=== PATIENT | female | born 1945 | race Caucasian/White ===

== ENCOUNTER → 2016-10-09 | Outpatient (CLI) | payer OTHER ==
[~2016-10-09] MED LIST: ALBU4TAB10 PO; ALBUAER INH; ALLO100T PO; ALPR-411 PO; ALPR1TAB3 PO; ARFO15NE INH; ATOR-24 PO; ATR25; BMX1 PO; BUME1TAB PO; CHOL20007 PO; CLIN300C2 PO; CPR500 PO; DILT240C75 PO; DOCU-94 PO; EFLO13.94 TOP; FLVHFA110 INH; FLVHFA44 INH; FURO-85 PO; FURO40TA3 PO; GFNSR600 PO; GLC/500 PO; HMLI7525 SC; HYDCR1CL TOP; HYDR-3124 PO; INSDGIPEN SC; INSU75IN2 SC; INSU75IN2 SQ; LEVO50TA6 PO; LISI-461 PO; LVQ750 PO; MAGN400T6 PO; MCRB100 PO; MCRK20 PO; MCTP EXT; METF-384 PO; METO1TAB69 PO; MULT-845 PO; MULTCHW; NVLGI/PEN SC; OXGN; QVRINH80 INH; RIVA1TAB4 PO; RRALBUT083 PO; SALI0.6510 NAE; TPRSR/100 PO; TPRSR50 PO; TRIA0.022 EXT; TRIA0.1C20 TOP; TRMCR515 TOP; VNTHFA/IN INH; XRL20 PO; ZLF/50 PO
[2016-10-09 17:39] LABS: BLOOD UREA NITROGEN 24 mg/dl (7-18); BUN/CREATININE RATIO 21.5 (10-20); CARBON DIOXIDE 33 mmol/L (21-32); CHLORIDE 94 mmol/L (98-107); GLUCOSE 150 mg/dl (70-99); POTASSIUM 4.5 mmol/L (3.5-5.1); SODIUM 135 mmol/L (136-145)
--- NOTE | 2016-10-15 12:17 | CODING QUERY MEDICAL NECESSITY ---
SUPPORTING DIAGNOSIS NEEDED A supporting diagnosis is required for the test/procedure performed on this patient in order for us to be reimbursed by the patient's insurance. Please provide a supporting diagnosis for the following test/procedure listed below next to the test name along with your signature. *If there is no additional diagnosis for this patient that would support the following test/procedure please document that below next to the test/procedure. Test(s)/Procedure(s) that require a supporting diagnosis: DOS 10/09 * Vitamin D DIAGNOSIS: Provider Signature: Date: Thank you Kaelyn Gaspar Health Information Management Once completed, please kindly fax back to [phone] For questions please call [phone]
== END | disposition home or self-care (01) ==
LOC: C.LABPVFM 07:30
PROVIDERS: ATTEND Family Medicine
DX: E11.9 Type 2 diabetes mellitus without complications (principal); M10.9 Gout, unspecified; M79.1 Myalgia

== ENCOUNTER 2016-10-18 21:05 | Emergency (ER) | payer OTHER ==
[~2016-10-18] VITALS: Ht 157.5 cm; Wt 156.0 kg
[~2016-10-18 21:05] MED LIST changes: -ALBU4TAB10 PO; -ALLO100T PO; -ALPR1TAB3 PO; -ARFO15NE INH; -ATOR-24 PO; -ATR25; -BMX1 PO; -BUME1TAB PO; -CHOL20007 PO; -CLIN300C2 PO; -CPR500 PO; -DOCU-94 PO; -FLVHFA44 INH; -FURO-85 PO; -FURO40TA3 PO; -GFNSR600 PO; -GLC/500 PO; -HMLI7525 SC; -HYDCR1CL TOP; -HYDR-3124 PO; -INSDGIPEN SC; -INSU75IN2 SC; -INSU75IN2 SQ; -LEVO50TA6 PO; -LISI-461 PO; -LVQ750 PO; -MCRB100 PO; -MCRK20 PO; -MCTP EXT; -METF-384 PO; -METO1TAB69 PO; -MULTCHW; -NVLGI/PEN SC; -QVRINH80 INH; -RIVA1TAB4 PO; -RRALBUT083 PO; -SALI0.6510 NAE; -TPRSR/100 PO; -TPRSR50 PO; -TRIA0.022 EXT; -TRMCR515 TOP; -VNTHFA/IN INH; -XRL20 PO; -ZLF/50 PO
[2016-10-18 21:11] VITALS: TEMP 36.6; Ht 157.5 cm; Wt 156.0 kg
[2016-10-18] MEDS ORDERED: RRALBUT083 PO (22:15)
[2016-10-18] MEDS ORDERED: CHOL20007 PO (22:15)
[2016-10-18 22:37] VITALS: BP 136/53; PULSE 72; O2SAT 94
--- NOTE | 2016-10-18 23:45 | EMERGENCY ROOM VISIT NOTE ---
History Report prepared by Jose: Becky Palma Under the Supervision of: Dr. Emerson Petit D.O. First contact with patient: 21:15 Chief Complaint: BLEEDING Stated Complaint: HEAD BLEED / BIOPSY EARLIER TODAY History of Present Illness The patient is a 71 year old female who presents to the Emergency Room with complaints of persistent bleeding from the left side of her forehead this evening. The patient states that she had [address] Harden earlier today around 3:30PM, including one on her forehead and one on her nose, for possible skin cancer. After her appointment, she started to have bleeding from her forehead which was controlled by the time she got home. She had 3 more episodes of bleeding this evening, most recently about an hour and a half ago, when the biopsy site on her forehead started to bleed profusely. She notes that she started feeling slightly weak and wobbly after some time. Currently, she is feeling better. She is on Xarelto for a-fib. Her most recent dose was last night. She is on 3L oxygen all the time. Pt denies headache, change in vision, fevers, chest pain, shortness of breath, nausea, vomiting, diarrhea, pain with urination, and melena. Source of History: patient Onset: this evening Position: head (forehead) Timing: other (persistent) Associated Symptoms: + weakness, No SOB, No chest pain, No diarrhea, No fevers, No headache, No melena, No nausea, No urinary symptoms, No vomiting Review of Systems See HPI for pertinent positives & negatives. A total of 10 systems reviewed and were otherwise negative. Past Medical & Surgical Medical Problems: (1) Acquired lymphedema (2) Atrial flutter (3) CHF exacerbation (4) Diab W Oth Coma, Type I [Juvenile Type], Uncontrolled (5) Diabetes mellitus type 2, uncontrolled (6) Endometrial cancer (7) Epistaxis (8) Hypertension Nos (9) Hypertension Nos (10) Hypothyroidism (11) Morbid obesity (12) Obesity (13) Sciatica Family History FH: Alzheimers disease Social History Smoking Status: Never Smoker Alcohol Use: none Drug Use: none Marital Status: Housing Status: lives with family Occupation Status: unemployed Current/Historical Medications Scheduled Allopurinol (Zyloprim), 100 MG PO DAILY AT 1200 Atorvastatin (Lipitor), 40 MG PO QAM Cholecalciferol (Vitamin D3), 2,000 INTER.UNIT PO DAILY Diltiazem Hcl Extended Release (Diltiazem Hcl), 240 MG PO QAM Fluticasone Propionate (Flovent Hfa), 2 PUFFS INH BID Furosemide (Lasix), 40 MG PO QAM Insulin Lispro Protamine & Lis (Humalog Mix 75/25 Kwikpen), 80 UNITS SC Q12 Levothyroxine Sodium (Levothyroxine Sodium), 50 MCG PO QAM Lisinopril (Zestril), 10 MG PO DAILY AT 1200 Magnesium Oxide (Mag-Ox), 400 MG PO DAILY AT NOON Metformin Hcl (Glucophage), 1,000 MG PO BID Metoprolol Succinate (Metoprolol Succinate ER), 100 MG PO QAM Multiple Vitamins W/ Minerals (Centrum Silver Adult 50+), 1 TAB PO QAM Oxygen (Oxygen), 3 LITERS NA CONTINOUS Rivaroxaban (Xarelto), 20 MG PO QPM Scheduled PRN Albuterol (Proventil Hfa), 2 PUFFS INH QID PRN for Shortness of Breath Albuterol Sulf (Albuterol Sulfate), 1 UNIT PO Q4 PRN for SOB/Wheezing Alprazolam (Xanax), 0.5 MG PO BID PRN for Anxiety Eflornithine Hcl (Vaniqa), 1 APPLN TOP BID PRN for Hirsutism Hydroxyzine Hcl (Atarax), 25 MG PO Q8 PRN for Itching Triamcinolone Acet 0.1% (Aristocort 0.1%), 1 APPLN TOP BID PRN for Dermatitis Allergies Coded Allergies: Mineral Oil (Verified Allergy, Intermediate, LEGS SWELL, 10/18/16) Penicillins (Verified Allergy, Intermediate, HIVES, 10/18/16) Petrolatum (Verified Allergy, Intermediate, LEGS SWELL, 10/18/16) Metronidazole (Unverified Allergy, Unknown, NAUSEA, 10/18/16) Uncoded Allergies: FLAVONOIDS (Allergy, Unknown, ., 05/17/16) Physical Exam Vital Signs Date Time Temp Pulse Resp B/P Pulse Ox O2 Delivery O2 Flow Rate FiO2 10/18/16 22:37 72 18 136/53 94 Room Air 10/18/16 21:20 75 10/18/16 21:11 36.6 75 26 148/55 95 Nasal Cannula 3.0 Physical Exam GENERAL: Morbidly obese, sitting up in bed, disheveled, on chronic 3 L nasal cannula FACE: Bleeding from biopsy site above left eyebrow, just smaller than a dime sized lesion. Biopsy site under left eye without bleeding. EYE EXAM: normal conjunctiva, PERRL and EOM's grossly intact OROPHARYNX: no exudate, no erythema, lips, buccal mucosa, and tongue normal and mucous membranes are moist NECK: supple, no nuchal rigidity, no adenopathy, non-tender LUNGS: Coarse bilaterally to auscultation. Normal chest wall mechanics HEART: no murmurs, S1 normal and S2 normal ABDOMEN: abdomen soft, non-tender, normo-active bowel sounds, no masses, no rebound or guarding. SKIN: no rashes and no bruising UPPER EXTREMITIES: upper extremities are grossly normal. LOWER EXTREMITIES: No pitting edema. NEURO EXAM: Normal sensorium Medical Decision & Procedures ED Course ED COURSE: Vital signs were reviewed and showed normal vitals. The patients medical record was reviewed The above diagnostic studies were performed and reviewed. ED treatments and interventions as stated above. 2115: The patient was evaluated in room C3. A complete history and physical examination was performed. 4: Upon reevaluation, the patient is resting comfortably. She did not bleed through the dressing.I discussed my findings with the patient and she understands and agrees with the treatment plan. Based on the patients age, coexisting illnesses, exam and lab findings the decision to treat as an outpatient was made. The patient remained stable while under my care. The patient appeared well at the time of discharge. Medical Decision Patient is a 71-year-old female who presents the ER for bleeding from biopsy site which was performed by dermatology. This started intermittently throughout the day following the biopsy around 3 PM. This started again just prior to arrival he cannot control the bleeding. She presented via ALS. She is no other complaints at this time. Pressure dressing was applied with Surgicel. Bleeding was contained. She is monitored for over an hour with no recurrence of the bleeding. Dressing was removed and there is no active bleeding. It was reapplied again and she was instructed to follow-up with her primary care doctor tomorrow. Patient was discharged at her baseline with no other complaint. She was instructed to take her Xa inhibitor tonight as she normally would. Discussed with Pt concerning signs and symptoms to watch out for. Pt was instructed to follow up with their PCP and discussed with the patient their option to return to the ED at anytime for persistent or worsening symptoms. The appropriate anticipatory guidance and out-patient management, including indications for return to the emergency department, were explained at length to the patient and understood. Impression Primary Impression: Post-op bleeding Scribe Attestation The scribe's documentation has been prepared under my direction and personally reviewed by me in its entirety. I confirm that the note above accurately reflects all work, treatment, procedures, and medical decision making performed by me. Departure Information Dispostion Home / Self-Care Referrals Raymond Fierro M.D. (PCP) Patient Instructions ED Wound Check Post Op Bleeding, My [facility] Additional Instructions Please follow up with your primary care doctor with in the next 24 hours. Any worsening of your symptoms, please return to the ED immediately. This includes recurrence of the bleeding, passing out, feeling lightheaded or dizzy, or any other concerning signs or symptoms from your standpoint. Please take your Xa inhibitor as previously prescribed. Please keep the bandage on tonight and follow up with your primary care doctor or surgeon to have it removed tomorrow. Please do not shower bathe Fulvicin place. Problem Qualifiers Primary Impression: Post-op bleeding Surgical complication system/body Area: skin Procedure type: dermatologic Qualified Codes: L76.21 - Postprocedural hemorrhage of skin and subcutaneous tissue following a dermatologic procedure
[2016-10-19] MEDS ORDERED: FURO40TA3 PO (11:23)
[2016-10-19] MEDS ORDERED: INSU75IN2 SC (13:12)
[2016-10-19] MEDS ORDERED: TPRSR/100 PO (18:31)
[2016-10-19] MEDS ORDERED: LEVO50TA6 PO (18:31)
[2016-10-19] MEDS ORDERED: ZLF/50 PO (19:44)
[2016-10-19] MEDS ORDERED: TRMCR515 TOP (19:44)
[2016-10-19] MEDS ORDERED: VNTHFA/IN INH (19:44)
[2016-10-19] MEDS ORDERED: METF-384 PO (21:09)
[2016-10-19] MEDS ORDERED: LISI-461 PO (21:09)
[2016-10-19] MEDS ORDERED: RIVA1TAB4 PO (21:09)
[2016-10-19] MEDS ORDERED: ATOR-24 PO (21:09)
[2016-10-19] MEDS ORDERED: ALLO100T PO (21:32)
[2016-10-19] MEDS ORDERED: HYDR-3124 PO (21:32)
[2016-11-20] MEDS ORDERED: INSDGIPEN SC (13:32)
[2016-11-20] MEDS ORDERED: MCRK20 PO (13:32)
[2016-11-20] MEDS ORDERED: BMX1 PO (13:32)
[2016-11-20] MEDS ORDERED: TPRSR50 PO (13:32)
[2017-02-09] MEDS ORDERED: METO1TAB69 PO (23:41)
[2017-02-16] MEDS ORDERED: CPR500 PO (08:08)
[2017-02-16] MEDS ORDERED: ALPR1TAB3 PO (08:08)
[2017-02-16] MEDS ORDERED: BMX1 PO ×2 (08:08→15:01)
[2017-02-16] MEDS ORDERED: MCRK20 PO (08:08)
[2017-02-16] MEDS ORDERED: MCRB100 PO (08:08)
[2017-02-16] MEDS ORDERED: XRL20 PO (08:10)
[2017-03-13] MEDS ORDERED: CLIN300C2 PO (12:33)
== END 2016-10-18 23:04 | disposition home or self-care (01) ==
LOC: EDBD 21:05 → C.EDC 21:08
DX: L76.21 Postprocedural hemorrhage of skin and subcutaneous tissue following a dermatologic procedure (principal); I10 Essential (primary) hypertension; E11.9 Type 2 diabetes mellitus without complications; E03.9 Hypothyroidism, unspecified; I48.92 Unspecified atrial flutter; I50.9 Heart failure, unspecified; Z79.4 Long term (current) use of insulin; Z79.84 Long term (current) use of oral hypoglycemic drugs; Z79.899 Other long term (current) drug therapy; Z88.0 Allergy status to penicillin; Z88.8 Allergy status to other drugs, medicaments and biological substances

== ENCOUNTER → 2016-10-18 | Outpatient (CLI) | payer OTHER | END | disposition home or self-care (01) | LOC: C.PATHSPEC 12:16 | PROVIDERS: ATTEND Plastic Surgery | DX: L98.9 Disorder of the skin and subcutaneous tissue, unspecified (principal); L57.0 Actinic keratosis ==

== ENCOUNTER 2016-10-19 19:28 | Inpatient (IN) | payer OTHER ==
[2016-10-18 23:18] VITALS: BP 134/61; PULSE 89; TEMP 36.9; O2SAT 94; BMI 63.5
[~2016-10-19] VITALS: Ht 157.5 cm; Wt 154.5 kg
[~2016-10-19 19:28] MED LIST changes: +CHOL20007 PO; +FURO40TA3 PO; +INSU75IN2 SC; +LEVO50TA6 PO; +RRALBUT083 PO; +TPRSR/100 PO
[2016-10-19 19:36] VITALS: Ht 157.5 cm; Wt 154.5 kg
[2016-10-19] MEDS ORDERED: SODIUM CHLORIDE 0.9% 1000ML 1,000 ML IV STA (19:41)
[2016-10-19] MEDS ORDERED: TRMCR515 TOP (19:44)
[2016-10-19] MEDS ORDERED: ZLF/50 PO (19:44)
[2016-10-19] MEDS ORDERED: VNTHFA/IN INH (19:44)
--- NOTE | 2016-10-19 19:47 | EMERGENCY ROOM VISIT NOTE ---
History Report prepared by Jose: Shirley Gtz Under the Supervision of: Dr. Lina Alexander M.D. First contact with patient: 19:34 Chief Complaint: WEAKNESS Stated Complaint: WEAKNESS, LOW SPO2 STAT History of Present Illness The patient is a 71 year old female who presents to the Emergency Room with complaints of persistent weakness for the past day. She is accompanied by her . She reports yesterday she had a skin biopsy done on her face by Dr. Harden, [facility] [place] [facility], to check for skin cancer. Afterwards, the site started bleeding and didn't stop until she came here to the ED last night. She is currently on blood thinners. She reports she was released home last night, and this morning when she woke up, she felt extremely weak. The patient states she had been ambulating OK before this, but today had to use her walker to get around, which is unusual for her. She denies any recent fevers. 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 A total of 10 systems reviewed and were otherwise negative. Past Medical & Surgical Medical Problems: (1) Acquired lymphedema (2) Atrial flutter (3) CHF exacerbation (4) Diab W Oth Coma, Type I [Juvenile Type], Uncontrolled (5) Diabetes mellitus type 2, uncontrolled (6) Endometrial cancer (7) Epistaxis (8) Hypertension Nos (9) Hypertension Nos (10) Hypothyroidism (11) Morbid obesity (12) Obesity (13) Sciatica Family History FH: Alzheimers disease Social History Smoking Status: Never Smoker Alcohol Use: none Drug Use: none Marital Status: Housing Status: lives with family Occupation Status: unemployed Current/Historical Medications Scheduled Allopurinol (Zyloprim), 100 MG PO DAILY AT 1200 Atorvastatin (Lipitor), 40 MG PO QAM Cholecalciferol (Vitamin D3), 2,000 INTER.UNIT PO DAILY Diltiazem Hcl Extended Release (Diltiazem Hcl), 240 MG PO QAM Fluticasone Propionate (Flovent Hfa), 2 PUFFS INH BID Furosemide (Lasix), 40 MG PO QAM Insulin Lispro Protamine & Lis (Humalog Mix 75/25 Kwikpen), 80 UNITS SC Q12 Levothyroxine Sodium (Levothyroxine Sodium), 50 MCG PO QAM Lisinopril (Zestril), 10 MG PO DAILY AT 1200 Magnesium Oxide (Mag-Ox), 400 MG PO DAILY AT NOON Metformin Hcl (Glucophage), 1,000 MG PO BID Metoprolol Succinate (Metoprolol Succinate ER), 100 MG PO QAM Multiple Vitamins W/ Minerals (Centrum Silver Adult 50+), 1 TAB PO QAM Oxygen (Oxygen), 3 LITERS NA CONTINOUS Rivaroxaban (Xarelto), 20 MG PO QPM Sertraline HCl (Sertraline HCl), 50 MG PO DAILY Triamcinolone Acet (Triamcinolone Acetonide), 1 APPLN TOP PRN UD Scheduled PRN Albuterol Hfa (Ventolin Hfa), 2 PUFFS INH Q4 PRN for SOB/Wheezing Albuterol Sulf (Albuterol Sulfate), 1 UNIT PO Q4 PRN for SOB/Wheezing Alprazolam (Xanax), 0.5 MG PO BID PRN for Anxiety Eflornithine Hcl (Vaniqa), 1 APPLN TOP BID PRN for Hirsutism Hydroxyzine Hcl (Atarax), 25 MG PO Q8 PRN for Itching Allergies Coded Allergies: Mineral Oil (Verified Allergy, Intermediate, LEGS SWELL, 10/18/16) Penicillins (Verified Allergy, Intermediate, HIVES, 10/18/16) Petrolatum (Verified Allergy, Intermediate, LEGS SWELL, 10/18/16) Metronidazole (Unverified Allergy, Unknown, NAUSEA, 10/18/16) Uncoded Allergies: FLAVONOIDS (Allergy, Unknown, ., 05/17/16) Physical Exam Vital Signs Date Time Temp Pulse Resp B/P Pulse Ox O2 Delivery O2 Flow Rate FiO2 10/19/16 22:00 72 30 93 Nasal Cannula 3.0 10/19/16 21:30 72 32 115/67 97 Nasal Cannula 3.0 10/19/16 21:00 72 31 126/91 96 Nasal Cannula 3.0 10/19/16 20:34 94/49 10/19/16 20:30 71 19 98 Nasal Cannula 3.0 10/19/16 20:00 72 31 98 Nasal Cannula 3.0 10/19/16 19:41 72 10/19/16 19:36 36.7 75 22 98/46 96 Nasal Cannula 3.0 10/19/16 19:36 80 Room Air 10/18/16 23:18 36.9 89 20 134/61 94 Nasal Cannula 3.0 Physical Exam Vital signs reviewed. General: Elderly, obese 71 year old female, on nasal canula Oxygen, in no significant distress. HEENT: No scleral icterus, PERRLA, neck supple. Healing wound to the left infraorbital region, healing wound to the left supraorbital region, no active bleeding, no surrounding erythema, no drainage. Cardiovascular: Regular rate and rhythm, no extra sounds. Pulmonary: Clear to auscultation bilaterally, normal work of breathing. On nasal cannula oxygen. Abdomen: Soft, morbidly obese, nontender, nondistended, positive bowel sounds. Musculoskeletal: Atraumatic, lower extremities with dependent peripheral edema, non-pitting edema. Neurologic: Patient awake alert and oriented x 3, equal strength in all 4 extremities. Cranial nerves 2 through 12 grossly intact. Skin: Warm, dry, no rash Medical Decision & Procedures ER Provider Diagnostic Interpretation: This X-Ray was reviewed and interpreted by myself and the radiologist. CHEST ONE VIEW PORTABLE IMPRESSION: Mild congestive failure with superimposed right basilar infiltrate/effusion. Electronically signed by: Richie Bowen M.D. 10/19/2016 8:[address] scan was reviewed and interpreted by the radiologist and reviewed by myself. HEAD CT NONCONTRAST Impression: No acute intracranial abnormality. Electronically signed by: Richie Bowen M.D. 10/19/2016 9:27 PM Laboratory Results Test 10/19/16 00:00 10/19/16 20:10 10/19/16 20:19 Urine Color DK YELLOW Urine Appearance CLOUDY (CLEAR) Urine pH 5.0 (4.5-7.5) Urine Specific [place] 1.020 (1.000-1.030) Urine Protein TRACE (NEG) Urine Glucose (UA) NEG (NEG) Urine Ketones TRACE (NEG) Urine Occult Blood NEG (NEG) Urine Nitrite NEG (NEG) Urine Bilirubin NEG (NEG) Urine Urobilinogen NEG (NEG) Urine Leukocyte Esterase TRACE (NEG) Urine WBC (Auto) 5-10 /hpf (0-5) Urine RBC (Auto) 0-4 /hpf (0-4) Urine Hyaline Casts (Auto) 10-30 /lpf (0-5) Urine Epithelial Cells (Auto) >30 /lpf (0-5) Urine Bacteria (Auto) 2+ (NEG) Urine Renal Epithelial Cells 5-10 /lpf (0-5) Immature Granulocyte % (Auto) 0.4 % White Blood Count 7.44 K/uL (4.8-10.8) Red Blood Count 4.56 M/uL (4.2-5.4) Hemoglobin 13.2 g/dL (12.0-16.0) Hematocrit 42.9 % (37-47) Mean Corpuscular Volume 94.1 fL (80-100) Mean Corpuscular Hemoglobin 28.9 pg (25-34) Mean Corpuscular Hemoglobin Concent 30.8 g/dl (32-36) Platelet Count 174 K/uL (130-400) Mean Platelet Volume 9.6 fL (7.4-10.4) Neutrophils (%) (Auto) 76.3 % Lymphocytes (%) (Auto) 15.1 % Monocytes (%) (Auto) 6.3 % Eosinophils (%) (Auto) 1.2 % Basophils (%) (Auto) 0.7 % Neutrophils # (Auto) 5.68 K/uL (1.4-6.5) Lymphocytes # (Auto) 1.12 K/uL (1.2-3.4) Monocytes # (Auto) 0.47 K/uL (0.11-0.59) Eosinophils # (Auto) 0.09 K/uL (0-0.5) Basophils # (Auto) 0.05 K/uL (0-0.2) Immature Granulocyte # (Auto) 0.03 K/uL (0.00-0.02) Prothrombin Time 11.6 SECONDS (9.0-12.0) Prothromb Time International Ratio 1.1 (0.9-1.1) Activated Partial Thromboplast Time 27.3 SECONDS (21.0-31.0) Partial Thromboplastin Ratio 1.1 Total Bilirubin 0.6 mg/dl (0.2-1) Direct Bilirubin 0.2 mg/dl (0-0.2) Aspartate Amino Transf (AST/SGOT) 46 U/L (15-37) Alanine Aminotransferase (ALT/SGPT) 61 U/L (12-78) Alkaline Phosphatase 152 U/L (45-117) Total Protein 7.3 gm/dl (6.4-8.2) Albumin 3.3 gm/dl (3.4-5.0) Bedside Troponin I 0.010 ng/ml (0-0.045) Laboratory results per my review. Medications Administered Medications (Trade) Dose Ordered Sig/Johnnie Route Start Time Stop Time Status Last Admin Dose Admin Sodium Chloride (Nss 1000ml) 1,000 ml @ 125 mls/hr Q8H STAT IV 10/19/16 19:41 10/19/16 23:26 DC 10/19/16 21:05 125 MLS/HR Levofloxacin 750 mg 750 mg NOW STAT IV 10/19/16 21:22 10/19/16 21:24 DC 10/19/16 22:45 750 MG Sodium Chloride (Nss 1000ml) 1,000 ml @ 80 mls/hr [id number] ONCE IV 10/19/16 22:15 10/20/16 10:44 DC 10/19/16 23:41 80 MLS/HR Ondansetron HCl (Zofran Inj) 4 mg Q6H PRN IV 10/19/16 22:15 11/18/16 22:14 10/20/16 16:09 4 MG ECG Indication: weakness Rate (beats per minute): 72 Rhythm: sinus rhythm Findings: nonspecific-ST abn, no ectopy, other (low voltage QRS, short NC, QTC is 424) ED Course 1937: Past medical records reviewed. The patient was evaluated in room B6. A complete history and physical examination was performed. 1940: NSS 1000 ml @ 125 mls/hr IV. 2121: Levaquin 750 mg IV. 2134: I reevaluated the patient. She is resting comfortably. I offered her the chance to remain in the hospital for further evaluation and management and she agreed, as she does not feel like she can go home tonight. 2204: I discussed the patients case with Dr. Park, [facility] Hospitalist. The patient will be further evaluated. Medical Decision Differential diagnosis: Etiologies such as metabolic, infection, hypo/hyperglycemia, electrolyte abnormalities, cardiac sources, intracerebral event, toxicologic, neurologic, as well as others were entertained. This patient was evaluated and appeared to be in no significant distress. The patient is on nasal cannula oxygen, resting in the bed. IV access was obtained and laboratory work was drawn. The patient was hydrated with normal saline solution. Chest x-ray was performed and reveals a right basilar infiltrate with effusion. This is new from previous x-ray. White blood cell count is normal, influenza swab is negative. Urinalysis is Equivocal for infection, cultures pending. Blood cultures are pending and the patient was medicated with IV Levaquin. She will be evaluated by the hospitalist for further management. Patient and are aware of the plan and agree. Consults Time Called: 2143 Consulting Physician: Dr. Park, [facility] Hospitalist Returned Call: 2204 I discussed the patients case with Dr. Park [facility] Hospitalist. The patient will be further evaluated. Impression Primary Impression: Pneumonia Additional Impression: Generalized weakness Scribe Attestation The scribe's documentation has been prepared under my direction and personally reviewed by me in its entirety. I confirm that the note above accurately reflects all work, treatment, procedures, and medical decision making performed by me. Departure Information Dispostion Being Evaluated By Hospitalist Referrals Raymond Fierro M.D. (PCP) Patient Instructions My [facility] Problem Qualifiers Primary Impression: Pneumonia Pneumonia type: due to unspecified organism Laterality: right Lung location : lower lobe of lung Qualified Codes: J18.1 - Lobar pneumonia, unspecified organism
[2016-10-19 20:23] LABS: BASO % 0.7 %; BASO ABS # 0.05 K/uL (0-0.2); COMPLETE YES; EOS % 1.2 %; HEMATOCRIT 42.9 % (37-47); IG% 0.4 %; LYMPH % 15.1 %; LYMPH ABS # 1.12 K/uL (1.2-3.4); MEAN CELL VOLUME 94.1 fL (80-100); MEAN CORPUSCULAR HEMOGLOBIN 28.9 pg (25-34); MEAN CORPUSCULAR HGB CONC 30.8 g/dl (32-36); MEAN PLATELET VOLUME 9.6 fL (7.4-10.4); MONO % 6.3 %; NEUT % 76.3 %; PLATELET COUNT 174 K/uL (130-400); RED BLOOD COUNT 4.56 M/uL (4.2-5.4); WHITE BLOOD COUNT 7.44 K/uL (4.8-10.8)
--- NOTE | 2016-10-19 20:26 | DIAGNOSTIC IMAGING REPORT ---
CHEST ONE VIEW PORTABLE CLINICAL HISTORY: weakness dyspnea COMPARISON STUDY: 12/04/2015 FINDINGS: Interval development of a right basilar parenchymal infiltrate. Superimposed component of mild congestive failure. Probable small right pleural effusion. IMPRESSION: Mild congestive failure with superimposed right basilar infiltrate/effusion. Electronically signed by: Richie Bowen M.D. 10/19/2016 8:24 PM Dictated Date/Time: 10/19/2016 8:24 PM
[2016-10-19 20:36] LABS: INR 1.1 (0.9-1.1); PARTIAL THROMBOPLASTIN RATIO 1.1; PROTHROMBIN TIME (PATIENT) 11.6 SECONDS (9.0-12.0)
[2016-10-19 20:43] LABS: BUN/CREATININE RATIO 26.9 (10-20); CALCIUM 8.7 mg/dl (8.5-10.1); CREATININE 1.4 mg/dl (0.60-1.20); MAGNESIUM 2.4 mg/dl (1.8-2.4); POTASSIUM 5.9 mmol/L (3.5-5.1)
[2016-10-19] MEDS ORDERED: RIVA1TAB4 PO (21:09)
[2016-10-19] MEDS ORDERED: METF-384 PO (21:09)
[2016-10-19] MEDS ORDERED: ATOR-24 PO (21:09)
[2016-10-19] MEDS ORDERED: LISI-461 PO (21:09)
[2016-10-19 21:13] LABS: REVIEW REQ? YES; URINE APPEARANCE CLOUDY (CLEAR); URINE BILIRUBIN NEG (NEG); URINE COLOR DK YELLOW; URINE EPITHELIAL CELL AUTO >30 /lpf (0-5); URINE NITRITE NEG (NEG); UROBILINOGEN NEG (NEG); ZZURINE CULT IF INDIC CATH YES
[2016-10-19 21:14] LABS: MANUAL MICROSCOPIC REQUIRED? NO
[2016-10-19] MEDS ORDERED: LEVAQUIN 750MG / 150ML D5W IV STA (21:22)
--- NOTE | 2016-10-19 21:28 | DIAGNOSTIC IMAGING REPORT ---
HEAD CT NONCONTRAST CT DOSE: 691.05 mGy.cm HISTORY: Mental status change weakness, falls TECHNIQUE: Multiaxial CT images of the head were performed without the use of intravenous contrast. Comparison: 11/12/2013 Findings: The paranasal sinuses and mastoid air cells are clear. The calvarium and skull base are intact. The ventricles and sulci are within normal limits. There is no mass, hematoma, midline shift, or acute infarct. Impression: No acute intracranial abnormality. Electronically signed by: Richie Bowen M.D. 10/19/2016 9:27 PM Dictated Date/Time: 10/19/2016 9:26 PM
[2016-10-19] MEDS ORDERED: HYDR-3124 PO (21:32)
[2016-10-19] MEDS ORDERED: ALLO100T PO (21:32)
[2016-10-19] MEDS ORDERED: SODIUM CHLORIDE 0.9% 1000ML 1,000 ML IV ONE (22:15)
[2016-10-19] MEDS ORDERED: hydrOXYzine HCL 25 MG TAB PO PRN (22:15)
[2016-10-19] MEDS ORDERED: ALUMINUM/MAGNESIUM/SIMETH (MAALOX MAX) 30 ML UDC PO PRN (22:15)
[2016-10-19] MEDS ORDERED: POLYETHYLENE (MIRALAX) 17 GM PACK PO PRN (22:15)
[2016-10-19] MEDS ORDERED: ACETAMINOPHEN 325 MG TAB PO PRN (22:15)
[2016-10-19] MEDS ORDERED: ONDANSETRON INJ 2 MG/ML 2 ML VIAL IV PRN (22:15)
[2016-10-19] MEDS ORDERED: MAGNESIUM HYDROXIDE SUSP 30 ML UDC PO PRN (22:15)
[2016-10-19] MEDS ORDERED: MoRPHine SULFATE 2 MG/ML CARP IV PRN (22:15)
[2016-10-19] MEDS ORDERED: ALPRAZOLAM 0.5 MG TAB PO PRN (22:15)
[2016-10-19] MEDS ORDERED: SODIUM POLYST. SULF SUSP 15G/60ML PO STA (22:21)
--- NOTE | 2016-10-19 22:55 | History and Physical ---
History & Physical Date & Time of Service: Oct 19, 2016 at 22:23 Chief Complaint: Weakness, Low Spo2 Stat Primary Care Physician: Raymond Fierro M.D. History of Present Illness Source: patient 71 y/o F Hx diastolic CHF, morbid obesity, DM, PAF presenting with significant weakness which has persisted since waking up this AM. She denies excessive SOB , denies fevers, dysuria, N/V/D. She denies CP or diaphoresis. The pt underwent a facial skin biopsy one day prior which is not currently bleeding but may have bled excessively as she is on Xarelto regularly. Initial labs reveal acute renal impairment and hyperkalemia. CXR is consistent with acute RLL PNM. She uses 3l 02 continuously stating that this is due to her atrial flutter rather than any lung disease. Past Medical/Surgical History Medical Problems: (1) Acquired lymphedema Status: Chronic (2) Atrial flutter Status: Chronic (3) CHF exacerbation Status: Resolved (4) Diab W Oth Coma, Type I [Juvenile Type], Uncontrolled Status: Chronic (5) Diabetes mellitus type 2, uncontrolled Status: Chronic (6) Endometrial cancer Status: Resolved (7) Epistaxis Status: Resolved (8) Hypertension Nos Status: Chronic (9) Hypothyroidism Status: Chronic (10) Morbid obesity Status: Chronic (11) Obesity Status: Chronic (12) Sciatica Status: Chronic Family History FH: Alzheimers disease Social History Smoking Status: Never Smoker Drug Use: none Marital Status: Housing status: lives with family Occupational Status: unemployed Immunizations History of Influenza Vaccine: Unknown Influenza Vaccine Date: Jul 25, 2012 History of Tetanus Vaccine?: Unknown History of Pneumococcal: Unknown History of Hepatitis B Vaccine: Unknown Multi-Drug Resistant Organisms History of MDRO: No Allergies Coded Allergies: Mineral Oil (Verified Allergy, Intermediate, LEGS SWELL, 10/18/16) Penicillins (Verified Allergy, Intermediate, HIVES, 10/18/16) Petrolatum (Verified Allergy, Intermediate, LEGS SWELL, 10/18/16) Metronidazole (Unverified Allergy, Unknown, NAUSEA, 10/18/16) Uncoded Allergies: FLAVONOIDS (Allergy, Unknown, ., 05/17/16) Home Medications Scheduled Allopurinol (Zyloprim), 100 MG PO DAILY AT 1200 Atorvastatin (Lipitor), 40 MG PO QAM Cholecalciferol (Vitamin D3), 2,000 INTER.UNIT PO DAILY Diltiazem Hcl Extended Release (Diltiazem Hcl), 240 MG PO QAM Fluticasone Propionate (Flovent Hfa), 2 PUFFS INH BID Furosemide (Lasix), 40 MG PO QAM Insulin Lispro Protamine & Lis (Humalog Mix 75/25 Kwikpen), 80 UNITS SC Q12 Levothyroxine Sodium (Levothyroxine Sodium), 50 MCG PO QAM Lisinopril (Zestril), 10 MG PO DAILY AT 1200 Magnesium Oxide (Mag-Ox), 400 MG PO DAILY AT NOON Metformin Hcl (Glucophage), 1,000 MG PO BID Metoprolol Succinate (Metoprolol Succinate ER), 100 MG PO QAM Multiple Vitamins W/ Minerals (Centrum Silver Adult 50+), 1 TAB PO QAM Oxygen (Oxygen), 3 LITERS NA CONTINOUS Rivaroxaban (Xarelto), 20 MG PO QPM Sertraline HCl (Sertraline HCl), 50 MG PO DAILY Triamcinolone Acet (Triamcinolone Acetonide), 1 APPLN TOP PRN UD Scheduled PRN Albuterol Hfa (Ventolin Hfa), 2 PUFFS INH Q4 PRN for SOB/Wheezing Albuterol Sulf (Albuterol Sulfate), 1 UNIT PO Q4 PRN for SOB/Wheezing Alprazolam (Xanax), 0.5 MG PO BID PRN for Anxiety Eflornithine Hcl (Vaniqa), 1 APPLN TOP BID PRN for Hirsutism Hydroxyzine Hcl (Atarax), 25 MG PO Q8 PRN for Itching Review of Systems Constitutional: + fatigue, + weakness, No chills, No fever, No sweats Eyes: No eye pain, No worsening of vision ENT: No hearing loss, No unusual epistaxis Respiratory: No cough, No sputum, No wheezing Cardiovascular: No PND, No chest pain, No orthopnea Abdomen: No nausea, No pain, No vomiting Musculoskeletal: No joint pain Genitourinary - Female: No dysuria, No urinary frequency, No urinary urgency Neurologic: No memory loss, No paralysis, No weakness Psychiatric: No depression symptoms Endocrine: No fatigue Hematologic / Lymphatic: No abnormal bleeding/bruising Integumentary: No rash Allergic / Immunologic: No environmental allergies Physical Exam Vital Signs Date Time Temp Pulse Resp B/P Pulse Ox O2 Delivery O2 Flow Rate FiO2 10/19/16 19:41 72 10/19/16 19:36 36.7 75 22 98/46 96 Nasal Cannula 3.0 10/19/16 19:36 80 Room Air General Appearance: no apparent distress Head: normocephalic, atraumatic Eyes: normal inspection, PERRL, EOMI ENT: normal ENT inspection, pharynx normal Neck: supple, no JVD Respiratory/Chest: chest non-tender, no respiratory distress, + pertinent finding (Exam is very limited due to pt habitus) Cardiovascular: + irregularly irregular, + pertinent finding (Exam is very limited due to pt habitus) Abdomen/GI: normal bowel sounds, non tender, soft Back: normal inspection Extremities/Musculoskelatal: normal inspection, + pedal edema Neurologic/Psych: cashier gambling II-XII nml as tested, no motor/sensory deficits, alert, normal mood/affect, normal reflexes, oriented x 3 Skin: normal color, warm/dry, no rash (Healing area under L eye due to biopsy) Diagnostics Laboratory Results Results Past 24 Hours Test 10/19/16 00:00 10/19/16 20:10 10/19/16 20:19 Range/Units Urine Color DK YELLOW Urine Appearance CLOUDY CLEAR Urine pH 5.0 4.5-7.5 Urine Specific Ismay 1.020 1.000-1.030 Urine Protein TRACE NEG Urine Glucose (UA) NEG NEG Urine Ketones TRACE NEG Urine Occult Blood NEG NEG Urine Nitrite NEG NEG Urine Bilirubin NEG NEG Urine Urobilinogen NEG NEG Urine Leukocyte Esterase TRACE NEG Urine WBC (Auto) 5-10 0-5 /hpf Urine RBC (Auto) 0-4 0-4 /hpf Urine Hyaline Casts (Auto) 10-30 0-5 /lpf Urine Epithelial Cells (Auto) >30 0-5 /lpf Urine Bacteria (Auto) 2+ NEG Urine Renal Epithelial Cells 5-10 0-5 /lpf White Blood Count 7.44 4.8-10.8 K/uL Red Blood Count 4.56 4.2-5.4 M/uL Hemoglobin 13.2 12.0-16.0 g/dL Hematocrit 42.9 37-47 % Mean Corpuscular Volume 94.1 80-100 fL Mean Corpuscular Hemoglobin 28.9 25-34 pg Mean Corpuscular Hemoglobin Concent 30.8 32-36 g/dl Platelet Count 174 130-400 K/uL Mean Platelet Volume 9.6 7.4-10.4 fL Neutrophils (%) (Auto) 76.3 % Lymphocytes (%) (Auto) 15.1 % Monocytes (%) (Auto) 6.3 % Eosinophils (%) (Auto) 1.2 % Basophils (%) (Auto) 0.7 % Neutrophils # (Auto) 5.68 1.4-6.5 K/uL Lymphocytes # (Auto) 1.12 1.2-3.4 K/uL Monocytes # (Auto) 0.47 0.11-0.59 K/uL Eosinophils # (Auto) 0.09 0-0.5 K/uL Basophils # (Auto) 0.05 0-0.2 K/uL RDW Standard Deviation 61.9 36.4-46.3 fL RDW Coefficient of Variation 18.1 11.5-14.5 % Immature Granulocyte % (Auto) 0.4 % Immature Granulocyte # (Auto) 0.03 0.00-0.02 K/uL Prothrombin Time 11.6 9.0-12.0 SECONDS Prothromb Time International Ratio 1.1 0.9-1.1 Activated Partial Thromboplast Time 27.3 21.0-31.0 SECONDS Partial Thromboplastin Ratio 1.1 Sodium Level 140 136-145 mmol/L Potassium Level 5.9 3.5-5.1 mmol/L Chloride Level 100 98-107 mmol/L Carbon Dioxide Level 34 21-32 mmol/L Anion Gap 6.0 3-11 mmol/L Blood Urea Nitrogen 38 7-18 mg/dl Creatinine 1.40 0.60-1.20 mg/dl Est Creatinine Clear Calc Drug Dose 53.4 ml/min Estimated GFR () 43.4 Estimated GFR (Non- 37.4 BUN/Creatinine Ratio 26.9 10-20 Random Glucose 159 70-99 mg/dl Calcium Level 8.7 8.5-10.1 mg/dl Magnesium Level 2.4 1.8-2.4 mg/dl Total Bilirubin 0.6 0.2-1 mg/dl Direct Bilirubin 0.2 0-0.2 mg/dl Aspartate Amino Transf (AST/SGOT) 46 15-37 U/L Alanine Aminotransferase (ALT/SGPT) 61 12-78 U/L Alkaline Phosphatase 152 45-117 U/L Total Protein 7.3 6.4-8.2 gm/dl Albumin 3.3 3.4-5.0 gm/dl Bedside Troponin I 0.010 0-0.045 ng/ml Microbiology Results 10/19/16 Blood Culture, Received Pending 10/19/16 Blood Culture, Received Pending 10/19/16 Urine Culture, Received Pending Diagnostic Radiology CXR: Mild congestive failure with superimposed right basilar infiltrate/effusion. EKG EKG may be flutter with 10/17 Impression Assessment and Plan 71 y/o F Hx diastolic CHF, morbid obesity, DM, PAF presenting with significant weakness which has persisted since waking up this AM. She denies excessive SOB , denies fevers, dysuria, N/V/D. She denies CP or diaphoresis. The pt underwent a facial skin biopsy one day prior which is not currently bleeding but may have bled excessively as she is on Xarelto regularly. Initial labs reveal acute renal impairment and hyperkalemia. CXR is consistent with acute RLL PNM. 1) Weakness - possibly due to PNM, dehydration - the pts primary complaint is persistent weakness - per labs she may be dehydrated although it is not possible to assess her volume status clinically due to her habitus. We will treat for PNM and provide gentle IVF while monitoring on telemetry. Due to her cardiovascular risk factor we will also trend troponins to r/o an acute event as the cause of her fatigue. 2) Renal impairment and hyperkalemia - the pt states she had a high K recently on outpt labs - it is not clear how this was addressed. Her creatinine is approximately 30% above baseline. We have provided IVF and a single dose of Kayexalate. BMP will be trended and she will be monitored on telemetry. If she exhibits worsening SOB we may consult cardiology as again we cannot accurately yogesh her volume status. Her AM dose of Lasix has been held pending reassessment. 3) Aflutter - rate is currently controlled with Diltiazem - pt is anticoagulated with Pradaxa 4) DM - placed on SS in hospital 5) Diastolic CHF - There is mention of vascular congestion on the CXR although her lung exam is largely clear - we cannot again gauge her volume status and have held her Lasix due to renal impairment - we will consult cardiology as she may require med adjustment prior to D/C and they may have a more recent echo on record. Full code - anticoagulated with Pradaxa Total time for this admit including chart review - review of labs, EKG, imaging - discussion with ER MD and pt - 41 min Level of Care Telemetry Resuscitation Status FULL RESUSCITATION VTE Prophylaxis VTE Risk Assessment Done? Y/N: Yes Risk Level: Moderate Given or contraindicated: Other Anticoagulation
[2016-10-20] VITALS (11 sets, daily range): BP systolic 115–155; BP diastolic 65–81; PULSE 63–118; TEMP 36.4–37.3; O2SAT 92–97
[2016-10-20] MEDS ORDERED: GLUCOSE 40% GEL 15 GM TUBE PO PRN (00:30)
[2016-10-20] MEDS ORDERED: GLUCOSE 10 TABS/TUBE PO PRN (00:30)
[2016-10-20] MEDS ORDERED: DEXTROSE 50% 50 ML SYR IV PRN (00:30)
[2016-10-20] MEDS ORDERED: GLUCAGON FOR INJ 1 MG VIAL SQ PRN (00:30)
[2016-10-20] MEDS ORDERED: COUGH DROP (SUGAR FREE) LOZ 24 LOZ/1 BOX ONE (01:23)
[2016-10-20] MEDS ORDERED: ALBUTEROL 0.083% NEBU SOLN 3 ML VIAL INH PRN (01:45)
[2016-10-20 02:40] LABS: BUN/CREATININE RATIO 28.2 (10-20); CALCIUM 8.6 mg/dl (8.5-10.1); CREATININE 1.4 mg/dl (0.60-1.20); POTASSIUM 5.4 mmol/L (3.5-5.1)
[2016-10-20] MEDS: LEVOTHYROXINE 50 MCG TAB PO SCH (05:50)
[2016-10-20] MEDS: INSULIN ASPART 100 UNITS/ML 3 ML PEN SC SCH ×4 (06:45→21:26)
[2016-10-20] MEDS ORDERED: LEVOFLOXACIN CONSULT ACTIVE PRN (07:00)
[2016-10-20] MEDS: ALBUT/IPRATROP 3MG/0.5MG NEB 3 ML VIAL INH SCH ×3 (07:05→18:43)
[2016-10-20] MEDS: FLUTICASONE HFA 110MCG INHALER INH SCH ×2 (07:55→21:23)
[2016-10-20] MEDS: CHOLECALCIFEROL 1000 INTER.UNIT TAB PO SCH (07:57)
[2016-10-20] MEDS: LISINOPRIL 10 MG TAB PO SCH (07:57)
[2016-10-20] MEDS: ALLOPURINOL 100 MG TAB PO SCH (07:58)
[2016-10-20] MEDS: MAGNESIUM OXIDE 400 MG TAB PO SCH (07:59)
[2016-10-20] MEDS: DILTIAZEM HCL 240 MG CAPCR PO SCH (08:00)
[2016-10-20] MEDS: SERTRALINE HCL 50 MG TAB PO SCH (08:01)
[2016-10-20] MEDS: ATORVASTATIN 40 MG TAB PO SCH (08:01)
[2016-10-20] MEDS: METOPROLOL SUCC 50MG EXT REL TAB PO SCH (08:01)
[2016-10-20 08:45] LABS: HEMATOCRIT 41.2 % (37-47); MEAN CELL VOLUME 93.8 fL (80-100); MEAN CORPUSCULAR HEMOGLOBIN 28.2 pg (25-34); MEAN CORPUSCULAR HGB CONC 30.1 g/dl (32-36); MEAN PLATELET VOLUME 9.8 fL (7.4-10.4); PLATELET COUNT 165 K/uL (130-400); RED BLOOD COUNT 4.39 M/uL (4.2-5.4); WHITE BLOOD COUNT 6.58 K/uL (4.8-10.8)
[2016-10-20] MEDS ORDERED: FUROSEMIDE 40 MG TAB PO SCH (09:00)
[2016-10-20 09:08] LABS: BUN/CREATININE RATIO 28.9 (10-20); CALCIUM 8.4 mg/dl (8.5-10.1); CREATININE 1.3 mg/dl (0.60-1.20); MAGNESIUM 2.4 mg/dl (1.8-2.4); PHOSPHORUS 3.6 mg/dl (2.5-4.9); POTASSIUM 5.2 mmol/L (3.5-5.1)
--- NOTE | 2016-10-20 10:24 | Cardiology Consultation ---
Cardiology Consultation Date of Consultation: Oct 20, 2016. Requesting Physician: Dr. Park Reason for Consultation: Atrial flutter, diastolic dysfunction Pt evaluation today including: conversation w/ patient, conversation w/ family , physical exam, lab review, review of studies, review of inpatient medication list, conversation w/ attending History of Present Illness This is a 71-year-old woman who has a history of diabetes mellitus, diastolic congestive heart failure, morbid obesity and atrial flutter. She presented on following a fall and was found to be in atrial flutter with a rapid heart rate. She was started on intravenous diltiazem, started on Xarelto and remains on oral diltiazem and Xarelto. It seems that she is not generally very aware of her rhythm, she did not have palpitations but presented with weakness to the emergency room on 10/19/2016 and was observed to be in atrial flutter with a controlled heart rate as well as having pneumonia. She also had hyperkalemia and renal insufficiency. I can't tell by symptoms have much time she spends in atrial fibrillation/flutter, all the electrocardiograms that I reviewed here look like atrial flutter with irregular heart rate which is generally interpreted as sinus rhythm but on review I believe represents atrial flutter. It is possible that she is always in atrial flutter and just has some differences in heart rate. On exam her rhythm is regular which may be confusing as well (since her flutter is generally well-controlled and the ventricular response is regular). At the time of my evaluation she is feeling relatively well. Her main complaint is that no one is telling her anything. Past Medical/Surgical History Medical Problems: (1) Acquired lymphedema Status: Chronic (2) Atrial flutter Status: Chronic (3) CHF exacerbation Status: Resolved (4) Diab W Oth Coma, Type I [Juvenile Type], Uncontrolled Status: Chronic (5) Diabetes mellitus type 2, uncontrolled Status: Chronic (6) Endometrial cancer Status: Resolved (7) Epistaxis Status: Resolved (8) Hypertension Nos Status: Chronic (9) Hypothyroidism Status: Chronic (10) Morbid obesity Status: Chronic (11) Obesity Status: Chronic (12) Sciatica Status: Chronic Family History FH: Alzheimers disease Social History Smoking Status: Never Smoker History of Alcohol Use: No Review of Systems Constitutional: + problem reported (weakness), No fever, No weakness, No weight loss Respiratory: No cough, No dyspnea on exertion, No shortness of breath, No wheezing Cardiac: No PND, No chest pain, No edema, No orthopnea, No palpitations Abdomen: No GI bleeding, No diarrhea, No nausea, No pain, No vomiting Female : No problem reported Neurologic: No balance problems, No numbness/tingling, No paralysis, No weakness Heme: No abnormal bleeding/bruising, No clotting problems Endo: No fatigue Skin: No problem reported All Other Systems: Reviewed and Negative Allergies Coded Allergies: Mineral Oil (Verified Allergy, Intermediate, LEGS SWELL, 10/18/16) Penicillins (Verified Allergy, Intermediate, HIVES, 10/18/16) Petrolatum (Verified Allergy, Intermediate, LEGS SWELL, 10/18/16) Metronidazole (Unverified Allergy, Unknown, NAUSEA, 10/18/16) Uncoded Allergies: FLAVONOIDS (Allergy, Unknown, ., 05/17/16) Medications Current Inpatient Medications Medications (Trade) Dose Ordered Sig/Johnnie Route Start Time Stop Time Status Last Admin Dose Admin Allopurinol (Zyloprim Tab) 100 mg DAILY PO 10/20/16 09:00 11/19/16 08:59 10/20/16 07:58 100 MG Alprazolam (Xanax Tab) 0.5 mg BID PRN PO 10/19/16 22:15 11/18/16 22:14 Atorvastatin Calcium (Lipitor Tab) 40 mg QAM PO 10/20/16 09:00 11/19/16 08:59 10/20/16 08:01 40 MG Fluticasone Propionate (Flovent Hfa 110MCG Inhaler) 2 puffs BID INH 10/20/16 09:00 11/19/16 08:59 10/20/16 07:55 2 PUFFS Hydroxyzine HCl (Vistaril Tab) 25 mg Q8 PRN PO 10/19/16 22:15 11/18/16 22:14 Levothyroxine Sodium (Synthroid Tab) 50 mcg DAILYBB PO 10/20/16 06:00 11/19/16 05:59 10/20/16 05:50 50 MCG Lisinopril (Zestril Tab) 10 mg DAILY PO 10/20/16 09:00 11/19/16 08:59 10/20/16 07:57 10 MG Magnesium Oxide (Mag-Ox Tab) 400 mg DAILY PO 10/20/16 09:00 11/19/16 08:59 10/20/16 07:59 400 MG Rivaroxaban (Xarelto Tab) 20 mg DAILY@1700 PO 10/20/16 17:00 11/19/16 16:59 Sertraline HCl (Zoloft Tab) 50 mg DAILY PO 10/20/16 09:00 11/19/16 08:59 10/20/16 08:01 50 MG Cholecalciferol (Vitamin D Tab) 2,000 inter.unit DAILY PO 10/20/16 09:00 11/19/16 08:59 10/20/16 07:57 2,000 INTER.UNIT Diltiazem HCl (Cardizem Cd Cap) 240 mg QAM PO 10/20/16 09:00 11/19/16 08:59 10/20/16 08:00 240 MG Metoprolol Succinate 100 mg 100 mg QAM PO 10/20/16 09:00 11/19/16 08:59 10/20/16 08:01 100 MG Sodium Chloride (Nss 1000ml) 1,000 ml @ 80 mls/hr [id number] ONCE IV 10/19/16 22:15 10/20/16 10:44 10/19/16 23:41 80 MLS/HR Acetaminophen (Tylenol Tab) 650 mg Q4H PRN PO 10/19/16 22:15 11/18/16 22:14 Al Hydrox/Mg Hydrox/Simethicone (Maalox Max Susp) 15 ml Q4H PRN PO 10/19/16 22:15 11/18/16 22:14 Magnesium Hydroxide (Milk Of Magnesia Susp) 30 ml Q12H PRN PO 10/19/16 22:15 11/18/16 22:14 Ondansetron HCl (Zofran Inj) 4 mg Q6H PRN IV 10/19/16 22:15 11/18/16 22:14 Morphine Sulfate (MoRPHine SULFATE INJ) 2 mg Q30M PRN IV 10/19/16 22:15 11/02/16 22:14 Polyethylene (Miralax Powder Packet) 17 gm DAILY PRN PO 10/19/16 22:15 11/18/16 22:14 Insulin Aspart (novoLOG ASPART) SLIDING SCALE G... ACHS SC 10/20/16 07:00 11/19/16 06:59 Glucose (Glucose 40% Gel) 15-30 GRAMS 15 GRAMS... UD PRN PO 10/20/16 00:30 11/19/16 00:29 Glucose (Glucose Chew Tab) 4-8 Tablets 4 Tabl... UD PRN PO 10/20/16 00:30 11/19/16 00:29 Dextrose (Dextrose 50% 50ML Syringe) 25-50ML OF 50% DW IV FOR... UD PRN IV 10/20/16 00:30 11/19/16 00:29 Glucagon 1 mg 1 mg UD PRN SQ 10/20/16 00:30 11/19/16 00:29 Levofloxacin/Prmx (Levaquin / D5W/ Premixed D5W) 150 ml @ 100 mls/hr Q24H IV 10/20/16 22:00 10/26/16 21:59 Albuterol Sulfate (Ventolin 0.083% 2.5MG/3ML Neb) 2.5 mg Q4H PRN INH 10/20/16 01:45 11/19/16 01:44 Albuterol/ Ipratropium (Duoneb) 3 ml Q6R INH 10/20/16 09:00 11/19/16 08:59 10/20/16 07:05 3 ML Levofloxacin (Consult) 1 ea UD PRN N/A 10/20/16 07:00 11/19/16 06:59 Physical Exam Vital Signs Past 12 Hours Date Time Temp Pulse Resp B/P Pulse Ox O2 Delivery O2 Flow Rate FiO2 10/20/16 08:00 Nasal Cannula 3.0 10/20/16 07:41 36.4 95 20 136/81 94 4.0 10/20/16 07:05 94 16 96 Nasal Cannula 3.0 10/20/16 04:00 36.4 81 20 155/75 97 Nasal Cannula 3.0 10/20/16 04:00 Nasal Cannula 3.0 10/20/16 00:02 Nasal Cannula 3.0 10/20/16 00:00 74 10/19/16 22:00 72 30 93 Nasal Cannula 3.0 Constitutional: General Apperance: obese Level of Distress: NAD Psychiatric: Mental Status: active & alert Head: normocephalic Eyes: EOM: EOMI ENMT: normal ENT inspection, hearing grossly normal Neck: supple, no masses Lungs: Respiratory effort: no dyspnea, good air movement Auscultation: breath sounds normal, no wheezing Cardiovascular: Heart Auscultation: RRR, no murmurs, no rubs, no gallops Peripheral Pulses: Bruits: none appreciated Abdomen: Bowel Sounds: normal Inspection & Palpation: soft, no tenderness, guarding & rebound, no masses Musculoskeletal: normal strength (5/5 throughout) Extremities: no edema Neurologic: Cranial Nerves: grossly intact Sensation: grossly intact Data Laboratory Results: Last 24 Hours Test 10/19/16 20:10 10/19/16 20:19 10/19/16 23:36 10/20/16 01:55 White Blood Count 7.44 K/uL Red Blood Count 4.56 M/uL Hemoglobin 13.2 g/dL Hematocrit 42.9 % Mean Corpuscular Volume 94.1 fL Mean Corpuscular Hemoglobin 28.9 pg Mean Corpuscular Hemoglobin Concent 30.8 g/dl Platelet Count 174 K/uL Mean Platelet Volume 9.6 fL Neutrophils (%) (Auto) 76.3 % Lymphocytes (%) (Auto) 15.1 % Monocytes (%) (Auto) 6.3 % Eosinophils (%) (Auto) 1.2 % Basophils (%) (Auto) 0.7 % Neutrophils # (Auto) 5.68 K/uL Lymphocytes # (Auto) 1.12 K/uL Monocytes # (Auto) 0.47 K/uL Eosinophils # (Auto) 0.09 K/uL Basophils # (Auto) 0.05 K/uL RDW Standard Deviation 61.9 fL RDW Coefficient of Variation 18.1 % Immature Granulocyte % (Auto) 0.4 % Immature Granulocyte # (Auto) 0.03 K/uL Prothrombin Time 11.6 SECONDS Prothromb Time International Ratio 1.1 Activated Partial Thromboplast Time 27.3 SECONDS Partial Thromboplastin Ratio 1.1 Sodium Level 140 mmol/L 139 mmol/L Potassium Level 5.9 mmol/L 5.4 mmol/L Chloride Level 100 mmol/L 100 mmol/L Carbon Dioxide Level 34 mmol/L 35 mmol/L Anion Gap 6.0 mmol/L 4.0 mmol/L Blood Urea Nitrogen 38 mg/dl 39 mg/dl Creatinine 1.40 mg/dl 1.40 mg/dl Est Creatinine Clear Calc Drug Dose 53.4 ml/min 53.4 ml/min Estimated GFR () 43.4 43.4 Estimated GFR (Non- 37.4 37.4 BUN/Creatinine Ratio 26.9 28.2 Random Glucose 159 mg/dl 208 mg/dl Calcium Level 8.7 mg/dl 8.6 mg/dl Magnesium Level 2.4 mg/dl Total Bilirubin 0.6 mg/dl Direct Bilirubin 0.2 mg/dl Aspartate Amino Transf (AST/SGOT) 46 U/L Alanine Aminotransferase (ALT/SGPT) 61 U/L Alkaline Phosphatase 152 U/L Total Protein 7.3 gm/dl Albumin 3.3 gm/dl Bedside Troponin I 0.010 ng/ml Bedside Glucose 145 mg/dl Troponin I 0.027 ng/ml Test 10/20/16 06:32 10/20/16 08:19 Bedside Glucose 151 mg/dl White Blood Count 6.58 K/uL Red Blood Count 4.39 M/uL Hemoglobin 12.4 g/dL Hematocrit 41.2 % Mean Corpuscular Volume 93.8 fL Mean Corpuscular Hemoglobin 28.2 pg Mean Corpuscular Hemoglobin Concent 30.1 g/dl RDW Standard Deviation 62.2 fL RDW Coefficient of Variation 18.2 % Platelet Count 165 K/uL Mean Platelet Volume 9.8 fL Sodium Level 139 mmol/L Potassium Level 5.2 mmol/L Chloride Level 100 mmol/L Carbon Dioxide Level 33 mmol/L Anion Gap 6.0 mmol/L Blood Urea Nitrogen 38 mg/dl Creatinine 1.30 mg/dl Est Creatinine Clear Calc Drug Dose 56.7 ml/min Estimated GFR () 47.5 Estimated GFR (Non- 41.0 BUN/Creatinine Ratio 28.9 Random Glucose 191 mg/dl Calcium Level 8.4 mg/dl Phosphorus Level 3.6 mg/dl Magnesium Level 2.4 mg/dl Troponin I < 0.015 ng/ml Imaging: Chest x-ray shows a right basilar infiltrate. Due to her size is difficult to assess heart failure. EKG: Atrial flutter with a controlled ventricular rate Telemetry reviewed: Although not always interpreted that way I believe her rhythm is atrial flutter throughout with a regular ventricular response often. Assessment & Plan #1. Atrial flutter: I believe she is likely in this rhythm all of the time but I can't be sure of that, physical exam would be misleading and even her electrocardiograms are often read as sinus rhythm. In any case the rate has been well controlled here and I would continue her current rate controlling strategy. She should remain on Xarelto for stroke prevention. As an outpatient senior living monitoring could be considered to assess frequency and duration of her atrial arrhythmia but it may be difficult to interpret and it would not change therapy and therefore may not be necessary. #2. Diastolic dysfunction: She probably has diastolic dysfunction, it is very difficult to assess her fluid status due to her size. Based on her numbers I believe she probably is volume depleted and agree with gentle hydration. Thank you for allowing me to participate in her care.
--- NOTE | 2016-10-20 11:42 | Hospitalist Progress Note ---
Hospitalist Progress Note Date of Service Oct 20, 2016. Subjective Pt evaluation today including: conversation w/ patient, conversation w/ family , physical exam, chart review, lab review, review of studies, conversation w/ consultant rn, review of inpatient medication list Patient state she feels much better than on admission States weakness is improved Denies any chest pain, admits to mild SOB Constitutional: + fatigue, + weakness, No fever Eyes: No worsening of vision ENT: No hearing loss Respiratory: + shortness of breath, No cough Cardiovascular: No chest pain, No edema Abdomen: No constipation, No pain, No vomiting Musculoskeletal: No joint pain Female : No dysuria, No hematuria Neurologic: No memory loss Psychiatric: No depression symptoms Heme: No abnormal bleeding/bruising Endo: + fatigue Skin: No rash Medications Current Inpatient Medications Medications (Trade) Dose Ordered Sig/Johnnie Route Start Time Stop Time Status Last Admin Dose Admin Allopurinol (Zyloprim Tab) 100 mg DAILY PO 10/20/16 09:00 11/19/16 08:59 10/20/16 07:58 100 MG Alprazolam (Xanax Tab) 0.5 mg BID PRN PO 10/19/16 22:15 11/18/16 22:14 Atorvastatin Calcium (Lipitor Tab) 40 mg QAM PO 10/20/16 09:00 11/19/16 08:59 10/20/16 08:01 40 MG Fluticasone Propionate (Flovent Hfa 110MCG Inhaler) 2 puffs BID INH 10/20/16 09:00 11/19/16 08:59 10/20/16 07:55 2 PUFFS Hydroxyzine HCl (Vistaril Tab) 25 mg Q8 PRN PO 10/19/16 22:15 11/18/16 22:14 Levothyroxine Sodium (Synthroid Tab) 50 mcg DAILYBB PO 10/20/16 06:00 11/19/16 05:59 10/20/16 05:50 50 MCG Lisinopril (Zestril Tab) 10 mg DAILY PO 10/20/16 09:00 11/19/16 08:59 10/20/16 07:57 10 MG Magnesium Oxide (Mag-Ox Tab) 400 mg DAILY PO 10/20/16 09:00 11/19/16 08:59 10/20/16 07:59 400 MG Rivaroxaban (Xarelto Tab) 20 mg DAILY@1700 PO 10/20/16 17:00 11/19/16 16:59 Sertraline HCl (Zoloft Tab) 50 mg DAILY PO 10/20/16 09:00 11/19/16 08:59 10/20/16 08:01 50 MG Cholecalciferol (Vitamin D Tab) 2,000 inter.unit DAILY PO 10/20/16 09:00 11/19/16 08:59 10/20/16 07:57 2,000 INTER.UNIT Diltiazem HCl (Cardizem Cd Cap) 240 mg QAM PO 10/20/16 09:00 11/19/16 08:59 10/20/16 08:00 240 MG Metoprolol Succinate (Toprol Xl Tab) 100 mg QAM PO 10/20/16 09:00 11/19/16 08:59 10/20/16 08:01 100 MG Acetaminophen (Tylenol Tab) 650 mg Q4H PRN PO 10/19/16 22:15 11/18/16 22:14 Al Hydrox/Mg Hydrox/Simethicone (Maalox Max Susp) 15 ml Q4H PRN PO 10/19/16 22:15 11/18/16 22:14 Magnesium Hydroxide (Milk Of Magnesia Susp) 30 ml Q12H PRN PO 10/19/16 22:15 11/18/16 22:14 Ondansetron HCl (Zofran Inj) 4 mg Q6H PRN IV 10/19/16 22:15 11/18/16 22:14 Morphine Sulfate (MoRPHine SULFATE INJ) 2 mg Q30M PRN IV 10/19/16 22:15 11/02/16 22:14 Polyethylene (Miralax Powder Packet) 17 gm DAILY PRN PO 10/19/16 22:15 11/18/16 22:14 Insulin Aspart (novoLOG ASPART) SLIDING SCALE G... ACHS SC 10/20/16 07:00 11/19/16 06:59 10/20/16 11:25 2 UNITS Glucose (Glucose 40% Gel) 15-30 GRAMS 15 GRAMS... UD PRN PO 10/20/16 00:30 11/19/16 00:29 Glucose (Glucose Chew Tab) 4-8 Tablets 4 Tabl... UD PRN PO 10/20/16 00:30 11/19/16 00:29 Dextrose (Dextrose 50% 50ML Syringe) 25-50ML OF 50% DW IV FOR... UD PRN IV 10/20/16 00:30 11/19/16 00:29 Glucagon 1 mg 1 mg UD PRN SQ 10/20/16 00:30 11/19/16 00:29 Levofloxacin/Prmx (Levaquin / D5W/ Premixed D5W) 150 ml @ 100 mls/hr Q24H IV 10/20/16 22:00 10/26/16 21:59 Albuterol Sulfate (Ventolin 0.083% 2.5MG/3ML Neb) 2.5 mg Q4H PRN INH 10/20/16 01:45 11/19/16 01:44 Albuterol/ Ipratropium (Duoneb) 3 ml Q6R INH 10/20/16 09:00 11/19/16 08:59 10/20/16 07:05 3 ML Levofloxacin (Consult) 1 ea UD PRN N/A 10/20/16 07:00 11/19/16 06:59 Objective Vital Signs Date Time Temp Pulse Resp B/P Pulse Ox O2 Delivery O2 Flow Rate FiO2 10/20/16 08:00 Nasal Cannula 3.0 10/20/16 07:41 36.4 95 20 136/81 94 4.0 10/20/16 07:05 94 16 96 Nasal Cannula 3.0 10/20/16 04:00 36.4 81 20 155/75 97 Nasal Cannula 3.0 10/20/16 04:00 Nasal Cannula 3.0 10/20/16 00:02 Nasal Cannula 3.0 10/20/16 00:00 74 10/19/16 22:00 72 30 93 Nasal Cannula 3.0 10/19/16 21:30 72 32 115/67 97 Nasal Cannula 3.0 10/19/16 21:00 72 31 126/91 96 Nasal Cannula 3.0 10/19/16 20:34 94/49 10/19/16 20:30 71 19 98 Nasal Cannula 3.0 10/19/16 20:00 72 31 98 Nasal Cannula 3.0 10/19/16 19:41 72 10/19/16 19:36 36.7 75 22 98/46 96 Nasal Cannula 3.0 10/19/16 19:36 80 Room Air Physical Exam General Appearance: WD/WN, no apparent distress Eyes: normal inspection ENT: normal ENT inspection Neck: supple Respiratory/Chest: chest non-tender, + crackles, + rales Cardiovascular: regular rate, rhythm Abdomen: normal bowel sounds, non tender, soft Extremities: normal range of motion, non-tender 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, alert, oriented x 3 Skin: normal color, warm/dry, no rash Lymphatic: no adenopathy Laboratory Results Last 24 Hours Test 10/19/16 20:10 10/19/16 20:19 10/19/16 23:36 10/20/16 01:55 White Blood Count 7.44 K/uL Red Blood Count 4.56 M/uL Hemoglobin 13.2 g/dL Hematocrit 42.9 % Mean Corpuscular Volume 94.1 fL Mean Corpuscular Hemoglobin 28.9 pg Mean Corpuscular Hemoglobin Concent 30.8 g/dl Platelet Count 174 K/uL Mean Platelet Volume 9.6 fL Neutrophils (%) (Auto) 76.3 % Lymphocytes (%) (Auto) 15.1 % Monocytes (%) (Auto) 6.3 % Eosinophils (%) (Auto) 1.2 % Basophils (%) (Auto) 0.7 % Neutrophils # (Auto) 5.68 K/uL Lymphocytes # (Auto) 1.12 K/uL Monocytes # (Auto) 0.47 K/uL Eosinophils # (Auto) 0.09 K/uL Basophils # (Auto) 0.05 K/uL RDW Standard Deviation 61.9 fL RDW Coefficient of Variation 18.1 % Immature Granulocyte % (Auto) 0.4 % Immature Granulocyte # (Auto) 0.03 K/uL Prothrombin Time 11.6 SECONDS Prothromb Time International Ratio 1.1 Activated Partial Thromboplast Time 27.3 SECONDS Partial Thromboplastin Ratio 1.1 Sodium Level 140 mmol/L 139 mmol/L Potassium Level 5.9 mmol/L 5.4 mmol/L Chloride Level 100 mmol/L 100 mmol/L Carbon Dioxide Level 34 mmol/L 35 mmol/L Anion Gap 6.0 mmol/L 4.0 mmol/L Blood Urea Nitrogen 38 mg/dl 39 mg/dl Creatinine 1.40 mg/dl 1.40 mg/dl Est Creatinine Clear Calc Drug Dose 53.4 ml/min 53.4 ml/min Estimated GFR () 43.4 43.4 Estimated GFR (Non- 37.4 37.4 BUN/Creatinine Ratio 26.9 28.2 Random Glucose 159 mg/dl 208 mg/dl Calcium Level 8.7 mg/dl 8.6 mg/dl Magnesium Level 2.4 mg/dl Total Bilirubin 0.6 mg/dl Direct Bilirubin 0.2 mg/dl Aspartate Amino Transf (AST/SGOT) 46 U/L Alanine Aminotransferase (ALT/SGPT) 61 U/L Alkaline Phosphatase 152 U/L Total Protein 7.3 gm/dl Albumin 3.3 gm/dl Bedside Troponin I 0.010 ng/ml Bedside Glucose 145 mg/dl Troponin I 0.027 ng/ml Test 10/20/16 06:32 10/20/16 08:19 Bedside Glucose 151 mg/dl White Blood Count 6.58 K/uL Red Blood Count 4.39 M/uL Hemoglobin 12.4 g/dL Hematocrit 41.2 % Mean Corpuscular Volume 93.8 fL Mean Corpuscular Hemoglobin 28.2 pg Mean Corpuscular Hemoglobin Concent 30.1 g/dl RDW Standard Deviation 62.2 fL RDW Coefficient of Variation 18.2 % Platelet Count 165 K/uL Mean Platelet Volume 9.8 fL Sodium Level 139 mmol/L Potassium Level 5.2 mmol/L Chloride Level 100 mmol/L Carbon Dioxide Level 33 mmol/L Anion Gap 6.0 mmol/L Blood Urea Nitrogen 38 mg/dl Creatinine 1.30 mg/dl Est Creatinine Clear Calc Drug Dose 56.7 ml/min Estimated GFR () 47.5 Estimated GFR (Non- 41.0 BUN/Creatinine Ratio 28.9 Random Glucose 191 mg/dl Calcium Level 8.4 mg/dl Phosphorus Level 3.6 mg/dl Magnesium Level 2.4 mg/dl Troponin I < 0.015 ng/ml Hepatitis C Antibody Screen NEG Assessment and Plan 71 y/o F Hx diastolic CHF, morbid obesity, DM, PAF presenting with significant weakness which has persisted since waking up this AM. She denies excessive SOB , denies fevers, dysuria, N/V/D. She denies CP or diaphoresis. The pt underwent a facial skin biopsy one day prior which is not currently bleeding but may have bled excessively as she is on Xarelto regularly. Initial labs revealed acute renal impairment and hyperkalemia. CXR is consistent with acute RLL PNM. RLL PNA - continue Levaquin - check CBC in am - incentive spirometry ERVIN - continue IVF - check BMP Hyperkalemia - K+ 5.2/monitor - check BMP in am Aflutter - continue diltiazem - continue anticoagulation - appreciate Cariodlogy input DMII - SSI Diastolic CHF - compensated - hold IVF lasix as I suspect patient is Weakness -mostly likely multi factorial due to PNM, dehydration - PT/OT consult PPx - xarelto Full Code
[2016-10-20] MEDS ORDERED: NURSING VERBAL MED ORDER ONE (12:00)
[2016-10-20] MEDS: RIVAROXABAN 10 MG TAB PO SCH (16:10)
[2016-10-20] MEDS: LEVOFLOXACIN / D5W 750 MG in PREMIXED IN D5W 150 ML IV SCH (21:22)
[2016-10-21] VITALS (11 sets, daily range): BP systolic 95–132; BP diastolic 62–80; PULSE 69–89; TEMP 36.6–37; O2SAT 92–99
[2016-10-21] MEDS: ALBUT/IPRATROP 3MG/0.5MG NEB 3 ML VIAL INH SCH ×4 (02:02→18:45)
[2016-10-21] MEDS: LEVOTHYROXINE 50 MCG TAB PO SCH (05:28)
[2016-10-21] MEDS: INSULIN ASPART 100 UNITS/ML 3 ML PEN SC SCH ×4 (07:05→20:36)
[2016-10-21 07:26] LABS: BUN/CREATININE RATIO 30.6 (10-20); CALCIUM 8.1 mg/dl (8.5-10.1); CREATININE 1.4 mg/dl (0.60-1.20); POTASSIUM 5.6 mmol/L (3.5-5.1)
[2016-10-21] MEDS ORDERED: SODIUM POLYST. SULF SUSP 15G/60ML PO STA (08:03)
[2016-10-21] MEDS: SERTRALINE HCL 50 MG TAB PO SCH (08:10)
[2016-10-21] MEDS: METOPROLOL SUCC 50MG EXT REL TAB PO SCH (08:10)
[2016-10-21] MEDS: ATORVASTATIN 40 MG TAB PO SCH (08:11)
[2016-10-21] MEDS: MAGNESIUM OXIDE 400 MG TAB PO SCH (08:11)
[2016-10-21] MEDS: ALLOPURINOL 100 MG TAB PO SCH (08:11)
[2016-10-21] MEDS: LISINOPRIL 10 MG TAB PO SCH (08:12)
[2016-10-21] MEDS: CHOLECALCIFEROL 1000 INTER.UNIT TAB PO SCH (08:12)
[2016-10-21] MEDS: DILTIAZEM HCL 240 MG CAPCR PO SCH (08:12)
[2016-10-21] MEDS: FLUTICASONE HFA 110MCG INHALER INH SCH ×2 (08:13→20:35)
--- NOTE | 2016-10-21 08:37 | Cardiology Follow-Up ---
Subjective Date of Service: Oct 21, 2016. Pt evaluation today including: conversation w/ patient, conversation w/ family , physical exam, lab review, review of studies, review of inpatient medication list History of Present Illness This is a 71-year-old woman who has a history of diabetes mellitus, diastolic congestive heart failure, morbid obesity and atrial flutter. She presented on following a fall and was found to be in atrial flutter with a rapid heart rate. She was started on intravenous diltiazem, started on Xarelto and remains on oral diltiazem and Xarelto. It seems that she is not generally very aware of her rhythm, she did not have palpitations but presented with weakness to the emergency room on 10/19/2016 and was observed to be in atrial flutter with a controlled heart rate as well as having pneumonia. She also had hyperkalemia and renal insufficiency. I can't tell by symptoms have much time she spends in atrial fibrillation/flutter, all the electrocardiograms that I reviewed here look like atrial flutter with irregular heart rate which is generally interpreted as sinus rhythm but on review I believe represents atrial flutter. It is possible that she is always in atrial flutter and just has some differences in heart rate. On exam her rhythm is regular which may be confusing as well (since her flutter is generally well-controlled and the ventricular response is regular). Today she has no specific complaints. She is not very communicative. She does not of palpitations or chest discomfort. She is out of bed and chair today. Social History Smoking Status: Never Smoker History of Alcohol Use: No Review of Systems Respiratory: No cough, No shortness of breath Cardiac: No chest pain, No edema Medications Cardiovascular; Item Value Date Time Rivaroxaban 20 mg 10/20/16 1700 (Xarelto Tab) DAILY@1700/PO 10/20/16 1610 Atorvastatin 40 mg 10/20/16 0900 Calcium QAM/PO 10/21/16 0811 (Lipitor Tab) Lisinopril 10 mg 10/20/16 0900 (Zestril Tab) DAILY/PO 10/21/16 0812 Diltiazem HCl 240 mg 10/20/16 0900 (Cardizem Cd Cap) QAM/PO 10/21/16 0812 Objective Vital Signs Past 12 Hours Date Time Temp Pulse Resp B/P Pulse Ox O2 Delivery O2 Flow Rate FiO2 10/21/16 07:14 37.0 78 20 101/65 93 Nasal Cannula 3.0 10/21/16 06:58 85 16 93 Nasal Cannula 2.0 10/21/16 04:38 36.7 89 22 132/75 95 2.0 10/21/16 04:00 96 Nasal Cannula 3.0 10/21/16 02:02 80 16 96 Nasal Cannula 4.0 10/20/16 23:59 Nasal Cannula 4.0 10/20/16 23:24 37.3 90 20 139/80 93 Nasal Cannula 4.0 Last Recorded Weight-Kilograms: 154.500 Intake & Output 8-Hour Column 10/20/16 10/21/16 10/21/16 16:00 00:00 08:00 Intake Total 938 ml 938 ml 600 ml Output Total 400 ml 300 ml Balance 538 ml 638 ml 600 ml 24-Hour Column 10/21/16 08:00 Intake Total 2476 ml Output Total 700 ml Balance 1776 ml Physical Exam Constitutional: General Apperance: obese Level of Distress: NAD Lungs: Respiratory effort: no dyspnea, good air movement Auscultation: breath sounds normal, no wheezing Cardiovascular: Heart Auscultation: RRR, no murmurs, no rubs, no gallops Peripheral Pulses: Bruits: none appreciated Extremities: no edema Data Laboratory Results: Last 24 Hours Test 10/20/16 08:19 10/20/16 10:33 10/20/16 16:24 10/20/16 21:15 White Blood Count 6.58 K/uL Red Blood Count 4.39 M/uL Hemoglobin 12.4 g/dL Hematocrit 41.2 % Mean Corpuscular Volume 93.8 fL Mean Corpuscular Hemoglobin 28.2 pg Mean Corpuscular Hemoglobin Concent 30.1 g/dl RDW Standard Deviation 62.2 fL RDW Coefficient of Variation 18.2 % Platelet Count 165 K/uL Mean Platelet Volume 9.8 fL Sodium Level 139 mmol/L Potassium Level 5.2 mmol/L Chloride Level 100 mmol/L Carbon Dioxide Level 33 mmol/L Anion Gap 6.0 mmol/L Blood Urea Nitrogen 38 mg/dl Creatinine 1.30 mg/dl Est Creatinine Clear Calc Drug Dose 56.7 ml/min Estimated GFR () 47.5 Estimated GFR (Non- 41.0 BUN/Creatinine Ratio 28.9 Random Glucose 191 mg/dl Calcium Level 8.4 mg/dl Phosphorus Level 3.6 mg/dl Magnesium Level 2.4 mg/dl Troponin I < 0.015 ng/ml Hepatitis C Antibody Screen NEG Bedside Glucose 204 mg/dl 199 mg/dl 291 mg/dl Test 10/21/16 06:13 10/21/16 06:30 Sodium Level 137 mmol/L Potassium Level 5.6 mmol/L Chloride Level 99 mmol/L Carbon Dioxide Level 31 mmol/L Anion Gap 7.0 mmol/L Blood Urea Nitrogen 43 mg/dl Creatinine 1.40 mg/dl Est Creatinine Clear Calc Drug Dose 52.7 ml/min Estimated GFR () 43.4 Estimated GFR (Non- 37.4 BUN/Creatinine Ratio 30.6 Random Glucose 166 mg/dl Calcium Level 8.1 mg/dl Bedside Glucose 175 mg/dl Telemetry reviewed: I believe she remains in atrial flutter, sometimes with a regular rate, well-controlled heart rate. Assessment and Plan #1. Atrial flutter: I believe she is likely in this rhythm all of the time but I can't be sure of that, physical exam would be misleading and even her electrocardiograms are often read as sinus rhythm. In any case the rate has been well controlled here and I would continue her current rate controlling strategy. She should remain on Xarelto for stroke prevention. 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 #2. Diastolic dysfunction: She probably has diastolic dysfunction, it is very difficult to assess her fluid status due to her size. Based on her numbers I believe she probably is volume depleted and agree with gentle hydration. I believe her rhythm is stable here and has been as an outpatient, she probably does not need to remain on telemetry during her stay. Thank you for allowing me to participate in her care.
[2016-10-21] MEDS ORDERED: NURSING VERBAL MED ORDER ONE (08:45)
[2016-10-21] MEDS: SODIUM CHLORIDE 0.9% 1000ML 1,000 ML IV SCH ×2 (09:10→20:36)
[2016-10-21 13:18] LABS: BUN/CREATININE RATIO 27.3 (10-20); CALCIUM 7.7 mg/dl (8.5-10.1); CREATININE 1.6 mg/dl (0.60-1.20); POTASSIUM 5.7 mmol/L (3.5-5.1)
--- NOTE | 2016-10-21 14:34 | Hospitalist Progress Note ---
Hospitalist Progress Note Date of Service Oct 21, 2016. Subjective Pt evaluation today including: conversation w/ patient, physical exam, chart review, lab review, review of studies, review of inpatient medication list Patient had no acute issues overnight Denies any SOB, chest pain, fever Constitutional: No fever Eyes: No worsening of vision ENT: No hearing loss Respiratory: No cough Cardiovascular: No chest pain, No edema Abdomen: No pain, No vomiting Musculoskeletal: No joint pain Female : No dysuria Neurologic: No memory loss Medications Current Inpatient Medications Medications (Trade) Dose Ordered Sig/Johnnie Route Start Time Stop Time Status Last Admin Dose Admin Allopurinol (Zyloprim Tab) 100 mg DAILY PO 10/20/16 09:00 11/19/16 08:59 10/21/16 08:11 100 MG Alprazolam (Xanax Tab) 0.5 mg BID PRN PO 10/19/16 22:15 11/18/16 22:14 Atorvastatin Calcium (Lipitor Tab) 40 mg QAM PO 10/20/16 09:00 11/19/16 08:59 10/21/16 08:11 40 MG Fluticasone Propionate (Flovent Hfa 110MCG Inhaler) 2 puffs BID INH 10/20/16 09:00 11/19/16 08:59 10/21/16 08:13 2 PUFFS Hydroxyzine HCl (Vistaril Tab) 25 mg Q8 PRN PO 10/19/16 22:15 11/18/16 22:14 Levothyroxine Sodium (Synthroid Tab) 50 mcg DAILYBB PO 10/20/16 06:00 11/19/16 05:59 10/21/16 05:28 50 MCG Lisinopril (Zestril Tab) 10 mg DAILY PO 10/20/16 09:00 11/19/16 08:59 10/21/16 08:12 10 MG Magnesium Oxide (Mag-Ox Tab) 400 mg DAILY PO 10/20/16 09:00 11/19/16 08:59 10/21/16 08:11 400 MG Rivaroxaban (Xarelto Tab) 20 mg DAILY@1700 PO 10/20/16 17:00 11/19/16 16:59 10/20/16 16:10 20 MG Sertraline HCl (Zoloft Tab) 50 mg DAILY PO 10/20/16 09:00 11/19/16 08:59 10/21/16 08:10 50 MG Cholecalciferol (Vitamin D Tab) 2,000 inter.unit DAILY PO 10/20/16 09:00 11/19/16 08:59 10/21/16 08:12 2,000 INTER.UNIT Diltiazem HCl (Cardizem Cd Cap) 240 mg QAM PO 10/20/16 09:00 11/19/16 08:59 10/21/16 08:12 240 MG Metoprolol Succinate (Toprol Xl Tab) 100 mg QAM PO 10/20/16 09:00 11/19/16 08:59 10/21/16 08:10 100 MG Acetaminophen (Tylenol Tab) 650 mg Q4H PRN PO 10/19/16 22:15 11/18/16 22:14 Al Hydrox/Mg Hydrox/Simethicone (Maalox Max Susp) 15 ml Q4H PRN PO 10/19/16 22:15 11/18/16 22:14 Magnesium Hydroxide (Milk Of Magnesia Susp) 30 ml Q12H PRN PO 10/19/16 22:15 11/18/16 22:14 Ondansetron HCl (Zofran Inj) 4 mg Q6H PRN IV 10/19/16 22:15 11/18/16 22:14 10/20/16 16:09 4 MG Morphine Sulfate (MoRPHine SULFATE INJ) 2 mg Q30M PRN IV 10/19/16 22:15 11/02/16 22:14 Polyethylene (Miralax Powder Packet) 17 gm DAILY PRN PO 10/19/16 22:15 11/18/16 22:14 Insulin Aspart (novoLOG ASPART) SLIDING SCALE G... ACHS SC 10/20/16 07:00 11/19/16 06:59 10/21/16 11:55 2 UNITS Glucose (Glucose 40% Gel) 15-30 GRAMS 15 GRAMS... UD PRN PO 10/20/16 00:30 11/19/16 00:29 Glucose (Glucose Chew Tab) 4-8 Tablets 4 Tabl... UD PRN PO 10/20/16 00:30 11/19/16 00:29 Dextrose (Dextrose 50% 50ML Syringe) 25-50ML OF 50% DW IV FOR... UD PRN IV 10/20/16 00:30 11/19/16 00:29 Glucagon 1 mg 1 mg UD PRN SQ 10/20/16 00:30 11/19/16 00:29 Levofloxacin/Prmx (Levaquin / D5W/ Premixed D5W) 150 ml @ 100 mls/hr Q24H IV 10/20/16 22:00 10/26/16 21:59 10/20/16 21:22 100 MLS/HR Albuterol Sulfate (Ventolin 0.083% 2.5MG/3ML Neb) 2.5 mg Q4H PRN INH 10/20/16 01:45 11/19/16 01:44 Albuterol/ Ipratropium (Duoneb) 3 ml Q6R INH 10/20/16 09:00 11/19/16 08:59 10/21/16 14:00 3 ML Levofloxacin 1 ea 1 ea UD PRN N/A 10/20/16 07:00 11/19/16 06:59 Sodium Chloride (Nss 1000ml) 1,000 ml @ 80 mls/hr [id number] IV 10/21/16 09:00 11/20/16 08:59 10/21/16 09:10 80 MLS/HR Objective Vital Signs Date Time Temp Pulse Resp B/P Pulse Ox O2 Delivery O2 Flow Rate FiO2 10/21/16 12:00 Nasal Cannula 3.0 Humidified Oxygen 10/21/16 11:30 36.6 75 20 130/71 92 Nasal Cannula 3.0 10/21/16 08:00 Nasal Cannula 3.0 10/21/16 07:14 37.0 78 20 101/65 93 Nasal Cannula 3.0 10/21/16 06:58 85 16 93 Nasal Cannula 2.0 10/21/16 04:38 36.7 89 22 132/75 95 2.0 10/21/16 04:00 96 Nasal Cannula 3.0 10/21/16 02:02 80 16 96 Nasal Cannula 4.0 10/20/16 23:59 Nasal Cannula 4.0 10/20/16 23:24 37.3 90 20 139/80 93 Nasal Cannula 4.0 10/20/16 20:00 96 Nasal Cannula 3.0 10/20/16 19:02 36.5 71 22 139/81 96 Nasal Cannula 3.0 10/20/16 18:43 63 16 92 Nasal Cannula 3.0 10/20/16 16:00 Nasal Cannula 3.0 10/20/16 15:02 36.6 70 22 130/75 94 Nasal Cannula 3.0 Physical Exam General Appearance: WD/WN, no apparent distress, + obese Eyes: normal inspection ENT: normal ENT inspection Neck: supple Respiratory/Chest: chest non-tender, + pertinent finding (diminished breath sounds) Cardiovascular: regular rate, rhythm, no edema Abdomen: normal bowel sounds, non tender, soft Extremities: normal range of motion, non-tender 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, no motor/sensory deficits, alert Laboratory Results Last 24 Hours Test 10/20/16 16:24 10/20/16 21:15 10/21/16 06:13 10/21/16 06:30 Bedside Glucose 199 mg/dl 291 mg/dl 175 mg/dl Sodium Level 137 mmol/L Potassium Level 5.6 mmol/L Chloride Level 99 mmol/L Carbon Dioxide Level 31 mmol/L Anion Gap 7.0 mmol/L Blood Urea Nitrogen 43 mg/dl Creatinine 1.40 mg/dl Est Creatinine Clear Calc Drug Dose 52.7 ml/min Estimated GFR () 43.4 Estimated GFR (Non- 37.4 BUN/Creatinine Ratio 30.6 Random Glucose 166 mg/dl Calcium Level 8.1 mg/dl Test 10/21/16 11:29 10/21/16 12:40 Bedside Glucose 217 mg/dl Sodium Level 135 mmol/L Potassium Level 5.7 mmol/L Chloride Level 99 mmol/L Carbon Dioxide Level 33 mmol/L Anion Gap 3.0 mmol/L Blood Urea Nitrogen 44 mg/dl Creatinine 1.60 mg/dl Est Creatinine Clear Calc Drug Dose 46.1 ml/min Estimated GFR () 36.9 Estimated GFR (Non- 31.9 BUN/Creatinine Ratio 27.3 Random Glucose 220 mg/dl Calcium Level 7.7 mg/dl Assessment and Plan 71 y/o F Hx diastolic CHF, morbid obesity, DM, PAF presenting with significant weakness which has persisted since waking up this AM. She denies excessive SOB , denies fevers, dysuria, N/V/D. She denies CP or diaphoresis. The pt underwent a facial skin biopsy one day prior which is not currently bleeding but may have bled excessively as she is on Xarelto regularly. Initial labs revealed acute renal impairment and hyperkalemia. CXR is consistent with acute RLL PNM. RLL PNA - continue Levaquin - check CBC in am - incentive spirometry ERVIN -suspect 2/2 to CHF - d/c IVF - give IVF lasic - check BMP ECOLI UTI - cont levaquin Hyperkalemia - K+ 5.7/monitor -give insulin and and amp of D50 Aflutter - continue diltiazem - continue anticoagulation - appreciate Cardiology input DMII - SSI Diastolic CHF - hypervolemic - give IV lasix - b/p control/strict I/O's Weakness -mostly likely multi factorial due to PNA, dehydration - PT/OT consult PPx - xarelto Full Code
[2016-10-21] MEDS ORDERED: FUROSEMIDE 40 MG/4 ML VIAL IV STA (14:36)
[2016-10-21] MEDS ORDERED: DEXTROSE 50% 50 ML SYR IV ONE (14:45)
[2016-10-21] MEDS ORDERED: FUROSEMIDE INJ 40 MG in SYRINGE 0 ML IV ONE (15:00)
[2016-10-21] MEDS ORDERED: INSULIN HUMAN REGULAR PER UNIT 10 UNITS in SYRINGE 9.9 ML IV ONE (15:00)
[2016-10-21] MEDS: RIVAROXABAN 10 MG TAB PO SCH (16:34)
[2016-10-21] MEDS: LEVOFLOXACIN / D5W 750 MG in PREMIXED IN D5W 150 ML IV SCH (21:42)
[2016-10-22] VITALS (9 sets, daily range): BP systolic 104–120; BP diastolic 59–70; PULSE 70–91; TEMP 36.5–37.1; O2SAT 93–97
[2016-10-22] MEDS: ALBUT/IPRATROP 3MG/0.5MG NEB 3 ML VIAL INH SCH ×4 (02:27→19:14)
[2016-10-22] MEDS: LEVOTHYROXINE 50 MCG TAB PO SCH (06:03)
[2016-10-22 07:33] LABS: BASO % 0.4 %; BASO ABS # 0.03 K/uL (0-0.2); COMPLETE YES; EOS % 1.8 %; HEMATOCRIT 38.9 % (37-47); IG% 0.3 %; LYMPH % 14.2 %; LYMPH ABS # 0.96 K/uL (1.2-3.4); MEAN CELL VOLUME 92.8 fL (80-100); MEAN CORPUSCULAR HEMOGLOBIN 28.4 pg (25-34); MEAN CORPUSCULAR HGB CONC 30.6 g/dl (32-36); NEUT % 76.3 %; PLATELET COUNT 144 K/uL (130-400); RED BLOOD COUNT 4.19 M/uL (4.2-5.4); WHITE BLOOD COUNT 6.76 K/uL (4.8-10.8)
[2016-10-22 08:01] LABS: BUN/CREATININE RATIO 33.2 (10-20); CALCIUM 8.1 mg/dl (8.5-10.1); CREATININE 1.3 mg/dl (0.60-1.20)
--- NOTE | 2016-10-22 08:24 | Clinical Documentation Query ---
AUREA Qiu : CLINICAL DOCUMENTATION QUERIES QUERY 1 OF 2 Patient is a 71 year old female admitted with RLL pneumonia, ERVIN, and UTI. Documentation 10/21 notes "Diastolic CHF - hypervolemic - give IV lasix - b/p control/strict I/O's" IVF were discontinued at this time. Patient was treated with IV Lasix. Please clarify as clinically appropriate. Thank you. In your clinical opinion is this patient being managed for: ( x ) Acute on chronic diastolic congestive heart failure ( ) Other explanation of clinical findings (Please Explain) ( ) Unable to determine (Please Define) ( ) Need to Discuss ( ) Not Agree The medical record reflects the following clinical findings, treatment, and risk factors. Clinical Indicators: As above Treatment: IV Lasix, I/O, discontinuation of IVF Risk Factors: history of diastolic CHF, IVF administration QUERY 2 OF 2 Documentation includes the use of 3L/min of continuous supplemental oxygen therapy in the absence of primary lung disease. As able, please clarify the suspected etiology of supplemental oxygen necessity in your patient. Thank you. In your clinical opinion is this patient being managed for: ( x ) Chronic hypoxic respiratory failure secondary to Pickwickian syndrome ( ) Other explanation of clinical findings (Please Explain) ( ) Unable to determine (Please Define) ( ) Need to Discuss ( ) Not Agree The medical record reflects the following clinical findings, treatment, and risk factors. Clinical Indicators: As above Treatment: Supplemental oxygen Risk Factors: Obesity, possible obesity hypoventilation syndrome Please clarify and document your clinical opinion in the progress notes and discharge summary. Terms such as "probable", "suspected", "likely", "questionable", "possible", or "still to be ruled out" are acceptable. IF IN AGREEMENT, YOU MUST DOCUMENT ABOVE DIAGNOSTIC STATEMENT IN DAILY PROGRESS NOTES AND DISCHARGE SUMMARY. This document is not part of the patient's record. Thank You, Gregory Villalobos, RN [phone]
[2016-10-22] MEDS: INSULIN ASPART 100 UNITS/ML 3 ML PEN SC SCH ×4 (08:49→21:16)
[2016-10-22] MEDS: FLUTICASONE HFA 110MCG INHALER INH SCH ×2 (08:59→21:12)
[2016-10-22] MEDS: ALLOPURINOL 100 MG TAB PO SCH (08:59)
[2016-10-22] MEDS: ATORVASTATIN 40 MG TAB PO SCH (08:59)
[2016-10-22] MEDS: METOPROLOL SUCC 50MG EXT REL TAB PO SCH (09:00)
[2016-10-22] MEDS: SERTRALINE HCL 50 MG TAB PO SCH (09:00)
[2016-10-22] MEDS: DILTIAZEM HCL 240 MG CAPCR PO SCH (09:02)
[2016-10-22] MEDS: MAGNESIUM OXIDE 400 MG TAB PO SCH (09:02)
[2016-10-22] MEDS: LISINOPRIL 10 MG TAB PO SCH (09:02)
[2016-10-22] MEDS: CHOLECALCIFEROL 1000 INTER.UNIT TAB PO SCH (09:02)
[2016-10-22] MEDS: SODIUM CHLORIDE 0.9% 1000ML 1,000 ML IV SCH ×2 (09:13→22:15)
[2016-10-22] MEDS ORDERED: LEVOFLOXACIN 750 MG TAB PO ONE (11:33)
--- NOTE | 2016-10-22 11:53 | Progress Note ---
Subjective Date of Service: Oct 22, 2016. Subjective Pt evaluation today including: conversation w/ patient, conversation w/ family , physical exam, chart review, lab review, review of studies, review of inpatient medication list Patient seen and evaluated. No acute events overnight. Reports marked improvement in generalized weakness. at bedside states she is her normal self and complete difference from last night. He reports that she was more confused prior to admission. Utilizes mostly a cane at home but needed to use a walker prior to admission but was very unsteady on her feet. Continues to have a nonproductive cough. Potassium has been high a couple weeks ago but with repeat was normal. Today is the first lab that was WNL. -- Discussed Lisinopril and she states she has been on this for approx. 3 years - questionable contributor Problem List Medical Problems: (1) Abdominal pain, epigastric Status: Acute (2) Acute bronchitis Status: Acute (3) Bleeding Status: Acute (4) Generalized weakness Status: Acute (5) Pneumonia Status: Acute (6) Sinusitis Status: Acute Review of Systems Constitutional: No chills, No fever Respiratory: + cough, No shortness of breath, No sputum Cardiac: No chest pain, No palpitations Abdomen: No constipation, No diarrhea, No nausea, No pain, No vomiting Musculoskeletal: + swelling Female : No dysuria Skin: No rash Medications Current Inpatient Medications Medications (Trade) Dose Ordered Sig/Johnnie Route Start Time Stop Time Status Last Admin Dose Admin Allopurinol (Zyloprim Tab) 100 mg DAILY PO 10/20/16 09:00 11/19/16 08:59 10/22/16 08:59 100 MG Alprazolam (Xanax Tab) 0.5 mg BID PRN PO 10/19/16 22:15 11/18/16 22:14 Atorvastatin Calcium (Lipitor Tab) 40 mg QAM PO 10/20/16 09:00 11/19/16 08:59 10/22/16 08:59 40 MG Fluticasone Propionate (Flovent Hfa 110MCG Inhaler) 2 puffs BID INH 10/20/16 09:00 11/19/16 08:59 10/22/16 08:59 2 PUFFS Hydroxyzine HCl (Vistaril Tab) 25 mg Q8 PRN PO 10/19/16 22:15 11/18/16 22:14 Levothyroxine Sodium (Synthroid Tab) 50 mcg DAILYBB PO 10/20/16 06:00 11/19/16 05:59 10/22/16 06:03 50 MCG Lisinopril (Zestril Tab) 10 mg DAILY PO 10/20/16 09:00 11/19/16 08:59 Future Hold 10/21/16 08:12 10 MG Magnesium Oxide (Mag-Ox Tab) 400 mg DAILY PO 10/20/16 09:00 11/19/16 08:59 10/22/16 09:02 400 MG Rivaroxaban (Xarelto Tab) 20 mg DAILY@1700 PO 10/20/16 17:00 11/19/16 16:59 10/21/16 16:34 20 MG Sertraline HCl (Zoloft Tab) 50 mg DAILY PO 10/20/16 09:00 11/19/16 08:59 10/22/16 09:00 50 MG Cholecalciferol (Vitamin D Tab) 2,000 inter.unit DAILY PO 10/20/16 09:00 11/19/16 08:59 10/22/16 09:02 2,000 INTER.UNIT Diltiazem HCl (Cardizem Cd Cap) 240 mg QAM PO 10/20/16 09:00 11/19/16 08:59 10/22/16 09:02 240 MG Metoprolol Succinate (Toprol Xl Tab) 100 mg QAM PO 10/20/16 09:00 11/19/16 08:59 10/22/16 09:00 100 MG Acetaminophen (Tylenol Tab) 650 mg Q4H PRN PO 10/19/16 22:15 11/18/16 22:14 Al Hydrox/Mg Hydrox/Simethicone (Maalox Max Susp) 15 ml Q4H PRN PO 10/19/16 22:15 11/18/16 22:14 Magnesium Hydroxide (Milk Of Magnesia Susp) 30 ml Q12H PRN PO 10/19/16 22:15 11/18/16 22:14 Ondansetron HCl (Zofran Inj) 4 mg Q6H PRN IV 10/19/16 22:15 11/18/16 22:14 10/20/16 16:09 4 MG Morphine Sulfate (MoRPHine SULFATE INJ) 2 mg Q30M PRN IV 10/19/16 22:15 11/02/16 22:14 Polyethylene (Miralax Powder Packet) 17 gm DAILY PRN PO 10/19/16 22:15 11/18/16 22:14 Insulin Aspart (novoLOG ASPART) SLIDING SCALE G... ACHS SC 10/20/16 07:00 11/19/16 06:59 10/21/16 16:34 2 UNITS Glucose (Glucose 40% Gel) 15-30 GRAMS 15 GRAMS... UD PRN PO 10/20/16 00:30 11/19/16 00:29 Glucose (Glucose Chew Tab) 4-8 Tablets 4 Tabl... UD PRN PO 10/20/16 00:30 11/19/16 00:29 Dextrose (Dextrose 50% 50ML Syringe) 25-50ML OF 50% DW IV FOR... UD PRN IV 10/20/16 00:30 11/19/16 00:29 Glucagon 1 mg 1 mg UD PRN SQ 10/20/16 00:30 11/19/16 00:29 Levofloxacin/Prmx (Levaquin / D5W/ Premixed D5W) 150 ml @ 100 mls/hr Q24H IV 10/20/16 22:00 10/26/16 21:59 10/21/16 21:42 100 MLS/HR Albuterol Sulfate (Ventolin 0.083% 2.5MG/3ML Neb) 2.5 mg Q4H PRN INH 10/20/16 01:45 11/19/16 01:44 Albuterol/ Ipratropium (Duoneb) 3 ml Q6R INH 10/20/16 09:00 11/19/16 08:59 10/22/16 02:27 3 ML Levofloxacin 1 ea 1 ea UD PRN N/A 10/20/16 07:00 11/19/16 06:59 Sodium Chloride (Nss 1000ml) 1,000 ml @ 80 mls/hr [id number] IV 10/21/16 09:00 11/20/16 08:59 10/22/16 09:13 80 MLS/HR Objective Vital Signs Date Time Temp Pulse Resp B/P Pulse Ox O2 Delivery O2 Flow Rate FiO2 10/22/16 08:03 Room Air 10/22/16 07:35 36.7 86 20 117/68 97 Nasal Cannula 2.0 10/22/16 07:06 86 20 96 Nasal Cannula 3.0 10/22/16 02:27 82 20 95 Nasal Cannula 3.0 10/22/16 00:01 Nasal Cannula 3.0 10/22/16 00:00 37.1 91 18 104/59 95 3.0 10/21/16 19:04 36.9 73 22 95/62 99 Nasal Cannula 3.0 10/21/16 18:48 82 20 94 Nasal Cannula 3.0 10/21/16 16:53 36.8 69 20 94 4.0 10/21/16 16:13 36.8 69 20 109/65 94 Nasal Cannula 4.0 10/21/16 16:00 Nasal Cannula 3.0 10/21/16 14:00 69 20 93 Nasal Cannula 3.0 10/21/16 12:00 Nasal Cannula 3.0 Humidified Oxygen 10/21/16 11:30 36.6 75 20 130/71 92 Nasal Cannula 3.0 Physical Exam General Appearance: WD/WN, no apparent distress, + obese Eyes: sclerae normal ENT: hearing grossly normal Neck: supple, no JVD, trachea midline Respiratory/Chest: lungs clear, no respiratory distress, no accessory muscle use, + decreased breath sounds Cardiovascular: regular rate, rhythm, no gallop, no murmur Abdomen: normal bowel sounds, non tender, soft Extremities: + pertinent finding (chronic stasis dermatitis b/l) Neurologic/Psychiatric: alert, oriented x 3 Skin: normal color, warm/dry Laboratory Results Last 24 Hours Test 10/21/16 11:29 10/21/16 12:40 10/21/16 16:21 10/21/16 20:18 Bedside Glucose 217 mg/dl 198 mg/dl 146 mg/dl Sodium Level 135 mmol/L Potassium Level 5.7 mmol/L Chloride Level 99 mmol/L Carbon Dioxide Level 33 mmol/L Anion Gap 3.0 mmol/L Blood Urea Nitrogen 44 mg/dl Creatinine 1.60 mg/dl Est Creatinine Clear Calc Drug Dose 46.1 ml/min Estimated GFR () 36.9 Estimated GFR (Non- 31.9 BUN/Creatinine Ratio 27.3 Random Glucose 220 mg/dl Calcium Level 7.7 mg/dl Test 10/22/16 02:12 10/22/16 07:15 10/22/16 07:49 Bedside Glucose 144 mg/dl 140 mg/dl White Blood Count 6.76 K/uL Red Blood Count 4.19 M/uL Hemoglobin 11.9 g/dL Hematocrit 38.9 % Mean Corpuscular Volume 92.8 fL Mean Corpuscular Hemoglobin 28.4 pg Mean Corpuscular Hemoglobin Concent 30.6 g/dl Platelet Count 144 K/uL Mean Platelet Volume 9.0 fL Neutrophils (%) (Auto) 76.3 % Lymphocytes (%) (Auto) 14.2 % Monocytes (%) (Auto) 7.0 % Eosinophils (%) (Auto) 1.8 % Basophils (%) (Auto) 0.4 % Neutrophils # (Auto) 5.16 K/uL Lymphocytes # (Auto) 0.96 K/uL Monocytes # (Auto) 0.47 K/uL Eosinophils # (Auto) 0.12 K/uL Basophils # (Auto) 0.03 K/uL RDW Standard Deviation 59.3 fL RDW Coefficient of Variation 17.4 % Immature Granulocyte % (Auto) 0.3 % Immature Granulocyte # (Auto) 0.02 K/uL Sodium Level 137 mmol/L Potassium Level 5.0 mmol/L Chloride Level 100 mmol/L Carbon Dioxide Level 30 mmol/L Anion Gap 7.0 mmol/L Blood Urea Nitrogen 43 mg/dl Creatinine 1.30 mg/dl Est Creatinine Clear Calc Drug Dose 56.7 ml/min Estimated GFR () 47.5 Estimated GFR (Non- 41.0 BUN/Creatinine Ratio 33.2 Random Glucose 144 mg/dl Calcium Level 8.1 mg/dl Assessment and Plan 71 y/o F Hx diastolic CHF, morbid obesity, DM, PAF presenting with significant weakness which has persisted since waking up this AM. She denies excessive SOB , denies fevers, dysuria, N/V/D. She denies CP or diaphoresis. The pt underwent a facial skin biopsy one day prior which is not currently bleeding but may have bled excessively as she is on Xarelto regularly. Initial labs revealed acute renal impairment and hyperkalemia. CXR is consistent with acute RLL PNA. RLL Community Acquired PNA: - Levaquin 750 mg IV x 3 days will convert to Levaquin 750 mg po daily - DAY # 4 TOTAL ABX THERAPY - Duonebs QID and Ventolin PRN - Incentive Spirometry ERVIN 2/2 Diastolic CHF vs Dehydration: Cr Baseline 1.1 - Cr at 1.3 - Gentle hydration with NSS at 80 mL/hr - Trend BMP Pansensitive E. COLI UTI: - Levaquin 750 mg po daily Hyperkalemia: RESOLVED - Insulin with D50 amp (10/21) - Will hold Lisinopril at this time - Monitor with BMP A Flutter: Rate Controlled - Diltiazem 240 mg daily - Xarelto 20 mg daily - Cardiology following T2DM: - SSI - goal 120-160; correction factor 40 Chronic Diastolic CHF: - Continue to hold home Lasix - will continue gentle hydration today and evaluate in AM - Daily weights and I&Os Weakness: Multifactorial 2/2 PNA and Dehydration: IMPROVED - PT/OT consult - will get recommendations as patient reports marked improvement since last night DVT Prophylaxis: - Xarelto Code Status: - FULL RESUSCITATION Disposition: - PT/OT recommendations - pending recommendations - will convert to po Abx and possible D/C tomorrow
[2016-10-22] MEDS: RIVAROXABAN 10 MG TAB PO SCH (18:29)
[2016-10-22] MEDS ORDERED: LEVOFLOXACIN 750 MG TAB PO SCH (20:00)
[2016-10-23 02:30] VITALS: PULSE 86; O2SAT 95
[2016-10-23] MEDS: ALBUT/IPRATROP 3MG/0.5MG NEB 3 ML VIAL INH SCH ×2 (02:56→07:40)
[2016-10-23] MEDS: LEVOTHYROXINE 50 MCG TAB PO SCH (06:13)
[2016-10-23] MEDS: INSULIN ASPART 100 UNITS/ML 3 ML PEN SC SCH ×2 (06:30→11:40)
[2016-10-23 07:24] LABS: BASO % 0.5 %; BASO ABS # 0.03 K/uL (0-0.2); COMPLETE YES; HEMATOCRIT 40.1 % (37-47); IG% 0.3 %; LYMPH ABS # 0.82 K/uL (1.2-3.4); MEAN CELL VOLUME 91.8 fL (80-100); MEAN CORPUSCULAR HEMOGLOBIN 28.8 pg (25-34); MEAN CORPUSCULAR HGB CONC 31.4 g/dl (32-36); MEAN PLATELET VOLUME 9.6 fL (7.4-10.4); MONO % 9.9 %; NEUT % 73.3 %; PLATELET COUNT 148 K/uL (130-400); RED BLOOD COUNT 4.37 M/uL (4.2-5.4); WHITE BLOOD COUNT 5.87 K/uL (4.8-10.8)
[2016-10-23 07:40] VITALS: PULSE 84; O2SAT 94
[2016-10-23 07:44] LABS: BUN/CREATININE RATIO 31.8 (10-20); CALCIUM 8.1 mg/dl (8.5-10.1); CREATININE 1.1 mg/dl (0.60-1.20); MAGNESIUM 2.4 mg/dl (1.8-2.4); POTASSIUM 4.9 mmol/L (3.5-5.1)
[2016-10-23 07:49] VITALS: BP 119/72; PULSE 85; TEMP 36.4; O2SAT 96
--- NOTE | 2016-10-23 07:54 | Discharge Instructions ---
Discharge Instructions Admission Reason for Admission: Generalized Weakness, Pneumonia Discharge Discharge Diagnosis / Problem: Community Acquired Pneumonia and Urinary Tract Infection Discharge Goals Goal(s): Decrease discomfort, Improve function, Increase independence Activity Recommendations Activity Limitations: resume your previous activity . Instructions / Follow-Up Instructions / Follow-Up Weakness from Community Acquired Pneumonia and Urinary Tract Infection: - Continue Levaquin 750 mg daily for six more days with starting this medication today (10/23/16) - a prescription will be provided - This antibiotic is a good coverage for the bacteria that is growing in your urine - Please use your walking devices at home while recovering from this illness as you may still feel some weakness. Hyperkalemia - High Potassium - Your potassium in your blood has been high during admission. At this time it is normal. - You were on a medication called Lisinopril which can cause a person to have high levels of potassium in the blood. -- STOP TAKING THIS MEDICATION - We recommend that you follow up with your family doctor to have your potassium level check. -- They may want to restart this medication in the future - As well, you take a water pill called Lasix which can lower your potassium and therefore having your potassium checked in the next couple days would be beneficial -- A prescription for blood work will be given and the results given to your family doctor Follow-Up: - Please follow-up with your family doctor in 1 week and please get blood work completed in the next couple of days Current Hospital Diet Patient's current hospital diet: AHA Diet (Heart Healthy), Diabetes Type 2 Diet Discharge Diet Recommended Diet: AHA Diet (Heart Healthy), Diabetes Type 2 Diet Pending Studies Studies pending at discharge: no Laboratory Results Hemoglobin A1c Test 09/29/16 10:15 Range/Units Estimated Average Glucose 148 mg/dl Hemoglobin A1c 6.8 H 4.5-5.6 % Medical Emergencies . Who to Call and When: Medical Emergencies: If at any time you feel your situation is an emergency, please call 911 immediately. . Non-Emergent Contact Non-Emergency issues call your: Primary Care Provider Call Non-Emergent contact if: you have a fever, you have any medication questions . . "Provider Documentation" section prepared by Nevaeh Garcia. VTE Core Measure Inpt VTE Proph given/why not?: Other Anticoagulation
[2016-10-23 07:55] LABS: THYROID STIMULATING HORMONE 3.13 uIu/ml (0.300-4.500)
[2016-10-23] MEDS ORDERED: LVQ750 PO (08:13)
[2016-10-23] MEDS: ATORVASTATIN 40 MG TAB PO SCH (08:30)
[2016-10-23] MEDS: DILTIAZEM HCL 240 MG CAPCR PO SCH (08:30)
[2016-10-23] MEDS: METOPROLOL SUCC 50MG EXT REL TAB PO SCH (08:30)
[2016-10-23] MEDS: CHOLECALCIFEROL 1000 INTER.UNIT TAB PO SCH (08:30)
[2016-10-23] MEDS: MAGNESIUM OXIDE 400 MG TAB PO SCH (08:30)
[2016-10-23] MEDS: SERTRALINE HCL 50 MG TAB PO SCH (08:30)
[2016-10-23] MEDS: ALLOPURINOL 100 MG TAB PO SCH (08:30)
[2016-10-23] MEDS: FLUTICASONE HFA 110MCG INHALER INH SCH (08:31)
[2016-10-23 11:31] VITALS: BP 119/72; PULSE 85; TEMP 36.4; O2SAT 96
--- NOTE | 2016-10-23 13:36 | Discharge Summary ---
Discharge Summary Admission Date: Oct 19, 2016 at 22:18 Discharge Date: Oct 23, 2016 Discharge Disposition: Home Principal Diagnosis: Community Acquired Pneumonia and Pansensitive E. Coli Urinary Tract Infecti Problems/Secondary Diagnoses: 1. Chronic Diastolic CHF 2. Morbid Obesity 3. T2DM 4. Paroxysmal Atrial Flutter Immunizations: Have You Had Influenza Vaccine: Unknown Influenza Vaccine Date: Jul 25, 2012 History of Tetanus Vaccine?: Unknown History of Pneumococcal: Unknown History of Hepatitis B Vaccine: Unknown Procedures: 1. CHEST ONE VIEW PORTABLE CLINICAL HISTORY: weakness dyspnea COMPARISON STUDY: 12/04/2015 FINDINGS: Interval development of a right basilar parenchymal infiltrate. Superimposed component of mild congestive failure. Probable small right pleural effusion. IMPRESSION: Mild congestive failure with superimposed right basilar infiltrate/effusion. 2. HEAD CT NONCONTRAST CT DOSE: 691.05 mGy.cm HISTORY: Mental status change weakness, falls TECHNIQUE: Multiaxial CT images of the head were performed without the use of intravenous contrast. Comparison: 11/12/2013 Findings: The paranasal sinuses and mastoid air cells are clear. The calvarium and skull base are intact. The ventricles and sulci are within normal limits. There is no mass, hematoma, midline shift, or acute infarct. Impression: No acute intracranial abnormality. Consultations: 1. Cardiology 2. PT/OT Medication Reconciliation New Medications: Levofloxacin (Levofloxacin) 750 Mg Tab 750 MG PO DAILY for 6 Days, TAB Continued Medications: Albuterol Hfa (Ventolin Hfa) 200 Puffs/83170 Mcg Aers 2 PUFFS INH Q4 PRN for SOB/Wheezing, #1 INHALER Albuterol Sulf (Albuterol Sulfate) 2.5 Mg/3 Ml Nebu 1 UNIT PO Q4 PRN for SOB/Wheezing Allopurinol (Zyloprim) 100 Mg Tab 100 MG PO DAILY AT 1200, TAB Alprazolam (Xanax) 0.5 Mg Tab 0.5 MG PO BID PRN for Anxiety, TAB Atorvastatin (Lipitor) 40 Mg Tab 40 MG PO QAM, TAB Cholecalciferol (Vitamin D3) 2,000 Unit Tab 2000 INTER.UNIT PO DAILY, TAB 3 Refills Diltiazem Hcl Extended Release (Diltiazem Hcl) 240 Mg Cap 240 MG PO QAM Eflornithine Hcl (Vaniqa) 13.9 % Cre 1 APPLN TOP BID PRN for Hirsutism, GM APPLY AND GENTLY MASSAGE INTO AFFECTED AREA. Fluticasone Propionate (Flovent Hfa) 120 Puffs/40766 Mcg Aero 2 PUFFS INH BID for 7 Days, #1 INHALER 0 Refills Furosemide (Lasix) 40 Mg Tab 40 MG PO QAM, TAB TAKES 20MG IN ADDITION PRN Hydroxyzine Hcl (Atarax) 25 Mg Tab 25 MG PO Q8 PRN for Itching, TAB Insulin Lispro Protamine & Lis (Humalog Mix 75/25 Kwikpen) 1 Inj Inj 80 UNITS SC Q12 Levothyroxine Sodium (Levothyroxine Sodium) 50 Mcg Tab 50 MCG PO QAM Magnesium Oxide (Mag-Ox) 400 Mg Tab 400 MG PO DAILY AT NOON, TAB Metformin Hcl (Glucophage) 1,000 Mg Tab 1000 MG PO BID, TAB Metoprolol Succinate (Metoprolol Succinate ER) 100 Mg Tabcr 100 MG PO QAM Multiple Vitamins W/ Minerals (Centrum Silver Adult 50+) 1 Tab Tab 1 TAB PO QAM Oxygen (Oxygen) Gas 3 LITERS NA CONTINOUS USES NEEDED Rivaroxaban (Xarelto) 20 Mg Tab 20 MG PO QPM, TAB Sertraline HCl (Sertraline HCl) 50 Mg Tab 50 MG PO DAILY, #30 Triamcinolone Acet (Triamcinolone Acetonide) 45 Appln/15 Gm Cr 1 APPLN TOP PRN UD, #30 Discontinued Medications: Lisinopril (Zestril) 10 Mg Tab 10 MG PO DAILY AT 1200, TAB Discharge Exam Review of Systems: Constitutional: No chills, No fever, No weakness Eyes: No worsening of vision ENT: No nasal symptoms, No sore throat, No trouble swallowing Respiratory: + cough, + dyspnea on exertion, No dyspnea at rest, No shortness of breath, No sputum, No wheezing Cardiovascular: No chest pain, No palpitations Abdomen: No constipation, No diarrhea, No nausea, No pain, No vomiting Musculoskeletal: No calf pain Genitourinary - Female: No dysuria Endocrine: No fatigue Integumentary: No rash Physical Exam: General Appearance: WD/WN, no apparent distress, + obese Eyes: sclerae normal ENT: hearing grossly normal Neck: supple, no JVD, trachea midline Respiratory/Chest: lungs clear, no respiratory distress, no accessory muscle use, + decreased breath sounds (bases bilat) Cardiovascular: regular rate, rhythm, no gallop, no murmur Abdomen / GI: normal bowel sounds, non tender, soft Extremities: + pertinent finding (Chronic stasis dermatitis; large edematous lower extremities bilat) Neurologic/Psychiatric: alert, oriented x 3 Skin: normal color, warm/dry Hospital Course ADMISSION: 71 y/o F Hx diastolic CHF, morbid obesity, DM, PAF presenting with significant weakness which has persisted since waking up this AM. She denies excessive SOB, denies fevers, dysuria, N/V/D. She denies CP or diaphoresis. The pt underwent a facial skin biopsy one day prior which is not currently bleeding but may have bled excessively as she is on Xarelto regularly. Initial labs reveal acute renal impairment and hyperkalemia. CXR is consistent with acute RLL PNM. She uses 3L 02 continuously stating that this is due to her atrial flutter rather than any lung disease. HOSPITAL COURSE: Ms. Arellano presented to the hospital with complaints of generalized weakness that started acutely. It does not appear that patient is largely ambulatory at home and is relatively reliant on her for assistance with ADLs. He does report that prior to admission she needed to utilize her walker instead of her cane due to weakness and instability. He also noticed some acute changes of confusion and memory dysfunction. CXR suggested a RLL PNA and a pansensitive E. Coli urinary tract infection. She was started on Levaquin 750 mg IV x 3 days and was converted to Levaquin 750 mg daily with plans to continue to complete a 10 day antibiotic course. Upon admission she was noted to have ERVIN with presenting Cr of 1.4 that has resolved to what appears baseline of 1.1. Labs were also significant for hyperkalemia of 5.9 and was treated with insulin and an amp of D50. Currently potassium is at 4.9. Her Lisinopril was discontinued as this may have been contributing to the hyperkalemia and will defer reinstitution to her PCP. PT/OT evaluations were completed that initially recommended home services vs rehab however as weakness improved she does appear what is most likely her baseline. Patient is refusing further home services at this time. She does report feeling at her baseline in regards to generalized weakness. A non-productive cough remains and she does not have any urinary symptoms. She is alert and oriented and reports she is at her baseline mentation. All home medications, excluding Lisinopril, were continued without dosage adjustments or additions. She is afebrile, without leukocytosis, and without acute complaints. She is optimal for discharge home with Levaquin 750 mg po x 6 more days to finish 10 day course and instructions to have a BMP drawn in the next few days to be evaluated by her PCP. Total Time Spent: Greater than 30 minutes This includes examination of the patient, discharge planning, medication reconciliation, and communication with other providers. Discharge Instructions Please refer to the electronic Patient Visit Report (Discharge Instructions) for additional information. Additional Copies To Raymond Fierro M.D.
--- NOTE | 2016-10-25 17:56 | EDITING REQUIRED CODING QUERY ---
CODING QUERY Dear Dr. Yanez, To promote full compliance with coding requirements relating to patient care, provider participation is requested in all cases of manager of case uncertainty. Please assist us with the question(s) below: In responding to this query, please exercise your independent professional judgement. The fact that a question is asked does not imply that any particular answer is desired or expected. We appreciate your clarification on this issue. Coding Question(s): Please clarify: ERVIN ( x ) Acute Kidney Injury ( ) Acute Renal Insufficiency ( ) Acute Renal Failure ( ) Other: Please explain Medical Documentation: - Community acquired pneumonia: afebrile, less cough, breathing well, continue Levaquin for 6 more days - E. coli UTI: continue Levaquin, culture shows it is sensitive - Chronic diastolic HF: no acute component today, continue home dose of Lasix - Lymphadenopathy: resume compression stockings and follow up with lymphedema clinic - Mild ERVIN: due to dehydration, resolved, adequate UO - Hyperkalemia: likely combination of mild ERVIN and Lisinopril use, would Physician's Response(s): Thank you for your time. Lori Patten [facility] Principal Diagnosis: "_that condition established after study, to be chiefly responsible for occasioning the admission of the patient to the hospital for care." Co-Existing Principal Diagnosis: "_when two or more diagnoses equally meet the criteria for principal diagnosis as determined by the circumstances of admission, diagnostic work up, and/or therapy provided, and the Alphabetic Index, Tabular List, or another coding guideline does not provide sequencing direction, any one of the diagnoses may be sequenced first." "When the physician has documented what appears to be a current diagnosis in the body of the record, but has not included the diagnosis in the final diagnostic statement, the physician should be asked whether the diagnosis should be added." (Source Coding [facility] 2 QTR90. p3-4)
[2016-11-20] MEDS ORDERED: TPRSR50 PO (13:32)
[2016-11-20] MEDS ORDERED: BMX1 PO (13:32)
[2016-11-20] MEDS ORDERED: INSDGIPEN SC (13:32)
[2016-11-20] MEDS ORDERED: MCRK20 PO (13:32)
[2017-02-09] MEDS ORDERED: METO1TAB69 PO (23:41)
[2017-02-16] MEDS ORDERED: MCRB100 PO (08:08)
[2017-02-16] MEDS ORDERED: ALPR1TAB3 PO (08:08)
[2017-02-16] MEDS ORDERED: MCRK20 PO (08:08)
[2017-02-16] MEDS ORDERED: CPR500 PO (08:08)
[2017-02-16] MEDS ORDERED: BMX1 PO ×2 (08:08→15:01)
[2017-02-16] MEDS ORDERED: XRL20 PO (08:10)
[2017-03-13] MEDS ORDERED: CLIN300C2 PO (12:33)
== END 2016-10-23 14:00 | disposition home or self-care (01) | DRG 194 ==
LOC: ENRESERVTM → ENRESERVDT → EDBD 19:28 → C.EDB 19:30 → C.2T 22:18 → C.MS4W 10-21 16:52
PROVIDERS: ADMIT Internal Medicine; ATTEND Internal Medicine
DX: J18.9 Pneumonia, unspecified organism (principal); N17.9 Acute kidney failure, unspecified; N39.0 Urinary tract infection, site not specified; I50.32 Chronic diastolic (congestive) heart failure; Z68.44 Body mass index [BMI] 60.0-69.9, adult; I48.92 Unspecified atrial flutter; B96.20 Unspecified Escherichia coli [E. coli] as the cause of diseases classified elsewhere; I89.0 Lymphedema, not elsewhere classified; R53.1 Weakness; E11.65 Type 2 diabetes mellitus with hyperglycemia; E66.01 Morbid (severe) obesity due to excess calories; E03.9 Hypothyroidism, unspecified; E87.5 Hyperkalemia; E86.0 Dehydration; I48.0 Paroxysmal atrial fibrillation; I11.0 Hypertensive heart disease with heart failure; Z87.39 Personal history of other diseases of the musculoskeletal system and connective tissue; Z79.899 Other long term (current) drug therapy; Z79.4 Long term (current) use of insulin; Z99.89 Dependence on other enabling machines and devices; Z85.42 Personal history of malignant neoplasm of other parts of uterus; L98.9 Disorder of the skin and subcutaneous tissue, unspecified; L57.0 Actinic keratosis; I48.91 Unspecified atrial fibrillation; F32.9 Major depressive disorder, single episode, unspecified; F41.9 Anxiety disorder, unspecified; R59.1 Generalized enlarged lymph nodes; R26.9 Unspecified abnormalities of gait and mobility; E11.9 Type 2 diabetes mellitus without complications; Z91.128 Patient's intentional underdosing of medication regimen for other reason; Z99.81 Dependence on supplemental oxygen; Z79.01 Long term (current) use of anticoagulants

== ENCOUNTER 2016-10-23 17:09 | Inpatient (IN) | payer OTHER ==
[~2016-10-23] VITALS: Ht 157.5 cm; Wt 157.6 kg
[~2016-10-23 17:09] MED LIST changes: -ALBUAER INH; +ALLO100T PO; +ATOR-24 PO; +HYDR-3124 PO; +LISI-461 PO; +LVQ750 PO; +METF-384 PO; +RIVA1TAB4 PO; -TRIA0.1C20 TOP; +TRMCR515 TOP; +VNTHFA/IN INH; +ZLF/50 PO
--- NOTE | 2016-10-23 18:22 | DIAGNOSTIC IMAGING REPORT ---
CHEST ONE VIEW PORTABLE CLINICAL HISTORY: short of breath COMPARISON STUDY: 10/19/2016 FINDINGS: Developing increase in density right base. Underlying components of congestive failure similar to 2 slightly progressive from the prior exam. IMPRESSION: Congestive failure with superimposed right effusion/right basilar infiltrate. Findings are mildly progressive from the prior study. Electronically signed by: Richie Bowen M.D. 10/23/2016 6:21 PM Dictated Date/Time: 10/23/2016 6:18 PM
[2016-10-23 18:31] LABS: INR 1.2 (0.9-1.1); PARTIAL THROMBOPLASTIN RATIO 1.1; PROTHROMBIN TIME (PATIENT) 12.6 SECONDS (9.0-12.0)
[2016-10-23 18:35] LABS: BASO % 0.3 %; BASO ABS # 0.02 K/uL (0-0.2); COMPLETE YES; EOS % 0.9 %; IG% 0.5 %; LYMPH % 6.4 %; LYMPH ABS # 0.49 K/uL (1.2-3.4); MEAN CELL VOLUME 90.7 fL (80-100); MEAN CORPUSCULAR HEMOGLOBIN 28.8 pg (25-34); MEAN CORPUSCULAR HGB CONC 31.7 g/dl (32-36); MEAN PLATELET VOLUME 9.5 fL (7.4-10.4); MONO % 5.5 %; NEUT % 86.4 %; PLATELET COUNT 168 K/uL (130-400); RED BLOOD COUNT 4.52 M/uL (4.2-5.4); WHITE BLOOD COUNT 7.61 K/uL (4.8-10.8)
[2016-10-23 19:39] LABS: ALB/GLOB RATIO 0.9 (0.9-2); BUN/CREATININE RATIO 32.5 (10-20); CALCIUM 8.4 mg/dl (8.5-10.1); CREATININE 1.1 mg/dl (0.60-1.20)
[2016-10-23] MEDS ORDERED: ONDANSETRON INJ 2 MG/ML 2 ML VIAL IV PRN (20:30)
[2016-10-23] MEDS ORDERED: ALBUTEROL HFA 8 GM INHALER INH PRN (20:30)
[2016-10-23] MEDS ORDERED: GLUCOSE 40% GEL 15 GM TUBE PO PRN (20:30)
[2016-10-23] MEDS ORDERED: TRIAMCINOLONE ACET 0.5% CR 15 GM TUBE EXT PRN (20:30)
[2016-10-23] MEDS ORDERED: GLUCOSE 10 TABS/TUBE PO PRN (20:30)
[2016-10-23] MEDS ORDERED: ALUMINUM/MAGNESIUM/SIMETH (MAALOX MAX) 30 ML UDC PO PRN (20:30)
[2016-10-23] MEDS ORDERED: GLUCAGON FOR INJ 1 MG VIAL SQ PRN (20:30)
[2016-10-23] MEDS ORDERED: MAGNESIUM HYDROXIDE SUSP 30 ML UDC PO PRN (20:30)
[2016-10-23] MEDS ORDERED: ACETAMINOPHEN 325 MG TAB PO PRN (20:30)
[2016-10-23] MEDS ORDERED: hydrOXYzine HCL 25 MG TAB PO PRN (20:30)
[2016-10-23] MEDS ORDERED: DC ALL PREVIOUSLY ORDERED DIABETES MEDS ONE (20:30)
[2016-10-23] MEDS ORDERED: DEXTROSE 50% 50 ML SYR IV PRN (20:30)
[2016-10-23] MEDS ORDERED: ENOXAPARIN 40 MG/0.4 ML SYR SQ SCH (20:30)
[2016-10-23 20:35] LABS: POTASSIUM 5.8 mmol/L (3.5-5.1)
[2016-10-23] MEDS ORDERED: FUROSEMIDE 40 MG/4 ML VIAL IV STA (20:40)
[2016-10-23] MEDS ORDERED: FUROSEMIDE INJ 40 MG in SYRINGE 0 ML IV SCH (20:40)
[2016-10-23] MEDS ORDERED: INSULIN LISPRO PROTAMINE SC SCH (21:00)
[2016-10-23] MEDS ORDERED: METFORMIN HCL 500 MG TAB PO SCH (21:00)
[2016-10-23] MEDS ORDERED: INSULIN LISPRO SC SCH (21:00)
[2016-10-23] MEDS ORDERED: [UNRECOGNIZED DRUG - OTHER] SC SCH (21:00)
[2016-10-23] MEDS ORDERED: PHARMACY GLYCEMIC MGMT CONSULT PRN (21:10)
[2016-10-23] MEDS ORDERED: POLYETHYLENE (MIRALAX) 17 GM PACK PO PRN (21:15)
[2016-10-23 22:03] VITALS: BP 145/89; PULSE 77; TEMP 36.7; Ht 157.5 cm; Wt 157.6 kg
[2016-10-23] MEDS: INSULIN ASPART 100 UNITS/ML 3 ML PEN SC SCH (23:33)
[2016-10-23] MEDS: INSULIN GLARGINE SOLOSTAR 100 UNITS/ML 3 ML PEN SC SCH (23:34)
--- NOTE | 2016-10-23 23:34 | HISTORY & PHYSICAL EXAMINATION ---
DATE OF ADMISSION: 10/23/2016 CHIEF COMPLAINT: "I cannot walk, shortness of breath." HISTORY OF PRESENT ILLNESS: This is a 71-year-old female who presents to Emergency Room complaining of worsening shortness of breath that started 4 hours before she came to Emergency Room. As per patient and her , she was discharged today from [facility]. Their main complaint actually the fact that when she came home, she could not walk. She was hospitalized for 5 days and she feels weak and tired. During her hospitalization, she was diagnosed with pneumonia and UTI and she is currently finishing Levaquin. The patient states that she felt good with physical therapies and was comfortable with going home. Today, her helped her out of the car and she was really weak and she had trouble getting into the house and she was scared that she would fall and she felt palpitations while she was walking. The patient used 3 liters of oxygen all the time, but she did not wear it while she was moving from the car into the house. She denies fever, diarrhea, change of mental status, swelling. REVIEW OF SYSTEMS: Negative except as above, 06/29 systems were reviewed. PAST MEDICAL HISTORY: Acquired lymphedema, atrial flutter, CHF exacerbation, diabetes type 2, endometrial cancer, epistaxis, hypertension, hypothyroidism, morbid obesity, sciatica, UTI, pneumonia. FAMILY HISTORY: Alzheimer disease. SOCIAL HISTORY: Does not smoke, does not drink, . CURRENT MEDICATIONS: Allopurinol 100 mg p.o. daily, atorvastatin 40 mg p.o. daily, cholecalciferol 2000 international units p.o. daily, diltiazem 240 mg p.o. daily, fluticasone 2 puffs inhaled b.i.d., furosemide 40 mg p.o. daily, insulin lispro, Humalog Mix 75/25 80 units subcutaneous q. 12, levofloxacin 750 mg p.o. daily, levothyroxine 50 mcg p.o. daily, magnesium 400 mg p.o. daily, metformin 1000 mg p.o. b.i.d., metoprolol 100 mg p.o. daily, multivitamin 1 tablet p.o. daily, oxygen 3 liters continuously, Xarelto 20 mg p.o. daily, sertraline 50 mg p.o. daily, triamcinolone 1 application topically p.r.n., albuterol HFA 2 puffs inhaled q. 4 hours p.r.n. shortness of breath, albuterol 1 unit p.o. q. 4 hours p.r.n. shortness of breath, Xanax 0.5 mg p.o. b.i.d. p.r.n. anxiety, Vaniqa 1 application topical b.i.d. p.r.n. hirsutism, hydroxyzine 25 mg p.o. q. 8 hours p.r.n. itching. ALLERGIES: SHE IS ALLERGIC TO MINERAL OIL, PENICILLINS, PETROLATUM, METRONIDAZOLe PHYSICAL EXAMINATION: VITAL SIGNS: Temperature is 36.3, pulse 71, respirations 18, blood pressure 142/53, 98% on 4 liters nasal cannula. GENERAL: Not in acute distress, looks weak. HEENT: Normocephalic, atraumatic. PERRLA, EOMI. Mouth moist, no lesions. NECK: No JVD. Trachea midline. Thyroid is not enlarged. LUNGS: Clear to auscultation bilateral. No wheezes, no rhonchi. HEART: Irregularly irregular. ABDOMEN: Soft, nontender, obese. Bowel sounds present bilateral. EXTREMITIES: Bilateral pitting edema 1+. No cellulitis. NEUROLOGICAL: Alert, oriented x3. Motor sensory normal. SKIN: No rash. No jaundice. DIAGNOSTIC INTERPRETATION: Chest x-ray: Congestive failure with superimposed right effusion, right basilar infiltrate, mildly progressive from prior study. LABS: CBC normal. CMP is pending from today. EK beats per minute, possible atrial fibrillation but there is a lot of artifact, no ST-T wave changes. No significant change compared to 10/19/2016. ASSESSMENT AND PLAN: This is a 71-year-old female who comes to the hospital with weakness and shortness of breath. 1. Shortness of breath with a recent admission for pneumonia in the setting of chronic diastolic congestive heart failure as worsening, chest x-ray is suggesting progressive congestion. Give IV Lasix now and monitor response. Continue oxygen 3 liters nasal cannula. 2. Difficulty ambulation. We will consult physical therapy, occupational therapy. The patient is agreeable to be discharged to group home home or rehab. 3. Recent community acquired pneumonia, Escherichia coli urinary tract infection. Continue oral Levaquin. 4. History of chronic diastolic congestive heart failure as above. Continue Lasix. 5. Lymphadenopathy. Resume compression stockings and follow up with lymphedema clinic. 6. Diabetes type 2. Restart outpatient regimen in the form of Humalog Mix 75/25 80 units subQ q. 12. Hold metformin and utilize insulin sliding scale. 7. History of atrial fibrillation, currently rate controlled with metoprolol. Continue Xarelto. 8. Deep venous thrombosis prophylaxis. The patient is on Xarelto. The patient is a full code. TIME SPENT ON DOING THIS ADMISSION: 40 minutes. MTDD
[2016-10-23] MEDS: FLUTICASONE HFA 110MCG INHALER INH SCH (23:35)
[2016-10-23] MEDS: LEVOFLOXACIN 750 MG TAB PO SCH (23:35)
[2016-10-24] VITALS (8 sets, daily range): BP systolic 134–158; BP diastolic 74–78; PULSE 72–92; TEMP 36.4–36.7; O2SAT 93–98
--- NOTE | 2016-10-24 00:22 | EMERGENCY ROOM VISIT NOTE ---
History Report prepared by Jose: Rocio Lerma Under the Supervision of: Dr. Ryan Toth M.D. First contact with patient: 18:12 Chief Complaint: SHORTNESS OF BREATH Stated Complaint: SOB Nursing Triage Summary: Pt presents to ER via ALS with reports of shortness of breath. Pt just discharged from [facility] earlier today with PNA and UTI. EMS reports at home RA sat was 76%, pt reports she wears 3L at home all the time. Pt lethargic, but oriented and answers questions appropriately. Pt reports she was wearing her O2 at home when episode occurred. History of Present Illness The patient is a 71 year old female who presents to the Emergency Room with complaints of worsening shortness of breath beginning 4 hours prior to arrival. Per the patient and her , she was discharged today from [facility]. The patient was hospitalized for 5 days for weakness and fatigue. During her hospitalization she was diagnosed with pneumonia and a UTI, she is currently on Levaquin. The patient states that yesterday when working with the therapist she felt good and comfortable with going home. Today her helped her out of the car and she was very weak. The patient had trouble getting into the house and it took her a very long time. She notes she felt her heart flutter very noticeably when walking. She was short of breath. Patient does wear 3L oxygen daily however was not wearing it while she moved from the car into the house. She denies fever, one sided weakness, or diarrhea. 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 A total of 10 systems reviewed and were otherwise negative. Past Medical & Surgical Medical Problems: (1) Acquired lymphedema (2) Atrial flutter (3) CHF exacerbation (4) Diab W Oth Coma, Type I [Juvenile Type], Uncontrolled (5) Diabetes mellitus type 2, uncontrolled (6) Endometrial cancer (7) Epistaxis (8) Hypertension Nos (9) Hypertension Nos (10) Hypothyroidism (11) Morbid obesity (12) Obesity (13) Sciatica (14) Weakness Family History FH: Alzheimers disease Social History Smoking Status: Never Smoker Alcohol Use: none Drug Use: none Marital Status: Housing Status: lives with family Occupation Status: unemployed Current/Historical Medications Scheduled Allopurinol (Zyloprim), 100 MG PO DAILY AT 1200 Atorvastatin (Lipitor), 40 MG PO QAM Cholecalciferol (Vitamin D3), 2,000 INTER.UNIT PO DAILY Diltiazem Hcl Extended Release (Diltiazem Hcl), 240 MG PO QAM Fluticasone Propionate (Flovent Hfa), 2 PUFFS INH BID Furosemide (Lasix), 40 MG PO QAM Insulin Lispro Protamine & Lis (Humalog Mix 75/25 Kwikpen), 80 UNITS SC Q12 Levofloxacin (Levofloxacin), 750 MG PO DAILY Levothyroxine Sodium (Levothyroxine Sodium), 50 MCG PO QAM Magnesium Oxide (Mag-Ox), 400 MG PO DAILY AT NOON Metformin Hcl (Glucophage), 1,000 MG PO BID Metoprolol Succinate (Metoprolol Succinate ER), 100 MG PO QAM Multiple Vitamins W/ Minerals (Centrum Silver Adult 50+), 1 TAB PO QAM Oxygen (Oxygen), 3 LITERS NA CONTINOUS Rivaroxaban (Xarelto), 20 MG PO QPM Sertraline HCl (Sertraline HCl), 50 MG PO DAILY Triamcinolone Acet (Triamcinolone Acetonide), 1 APPLN TOP PRN UD Scheduled PRN Albuterol Hfa (Ventolin Hfa), 2 PUFFS INH Q4 PRN for SOB/Wheezing Albuterol Sulf (Albuterol Sulfate), 1 UNIT PO Q4 PRN for SOB/Wheezing Alprazolam (Xanax), 0.5 MG PO BID PRN for Anxiety Eflornithine Hcl (Vaniqa), 1 APPLN TOP BID PRN for Hirsutism Hydroxyzine Hcl (Atarax), 25 MG PO Q8 PRN for Itching Allergies Coded Allergies: Mineral Oil (Verified Allergy, Intermediate, LEGS SWELL, 10/18/16) Penicillins (Verified Allergy, Intermediate, HIVES, 10/18/16) Petrolatum (Verified Allergy, Intermediate, LEGS SWELL, 10/18/16) Metronidazole (Unverified Allergy, Unknown, NAUSEA, 10/18/16) Uncoded Allergies: FLAVONOIDS (Allergy, Unknown, ., 05/17/16) Physical Exam Vital Signs Date Time Temp Pulse Resp B/P Pulse Ox O2 Delivery O2 Flow Rate FiO2 10/23/16 22:03 36.7 77 24 145/89 Nasal Cannula 4.0 10/23/16 21:15 73 18 141/61 97 Nasal Cannula 4.0 10/23/16 19:39 76 21 136/60 95 10/23/16 19:09 74 24 96 10/23/16 18:39 76 25 97 10/23/16 18:09 75 21 99 10/23/16 18:08 98 Nasal Cannula 4.0 10/23/16 17:56 71 18 142/53 98 4.0 10/23/16 17:54 142/53 10/23/16 17:50 70 10/23/16 17:22 95 Nasal Cannula 4.0 10/23/16 17:22 36.3 81 20 136/91 83 Room Air 10/23/16 17:22 83 Room Air 10/23/16 17:20 136/91 Physical Exam GENERAL: Patient is in no acute distress. HEENT: No acute trauma, normocephalic atraumatic, mucous membranes moist, no nasal congestion, no scleral icterus. NECK: No stridor, no adenopathy, no meningismus, trachea is midline. LUNGS: Clear to auscultation bilaterally, no wheeze, no rhonchi, breath sounds equal. HEART: Irregular with normal rate and no murmurs. ABDOMEN: Soft, nontender, bowel sounds positive, no hernias, no peritonitis. EXTREMITIES: No cyanosis, moderate bilateral pitting edema, no cellulitis, full range of motion of all the joints without pain or difficulty, no signs for acute trauma. NEUROLOGIC: Oriented x 3, no acute motor or sensory deficits, no focal weakness. SKIN: No rash, no jaundice, no diaphoresis. Medical Decision & Procedures ER Provider Diagnostic Interpretation: X-ray results as stated below per interpretation by me and the radiologist: CHEST ONE VIEW PORTABLE CLINICAL HISTORY: short of breath COMPARISON STUDY: 10/19/2016 FINDINGS: Developing increase in density right base. Underlying components of congestive failure similar to 2 slightly progressive from the prior exam. IMPRESSION: Congestive failure with superimposed right effusion/right basilar infiltrate. Findings are mildly progressive from the prior study. Electronically signed by: Richie Bowen M.D. 10/23/2016 6:21 PM Dictated Date/Time: 10/23/2016 6:18 PM Laboratory Results 10/23/16 17:31 Red Blood Count 4.52, Mean Corpuscular Volume 90.7, Mean Corpuscular Hemoglobin 28.8, Mean Corpuscular Hemoglobin Concent 31.7, Mean Platelet Volume 9.5, Neutrophils (%) (Auto) 86.4, Lymphocytes (%) (Auto) 6.4, Monocytes (%) (Auto) 5.5, Eosinophils (%) (Auto) 0.9, Basophils (%) (Auto) 0.3, Neutrophils # (Auto) 6.57, Lymphocytes # (Auto) 0.49, Monocytes # (Auto) 0.42, Eosinophils # (Auto) 0.07, Basophils # (Auto) 0.02 10/23/16 17:31 Test 10/23/16 17:31 10/23/16 18:24 White Blood Count 7.61 K/uL (4.8-10.8) Red Blood Count 4.52 M/uL (4.2-5.4) Hemoglobin 13.0 g/dL (12.0-16.0) Hematocrit 41.0 % (37-47) Mean Corpuscular Volume 90.7 fL (80-100) Mean Corpuscular Hemoglobin 28.8 pg (25-34) Mean Corpuscular Hemoglobin Concent 31.7 g/dl (32-36) Platelet Count 168 K/uL (130-400) Mean Platelet Volume 9.5 fL (7.4-10.4) Neutrophils (%) (Auto) 86.4 % Lymphocytes (%) (Auto) 6.4 % Monocytes (%) (Auto) 5.5 % Eosinophils (%) (Auto) 0.9 % Basophils (%) (Auto) 0.3 % Neutrophils # (Auto) 6.57 K/uL (1.4-6.5) Lymphocytes # (Auto) 0.49 K/uL (1.2-3.4) Monocytes # (Auto) 0.42 K/uL (0.11-0.59) Eosinophils # (Auto) 0.07 K/uL (0-0.5) Basophils # (Auto) 0.02 K/uL (0-0.2) RDW Standard Deviation 57.3 fL (36.4-46.3) RDW Coefficient of Variation 17.3 % (11.5-14.5) Immature Granulocyte % (Auto) 0.5 % Immature Granulocyte # (Auto) 0.04 K/uL (0.00-0.02) Prothrombin Time 12.6 SECONDS (9.0-12.0) Prothromb Time International Ratio 1.2 (0.9-1.1) Activated Partial Thromboplast Time 29.4 SECONDS (21.0-31.0) Partial Thromboplastin Ratio 1.1 Anion Gap 7.0 mmol/L (3-11) Est Creatinine Clear Calc Drug Dose 68.6 ml/min Estimated GFR () 58.1 Estimated GFR (Non- 50.1 BUN/Creatinine Ratio 32.5 (10-20) Calcium Level 8.4 mg/dl (8.5-10.1) Total Bilirubin 0.7 mg/dl (0.2-1) Aspartate Amino Transf (AST/SGOT) 34 U/L (15-37) Alanine Aminotransferase (ALT/SGPT) 44 U/L (12-78) Alkaline Phosphatase 121 U/L (45-117) Troponin I < 0.015 ng/ml (0-0.045) Pro-B-Type Natriuretic Peptide 914 pg/ml (0-900) Total Protein 6.7 gm/dl (6.4-8.2) Albumin 3.2 gm/dl (3.4-5.0) Globulin 3.5 gm/dl (2.5-4.0) Albumin/Globulin Ratio 0.9 (0.9-2) Bedside Troponin I 0.010 ng/ml (0-0.045) Laboratory results reviewed by me. Medications Administered Medications (Trade) Dose Ordered Sig/Johnnie Route Start Time Stop Time Status Last Admin Dose Admin Fluticasone Propionate (Flovent Hfa 110MCG Inhaler) 2 puffs BID INH 10/23/16 21:00 11/22/16 20:59 10/23/16 23:35 2 PUFFS Levofloxacin (Levaquin Tab) 750 mg DAILY@2200 PO 10/23/16 22:00 11/02/16 21:59 10/23/16 23:35 750 MG Insulin Aspart (novoLOG ASPART) SLIDING SCALE If C... ACHS SC 10/23/16 21:00 11/22/16 20:59 10/23/16 23:33 2 UNITS Miscellaneous Information (Dc All Previously Ordered Diabetes Meds) 1 ea ONE ONCE N/A 10/23/16 20:30 10/23/16 20:59 DC 10/23/16 20:30 1 EA Insulin Glargine SEE PROTOCOL TEXT BID SC 10/23/16 22:00 11/22/16 21:59 10/23/16 23:34 20 UNIT Furosemide/Syringe (Lasix Inj/ Syringe) 4 ml @ 4 mls/min TODAY@2039 IV 10/23/16 20:40 10/23/16 23:59 DC 10/23/16 23:59 4 MLS/MIN ECG Indication: SOB/dyspnea Rate (beats per minute): 83 Rhythm: other (rhythm maybe atrial fibrilation, difficult to interprate as there is significant baseline artifact) Findings: no acute ischemic change Change: no significant change (from 10/19/16) ED Course 1816: The patient was evaluated in room B3. A complete history and physical exam was performed. 183: Discussed the patient's case with Dr. Mary HERNANDEZ. The patient will be evaluated for further management. 1836: Upon reexamination the patient is hemodynamically stable. I discussed results and treatment plan with the patient. She verbalizes agreement and understanding. The patient will be evaluated for further management. Medical Decision The patient is a 71 year old female who presents to the ED with complaints of shortness of breath. Differential diagnoses considered include debilitation, hypoxia, UTI, anemia, electrolyte imbalance, CHF, MN, failed outpatient treatment. There is no leukocytosis or worrisome anemia. Renal panel testing shows a mildly elevated potassium, no kidney failure. There is no hepatitis or concerning coagulopathy. Chest film shows possible CHF versus changes secondary to the patient's size. A right lower lobe infiltrate was noted. EKG shows atrial fibrillation/atrial flutter. There was no acute ischemia. Cardiac enzyme testing 1 is not consistent with acute cardiac injury. BNP is slightly elevated consistent with fluid overload. The patient had been home for just a few hours and returns by ambulance feeling short of breath, she had palpitations. She is not stable for outpatient management. She likely will require rehabilitation before going home. I do think a repeat hospital stay is required. I did speak with the patient and case management. The on-call hospitalist was consulted. In short, the patient still has the pneumonia may also have some fluid overload. Further care in the hospital is required. Consults Time Called: 1828 Consulting Physician: Dr. Mary CRUMP Returned Call: 1830 Discussed the patient's case. The patient will be evaluated for further management. Impression Primary Impression: SOB (shortness of breath) Additional Impressions: Weakness Failure of outpatient treatment Scribe Attestation The scribe's documentation has been prepared under my direction and personally reviewed by me in its entirety. I confirm that the note above accurately reflects all work, treatment, procedures, and medical decision making performed by me. Departure Information Dispostion Being Evaluated By Hospitalist Raymond Snow M.D. (PCP) Problem Qualifiers
[2016-10-24] MEDS: LEVOTHYROXINE 50 MCG TAB PO SCH (06:38)
[2016-10-24] MEDS: ALBUT/IPRATROP 3MG/0.5MG NEB 3 ML VIAL INH SCH ×4 (07:46→19:26)
[2016-10-24 07:54] LABS: BUN/CREATININE RATIO 33.7 (10-20); CALCIUM 8.3 mg/dl (8.5-10.1); CREATININE 0.86 mg/dl (0.60-1.20); POTASSIUM 4.5 mmol/L (3.5-5.1)
[2016-10-24] MEDS: FUROSEMIDE 40 MG TAB PO SCH ×2 (08:00→09:36)
[2016-10-24 08:36] LABS: BASO % 0.5 %; BASO ABS # 0.03 K/uL (0-0.2); COMPLETE YES; EOS % 1.7 %; HEMATOCRIT 38.4 % (37-47); IG% 0.2 %; LYMPH % 11.6 %; LYMPH ABS # 0.74 K/uL (1.2-3.4); MEAN CORPUSCULAR HEMOGLOBIN 29.4 pg (25-34); MEAN CORPUSCULAR HGB CONC 32.3 g/dl (32-36); MEAN PLATELET VOLUME 9.5 fL (7.4-10.4); MONO % 9.5 %; NEUT % 76.5 %; PLATELET COUNT 154 K/uL (130-400); RED BLOOD COUNT 4.22 M/uL (4.2-5.4)
--- NOTE | 2016-10-24 09:14 | Clinical Documentation Query ---
AUREA Qiu : CLINICAL DOCUMENTATION QUERY QUERY 1 OF 2 Patient is a 71 year old female admitted for "Shortness of breath with a recent admission for pneumonia in the setting of chronic diastolic congestive heart failure as worsening, chest x-ray is suggesting progressive congestion." Although implicit, the auditing coder cannot assume the above to equate with acute on chronic diastolic CHF. If this was the intent of this statement, please clarify as suggested below. In your clinical opinion is this patient being managed for: ( x ) Acute on chronic diastolic CHF ( ) Other explanation of clinical findings (Please Explain) ( ) Unable to determine (Please Define) ( ) Need to Discuss ( ) Not Agree The medical record reflects the following clinical findings, treatment, and risk factors. Clinical Indicators: As above Treatment: Telemetry, IV Lasix, supplemental O2 Risk Factors: Age, obesity, chronic diastolic CHF, pneumonia QUERY 2 OF 2 H&P notes patient utilization of 3 L/min of supplemental O2 via nasal cannula by this patient at all times. Please clarify as clinically appropriate. Thank you. In your clinical opinion is this patient being managed for: ( x ) Chronic hypoxic respiratory failure ( ) Other explanation of clinical findings (Please Explain) ( ) Unable to determine (Please Define) ( ) Need to Discuss ( ) Not Agree The medical record reflects the following clinical findings, treatment, and risk factors. Clinical Indicators: As above Treatment: Ongoing supplementation of oxygen via nasal cannula Risk Factors: Age, morbid obesity Please clarify and document your clinical opinion in the progress notes and discharge summary. Terms such as "probable", "suspected", "likely", "questionable", "possible", or "still to be ruled out" are acceptable. IF IN AGREEMENT, YOU MUST DOCUMENT ABOVE DIAGNOSTIC STATEMENT IN DAILY PROGRESS NOTES AND DISCHARGE SUMMARY. This document is not part of the patient's record. Thank You, Gregory Villalobos, RN [phone]
[2016-10-24] MEDS: SERTRALINE HCL 50 MG TAB PO SCH (09:20)
[2016-10-24] MEDS: INSULIN ASPART 100 UNITS/ML 3 ML PEN SC SCH ×4 (09:24→21:45)
[2016-10-24] MEDS: INSULIN GLARGINE SOLOSTAR 100 UNITS/ML 3 ML PEN SC SCH ×2 (09:26→21:46)
[2016-10-24] MEDS: ALLOPURINOL 100 MG TAB PO SCH (09:26)
[2016-10-24] MEDS: METOPROLOL SUCC 50MG EXT REL TAB PO SCH (09:27)
[2016-10-24] MEDS: MAGNESIUM OXIDE 400 MG TAB PO SCH (09:28)
[2016-10-24] MEDS: CHOLECALCIFEROL 1000 INTER.UNIT TAB PO SCH (09:28)
[2016-10-24] MEDS: CEROVITE ADV FORMULA TAB PO SCH (09:28)
[2016-10-24] MEDS: ATORVASTATIN 40 MG TAB PO SCH (09:29)
[2016-10-24] MEDS: DILTIAZEM HCL 240 MG CAPCR PO SCH (09:29)
[2016-10-24] MEDS ORDERED: GUAIFENESIN 600 MG TABCR PO ONE (09:40)
[2016-10-24] MEDS ORDERED: SODIUM CHLORIDE 0.65% NA SOLN 45 ML (OCEAN) ONE (10:21)
[2016-10-24] MEDS: FLUTICASONE HFA 110MCG INHALER INH SCH ×2 (10:26→20:05)
[2016-10-24] MEDS ORDERED: SODIUM CHLORIDE 0.65% NA SOLN 45 ML (OCEAN) NAE PRN (10:30)
--- NOTE | 2016-10-24 14:00 | Pharmacy Progress Note ---
Glycemic Control Intl Consult Date of Service Oct 24, 2016. Scope Glycemic Pharmacist consulted by Dr Hernandez on 10/23/16 for glycemic control and to write orders per [facility] inpatient glycemic control protocol Objective Weight (Kilograms): 157.600 Accuchecks BSG (last 24hrs): Test 10/23/16 17:31 10/24/16 07:00 10/24/16 11:40 Random Glucose 217 mg/dl (70-99) 170 mg/dl (70-99) Bedside Glucose 155 mg/dl (70-90) Laboratory Data (last 24hrs) Test 10/23/16 17:31 10/24/16 07:00 Anion Gap 7.0 mmol/L 7.0 mmol/L BUN/Creatinine Ratio 32.5 33.7 Blood Urea Nitrogen 36 mg/dl 29 mg/dl Creatinine 1.10 mg/dl 0.86 mg/dl Potassium Level 5.8 mmol/L 4.5 mmol/L Sodium Level 135 mmol/L 137 mmol/L White Blood Count 7.61 K/uL 6.40 K/uL Red Blood Count 4.52 M/uL 4.22 M/uL Hemoglobin 13.0 g/dL 12.4 g/dL Hematocrit 41.0 % 38.4 % Mean Corpuscular Volume 90.7 fL 91.0 fL Mean Corpuscular Hemoglobin 28.8 pg 29.4 pg Mean Corpuscular Hemoglobin Concent 31.7 g/dl 32.3 g/dl Platelet Count 168 K/uL 154 K/uL Mean Platelet Volume 9.5 fL 9.5 fL Neutrophils (%) (Auto) 86.4 % 76.5 % Lymphocytes (%) (Auto) 6.4 % 11.6 % Monocytes (%) (Auto) 5.5 % 9.5 % Eosinophils (%) (Auto) 0.9 % 1.7 % Basophils (%) (Auto) 0.3 % 0.5 % Neutrophils # (Auto) 6.57 K/uL 4.90 K/uL Lymphocytes # (Auto) 0.49 K/uL 0.74 K/uL Monocytes # (Auto) 0.42 K/uL 0.61 K/uL Eosinophils # (Auto) 0.07 K/uL 0.11 K/uL Basophils # (Auto) 0.02 K/uL 0.03 K/uL Recent Pertinent Medications Outpatient Anti-diabetic Regimen: * Humalog Mix 75/25 * 80 units SQ BID * Metformin 1000mg PO BID * A1c = 6.8% 09/29/16 The patient is currently receiving: * Basal insulin: Lantus 0-20 units every 12 hours based on BSG Received 20 units SQ x1 on 2/7 PM Received 15 units SQ x1 on 2/8 AM * Correctional Insulin: NovoLog Correction per scale AC/HS Goal Range: Low 120 mg/dL - High 160 mg/dL Correction Factor: 20 mg/dL/unit * Prandial insulin: Per carb ratio of 1 unit per 7 grams CHO consumed * Oral Agents: held on admission Risk Factors for Insulin Resistance: * Infection: Levofloxacin PO (from outpatient Rx) * Diet: T2DM Assessment & Plan ASSESSMENT: * ADA & AACE recommend a goal blood sugar range 140-180 mg/dl for the majority of critically ill & non-critically ill patients. However, more stringent targets may be selected in individual cases. 10/24/16 * 71 y/o type 2 diabetic with recent admission for UTI/Pnx * Home diabetes regimen includes mixed insulin and metformin * change to Lantus/NovoLog while admitted for ease of titration * hold metformin on admission * Derive Lantus/NovoLog doses from weight based insulin calculator as Ms. Arellano' s regimen is quite aggressive and during her last stay, she did not require as much insulin as compare to an outpatient * A1c is current * 6.8% may either indicate great control or the possible presence of hypoglycemia PLAN FOR INPATIENT GLYCEMIC CONTROL: * Lantus SQ q 12 hours * 0 units if </= 120mg/dL * 15 units if 121-179mg/dL * 20 units if >/=180mg/dL * NovoLog AC and HS * Correction factor: 20mg/dL/unit * Carb ratio: 1 unit per 7g of CHO consumed * Goal range: 120-160mg/dL * A1c - current * added to discharge instructions * Please note that the plan above was derived based on current level of insulin resistance and hospital stress. These recommendations are appropriate for inpatient admission only. Plan of care upon discharge will need to be reassessed to avoid potential outpatient hypo/hyperglycemia. Thank you.
--- NOTE | 2016-10-24 14:50 | Progress Note ---
Subjective Date of Service: Oct 24, 2016. Subjective Pt evaluation today including: conversation w/ patient, conversation w/ family , physical exam, chart review, lab review, review of studies, review of inpatient medication list Patient seen and evaluated. Patient reports that she feels a lot worse compared to yesterday. She states her biggest complaint is she feels congested reports nasal congestion , facial pressure, and post-nasal drip. She reports more noticeable palpitations and feelings on jitteriness that creates SOB. Tried to pinpoint the chronology of the symptoms which seems that a possible element of anxiety is contributing to her symptoms. She does not believe these symptoms exacerbate after nebulizer treatments She complains of generalized weakness and noticed this when trying to get out of the car and into her house and expressed fear of falling. She received IV Lasix upon admission and was upset that she had difficulty getting to the bedside commode and urinated on the floor. Problem List Medical Problems: (1) Abdominal pain, epigastric Status: Acute (2) Acute bronchitis Status: Acute (3) Bleeding Status: Acute (4) Failure of outpatient treatment Status: Acute (5) Generalized weakness Status: Acute (6) Pneumonia Status: Acute (7) Sinusitis Status: Acute (8) SOB (shortness of breath) Status: Acute Review of Systems Constitutional: + fatigue, + weakness (generalized), No chills, No fever Eyes: No worsening of vision ENT: + nasal symptoms, + sore throat, No trouble swallowing Respiratory: + cough, + shortness of breath Cardiac: + palpitations, No chest pain Abdomen: No constipation, No diarrhea, No nausea, No pain, No vomiting Musculoskeletal: No calf pain Female : No dysuria Psychiatric: + anxiety Endo: + fatigue Skin: No rash Medications Current Inpatient Medications Medications (Trade) Dose Ordered Sig/Johnnie Route Start Time Stop Time Status Last Admin Dose Admin Albuterol (Ventolin Hfa Inhaler) 2 puffs Q4 PRN INH 10/23/16 20:30 11/22/16 20:29 Allopurinol (Zyloprim Tab) 100 mg DAILY PO 10/24/16 08:00 11/23/16 08:59 10/24/16 09:26 100 MG Alprazolam (Xanax Tab) 0.5 mg BID PRN PO 10/23/16 20:30 11/22/16 20:29 Atorvastatin Calcium (Lipitor Tab) 40 mg QAM PO 10/24/16 08:00 11/23/16 08:59 10/24/16 09:29 40 MG Fluticasone Propionate (Flovent Hfa 110MCG Inhaler) 2 puffs BID INH 10/23/16 21:00 11/22/16 20:59 10/24/16 10:26 2 PUFFS Furosemide (Lasix Tab) 40 mg QAM PO 10/24/16 08:00 11/23/16 08:59 10/24/16 09:36 40 MG Hydroxyzine HCl (Vistaril Tab) 25 mg Q8 PRN PO 10/23/16 20:30 11/22/16 20:29 Levofloxacin (Levaquin Tab) 750 mg DAILY@2200 PO 10/23/16 22:00 10/28/16 22:01 10/23/16 23:35 750 MG Levothyroxine Sodium (Synthroid Tab) 50 mcg DAILYBB PO 10/24/16 06:30 11/23/16 06:59 10/24/16 06:38 50 MCG Magnesium Oxide (Mag-Ox Tab) 400 mg DAILY PO 10/24/16 08:00 11/23/16 08:59 10/24/16 09:28 400 MG Multivitamins/ Minerals (Multivitamin W/ Minerals Tab) 1 tab QAM PO 10/24/16 08:00 11/23/16 08:59 10/24/16 09:28 1 TAB Rivaroxaban (Xarelto Tab) 20 mg QDD PO 10/24/16 17:00 11/23/16 17:59 Sertraline HCl (Zoloft Tab) 50 mg DAILY PO 10/24/16 08:00 11/23/16 08:59 10/24/16 09:20 50 MG Triamcinolone Acetonide (Kenalog 0.5% Crm) 1 appln DAILY PRN EXT 10/23/16 20:30 11/22/16 20:29 Cholecalciferol (Vitamin D Tab) 2,000 inter.unit DAILY PO 10/24/16 08:00 11/23/16 08:59 10/24/16 09:28 2,000 INTER.UNIT Diltiazem HCl (Cardizem Cd Cap) 240 mg DAILY PO 10/24/16 08:00 11/23/16 08:59 10/24/16 09:29 240 MG Miscellaneous Information (Order Awaiting Action) 1 ea QS N/A 10/24/16 00:00 11/23/16 00:00 Metoprolol Succinate (Toprol Xl Tab) 100 mg DAILY PO 10/24/16 08:00 11/23/16 08:59 10/24/16 09:27 100 MG Albuterol/ Ipratropium (Duoneb) 3 ml QIDR INH 10/24/16 08:00 11/23/16 07:59 10/24/16 11:54 3 ML Acetaminophen (Tylenol Tab) 650 mg Q4H PRN PO 10/23/16 20:30 11/22/16 20:29 Al Hydrox/Mg Hydrox/Simethicone (Maalox Max Susp) 15 ml Q4H PRN PO 10/23/16 20:30 11/22/16 20:29 Magnesium Hydroxide (Milk Of Magnesia Susp) 30 ml Q6H PRN PO 10/23/16 20:30 11/22/16 20:29 Polyethylene (Miralax Powder Packet) 17 gm DAILY PRN PO 10/23/16 21:15 11/22/16 21:14 Ondansetron HCl (Zofran Inj) 4 mg Q6H PRN IV 10/23/16 20:30 11/22/16 20:29 Insulin Aspart (novoLOG ASPART) SLIDING SCALE If C... ACHS SC 10/23/16 21:00 11/22/16 20:59 10/24/16 13:01 8 UNITS Glucose (Glucose 40% Gel) 15-30 GRAMS 15 GRAMS... UD PRN PO 10/23/16 20:30 11/22/16 20:29 Glucose (Glucose Chew Tab) 4-8 Tablets 4 Tabl... UD PRN PO 10/23/16 20:30 11/22/16 20:29 Dextrose (Dextrose 50% 50ML Syringe) 25-50ML OF 50% DW IV FOR... UD PRN IV 10/23/16 20:30 11/22/16 20:29 Glucagon (Glucagon Inj) 1 mg UD PRN SQ 10/23/16 20:30 11/22/16 20:29 Miscellaneous Information (Consult Glycemic Management Pharmacy) 1 ea UD PRN N/A 10/23/16 21:10 11/22/16 21:09 Insulin Glargine (Lantus Solostar Pen) SEE PROTOCOL TEXT BID SC 10/23/16 22:00 11/22/16 21:59 10/24/16 09:26 15 UNIT Guaifenesin (Mucinex Contr Rel Tab) 1,200 mg Q12 PO 10/24/16 21:00 11/23/16 20:59 Sodium Chloride ([place] Nasal [place]) 2 sprays Q6H PRN CHRISTINA 10/24/16 10:30 11/23/16 10:29 Objective Vital Signs Date Time Temp Pulse Resp B/P Pulse Ox O2 Delivery O2 Flow Rate FiO2 10/24/16 11:55 72 20 98 Nasal Cannula 3.0 10/24/16 11:17 Room Air 10/24/16 07:58 36.4 91 20 147/77 93 Room Air 10/24/16 07:46 92 20 93 Room Air 10/23/16 22:03 36.7 77 24 145/89 Nasal Cannula 4.0 10/23/16 21:15 73 18 141/61 97 Nasal Cannula 4.0 10/23/16 19:39 76 21 136/60 95 10/23/16 19:09 74 24 96 10/23/16 18:39 76 25 97 10/23/16 18:09 75 21 99 10/23/16 18:08 98 Nasal Cannula 4.0 10/23/16 17:56 71 18 142/53 98 4.0 10/23/16 17:54 142/53 10/23/16 17:50 70 10/23/16 17:22 95 Nasal Cannula 4.0 10/23/16 17:22 36.3 81 20 136/91 83 Room Air 10/23/16 17:22 83 Room Air 10/23/16 17:20 136/91 Physical Exam General Appearance: WD/WN, + mild distress (mildly labored breathing without accessory muscle use), + obese Eyes: sclerae normal ENT: hearing grossly normal Neck: supple, no JVD, trachea midline Respiratory/Chest: lungs clear, no respiratory distress, no accessory muscle use, + decreased breath sounds Cardiovascular: regular rate, rhythm, no gallop, no murmur Abdomen: normal bowel sounds, non tender, soft Extremities: + swelling (chronic stasis findings) Neurologic/Psychiatric: alert, oriented x 3 Skin: normal color, warm/dry Laboratory Results Last 24 Hours Test 10/23/16 17:31 10/23/16 18:24 10/24/16 07:00 10/24/16 11:40 White Blood Count 7.61 K/uL 6.40 K/uL Red Blood Count 4.52 M/uL 4.22 M/uL Hemoglobin 13.0 g/dL 12.4 g/dL Hematocrit 41.0 % 38.4 % Mean Corpuscular Volume 90.7 fL 91.0 fL Mean Corpuscular Hemoglobin 28.8 pg 29.4 pg Mean Corpuscular Hemoglobin Concent 31.7 g/dl 32.3 g/dl Platelet Count 168 K/uL 154 K/uL Mean Platelet Volume 9.5 fL 9.5 fL Neutrophils (%) (Auto) 86.4 % 76.5 % Lymphocytes (%) (Auto) 6.4 % 11.6 % Monocytes (%) (Auto) 5.5 % 9.5 % Eosinophils (%) (Auto) 0.9 % 1.7 % Basophils (%) (Auto) 0.3 % 0.5 % Neutrophils # (Auto) 6.57 K/uL 4.90 K/uL Lymphocytes # (Auto) 0.49 K/uL 0.74 K/uL Monocytes # (Auto) 0.42 K/uL 0.61 K/uL Eosinophils # (Auto) 0.07 K/uL 0.11 K/uL Basophils # (Auto) 0.02 K/uL 0.03 K/uL RDW Standard Deviation 57.3 fL 57.5 fL RDW Coefficient of Variation 17.3 % 17.2 % Immature Granulocyte % (Auto) 0.5 % 0.2 % Immature Granulocyte # (Auto) 0.04 K/uL 0.01 K/uL Prothrombin Time 12.6 SECONDS Prothromb Time International Ratio 1.2 Activated Partial Thromboplast Time 29.4 SECONDS Partial Thromboplastin Ratio 1.1 Sodium Level 135 mmol/L 137 mmol/L Potassium Level 5.8 mmol/L 4.5 mmol/L Chloride Level 98 mmol/L 100 mmol/L Carbon Dioxide Level 30 mmol/L 30 mmol/L Anion Gap 7.0 mmol/L 7.0 mmol/L Blood Urea Nitrogen 36 mg/dl 29 mg/dl Creatinine 1.10 mg/dl 0.86 mg/dl Est Creatinine Clear Calc Drug Dose 68.6 ml/min 86.9 ml/min Estimated GFR () 58.1 78.2 Estimated GFR (Non- 50.1 67.5 BUN/Creatinine Ratio 32.5 33.7 Random Glucose 217 mg/dl 170 mg/dl Calcium Level 8.4 mg/dl 8.3 mg/dl Total Bilirubin 0.7 mg/dl Aspartate Amino Transf (AST/SGOT) 34 U/L Alanine Aminotransferase (ALT/SGPT) 44 U/L Alkaline Phosphatase 121 U/L Troponin I < 0.015 ng/ml Pro-B-Type Natriuretic Peptide 914 pg/ml Total Protein 6.7 gm/dl Albumin 3.2 gm/dl Globulin 3.5 gm/dl Albumin/Globulin Ratio 0.9 Bedside Troponin I 0.010 ng/ml Bedside Glucose 155 mg/dl Assessment and Plan SOB: Community Acquired Pneumonia with Chronic Diastolic CHF: - CXR on admission with evidence of worsening congestion and has received Lasix 40 mg IV x 1 dose - Daily weights and I & O - Lasix 40 mg po daily - Levaquin 750 mg po daily - Flovent, Ventolin, and Duoneb treatments - Mucinex BID and Nasal Saline as signs of sinusitis with post-nasal drip may be contributing Generalized Weakness and Ambulatory Dysfunction: - General deconditioning related to recent pneumonia - PT/OT - recommending acute rehab -- Patient is in agreement for rehab at this time Atrial Flutter: Rate Controlled - Diltiazem 240 mg daily and Metoprolol 50 mg daily - Xarelto 20 mg daily T2DM: - Hold Metformin - Insulin administration per pharmacy recommendations with adjustments as indicated Chronic Lower Extremity Lymphadenopathy: - Patient may utilize fitted compression stockings DVT Prophylaxis: - Xarelto Code Status: - FULL RESUSCITATION Disposition: - Acute rehab placement Continued [facility] stay due to: ambulation difficulties Discharge planning: rehab hospital
[2016-10-24] MEDS: RIVAROXABAN 10 MG TAB PO SCH (17:18)
[2016-10-24] MEDS: GUAIFENESIN 600 MG TABCR PO SCH (21:42)
[2016-10-24] MEDS: LEVOFLOXACIN 750 MG TAB PO SCH (21:42)
[2016-10-25] MEDS: LEVOTHYROXINE 50 MCG TAB PO SCH (06:10)
[2016-10-25 07:23] VITALS: BP 160/78; PULSE 81; TEMP 36.6; O2SAT 98
[2016-10-25] MEDS: ALBUT/IPRATROP 3MG/0.5MG NEB 3 ML VIAL INH SCH ×4 (07:45→19:25)
[2016-10-25] MEDS: INSULIN GLARGINE SOLOSTAR 100 UNITS/ML 3 ML PEN SC SCH ×2 (08:00→21:06)
[2016-10-25 08:04] VITALS: PULSE 74; O2SAT 95
[2016-10-25 08:42] LABS: HEMATOCRIT 40.1 % (37-47); MEAN CELL VOLUME 90.7 fL (80-100); MEAN CORPUSCULAR HEMOGLOBIN 28.7 pg (25-34); MEAN CORPUSCULAR HGB CONC 31.7 g/dl (32-36); MEAN PLATELET VOLUME 9.6 fL (7.4-10.4); PLATELET COUNT 138 K/uL (130-400); RED BLOOD COUNT 4.42 M/uL (4.2-5.4); WHITE BLOOD COUNT 5.89 K/uL (4.8-10.8)
[2016-10-25 09:09] LABS: BUN/CREATININE RATIO 24.7 (10-20); CALCIUM 8.5 mg/dl (8.5-10.1); CREATININE 0.88 mg/dl (0.60-1.20); POTASSIUM 4.8 mmol/L (3.5-5.1)
[2016-10-25] MEDS: CEROVITE ADV FORMULA TAB PO SCH (09:30)
[2016-10-25] MEDS: GUAIFENESIN 600 MG TABCR PO SCH ×2 (09:30→21:03)
[2016-10-25] MEDS: SERTRALINE HCL 50 MG TAB PO SCH (09:30)
[2016-10-25] MEDS: METOPROLOL SUCC 50MG EXT REL TAB PO SCH (09:30)
[2016-10-25] MEDS: DILTIAZEM HCL 240 MG CAPCR PO SCH (09:31)
[2016-10-25] MEDS: ALLOPURINOL 100 MG TAB PO SCH (09:31)
[2016-10-25] MEDS: ATORVASTATIN 40 MG TAB PO SCH (09:31)
[2016-10-25] MEDS: MAGNESIUM OXIDE 400 MG TAB PO SCH (09:31)
[2016-10-25] MEDS: CHOLECALCIFEROL 1000 INTER.UNIT TAB PO SCH (09:31)
[2016-10-25] MEDS: FLUTICASONE HFA 110MCG INHALER INH SCH ×2 (09:32→21:02)
[2016-10-25] MEDS: FUROSEMIDE 40 MG TAB PO SCH (09:36)
[2016-10-25] MEDS: INSULIN ASPART 100 UNITS/ML 3 ML PEN SC SCH ×4 (09:44→21:06)
[2016-10-25] MEDS: ALPRAZOLAM 0.5 MG TAB PO PRN (10:16)
[2016-10-25 11:50] VITALS: PULSE 78; O2SAT 97
--- NOTE | 2016-10-25 14:46 | Pharmacy Progress Note ---
Glycemic Control: Progress Nt Date of Service Oct 25, 2016. Scope Glycemic Pharmacist consulted by Dr Hernandez on 10/23/16 for glycemic control and to write orders per [facility] inpatient glycemic control protocol. Objective Accuchecks BSG (last 24hrs): Test 10/24/16 16:34 10/24/16 20:25 10/25/16 08:30 Bedside Glucose 145 mg/dl (70-90) 149 mg/dl (70-90) Random Glucose 140 mg/dl (70-99) Laboratory Data (last 24hrs) Test 10/25/16 08:30 Anion Gap 6.0 mmol/L BUN/Creatinine Ratio 24.7 Blood Urea Nitrogen 22 mg/dl Creatinine 0.88 mg/dl Potassium Level 4.8 mmol/L Sodium Level 137 mmol/L White Blood Count 5.89 K/uL Recent Pertinent Medications Outpatient Anti-diabetic Regimen: * Humalog Mix 75/25 * 80 units SQ BID * Metformin 1000mg PO BID * A1c = 6.8% 09/29/16 The patient is currently receiving: * Basal insulin: Lantus 0-20 units every 12 hours based on BSG * 0 units if </= 120mg/dL * 15 units if 121-179mg/dL * 20 units if >/=180mg/dL * Correctional Insulin: NovoLog Correction per scale AC/HS Goal Range: Low 120 mg/dL - High 160 mg/dL Correction Factor: 20 mg/dL/unit * Prandial insulin: Per carb ratio of 1 unit per 7 grams CHO consumed * Oral Agents: held on admission Risk Factors for Insulin Resistance: * Infection: Levofloxacin PO (from outpatient Rx) * Diet: T2DM Assessment & Plan ASSESSMENT: * ADA & AACE recommend a goal blood sugar range 140-180 mg/dl for the majority of critically ill & non-critically ill patients. However, more stringent targets may be selected in individual cases. 10/24/16 * 71 y/o type 2 diabetic with recent admission for UTI/Pnx * Home diabetes regimen includes mixed insulin and metformin * change to Lantus/NovoLog while admitted for ease of titration * hold metformin on admission * Derive Lantus/NovoLog doses from weight based insulin calculator as Ms. Arellano' s regimen is quite aggressive and during her last stay, she did not require as much insulin as compare to an outpatient * A1c is current * 6.8% may either indicate great control or the possible presence of hypoglycemia 10/25/16 * BSGs pretty well controlled, although Lantus was held this AM for parameters. I will loosen these parameters so that patient will continue to get Lantus for BSG 100-119mg/dL PLAN FOR INPATIENT GLYCEMIC CONTROL: * Lantus SQ q 12 hours * 0 units if < 100mg/dL * 15 units if 121-179mg/dL * 20 units if >/=180mg/dL * NovoLog AC and HS * Correction factor: 20mg/dL/unit * Carb ratio: 1 unit per 7g of CHO consumed * Goal range: 120-160mg/dL * A1c - current * added to discharge instructions * Please note that the plan above was derived based on current level of insulin resistance and hospital stress. These recommendations are appropriate for inpatient admission only. Plan of care upon discharge will need to be reassessed to avoid potential outpatient hypo/hyperglycemia. Thank you.
[2016-10-25 15:53] VITALS: PULSE 75; O2SAT 96
--- NOTE | 2016-10-25 16:24 | Progress Note ---
Subjective Date of Service: Oct 25, 2016. Subjective Pt evaluation today including: conversation w/ patient, conversation w/ family ( at bedside), physical exam, chart review, lab review, review of inpatient medication list Patient seen and evaluated. No acute events overnight. Extensive discussion at bedside of approx. 45-60 minutes. Discussion with nursing staff about moving patient as patient tenses and holds her breath. She continues to report feelings of anxiousness. Discussed these feelings with her which reveals fear of falling as she did have a fall in the past resulting in a concussion. As she is fearful since she is on Xarelto. Further discussion significant for feelings of depression however patient initially denied depression. She expresses sadness due to of close friends , family members with Alzheimers, and limited mobility. These feels have been recently exacerbated due to the fatigue and weakness brought on by recent PNA and UTI. She says she hasn't discussed these feeling with her as she doesn't want to burden him with it. And she feels that she has been more anxious and that it is contributing to her SOB. She kept reiterating that she thought she had a handle on everything but feels that she does not. Was upset upon admission due to incontinence and embarrassment. Offered continued reassurance as to not be embarrassed by that event. Continued to enforce that pneumonia requires a long recovery. She expresses that several years back when she had surgery she didn't feel her normal self for 3 months and explained that it could take that long or longer. She has been more physically active here in the hospital then she has been at home. She reports that she sleeps in a lift chair and has less than 10 feet to walk to go to the bathroom and ambulation is largely limited as was suspected. After this discussion she does feel that when she was initially discharged she did get anxious. She says she was excited to go home and felt ready but when it was time to leave the multiple fears got the best of here. She is in agreement that she needs rehab and agrees to pursue this option. Problem List Medical Problems: (1) Abdominal pain, epigastric Status: Acute (2) Acute bronchitis Status: Acute (3) Bleeding Status: Acute (4) Failure of outpatient treatment Status: Acute (5) Generalized weakness Status: Acute (6) Pneumonia Status: Acute (7) Sinusitis Status: Acute (8) SOB (shortness of breath) Status: Acute Review of Systems Constitutional: No chills, No fever ENT: + nasal symptoms (improving), No sore throat Respiratory: + cough, + dyspnea on exertion, No shortness of breath Cardiac: No chest pain Abdomen: No constipation, No diarrhea, No nausea, No pain, No vomiting Musculoskeletal: + swelling (chronic - denies that legs have worsened ) Female : No dysuria Psychiatric: + anxiety, + depression symptoms Heme: No abnormal bleeding/bruising Endo: No fatigue Skin: No rash Medications Current Inpatient Medications Medications (Trade) Dose Ordered Sig/Johnnie Route Start Time Stop Time Status Last Admin Dose Admin Albuterol (Ventolin Hfa Inhaler) 2 puffs Q4 PRN INH 10/23/16 20:30 11/22/16 20:29 Allopurinol (Zyloprim Tab) 100 mg DAILY PO 10/24/16 08:00 11/23/16 08:59 10/25/16 09:31 100 MG Alprazolam (Xanax Tab) 0.5 mg BID PRN PO 10/23/16 20:30 11/22/16 20:29 10/25/16 10:16 0.5 MG Atorvastatin Calcium (Lipitor Tab) 40 mg QAM PO 10/24/16 08:00 11/23/16 08:59 10/25/16 09:31 40 MG Fluticasone Propionate (Flovent Hfa 110MCG Inhaler) 2 puffs BID INH 10/23/16 21:00 11/22/16 20:59 10/25/16 09:32 2 PUFFS Furosemide (Lasix Tab) 40 mg QAM PO 10/24/16 08:00 11/23/16 08:59 10/25/16 09:36 40 MG Hydroxyzine HCl (Vistaril Tab) 25 mg Q8 PRN PO 10/23/16 20:30 11/22/16 20:29 Levofloxacin (Levaquin Tab) 750 mg DAILY@2200 PO 10/23/16 22:00 10/28/16 22:01 10/24/16 21:42 750 MG Levothyroxine Sodium (Synthroid Tab) 50 mcg DAILYBB PO 10/24/16 06:30 11/23/16 06:59 10/25/16 06:10 50 MCG Magnesium Oxide (Mag-Ox Tab) 400 mg DAILY PO 10/24/16 08:00 11/23/16 08:59 10/25/16 09:31 400 MG Multivitamins/ Minerals (Multivitamin W/ Minerals Tab) 1 tab QAM PO 10/24/16 08:00 11/23/16 08:59 10/25/16 09:30 1 TAB Rivaroxaban (Xarelto Tab) 20 mg QDD PO 10/24/16 17:00 11/23/16 17:59 10/24/16 17:18 20 MG Sertraline HCl (Zoloft Tab) 50 mg DAILY PO 10/24/16 08:00 11/23/16 08:59 10/25/16 09:30 50 MG Triamcinolone Acetonide (Kenalog 0.5% Crm) 1 appln DAILY PRN EXT 10/23/16 20:30 11/22/16 20:29 Cholecalciferol (Vitamin D Tab) 2,000 inter.unit DAILY PO 10/24/16 08:00 11/23/16 08:59 10/25/16 09:31 2,000 INTER.UNIT Diltiazem HCl (Cardizem Cd Cap) 240 mg DAILY PO 10/24/16 08:00 11/23/16 08:59 10/25/16 09:31 240 MG Miscellaneous Information (Order Awaiting Action) 1 ea QS N/A 10/24/16 00:00 11/23/16 00:00 Metoprolol Succinate (Toprol Xl Tab) 100 mg DAILY PO 10/24/16 08:00 11/23/16 08:59 10/25/16 09:30 100 MG Albuterol/ Ipratropium (Duoneb) 3 ml QIDR INH 10/24/16 08:00 11/23/16 07:59 10/25/16 15:53 3 ML Acetaminophen (Tylenol Tab) 650 mg Q4H PRN PO 10/23/16 20:30 11/22/16 20:29 Al Hydrox/Mg Hydrox/Simethicone (Maalox Max Susp) 15 ml Q4H PRN PO 10/23/16 20:30 11/22/16 20:29 Magnesium Hydroxide (Milk Of Magnesia Susp) 30 ml Q6H PRN PO 10/23/16 20:30 11/22/16 20:29 Polyethylene (Miralax Powder Packet) 17 gm DAILY PRN PO 10/23/16 21:15 11/22/16 21:14 10/24/16 20:05 17 GM Ondansetron HCl (Zofran Inj) 4 mg Q6H PRN IV 10/23/16 20:30 11/22/16 20:29 Insulin Aspart (novoLOG ASPART) SLIDING SCALE If C... ACHS SC 10/23/16 21:00 11/22/16 20:59 10/25/16 13:35 12 UNITS Glucose (Glucose 40% Gel) 15-30 GRAMS 15 GRAMS... UD PRN PO 10/23/16 20:30 11/22/16 20:29 Glucose (Glucose Chew Tab) 4-8 Tablets 4 Tabl... UD PRN PO 10/23/16 20:30 11/22/16 20:29 Dextrose (Dextrose 50% 50ML Syringe) 25-50ML OF 50% DW IV FOR... UD PRN IV 10/23/16 20:30 11/22/16 20:29 Glucagon (Glucagon Inj) 1 mg UD PRN SQ 10/23/16 20:30 11/22/16 20:29 Miscellaneous Information (Consult Glycemic Management Pharmacy) 1 ea UD PRN N/A 10/23/16 21:10 11/22/16 21:09 Insulin Glargine (Lantus Solostar Pen) SEE PROTOCOL TEXT BID SC 10/23/16 22:00 11/22/16 21:59 10/24/16 21:46 15 UNIT Guaifenesin (Mucinex Contr Rel Tab) 1,200 mg Q12 PO 10/24/16 21:00 11/23/16 20:59 10/25/16 09:30 1,200 MG Sodium Chloride ([place] Nasal [place]) 2 sprays Q6H PRN CHRISTINA 10/24/16 10:30 11/23/16 10:29 Objective Vital Signs Date Time Temp Pulse Resp B/P Pulse Ox O2 Delivery O2 Flow Rate FiO2 10/25/16 15:53 75 18 96 Nasal Cannula 3.0 10/25/16 12:43 Nasal Cannula 3.0 10/25/16 11:50 78 18 97 Nasal Cannula 3.0 10/25/16 08:04 74 18 95 Nasal Cannula 3.0 10/25/16 07:23 36.6 81 20 160/78 98 Nasal Cannula 3.0 10/25/16 00:00 Nasal Cannula 3.0 10/24/16 23:04 36.5 77 24 158/78 97 Nasal Cannula 3.0 10/24/16 19:26 73 20 97 Nasal Cannula 3.0 10/24/16 16:06 77 20 98 Nasal Cannula 3.0 Physical Exam General Appearance: WD/WN, + obese, + pertinent finding (affect flat; appears depressed with intermittent tearing) Eyes: sclerae normal ENT: hearing grossly normal Neck: supple, no JVD, trachea midline Respiratory/Chest: lungs clear, no respiratory distress, no accessory muscle use, + decreased breath sounds Cardiovascular: regular rate, rhythm, no gallop, no murmur Abdomen: normal bowel sounds, non tender, soft Extremities: no calf tenderness, + pertinent finding (large edematous legs with chronic stasis dermatitis ) Neurologic/Psychiatric: alert, oriented x 3 Skin: normal color, warm/dry Laboratory Results Last 24 Hours Test 10/24/16 16:34 10/24/16 20:25 10/25/16 08:30 Bedside Glucose 145 mg/dl 149 mg/dl White Blood Count 5.89 K/uL Red Blood Count 4.42 M/uL Hemoglobin 12.7 g/dL Hematocrit 40.1 % Mean Corpuscular Volume 90.7 fL Mean Corpuscular Hemoglobin 28.7 pg Mean Corpuscular Hemoglobin Concent 31.7 g/dl RDW Standard Deviation 57.1 fL RDW Coefficient of Variation 17.2 % Platelet Count 138 K/uL Mean Platelet Volume 9.6 fL Sodium Level 137 mmol/L Potassium Level 4.8 mmol/L Chloride Level 99 mmol/L Carbon Dioxide Level 32 mmol/L Anion Gap 6.0 mmol/L Blood Urea Nitrogen 22 mg/dl Creatinine 0.88 mg/dl Est Creatinine Clear Calc Drug Dose 84.9 ml/min Estimated GFR () 76.1 Estimated GFR (Non- 65.6 BUN/Creatinine Ratio 24.7 Random Glucose 140 mg/dl Calcium Level 8.5 mg/dl Magnesium Level 2.0 mg/dl Assessment and Plan SOB: Community Acquired Pneumonia with Chronic Diastolic CHF: - Daily weights and I & O - Lasix 40 mg po daily - Levaquin 750 mg po daily - Flovent, Ventolin, and Duoneb treatments - Mucinex BID and Nasal Saline Generalized Weakness and Ambulatory Dysfunction: Deconditioning - PT/OT - recommending acute rehab -- Patient is in agreement for rehab at this time Anxiety/Depression: - Patient expresses ongoing feelings of depression with increased anxiety - Xanax 0.5 mg PRN - May benefit from an SSRI - will defer to PCP to allow for proper institution and monitoring Atrial Flutter: Rate Controlled - Diltiazem 240 mg daily and Metoprolol 50 mg daily - Xarelto 20 mg daily T2DM: - Hold Metformin - Insulin administration per pharmacy recommendations with adjustments as indicated Chronic Lower Extremity Lymphadenopathy: - Patient may utilize fitted compression stockings DVT Prophylaxis: - Xarelto Code Status: - FULL RESUSCITATION Disposition: - Acute rehab placement - [facility] - Patient is medically suitable for discharge - psychologically is unsure of her ambulatory abilities -- Will discuss and reassure her that this is the necessary step and ultimately the sooner this can be implemented to more beneficial -- Patient is very minimally ambulatory at home Continued [facility] stay due to: ambulation difficulties Discharge planning: rehab hospital
[2016-10-25 16:43] VITALS: BP 157/73; PULSE 76; TEMP 36.6; O2SAT 90
[2016-10-25] MEDS ORDERED: NURSING DECISION MEDICATION ORDER SCH (17:45)
[2016-10-25] MEDS: RIVAROXABAN 10 MG TAB PO SCH (17:50)
[2016-10-25 19:25] VITALS: PULSE 77; O2SAT 96
[2016-10-25] MEDS: MICONAZOLE NITRATE POWDER 43 GM EXT SCH (21:03)
[2016-10-25] MEDS: LEVOFLOXACIN 750 MG TAB PO SCH (21:03)
[2016-10-26] VITALS (7 sets, daily range): BP systolic 142–147; BP diastolic 75–78; PULSE 73–96; TEMP 36.4–36.9; O2SAT 96–98
[2016-10-26] MEDS: LEVOTHYROXINE 50 MCG TAB PO SCH (06:31)
[2016-10-26] MEDS: ALBUT/IPRATROP 3MG/0.5MG NEB 3 ML VIAL INH SCH ×3 (07:15→15:15)
[2016-10-26] MEDS ORDERED: INSULIN GLARGINE SOLOSTAR 100 UNITS/ML 3 ML PEN SC SCH (08:00)
--- NOTE | 2016-10-26 08:23 | Pharmacy Progress Note ---
Glycemic Control: Progress Nt Date of Service Oct 26, 2016. Scope Glycemic Pharmacist consulted by Dr Hernandez on 10/23/16 for glycemic control and to write orders per [facility] inpatient glycemic control protocol. Objective Accuchecks BSG (last 24hrs): Test 10/25/16 08:30 10/25/16 16:50 10/25/16 20:14 10/26/16 07:31 Random Glucose 140 mg/dl (70-99) Bedside Glucose 134 mg/dl (70-90) 147 mg/dl (70-90) 116 mg/dl (70-90) Laboratory Data (last 24hrs) Test 10/25/16 08:30 Anion Gap 6.0 mmol/L BUN/Creatinine Ratio 24.7 Blood Urea Nitrogen 22 mg/dl Creatinine 0.88 mg/dl Potassium Level 4.8 mmol/L Sodium Level 137 mmol/L White Blood Count 5.89 K/uL HbA1c: 6.8% 09/29/16 Recent Pertinent Medications Outpatient Anti-diabetic Regimen: * Humalog 75/25 mix 80 units SQ BID * Metformin 1gm PO BID * A1c = 6.8 % 09/29/16 The patient is currently receiving: * Basal insulin: Lantus Q 12 hours * 0 units if < 100mg/dL * 15 units if 121-179mg/dL * 20 units if >/=180mg/dL * Correctional Insulin: Novolog Correction per scale ACHS Goal Range: Low 120 mg/dL - High 160 mg/dL Correction Factor: 20 mg/dL/unit * Prandial insulin: Per carb ratio of 1 unit per 7 grams CHO consumed * Oral Agents: None currently Risk Factors for Insulin Resistance: * Infection: on Levofloxacin for UTI * Pressors: n/a * Diet: ordered T2DM diet and tolerating well per carb counts Assessment & Plan ASSESSMENT: 10/26/16 * Glycemic control acceptable at this time * Patient is tolerating the ordered diet, consuming 3 meals per day * She appears to require 40-50 units per day with current diet and stressors. Much less than out-pt regimen. Question compliance with insulin regimen? Compliance with diet? * Will convert the Lantus dose to a stable regimen rather than relying on a sliding scale. * Novolog CF and CR performed well thus far, will continue the same PLAN FOR INPATIENT GLYCEMIC CONTROL: * Changing Lantus to 12 units SQ BID - hold if BSG less than 100 * Continuing correction factor of 20 mg/dl/unit * Continuing carb ratio of 1 unit per 7 grams CHO consumed * Continuing goal range of Low 120 mg/dL - High 160 mg/dL RECOMMENDATIONS FOR DISCHARGE: * If discharged to halfway facility would continue the above inpatient regimen for Lantus and Novolog * If discharged to home and patient is to resume Humalog 75/25, I would be hesitant to restart her home regimen despite the apparent good control based on A1c results. Would instead recommend giving 75/25 34 units w/ breakfast + 17 units with dinner. * Please note that the plan above was derived based on current level of insulin resistance and hospital stress. These recommendations are appropriate for inpatient admission only. Plan of care upon discharge will need to be reassessed to avoid potential outpatient hypo/hyperglycemia. Thank you.
[2016-10-26] MEDS: MICONAZOLE NITRATE POWDER 43 GM EXT SCH (08:50)
[2016-10-26] MEDS: ATORVASTATIN 40 MG TAB PO SCH (08:51)
[2016-10-26] MEDS: ALLOPURINOL 100 MG TAB PO SCH (08:51)
[2016-10-26] MEDS: METOPROLOL SUCC 50MG EXT REL TAB PO SCH (08:51)
[2016-10-26] MEDS: CEROVITE ADV FORMULA TAB PO SCH (08:51)
[2016-10-26] MEDS: CHOLECALCIFEROL 1000 INTER.UNIT TAB PO SCH (08:51)
[2016-10-26] MEDS: FUROSEMIDE 40 MG TAB PO SCH (08:51)
[2016-10-26] MEDS: GUAIFENESIN 600 MG TABCR PO SCH (08:51)
[2016-10-26] MEDS: FLUTICASONE HFA 110MCG INHALER INH SCH (08:52)
[2016-10-26] MEDS: DILTIAZEM HCL 240 MG CAPCR PO SCH (08:52)
[2016-10-26] MEDS: MAGNESIUM OXIDE 400 MG TAB PO SCH (08:52)
[2016-10-26] MEDS: SERTRALINE HCL 50 MG TAB PO SCH (08:52)
[2016-10-26] MEDS: INSULIN ASPART 100 UNITS/ML 3 ML PEN SC SCH ×2 (08:58→12:59)
[2016-10-26] MEDS ORDERED: MCTP EXT (09:16)
[2016-10-26] MEDS ORDERED: LVQ750 PO (09:16)
[2016-10-26] MEDS ORDERED: GFNSR600 PO (09:16)
[2016-10-26] MEDS ORDERED: INSU75IN2 SC ×2 (09:16)
[2016-10-26] MEDS ORDERED: SALI0.6510 NAE (09:16)
--- NOTE | 2016-10-26 09:33 | Discharge Instructions ---
Discharge Instructions Admission Reason for Admission: Weakness Discharge Discharge Diagnosis / Problem: Weakness due to Community Acquired Pneumonia Discharge Goals Goal(s): Decrease discomfort, Improve function, Increase independence Activity Recommendations Activity Level: Assistance Required Therapies: Physical Therapy, Occupational Therapy Lifting Limitations: none Exercise/Sports Limitations: gradually increase as tolerated Shower/Bathe: no limitations . Additional Information Patient informed of condition: Yes Advance Directives: Yes DNR: No Level of Care: Acute Rehab Communicable Disease: No Prognosis: Improving Oxygen at (LPM): 3 L Continuous Marino Catheter: No Instructions / Follow-Up Instructions / Follow-Up SOB: Community Acquired Pneumonia with Chronic Diastolic CHF: - Initial CXR upon admission significant for congestion -- Repeat CXR on discharge with evidence of R pleural effusion with some improvement - Continue Lasix 40 mg po daily and follow a low-sodium diet -- Patient does have does take Lasix 20 mg PRN in addition to the daily 40 mg which may be beneficial to utilize -- Patient does have edematous lower extremities that are baseline and due to lymphedema and utilizes compression stockings - Continue Levaquin 750 mg po daily x 3 more days as this will finish a 10 day course - Continue home inhalers as prescribed - Mucinex 1200 mg BID x 3 more days and Nasal Saline as needed for nasal congestion - Continue incentive spirometry Generalized Weakness and Ambulatory Dysfunction: Deconditioning from Illness and Anxiety - Continue Zoloft 50 mg daily Xanax 0.5 mg PRN as she is more anxious due to fear of falling and rapid decrease in health - May benefit from and increase in Zoloft but would defer to PCP as patient has stopped taking this before and would not recommend dose increase at this time Atrial Flutter: Rate Controlled - Continue Diltiazem 240 mg daily and Metoprolol 50 mg daily - Continue Xarelto 20 mg daily T2DM: A1C 6.8 - Per recommendations of pharmacy - patient has utilized less insulin while admitted then prescribed for home use - Continue Metformin 1000 mg BID - Change Humalog 75/25 to 34 units SC with breakfast and 17 units SC with dinner Chronic Lower Extremity Lymphadenopathy: - Patient may utilize fitted compression stockings - would encourage more frequent utilization Code Status: - FULL RESUSCITATION Disposition: - Patient utilizes lift chair at home and sleeps in lift chair. Baseline is ambulatory normally with a cane but with limited distance needed to ambulate to bathroom. - Lives with who assists with needs. - Utilizes continuous O2 at 3 L - Patient was admitted initially with CXR consistent with pneumonia and a pansensitive E. coli UTI and has been treated with Levaquin and needs 3 more days to complete a 10 day course. She is afebrile without leukocytosis and hemodynamically stable. She was discharged home as she did not want home services at that time. Unfortunately presented to the ED that same night due to SOB and weakness which may have an element of deconditioning and anxiety as she did get did develop increased palpitations and reports feelings of anxiousness. Has a tendency to hold her breath when doing movements. Encouraged to take slow controlled breaths. Reassurance given as patient may take some time to recover from the pneumonia. Recommend further encouragement and positive thinking. Current Hospital Diet Patient's current hospital diet: Diabetes Type 2 Diet Discharge Diet Recommended Diet: Low Sodium Diet (2gm Na), Diabetes Type 2 Diet Pending Studies Studies pending at discharge: no Laboratory Results Hemoglobin A1c Test 09/29/16 10:15 Range/Units Estimated Average Glucose 148 mg/dl Hemoglobin A1c 6.8 H 4.5-5.6 % Medical Emergencies . Who to Call and When: Medical Emergencies: If at any time you feel your situation is an emergency, please call 911 immediately. . Non-Emergent Contact Non-Emergency issues call your: Primary Care Provider Call Non-Emergent contact if: you have a fever, your pain is concerning you, you have any medication questions . . "Provider Documentation" section prepared by Nevaeh Garcia. Core Measure Problem Core Measures: None
--- NOTE | 2016-10-26 09:55 | DIAGNOSTIC IMAGING REPORT ---
CHEST 2 VIEWS ROUTINE CLINICAL HISTORY: CHF dyspnea COMPARISON STUDY: No previous studies for comparison. FINDINGS: Right pleural effusion. Moderate cardiac megaly. Mild congestive failure. Slight radiographic improvement from the prior study. IMPRESSION: Congestive failure. Right pleural effusion. Minimal improvement radiographically from the prior study. Electronically signed by: Richie Bowen M.D. 10/26/2016 9:53 AM Dictated Date/Time: 10/26/2016 9:44 AM
[2016-10-26] MEDS ORDERED: FURO-85 PO (10:11)
[2016-10-26] MEDS: ALPRAZOLAM 0.5 MG TAB PO PRN (13:01)
--- NOTE | 2016-10-26 15:49 | Discharge Summary ---
Discharge Summary Admission Date: Oct 23, 2016 at 20:34 Discharge Date: Oct 26, 2016 Discharge Disposition: Rehab Principal Diagnosis: Community Acquired Pneumonia and Generalized Weakness Immunizations: Have You Had Influenza Vaccine: Unknown Influenza Vaccine Date: Jul 25, 2012 History of Tetanus Vaccine?: Unknown History of Pneumococcal: Unknown History of Hepatitis B Vaccine: Unknown Procedures: CHEST 2 VIEWS ROUTINE CLINICAL HISTORY: CHF dyspnea COMPARISON STUDY: No previous studies for comparison. FINDINGS: Right pleural effusion. Moderate cardiac megaly. Mild congestive failure. Slight radiographic improvement from the prior study. IMPRESSION: Congestive failure. Right pleural effusion. Minimal improvement radiographically from the prior study. Consultations: 1. PT/OT Medication Reconciliation New Medications: Furosemide (Lasix) 20 Mg Tab 20 MG PO DAILY PRN for Shortness of Breath, #10 TAB May take as needed in addition to daily Furosemide at least 6 hours after that dose Insulin Lispro Protamine & Lis (Humalog Mix 75/25 Kwikpen) 1 Inj Inj 17 UNITS SC DAILYBD for 15 Days Guaifenesin Ext Rel (Mucinex Ext Rel) 600 Mg Tabcr 1200 MG PO Q12 for 3 Days Miconazole Nitrate (Desenex Shake Powder) 43 Appln/43 Gm Powd 1 APPLN EXT BID for 14 Days Saline ([place] Walk Nasal Jeannette) 0.65 % Spr 2 SPRAYS CHRISTINA Q6H PRN for Nasal Congestion for 7 Days Changed Medications: Insulin Lispro Protamine & Lis (Humalog Mix 75/25 Kwikpen) 1 Inj Inj 34 UNITS SC DAILYBB, #15 (Changed from: 80 UNITS; Q12) Levofloxacin (Levofloxacin) 750 Mg Tab 750 MG PO DAILY for 3 Days, TAB (Changed from: 6) Start today (10/26/16). Continued Medications: Albuterol Hfa (Ventolin Hfa) 200 Puffs/50739 Mcg Aers 2 PUFFS INH Q4 PRN for SOB/Wheezing, #1 INHALER Albuterol Sulf (Albuterol Sulfate) 2.5 Mg/3 Ml Nebu 1 UNIT PO Q4 PRN for SOB/Wheezing Allopurinol (Zyloprim) 100 Mg Tab 100 MG PO DAILY AT 1200, TAB Alprazolam (Xanax) 0.5 Mg Tab 0.5 MG PO BID PRN for Anxiety, TAB Atorvastatin (Lipitor) 40 Mg Tab 40 MG PO QAM, TAB Cholecalciferol (Vitamin D3) 2,000 Unit Tab 2000 INTER.UNIT PO DAILY, TAB 3 Refills Diltiazem Hcl Extended Release (Diltiazem Hcl) 240 Mg Cap 240 MG PO QAM Eflornithine Hcl (Vaniqa) 13.9 % Cre 1 APPLN TOP BID PRN for Hirsutism, GM APPLY AND GENTLY MASSAGE INTO AFFECTED AREA. Fluticasone Propionate (Flovent Hfa) 120 Puffs/94946 Mcg Aero 2 PUFFS INH BID for 7 Days, #1 INHALER 0 Refills Furosemide (Lasix) 40 Mg Tab 40 MG PO QAM, TAB TAKES 20MG IN ADDITION PRN Hydroxyzine Hcl (Atarax) 25 Mg Tab 25 MG PO Q8 PRN for Itching, TAB Levothyroxine Sodium (Levothyroxine Sodium) 50 Mcg Tab 50 MCG PO QAM Magnesium Oxide (Mag-Ox) 400 Mg Tab 400 MG PO DAILY AT NOON, TAB Metformin Hcl (Glucophage) 1,000 Mg Tab 1000 MG PO BID, TAB Metoprolol Succinate (Metoprolol Succinate ER) 100 Mg Tabcr 100 MG PO QAM Multiple Vitamins W/ Minerals (Centrum Silver Adult 50+) 1 Tab Tab 1 TAB PO QAM Oxygen (Oxygen) Gas 3 LITERS NA CONTINOUS USES NEEDED Rivaroxaban (Xarelto) 20 Mg Tab 20 MG PO QPM, TAB Sertraline HCl (Sertraline HCl) 50 Mg Tab 50 MG PO DAILY, #30 Triamcinolone Acet (Triamcinolone Acetonide) 45 Appln/15 Gm Cr 1 APPLN TOP PRN UD, #30 Discharge Exam Review of Systems: Constitutional: No chills, No fever Eyes: No worsening of vision ENT: + nasal symptoms, No sore throat, No trouble swallowing Respiratory: + cough, + dyspnea on exertion, No shortness of breath Cardiovascular: No chest pain Abdomen: No constipation, No diarrhea, No nausea, No pain, No vomiting Musculoskeletal: + swelling (bilat LE edema chronic), No calf pain Genitourinary - Female: No dysuria Endocrine: No fatigue Hematologic / Lymphatic: No abnormal bleeding/bruising, No clotting problems Integumentary: + problem reported (scattered ecchymosis), + rash (abdominal folds) Hospital Course ADMISSION: This is a 71-year-old female who presents to Emergency Room complaining of worsening shortness of breath that started 4 hours before she came to Emergency Room. As per patient and her , she was discharged today from [facility]. Their main complaint actually the fact that when she came home, she could not walk. She was hospitalized for 5 days and she feels weak and tired. During her hospitalization, she was diagnosed with pneumonia and UTI and she is currently finishing Levaquin. The patient states that she felt good with physical therapies and was comfortable with going home. Today, her helped her out of the car and she was really weak and she had trouble getting into the house and she was scared that she would fall and she felt palpitations while she was walking. The patient used 3 liters of oxygen all the time, but she did not wear it while she was moving from the car into the house. She denies fever, diarrhea, change of mental status, swelling. HOSPITAL COURSE: Ms. Arellano was initially admitted on 10/19/16 and discharged on 10/23/16 for community acquired pneumonia and pansensitive E. coli UTI. She was evaluated by PT/OT which recommended acute rehab however patient denied rehab and home services. She returned home, unfortunately she was readmitted later that evening. Per patient she reports she felt ready to return home but when she was trying to leave she had difficulty getting into the car and reports high anxiety and required a lot of assistance. When she arrived at home she had a lot of SOB and anxiety which resulted in feelings of palpitations. She was not wearing her oxygen at the time and an ambulance was called. She was noted to be hypoxic and was readmitted. Initial CXR revealed congestion and was given Lasix 40 mg IV x 1 dose and diuresed. She was then resumed on her home dose of Lasix 40 mg po daily. Antibiotics were continued as prescribed on previous admission. PT evaluations were initiated and patient was in agreement that an acute rehab was necessary. After a long discussion patient expressed feelings of depression and recent anxiety. She states that she has been depressed for a while now and not as active as she used to be. She reports multiple social stressors due to family/friend deaths and limited mobility. These feelings have been exacerbated since a previous fall and now this pneumonia. As objectively patient shows anxiety with even simple tasks in regards to moving and ambulating as she will hold her breath. She does fear falling due to Xarelto use. She may benefit from an increased dose of her Zoloft however patient reports poor compliance with this medication. She does not discuss these feelings with her as she does not want to burden him. She reports that she sleeps in a lift chair and reports minimal need to ambulate as bathroom is about 10 feet away. She reports she doesn't frequently leave the house. It appears that she has been slowly deconditioning over time due to possible depression and with this recent PNA and UTI. She was discharged to [facility] for acute rehab. Recommendations given to increase to Lasix 60 mg daily initially to help with further diuresis and then normal dosing continued. Again on previous admission she was experiencing hyperkalemia and Lisinopril was discontinued. This may need to be reinstituted pending further evaluation. Insulin regimen was also adjusted as patient's needs were less then home dosing. However I am sure home diet is largely different then here we did adjust medications at this time. As well, A1C was 6.8 suggesting good control or frequent hypoglycemic episodes. She was continued on Metformin BID but Novolog 75/25 adjusted to 34 units at breakfast and 17 units with dinner. She is afebrile, without leukocytosis, and hemodynamically stable. She is adequate for discharge to [facility]. Total Time Spent: Greater than 30 minutes This includes examination of the patient, discharge planning, medication reconciliation, and communication with other providers. Discharge Instructions Please refer to the electronic Patient Visit Report (Discharge Instructions) for additional information. [facility]; Raymond Fierro M.D.
[2016-11-20] MEDS ORDERED: MCRK20 PO (13:32)
[2016-11-20] MEDS ORDERED: TPRSR50 PO (13:32)
[2016-11-20] MEDS ORDERED: INSDGIPEN SC (13:32)
[2016-11-20] MEDS ORDERED: BMX1 PO (13:32)
[2017-02-09] MEDS ORDERED: METO1TAB69 PO (23:41)
[2017-02-16] MEDS ORDERED: ALPR1TAB3 PO (08:08)
[2017-02-16] MEDS ORDERED: CPR500 PO (08:08)
[2017-02-16] MEDS ORDERED: MCRK20 PO (08:08)
[2017-02-16] MEDS ORDERED: MCRB100 PO (08:08)
[2017-02-16] MEDS ORDERED: BMX1 PO ×2 (08:08→15:01)
[2017-02-16] MEDS ORDERED: XRL20 PO (08:10)
[2017-03-13] MEDS ORDERED: CLIN300C2 PO (12:33)
== END 2016-10-26 16:00 | DRG 291 ==
LOC: ENRESERVDT → ENRESERVTM → C.EDB 17:09 → EDBD 17:09 → C.MS4W 20:34 → UNDOADMIN 22:03
PROVIDERS: ADMIT Hospitalist; ATTEND Hospitalist
DX: I50.33 Acute on chronic diastolic (congestive) heart failure (principal); J18.9 Pneumonia, unspecified organism; N39.0 Urinary tract infection, site not specified; I48.92 Unspecified atrial flutter; Z68.44 Body mass index [BMI] 60.0-69.9, adult; I48.91 Unspecified atrial fibrillation; B96.20 Unspecified Escherichia coli [E. coli] as the cause of diseases classified elsewhere; E03.9 Hypothyroidism, unspecified; F32.9 Major depressive disorder, single episode, unspecified; E66.01 Morbid (severe) obesity due to excess calories; F41.9 Anxiety disorder, unspecified; R59.1 Generalized enlarged lymph nodes; R26.9 Unspecified abnormalities of gait and mobility; R53.1 Weakness; E11.9 Type 2 diabetes mellitus without complications; I11.0 Hypertensive heart disease with heart failure; Z91.128 Patient's intentional underdosing of medication regimen for other reason; Z79.4 Long term (current) use of insulin; Z99.81 Dependence on supplemental oxygen; Z79.01 Long term (current) use of anticoagulants; Z79.899 Other long term (current) drug therapy

== ENCOUNTER 2016-11-08 09:11 | Inpatient (IN) | payer OTHER ==
[2016-11-08] VITALS (7 sets, daily range): BP systolic 117–150; BP diastolic 65–79; PULSE 84–110; TEMP 36.4–36.6; O2SAT 89–95; BMI 63.6
[~2016-11-08] VITALS: Ht 157.5 cm; Wt 161.0 kg
[~2016-11-08 09:11] MED LIST changes: +FURO-85 PO; +GFNSR600 PO; -LISI-461 PO; +MCTP EXT; +SALI0.6510 NAE
[2016-11-08] MEDS ORDERED: LEVAQUIN 750MG / 150ML D5W IV STA (09:48)
[2016-11-08] MEDS ORDERED: ALBUT/IPRATROP 3MG/0.5MG NEB 3 ML VIAL INH STA (09:48)
[2016-11-08 10:42] LABS: BASO % 0.4 %; BASO ABS # 0.03 K/uL (0-0.2); COMPLETE YES; EOS % 1.3 %; IG% 0.6 %; LYMPH % 10.7 %; LYMPH ABS # 0.77 K/uL (1.2-3.4); MEAN CELL VOLUME 92.8 fL (80-100); MEAN CORPUSCULAR HGB CONC 31.2 g/dl (32-36); MEAN PLATELET VOLUME 9.8 fL (7.4-10.4); MONO % 8.2 %; NEUT % 78.8 %; PLATELET COUNT 179 K/uL (130-400); RED BLOOD COUNT 4.42 M/uL (4.2-5.4); WHITE BLOOD COUNT 7.18 K/uL (4.8-10.8)
[2016-11-08 10:54] LABS: INR 1.2 (0.9-1.1); PARTIAL THROMBOPLASTIN RATIO 1.2; PROTHROMBIN TIME (PATIENT) 13.1 SECONDS (9.0-12.0)
--- NOTE | 2016-11-08 11:00 | DIAGNOSTIC IMAGING REPORT ---
CHEST ONE VIEW PORTABLE HISTORY: Short of breath. COMPARISON: Chest 10/26/2016. FINDINGS: Mild to moderate pulmonary edema has progressed. The heart remains enlarged. Moderate right and small left pleural effusions persist. No acute rib fractures. IMPRESSION: Progressive mild to moderate pulmonary edema. Bilateral pleural effusions persist. Electronically signed by: Raz Hayden M.D. 11/08/2016 10:58 AM Dictated Date/Time: 11/08/2016 10:57 AM
[2016-11-08 11:16] LABS: ALB/GLOB RATIO 0.9 (0.9-2); ALKALINE PHOSPHATASE 150 U/L (45-117); ALT/SGPT 31 U/L (12-78); AST/SGOT 32 U/L (15-37); BLOOD UREA NITROGEN 27 mg/dl (7-18); BUN/CREATININE RATIO 26.9 (10-20); CALCIUM 8.9 mg/dl (8.5-10.1); CARBON DIOXIDE 39 mmol/L (21-32); CHLORIDE 89 mmol/L (98-107); CKMB/CK RATIO 3.4 (0-3.0); CREATININE 0.99 mg/dl (0.60-1.20); GLUCOSE 164 mg/dl (70-99); POTASSIUM 4.5 mmol/L (3.5-5.1); SODIUM 136 mmol/L (136-145)
[2016-11-08] MEDS ORDERED: ALPR1TAB3 PO (11:19)
[2016-11-08] MEDS ORDERED: QVRINH80 INH (11:24)
[2016-11-08] MEDS ORDERED: DOCU-94 PO (11:26)
[2016-11-08] MEDS ORDERED: HYDCR1CL TOP (11:28)
[2016-11-08] MEDS ORDERED: NVLGI/PEN SC (11:31)
[2016-11-08] MEDS ORDERED: HMLI7525 SC ×2 (11:38)
[2016-11-08] MEDS ORDERED: GLC/500 PO (11:40)
[2016-11-08] MEDS ORDERED: FUROSEMIDE 40 MG/4 ML VIAL IV STA (12:05)
--- NOTE | 2016-11-08 13:02 | EMERGENCY ROOM VISIT NOTE ---
History Report prepared by Jose: Matilda Oliveros Under the Supervision of: Dr. Moiz Rao D.O. First contact with patient: 09:43 Chief Complaint: RESPIRATORY DISTRESS Stated Complaint: SOB Nursing Triage Summary: Pt arrives ALS from [facility] Resp distress since yesterday recurring pnx Pt 77% on RA, wears 3L all the time C02 was 90 for EMS BLE cellulitis which is chronic History of Present Illness The patient is a 71 year old female who presents to the Emergency Room with complaints of persistent respiratory distress that began yesterday. Per records , the patient was recently evaluated in the hospital from October 23- for generalized weakness. She was diagnosed with pneumonia and placed on Levaquin and discharged to [facility]. Today, the patient again notes generalized weakness in her bilateral arms and legs that began yesterday. She states that she started becoming short of breath yesterday. The patient's notes that the patient's symptoms appear similar to when she was previously evaluated in the hospital. Source of History: patient, spouse/significant other () Onset: yesterday Position: other (global) Quality: other (respiratory distress) Timing: other (persistent) Associated Symptoms: + weakness Review of Systems See HPI for pertinent positives & negatives. A total of 10 systems reviewed and were otherwise negative. Past Medical & Surgical Medical Problems: (1) Acquired lymphedema (2) Atrial flutter (3) CHF exacerbation (4) Diab W Oth Coma, Type I [Juvenile Type], Uncontrolled (5) Diabetes mellitus type 2, uncontrolled (6) Endometrial cancer (7) Epistaxis (8) Hypertension Nos (9) Hypertension Nos (10) Hypothyroidism (11) Morbid obesity (12) Obesity (13) Sciatica (14) Weakness Family History FH: Alzheimers disease Social History Smoking Status: Unknown if Ever Smoked Alcohol Use: none Drug Use: none Marital Status: Housing Status: lives with family Occupation Status: unemployed Current/Historical Medications Scheduled Allopurinol (Zyloprim), 100 MG PO DAILY AT 1200 Atorvastatin (Lipitor), 40 MG PO QPM Beclomethasone Dip (Qvar), 2 PUFFS INH BID Cholecalciferol (Vitamin D3), 2,000 INTER.UNIT PO DAILY Diltiazem Hcl Extended Release (Diltiazem Hcl), 240 MG PO QAM Docusate Sodium (Colace), 100 MG PO BID Furosemide (Lasix), 40 MG PO QAM Hydrocortisone 1% (Hydrocortisone 1%), 1 APPL TOP BID Insulin Aspart (Novolog Flexpen), 1 DOSE SC ACHS Insulin Lispro 75/25 (Humalog Mix 75/25), 28 UNITS SC DAILY Insulin Lispro 75/25 (Humalog Mix 75/25), 38 UNITS SC DAILY Levothyroxine Sodium (Levothyroxine Sodium), 50 MCG PO QAM Magnesium Oxide (Mag-Ox), 400 MG PO DAILY AT NOON Metformin Hcl (Glucophage), 500 MG PO BIDM Metoprolol Succinate (Metoprolol Succinate ER), 100 MG PO QAM Miconazole Nitrate (Desenex Shake Powder), 1 APPLN EXT BID Multiple Vitamins W/ Minerals (Centrum Silver Adult 50+), 1 TAB PO QAM Oxygen (Oxygen), 3 LITERS NA CONTINOUS Rivaroxaban (Xarelto), 20 MG PO QPM Sertraline HCl (Sertraline HCl), 50 MG PO DAILY Scheduled PRN Alprazolam (Xanax), 1 MG PO BID PRN for Anxiety Eflornithine Hcl (Vaniqa), 1 APPLN TOP BID PRN for Hirsutism Allergies Coded Allergies: Mineral Oil (Verified Allergy, Intermediate, LEGS SWELL, 11/08/16) Penicillins (Verified Allergy, Intermediate, HIVES, 11/08/16) Petrolatum (Verified Allergy, Intermediate, LEGS SWELL, 11/08/16) Metronidazole (Unverified Allergy, Unknown, NAUSEA, 11/08/16) Uncoded Nonscreenable Allergen (Unverified Allergy, Unknown, FLAVONOIDS, ) Physical Exam Vital Signs Date Time Temp Pulse Resp B/P Pulse Ox O2 Delivery O2 Flow Rate FiO2 11/08/16 11:14 102 25 170/80 94 Nasal Cannula 4.0 11/08/16 10:44 107 30 93 Nasal Cannula 4.0 11/08/16 10:44 91 Nasal Cannula 3.0 11/08/16 09:52 91 11/08/16 09:17 36.7 95 30 177/81 88 Nasal Cannula 3.0 Physical Exam CONSTITUTIONAL/VITAL SIGNS: Reviewed / noted above. GENERAL: Significant generalized weakness. INTEGUMENTARY: Warm, dry, and [place]. HEAD: Normocephalic. EYES: without scleral icterus or trauma. ENT/OROPHARYNX: clear and moist. LYMPHADENOPATHY/NECK: Is supple without lymphadenopathy or meningismus. RESPIRATORY: Mild respiratory distress with increased work of breathing. CARDIOVASCULAR: Regular rate and rhythm. GI/ABDOMEN: Soft and nontender. No organomegaly or pulsatile mass. No rebound or guarding. Normal bowel sounds. EXTREMITIES: Bilateral lower extremity erythema and edema, likely chronic. BACK: No CVA tenderness. NEUROLOGICAL: Intact without focal deficits. PSYCHIATRIC: normal affect. MUSCULOSKELETAL: Normally developed with good muscle tone. Medical Decision & Procedures ER Provider Diagnostic Interpretation: X ray results and stated below per my interpretation and radiology interpretation. Laboratory Results 11/08/16 10:23 Red Blood Count 4.42, Mean Corpuscular Volume 92.8, Mean Corpuscular Hemoglobin 29.0, Mean Corpuscular Hemoglobin Concent 31.2, Mean Platelet Volume 9.8, Neutrophils (%) (Auto) 78.8, Lymphocytes (%) (Auto) 10.7, Monocytes (%) (Auto) 8.2, Eosinophils (%) (Auto) 1.3, Basophils (%) (Auto) 0.4, Neutrophils # (Auto) 5.66, Lymphocytes # (Auto) 0.77, Monocytes # (Auto) 0.59, Eosinophils # (Auto) 0.09, Basophils # (Auto) 0.03 11/08/16 10:23 Test 11/08/16 10:15 11/08/16 10:23 11/08/16 10:46 Influenza Type A Antigen Neg for Influ A (NEG) Influenza Type B Antigen Neg for Influ B (NEG) White Blood Count 7.18 K/uL (4.8-10.8) Red Blood Count 4.42 M/uL (4.2-5.4) Hemoglobin 12.8 g/dL (12.0-16.0) Hematocrit 41.0 % (37-47) Mean Corpuscular Volume 92.8 fL (80-100) Mean Corpuscular Hemoglobin 29.0 pg (25-34) Mean Corpuscular Hemoglobin Concent 31.2 g/dl (32-36) Platelet Count 179 K/uL (130-400) Mean Platelet Volume 9.8 fL (7.4-10.4) Neutrophils (%) (Auto) 78.8 % Lymphocytes (%) (Auto) 10.7 % Monocytes (%) (Auto) 8.2 % Eosinophils (%) (Auto) 1.3 % Basophils (%) (Auto) 0.4 % Neutrophils # (Auto) 5.66 K/uL (1.4-6.5) Lymphocytes # (Auto) 0.77 K/uL (1.2-3.4) Monocytes # (Auto) 0.59 K/uL (0.11-0.59) Eosinophils # (Auto) 0.09 K/uL (0-0.5) Basophils # (Auto) 0.03 K/uL (0-0.2) RDW Standard Deviation 58.2 fL (36.4-46.3) RDW Coefficient of Variation 17.2 % (11.5-14.5) Immature Granulocyte % (Auto) 0.6 % Immature Granulocyte # (Auto) 0.04 K/uL (0.00-0.02) Prothrombin Time 13.1 SECONDS (9.0-12.0) Prothromb Time International Ratio 1.2 (0.9-1.1) Activated Partial Thromboplast Time 32.1 SECONDS (21.0-31.0) Partial Thromboplastin Ratio 1.2 Anion Gap 6.0 mmol/L (3-11) Estimated GFR () 66.0 Estimated GFR (Non- 56.9 BUN/Creatinine Ratio 26.9 (10-20) Calcium Level 8.9 mg/dl (8.5-10.1) Total Bilirubin 0.9 mg/dl (0.2-1) Aspartate Amino Transf (AST/SGOT) 32 U/L (15-37) Alanine Aminotransferase (ALT/SGPT) 31 U/L (12-78) Alkaline Phosphatase 150 U/L (45-117) Total Creatine Kinase 44 U/L (26-192) Creatine Kinase MB 1.5 ng/ml (0.5-3.6) Creatine Kinase MB Ratio 3.4 (0-3.0) Troponin I < 0.015 ng/ml (0-0.045) Total Protein 7.5 gm/dl (6.4-8.2) Albumin 3.5 gm/dl (3.4-5.0) Globulin 4.0 gm/dl (2.5-4.0) Albumin/Globulin Ratio 0.9 (0.9-2) Lactic Acid Level 0.8 mmol/L (0.4-2.0) Laboratory results as stated above per my review. Medications Administered Medications (Trade) Dose Ordered Sig/Johnnie Route Start Time Stop Time Status Last Admin Dose Admin Albuterol/ Ipratropium (Duoneb) 3 ml NOW STAT INH 11/08/16 09:48 11/08/16 09:50 DC 11/08/16 09:48 3 ML Levofloxacin (Levaquin / D5W) 750 mg NOW STAT IV 11/08/16 09:48 11/08/16 09:50 DC 11/08/16 10:27 750 MG ECG Indication: SOB/dyspnea, weakness Rate (beats per minute): 91 Rhythm: atrial fibrillation Findings: no acute ischemic change, no ectopy ED Course 0947: Previous medical records were reviewed. The patient was evaluated in room B11B. A complete history and physical examination was performed. 0948: Ordered Levofloxacin 750 mg IV, DuoNeb 3 ml INH. 1203: I discussed the patients case with Dr. Campbell [facility]. He is going to evaluate the patient for further treatment. 1205: Ordered Lasix Inj 40 mg IV. 1208: I reevaluated the patient and she is resting. I discussed the exam findings with her and I discussed the treatment plan. She verbalized complete understanding and agreement. She will be evaluated for further treatment. Medical Decision Differential includes acute coronary syndrome, myocardial infarction, CVA, TIA, anemia, infection, pneumonia, UTI, pyelonephritis, poor nutrition, dehydration, electrolyte disturbance,hypoglycemia. This is a 71-year-old female who presents to the ED with a chief complaint of shortness of breath. The patient also reports weakness. She is weak all over. Her symptoms started yesterday. She was sent from [facility]. Saturations were 88% on 3 L of oxygen. This is what she is using. Respiratory rate was 30. She appears generally weak and has diminished breath sounds bilaterally with some crackles. Chest x-ray reveals some findings suggesting worsening mild to moderate pulmonary edema. BUN is 27. Troponin is negative. The patient was treated with IV Levaquin and DuoNeb treatment. She was given IV Lasix. The patient was told results. She is felt to be stable for Adel. I spoke with the hospitalist about the patient. Consults Time Called: 1159 Consulting Physician: MARY Chicas Returned Call: 1203 I discussed the patients case with MARY Chicas. He is going to evaluate the patient for further treatment. Impression Primary Impression: Congestive heart failure (CHF) Additional Impressions: Pneumonia Hypoxia Scribe Attestation The scribe's documentation has been prepared under my direction and personally reviewed by me in its entirety. I confirm that the note above accurately reflects all work, treatment, procedures, and medical decision making performed by me. Departure Information Dispostion Being Evaluated By Hospitalist Referrals Raymond Fierro M.D. (PCP) Problem Qualifiers
[2016-11-08] MEDS ORDERED: FLVHFA44 INH (13:29)
[2016-11-08] MEDS ORDERED: ACETAMINOPHEN 325 MG TAB PO PRN (13:30)
[2016-11-08] MEDS ORDERED: GLUCAGON FOR INJ 1 MG VIAL SQ PRN (13:30)
[2016-11-08] MEDS ORDERED: MAGNESIUM HYDROXIDE SUSP 30 ML UDC PO PRN (13:30)
[2016-11-08] MEDS ORDERED: POLYETHYLENE (MIRALAX) 17 GM PACK PO PRN (13:30)
[2016-11-08] MEDS ORDERED: GLUCOSE 40% GEL 15 GM TUBE PO PRN (13:30)
[2016-11-08] MEDS ORDERED: DEXTROSE 50% 50 ML SYR IV PRN (13:30)
[2016-11-08] MEDS ORDERED: GLUCOSE 10 TABS/TUBE PO PRN (13:30)
[2016-11-08] MEDS ORDERED: ALUMINUM/MAGNESIUM/SIMETH (MAALOX MAX) 30 ML UDC PO PRN (13:30)
--- NOTE | 2016-11-08 14:22 | History and Physical ---
History & Physical Date & Time of Service: Nov 08, 2016 at 13:42 Chief Complaint: SOB Primary Care Physician: Raymond Fierro M.D. History of Present Illness Source: patient, spouse ( at bedside) This is a 71 y/o female with a history of chronic diastolic CHF, a-flutter, HTN , HLD, DM II, lymphedema, hypothyroidism, depression and anxiety who presented to the ED on 11/08 with generalized weakness and shortness of breath. The patient was recently admitted to [facility] from October 23- with weakness and was found to have pneumonia. She was discharged to [facility]. The patient reports that yesterday when she arrived to physical therapy, she was not able to get herself out of the wheelchair, which she is usually able to do. She also noticed shortness of breath, dyspnea on exertion, and wheezing that started one day prior to arrival. She states that she feels palpitations when she is exerting herself. She also complains of orthopnea. The patient has chronic lymphedema in her lower extremities with chronic erythema and edema. She states that her legs appear to be at her baseline. She denies any recent weight gain, increase in sodium intake, or increased swelling in her legs. The patient denies fevers, chills, sweats, chest pain, claudication, cough, wheezing , shortness of breath, nausea, vomiting, abdominal pain, dysuria, hematuria, urinary retention, paralysis, weakness, numbness and tingling. Past Medical/Surgical History Medical Problems: (1) Acquired lymphedema Status: Chronic (2) Atrial flutter Status: Chronic (3) CHF exacerbation Status: Resolved (4) Diab W Oth Coma, Type I [Juvenile Type], Uncontrolled Status: Chronic (5) Diabetes mellitus type 2, uncontrolled Status: Chronic (6) Endometrial cancer Status: Resolved (7) Epistaxis Status: Resolved (8) Hypertension Nos Status: Chronic (9) Hypothyroidism Status: Chronic (10) Morbid obesity Status: Chronic (11) Obesity Status: Chronic (12) Sciatica Status: Chronic Family History FH: Alzheimers disease Hypertension Stroke Social History Smoking Status: Never Smoker Smokeless Tobacco Use: No Alcohol Use: none Drug Use: none Marital Status: Housing status: detention ([place]) Occupational Status: retired Immunizations History of Influenza Vaccine: Unknown Influenza Vaccine Date: Jul 25, 2012 History of Tetanus Vaccine?: Unknown History of Pneumococcal: Unknown History of Hepatitis B Vaccine: Unknown Multi-Drug Resistant Organisms History of MDRO: No Allergies Coded Allergies: Mineral Oil (Verified Allergy, Intermediate, LEGS SWELL, 11/08/16) Penicillins (Verified Allergy, Intermediate, HIVES, 11/08/16) Petrolatum (Verified Allergy, Intermediate, LEGS SWELL, 11/08/16) Metronidazole (Unverified Allergy, Unknown, NAUSEA, 11/08/16) Uncoded Nonscreenable Allergen (Unverified Allergy, Unknown, FLAVONOIDS, ) Home Medications Scheduled Allopurinol (Zyloprim), 100 MG PO DAILY AT 1200 Atorvastatin (Lipitor), 40 MG PO QPM Cholecalciferol (Vitamin D3), 2,000 INTER.UNIT PO DAILY Diltiazem Hcl Extended Release (Diltiazem Hcl), 240 MG PO QAM Docusate Sodium (Colace), 100 MG PO BID Fluticasone Propionate (Flovent Hfa), 1 PUFFS INH BID Furosemide (Lasix), 40 MG PO QAM Hydrocortisone 1% (Hydrocortisone 1%), 1 APPL TOP BID Insulin Aspart (Novolog Flexpen), 1 DOSE SC ACHS Insulin Lispro 75/25 (Humalog Mix 75/25), 80 UNITS SC BID Levothyroxine Sodium (Levothyroxine Sodium), 50 MCG PO QAM Magnesium Oxide (Mag-Ox), 400 MG PO DAILY AT NOON Metformin Hcl (Glucophage), 500 MG PO BIDM Metoprolol Succinate (Metoprolol Succinate ER), 100 MG PO QAM Miconazole Nitrate (Desenex Shake Powder), 1 APPLN EXT BID Multiple Vitamins W/ Minerals (Centrum Silver Adult 50+), 1 TAB PO QAM Oxygen (Oxygen), 3 LITERS NA CONTINOUS Rivaroxaban (Xarelto), 20 MG PO QPM Sertraline HCl (Sertraline HCl), 50 MG PO DAILY Scheduled PRN Alprazolam (Xanax), 1 MG PO BID PRN for Anxiety Eflornithine Hcl (Vaniqa), 1 APPLN TOP BID PRN for Hirsutism Review of Systems Constitutional: + fatigue, + weakness, No chills, No fever, No sweats Eyes: + problem reported (poor vision, chronic), No discharge, No eye pain, No redness ENT: + problem reported (reports copious post nasal drip), No hearing loss, No sore throat, No trouble swallowing Respiratory: + dyspnea on exertion, + shortness of breath, + wheezing, No cough , No sputum Cardiovascular: + orthopnea, + palpitations (with exertion), No PND, No chest pain, No claudication Abdomen: No nausea, No pain, No vomiting Musculoskeletal: No calf pain, No joint pain, No muscle pain Genitourinary - Female: No dysuria, No hematuria, No urinary retention Neurologic: No numbness/tingling, No paralysis, No weakness Integumentary: + problem reported (chronic bilateral lower extremity lymphedema ), No color change, No itch, No rash Physical Exam Vital Signs Date Time Temp Pulse Resp B/P Pulse Ox O2 Delivery O2 Flow Rate FiO2 11/08/16 13:31 92 28 134/42 95 Nasal Cannula 4.0 11/08/16 11:14 102 25 170/80 94 Nasal Cannula 4.0 11/08/16 10:44 107 30 93 Nasal Cannula 4.0 11/08/16 10:44 91 Nasal Cannula 3.0 11/08/16 09:52 91 11/08/16 09:17 36.7 95 30 177/81 88 Nasal Cannula 3.0 General Appearance: WD/WN, + mild distress, + obese (morbidly obese) Head: normocephalic, atraumatic Eyes: normal inspection, PERRL, EOMI ENT: normal ENT inspection, hearing grossly normal, pharynx normal Neck: supple, no JVD, trachea midline Respiratory/Chest: normal breath sounds, + respiratory distress (mild), + decreased breath sounds, + accessory muscle use Cardiovascular: regular rate, rhythm, no gallop, no murmur Abdomen/GI: normal bowel sounds, non tender, soft Extremities/Musculoskelatal: no calf tenderness, + swelling (non pitting edema , chronic), + pertinent finding (erythema lower extremities bilaterally, chronic ) Neurologic/Psych: alert, normal mood/affect, oriented x 3, + pertinent finding (periods of confusion, pt does not remember coming to hospital) Skin: normal color, warm/dry, no rash Diagnostics Laboratory Results Results Past 24 Hours Test 11/08/16 09:48 2/23/17 10:15 11/08/16 10:23 11/08/16 10:46 Range/Units Creatine Kinase MB Ratio 3.4 0-3.0 Influenza Type A Antigen Neg for Influ A NEG Influenza Type B Antigen Neg for Influ B NEG White Blood Count 7.18 4.8-10.8 K/uL Red Blood Count 4.42 4.2-5.4 M/uL Hemoglobin 12.8 12.0-16.0 g/dL Hematocrit 41.0 37-47 % Mean Corpuscular Volume 92.8 80-100 fL Mean Corpuscular Hemoglobin 29.0 25-34 pg Mean Corpuscular Hemoglobin Concent 31.2 32-36 g/dl Platelet Count 179 130-400 K/uL Mean Platelet Volume 9.8 7.4-10.4 fL Neutrophils (%) (Auto) 78.8 % Lymphocytes (%) (Auto) 10.7 % Monocytes (%) (Auto) 8.2 % Eosinophils (%) (Auto) 1.3 % Basophils (%) (Auto) 0.4 % Neutrophils # (Auto) 5.66 1.4-6.5 K/uL Lymphocytes # (Auto) 0.77 1.2-3.4 K/uL Monocytes # (Auto) 0.59 0.11-0.59 K/uL Eosinophils # (Auto) 0.09 0-0.5 K/uL Basophils # (Auto) 0.03 0-0.2 K/uL RDW Standard Deviation 58.2 36.4-46.3 fL RDW Coefficient of Variation 17.2 11.5-14.5 % Immature Granulocyte % (Auto) 0.6 % Immature Granulocyte # (Auto) 0.04 0.00-0.02 K/uL Prothrombin Time 13.1 9.0-12.0 SECONDS Prothromb Time International Ratio 1.2 0.9-1.1 Activated Partial Thromboplast Time 32.1 21.0-31.0 SECONDS Partial Thromboplastin Ratio 1.2 Sodium Level 136 136-145 mmol/L Potassium Level 4.5 3.5-5.1 mmol/L Chloride Level 89 98-107 mmol/L Carbon Dioxide Level 39 21-32 mmol/L Anion Gap 6.0 3-11 mmol/L Blood Urea Nitrogen 27 7-18 mg/dl Creatinine 0.99 0.60-1.20 mg/dl Estimated GFR () 66.0 Estimated GFR (Non- 56.9 BUN/Creatinine Ratio 26.9 10-20 Random Glucose 164 70-99 mg/dl Calcium Level 8.9 8.5-10.1 mg/dl Total Bilirubin 0.9 0.2-1 mg/dl Aspartate Amino Transf (AST/SGOT) 32 15-37 U/L Alanine Aminotransferase (ALT/SGPT) 31 12-78 U/L Alkaline Phosphatase 150 45-117 U/L Total Creatine Kinase 44 26-192 U/L Creatine Kinase MB 1.5 0.5-3.6 ng/ml Troponin I < 0.015 0-0.045 ng/ml Total Protein 7.5 6.4-8.2 gm/dl Albumin 3.5 3.4-5.0 gm/dl Globulin 4.0 2.5-4.0 gm/dl Albumin/Globulin Ratio 0.9 0.9-2 Lactic Acid Level 0.8 0.4-2.0 mmol/L Microbiology Results 11/08/16 Blood Culture, Received Pending 11/08/16 Blood Culture, Received Pending Diagnostic Radiology Reviewed the following studies and agree with interpretation as follows: Patient Name: MIKEL PIMENTEL Unit Number: [id number] Dictated: 11/08/[id number] Transcribed: 11/08/161056 [facility] Printed Date/Time: [~ rep prt dt]/[~ rep prt tm] [~ rep ct labl] - [~ rep ct ivnm] [facility] [place] [address] Dictated: 11/08/[id number] Transcribed: 11/08/161056 [facility] Printed Date/Time: [~ rep prt dt]/[~ rep prt tm] [~ rep ct labl] - [~ rep ct ivnm] Patient: MIKEL PIMENTEL Address1: [address] [facility] Rec: [id number] Address2: Acct ID: [id number] [facility] Zip: [place] [id number] Date: 1945 Sex: F Room/Bed: Ref Phy: Raymond Fierro M.D. SC: TYRON Att Phy: Report #: [id number] Tiny Phy: Raymond Fierro M.D. Test: CXR1P Admit Phy: Welder Experimental: SHERRON Interpreting Phy: Raz Hayden MD Diagnosis: SOB Ordering Phy: No Doctor, Assigned Service Date: 11/08/16 Admit Date: 11/08/16 MNE: [id number] CONF: DICTATED BY: Raz Hayden M.D.]] CC: Moiz Rao D.O. No Doctor, Assigned Raymond Fierro M.D. Endcc: [~ rep ct add3]] CHEST ONE VIEW PORTABLE HISTORY: Short of breath. COMPARISON: Chest 10/26/2016. FINDINGS: Mild to moderate pulmonary edema has progressed. The heart remains enlarged. Moderate right and small left pleural effusions persist. No acute rib fractures. IMPRESSION: Progressive mild to moderate pulmonary edema. Bilateral pleural effusions persist. Electronically signed by: Raz Hayden M.D. 11/08/2016 10:58 AM Dictated Date/Time: 11/08/2016 10:57 AM The status of this report is Signed. Draft = Not yet reviewed or approved by Radiologist. Signed = Reviewed and approved by Radiologist. <AttendingPhy></AttendingPhy> <FamilyPhy>Raymond Fierro M.D.</FamilyPhy> < PrimaryPhy>Raymond Fierro M.D.</PrimaryPhy> <UnitNumber>[id number]</UnitNumber > <VisitNumber>[id number]</VisitNumber> <PatientName>PIMENTELMIKEL</ PatientName> <DateOfBirth>1945</DateOfBirth> <Location>C.EDB</Location> < ServiceDate>11/08/16</ServiceDate> <MNE>ESINDI</MNE> <OrderingPhy>No Doctor, Assigned</OrderingPhy> <OrderingPhyMNE>f rep ord dr perez</OrderingPhyMNE> < DictatingPhyMNE>f rep dict mndanelle</DictatingPhyMNE> <CCListMNE>f rep ct mne</ CCListMNE> <AdmittingPhyMNE>f pt admit dr perez</AdmittingPhyMNE> <AttendingPhyMNE >f pt attend dr perez</AttendingPhyMNE> <ConsultingPhyMNE>f pt consult dr perez</ConsultingPhyMNE> <FamilyPhyMNE>f pt fam dr perez</FamilyPhyMNE> <OtherPhyMNE>f pt other dr perez</OtherPhyMNE> < PrimaryPhyMNE>f pt prim care dr perez</PrimaryPhyMNE> <ReferringPhyMNE>f pt referring dr perez</ReferringPhyMNE> EKG Reviewed EKG and agree with interpretation as follows: 91 bpm, AV dissociation and accelerated junctional rhythm w/frequent PVCs vs atrial fibrillation. Poor quality Impression Assessment and Plan 71 y/o female with a history of chronic diastolic CHF, a-flutter, HTN, HLD, DM II, lymphedema, hypothyroidism, depression and anxiety who presented to the ED on 11/08 with generalized weakness and shortness of breath. Pt on 3L continuous oxygen typically but was oxygenating at only 88%, so she was placed on 4L in the ED. CXR shows progressive moderate pulmonary edema. Flu negative. Cardiac enzymes negative x 1. Acute on chronic diastolic CHF, generalized weakness, SOB -Echocardiogram. Last study on record in 2013 -Lasix 40 mg IV BID -Marino catheter inserted. Pt refusing bed gauthier, cannot get up out of bed -Duonebs QIDR and q2h prn SOB/wheezing -Continue Flovent 1 puff inh BID -PT/OT evaluate and treat -Daily weights -Strict I/Os ?Atrial fibrillation, prolonged QT (666 ms). h/o a-flutter, on anticoagulation. +palpitations, no chest pain -Admit to telemetry for cardiac monitoring -Consult cardiology, appreciate recs -Repeat EKG now. Previous EKG poor quality. EKG q am and prn with chest pain -Trend cardiac enzymes q8h x 2 more sets -Continue diltiazem 240 mg PO qd -Continue Xarelto 20 mg PO qd HTN--stable -Continue metoprolol succinate 100 mg PO qd HLD -Continue atorvastatin 40 mg PO qd Diabetes mellitus type 2--Last HgbA1c checked 09/29/16 was 6.8 -Hold metformin and Humalog -Insulin sliding scale -Check BSGs q ac and qhs Hypothyroidism -Continue Synthroid 50 mcg PO qd Depression and anxiety -Continue sertraline 50 mg PO qd, alprazolam 1 mg PO BID prn anxiety DVT prophylaxis -Xarelto -SCDs Code Status -Level V, DO NOT RESUSCITATE I agree with PA assessment and plan and have seen and examined pt myself VSS Labs reviewed CXR reviewed Agree with ROS and PE findings Pt presents with likely CHF exacerbation Cont IV lasix at this time Level of Care Telemetry Resuscitation Status DO NOT RESUSCITATE VTE Prophylaxis VTE Risk Assessment Done? Y/N: Yes Risk Level: Moderate Given or contraindicated: Other Anticoagulation (Xarelto), SCD's
[2016-11-08] MEDS: ALBUT/IPRATROP 3MG/0.5MG NEB 3 ML VIAL INH SCH ×2 (16:28→19:00)
[2016-11-08] MEDS: INSULIN ASPART 100 UNITS/ML 3 ML PEN SC SCH ×2 (17:07→21:00)
[2016-11-08 19:08] LABS: CKMB/CK RATIO 3.6 (0-3.0)
[2016-11-08] MEDS: MICONAZOLE NITRATE POWDER 43 GM EXT SCH (21:24)
[2016-11-08] MEDS: FLUTICASONE PROP HFA INH 44 MCG INHALER INH SCH (21:24)
[2016-11-08] MEDS: ATORVASTATIN 40 MG TAB PO SCH (21:25)
[2016-11-08] MEDS: DOCUSATE SODIUM 100 MG CAP PO SCH (21:25)
[2016-11-08] MEDS: FUROSEMIDE INJ 40 MG in SYRINGE 0 ML IV SCH (21:25)
[2016-11-08] MEDS: RIVAROXABAN 20 MG TAB PO SCH (21:26)
[2016-11-09] VITALS (17 sets, daily range): BP systolic 106–158; BP diastolic 68–88; PULSE 86–110; TEMP 36.5–36.7; O2SAT 91–100
[2016-11-09] MEDS: ALBUT/IPRATROP 3MG/0.5MG NEB 3 ML VIAL INH SCH ×5 (00:34→19:00)
[2016-11-09 03:04] LABS: HEMATOCRIT 39.7 % (37-47); MEAN CELL VOLUME 94.5 fL (80-100); MEAN CORPUSCULAR HGB CONC 30.7 g/dl (32-36); PLATELET COUNT 165 K/uL (130-400); WHITE BLOOD COUNT 6.28 K/uL (4.8-10.8)
[2016-11-09 03:27] LABS: BLOOD UREA NITROGEN 24 mg/dl (7-18); CREATININE 0.86 mg/dl (0.60-1.20); GLUCOSE 188 mg/dl (70-99)
[2016-11-09 03:28] LABS: BUN/CREATININE RATIO 28.2 (10-20); CALCIUM 8.7 mg/dl (8.5-10.1); CARBON DIOXIDE 44 mmol/L (21-32); CHLORIDE 90 mmol/L (98-107); SODIUM 139 mmol/L (136-145)
[2016-11-09 03:29] LABS: CKMB/CK RATIO 3.4 (0-3.0)
[2016-11-09] MEDS ORDERED: NURSING VERBAL MED ORDER ONE (05:15)
--- NOTE | 2016-11-09 05:22 | Progress Note ---
Progress Note Date of Service Nov 09, 2016. Progress Note I was paged at approximately 03:48. Patient was noted to be complaining of shortness of breath. Nursing had auscultated lungs and did not hear any changes in lung findings. She did not appear to have more labored breathing compared to when she was first admitted to the floor. Vital signs are stable at this time. I gave the following instructions prior to my arrival: Obtain vital signs, I arrived at the bedside to assess shortly I arrived at the to the bedside to assess the patient: SUBJECTIVE: Patient notes being short of breath, but shortness of breath is no different than when she first arrived. She denies chest pain, palpitations, coughing. OBJECTIVE: - Vital signs reviewed in the EMR. VSS within normal limits Noted progressive increase in oxygen overnight from 4 L to 6 L - Gen. inspection: Patient awake, complains of mild discomfort due to breathing , denies pain - Cardiorespiratory exam Auscultation extremely challenging given patient's large body habitus Unable to appreciate crackles or wheezing in the lung figueroa Lower extremity chronic venous stasis swelling ASSESSMENT/PLAN: 71-year-old female with acute CHF exacerbation. Patient did receive 1 dose of 40 mg IV Lasix last night. Given persistent shortness of breath and stable renal function, I feel she can tolerate an additional 40 mg IV of Lasix now. Nurse instructed to administer a.m. dose of IV Lasix now. I will defer to day team as to whether additional Lasix is to be given today
[2016-11-09] MEDS: FUROSEMIDE INJ 40 MG in SYRINGE 0 ML IV SCH (05:25)
[2016-11-09] MEDS: LEVOTHYROXINE 50 MCG TAB PO SCH (05:27)
[2016-11-09] MEDS: FLUTICASONE PROP HFA INH 44 MCG INHALER INH SCH ×2 (07:36→20:40)
[2016-11-09] MEDS: MICONAZOLE NITRATE POWDER 43 GM EXT SCH ×2 (07:36→20:40)
[2016-11-09] MEDS: SERTRALINE HCL 50 MG TAB PO SCH (07:38)
[2016-11-09] MEDS: ALLOPURINOL 100 MG TAB PO SCH (07:38)
[2016-11-09] MEDS: METOPROLOL SUCC 50MG EXT REL TAB PO SCH (07:38)
[2016-11-09] MEDS: DILTIAZEM HCL 240 MG CAPCR PO SCH (07:38)
[2016-11-09] MEDS: DOCUSATE SODIUM 100 MG CAP PO SCH ×2 (07:38→20:39)
[2016-11-09] MEDS: MAGNESIUM OXIDE 400 MG TAB PO SCH (07:39)
[2016-11-09] MEDS: ALPRAZOLAM 0.5 MG TAB PO PRN (07:42)
[2016-11-09 08:25] LABS: ARTERIAL BLD GAS O2 SATURATION 86.9 % (90-95); ARTERIAL BLOOD GAS HCO3 46 mmol/L (19-24); ARTERIAL BLOOD GAS PO2 58 mm/Hg (80-95); ARTERIAL BLOOD GAS pH 7.33 (7.35-7.45)
[2016-11-09 08:32] LABS: ALLEN TEST POS (POS); O2 ADMINISTRATION 6L
[2016-11-09] MEDS: INSULIN ASPART 100 UNITS/ML 3 ML PEN SC SCH ×4 (09:19→20:50)
--- NOTE | 2016-11-09 10:10 | Clinical Documentation Query ---
QUERY 1 ON [address] MATTSON, In your clinical opinion is this patient being managed for: ( X ) Acute and chronic respiratory failure ( ) Other explanation of clinical findings (Please Explain) ( ) Unable to determine (Please Define) ( ) Need to Discuss ( ) Not Agree The medical record reflects the following clinical findings, treatment, and risk factors. Clinical Indicators: 71 yo female presenting with acute on chronic diastolic CHF. Presented with respiratory rate of 30 and noted increased work of breathing, O2 sat 88% on 3L (pt's chronic home level). Treatment: tele, increased O2 support, IV levaquin, IV lasix, duonebs, Daily wts, I/O, Risk Factors: acute diastolic CHF, morbid obesity QUERY 2 OF 2 In your clinical opinion is this patient being managed for: (X ) Chronic kidney disease, stage 2-3 ( ) Other explanation of clinical findings (Please Explain) ( ) Unable to determine (Please Define) ( ) Need to Discuss ( ) Not Agree The medical record reflects the following clinical findings, treatment, and risk factors. Clinical Indicators: Review of historical baseline GFR reveals range of 50.1-67.6 Treatment: monitor PRP's Risk Factors: A flutter/A fib, HTN, DM, diastolic CHF Please clarify and document your clinical opinion in the progress notes and discharge summary. Terms such as "probable", "suspected", "likely", "questionable", "possible", or "still to be ruled out" are acceptable. IF IN AGREEMENT, YOU MUST DOCUMENT ABOVE DIAGNOSTIC STATEMENT IN DAILY PROGRESS NOTES AND DISCHARGE SUMMARY. This document is not part of the patient's record. Thank You, Aida Palmer, RN [phone]
--- NOTE | 2016-11-09 10:13 | Clinical Documentation Query ---
QUERY 1 OF 2 CLINICAL DOCUMENTATION QUERY Ms. QUINN, In your clinical opinion is this patient being managed for: ( x) Acute and chronic respiratory failure ( ) Other explanation of clinical findings (Please Explain) ( ) Unable to determine (Please Define) ( ) Need to Discuss ( ) Not Agree The medical record reflects the following clinical findings, treatment, and risk factors. Clinical Indicators: 71 yo female presenting with acute on chronic diastolic CHF. Presented with respiratory rate of 30 and noted increased work of breathing, O2 sat 88% on 3L (pt's chronic home level). Treatment: tele, increased O2 support, IV levaquin, IV lasix, duonebs, Daily wts, I/O, Risk Factors: acute diastolic CHF, morbid obesity QUERY 2 OF 2 In your clinical opinion is this patient being managed for: ( x) Chronic kidney disease, stage 2-3 ( ) Other explanation of clinical findings (Please Explain) ( ) Unable to determine (Please Define) ( ) Need to Discuss ( ) Not Agree The medical record reflects the following clinical findings, treatment, and risk factors. Clinical Indicators: Review of historical baseline GFR reveals range of 50.1-67.6 Treatment: monitor PRP's Risk Factors: A flutter/A fib, HTN, DM, diastolic CHF Please clarify and document your clinical opinion in the progress notes and discharge summary. Terms such as "probable", "suspected", "likely", "questionable", "possible", or "still to be ruled out" are acceptable. IF IN AGREEMENT, YOU MUST DOCUMENT ABOVE DIAGNOSTIC STATEMENT IN DAILY PROGRESS NOTES AND DISCHARGE SUMMARY. This document is not part of the patient's record. Thank You, Aida Palmer, RN [phone]
--- NOTE | 2016-11-09 13:30 | ECHOCARDIOGRAM REPORT ---
*NOTICE TO RECEIVING DEMOCRAT AGENCY This information is strictly Confidential and protected under [place] law. [place] law prohibits you from making any further disclosure of this information unless further disclosure is expressly permitted by the written consent of the person to whom it pertains or is authorized by law. A general authorization for the release of medical or other information is not sufficient for this purpose. Hospital accepts no responsibility if the information is made available to any other person, INCLUDING THE PATIENT. Interpretation Summary * Name: MIKEL PIMENTEL Study Date: 11/09/2016 11:10 AM BP: 106/88 mmHg * Patient Location: C.2E\S\E205\S\1 HR: 110 * : 1945 (M/d/yyyy) Gender: Female Height: 62 in * Age: 71 yrs Ethnicity: CA Weight: 347 lb * Ordering Physician: Ariana Vital * Referring Physician: Esther Farris * Performed By: Sally Abraham RCS * * Reason For Study: CHF, Hx of A-Flutter * BSA: 2.4 m2 * -- Conclusions -- * 1. Normal left ventricular size with grossly normal systolic function. Estimated EF 55-60%. Cannot exclude wall motion abnormalities given poor image quality. No definite regional wall motion abnormalities noted. Moderate concentric left ventricular hypertrophy. * 2. Right ventricle not well visualized however, right ventricular systolic function appears to be mildly reduced. * 3. Moderate to severe mitral annular calcification. * 4. Poor image quality. * 5. Technically difficult study, enhanced somewhat with IV Definity. * 6. Mildly elevated right ventricular systolic pressure; estimated RVSP 39 mmHg. * 7. No significant change from prior study on 11/17/2013. Procedure Details * A complete two-dimensional transthoracic echocardiogram was performed (2D, M-mode, Doppler and color flow Doppler). * The study was technically difficult. * The study was technically limited. * There were technical limitations due to patient's poor acoustic windows secondary to severe lung disease, Body Habitus and Supine Positioning for imagining * A contrast injection of Definity was performed to improve assessment of LV function. * Contrast was injected into an intravenous site in the right arm. * One vial of Definity ultrasound contrast was diluted in normal saline to a total volume of 10 ml. A total of '2' ml of solution was administered during imaging. * Lot # [id number] of Definity utilized for procedure. * Expiration date . * The attending nurse who injected the contrast agent was Marc Dias RN. Left Ventricle * Normal left ventricular size with grossly normal systolic function. Estimated EF 55-60%. Cannot exclude wall motion abnormalities given poor image quality. No definite regional wall motion abnormalities noted. Moderate concentric left ventricular hypertrophy. Right Ventricle * The right ventricle is not well visualized. * The right ventricle is grossly normal size. * Right ventricle not well visualized however, right ventricular systolic function appears to be mildly reduced. Atria * The left atrial size is normal. * Right atrium not well visualized. * Borderline right atrial enlargement. * Inter atrial septum not well visualized. Mitral Valve * There is moderate to severe mitral annular calcification. * The mitral valve is not well visualized. * There is no mitral valve stenosis. * Significant mitral regurgitation is absent. Tricuspid Valve * The tricuspid valve is not well visualized. * There is no tricuspid stenosis. * Significant tricuspid regurgitation is absent. Aortic Valve * The aortic valve is not well visualized. * No hemodynamically significant valvular aortic stenosis. * There is no significant aortic regurgitation. Pulmonic Valve * The pulmonary valve is inadequately visualized, but the Doppler data is adequate for interpretation. * There is no pulmonic valvular stenosis. * There is no significant pulmonary regurgitation. Great Vessels * The aortic root is normal size. Pericardium/Pleural * There is no pericardial effusion. Great Vessels * Dilated IVC with reduced inspiratory collapse. MMode 2D Measurements and Calculations IVSd 1.4 cm LVIDd 4.5 cm LVIDs 3.1 cm LVPWd 1.4 cm IVS/LVPW 1.0 FS 31.1 % EDV(Teich) 93.6 ml ESV(Teich) 38.5 ml EF(Teich) 58.9 % EDV(cubed) 92.5 ml ESV(cubed) 30.3 ml EF(cubed) 67.2 % LV mass(C)d 248.3 grams LV mass(C)dI 102.8 grams/m\S\2 SV(Teich) 55.1 ml SI(Teich) 22.8 ml/m\S\2 SV(cubed) 62.2 ml SI(cubed) 25.8 ml/m\S\2 Ao root diam 3.3 cm Ao root area 8.8 cm\S\2 ACS 1.9 cm LA dimension 3.5 cm LA/Ao 1.0 LVLd ap2 7.2 cm LVLs ap2 6.4 cm Doppler Measurements and Calculations MV E max taty 115.2 cm/sec MV A max taty 109.7 cm/sec MV E/A 1.1 MV P1/2t max taty 138.1 cm/sec MV P1/2t 49.4 msec MVA(P1/2t) 4.5 cm\S\2 MV dec slope 818.9 cm/sec\S\2 MV dec time 0.14 sec Ao V2 max 149.1 cm/sec Ao max PG 9.0 mmHg Ao max PG (full) 6.7 mmHg LV V1 max PG 2.2 mmHg LV V1 max 74.6 cm/sec TV E max taty 63.6 cm/sec PA V2 max 81.7 cm/sec PA max PG 2.7 mmHg TR max taty 247.0 cm/sec RVSP(TR) 39.4 mmHg RAP systole 15.0 mmHg
--- NOTE | 2016-11-09 14:58 | Hospitalist Progress Note ---
Hospitalist Progress Note Date of Service Nov 09, 2016. (Ariana Vital ., OSIEL-C) Subjective Pt evaluation today including: conversation w/ patient, conversation w/ family ( at bedside), physical exam, chart review, lab review, review of inpatient medication list Voiding: montesinos catheter in place Overnight patient complained of SOB, Dr. Serna gave 9 am dose of Lasix early around 5 am. Patient still with SOB/CELAYA this morning. ABG had revealed pH of 7.33 and pCO2 of 89. Patient very lethargic, disoriented. As per nursing, patient had been saturating adequately on non-rebreather, then dropped to 60s when she took mask off and was on room air. Per nursing, patient is also drinking tons of water and asking for garcia. She complains of SOB, a non-productive cough, weakness and fatigue. The patient denies fevers, chills, sweats, chest pain, palpitations, claudication, cough, wheezing, shortness of breath, nausea, vomiting, abdominal pain, dysuria, hematuria, urinary retention, paralysis, weakness, numbness and tingling. Additional Comments: See HPI for pertinent positives and negatives. All other systems reviewed and negative. (Ariana Vital ., PA-C) Objective Vital Signs Date Time Temp Pulse Resp B/P Pulse Ox O2 Delivery O2 Flow Rate FiO2 11/09/16 12:00 Non-Rebreather 11/09/16 11:11 101 24 95 BiPAP/CPAP 60 11/09/16 10:44 36.7 100 20 158/84 97 BiPAP 11/09/16 09:48 108 94 60 11/09/16 09:48 108 28 94 BiPAP 60 11/09/16 08:00 Non-Rebreather 11/09/16 07:38 36.6 110 24 106/88 97 Non-Rebreather 15.0 11/09/16 06:55 110 24 100 Non-Rebreather 15.0 11/09/16 04:00 91 Nasal Cannula 6.0 11/09/16 03:51 36.5 110 26 144/68 91 Nasal Cannula 6.0 11/09/16 00:35 105 22 95 Nasal Cannula 5.0 11/09/16 00:01 95 Nasal Cannula 6.0 11/08/16 23:17 36.5 110 27 150/73 95 Nasal Cannula 6.0 11/08/16 20:26 36.4 101 25 150/65 94 Nasal Cannula 6.0 11/08/16 20:00 94 Nasal Cannula 6.0 11/08/16 19:00 84 18 94 Nasal Cannula 5.0 11/08/16 16:29 92 14 89 Nasal Cannula 5.0 11/08/16 16:00 92 Nasal Cannula 4.0 11/08/16 15:49 36.6 92 28 117/79 92 Nasal Cannula 4.0 (Ariana Vital ., PA-C) Physical Exam General Appearance: WD/WN, + mild distress (respiratory distress), + obese ( morbidly obese) Eyes: normal inspection, PERRL, sclerae normal ENT: normal ENT inspection, hearing grossly normal, + pertinent finding (exam limited due to mask, pt immediately drops to 60% O2 sat when removed) Neck: supple, no JVD, trachea midline Respiratory/Chest: + respiratory distress, + decreased breath sounds, + accessory muscle use Cardiovascular: no gallop, no murmur, + irregularly irregular Abdomen: normal bowel sounds, non tender, soft Extremities: non-tender, + swelling (non-pitting edema bilaterally), + pertinent finding (erythema, chronic lymphedema) Neurologic/Psychiatric: normal mood/affect, + disoriented, + pertinent finding (lethargic, able to answer some questions) Skin: normal color, warm/dry, no rash (Ariana Vital ., PA-C) Laboratory Results Last 24 Hours Test 11/08/16 15:57 11/08/16 18:25 11/08/16 20:29 11/09/16 02:34 Bedside Glucose 142 mg/dl 167 mg/dl Total Creatine Kinase 39 U/L 41 U/L Creatine Kinase MB 1.4 ng/ml 1.4 ng/ml Creatine Kinase MB Ratio 3.6 3.4 Troponin I < 0.015 ng/ml < 0.015 ng/ml White Blood Count 6.28 K/uL Red Blood Count 4.20 M/uL Hemoglobin 12.2 g/dL Hematocrit 39.7 % Mean Corpuscular Volume 94.5 fL Mean Corpuscular Hemoglobin 29.0 pg Mean Corpuscular Hemoglobin Concent 30.7 g/dl RDW Standard Deviation 59.5 fL RDW Coefficient of Variation 17.2 % Platelet Count 165 K/uL Mean Platelet Volume 10.0 fL Sodium Level 139 mmol/L Potassium Level 4.0 mmol/L Chloride Level 90 mmol/L Carbon Dioxide Level 44 mmol/L Anion Gap 4.0 mmol/L Blood Urea Nitrogen 24 mg/dl Creatinine 0.86 mg/dl Est Creatinine Clear Calc Drug Dose 87.0 ml/min Estimated GFR () 78.2 Estimated GFR (Non- 67.5 BUN/Creatinine Ratio 28.2 Random Glucose 188 mg/dl Calcium Level 8.7 mg/dl Test 11/09/16 06:49 11/09/16 08:07 11/09/16 11:24 11/09/16 14:42 Bedside Glucose 211 mg/dl 228 mg/dl Arterial Blood pH 7.33 Arterial Blood Partial Pressure CO2 89 mmHg Arterial Blood Partial Pressure O2 58 mm/Hg Arterial Blood HCO3 46 mmol/L Arterial Blood Oxygen Saturation 86.9 % Arterial Blood Base Excess 16.0 mEq/L Arterial Blood Gas Delivery 6L Shreyas Test POS (Ariana Vital ., OSIEL-C) Assessment and Plan 71 y/o female with a history of chronic diastolic CHF, a-flutter, HTN, HLD, DM II, lymphedema, hypothyroidism, depression and anxiety who presented to the ED on 11/08 with generalized weakness and shortness of breath. Pt on 3L continuous oxygen typically but was oxygenating at only 88%, so she was placed on 4L in the ED. CXR shows progressive moderate pulmonary edema. Flu negative. Cardiac enzymes negative x 1. Acute on chronic diastolic CHF, generalized weakness, SOB -Echocardiogram, results below: * 1. Normal left ventricular size with grossly normal systolic function. Estimated EF 55-60%. Cannot exclude wall motion abnormalities given poor image quality. No definite regional wall motion abnormalities noted. Moderate concentric left ventricular hypertrophy. * 2. Right ventricle not well visualized however, right ventricular systolic function appears to be mildly reduced. * 3. Moderate to severe mitral annular calcification. * 4. Poor image quality. * 5. Technically difficult study, enhanced somewhat with IV Definity. * 6. Mildly elevated right ventricular systolic pressure; estimated RVSP 39 mmHg. * 7. No significant change from prior study on 11/17/2013. -Lasix 40 mg IV BID. Hold any further Lasix today on 11/09 for now -Montesinos catheter inserted. Pt refusing bed gauthier, cannot get up out of bed -Duonebs QIDR and q2h prn SOB/wheezing -Continue Flovent 1 puff inh BID -PT/OT evaluate and treat -Daily weights -Strict I/Os -Place 2000 mL fluid restriction Acute on chronic respiratory failure -ABG: pH 7.33, pCO2 89, pO2 58, HCO3 46, O2 sat 86.9 -Placed on BIPAP -Repeat ABG 1500 ?Atrial fibrillation/a-flutter. h/o a-flutter, on anticoagulation -Admit to telemetry for cardiac monitoring -Pt had long QT on initial EKG, consulted cardiology. Corrected QT WNL, consult canceled. -EKG 11/09: 110 bpm, possible a-flutter vs SR with 1st degree AV block -Cardiac enzymes negative x 3 -Continue diltiazem 240 mg PO qd -Continue Xarelto 20 mg PO qd HTN--stable -Continue metoprolol succinate 100 mg PO qd HLD -Continue atorvastatin 40 mg PO qd Diabetes mellitus type 2--Last HgbA1c checked 09/29/16 was 6.8 -Hold metformin and Humalog -Insulin sliding scale -Check BSGs q ac and qhs CKD stage II--stable -Creatinine stable, at baseline -Continue to monitor Hypothyroidism -Continue Synthroid 50 mcg PO qd Depression and anxiety -Continue sertraline 50 mg PO qd, alprazolam 1 mg PO BID prn anxiety DVT prophylaxis -Xarelto -SCDs Code Status -Level V, DO NOT RESUSCITATE (Ariana Vital ., PA-C) I agree with PA assessment and plan Pt resting in bed, lethargic, somnolent Pt hypoxic on face mask Labs reviewed Cont with IV diuresis Pt noncompliant Will need trial of BiPAP (Gaetano Morgan D.OMohan)
[2016-11-09 15:28] LABS: ARTERIAL BLD GAS O2 SATURATION 92.8 % (90-95); ARTERIAL BLOOD GAS BASE EXCESS 17.7 mEq/L (-9-1.8); ARTERIAL BLOOD GAS HCO3 48 mmol/L (19-24); ARTERIAL BLOOD GAS PO2 71 mm/Hg (80-95); ARTERIAL BLOOD GAS pH 7.34 (7.35-7.45)
[2016-11-09 15:29] LABS: ALLEN TEST POS (POS); O2 ADMINISTRATION 60%
[2016-11-09] MEDS: RIVAROXABAN 20 MG TAB PO SCH (20:39)
[2016-11-09] MEDS: ATORVASTATIN 40 MG TAB PO SCH (20:39)
[2016-11-10] VITALS (19 sets, daily range): BP systolic 150–167; BP diastolic 71–84; PULSE 28–106; TEMP 36.5–36.6; O2SAT 40–96
[2016-11-10] MEDS: ALPRAZOLAM 0.5 MG TAB PO PRN ×2 (00:01→07:15)
[2016-11-10] MEDS: ALBUT/IPRATROP 3MG/0.5MG NEB 3 ML VIAL INH SCH ×5 (03:49→19:13)
[2016-11-10 06:16] LABS: HEMATOCRIT 42.4 % (37-47); MEAN CELL VOLUME 94.6 fL (80-100); MEAN CORPUSCULAR HEMOGLOBIN 28.6 pg (25-34); MEAN CORPUSCULAR HGB CONC 30.2 g/dl (32-36); MEAN PLATELET VOLUME 10.4 fL (7.4-10.4); PLATELET COUNT 186 K/uL (130-400); RED BLOOD COUNT 4.48 M/uL (4.2-5.4)
[2016-11-10] MEDS: LEVOTHYROXINE 50 MCG TAB PO SCH (06:28)
[2016-11-10 06:47] LABS: BUN/CREATININE RATIO 28.8 (10-20); CREATININE 0.91 mg/dl (0.60-1.20); POTASSIUM 4.6 mmol/L (3.5-5.1)
[2016-11-10] MEDS: INSULIN ASPART 100 UNITS/ML 3 ML PEN SC SCH ×4 (07:00→21:45)
[2016-11-10] MEDS: FLUTICASONE PROP HFA INH 44 MCG INHALER INH SCH ×2 (07:15→21:45)
[2016-11-10] MEDS: SERTRALINE HCL 50 MG TAB PO SCH (07:16)
[2016-11-10] MEDS: DOCUSATE SODIUM 100 MG CAP PO SCH ×2 (07:16→21:45)
[2016-11-10] MEDS: METOPROLOL SUCC 50MG EXT REL TAB PO SCH (07:16)
[2016-11-10] MEDS: DILTIAZEM HCL 240 MG CAPCR PO SCH (07:16)
[2016-11-10] MEDS: ALLOPURINOL 100 MG TAB PO SCH (07:16)
[2016-11-10] MEDS: MICONAZOLE NITRATE POWDER 43 GM EXT SCH ×2 (07:17→21:45)
[2016-11-10] MEDS: MAGNESIUM OXIDE 400 MG TAB PO SCH (07:17)
[2016-11-10] MEDS: FUROSEMIDE INJ 40 MG in SYRINGE 0 ML IV SCH ×2 (08:11→16:29)
[2016-11-10 09:36] LABS: ARTERIAL BLD GAS O2 SATURATION 93.1 % (90-95); ARTERIAL BLOOD GAS BASE EXCESS 15.6 mEq/L (-9-1.8); ARTERIAL BLOOD GAS HCO3 48 mmol/L (19-24); ARTERIAL BLOOD GAS PO2 76 mm/Hg (80-95); ARTERIAL BLOOD GAS pH 7.27 (7.35-7.45)
[2016-11-10 09:37] LABS: ALLEN TEST POS (POS); O2 ADMINISTRATION 60% BIPAP
--- NOTE | 2016-11-10 11:23 | Progress Note ---
Subjective Date of Service: Nov 10, 2016. Subjective Pt evaluation today including: conversation w/ patient, conversation w/ family , physical exam, chart review, lab review, review of studies, review of inpatient medication list Pt somnolent, lethargic and difficult to arouse Problem List Medical Problems: (1) Abdominal pain, epigastric Status: Acute (2) Acute bronchitis Status: Acute (3) Bleeding Status: Acute (4) Congestive heart failure (CHF) Status: Acute (5) Failure of outpatient treatment Status: Acute (6) Generalized weakness Status: Acute (7) Hypoxia Status: Acute (8) Pneumonia Status: Acute (9) Pneumonia Status: Acute (10) Sinusitis Status: Acute (11) SOB (shortness of breath) Status: Acute Review of Systems Unable to obtain due to somnolent state Objective Vital Signs Date Time Temp Pulse Resp B/P Pulse Ox O2 Delivery O2 Flow Rate FiO2 11/10/16 10:53 94 93 60 11/10/16 10:51 94 26 93 BiPAP/CPAP 60 11/10/16 08:16 36.6 106 24 153/83 94 Nasal Cannula 6.0 11/10/16 08:00 Nasal Cannula BiPAP 11/10/16 07:10 101 91 60 11/10/16 07:10 101 24 91 BiPAP/CPAP 60 11/10/16 04:00 BiPAP 60 11/10/16 04:00 36.6 96 28 160/75 93 BiPAP 40 11/10/16 03:50 86 96 60 11/10/16 03:49 90 22 96 BiPAP/CPAP 60 11/10/16 00:09 36.6 91 20 167/71 96 BiPAP 11/10/16 00:00 BiPAP 60 11/09/16 23:32 86 20 96 BiPAP/CPAP 60 11/09/16 22:41 88 96 60 11/09/16 20:00 36.6 89 24 137/75 97 BiPAP 11/09/16 20:00 BiPAP 60 11/09/16 19:18 89 20 96 BiPAP/CPAP 60 11/09/16 19:00 89 94 60 11/09/16 16:00 95 BiPAP 60 11/09/16 15:50 108 94 60 11/09/16 15:50 88 24 96 BiPAP/CPAP 60 11/09/16 15:24 36.7 94 20 140/80 94 BiPAP 11/09/16 12:00 Non-Rebreather Physical Exam General Appearance: WD/WN, + mild distress, + obese Neck: supple, no adenopathy Respiratory/Chest: + decreased breath sounds, + crackles, + wheezing Cardiovascular: no gallop, no JVD Abdomen: non tender, soft Laboratory Results Last 24 Hours Test 11/09/16 11:24 11/09/16 15:13 11/09/16 16:22 11/09/16 20:32 Bedside Glucose 228 mg/dl 290 mg/dl 195 mg/dl Arterial Blood pH 7.34 Arterial Blood Partial Pressure CO2 91 mmHg Arterial Blood Partial Pressure O2 71 mm/Hg Arterial Blood HCO3 48 mmol/L Arterial Blood Oxygen Saturation 92.8 % Arterial Blood Base Excess 17.7 mEq/L Arterial Blood Gas Delivery 60% Shreyas Test POS Test 11/10/16 05:47 11/10/16 05:52 11/10/16 06:42 11/10/16 09:15 Sodium Level 136 mmol/L Potassium Level 4.6 mmol/L Chloride Level 88 mmol/L Carbon Dioxide Level 42 mmol/L Anion Gap 7.0 mmol/L Blood Urea Nitrogen 26 mg/dl Creatinine 0.91 mg/dl Est Creatinine Clear Calc Drug Dose 86.9 ml/min Estimated GFR () 73.1 Estimated GFR (Non- 63.0 BUN/Creatinine Ratio 28.8 Random Glucose 216 mg/dl Calcium Level 9.0 mg/dl Chemistry Specimen Hemolysis White Blood Count 8.30 K/uL Red Blood Count 4.48 M/uL Hemoglobin 12.8 g/dL Hematocrit 42.4 % Mean Corpuscular Volume 94.6 fL Mean Corpuscular Hemoglobin 28.6 pg Mean Corpuscular Hemoglobin Concent 30.2 g/dl RDW Standard Deviation 59.2 fL RDW Coefficient of Variation 17.1 % Platelet Count 186 K/uL Mean Platelet Volume 10.4 fL Bedside Glucose 177 mg/dl Arterial Blood pH 7.27 Arterial Blood Partial Pressure CO2 107 mmHg Arterial Blood Partial Pressure O2 76 mm/Hg Arterial Blood HCO3 48 mmol/L Arterial Blood Oxygen Saturation 93.1 % Arterial Blood Base Excess 15.6 mEq/L Arterial Blood Gas Delivery 60% BIPAP Shreyas Test POS Test 11/10/16 10:57 Assessment and Plan 71 y/o female with a history of chronic diastolic CHF, a-flutter, HTN, HLD, DM II, lymphedema, hypothyroidism, depression and anxiety who presented to the ED on 11/08 with generalized weakness and shortness of breath. Pt on 3L continuous oxygen typically but was oxygenating at only 88%, so she was placed on 4L in the ED. CXR shows progressive moderate pulmonary edema. Flu negative. Cardiac enzymes negative x 1. Acute on chronic diastolic CHF, generalized weakness, SOB -Echocardiogram, results below: * 1. Normal left ventricular size with grossly normal systolic function. Estimated EF 55-60%. Cannot exclude wall motion abnormalities given poor image quality. No definite regional wall motion abnormalities noted. Moderate concentric left ventricular hypertrophy. * 2. Right ventricle not well visualized however, right ventricular systolic function appears to be mildly reduced. * 3. Moderate to severe mitral annular calcification. * 4. Poor image quality. * 5. Technically difficult study, enhanced somewhat with IV Definity. * 6. Mildly elevated right ventricular systolic pressure; estimated RVSP 39 mmHg. * 7. No significant change from prior study on 11/17/2013. -Lasix 40 mg IV BID. -Marino catheter inserted. Pt refusing bed gauthier, cannot get up out of bed -Duonebs QIDR and q2h prn SOB/wheezing -Continue Flovent 1 puff inh BID -PT/OT evaluate and treat -Daily weights -Strict I/Os -Place 2000 mL fluid restriction Acute on chronic respiratory failure -Initial ABG: pH 7.33, pCO2 89, pO2 58, HCO3 46, O2 sat 86.9 -Placed on BIPAP, elev Co2 on repeat ABG ?Atrial fibrillation/a-flutter. h/o a-flutter, on anticoagulation -Admit to telemetry for cardiac monitoring -Pt had long QT on initial EKG, consulted cardiology. Corrected QT WNL, consult canceled. -EKG 11/09: 110 bpm, possible a-flutter vs SR with 1st degree AV block -Cardiac enzymes negative x 3 -Continue diltiazem 240 mg PO qd -Continue Xarelto 20 mg PO qd HTN--stable -Continue metoprolol succinate 100 mg PO qd HLD -Continue atorvastatin 40 mg PO qd Diabetes mellitus type 2--Last HgbA1c checked 09/29/16 was 6.8 -Hold metformin and Humalog -Insulin sliding scale -Check BSGs q ac and qhs CKD stage II--stable -Creatinine stable, at baseline -Continue to monitor Hypothyroidism -Continue Synthroid 50 mcg PO qd Depression and anxiety -Continue sertraline 50 mg PO qd, alprazolam 1 mg PO BID prn anxiety DVT prophylaxis -Xarelto -SCDs Code Status -Level V, DO NOT RESUSCITATE
[2016-11-10 14:54] LABS: ARTERIAL BLOOD GAS BASE EXCESS 15.9 mEq/L (-9-1.8); ARTERIAL BLOOD GAS HCO3 49 mmol/L (19-24); ARTERIAL BLOOD GAS PO2 76 mm/Hg (80-95); ARTERIAL BLOOD GAS pH 7.25 (7.35-7.45)
[2016-11-10 15:02] LABS: ALLEN TEST POS (POS); O2 ADMINISTRATION 60
[2016-11-10] MEDS ORDERED: METHYLPREDNISOLONE IV 40 MG in SYRINGE 0 ML IV SCH (18:00)
--- NOTE | 2016-11-10 18:49 | PULMONARY CONSULTATION ---
DATE OF CONSULTATION: 11/10/2016 TIME: 5:35 p.m. HISTORY OF PRESENT ILLNESS: The patient was seen in room #205. She is a 71-year-old female who was brought to the Emergency Room on the with significant weakness and shortness of breath. The shortness of breath became more apparent on November 07. Preceding that, she had been admitted to the hospital from October 23 through October 27 with weakness. It was thought than that she might have pneumonia. She went to [facility] for a short time and then apparently went back home. The patient is obtunded and she is unable to give me any history. Her is not present at the time of this evaluation. She had been going to physical therapy outpatient. On the day before admission, she was not able to get herself off the wheelchair, which is an activity she is usually able to. She noticed increasing shortness of breath with exertion and wheezing. The patient reported having palpitations with exertion. She has a history of chronic lymphedema in the lower extremities as well as cellulitis. She also has marked obesity. Reportedly, she has been a nonsmoker. PAST SURGICAL HISTORY: The patient is noted to have a fairly large scar on her abdominal wall. I could not find a report of prior surgeries. PAST MEDICAL HISTORY: 1. Obesity. 2. Lymphedema. 3. Atrial flutter. 4. Congestive heart failure. 5. Hypertension. 6. Diabetes. 7. Endometrial CA, which may have been the source for the scar 8. Epistaxis. 9. Sciatica. 10. Anxiety. 11. Hirsutism. SOCIAL HISTORY: Reportedly, she did not smoke. I could not confirm this. Alcohol use is unknown. ALLERGIES: LISTED ALLERGIES TO MINERAL OIL, METRONIDAZOLE, AND PENICILLIN. FAMILY HISTORY: Positive for Alzheimer disease, hypertension, and CVA. It is not known, which family members have those disorders. MEDICATIONS AT HOME: 1. Allopurinol 100 mg daily. 2. Alprazolam 1 mg b.i.d. p.r.n. 3. Atorvastatin 40 mg daily. 4. Cholecalciferol 2000 units daily. 5. Diltiazem 240 mg daily. 6. Docusate 100 mg b.i.d. 7. Flovent HFA 1 puff b.i.d. 8. Furosemide 40 mg daily. 9. Hydrocortisone cream. 10. Insulin, both Humalog 75/25 and NovoLog. 11. Levothyroxine 50 mcg daily. 12. Magnesium oxide 400 mg daily. 13. Metformin 500 mg b.i.d. 14. Metoprolol 100 mg daily. 15. Multivitamins. 16. O2 3 liters continuous. 17. Rivaroxaban 20 mg daily. 18. Sertraline 50 mg daily. REVIEW OF SYSTEMS: Unobtainable as the patient is obtunded. PHYSICAL EXAMINATION: GENERAL: The patient is a 71-year-old female who is obtunded. She did not respond even to painful stimuli. She is obese. Weight is listed as 171 kilograms and a BMI is listed as 68.9. She has a BiPAP in place. The pressures currently are 20/7. VITAL SIGNS: Temperature is 36.6. She has not had any fevers during this hospital stay. Heart rate is 83 per minute. It is regular. Blood pressure 162/79. Oxygen saturation was 93%. HEENT: I could not examine the nasal passage or oropharynx due to the BiPAP mask. Her pupils did react. NECK: She has a huge neck. No lymph nodes or masses were palpable. CHEST: Shows diminished excursions. LUNGS: Wheezing is heard. The breath sounds were poor throughout. The patient could not be turned for me to examine posteriorly. ABDOMEN: Obese. Bowel sounds were diminished. She has a large scar from prior surgery. No definite mass was palpable. LOWER EXTREMITIES: Showed marked erythema and edema. Reportedly, this is chronic. It feels a bit warm to touch. LABORATORY AND IMAGING DATA: Chest x-ray done on admission showed what appeared to be bilateral effusions with possible pulmonary edema. However, the markings may look more prominent because she was supine and because she is obese. CBC today showed a white count of 8.3, hemoglobin 12.8, platelets 186,000. Coags on admission were normal. Blood gases have been done serially. The first blood gas done on the morning of November 09 showed a pH of 7.33 with a pCO2 of 89 and a pO2 of 58; this was done on 6 liters. This would reflect partially compensated respiratory acidosis. Follow up blood gas at 3:00 p.m. on the showed a pH of 7.34 with a pCO2 of 91 and a pO2 of 71; done on 60% oxygen. Blood gas this morning at 9:15 showed a pH of 7.27 with a pCO2 of 107, and a pO2 of 76 done on BiPAP. Blood gas this afternoon showed a pH of 7.25 with a pCO2 of 113 and a pO2 of 76; done on presumably BiPAP. Electrolytes show sodium 136, potassium 4.6, chloride 88, and bicarbonate 42. BUN was 26 with a creatinine of 0.91. Most recent blood sugar was 257. Calcium was 9 and magnesium was 2. Flu test was negative. EKG done on the suggested possible atrial flutter versus sinus rhythm with a first degree block. Nonspecific ST and T-wave changes were seen. IMPRESSIONS: 1. Respiratory failure with hypoxia and hypercarbia. 2. Obesity hypoventilation syndrome. 3. Probable obstructive sleep apnea. 4. Pleural effusions, right greater than left. RECOMMENDATIONS: The patient's status is very poor. We need to do what we can to decrease her pCO2. Her blood gases would suggest that her baseline pCO2 is probably in the 70s or low 80s. I am going to adjust the BiPAP pressures to 20/12. We also need to lower her oxygen to keep her saturations between 85% and 90%. Hopefully, this will stimulate her ventilatory drive somewhat. She is on furosemide twice a day as well as her other usual medicines. It does not appear that she is on any IV steroids. Because of her wheezing, I will put her on Solu-Medrol. The blood sugars will need to be watched carefully obviously. Prognosis seems to be poor. It is not clear what has resulted in this fairly acute deterioration. Will check a TSH level to make sure that she is not profoundly hypothyroid. Thank you very much for asking me to assist in her care. HEATH
[2016-11-10] MEDS: METHYLPREDNISOLONE IV 60 MG in SYRINGE 0 ML IV SCH (21:45)
[2016-11-10] MEDS: ATORVASTATIN 40 MG TAB PO SCH (21:46)
[2016-11-10] MEDS: RIVAROXABAN 20 MG TAB PO SCH (21:47)
[2016-11-11] VITALS (26 sets, daily range): BP systolic 125–156; BP diastolic 68–91; PULSE 74–108; TEMP 36.6–36.9; O2SAT 40–94
[2016-11-11] MEDS: LEVOTHYROXINE 50 MCG TAB PO SCH (06:29)
[2016-11-11] MEDS: ALBUT/IPRATROP 3MG/0.5MG NEB 3 ML VIAL INH SCH ×4 (07:20→20:09)
[2016-11-11 07:32] LABS: HEMATOCRIT 44.3 % (37-47); MEAN CELL VOLUME 93.5 fL (80-100); MEAN CORPUSCULAR HEMOGLOBIN 28.7 pg (25-34); MEAN CORPUSCULAR HGB CONC 30.7 g/dl (32-36); MEAN PLATELET VOLUME 9.7 fL (7.4-10.4); PLATELET COUNT 165 K/uL (130-400); RED BLOOD COUNT 4.74 M/uL (4.2-5.4)
[2016-11-11] MEDS: FLUTICASONE PROP HFA INH 44 MCG INHALER INH SCH ×2 (07:33→21:12)
[2016-11-11] MEDS: MICONAZOLE NITRATE POWDER 43 GM EXT SCH ×2 (07:33→21:12)
[2016-11-11 07:34] LABS: BUN/CREATININE RATIO 36.8 (10-20); CALCIUM 8.5 mg/dl (8.5-10.1); CREATININE 0.99 mg/dl (0.60-1.20); POTASSIUM 4.9 mmol/L (3.5-5.1)
[2016-11-11] MEDS: SERTRALINE HCL 50 MG TAB PO SCH (07:34)
[2016-11-11] MEDS: FUROSEMIDE INJ 40 MG in SYRINGE 0 ML IV SCH ×2 (07:34→17:43)
[2016-11-11] MEDS: ALLOPURINOL 100 MG TAB PO SCH (07:34)
[2016-11-11] MEDS: METHYLPREDNISOLONE IV 60 MG in SYRINGE 0 ML IV SCH ×2 (07:34→21:12)
[2016-11-11] MEDS: METOPROLOL SUCC 50MG EXT REL TAB PO SCH (07:34)
[2016-11-11] MEDS: MAGNESIUM OXIDE 400 MG TAB PO SCH (07:34)
[2016-11-11] MEDS: DILTIAZEM HCL 240 MG CAPCR PO SCH (07:34)
[2016-11-11] MEDS: DOCUSATE SODIUM 100 MG CAP PO SCH ×2 (07:34→21:12)
[2016-11-11 07:43] LABS: THYROID STIMULATING HORMONE 1.04 uIu/ml (0.300-4.500)
--- NOTE | 2016-11-11 08:23 | PULMONARY PROGRESS NOTE ---
DATE: 11/11/2016 TIME: 08:00 a.m. SUBJECTIVE: The patient today is awake. Yesterday, she was totally obtunded. She apparently has had BiPAP on almost continually since yesterday morning. She awakened last night. She wanted the nursing staff to call her about 10:00 p.m. She apparently tolerated BiPAP very well. She has a harsh cough. She is not expectorating any phlegm. Her was present at this time. I discussed the case with him in detail. Apparently, her health had not been too bed until the past month or two. She has been getting more and more somnolent. He does indicate that when she was at [facility], she was able to ambulate 200 feet with a walker. OBJECTIVE: GENERAL: The patient is awake. She was able to answer questions. She is afebrile at 36.6. She has a huge neck. Nursing staff is getting ready to let her try small amounts of food or liquids. HEART: Heart rate currently is 100 per minute. It is regular. It is difficult to tell if it is sinus or flutter. Blood pressure is 140/69. LUNGS: Respiratory rate 24 breaths per minute. The breath sounds are severely diminished and she does have wheezing. Most of the time, her saturations have been between 85 and 90, although currently she was 98% as they taken her off BiPAP and put her on a mask. I cautioned nursing staff about trying to keep the saturations on the low side. ABDOMEN: Obese. Bowel sounds were present. There was no tenderness to palpation. EXTREMITIES: Show what appears to be chronic edema of both lower extremities with mild erythema. The edema would be +1 to +2. LABORATORY DATA: White count today is 6.6. Hemoglobin 13.6. Platelets are 165,000. Blood gas from today is pending. Electrolytes show sodium 137, potassium 4.9, chloride 90, and bicarbonate 39. BUN is 36 with a creatinine of 0.99. Blood sugar this morning is 231. IMPRESSIONS: 1. Respiratory failure with hypoxia and hypercarbia. 2. Obesity hypoventilation syndrome. 3. Probable obstructive sleep apnea. 4. Pleural effusions, right greater than left. COMMENTS AND RECOMMENDATIONS: The patient's states that she has never had a sleep study. I explained to him that we would want to likely do this as an outpatient or at the very least, get her treated with BiPAP at home if she is able to get out of the hospital. For now, we will use the BiPAP off and on pending the results of blood gases. She will need the BiPAP every night. I would continue with the steroids as currently ordered as well as her other medications. Prognosis remains guarded at best.
[2016-11-11] MEDS: INSULIN ASPART 100 UNITS/ML 3 ML PEN SC SCH ×4 (08:46→21:37)
[2016-11-11 09:56] LABS: ALLEN TEST POS (POS); ARTERIAL BLD GAS O2 SATURATION 91.5 % (90-95); ARTERIAL BLOOD GAS BASE EXCESS 15.6 mEq/L (-9-1.8); ARTERIAL BLOOD GAS HCO3 47 mmol/L (19-24); ARTERIAL BLOOD GAS PO2 68 mm/Hg (80-95); ARTERIAL BLOOD GAS pH 7.29 (7.35-7.45); O2 ADMINISTRATION 5%
--- NOTE | 2016-11-11 10:24 | Progress Note ---
Subjective Date of Service: Nov 11, 2016. Subjective Pt evaluation today including: conversation w/ patient, physical exam, chart review, lab review, review of studies, conversation w/ farm consultant, review of inpatient medication list Pt more awake and alert On BiPAP and tolerating No complaints overnight at bedside, concerns addressed Problem List Medical Problems: (1) Abdominal pain, epigastric Status: Acute (2) Acute bronchitis Status: Acute (3) Bleeding Status: Acute (4) Congestive heart failure (CHF) Status: Acute (5) Failure of outpatient treatment Status: Acute (6) Generalized weakness Status: Acute (7) Hypoxia Status: Acute (8) Pneumonia Status: Acute (9) Pneumonia Status: Acute (10) Sinusitis Status: Acute (11) SOB (shortness of breath) Status: Acute Review of Systems Constitutional: No chills, No fever Respiratory: + dyspnea at rest, + shortness of breath, + wheezing, No cough, No sputum Cardiac: + edema, No chest pain, No orthopnea Abdomen: No constipation, No diarrhea, No nausea, No pain, No vomiting Musculoskeletal: No joint pain, No muscle pain Female : No dysuria, No urinary frequency Objective Vital Signs Date Time Temp Pulse Resp B/P Pulse Ox O2 Delivery O2 Flow Rate FiO2 11/11/16 08:01 92 BiPAP 12.0 40 11/11/16 07:40 36.7 93 16 125/91 92 Mask 10.0 11/11/16 07:18 108 19 91 BiPAP/CPAP 40 11/11/16 07:18 108 91 40 11/11/16 05:35 97 88 40 11/11/16 04:22 36.6 11/11/16 04:00 88 24 85 11/11/16 04:00 40 BiPAP 11/11/16 03:59 87 28 140/69 85 11/11/16 03:40 87 86 40 11/11/16 03:00 87 23 90 11/11/16 02:59 87 24 147/82 90 11/11/16 02:00 81 27 89 11/11/16 01:59 87 27 151/73 89 11/11/16 01:00 74 25 87 11/11/16 00:17 87 90 40 11/11/16 00:00 40 BiPAP 11/10/16 23:58 36.5 11/10/16 20:00 40 BiPAP 11/10/16 19:46 36.6 73 25 156/74 92 BiPAP 11/10/16 19:15 70 92 40 11/10/16 19:13 70 19 92 BiPAP/CPAP 40 11/10/16 17:58 40 11/10/16 17:52 78 95 50 11/10/16 16:00 92 BiPAP 60 11/10/16 15:24 84 93 60 11/10/16 15:16 84 22 93 BiPAP/CPAP 60 11/10/16 15:06 36.6 86 24 162/79 91 BiPAP 11/10/16 13:02 36.6 92 24 150/84 93 BiPAP 11/10/16 12:00 Nasal Cannula BiPAP 11/10/16 10:53 94 93 60 11/10/16 10:51 94 26 93 BiPAP/CPAP 60 Physical Exam General Appearance: WD/WN, + mild distress, + obese Neck: supple, no adenopathy Respiratory/Chest: + decreased breath sounds, + wheezing Cardiovascular: no gallop, no JVD Abdomen: non tender, soft Neurologic/Psychiatric: alert, normal mood/affect Laboratory Results Last 24 Hours Test 11/10/16 11:22 11/10/16 11:27 11/10/16 14:38 11/10/16 16:02 Bedside Glucose 247 mg/dl 257 mg/dl Magnesium Level 2.0 mg/dl Arterial Blood pH 7.25 Arterial Blood Partial Pressure CO2 113 mmHg Arterial Blood Partial Pressure O2 76 mm/Hg Arterial Blood HCO3 49 mmol/L Arterial Blood Oxygen Saturation 93.0 % Arterial Blood Base Excess 15.9 mEq/L Arterial Blood Gas Delivery 60 Shreyas Test POS Test 11/10/16 20:16 11/11/16 07:00 11/11/16 09:44 Bedside Glucose 200 mg/dl 231 mg/dl White Blood Count 6.60 K/uL Red Blood Count 4.74 M/uL Hemoglobin 13.6 g/dL Hematocrit 44.3 % Mean Corpuscular Volume 93.5 fL Mean Corpuscular Hemoglobin 28.7 pg Mean Corpuscular Hemoglobin Concent 30.7 g/dl RDW Standard Deviation 57.9 fL RDW Coefficient of Variation 16.9 % Platelet Count 165 K/uL Mean Platelet Volume 9.7 fL Sodium Level 137 mmol/L Potassium Level 4.9 mmol/L Chloride Level 90 mmol/L Carbon Dioxide Level 39 mmol/L Anion Gap 8.0 mmol/L Blood Urea Nitrogen 36 mg/dl Creatinine 0.99 mg/dl Est Creatinine Clear Calc Drug Dose 79.8 ml/min Estimated GFR () 66.0 Estimated GFR (Non- 56.9 BUN/Creatinine Ratio 36.8 Random Glucose 271 mg/dl Calcium Level 8.5 mg/dl Thyroid Stimulating Hormone (TSH) 1.040 uIu/ml Arterial Blood pH 7.29 Arterial Blood Partial Pressure CO2 99 mmHg Arterial Blood Partial Pressure O2 68 mm/Hg Arterial Blood HCO3 47 mmol/L Arterial Blood Oxygen Saturation 91.5 % Arterial Blood Base Excess 15.6 mEq/L Arterial Blood Gas Delivery 5% Shreyas Test POS Assessment and Plan 71 y/o female with a history of chronic diastolic CHF, a-flutter, HTN, HLD, DM II, lymphedema, hypothyroidism, depression and anxiety who presented to the ED on 11/08 with generalized weakness and shortness of breath. Pt on 3L continuous oxygen typically but was oxygenating at only 88%, so she was placed on 4L in the ED. CXR shows progressive moderate pulmonary edema. Flu negative. Acute on chronic diastolic CHF, generalized weakness, SOB -Echocardiogram, results below -Normal left ventricular size with grossly normal systolic function. Estimated EF 55-60%. Cannot exclude wall motion abnormalities given poor image quality. Moderate concentric left ventricular hypertrophy. -Cardiac enzymes neg x 3 sets. -Lasix 40 mg IV BID, cont I/Os -Marino catheter inserted. Pt refusing bed gauthier, cannot get up out of bed -PT/OT evaluate and treat -Placed on 2000 mL fluid restriction Acute on chronic respiratory failure -Initial ABG: pH 7.33, pCO2 89, pO2 58, HCO3 46, O2 sat 86.9 -Continue Flovent 1 puff inh BID -Continue Duonebs QIDR and q2h prn SOB/wheezing -Placed on BIPAP, elev Co2 on repeat ABGs to 97 --> 107 -->113 -Pt denies smoking hx, pulm consult as PCO2 continuing to climb, BiPAP settings changed and solumedrol added Repeat ABG pending, poor prognosis ?Atrial fibrillation/a-flutter. H/o a-flutter, on anticoagulation -Admit to telemetry for cardiac monitoring -Pt had long QT on initial EKG, consulted cardiology. Corrected QT WNL, consult canceled. -EKG 11/09: 110 bpm, possible a-flutter vs SR with 1st degree AV block -Cardiac enzymes negative x 3 -Continue diltiazem 240 mg PO qd -Continue Xarelto 20 mg PO qd HTN--stable -Continue metoprolol succinate 100 mg PO qd HLD -Continue atorvastatin 40 mg PO qd Diabetes mellitus type 2--Last HgbA1c checked 09/29/16 was 6.8 -Hold metformin and Humalog -Insulin sliding scale -Check BSGs q ac and qhs CKD stage II--stable -Creatinine stable, at baseline -Continue to monitor Hypothyroidism -Continue Synthroid 50 mcg PO qd Depression and anxiety -Continue sertraline 50 mg PO qd, alprazolam 1 mg PO BID prn anxiety DVT prophylaxis -Xarelto -SCDs Code Status -Level V, DO NOT RESUSCITATE Continued [facility] stay due to: abnormal vital signs, ambulation difficulties
[2016-11-11] MEDS: RIVAROXABAN 20 MG TAB PO SCH (21:12)
[2016-11-11] MEDS: ATORVASTATIN 40 MG TAB PO SCH (21:12)
[2016-11-12] VITALS (16 sets, daily range): BP systolic 151–169; BP diastolic 71–89; PULSE 78–111; TEMP 36.6–37; O2SAT 89–98
[2016-11-12] MEDS: LEVOTHYROXINE 50 MCG TAB PO SCH (05:32)
[2016-11-12] MEDS: ALBUT/IPRATROP 3MG/0.5MG NEB 3 ML VIAL INH SCH ×4 (07:11→19:05)
[2016-11-12] MEDS: MICONAZOLE NITRATE POWDER 43 GM EXT SCH ×2 (08:00→21:00)
[2016-11-12] MEDS: METOPROLOL SUCC 50MG EXT REL TAB PO SCH (08:01)
[2016-11-12] MEDS: DOCUSATE SODIUM 100 MG CAP PO SCH ×2 (08:01→20:46)
[2016-11-12] MEDS: METHYLPREDNISOLONE IV 60 MG in SYRINGE 0 ML IV SCH (08:01)
[2016-11-12] MEDS: FLUTICASONE PROP HFA INH 44 MCG INHALER INH SCH ×2 (08:01→20:36)
[2016-11-12] MEDS: MAGNESIUM OXIDE 400 MG TAB PO SCH (08:01)
[2016-11-12] MEDS: FUROSEMIDE INJ 40 MG in SYRINGE 0 ML IV SCH (08:01)
[2016-11-12] MEDS: DILTIAZEM HCL 240 MG CAPCR PO SCH (08:01)
[2016-11-12] MEDS: SERTRALINE HCL 50 MG TAB PO SCH (08:01)
[2016-11-12] MEDS: ALLOPURINOL 100 MG TAB PO SCH (08:02)
--- NOTE | 2016-11-12 08:06 | PULMONARY PROGRESS NOTE ---
DATE: 11/12/2016 The patient is awake, alert, oriented, comfortable. She states she used the BiPAP last night. She was wondering when she could be discharged. She wanted to see her today as well. According to nurses' note, she was resting well on BiPAP at 2018 last night and tolerated it fairly well. There was no evidence of any distress. At 1610, she was on BiPAP as well. BiPAP is off now. She is comfortable. She denies cough or headaches. She has not been out of bed, has not been active. MEDICATIONS: Reviewed. PHYSICAL EXAMINATION: VITAL SIGNS: Stable. Her blood pressure is 151/75, oxygen saturation 94% on 40% FiO2 with BiPAP, and she is afebrile. I\T\O, 745 in and 1 liter out. Weight 163 kilograms. The weights have been off by several kilograms. It does not appear she lost 8 kilograms over 24 hours at least by the I\T\O, so her weight is probably about 170 kilograms. HEENT: She has a very small posterior pharynx with no evidence of thrush. Tongue is huge. Trachea is midline. Mandibular exam normal. No adenopathy is noted. Thyroid nonpalpable. HEART: Regular rate and rhythm. Her second heart sound was normal. I do not detect any murmurs. LUNGS: Reveal decreased breath sounds bilaterally, otherwise were clear. ABDOMEN: Soft, massively obese, nontender. I could not palpate the liver or the spleen. There was no tenderness. EXTREMITIES: She has no cyanosis or clubbing. She does have significant edema of the legs. I reviewed Dr. Olivares's notes from her hospitalization here on 10/19/2016. She carries a history of atrial flutter, congestive heart failure which is diastolic heart failure, renal insufficiency, and hyperkalemia as well. LABORATORY WORK: Reveals a stable CBC with a hemoglobin of 13.6. Blood gas on 11/11/2016 revealed a pH of 7.29, pCO2 of 99, pO2 of 68. PRP is stable with a CO2 of 39, on the electrolytes it was 44 on 11/09/2016, so that shows improvement in her respiratory acidosis as well. Coagulation profile is unremarkable. Influenza A and B antigens are negative. Blood cultures are negative. Chest x-ray revealed changes consistent with pulmonary edema. Bilateral pleural effusions persist. IMPRESSION: 1. Respiratory failure secondary to hypoventilation syndrome. 2. Profound obesity-hypoventilation syndrome with respiratory acidosis with compensation, partial. 3. Massive obesity. 4. Diastolic heart failure with bilateral pleural effusions. RECOMMENDATIONS: 1. At this point, I think the methylprednisolone could be tapered down, perhaps she could be placed on prednisone 30 mg daily and taper that down over about 5-7 days. I do not think she has any respiratory disorder at this point that would require prednisone for now. 2. Continue on the Toprol and Cardizem. 3. Weight reduction, increase activity as tolerated. 4. Continue on the Xarelto with glucose control. 5. The main treatment for her, I believe, from a pulmonary standpoint will be continuing on her BiPAP. I would suggest adding a rate of 8 to her present settings of 20/12, that may help to further improve the respiratory acidosis. There is mild elevation of her right ventricular systolic pressure at 39, and with weight reduction, improvement in left ventricular dysfunction, diastolic heart failure, concentric left ventricular hypertrophy, that should improve. Overall, pulmonary joe she is stable today.
[2016-11-12] MEDS: INSULIN ASPART 100 UNITS/ML 3 ML PEN SC SCH ×4 (08:16→20:41)
[2016-11-12] MEDS ORDERED: INSULIN GLARGINE SOLOSTAR 100 UNITS/ML 3 ML PEN SC SCH (09:00)
[2016-11-12 09:50] LABS: HEMATOCRIT 42.2 % (37-47); MEAN CELL VOLUME 93.6 fL (80-100); MEAN CORPUSCULAR HEMOGLOBIN 29.3 pg (25-34); MEAN CORPUSCULAR HGB CONC 31.3 g/dl (32-36); PLATELET COUNT 197 K/uL (130-400); RED BLOOD COUNT 4.51 M/uL (4.2-5.4); WHITE BLOOD COUNT 10.63 K/uL (4.8-10.8)
[2016-11-12 09:56] LABS: VEN BLOOD GAS BASE EXCESS 19.8 mmol/L
[2016-11-12 10:49] LABS: BUN/CREATININE RATIO 42.9 (10-20); CALCIUM 8.9 mg/dl (8.5-10.1); CREATININE 1.1 mg/dl (0.60-1.20); MAGNESIUM 2.3 mg/dl (1.8-2.4); POTASSIUM 4.4 mmol/L (3.5-5.1)
[2016-11-12 11:03] LABS: BETA-HYDROXYBUTYRATE 3.2 mg/dL (0.2-2.81)
--- NOTE | 2016-11-12 12:36 | Pharmacy Progress Note ---
Glycemic Control: Initial Note Date of Service Nov 12, 2016. Scope Glycemic Pharmacist to provide recommendations to improve glycemic control (all ICU patients are screened for hyperglycemia and treatment recommendations are provided per protocol). Pt identified with hyperglycemia (BSG above 180) while admitted to [facility] [place]). Subjective The patient is a 71 year old female admitted on Nov 08, 2016 at 13:41 for respiratory failure secondary to obesity hypoventilation syndrome and heart failure. Patient's past medical history is significant for type 2 diabetes mellitus. Objective Height (Feet): 5 Height (Inches): 2.00 Weight (Kilograms): 163.000 Accuchecks BSG (last 24hrs): Test 11/11/16 16:22 11/11/16 20:09 11/12/16 06:36 11/12/16 09:40 Bedside Glucose 312 mg/dl (70-90) 321 mg/dl (70-90) 363 mg/dl (70-90) Random Glucose 410 mg/dl (70-99) Test 11/12/16 11:06 Bedside Glucose 382 mg/dl (70-90) Laboratory Data (last 24hrs) Test 11/12/16 09:40 Anion Gap 8.0 mmol/L BUN/Creatinine Ratio 42.9 Blood Urea Nitrogen 47 mg/dl Creatinine 1.10 mg/dl Potassium Level 4.4 mmol/L Sodium Level 136 mmol/L White Blood Count 10.63 K/uL Recent Pertinent Medications Outpatient Anti-diabetic Regimen: * Humalog mix 75/25 80 units SQ BID * Novolog per sliding scale, using a CF of ~25-30mg/dL/unit * Metformin 500mg PO BID * A1c = 6.8% 09/29/16 The patient is currently receiving: * Basal Insulin: Lantus 15 units every 24 hours - dosed in the AM; first dose given this AM * Correctional Insulin: Novolog Correction per scale ACHS Goal Range: Low 120 mg/dL - High 160 mg/dL Correction Factor: 35 mg/dL/unit * Prandial Insulin: Per carb ratio of 1 unit per 8 grams CHO consumed * Oral Agents: none currently Risk Factors for Insulin Resistance: * Steroids: Solu-Medrol 60mg IV Q 12 hours * Diet: ordered T2DM / AHA / fluid restricted diet. CHO intake has been erratic Assessment & Plan ASSESSMENT: 11/12/16 * Patient has had poor glycemic control over the last 24 hrs; BSGs have ranged 285-382 * Current BSG pattern suggests basal insulin deficit. Hospitalist has started Lantus insulin this AM. However, I feel she may require more with the current dose of IV Solu-Medrol. On a recent admission she required ~40-50 units of insulin per day while tolerating a diet and NO steroids. * The Novolog CF and CR may need adjusted to allow for larger doses as she required larger doses when not receiving steroids on prior admission RECOMMEND: * Increasing Lantus to 15 units SQ BID * Changing correction factor to 18 mg/dl/unit * Changing carb ratio 1 unit per 6 grams CHO consumed * Continuing goal range of Low 120 mg/dL - High 160 mg/dL * Change BSG frequency to Q 4 hrs to allow for 2 additional BSG checks and Novolog coverage over the next 24 hours given severe hyperglycemia. * Reassess insulin doses with each step down in steroid dose Pharmacy will continue to provide recommendations in EMR while patient admitted to 1E/2E. Physicians may request pharmacy to continue to follow patient when transferred out of the ICU and/or consult pharmacy to write glycemic control orders * Please note that the plan above was derived based on current level of insulin resistance and hospital stress. These recommendations are appropriate for inpatient admission only. Plan of care upon discharge will need to be reassessed to avoid potential outpatient hypo/hyperglycemia. Thank you.
--- NOTE | 2016-11-12 14:55 | DIAGNOSTIC IMAGING REPORT ---
CT SCAN OF THE CHEST WITHOUT IV CONTRAST CLINICAL HISTORY: Pneumonia. COMPARISON STUDY: Chest CT dated 11/18/2013. Chest x-ray dated 11/08/2016. TECHNIQUE: CT scan of the thorax was performed from the thoracic inlet to the upper abdomen. Images are reviewed in the axial, sagittal, and coronal planes. IV contrast was not administered for this examination as per the referring clinician. The examination is significantly degraded by large body habitus, and by streak artifact from the body wall abutting the CT gantry. CT DOSE: 1278.14 mGy.cm FINDINGS: Thyroid: Imaged portions of the thyroid gland are normal in size and attenuation. A 1.8 cm low-attenuation nodule is seen in the right lobe. Thoracic aorta: There is atherosclerotic calcification of the thoracic aorta, which is normal in caliber and demonstrates standard 3-vessel arch anatomy. Heart: The heart is enlarged and without pericardial effusion. The coronary arteries and mitral annulus are densely calcified. The pulmonary trunk is dilated measuring 3.7 cm in transverse diameter. This suggests pulmonary artery hypertension. Lungs and pleural spaces: There are moderate pleural effusions with dense bibasilar consolidation. Mild airspace opacities are seen within the upper lobes. The trachea and central airways appear clear. Mediastinum: There are scattered subcentimeter mediastinal lymph nodes. These are not pathologically enlarged by size criteria. Brittani: Not well assessed without IV contrast. Axillae: There is no axillary lymphadenopathy. Upper abdomen: There is a tiny hiatal hernia. The appearance of the liver suggests early changes of cirrhosis. There is a small volume of perihepatic ascites. Skeletal structures: The skeletal structures are osteopenic. Degenerative change is noted in the thoracic spine and shoulders. No lytic or blastic bony lesions are seen. IMPRESSION: 1. Cardiomegaly with evidence of pulmonary artery hypertension. 2. Moderate pleural effusions with dense bibasilar consolidation. This likely represents atelectasis. Correlate clinically for evidence of superimposed pneumonia. 3. Faint upper lobe airspace opacities may represent a component of interstitial edema versus an infectious/inflammatory pneumonitis. Again, clinical correlation will be required. 4. The appearance of the liver suggests changes of cirrhosis. There is trace perihepatic ascites. 5. There is a 1.8 cm low-attenuation nodule in the right lobe of the thyroid gland. Consider nonemergent thyroid ultrasound in follow-up. 6. Additional findings as above. Electronically signed by: Ryan Montero M.D. 11/12/2016 2:53 PM Dictated Date/Time: 11/12/2016 2:48 PM
--- NOTE | 2016-11-12 19:51 | Progress Note ---
Subjective Date of Service: Nov 12, 2016. Subjective Pt evaluation today including: conversation w/ patient, conversation w/ family ( at bedside), physical exam, chart review, lab review, review of studies (CT chest), review of inpatient medication list Pain: denies PO Intake: fair at best Voiding: montesinos catheter in place Pt and her both agree that she is "doing better" but not back to baseline. Appetite fair - ate 50% of breakfast today. Still with cough. Tele overnight with NSR. Has had minimal activity. Staff concerned about swallow function and coughing with drinking fluids. Problem List Medical Problems: (1) Abdominal pain, epigastric Status: Acute (2) Acute bronchitis Status: Acute (3) Bleeding Status: Acute (4) Congestive heart failure (CHF) Status: Acute (5) Failure of outpatient treatment Status: Acute (6) Generalized weakness Status: Acute (7) Hypoxia Status: Acute (8) Pneumonia Status: Acute (9) Pneumonia Status: Acute (10) Sinusitis Status: Acute (11) SOB (shortness of breath) Status: Acute Review of Systems Constitutional: No chills, No fever Respiratory: No sputum Cardiac: No chest pain, No orthopnea Abdomen: No pain Objective Vital Signs Date Time Temp Pulse Resp B/P Pulse Ox O2 Delivery O2 Flow Rate FiO2 11/12/16 19:34 36.7 82 21 169/82 94 Nasal Cannula 4.0 11/12/16 19:05 97 20 94 Nasal Cannula 4.0 11/12/16 16:44 92 BiPAP 12.0 40 11/12/16 16:17 78 94 40 11/12/16 15:22 36.6 78 20 161/78 93 Nasal Cannula 4.0 11/12/16 15:15 78 23 97 Nasal Cannula 4.0 40 11/12/16 13:00 37.0 84 24 155/71 89 Nasal Cannula 4.0 Humidified Oxygen 11/12/16 12:09 92 BiPAP 12.0 40 11/12/16 11:22 91 23 92 Nasal Cannula 5.0 40 11/12/16 08:01 92 BiPAP 12.0 40 11/12/16 07:56 36.7 111 22 152/89 90 Nasal Cannula 5.0 Humidified Oxygen 11/12/16 07:11 98 23 96 Nasal Cannula 6.0 40 11/12/16 04:00 BiPAP 40 11/12/16 03:49 36.8 92 22 151/75 94 BiPAP 11/12/16 03:36 79 94 40 11/12/16 00:00 BiPAP 40 11/11/16 23:47 36.8 93 20 152/74 93 BiPAP 11/11/16 23:32 93 93 40 11/11/16 20:18 90 BiPAP 12.0 40 11/11/16 20:10 92 94 40 11/11/16 20:10 92 23 94 BiPAP/CPAP 40 Physical Exam General Appearance: no apparent distress, + obese ENT: + pertinent finding (MM dry) Neck: no JVD Respiratory/Chest: no respiratory distress, no accessory muscle use, + decreased breath sounds (all segments) Cardiovascular: regular rate, rhythm, no gallop, no murmur Abdomen: normal bowel sounds, non tender, soft, no organomegaly Extremities: + pedal edema (lymphedema) Neurologic/Psychiatric: alert, oriented x 3 Skin: + pertinent finding (stasis changes b/l legs) Laboratory Results Last 24 Hours Test 11/11/16 20:09 11/12/16 06:36 11/12/16 09:40 11/12/16 11:06 Bedside Glucose 321 mg/dl 363 mg/dl 382 mg/dl White Blood Count 10.63 K/uL Red Blood Count 4.51 M/uL Hemoglobin 13.2 g/dL Hematocrit 42.2 % Mean Corpuscular Volume 93.6 fL Mean Corpuscular Hemoglobin 29.3 pg Mean Corpuscular Hemoglobin Concent 31.3 g/dl RDW Standard Deviation 59.2 fL RDW Coefficient of Variation 17.3 % Platelet Count 197 K/uL Mean Platelet Volume 10.0 fL Venous Blood pH 7.41 Venous Blood Partial Pressure CO2 80 mmHg Venous Blood Partial Pressure O2 55 mmHg Venous Blood HCO3 49 mmol/L Venous Blood Oxygen Saturation 86.0 % Venous Blood Base Excess 19.8 mmol/L Sodium Level 136 mmol/L Potassium Level 4.4 mmol/L Chloride Level 87 mmol/L Carbon Dioxide Level 41 mmol/L Anion Gap 8.0 mmol/L Blood Urea Nitrogen 47 mg/dl Creatinine 1.10 mg/dl Est Creatinine Clear Calc Drug Dose 69.5 ml/min Estimated GFR () 58.1 Estimated GFR (Non- 50.1 BUN/Creatinine Ratio 42.9 Random Glucose 410 mg/dl Calcium Level 8.9 mg/dl Magnesium Level 2.3 mg/dl Ammonia 23.0 umol/L Beta-Hydroxybutyric Acid 3.20 mg/dL Test 11/12/16 16:00 11/12/16 16:01 Bedside Glucose 414 mg/dl 423 mg/dl Assessment and Plan 71yo female: 1. acute on chronic cor pulmonale / diastolic CHF - improved. Stop lasix due to rising BUN/Cr and appears mildly dehydrated on exam today. Cont metoprolol xl. 2. acute on chronic hypoxic & hypercarbic respiratory failure - overall pulmonary status today stable. appreciate pulmonary consultation & recommendations. agree with adjustments in BIPAP settings as recommended by Dr. Gutierrez. CT chest obtained today to exclude infectious component to ongoing respiratory issues. Has bibasilar consolidation - this could be compressive atelectasis. Will check sed rate/crp in AM to help determine if this could be lingering pneumonia. Cont flovent, duonebs. I agree with Dr. Gutierrez that steroids are not indicated; will d/c them at this time. 3. a. fib - now in NSR. Cont xarelto. Continue diltiazem 240 mg PO qd 4. morbid obesity with BMI of 65 - PT, OT. 5. concern of dysphagia - speech evaluation. 6. uncontrolled T2DM - add lantus 15 units BID. Increase correction factor to 15 and carb ratio to 1:5. Adjust goal range. The glycemic control should improve w/ d/c of the steroids. 7. HTN - control acceptable. 8. hyperlipidemia - cont statin. 9. deconditioning - PT/OT evals 10. hypothyroidism - cont synthroid; TSH is compensated. 11. Depression and anxiety - continue sertraline 50 mg PO qd and alprazolam 1 mg PO BID prn. 12. DVT proph - xarelto. updated at bedside Continued [facility] stay due to: inadequate po fluid intake, voiding difficulties, ambulation difficulties, multiple IV medications needed Discharge planning: uncertain
[2016-11-12] MEDS: INSULIN GLARGINE SOLOSTAR 100 UNITS/ML 3 ML PEN SC SCH (20:42)
[2016-11-12] MEDS: ATORVASTATIN 40 MG TAB PO SCH (20:46)
[2016-11-12] MEDS: RIVAROXABAN 20 MG TAB PO SCH (20:46)
[2016-11-13] VITALS (19 sets, daily range): BP systolic 145–173; BP diastolic 58–91; PULSE 75–82; TEMP 35.7–37.1; O2SAT 91–99; Ht 157.5 cm; Wt 161.0 kg
[2016-11-13] MEDS: LEVOTHYROXINE 50 MCG TAB PO SCH (06:44)
[2016-11-13] MEDS: ALBUT/IPRATROP 3MG/0.5MG NEB 3 ML VIAL INH SCH ×4 (07:00→19:37)
[2016-11-13] MEDS: INSULIN GLARGINE SOLOSTAR 100 UNITS/ML 3 ML PEN SC SCH (07:37)
[2016-11-13] MEDS: INSULIN ASPART 100 UNITS/ML 3 ML PEN SC SCH ×4 (07:37→20:05)
--- NOTE | 2016-11-13 07:38 | PULMONARY PROGRESS NOTE ---
DATE: 11/13/2016 The patient is comfortable this morning. She states she feels considerably improved than she did at the time of admission. She wears BiPAP every night and feels good with the mask. According to nurses' note she slept very well, was easily arousable. She states she was out of bed in the chair yesterday with evidence of weakness when standing, she felt great. She is able to stand with a walker and take a few steps but was weak, especially in the legs. She is tolerating the BiPAP and certainly needs that for home and each time she sleeps even if she naps during the day. She will need BiPAP. She denies cough or chest pain. PHYSICAL EXAMINATION: VITAL SIGNS: Stable. Blood pressure 148/75, oxygen saturation 97% on 40% FIO2 with BiPAP and she is afebrile. I\T\O was 1 liter in and 1675 out. Weight 170 kilograms and is probably stable. She was 172 kilograms on the 24th. MEDICATIONS: Noted. HEENT: Nose exam looks good with a small excoriation underneath the left eye. Nose exam otherwise unremarkable. She has a very small posterior pharynx with a large tongue, small pendulous uvula, normal soft palate and mandibular exam is unremarkable. TMs normal. NECK: No neck vein distention or HJR. HEART: Regular rate and rhythm. No murmurs are heard. LUNGS: Reveal decreased breath sounds bilaterally, otherwise are clear. ABDOMEN: Soft, nontender. She is massively obese. EXTREMITIES: Reveal +2 edema of the pretibial area. The CT of the chest reveals cardiomegaly with an 18 mm nodule noted in the right thyroid lobe, evidence of probable pulmonary hypertension, pleural effusions with bibasilar consolidation. No significant adenopathy is noted. There is a small hiatal hernia, changes consistent with possible cirrhosis and a small amount of perihepatic ascites noted. IMPRESSION: 1. Respiratory failure with hypercapnia and hypoxemia secondary to hypoventilation syndrome, bibasilar atelectasis and pleural effusions. 2. Obesity hypoventilation syndrome, improved on BiPAP. 3. Pleural effusions bilaterally. 4. Diabetes mellitus with increase in glucose. RECOMMENDATIONS: 1. Continue with her present medications. 2. Start incentive spirometry. Continue on BiPAP each time she sleeps. 3. Increase activity. I encouraged her to take deep breathing and coughing and she agreed to do that today. Her venous blood gas shows improvement in her acid base status now with pH 7.41, pCO2 80, pO2 of 55. BiPAP working well for her. She will need that when she goes home. She should wear it every time she sleeps and certainly from 9 at night until about 7 in the morning during her sleep cycle.
[2016-11-13] MEDS: MAGNESIUM OXIDE 400 MG TAB PO SCH (07:39)
[2016-11-13] MEDS: SERTRALINE HCL 50 MG TAB PO SCH (07:39)
[2016-11-13] MEDS: DILTIAZEM HCL 240 MG CAPCR PO SCH (07:39)
[2016-11-13] MEDS: DOCUSATE SODIUM 100 MG CAP PO SCH ×2 (07:39→20:01)
[2016-11-13] MEDS: METOPROLOL SUCC 50MG EXT REL TAB PO SCH (07:39)
[2016-11-13] MEDS: ALLOPURINOL 100 MG TAB PO SCH (07:39)
[2016-11-13] MEDS: FLUTICASONE PROP HFA INH 44 MCG INHALER INH SCH ×2 (07:40→20:01)
[2016-11-13] MEDS: MICONAZOLE NITRATE POWDER 43 GM EXT SCH ×2 (08:02→20:01)
[2016-11-13 10:12] LABS: BUN/CREATININE RATIO 38.1 (10-20); CALCIUM 9.2 mg/dl (8.5-10.1); POTASSIUM 4.1 mmol/L (3.5-5.1)
[2016-11-13] MEDS: ATORVASTATIN 40 MG TAB PO SCH (20:01)
[2016-11-13] MEDS: RIVAROXABAN 20 MG TAB PO SCH (20:01)
--- NOTE | 2016-11-13 20:50 | Progress Note ---
Subjective Date of Service: Nov 13, 2016. Subjective Pt evaluation today including: conversation w/ patient, conversation w/ family ( at bedside), physical exam, chart review, lab review, review of studies (CT chest), review of inpatient medication list Pain: denies cp, abd pain PO Intake: improved/nearly normal Voiding: montesinos catheter in place No events overnight. Telemetry normal/stable. She has very mild, minimal cough but denies dyspnea at rest. Feels much better overall. agreeable to going back to rehab. Problem List Medical Problems: (1) Abdominal pain, epigastric Status: Acute (2) Acute bronchitis Status: Acute (3) Bleeding Status: Acute (4) Congestive heart failure (CHF) Status: Acute (5) Failure of outpatient treatment Status: Acute (6) Generalized weakness Status: Acute (7) Hypoxia Status: Acute (8) Pneumonia Status: Acute (9) Pneumonia Status: Acute (10) Sinusitis Status: Acute (11) SOB (shortness of breath) Status: Acute Review of Systems Constitutional: No fever Respiratory: No dyspnea at rest Cardiac: No chest pain Abdomen: No pain Objective Vital Signs Date Time Temp Pulse Resp B/P Pulse Ox O2 Delivery O2 Flow Rate FiO2 11/13/16 19:44 82 20 96 Nasal Cannula 5.0 11/13/16 16:03 92 BiPAP 12.0 40 11/13/16 16:00 76 22 91 Nasal Cannula 4.0 11/13/16 15:51 37.1 82 23 159/74 95 Nasal Cannula 4.0 11/13/16 12:14 36.8 80 20 160/80 91 Nasal Cannula 3.0 11/13/16 12:02 92 BiPAP 12.0 40 11/13/16 11:15 81 22 92 Nasal Cannula 4.0 11/13/16 08:01 92 BiPAP 12.0 40 11/13/16 07:58 35.7 79 23 161/79 98 BiPAP 40 11/13/16 07:00 79 99 40 11/13/16 07:00 79 20 99 BiPAP/CPAP 40 11/13/16 05:23 75 97 40 11/13/16 04:00 35.9 78 17 148/75 97 BiPAP 40 11/13/16 04:00 BiPAP 11/13/16 01:55 79 98 40 11/13/16 01:00 158/58 2/28/17 00:00 36.0 78 16 173/79 99 BiPAP 40 11/12/16 23:59 BiPAP 11/12/16 23:20 78 98 40 Physical Exam General Appearance: no apparent distress, + obese ENT: pharynx normal Neck: no JVD Respiratory/Chest: no respiratory distress, no accessory muscle use, + decreased breath sounds Cardiovascular: regular rate, rhythm, no gallop, no murmur Abdomen: normal bowel sounds, non tender, soft, no organomegaly Extremities: + pedal edema (1+ b/l ) Neurologic/Psychiatric: alert, oriented x 3 Skin: + pertinent finding (stasis changes b/l shins (distal legs)) Laboratory Results Last 24 Hours Test 11/13/16 06:57 11/13/16 09:20 11/13/16 11:20 11/13/16 16:16 Bedside Glucose 315 mg/dl 331 mg/dl 177 mg/dl Erythrocyte Sedimentation Rate 44 mm/hr Sodium Level 138 mmol/L Potassium Level 4.1 mmol/L Chloride Level 87 mmol/L Carbon Dioxide Level 47 mmol/L Anion Gap 4.0 mmol/L Blood Urea Nitrogen 38 mg/dl Creatinine 1.00 mg/dl Est Creatinine Clear Calc Drug Dose 78.7 ml/min Estimated GFR () 65.2 Estimated GFR (Non- 56.2 BUN/Creatinine Ratio 38.1 Random Glucose 300 mg/dl Calcium Level 9.2 mg/dl C-Reactive Protein 1.00 mg/dl Test 11/13/16 19:58 Bedside Glucose 186 mg/dl Assessment and Plan 71yo female: 1. acute on chronic cor pulmonale / diastolic CHF - acute component resolved. BUN/Cr still high; hold diuretics again today. Cont BB. 2. acute on chronic hypoxic & hypercarbic respiratory failure - stable/improved. appreciate pulmonary consultation & recommendations. continue BIPAP as recommended by Dr. Gutierrez. CT chest w/ bibasilar infiltrates - could be left over infiltrates from previous pneumonia and/or atelectasis. Sed rate/CRP minimally elevated. Defer on antibiotics for now. Steroids have been stopped. 3. a. fib - now in NSR. Cont xarelto. Continue diltiazem 240 mg PO qd 4. morbid obesity with BMI of 65 - PT, OT. 5. concern of dysphagia - speech evaluation appreciated; swallow eval normal. 6. uncontrolled T2DM - increase lantus to 20 units BID; drop correction factor to 12 and carb ratio to 1:4. 7. HTN - control acceptable. 8. hyperlipidemia - cont statin. 9. deconditioning - PT/OT evals 10. hypothyroidism - cont synthroid; TSH is compensated. 11. Depression and anxiety - continue sertraline 50 mg PO qd and alprazolam 1 mg PO BID prn. 12. DVT proph - xarelto. updated at bedside once gain dispo - [facility] ? leave on tele 1 more day and if stable transfer to med/surg in AM Continued [facility] stay due to: voiding difficulties, ambulation difficulties Discharge planning: rehab hospital
[2016-11-13] MEDS ORDERED: INSULIN GLARGINE SOLOSTAR 100 UNITS/ML 3 ML PEN SC SCH (21:00)
[2016-11-14] VITALS (15 sets, daily range): BP systolic 128–167; BP diastolic 64–96; PULSE 73–81; TEMP 36.5–36.7; O2SAT 94–98
[2016-11-14] MEDS: LEVOTHYROXINE 50 MCG TAB PO SCH (06:39)
[2016-11-14] MEDS: ALBUT/IPRATROP 3MG/0.5MG NEB 3 ML VIAL INH SCH ×4 (07:14→19:56)
[2016-11-14] MEDS: INSULIN ASPART 100 UNITS/ML 3 ML PEN SC SCH ×4 (08:29→21:21)
--- NOTE | 2016-11-14 08:44 | PULMONARY PROGRESS NOTE ---
DATE: 11/14/2016 DATE: 11/14/2016. SUBJECTIVE: The patient is very comfortable this morning. She was out of bed in the chair for breakfast until after supper last night and states she does feel better. She is able to tolerate the BIPAP at night without difficulty. She denies shortness of breath, is lying at about 15 degrees, had not had any cough or sputum production. Again, the echocardiogram was reviewed. She does have pulmonary hypertension related to obesity hypoventilation syndrome. She also has moderate concentric left ventricular hypertrophy with moderate to severe mitral annular calcifications. PHYSICAL EXAMINATION: VITAL SIGNS: Stable. She is afebrile. Blood pressure 143/79, oxygen saturation 95% on 4 liters. The I\T\Os 475 in, 1325 out. Weight 164 kilograms. That probably is error, she probably is more about 170 kilograms. According to nurses' note, she tolerated being out of bed and also tolerated the BiPAP without difficulty. The setting is 20/12. HEAD, EYES, EARS, NOSE, AND THROAT: Reveals no thrush. She has very small posterior pharynx, large tongue, small pendulous uvula. No adenopathy is noted. There is no neck vein distention or HJR. HEART: Regular rate and rhythm, second heart sound normal. I do not detect any murmurs. LUNGS: Reveal decreased breath sounds with a few bronchial breath sounds at the right base. ABDOMEN: Soft and massively obese, nontender. She has +1 edema of the pretibial area. LABORATORY DATA: Carbon dioxide on the CO2 is elevated at 47, it was 41 on the 27th. Sugars were in the 315 to 405 range. C. reactive protein was slightly elevated. Sed rate 44. Blood cultures on the are regular. IMPRESSION: 1. Respiratory failure with hypercapnia and hypoxemia related to hypoventilation syndrome. 2. Obesity hypoventilation syndrome, stable. 3. Bilateral pleural effusions. There is a history of heart failure but her echocardiogram actually looked fairly good. She does have some pulmonary hypertension related to left ventricular hypertrophy, probably secondary to hypertension. The pulmonary hypertension will be aggravated by the hypercapnia. 4. Massive obesity. RECOMMENDATIONS: 1. Continue on present BiPAP setting 20/[address] rate of 10. 2. Consider having Dr. Herman evaluate the patient for consideration for thoracentesis, although she may be too obese to have that done. However, she was able to sit out of bed in the chair for an extended period of time yesterday and is very cooperative and is not on any anticoagulants at this point. 3. Continue good DVT prophylaxis. 4. At this point, I would consider pushing the diuretics. Her BUN was 38 and watch her CO2 carefully on the electrolytes. I think adding the ST rate of 10 will help to improve her hypercapnia.
[2016-11-14 08:55] LABS: CREATININE 0.71 mg/dl (0.60-1.20)
[2016-11-14] MEDS: MAGNESIUM OXIDE 400 MG TAB PO SCH (08:58)
[2016-11-14] MEDS: FLUTICASONE PROP HFA INH 44 MCG INHALER INH SCH ×2 (08:58→21:13)
[2016-11-14] MEDS: DOCUSATE SODIUM 100 MG CAP PO SCH ×2 (08:58→21:12)
[2016-11-14] MEDS: DILTIAZEM HCL 240 MG CAPCR PO SCH (08:58)
[2016-11-14] MEDS: MICONAZOLE NITRATE POWDER 43 GM EXT SCH ×2 (08:58→21:12)
[2016-11-14] MEDS: ALLOPURINOL 100 MG TAB PO SCH (08:58)
[2016-11-14] MEDS: METOPROLOL SUCC 50MG EXT REL TAB PO SCH (08:58)
[2016-11-14] MEDS: SERTRALINE HCL 50 MG TAB PO SCH (08:58)
[2016-11-14] MEDS: INSULIN GLARGINE SOLOSTAR 100 UNITS/ML 3 ML PEN SC SCH ×2 (09:00→21:21)
[2016-11-14] MEDS: GUAIFENESIN 600 MG TABCR PO SCH ×2 (11:45→21:12)
--- NOTE | 2016-11-14 13:21 | DIAGNOSTIC IMAGING REPORT ---
CHEST 2 VIEWS ROUTINE CLINICAL HISTORY: Congestive failure COMPARISON STUDY: 11/08/2016, CT scan dated 11/12/2016 FINDINGS: The heart is enlarged. There is a persistent right pleural effusion. There is mild congestive failure/fluid overload. There are by basilar airspace opacities, similar to the CT scan dated 11/12/2016 IMPRESSION: 1. Cardiomegaly and radiographic evidence of congestive failure/fluid overload 2. Moderate right pleural effusion 3. Bibasal airspace opacities, possibly atelectatic. An inflammatory process could appear similar. Electronically signed by: Jacob Horan M.D. 11/14/2016 1:20 PM Dictated Date/Time: 11/14/2016 1:17 PM
[2016-11-14] MEDS: BUMETANIDE IV 1 MG in SYRINGE 0 ML IV ONE ×2 (15:48→17:13)
--- NOTE | 2016-11-14 18:05 | Progress Note ---
Subjective Date of Service: Nov 14, 2016. Subjective Pt evaluation today including: conversation w/ patient, conversation w/ family ( at bedside), physical exam, chart review, lab review, review of studies (cxr), review of inpatient medication list Pain: denies cp, abd pain PO Intake: normal Voiding: incontinence (occasional ) no events overnight telemetry normal she reports worsening cough this am, slightly productive denies any worsening shortness of breath Problem List Medical Problems: (1) Abdominal pain, epigastric Status: Acute (2) Acute bronchitis Status: Acute (3) Bleeding Status: Acute (4) Congestive heart failure (CHF) Status: Acute (5) Failure of outpatient treatment Status: Acute (6) Generalized weakness Status: Acute (7) Hypoxia Status: Acute (8) Pneumonia Status: Acute (9) Pneumonia Status: Acute (10) Sinusitis Status: Acute (11) SOB (shortness of breath) Status: Acute Review of Systems Constitutional: No fever Respiratory: + cough, + sputum, No wheezing Cardiac: No chest pain Abdomen: No pain Objective Vital Signs Date Time Temp Pulse Resp B/P Pulse Ox O2 Delivery O2 Flow Rate FiO2 11/14/16 15:54 36.5 80 25 163/64 95 Nasal Cannula 5.0 11/14/16 15:30 Nasal Cannula 4.0 11/14/16 14:31 80 20 96 Nasal Cannula 4.0 11/14/16 12:00 Nasal Cannula 4.0 11/14/16 11:26 36.5 73 21 128/65 96 Nasal Cannula 4.0 11/14/16 10:55 78 20 95 Nasal Cannula 4.0 11/14/16 08:03 36.6 80 23 143/79 95 Nasal Cannula 4.0 11/14/16 08:00 Nasal Cannula 4.0 11/14/16 08:00 95 Nasal Cannula 4.0 11/14/16 07:14 80 20 95 Nasal Cannula 4.0 11/14/16 04:00 97 BiPAP 35 11/14/16 04:00 36.6 81 19 145/74 97 BiPAP 35 11/14/16 00:05 98 BiPAP 35 11/14/16 00:00 36.5 80 20 167/85 98 BiPAP 35 11/13/16 21:10 81 98 40 11/13/16 20:00 93 Nasal Cannula 4.0 11/13/16 19:44 82 20 96 Nasal Cannula 5.0 11/13/16 19:15 36.6 82 24 146/77 95 Nasal Cannula 4.0 Physical Exam General Appearance: no apparent distress, + obese ENT: pharynx normal Neck: no JVD Respiratory/Chest: no respiratory distress, no accessory muscle use, + decreased breath sounds (bases), + wheezing (end-exp - slight ) Cardiovascular: no gallop, no murmur, + pertinent finding (irregular (ectopy)) Abdomen: normal bowel sounds, non tender, soft, no organomegaly Extremities: + pedal edema, + swelling (1+ b/l ) Neurologic/Psychiatric: alert, oriented x 3 Skin: + pertinent finding (stasis changes b/l shins) Laboratory Results Last 24 Hours Test 11/13/16 19:58 11/14/16 06:51 11/14/16 07:31 11/14/16 11:26 Bedside Glucose 186 mg/dl 206 mg/dl 210 mg/dl Creatinine 0.71 mg/dl Est Creatinine Clear Calc Drug Dose 108.2 ml/min Estimated GFR () 98.6 Estimated GFR (Non- 85.1 Test 11/14/16 16:32 Bedside Glucose 218 mg/dl Assessment and Plan 71yo female: 1. acute on chronic cor pulmonale / diastolic CHF - BUN & Cr had risen with diuresis earlier this week. Diuretics held, now creatinine is normal again. CXR today with ongoing pulm edema & effusions. Resume diuresis with bumex 1mg IV x 1 and follow clinically. 2. acute on chronic hypoxic & hypercarbic respiratory failure - stable, but pt reports worsening symptoms today. appreciate pulmonary consultation & recommendations. continue BIPAP as recommended by Dr. Gutierrez. CT chest w/ bibasilar infiltrates - could be left over infiltrates from previous pneumonia and/or atelectasis. Sed rate/CRP minimally elevated. Defer on antibiotics for now. Steroids have been stopped. Diurese as noted above. 3. a. fib - now in NSR. Cont xarelto. Continue diltiazem 240 mg PO qd. Is this contributing to fluid retention? 4. morbid obesity with BMI of 65 - PT, OT. 5. concern of dysphagia - speech evaluation appreciated; swallow eval normal. 6. uncontrolled T2DM - increase lantus to 25 units BID; cont correction factor of 12 and carb ratio of 1:4. 7. HTN - control acceptable. 8. hyperlipidemia - cont statin. 9. deconditioning - PT/OT evals appreciated 10. hypothyroidism - cont synthroid; TSH is compensated. 11. Depression and anxiety - continue sertraline 50 mg PO qd and alprazolam 1 mg PO BID prn. 12. DVT proph - xarelto. updated at bedside once gain dispo - [facility] Continued [facility] stay due to: ambulation difficulties, multiple IV medications needed Discharge planning: rehab hospital
[2016-11-14] MEDS: RIVAROXABAN 20 MG TAB PO SCH (21:12)
[2016-11-14] MEDS: ATORVASTATIN 40 MG TAB PO SCH (21:12)
[2016-11-15] VITALS (11 sets, daily range): BP systolic 127–150; BP diastolic 60–68; PULSE 59–88; TEMP 36.4–36.6; O2SAT 93–97
[2016-11-15] MEDS: LEVOTHYROXINE 50 MCG TAB PO SCH (05:20)
[2016-11-15 06:42] LABS: HEMATOCRIT 39.3 % (37-47); MEAN CORPUSCULAR HEMOGLOBIN 29.4 pg (25-34); MEAN CORPUSCULAR HGB CONC 32.3 g/dl (32-36); MEAN PLATELET VOLUME 9.9 fL (7.4-10.4); PLATELET COUNT 148 K/uL (130-400); RED BLOOD COUNT 4.32 M/uL (4.2-5.4); WHITE BLOOD COUNT 5.93 K/uL (4.8-10.8)
[2016-11-15 06:50] LABS: BUN/CREATININE RATIO 35.5 (10-20); CALCIUM 8.8 mg/dl (8.5-10.1); CREATININE 0.74 mg/dl (0.60-1.20); POTASSIUM 3.9 mmol/L (3.5-5.1)
[2016-11-15] MEDS: ALBUT/IPRATROP 3MG/0.5MG NEB 3 ML VIAL INH SCH ×4 (07:07→19:21)
--- NOTE | 2016-11-15 07:27 | PROGRESS NOTE ---
DATE: 11/15/2016 HISTORY OF PRESENT ILLNESS: The patient is comfortable this morning. She tolerated the BiPAP well last night. She has had some frequent urination. She has received some Bumex at 1445 yesterday intravenously, at least it was ordered at that time. She has a fairly good shoulder shrug and good inspiratory effort when asked to do so. She is not sure how well she is doing with the incentive spirometry. She is awake, alert and oriented. She states she does feel better. PHYSICAL EXAMINATION: VITAL SIGNS: Stable. Blood pressure 150/68, oxygen saturation 97% on 4 liters and she is afebrile. I\T\O is 475 in and 1325 out on the , unknown yesterday. Her weight on the standing scale is 147.6 kilograms but she was in the 170 range on the bed scale, so I am not sure exactly how accurate that is today. Her vital signs are stable, but she has had some atrial flutter. She states she was out of bed in the chair yesterday and had some mild dyspnea with exertion, was able to tolerate that well. Oxygen saturations in 90% range and the atrial flutter persists. She tolerated the BiPAP well. HEENT AND NECK: Reveals a very small posterior pharynx with no thrush is noted. No evidence of upper airway noted. I cannot see any neck vein distention or HJR, but she is massively obese. No nodes are noted. She has a good shoulder shrug, is able to lift her arms up off the bed. She has difficulty with sitting up. She is on an air bed. She is able to roll over with help. HEART: Regular rate and rhythm at about 80 beats per minute. No murmurs are heard. LUNGS: Reveal decreased breath sounds bilaterally. Few crackles at the left base posterior. ABDOMEN: Soft and massively obese, nontender. EXTREMITIES: She has no cyanosis, clubbing or edema. LABORATORY AND IMAGING DATA: Chest x-ray continues to show bibasilar atelectasis with moderate sized right pleural effusion and evidence of heart failure. PRP is pending for today as is the CBC. Sugars have been in the 174-210 range. IMPRESSION: 1. Bibasilar atelectasis. 2. Pleural effusion. 3. Heart failure. 4. Respiratory failure with hypoventilation. 5. Atrial flutter. RECOMMENDATIONS: 1. Continue on BiPAP. 2. Continue on diuresis. I am going to recheck the PRP today. If CO2 is rising, a blood gas perhaps should be done. Overall, she is stable.
[2016-11-15] MEDS: MICONAZOLE NITRATE POWDER 43 GM EXT SCH ×2 (07:43→20:57)
[2016-11-15] MEDS: FLUTICASONE PROP HFA INH 44 MCG INHALER INH SCH ×2 (07:44→20:57)
[2016-11-15] MEDS: METOPROLOL SUCC 50MG EXT REL TAB PO SCH (07:44)
[2016-11-15] MEDS: MAGNESIUM OXIDE 400 MG TAB PO SCH (07:44)
[2016-11-15] MEDS: SERTRALINE HCL 50 MG TAB PO SCH (07:44)
[2016-11-15] MEDS: DOCUSATE SODIUM 100 MG CAP PO SCH ×2 (07:44→20:57)
[2016-11-15] MEDS: GUAIFENESIN 600 MG TABCR PO SCH ×2 (07:45→20:56)
[2016-11-15] MEDS: ALLOPURINOL 100 MG TAB PO SCH (07:45)
[2016-11-15] MEDS: INSULIN GLARGINE SOLOSTAR 100 UNITS/ML 3 ML PEN SC SCH ×2 (07:52→20:59)
[2016-11-15] MEDS ORDERED: METOPROLOL SUCC 50MG EXT REL TAB PO ONE (08:00)
[2016-11-15] MEDS ORDERED: BUMETANIDE IV 1 MG in SYRINGE 0 ML IV ONE (08:00)
[2016-11-15] MEDS: DILTIAZEM HCL 240 MG CAPCR PO SCH (08:25)
--- NOTE | 2016-11-15 08:45 | Medical Consult ---
Consultation Note Date of Service Nov 15, 2016. Consultation Note Consult Dictated #[id number]
[2016-11-15] MEDS ORDERED: METOPROLOL SUCC 50MG EXT REL TAB PO SCH (09:00)
--- NOTE | 2016-11-15 09:07 | CONSULTATION REPORT ---
DATE OF CONSULTATION: 11/15/2016 REASON FOR CONSULTATION: Pleural effusion. HISTORY OF PRESENT ILLNESS: This is a morbidly obese 71-year-old female who is now on her third admission within the last month to [facility]. The patient was previously admitted from October 19 through to [facility] secondary to pneumonia as well as an Escherichia coli urinary tract infection. She was treated appropriately with Levaquin. The patient was discharged home and upon return home, the patient experienced some shortness of breath with exertion and returned to [facility] and was readmitted to the hospital from October 23 through . At that time, she was admitted with a diagnosis of congestive heart failure exacerbation. Following that admission, she was discharged to acute rehabilitation. The patient was most recently admitted to [facility] on November 09 secondary to an acute exacerbation of diastolic CHF, cor pulmonale and acute on chronic respiratory failure. The patient had imaging studies that revealed the patient did have bilateral pleural effusions and diuresis has implemented at the discretion of the medical service. Despite attempts at diuresis, the patient has had persistent pleural effusions and we are now asked to see her for consideration of thoracentesis. I did question the patient on numerous symptoms and that she says that her ambulation is limited even when she is feeling well; however, she denies any recent falls. She denies any head injuries, visual changes, tinnitus or sore throat. She denies any neck pain or chest pain. She says she does get short of breath with activity. She does admit to some orthopnea as well as occasional paroxysmal nocturnal dyspnea. She does report lower extremity edema. At the present time, she is resting comfortably in chair and is not short of breath at rest. She denies abdominal pain, nausea, vomiting or diarrhea. Currently, she denies any dysuria. She denies any history of seizure. She has no history of DVT or PE. A most recent laboratory work was done today, which showed a CBC with hemoglobin, hematocrit, platelet count and white blood cell count were all in normal range. Coagulation studies showed an INR of 1.2 and a PTT of 32.1. Chemistry profile today shows sodium, potassium and creatinine all within normal range with slightly elevated BUN at 26. Imaging studies this admission revealed a chest x-ray on November 08 that showed moderate pulmonary edema and bilateral pleural effusions. CT scan of the chest was performed on November 12 that did show, the patient had upper lobe airspace opacities that were felt to be consistent with an infectious or inflammatory pneumonitis. The patient was also noted to have pleural effusions on this study. Repeat chest x-ray was performed on November 14 that did show moderate right pleural effusion. PAST MEDICAL HISTORY: Includes the followin. Lymphedema. 2. History of diastolic CHF with most recent echocardiogram showing an ejection fraction of 60%. 3. Atrial flutter. 4. Diabetes. 5. Endometrial cancer. 6. Hypertension. 7. Obesity. 8. Hypothyroidism. 9. Hyperlipidemia. 10. Depression. 11. Anxiety. ALLERGIES: SHE IS ALLERGIC TO PENICILLIN, PETROLEUM MINERAL OIL AND METRONIDAZOLE. HOME MEDICATIONS: Include, 1. Toprol 150 mg daily. 2. Potassium chloride 20 mEq twice daily. 3. Mucinex 1200 mg every 12 hours. 4. Lantus insulin 25 units twice daily. 5. Allopurinol 100 mg daily. 6. Mag ox 400 mg daily. 7. Zoloft 50 mg daily. 8. Diltiazem 240 mg daily. 9. Synthroid 50 mcg daily. 10. Lipitor 40 mg daily. 11. Colace 100 mg twice daily. 12. Flovent twice daily. 13. Desenex twice daily. 14. Xarelto 20 mg daily. 15. Sliding scale insulin. 16. P.r.n. DuoNebs. 17. P.r.n. Tylenol. 18. P.r.n. Maalox. 19. P.r.n. milk of magnesia. 20. P.r.n. MiraLax. SOCIAL HISTORY: She is a lifetime nonsmoker. FAMILY HISTORY: Positive for hypertension. REVIEW OF SYSTEMS: See above. PHYSICAL EXAMINATION: VITAL SIGNS: The patient is afebrile with temperature 36.5, pulse 78 and regular, respirations are 20 and unlabored, blood pressure 150/68, and pulse ox 95% on 4 liters. SKIN: Warm with good turgor. GENERAL: She is alert. She is oriented x3. She is in no distress. She is morbidly obese. HEENT: Head is atraumatic and normocephalic. EYES: Pupils equal, round and reactive to light and accommodation. Extraocular motions are intact. EARS: Auditory acuity is grossly intact. NOSE: Nasal patency was intact. Sinuses are nontender. MOUTH: Moist without exudates. NECK: Supple. No JVD is noted. There is no tracheal shift or stridor. CARDIOVASCULAR: Regular rate and rhythm. LUNGS: The patient's lungs revealed decreased breath sounds at the bases, right greater than left. She was not using accessory muscles to aid in respiration. ABDOMEN: Rotund and soft and nontender. EXTREMITIES: Revealed no cyanosis or clubbing. She was noted to have peripheral lower extremity edema. NEUROLOGIC: Revealed cranial nerves II through XII are grossly intact. No focal deficits are noted. DIAGNOSTIC DATA: As noted above. IMPRESSION: A 71-year-old female with pleural effusions, right greater than left. PLAN: We will consider performing a thoracentesis on this patient. As the patient is on Xarelto, we will hold this medication today. She did receive her most recent dose yesterday evening. I have discussed with the primary service and they say it is acceptable we will hold this medication. Prior to performing a thoracentesis, we will perform a bedside ultrasound to see if there is an easily accessible fluid pocket and if so we will proceed with this procedure and send the fluid for a necessary studies. I have discussed at length with the patient and her at bedside, outlined the potential benefits versus risks of performing this procedure. Risks include, but are not limited to bleeding, infection and pneumothorax as well as fluid recurrence. Benefits would clearly be the patient may have improvement in her respiratory status. The patient did express her understanding and is agreeable to proceed as I have just outlined. HEATH
[2016-11-15] MEDS: POTASSIUM CHLORIDE 20 MEQ TABCR PO SCH ×2 (09:08→20:56)
[2016-11-15] MEDS: INSULIN ASPART 100 UNITS/ML 3 ML PEN SC SCH ×4 (09:12→20:58)
--- NOTE | 2016-11-15 14:34 | SURGICAL CONSULTATION ---
DATE OF CONSULTATION: 11/15/2016 DATE OF CONSULTATION: 11/15/2016. REASON FOR CONSULTATION: Pleural effusion. HISTORY OF PRESENT ILLNESS: This 71-year-old morbidly obese female who has been admitted at least 3 times to [facility] in the last month with pneumonia. She also had a urinary tract infection with E. coli and has marked shortness of breath and dyspnea and a pleural effusion may play a role in the symptoms. She underwent a CT scan which showed a significant right pleural effusion. The patient is morbidly obese and there is a question about an intervention for this fluid. The patient had a ejection fraction of 60% but apparently has a history of diastolic dysfunction with congestive heart failure. She has lymphedema. She also suffers from atrial flutter and has a history of endometrial carcinoma in the past. I was asked to see her for this effusion. For details of the full consultation please refer to Mr. Lawrence Alvarez PA-C's consultation from earlier Today. The patient is on Xarelto. That has been held today and tomorrow. I will perform a therapeutic and diagnostic right thoracentesis under ultrasound guidance. The patient and her both have agreed to this after we had a discussion about possible problems including bleeding and an iatrogenic pneumothorax. HEATH
--- NOTE | 2016-11-15 19:10 | Progress Note ---
Subjective Date of Service: Nov 15, 2016. Subjective Pt evaluation today including: conversation w/ patient, conversation w/ family ( at bedside), physical exam, chart review, lab review, conversation w/ foreign law consultant (CT surgery; pulmonary), review of inpatient medication list Pain: denies any painful location PO Intake: normal Voiding: no voiding problems (with some incontinence at times) tele overnight with rate-controlled a. fib she "feels better" - when asked what is better she reports her breathing less cough today less dyspnea no other new complaints Problem List Medical Problems: (1) Abdominal pain, epigastric Status: Acute (2) Acute bronchitis Status: Acute (3) Bleeding Status: Acute (4) Congestive heart failure (CHF) Status: Acute (5) Failure of outpatient treatment Status: Acute (6) Generalized weakness Status: Acute (7) Hypoxia Status: Acute (8) Pneumonia Status: Acute (9) Pneumonia Status: Acute (10) Sinusitis Status: Acute (11) SOB (shortness of breath) Status: Acute Review of Systems Respiratory: + cough Cardiac: No chest pain Abdomen: No pain Objective Vital Signs Date Time Temp Pulse Resp B/P Pulse Ox O2 Delivery O2 Flow Rate FiO2 11/15/16 16:00 Nasal Cannula 4.0 11/15/16 15:27 36.6 59 34 146/67 97 Nasal Cannula 4.0 11/15/16 15:10 79 20 97 Nasal Cannula 4.0 11/15/16 12:21 36.4 77 24 127/67 93 Nasal Cannula 4.0 11/15/16 12:00 Nasal Cannula 11/15/16 11:01 69 25 95 Nasal Cannula 4.0 11/15/16 08:38 36.6 78 20 133/60 97 Nasal Cannula 4.0 11/15/16 08:00 Nasal Cannula 11/15/16 07:07 78 20 95 Nasal Cannula 4.0 11/15/16 04:12 36.5 79 20 150/68 97 Nasal Cannula 4.0 11/15/16 04:00 96 Nasal Cannula 4.0 11/14/16 23:59 96 BiPAP 35 11/14/16 23:58 36.7 80 22 156/96 96 BiPAP 11/14/16 21:23 80 94 35 11/14/16 20:01 80 20 95 Nasal Cannula 4.0 11/14/16 19:21 Nasal Cannula 4.0 11/14/16 19:06 36.5 79 33 156/73 95 Nasal Cannula 5.0 Physical Exam General Appearance: no apparent distress, + obese ENT: pharynx normal Neck: no JVD (nothing apparent sitting upright in chair) Respiratory/Chest: no respiratory distress, no accessory muscle use, + decreased breath sounds (both bases, worse on right; no wheezes) Cardiovascular: no gallop, no murmur, + irregularly irregular Abdomen: normal bowel sounds, non tender, soft, no organomegaly Extremities: + pedal edema, + swelling (2+ b/l, some of which is lymphedema) Neurologic/Psychiatric: alert, oriented x 3 Skin: + pertinent finding (stasis changes b/l legs ) Laboratory Results Last 24 Hours Test 11/14/16 20:39 11/15/16 05:33 11/15/16 06:49 11/15/16 11:29 Bedside Glucose 174 mg/dl 128 mg/dl 192 mg/dl White Blood Count 5.93 K/uL Red Blood Count 4.32 M/uL Hemoglobin 12.7 g/dL Hematocrit 39.3 % Mean Corpuscular Volume 91.0 fL Mean Corpuscular Hemoglobin 29.4 pg Mean Corpuscular Hemoglobin Concent 32.3 g/dl RDW Standard Deviation 56.8 fL RDW Coefficient of Variation 16.9 % Platelet Count 148 K/uL Mean Platelet Volume 9.9 fL Sodium Level 139 mmol/L Potassium Level 3.9 mmol/L Chloride Level 91 mmol/L Carbon Dioxide Level 43 mmol/L Anion Gap 5.0 mmol/L Blood Urea Nitrogen 26 mg/dl Creatinine 0.74 mg/dl Est Creatinine Clear Calc Drug Dose 96.7 ml/min Estimated GFR () 93.8 Estimated GFR (Non- 80.9 BUN/Creatinine Ratio 35.5 Random Glucose 118 mg/dl Calcium Level 8.8 mg/dl Total Bilirubin 0.9 mg/dl Direct Bilirubin 0.3 mg/dl Aspartate Amino Transf (AST/SGOT) 38 U/L Alanine Aminotransferase (ALT/SGPT) 32 U/L Alkaline Phosphatase 111 U/L Total Protein 6.1 gm/dl Albumin 2.6 gm/dl Test 11/15/16 16:05 Bedside Glucose 124 mg/dl Assessment and Plan 71yo female: 1. acute on chronic cor pulmonale / diastolic CHF - BUN & Cr had risen with diuresis earlier this week. Diuretics held, creatinine normalized, diuresis resumed on 11/14/16. Bumex IV again today. Repeat labs in am. Increase BB due to uncontrolled BPs. 2. b/l pleural effusions, worse on right - thoracic surgery consult w/ Dr. Herman. hold xarelto plan for thoracentesis on right tomorrow under u/s guidance this should help dyspnea 3. acute on chronic hypoxic & hypercarbic respiratory failure - acute 2nd to CHF, effusions, etc no evidence of pneumonia appreciate pulmonary consultation & recommendations. continue BIPAP CT chest w/ bibasilar infiltrates - could be left over infiltrates from previous pneumonia and/or atelectasis. Sed rate/CRP minimally elevated. Defer on antibiotics for now. Steroids have been stopped. Diurese as noted above. 4. a. fib - cont diltiazem; cont BB hold xarelto 5. morbid obesity with BMI of 65 - PT, OT. 6. uncontrolled T2DM - improved; no changes in lantus or novolog today leave correction factor of 12 and carb ratio of 1:4. 7. HTN - uncontrolled; increase BB to 150mg daily. 8. hyperlipidemia - cont statin. 9. deconditioning - PT/OT evals appreciated; needs rehab 10. hypothyroidism - cont synthroid; TSH is compensated. 11. Depression and anxiety - continue sertraline 50 mg PO qd and alprazolam 1 mg PO BID prn. 12. DVT proph - xarelto. if held for long period add SCDs updated at bedside once again dispo - [facility] Continued [facility] stay due to: ambulation difficulties, multiple IV medications needed Discharge planning: rehab hospital
[2016-11-15] MEDS: ATORVASTATIN 40 MG TAB PO SCH (20:56)
[2016-11-16] VITALS (14 sets, daily range): BP systolic 126–149; BP diastolic 57–80; PULSE 71–78; TEMP 36.4–36.8; O2SAT 94–98
[2016-11-16] MEDS: LEVOTHYROXINE 50 MCG TAB PO SCH (05:40)
[2016-11-16 06:39] LABS: BUN/CREATININE RATIO 34.4 (10-20); CALCIUM 8.4 mg/dl (8.5-10.1); CREATININE 0.63 mg/dl (0.60-1.20); POTASSIUM 3.9 mmol/L (3.5-5.1)
[2016-11-16] MEDS: ALBUT/IPRATROP 3MG/0.5MG NEB 3 ML VIAL INH SCH ×4 (07:03→20:00)
[2016-11-16] MEDS: INSULIN GLARGINE SOLOSTAR 100 UNITS/ML 3 ML PEN SC SCH ×2 (07:40→21:34)
[2016-11-16] MEDS: DOCUSATE SODIUM 100 MG CAP PO SCH ×2 (07:41→21:00)
[2016-11-16] MEDS: METOPROLOL SUCC 50MG EXT REL TAB PO SCH (07:42)
[2016-11-16] MEDS: MAGNESIUM OXIDE 400 MG TAB PO SCH (07:42)
[2016-11-16] MEDS: SERTRALINE HCL 50 MG TAB PO SCH (07:42)
[2016-11-16] MEDS: ALLOPURINOL 100 MG TAB PO SCH (07:43)
[2016-11-16] MEDS: POTASSIUM CHLORIDE 20 MEQ TABCR PO SCH ×2 (07:43→21:27)
[2016-11-16] MEDS: DILTIAZEM HCL 240 MG CAPCR PO SCH (07:43)
[2016-11-16] MEDS: GUAIFENESIN 600 MG TABCR PO SCH ×2 (07:44→21:27)
[2016-11-16] MEDS: FLUTICASONE PROP HFA INH 44 MCG INHALER INH SCH ×2 (07:45→21:26)
[2016-11-16] MEDS: MICONAZOLE NITRATE POWDER 43 GM EXT SCH ×2 (07:46→21:26)
[2016-11-16] MEDS: INSULIN ASPART 100 UNITS/ML 3 ML PEN SC SCH ×4 (08:03→21:00)
[2016-11-16] MEDS: BUMETANIDE IV 1 MG in SYRINGE 0 ML IV SCH ×2 (12:08→16:53)
--- NOTE | 2016-11-16 15:26 | Progress Note ---
Subjective Date of Service: Nov 16, 2016. Subjective Pt evaluation today including: conversation w/ patient, conversation w/ family ( at bedside), physical exam, chart review, lab review, review of inpatient medication list Pain: denies PO Intake: normal Voiding: montesinos catheter in place (at pt's request montesinos placed back today) no issues overnight telemetry stable - a. fib/flutter with good rate control minimal cough still with CELAYA some diarrhea reported by staff Problem List Medical Problems: (1) Abdominal pain, epigastric Status: Acute (2) Acute bronchitis Status: Acute (3) Bleeding Status: Acute (4) Congestive heart failure (CHF) Status: Acute (5) Failure of outpatient treatment Status: Acute (6) Generalized weakness Status: Acute (7) Hypoxia Status: Acute (8) Pneumonia Status: Acute (9) Pneumonia Status: Acute (10) Sinusitis Status: Acute (11) SOB (shortness of breath) Status: Acute Review of Systems Constitutional: No fever Respiratory: + cough, + dyspnea on exertion, No sputum, No wheezing Cardiac: No chest pain Abdomen: No pain Objective Vital Signs Date Time Temp Pulse Resp B/P Pulse Ox O2 Delivery O2 Flow Rate FiO2 11/16/16 12:00 96 Nasal Cannula 4.0 11/16/16 11:25 36.4 77 25 130/67 96 Nasal Cannula 5.0 Humidified Oxygen 11/16/16 11:00 76 20 98 Nasal Cannula 4.0 11/16/16 08:00 96 Nasal Cannula 4.0 11/16/16 07:03 36.4 78 24 136/80 96 Nasal Cannula 5.0 Humidified Oxygen 11/16/16 07:03 78 20 98 Nasal Cannula 4.0 11/16/16 04:39 36.6 71 126/63 98 Nasal Cannula 4.0 11/16/16 04:00 96 Nasal Cannula 4.0 11/16/16 00:16 36.6 71 20 149/61 96 BiPAP 11/16/16 00:01 96 BiPAP 11/15/16 23:11 77 96 35 11/15/16 20:00 Nasal Cannula 4.0 11/15/16 19:33 36.4 88 16 130/63 96 Nasal Cannula 4.0 11/15/16 19:22 73 18 95 Nasal Cannula 4.0 11/15/16 16:00 Nasal Cannula 4.0 11/15/16 15:27 36.6 59 34 146/67 97 Nasal Cannula 4.0 Physical Exam General Appearance: no apparent distress, + obese ENT: pharynx normal Neck: no JVD (nothing obvious on exam) Respiratory/Chest: no respiratory distress, no accessory muscle use, + decreased breath sounds (right base worse than left base ), + rales (base, left) Cardiovascular: no gallop, no murmur, + irregularly irregular Abdomen: normal bowel sounds, non tender, soft, no organomegaly Extremities: + swelling (no change from previous exams) Neurologic/Psychiatric: alert, oriented x 3 Skin: + rash (stasis changes b/l shins with dry skin/scale and hyperpigmentation ) Laboratory Results Last 24 Hours Test 11/15/16 16:05 11/15/16 19:43 11/16/16 05:30 11/16/16 07:04 Bedside Glucose 124 mg/dl 186 mg/dl 107 mg/dl Sodium Level 139 mmol/L Potassium Level 3.9 mmol/L Chloride Level 95 mmol/L Carbon Dioxide Level 40 mmol/L Anion Gap 4.0 mmol/L Blood Urea Nitrogen 22 mg/dl Creatinine 0.63 mg/dl Est Creatinine Clear Calc Drug Dose 113.5 ml/min Estimated GFR () 103.9 Estimated GFR (Non- 89.6 BUN/Creatinine Ratio 34.4 Random Glucose 111 mg/dl Calcium Level 8.4 mg/dl Magnesium Level 2.0 mg/dl Test 11/16/16 11:22 Bedside Glucose 125 mg/dl Assessment and Plan 71yo female: 1. acute on chronic cor pulmonale / diastolic CHF - slow improvement. BUN and Cr stable. Cont bumex diuresis 1mg IV BID. Daily BMP and mag at least QOD. Cont BB. 2. b/l pleural effusions, worse on right - thoracic surgery consult w/ Dr. Herman appreciated. holding xarelto for likely thoracentesis on right today under u/s guidance 3. acute on chronic hypoxic & hypercarbic respiratory failure - acute 2nd to CHF, effusions, atelectasis, etc no evidence of pneumonia appreciate pulmonary consultation & recommendations. continue BIPAP CT chest w/ bibasilar infiltrates - could be left over infiltrates from previous pneumonia and/or atelectasis. Sed rate/CRP minimally elevated. continue diuresis 4. a. fib - cont diltiazem; cont BB; holding xarelto due to #2 5. morbid obesity with BMI of 59 - PT, OT. 6. uncontrolled T2DM - improved; again no changes in lantus or novolog today leave correction factor of 12 and carb ratio of 1:4. 7. HTN - improved control with increase in toprol xl to 150mg daily. 8. hyperlipidemia - cont statin. 9. deconditioning - PT/OT evals appreciated; needs rehab 10. hypothyroidism - cont synthroid; TSH is compensated. 11. Depression and anxiety - continue sertraline 50 mg PO qd and alprazolam 1 mg PO BID prn. 12. DVT proph - xarelto. added SCDs updated dispo - [facility] Continued [facility] stay due to: ambulation difficulties, multiple IV medications needed Discharge planning: rehab hospital
--- NOTE | 2016-11-16 15:54 | OPERATIVE REPORT ---
DATE OF OPERATION: 11/16/2016 PREOPERATIVE DIAGNOSIS: Respiratory insufficiency with large right pleural effusion. POSTOPERATIVE DIAGNOSIS: Same. PROCEDURE PERFORMED: Right thoracentesis under ultrasound guidance. SURGEON: Dr. Herman. SPECIFICS OF THE PROCEDURE: The patient is morbidly obese. Sitting upright I evaluated her chest and found a window for tapping her fluid. I marked this with indelible ink and then prepped and draped in the usual sterile fashion. A timeout was called. I than raised a skin wheal with a 25 gauge needle and 1% Xylocaine and then used a large bore needle to anesthetize the deeper tissues and went above a rib and got free flowing rust colored fluid. Guidewire was inserted and needle removed. Introducer sheath was slid over the guidewire and then removed. A triple lumen catheter was then slid in 17 cm. 850 mL of a rust colored fluid was drained. There was no blood noted. She tolerated it well after I removed the catheter and put an antimicrobial dressing on. A chest x-ray is pending. We drained about 850 mL and I think it was drained dry. She has reexpansion coughing but really no pain. I attest to the content of the Intraoperative Record and any orders documented therein. Any exceptions are noted below. MTDD
--- NOTE | 2016-11-16 16:00 | DIAGNOSTIC IMAGING REPORT ---
SINGLE VIEW CHEST CLINICAL HISTORY: Status post thoracentesis. Pleural effusions. CHF. FINDINGS: An AP, portable, upright chest radiograph is compared to study dated 11/14/2016 and correlated with chest CT dated 11/12/2016. The examination is degraded by portable technique, large body habitus, and patient rotation. The heart is enlarged and there is atherosclerotic calcification of the thoracic aorta. Pulmonary vascular congestion appears modestly improved from 11/14/2016. There are small pleural effusions with bibasilar atelectasis. The right pleural effusion has decreased in size from 11/14/2016. No pneumothorax is seen. The skeletal structures are osteopenic. The bony thorax is grossly intact. IMPRESSION: 1. Cardiomegaly with evidence of congestive failure. This has modestly improved from 11/14/2016. 2. No pneumothorax is identified post procedure. 3. Bilateral pleural effusions and atelectasis. The right pleural effusion appears decreased in size from 11/14/2016. Electronically signed by: Ryan Montero M.D. 11/16/2016 3:59 PM Dictated Date/Time: 11/16/2016 3:56 PM
[2016-11-16 16:31] LABS: PLEURAL FLUID TOTAL PROTEIN 2.9 g/dl
[2016-11-16 17:09] LABS: PLEURAL FLUID APPEARANCE BLOODY; PLEURAL FLUID COLOR RED; PLEURAL FLUID MONONUC RELAT 83.7 %; PLEURAL FLUID POLYNUC 16.3 %; PLEURAL FLUID SOURCE RIGHT LUNG; PLEURAL FLUID WBC (A) 1037 /uL
[2016-11-16] MEDS: ATORVASTATIN 40 MG TAB PO SCH (21:27)
[2016-11-16] MEDS: RIVAROXABAN 20 MG TAB PO SCH (22:15)
[2016-11-17] VITALS (16 sets, daily range): BP systolic 123–142; BP diastolic 52–75; PULSE 64–78; TEMP 36.4–37; O2SAT 94–98
[2016-11-17] MEDS: LEVOTHYROXINE 50 MCG TAB PO SCH (05:47)
[2016-11-17 06:23] LABS: CREATININE 0.78 mg/dl (0.60-1.20)
[2016-11-17] MEDS: ALBUT/IPRATROP 3MG/0.5MG NEB 3 ML VIAL INH SCH ×4 (06:57→18:56)
[2016-11-17] MEDS: FLUTICASONE PROP HFA INH 44 MCG INHALER INH SCH ×2 (07:37→20:13)
[2016-11-17] MEDS: METOPROLOL SUCC 50MG EXT REL TAB PO SCH (07:38)
[2016-11-17] MEDS: DOCUSATE SODIUM 100 MG CAP PO SCH ×2 (07:38→20:14)
[2016-11-17] MEDS: ALLOPURINOL 100 MG TAB PO SCH (07:38)
[2016-11-17] MEDS: SERTRALINE HCL 50 MG TAB PO SCH (07:38)
[2016-11-17] MEDS: MAGNESIUM OXIDE 400 MG TAB PO SCH (07:38)
[2016-11-17] MEDS: POTASSIUM CHLORIDE 20 MEQ TABCR PO SCH ×2 (07:39→20:15)
[2016-11-17] MEDS: GUAIFENESIN 600 MG TABCR PO SCH ×2 (07:39→20:14)
[2016-11-17] MEDS: DILTIAZEM HCL 240 MG CAPCR PO SCH (07:39)
[2016-11-17] MEDS: INSULIN ASPART 100 UNITS/ML 3 ML PEN SC SCH ×4 (07:43→20:20)
[2016-11-17] MEDS: INSULIN GLARGINE SOLOSTAR 100 UNITS/ML 3 ML PEN SC SCH ×2 (07:43→20:21)
--- NOTE | 2016-11-17 08:12 | PULMONARY PROGRESS NOTE ---
DATE: 11/17/2016 The patient is comfortable this morning. She tolerated the BiPAP well last night without difficulty. She had a thoracentesis with removal of 800 mL of rust-colored fluid. Evaluation is pending. Atrial flutter persists. She states she feels comfortable. She was up in therapy, was able to stand for 5 minutes, working her arms up over her head without holding onto the walker. She was out of bed most of the day yesterday. She states she is considerably improved now than she was at the time of admission. PHYSICAL EXAMINATION: VITAL SIGNS: Stable and she is afebrile, blood pressure 135/52, pulse 70 with atrial flutter, and the oxygen saturation 95% on BiPAP with 35% FiO2. IO, 1 liter in, 1750 out. No weight is done since 11/14/2016. Nurses' notes and medications reviewed. HEENT: Posterior pharynx looks good. Nose exam is unremarkable. No excoriations are noted over the face. NECK: There is no neck vein distention or HJR, but she is obese, it is difficult to see the neck veins. HEART: Regular rate and rhythm. LUNGS: Reveal decreased breath sounds bilaterally with poor excursions of the thorax. ABDOMEN: Soft, massively obese. EXTREMITIES: She continues to have edema of the lower extremities. The thoracentesis fluid showed a white count of 1037, red count 38,000, with predominant mononuclear cells with an LDH of 129, a protein of only 2.9. Cholesterol is pending. Glucose is only 135, suggests that this probably is a transudate. Gram stain revealed many mononuclear cells with a few inflammatory cells and no organisms are seen. AFB is pending. Blood cultures are negative. Post-procedure chest x-ray showed improvement in the right-sided pleural effusion, no pneumothorax is noted, changes consistent with cardiomegaly, pulmonary edema noted, although that is improved. IMPRESSION: 1. Respiratory failure related to hypoventilation syndrome. 2. Diastolic heart failure. 3. Right-sided pleural effusion. This probably is transudate. The cholesterol is pending. Cultures are pending, although it does not appear to be infected. I think this has helped her respiratory status. 4. Massive obesity. RECOMMENDATIONS: 1. Continue with good therapy. That will be the main treatment for her at this point. 2. Continue with good diuresis and follow the BUN and creatinine carefully. I would follow the CO2 as well. It was 40 yesterday on the electrolytes, showing that she is stable. 3. I will continue on DuoNeb and Flovent, avoid any steroids systemically or orally for right now. 4. Continue on BiPAP each time she sleeps. Overall, she is considerably improved. MTDD
--- NOTE | 2016-11-17 08:27 | DIAGNOSTIC IMAGING REPORT ---
SINGLE VIEW CHEST CLINICAL HISTORY: Pleural effusion. CHF. FINDINGS: An AP, portable, upright chest radiograph is compared to study dated 11/16/2016 and correlated with chest CT dated 11/12/2016. The examination is degraded by portable technique, large body habitus, apical lordotic positioning, and patient rotation. The heart is enlarged and there is atherosclerotic calcification of the thoracic aorta. Pulmonary vascular congestion is unchanged from yesterday. Small pleural effusions with bibasilar consolidation are also unchanged. No pneumothorax is seen. The skeletal structures are osteopenic. The bony thorax is grossly intact. IMPRESSION: 1. Cardiomegaly with evidence of congestive failure, not significant change from yesterday. 2. Bilateral pleural effusions with associated consolidation are also unchanged. Electronically signed by: Ryan Montero M.D. 11/17/2016 8:26 AM Dictated Date/Time: 11/17/2016 8:25 AM
--- NOTE | 2016-11-17 08:34 | SURGERY PROGRESS NOTE ---
DATE: 11/17/2016 Ms. Arellano is seen today on 11/17/2016. She looks better. She states that she feels better. She has been afebrile. On BiPAP, her oxygenation was in the mid 90s. She still has decreased breath sounds of course given her body habitus; however, she is subjectively better. The 850 mL of fluid we drained yesterday is a transudate with an LDH of 129. Glucose is 135. No organisms seen on her Gram stain. Her x-ray did show some clearing of the fluid on the right. ASSESSMENT AND PLAN: Benign right pleural effusion. Probably related to her congestive heart failure.
[2016-11-17 08:37] LABS: BUN/CREATININE RATIO 29.9 (10-20); CREATININE 0.82 mg/dl (0.60-1.20); POTASSIUM 3.9 mmol/L (3.5-5.1)
[2016-11-17] MEDS: BUMETANIDE IV 1 MG in SYRINGE 0 ML IV SCH (09:00)
[2016-11-17] MEDS: MICONAZOLE NITRATE POWDER 43 GM EXT SCH ×2 (09:00→20:13)
[2016-11-17] MEDS ORDERED: BUMETANIDE IV 2 MG in SYRINGE 0 ML IV ONE (09:45)
[2016-11-17] MEDS ORDERED: POTASSIUM CHLORIDE 10 MEQ TABCR PO STA (16:30)
[2016-11-17 17:45] LABS: BUN/CREATININE RATIO 26.5 (10-20); CALCIUM 8.7 mg/dl (8.5-10.1); MAGNESIUM 1.9 mg/dl (1.8-2.4); POTASSIUM 3.8 mmol/L (3.5-5.1)
[2016-11-17] MEDS ORDERED: BUMETANIDE IV 2 MG in SYRINGE 0 ML IV SCH (18:00)
--- NOTE | 2016-11-17 19:12 | Progress Note ---
Subjective Date of Service: Nov 17, 2016. Subjective Pt evaluation today including: conversation w/ patient, physical exam, chart review, lab review, review of studies (cxr), review of inpatient medication list Pain: denies any chest or back pain PO Intake: normal Voiding: montesinos catheter in place tele with rate-controlled a. flutter "I FEEL BETTER TODAY!" She can take bigger breaths and is not as short of breath as previous having normal bowel movements in better spirits today as well Problem List Medical Problems: (1) Abdominal pain, epigastric Status: Acute (2) Acute bronchitis Status: Acute (3) Bleeding Status: Acute (4) Congestive heart failure (CHF) Status: Acute (5) Failure of outpatient treatment Status: Acute (6) Generalized weakness Status: Acute (7) Hypoxia Status: Acute (8) Pneumonia Status: Acute (9) Pneumonia Status: Acute (10) Sinusitis Status: Acute (11) SOB (shortness of breath) Status: Acute Review of Systems Constitutional: No fever Respiratory: + dyspnea on exertion, No cough, No dyspnea at rest Cardiac: No chest pain Abdomen: No pain Objective Vital Signs Date Time Temp Pulse Resp B/P Pulse Ox O2 Delivery O2 Flow Rate FiO2 11/17/16 18:57 68 20 98 Nasal Cannula 3.0 11/17/16 16:00 Nasal Cannula 4.0 11/17/16 15:58 36.6 64 22 142/67 97 Nasal Cannula 3.0 Humidified Oxygen 11/17/16 15:51 76 20 97 Nasal Cannula 3.0 11/17/16 12:00 65 11/17/16 12:00 Nasal Cannula 4.0 11/17/16 11:02 78 20 98 Nasal Cannula 3.0 11/17/16 10:48 36.7 77 20 131/75 95 Nasal Cannula 3.0 11/17/16 08:00 Nasal Cannula 4.0 11/17/16 07:32 36.5 76 20 130/69 94 Nasal Cannula 3.0 11/17/16 06:57 76 20 97 Nasal Cannula 3.0 11/17/16 04:00 95 BiPAP 4.0 35 11/17/16 03:49 37.0 71 20 135/52 95 BiPAP 11/17/16 03:29 71 97 35 11/17/16 00:01 96 BiPAP 4.0 35 11/16/16 23:39 36.8 74 18 126/60 96 BiPAP 11/16/16 20:59 36.7 77 20 135/57 94 11/16/16 20:20 73 96 35 11/16/16 20:00 96 Nasal Cannula 4.0 Physical Exam General Appearance: no apparent distress, + obese ENT: pharynx normal Neck: no JVD Respiratory/Chest: no respiratory distress, no accessory muscle use, + pertinent finding (better airation right base; mild rales right base; minimal rales left base) Cardiovascular: no gallop, no murmur, + irregularly irregular Abdomen: normal bowel sounds, non tender, soft, no organomegaly Extremities: + swelling (no change in edema) Neurologic/Psychiatric: alert, oriented x 3 Skin: + pertinent finding (unchanged venous stasis changes on legs) Laboratory Results Last 24 Hours Test 11/16/16 20:49 11/17/16 05:34 11/17/16 07:10 11/17/16 11:41 Bedside Glucose 93 mg/dl 92 mg/dl 139 mg/dl Sodium Level 139 mmol/L Potassium Level 3.9 mmol/L Chloride Level 95 mmol/L Carbon Dioxide Level 39 mmol/L Anion Gap 5.0 mmol/L Blood Urea Nitrogen 25 mg/dl Creatinine 0.82 mg/dl Est Creatinine Clear Calc Drug Dose 87.2 ml/min Estimated GFR () 82.9 Estimated GFR (Non- 71.5 BUN/Creatinine Ratio 29.9 Random Glucose 99 mg/dl Calcium Level 8.0 mg/dl Test 11/17/16 16:08 11/17/16 16:58 Bedside Glucose 146 mg/dl Sodium Level 137 mmol/L Potassium Level 3.8 mmol/L Chloride Level 93 mmol/L Carbon Dioxide Level 36 mmol/L Anion Gap 8.0 mmol/L Blood Urea Nitrogen 27 mg/dl Creatinine 1.00 mg/dl Est Creatinine Clear Calc Drug Dose 71.5 ml/min Estimated GFR () 65.2 Estimated GFR (Non- 56.2 BUN/Creatinine Ratio 26.5 Random Glucose 165 mg/dl Calcium Level 8.7 mg/dl Magnesium Level 1.9 mg/dl Assessment and Plan 71yo female: 1. acute on chronic cor pulmonale / diastolic CHF - ongoing improvement. BUN and Cr stable. Cont bumex diuresis 1mg IV BID. Cont BB. BMP in am. 2. b/l pleural effusions, worse on right - s/p thoracentesis 11/16/16. Appreciate Dr. Herman's assistance. Fluid appears transudative, likely 2nd to CHF. No evidence of infection. Path is pending but suspect will be negative. She feels better today. Xarelto resumed. cxr w/o complicating pneumothorax. 3. acute on chronic hypoxic & hypercarbic respiratory failure - slowly improving. acute 2nd to CHF, effusions, atelectasis, etc chronic 2nd to restrictive lung disease from morbid obesity, OHS, JACKIE, etc. continue BIPAP continue diuresis 4. a. fib - cont diltiazem; cont BB; xarelto resumed. Controlled during her entire telemetry stay. 5. morbid obesity with BMI of 59 - PT, OT for severe deconditioning. 6. T2DM - now controlled with lantus/novolog. leave correction factor of 12 and carb ratio of 1:4. 7. HTN - controlled 8. hyperlipidemia - cont statin. 9. deconditioning - PT/OT evals appreciated; needs rehab 10. hypothyroidism - cont synthroid; TSH is compensated. 11. Depression and anxiety - continue sertraline 50 mg PO qd and alprazolam 1 mg PO BID prn. 12. DVT proph - xarelto. updated dispo - [facility] ok to tx to med/surg Continued [facility] stay due to: ambulation difficulties, multiple IV medications needed, other (CHF) Discharge planning: rehab hospital
[2016-11-17] MEDS: ATORVASTATIN 40 MG TAB PO SCH (20:15)
[2016-11-17] MEDS: RIVAROXABAN 20 MG TAB PO SCH (20:16)
[2016-11-17] MEDS ORDERED: MAGNESIUM OXIDE 400 MG TAB PO SCH (21:00)
[2016-11-18] VITALS (10 sets, daily range): BP systolic 106–126; BP diastolic 63–77; PULSE 51–78; TEMP 36.7; O2SAT 92–99
[2016-11-18 06:27] LABS: CALCIUM 8.1 mg/dl (8.5-10.1); CREATININE 0.82 mg/dl (0.60-1.20); POTASSIUM 3.6 mmol/L (3.5-5.1)
[2016-11-18] MEDS: LEVOTHYROXINE 50 MCG TAB PO SCH (07:36)
--- NOTE | 2016-11-18 07:36 | PROGRESS NOTE ---
DATE: 11/18/2016 SUBJECTIVE: The patient is comfortable this morning. She has been moved from downstairs up to room 423. She states she feels comfortable this morning. She was out of bed yesterday without difficulty. She does have some Tegaderm on her back. She denies pain. She has dyspnea with exertion, was able to stand now in therapy by herself for at least 5 minutes without difficulty. She sleeps with BIPAP at night. OBJECTIVE: VITAL SIGNS: Stable. Oxygen saturation is 99% on BiPAP of 35% FIO2 on 3 liters, her oxygen sats are 98%, blood pressure 123/67 yesterday. IO is 2315 in and 2050 out. No weight has been done; weight may not be accurate since she was weighed on different scales. She has appeared to have more of an output than input since 11/13/2016. Medications were reviewed. HEENT: Nose exam unremarkable. She has a very small posterior pharynx with no thrush noted. NECK: There is no neck vein distention or HJR, but she is so obese it will be difficult to see neck veins. HEART: Regular rate and rhythm. Heart sounds are distant. LUNGS: Reveal decreased breath sounds bilaterally. I do not detect any rales. ABDOMEN: Soft and massively obese. EXTREMITIES: She has less edema of the lower extremities. She is able to lift her legs off the bed. Shoulder shrug is good. She can lift her arms up over her head. LABORATORY WORKUP: Revealed a sed rate of 44 and 28. PRP yesterday shows a CO2 of 37 which is nicely improved with the addition of an ST rate to the BiPAP. Magnesium was 1.9. Thoracentesis result showed no significant growth on the pleural fluid for bacteria. Blood cultures are unremarkable. AFB smear was negative. Of course the cultures from that are pending. The pleural fluid pathology is pending as well. Cholesterol in the pleural fluid is pending, appears it is transudate with a protein of 2.9 and LDH of 129. IMPRESSION: 1. Respiratory failure with hypercapnia and hypoxemia secondary to hypoventilation syndrome, congestive heart failure. 2. Profound obesity, hypoventilation syndrome, improved. 3. Bilateral pleural effusion status post thoracentesis, right hemithorax. This appears to be transudative. 4. Atrial flutter, stable. 5. Diabetes mellitus. 6. History of endometrial carcinoma. RECOMMENDATIONS: 1. Continue on BiPAP each time the patient sleeps; Her settings should be the same with continued rate when she is sleeping. 2. A 1500 mg sodium diet. Follow PRP, carefully recheck hemoglobin and hematocrit. 3. Decrease the oxygen. She may be able to be maintained on 1 or 2 liters during the day or maybe no oxygen at all during the daytime. Mobilization, physical therapy, stretching and weight reduction are the valladares to her care at this point. Overall, she is stable. MTDD
[2016-11-18] MEDS: FLUTICASONE PROP HFA INH 44 MCG INHALER INH SCH ×2 (07:38→20:59)
[2016-11-18] MEDS: MICONAZOLE NITRATE POWDER 43 GM EXT SCH ×2 (07:38→20:58)
[2016-11-18] MEDS: DOCUSATE SODIUM 100 MG CAP PO SCH ×2 (07:41→20:59)
[2016-11-18] MEDS: DILTIAZEM HCL 240 MG CAPCR PO SCH (07:41)
[2016-11-18] MEDS: MAGNESIUM OXIDE 400 MG TAB PO SCH (07:42)
[2016-11-18] MEDS: POTASSIUM CHLORIDE 20 MEQ TABCR PO SCH ×3 (07:42→20:59)
[2016-11-18] MEDS: METOPROLOL SUCC 50MG EXT REL TAB PO SCH (07:44)
[2016-11-18] MEDS: ALLOPURINOL 100 MG TAB PO SCH (07:44)
[2016-11-18] MEDS: SERTRALINE HCL 50 MG TAB PO SCH (07:45)
[2016-11-18] MEDS: GUAIFENESIN 600 MG TABCR PO SCH ×2 (07:46→20:59)
[2016-11-18] MEDS: BUMETANIDE IV 1 MG in SYRINGE 0 ML IV SCH (07:47)
[2016-11-18] MEDS: ALBUT/IPRATROP 3MG/0.5MG NEB 3 ML VIAL INH SCH ×4 (07:54→20:08)
[2016-11-18] MEDS: INSULIN ASPART 100 UNITS/ML 3 ML PEN SC SCH ×4 (09:42→21:00)
[2016-11-18] MEDS: INSULIN GLARGINE SOLOSTAR 100 UNITS/ML 3 ML PEN SC SCH ×2 (09:49→21:05)
--- NOTE | 2016-11-18 10:10 | SURGERY PROGRESS NOTE ---
DATE: 11/18/2016 DATE: 11/18/2016. Ms. Arellano is seen today. She has now been moved up to the fourth floor. She is doing much better in therapy. Draining her fluid seems to have had an effect. The fact that she is up moving now is quite encouraging. Her pleural fluid is probably a transudate. However, we have not had an LDH and I will order a serum LDH today to make sure but I do not think this would require any more workup. We are awaiting for cytology. She is on 3 liters with 97% saturation today and I think looks better. She has had an LDH done but I am going to order one.
[2016-11-18] MEDS ORDERED: BUMETANIDE IV 1 MG in SYRINGE 0 ML IV ONE (10:30)
[2016-11-18] MEDS: BUMETANIDE IV 2 MG in SYRINGE 0 ML IV SCH (17:37)
[2016-11-18] MEDS: RIVAROXABAN 20 MG TAB PO SCH (20:59)
[2016-11-18] MEDS: ATORVASTATIN 40 MG TAB PO SCH (20:59)
[2016-11-19] VITALS (9 sets, daily range): BP systolic 91–140; BP diastolic 55–94; PULSE 70–83; TEMP 36.3–37; O2SAT 92–100
[2016-11-19] MEDS: LEVOTHYROXINE 50 MCG TAB PO SCH (04:44)
[2016-11-19] MEDS: ALBUT/IPRATROP 3MG/0.5MG NEB 3 ML VIAL INH SCH ×4 (07:50→19:41)
[2016-11-19] MEDS: MAGNESIUM OXIDE 400 MG TAB PO SCH (08:12)
[2016-11-19] MEDS: DOCUSATE SODIUM 100 MG CAP PO SCH ×2 (08:12→20:41)
[2016-11-19] MEDS: POTASSIUM CHLORIDE 20 MEQ TABCR PO SCH ×3 (08:12→20:42)
[2016-11-19] MEDS: FLUTICASONE PROP HFA INH 44 MCG INHALER INH SCH ×2 (08:12→20:00)
[2016-11-19] MEDS: DILTIAZEM HCL 240 MG CAPCR PO SCH (08:12)
[2016-11-19] MEDS: METOPROLOL SUCC 50MG EXT REL TAB PO SCH (08:13)
[2016-11-19] MEDS: ALLOPURINOL 100 MG TAB PO SCH (08:13)
[2016-11-19] MEDS: SERTRALINE HCL 50 MG TAB PO SCH (08:13)
[2016-11-19] MEDS: GUAIFENESIN 600 MG TABCR PO SCH ×2 (08:13→20:43)
[2016-11-19] MEDS: BUMETANIDE IV 2 MG in SYRINGE 0 ML IV SCH ×2 (08:14→17:05)
[2016-11-19] MEDS: INSULIN GLARGINE SOLOSTAR 100 UNITS/ML 3 ML PEN SC SCH ×2 (08:22→20:51)
[2016-11-19] MEDS: MICONAZOLE NITRATE POWDER 43 GM EXT SCH ×2 (09:21→20:00)
[2016-11-19 09:22] LABS: BUN/CREATININE RATIO 18.5 (10-20); CALCIUM 8.7 mg/dl (8.5-10.1); CREATININE 0.92 mg/dl (0.60-1.20); MAGNESIUM 1.9 mg/dl (1.8-2.4); POTASSIUM 3.7 mmol/L (3.5-5.1)
[2016-11-19] MEDS: INSULIN ASPART 100 UNITS/ML 3 ML PEN SC SCH ×4 (09:23→20:51)
--- NOTE | 2016-11-19 10:58 | PULMONARY PROGRESS NOTE ---
DATE: 11/19/2016 10:30 a.m. SUBJECTIVE: The patient is feeling overall much better. She has been here for an extensive stay. Her respiratory failure has overall much improved. The patient is awake and alert. She states that she has been able to walk to the bathroom with minimal assistance. She is not coughing much. She has very little recall of the early part of her hospital stay. She is having no chest pains. OBJECTIVE: GENERAL: The patient appeared comfortable at rest. VITAL SIGNS: Temperature is 36.5. Heart rate was 72 per minute. Blood pressure 126/67. HEENT: Eye exam suggested prior cataract surgeries. Nares were clear. Mouth exam showed a Mallampati grade 2 pharynx. NECK: Palpation of the neck reveals no lymph nodes. She does have a large neck. LUNGS: Lung figueroa were showing very diminished breath sounds bilaterally. She did relate that after the thoracentesis procedure, she felt she could breathe better. The dressing from that procedure is still in place. ABDOMEN: Very obese. Bowel sounds are present. There was no tenderness to palpation or definite mass. LOWER EXTREMITIES: Continue to show skin discoloration from chronic venous insufficiency. The legs are mildly edematous. There are still areas of erythema. LABORATORY DATA: Her Marino bag from today already has 1400 mL of urine. Yesterday, she did have a negative fluid balance of minus 2640. The patient last had an arterial blood gas back on November 11, at which time her pCO2 was still 99. Electrolytes today show a sodium of 139, potassium 3.7, chloride 97, and bicarbonate 32. Her bicarbonate has improved a lot. Back on November 13, the bicarbonate was 47. Review of the pleural fluid analysis shows there is lot of RBCs. Total protein was low at 2.9. Pleural fluid was 129. Serum LDH was checked on November 18 and was 273. This also would be compatible with a transudate. The cytology from pleural fluid is still pending. IMPRESSIONS: 1. Respiratory failure with hypoxia and hypercarbia - improved. 2. Obesity hypoventilation syndrome. 3. Probable obstructive sleep apnea. 4. Pleural effusion - transudate. COMMENTS AND RECOMMENDATIONS: The patient is clinically doing well. She is currently being maintained on bumetanide 2 mg b.i.d. She is getting potassium supplementation. She is on Flovent. She is on Xarelto. Most importantly, she is still wearing the BiPAP. The patient's oxygen levels are being maintained too high for what we ideally would like, taking into account her severe hypercarbia. Earlier in her hospital stay, we had asked to keep her saturations lower at between 88 and 92%, approximately. I believe that still should be the case. We will help stimulate her respirations as such. Overall, her progress has been very good.
--- NOTE | 2016-11-19 16:43 | SURGERY PROGRESS NOTE ---
DATE: 11/19/2016 Ms. Arellano was seen today. She is sitting up in a chair. She feels much better, states she participated in physical therapy today. I think her lungs sound a bit better. I think this probably has more to do with her activity and the fact that she is up than draining this fluid. Her pathology is not back on her pleural fluid. Her LDH was 273. Technically speaking, this is not an exudate.
--- NOTE | 2016-11-19 19:16 | Hospitalist Progress Note ---
Hospitalist Progress Note Date of Service Nov 19, 2016. Subjective Pt evaluation today including: conversation w/ patient, physical exam, chart review, lab review, review of studies, review of inpatient medication list The patient reports feeling much better. She has been able to ambulate in her room. She does normally live with her . She feels that she will require rehab at [facility] prior to going home. No chest pain. No SOB, No cough. Additional Comments: A 10 system review was performed and all were negative. Positives were placed in the subjective section. Objective Vital Signs Date Time Temp Pulse Resp B/P Pulse Ox O2 Delivery O2 Flow Rate FiO2 11/19/16 16:04 36.3 70 20 140/94 100 3.0 11/19/16 16:02 Nasal Cannula 3.0 11/19/16 15:27 71 16 93 Nasal Cannula 3.0 11/19/16 11:28 83 14 92 Nasal Cannula 3.0 11/19/16 11:10 Nasal Cannula 3.0 11/19/16 08:45 36.5 71 20 126/67 98 Nasal Cannula 3.0 11/19/16 07:50 73 14 96 Nasal Cannula 3.0 11/19/16 00:28 37.0 73 20 91/55 96 BiPAP 3.0 11/19/16 00:00 99 BiPAP 11/18/16 22:08 77 97 35 11/18/16 21:52 Nasal Cannula 3.0 11/18/16 20:08 73 14 98 Nasal Cannula 3.0 Physical Exam Notes: GEN: Awake, alert, and oriented x 3. Not in acute distress HEENT: Tm's intact, no inflammation, EOMI, PERRLA, MMM Neck: Soft, supple Lungs: CTA b/l, no r/r/w Heart: REG, nrl S1S2 without murmurs, rubs or gallops Abdomen: Soft, NT, ND, + BS EXT: No C/C/E NEURO: CN's II-XII grossly intact, non-focal Skin: warm, dry, no rashes PSYCH: pleasant, cooperative. Laboratory Results Last 24 Hours Test 11/18/16 20:31 11/19/16 08:04 11/19/16 08:20 11/19/16 11:25 Bedside Glucose 106 mg/dl 79 mg/dl 100 mg/dl Sodium Level 139 mmol/L Potassium Level 3.7 mmol/L Chloride Level 97 mmol/L Carbon Dioxide Level 32 mmol/L Anion Gap 10.0 mmol/L Blood Urea Nitrogen 17 mg/dl Creatinine 0.92 mg/dl Est Creatinine Clear Calc Drug Dose 77.7 ml/min Estimated GFR () 72.1 Estimated GFR (Non- 62.2 BUN/Creatinine Ratio 18.5 Random Glucose 78 mg/dl Calcium Level 8.7 mg/dl Magnesium Level 1.9 mg/dl Test 11/19/16 16:14 Bedside Glucose 114 mg/dl Assessment and Plan 1. Acute on chronic cor pulmonale / diastolic CHF - ongoing improvement. 2. B/L pleural effusions, worse on right - s/p thoracentesis 11/16/16. 3. acute on chronic hypoxic & hypercarbic respiratory failure - Patient has oxygen at home already. 4. A. fib - cont diltiazem; cont beta markos; xarelto for anticoagulation. 5. morbid obesity with BMI of 59 - PT, OT for severe deconditioning. Patient plans to go to [facility] upon discharge. 6. Type II DM - controlled with lantus/novolog. 7. HTN - controlled 8. hyperlipidemia - cont statin. 9. DVT prophylaxis is covered by Xarelto.
[2016-11-19] MEDS: RIVAROXABAN 20 MG TAB PO SCH (20:43)
[2016-11-19] MEDS: ATORVASTATIN 40 MG TAB PO SCH (20:43)
[2016-11-20] VITALS (7 sets, daily range): BP systolic 123–156; BP diastolic 69–73; PULSE 72–86; TEMP 36.2–36.8; O2SAT 93–99
[2016-11-20] MEDS: LEVOTHYROXINE 50 MCG TAB PO SCH (05:29)
[2016-11-20 06:58] LABS: CREATININE 0.92 mg/dl (0.60-1.20)
[2016-11-20] MEDS: ALBUT/IPRATROP 3MG/0.5MG NEB 3 ML VIAL INH SCH ×3 (07:14→15:21)
[2016-11-20] MEDS: GUAIFENESIN 600 MG TABCR PO SCH (07:55)
[2016-11-20] MEDS: ALLOPURINOL 100 MG TAB PO SCH (07:56)
[2016-11-20] MEDS: SERTRALINE HCL 50 MG TAB PO SCH (07:56)
[2016-11-20] MEDS: METOPROLOL SUCC 50MG EXT REL TAB PO SCH (07:56)
[2016-11-20] MEDS: DOCUSATE SODIUM 100 MG CAP PO SCH (07:57)
[2016-11-20] MEDS: POTASSIUM CHLORIDE 20 MEQ TABCR PO SCH ×2 (07:57→12:38)
[2016-11-20] MEDS: MAGNESIUM OXIDE 400 MG TAB PO SCH (07:58)
[2016-11-20] MEDS: BUMETANIDE IV 2 MG in SYRINGE 0 ML IV SCH (07:58)
[2016-11-20] MEDS: DILTIAZEM HCL 240 MG CAPCR PO SCH (07:59)
[2016-11-20] MEDS: FLUTICASONE PROP HFA INH 44 MCG INHALER INH SCH (08:00)
[2016-11-20] MEDS: MICONAZOLE NITRATE POWDER 43 GM EXT SCH (08:03)
--- NOTE | 2016-11-20 08:54 | SURGERY PROGRESS NOTE ---
DATE: 11/20/2016 DATE: 11/20/2016. Ms. Arellano is seen today. She states that she "had the best night I have had since all this started". She is eating breakfast. She walked 30 feet yesterday. She got up and got to the bathroom a couple of times. This is remarkable given the fact that this woman is 71 years old and is morbidly obese. Her lungs sound better to me. The final cytology on the pleural fluid is of benign etiology. At this point, I would not do another intervention but would manage her medically. Should this recur, we would be glad to put a PleurX in.
[2016-11-20] MEDS: INSULIN ASPART 100 UNITS/ML 3 ML PEN SC SCH ×3 (09:17→16:40)
[2016-11-20] MEDS: INSULIN GLARGINE SOLOSTAR 100 UNITS/ML 3 ML PEN SC SCH (09:18)
--- NOTE | 2016-11-20 11:18 | Pulmonology Progress Note ---
Pulmonary Progress Note Date of Service Nov 20, 2016. Attending Dr. Walters Subjective Feeling improved today. Reports some discomfort with the BiPAP but states she understands improtance and can tolerate wihtout difficulty. Went to therapy today ambulating > 200' - tolerated well. Denies pain, fevers, oral discomfort, or respiratory distress. Objective 71-yo female admitted to [facility] through the ER 11/08/16 from [facility] with AMS , generalized weakness and dyspnea. PMHx includes: In 2013 she had been admitted s/p fall with weakness and new dx of atrial flutter, diastolic HF and obesity hypoventilation syndrome- CO2 retention. She has followed with cardiology and on anticoagulation since that time. She initially was unable to tolerate BiPAP and therefore was prescribed O2 via NC. Other h/o includes: endometrial CA, chronic lymphedema, hirsutism, HTN, hypothyroid, morbid obesity, and DM II. She was recently admitted 10/20- with weakness and respiratory symptoms. W/U notable for imaging with CXR and CT chest consistent with bilateral pleural effusion Rt > Left with pulmonary edema and associated consolidative changes. Echocardiogram 11/08/16: limited study but EF 55-60%, moderate LVH, reduced RV function, elevated RVSP 39mmHg estimated. She was treated with BiPAP with widened ventilatory pressures: i20/e12, diuresis, bronchodilators, and tapered steroids with significant improvement. 11/16/16 thoracentesis notable for evacuation of 850mL kaitlyn colored fluid (WBC: 1037, RBC: 38K, Protein: pf2.9/ s6.1, LDH: pf129/s278, glucose: 135, amylase: 30, cholesterol: pending) with cultures rare MSSA and no malignant cells. CO2 retention improving. Today: - O2 95-100% between BiPAP - RA - No new labs - Weight: 161kg - Discharge planning in progress [facility] Physical Exam: Constitutional: Chronically ill appearing morbidly obese female sitting in wheelchair at bedside. No acute distress Head: + facial symmetry Eyes: EOMi, PERRLA, no injection Mouth: Moist mucous membranes. Dental work presents. NO lesions, erythema or exudate Neck: Widened circumference with posterior fat pad. No visible masses Respiratory: non-labored but shallow respirations. Fine crackles at bases bilaterally Left > right. No wheeze, rales or rhonchi. Bronchial breath sounds right anterior . CV: Regular rate. Unable to auscultate any murmur. : Marino catheter draining yellow non-purulent urine MSK/Extremities: Scattered areas of superficial ecchymosis on UEs. Bilateral LEs with edema and extensive venous stasis changes. No purulence Neurologic: A&O. Good data recall. Cooperative. Appropriate affect. Assessment & Plan 71-yo female presented with pulmonary edema/ pleural effusion and obesity hypoventilation syndrome: Clinically improving in current regimen - 1. Continue BiPAP QHS and with napping: i20/e12 2. Daily weights 3. Continue Flovent BID and duo-nebs Data Medications: Current Inpatient Medications Medications (Trade) Dose Ordered Sig/Johnnie Route Start Time Stop Time Status Last Admin Dose Admin Acetaminophen (Tylenol Tab) 650 mg Q4H PRN PO 11/08/16 13:30 12/08/16 13:29 Al Hydrox/Mg Hydrox/Simethicone (Maalox Max Susp) 15 ml Q4H PRN PO 11/08/16 13:30 12/08/16 13:29 Magnesium Hydroxide (Milk Of Magnesia Susp) 30 ml Q12H PRN PO 11/08/16 13:30 12/08/16 13:29 Polyethylene (Miralax Powder Packet) 17 gm DAILY PRN PO 11/08/16 13:30 12/08/16 13:29 Insulin Aspart (novoLOG ASPART) SLIDING SCALE If C... ACHS SC 11/08/16 16:00 12/08/16 15:59 11/20/16 09:17 17 UNITS Glucose (Glucose 40% Gel) 15-30 GRAMS 15 GRAMS... UD PRN PO 11/08/16 13:30 12/08/16 13:29 Glucose (Glucose Chew Tab) 4-8 Tablets 4 Tabl... UD PRN PO 11/08/16 13:30 12/08/16 13:29 Dextrose (Dextrose 50% 50ML Syringe) 25-50ML OF 50% DW IV FOR... UD PRN IV 11/08/16 13:30 12/08/16 13:29 Glucagon (Glucagon Inj) 1 mg UD PRN SQ 11/08/16 13:30 12/08/16 13:29 Albuterol/ Ipratropium (Duoneb) 3 ml QIDR INH 11/08/16 16:00 12/08/16 15:59 11/19/16 19:41 3 ML Allopurinol (Zyloprim Tab) 100 mg DAILY PO 11/09/16 09:00 12/09/16 08:59 11/20/16 07:56 100 MG Alprazolam (Xanax Tab) 1 mg BID PRN PO 11/08/16 13:30 12/08/16 13:29 11/10/16 07:15 1 MG Atorvastatin Calcium (Lipitor Tab) 40 mg QPM PO 11/08/16 21:00 12/08/16 20:59 11/19/16 20:43 40 MG Docusate Sodium (coLACE CAP) 100 mg BID PO 11/08/16 21:00 12/08/16 20:59 11/20/16 07:57 100 MG Fluticasone Propionate (Flovent Hfa 44MCG Inhaler) 1 puffs BID INH 11/08/16 21:00 12/08/16 20:59 11/20/16 08:00 1 PUFFS Levothyroxine Sodium (Synthroid Tab) 50 mcg DAILYBB PO 11/09/16 06:00 12/09/16 06:59 11/20/16 05:29 50 MCG Magnesium Oxide (Mag-Ox Tab) 400 mg DAILY PO 11/09/16 09:00 12/09/16 08:59 11/20/16 07:58 400 MG Miconazole Nitrate (Desenex Powder) 1 appln BID EXT 11/08/16 21:00 12/08/16 20:59 11/20/16 08:03 1 APPLN Rivaroxaban (Xarelto Tab) 20 mg QPM PO 11/08/16 21:00 12/08/16 20:59 Future hold 11/19/16 20:43 20 MG Sertraline HCl (Zoloft Tab) 50 mg DAILY PO 11/09/16 09:00 12/09/16 08:59 11/20/16 07:56 50 MG Diltiazem HCl (Cardizem Cd Cap) 240 mg QAM PO 11/09/16 09:00 12/09/16 08:59 11/20/16 07:59 240 MG Guaifenesin (Mucinex Contr Rel Tab) 1,200 mg Q12 PO 11/14/16 10:45 12/14/16 10:44 11/20/16 07:55 1,200 MG Metoprolol Succinate (Toprol Xl Tab) 150 mg QAM PO 11/16/16 09:00 12/16/16 08:59 11/20/16 07:56 150 MG Insulin Glargine 23 unit 23 unit BID SC 11/17/16 21:00 12/17/16 20:59 11/20/16 09:18 23 UNIT Bumetanide/Syringe (Bumex IV/ Syringe) 8 ml @ 4 mls/min DAILY@ IV 11/18/16 17:00 12/18/16 16:59 11/20/16 07:58 4 MLS/MIN Potassium Chloride (Klor-Con Tab) 20 meq TID PO 11/18/16 14:00 12/18/16 13:59 11/20/16 07:57 20 MEQ I & O: 24-Hour Column 11/20/16 08:00 Intake Total 460 ml Output Total 3350 ml Balance -2890 ml Vital Signs: Date Time Temp Pulse Resp B/P Pulse Ox O2 Delivery O2 Flow Rate FiO2 11/20/16 08:00 Nasal Cannula 3.0 11/20/16 07:01 36.6 72 19 123/73 96 Room Air 11/20/16 00:00 36.8 72 18 128/70 99 BiPAP 3.0 11/20/16 00:00 BiPAP 3.0 11/19/16 22:43 70 95 35 11/19/16 20:00 Nasal Cannula BiPAP 11/19/16 19:42 77 16 95 Nasal Cannula 3.0 11/19/16 16:04 36.3 70 20 140/94 100 3.0 11/19/16 16:02 Nasal Cannula 3.0 11/19/16 15:27 71 16 93 Nasal Cannula 3.0 11/19/16 11:28 83 14 92 Nasal Cannula 3.0 11/19/16 11:10 Nasal Cannula 3.0 Laboratory Results: Last 24 Hours Test 11/19/16 11:25 11/19/16 16:14 11/19/16 20:14 11/20/16 06:15 Bedside Glucose 100 mg/dl 114 mg/dl 181 mg/dl Creatinine 0.92 mg/dl Est Creatinine Clear Calc Drug Dose 82.4 ml/min Estimated GFR () 72.1 Estimated GFR (Non- 62.2 Test 11/20/16 07:31 Bedside Glucose 141 mg/dl
[2016-11-20] MEDS ORDERED: TPRSR50 PO (13:32)
[2016-11-20] MEDS ORDERED: MCRK20 PO (13:32)
[2016-11-20] MEDS ORDERED: BMX1 PO (13:32)
[2016-11-20] MEDS ORDERED: INSDGIPEN SC (13:32)
--- NOTE | 2016-11-20 13:45 | Discharge Instructions ---
Discharge Instructions Date of Service Nov 20, 2016. Admission Reason for Admission: Congestive Heart Failure, Hypoxia Discharge Discharge Diagnosis / Problem: Cor Pulmonale/ Atrial fibrillation/pleural effusion Right. Discharge Goals Goal(s): Decrease discomfort, Improve function Activity Recommendations Activity Limitations: resume your previous activity . Instructions / Follow-Up Instructions / Follow-Up Call your Primary Care doctor if any of the following symptoms or problems start or get worse: * Shortness of breath or difficulty breathing * Wake up at night short of breath * Chest pain * Cough * Swelling of your hands, feet, or legs * More fatigued or tired with your normal activity * Palpitations - sudden fast heart beats WEIGHT * Weigh yourself every morning after using the bathroom. * Use the same scale. * Wear the same amount of clothing. * Write your weight down on a chart. * Call your Primary Care doctor if you gain more than 2-3 pounds in 1-2 days. MEDICATIONS * Use this discharge instruction sheet for medication instructions. * Take your medications at the time your doctor ordered. * Do not skip a dose of your medicines. * If you miss a dose of medicine, take it as soon as possible, but DO NOT DOUBLE A DOSE. * Read your medicine information when you get home. * Know all of the side effects of your medicine. If in doubt, ask your pharmacist * Call your Primary Care doctor's office if you have any side effects. * Be sure all of your doctors know what medicine and herbs you take (including cold, flu, and herbal medicine). Take the following with you to your follow-up doctor appointments: * Weight Chart * Medication List * List of questions Do not drink excessive alcohol, beer or wine. Wear BiPap during hours of sleep. Current Hospital Diet Patient's current hospital diet: Low Sodium Diet (2gm Na), Diabetes Type 2 Diet Discharge Diet Recommended Diet: Low Sodium Diet (2gm Na), Diabetes Type 2 Diet Procedures Procedures Performed: Thoracentesis (Right). Pending Studies Studies pending at discharge: no Laboratory Results Last 24 Hours Test 11/19/16 16:14 11/19/16 20:14 11/20/16 06:15 11/20/16 07:31 Bedside Glucose 114 mg/dl 181 mg/dl 141 mg/dl Creatinine 0.92 mg/dl Est Creatinine Clear Calc Drug Dose 82.4 ml/min Estimated GFR () 72.1 Estimated GFR (Non- 62.2 Test 11/20/16 11:23 Bedside Glucose 112 mg/dl Hemoglobin A1c Test 09/29/16 10:15 Range/Units Estimated Average Glucose 148 mg/dl Hemoglobin A1c 6.8 H 4.5-5.6 % Medical Emergencies . Who to Call and When: Call 911 or go to the Emergency Room if: * If at any time you feel your situation is an emergency * You have tightness or pain in your chest that does not go away with rest or Nitroglycerin * You are very short of breath even with rest . Non-Emergent Contact Non-Emergency issues call your: Primary Care Provider . . "Provider Documentation" section prepared by Jack Booker. VTE Core Measure Inpt VTE Proph given/why not?: Other Anticoagulation (Xarelto), SCD's
[2016-11-20] MEDS ORDERED: BUMETANIDE 1 MG TAB PO SCH (17:00)
--- NOTE | 2016-11-20 19:50 | Discharge Summary ---
Discharge Summary Date of Service Nov 20, 2016. Discharge Summary Admission Date: Nov 08, 2016 at 13:41 Discharge Date: Nov 20, 2016 Discharge Disposition: Rehab Principal Diagnosis: Cor Pulmonale Problems/Secondary Diagnoses: Right pleural effusion/ A.fib/A.flutter/Type II DM Immunizations: Have You Had Influenza Vaccine: Unknown Influenza Vaccine Date: Jul 25, 2012 History of Tetanus Vaccine?: Unknown History of Pneumococcal: Unknown History of Hepatitis B Vaccine: Unknown Procedures: Thoracentesis 11/16/16 Consultations: CT surgery, Dr. Leonardo Herman Pulmonology, Dr. Gutierrez and Dr. Walters. Medication Reconciliation New Medications: Bumetanide (Bumetanide) 1 Mg Tab 2 MG PO BID17 for 15 Days, #60 TAB 0 Refills Insulin Glargine (Lantus Solostar) 100 Unit/Ml Inj 23 UNIT SC BID for 15 Days, #690 UNITS 0 Refills Metoprolol Succinate (Metoprolol Succinate ER) 50 Mg Tabcr 150 MG PO QAM for 15 Days, #45 0 Refills Potassium Chloride (Klor-Con M20) 20 Meq Tabcr 20 MEQ PO TID for 15 Days, #45 0 Refills Continued Medications: Allopurinol (Zyloprim) 100 Mg Tab 100 MG PO DAILY AT 1200, TAB Alprazolam (Xanax) 1 Mg Tab 1 MG PO BID PRN for Anxiety, TAB Atorvastatin (Lipitor) 40 Mg Tab 40 MG PO QPM, TAB Cholecalciferol (Vitamin D3) 2,000 Unit Tab 2000 INTER.UNIT PO DAILY, TAB 3 Refills Diltiazem Hcl Extended Release (Diltiazem Hcl) 240 Mg Cap 240 MG PO QAM Docusate Sodium (Colace) 100 Mg Cap 100 MG PO BID, CAP Eflornithine Hcl (Vaniqa) 13.9 % Cre 1 APPLN TOP BID PRN for Hirsutism, GM APPLY AND GENTLY MASSAGE INTO AFFECTED AREA. Fluticasone Propionate (Flovent Hfa) 120 Puffs/5280 Mcg Aero 1 PUFFS INH BID for 30 Days, #1 INHALER 2 Refills Hydrocortisone 1% (Hydrocortisone 1%) 90 Appln/30 Gm Cr 1 APPL TOP BID Insulin Aspart (Novolog Flexpen) 100 Units/Ml Inj 1 DOSE SC ACHS USE PER SLIDING SCALE PROTOCOL (FROM [facility]) 70-130: 0 UNITS 131-180: 2 UNITS 181-240: 4 UNITS 241-300: 6 UNITS 301-350: 8 UNITS 351-400: 10 UNITS >400: 12 UNITS & CALL Levothyroxine Sodium (Levothyroxine Sodium) 50 Mcg Tab 50 MCG PO QAM Magnesium Oxide (Mag-Ox) 400 Mg Tab 400 MG PO DAILY AT NOON, TAB Miconazole Nitrate (Desenex Shake Powder) 43 Appln/43 Gm Powd 1 APPLN EXT BID for 14 Days Multiple Vitamins W/ Minerals (Centrum Silver Adult 50+) 1 Tab Tab 1 TAB PO QAM Oxygen (Oxygen) Gas 3 LITERS NA CONTINOUS USES NEEDED Rivaroxaban (Xarelto) 20 Mg Tab 20 MG PO QPM, TAB Sertraline HCl (Sertraline HCl) 50 Mg Tab 50 MG PO DAILY, #30 Discontinued Medications: Furosemide (Lasix) 40 Mg Tab 40 MG PO QAM, TAB Insulin Lispro 75/25 (Humalog Mix 75/25) 100 Units/ Inj 80 UNITS SC BID, VIAL GIVE WITH SUPPER Metformin Hcl (Glucophage) 500 Mg Tab 500 MG PO BIDM, TAB Metoprolol Succinate (Metoprolol Succinate ER) 100 Mg Tabcr 100 MG PO QAM Discharge Exam A 10 system review was performed and all were negative. GEN: Awake, alert, and oriented x 3. Not in acute distress HEENT: Tm's intact, no inflammation, EOMI, PERRLA, MMM Neck: Soft, supple Lungs: Decreased breath sounds at the bases b/l. Otherwise CTA b/l. Heart: REG, nrl S1S2 without murmurs, rubs or gallops Abdomen: Soft, NT, ND, + BS EXT: No C/C +1 pitting edema which I suspect is a chronic finding. NEURO: CN's II-XII grossly intact, non-focal Skin: warm, dry, no rashes PSYCH: pleasant, cooperative. Hospital Course The patient was admitted with acute on chronic cor pulmonale and diastolic dysfunction. The patient was diuresed with good result. She underwent a thoracentesis on 11/16/16 and had prompt improvement in breathing and as she commented, "taking a deep breath". She was maintained on supplemental oxygen which was decreased to her baseline within days of her discharge. During time of sleep she benefitted from using BIPAP and will be discharged with such. Physical and occupational therpay worked with the patient and she was able to ambulate in the hallways at time of discharge. Her chronic atrial fib was managed with cardizem, betablocker, and for full anticoagulation, Xarelto. The patient made great improvements during her hospital stay but will require further physical rehabilitation before going home. She is being transitioned to [facility] for further rehab. Total Time Spent: Greater than 30 minutes This includes examination of the patient, discharge planning, medication reconciliation, and communication with other providers. Discharge Instructions Please refer to the electronic Patient Visit Report (Discharge Instructions) for additional information. Follow-Up See patient discharge instructions for details of follow up.
[2017-02-09] MEDS ORDERED: METO1TAB69 PO (23:41)
[2017-02-16] MEDS ORDERED: MCRK20 PO (08:08)
[2017-02-16] MEDS ORDERED: CPR500 PO (08:08)
[2017-02-16] MEDS ORDERED: ALPR1TAB3 PO (08:08)
[2017-02-16] MEDS ORDERED: MCRB100 PO (08:08)
[2017-02-16] MEDS ORDERED: BMX1 PO ×2 (08:08→15:01)
[2017-02-16] MEDS ORDERED: XRL20 PO (08:10)
== END 2016-11-20 17:26 | DRG 291 ==
LOC: ENRESERVTM → ENRESERVDT → EDBD 09:11 → C.EDB 09:12 → C.2E 13:41 → C.MED 11-17 20:36 → C.4E 11-17 20:36
PROVIDERS: ADMIT Hospitalist; ATTEND Hospitalist
PROC: 0W993ZZ Drainage of Right Pleural Cavity, Percutaneous Approach (ICD-10-PCS; principal; 2016-11-16)
DX: I13.0 Hypertensive heart and chronic kidney disease with heart failure and stage 1 through stage 4 chronic kidney disease, or unspecified chronic kidney disease (principal); I50.33 Acute on chronic diastolic (congestive) heart failure; J96.21 Acute and chronic respiratory failure with hypoxia; J96.22 Acute and chronic respiratory failure with hypercapnia; I48.92 Unspecified atrial flutter; E66.2 Morbid (severe) obesity with alveolar hypoventilation; Z68.44 Body mass index [BMI] 60.0-69.9, adult; E87.2 Acidosis; E03.9 Hypothyroidism, unspecified; F32.9 Major depressive disorder, single episode, unspecified; F41.9 Anxiety disorder, unspecified; M54.30 Sciatica, unspecified side; E78.5 Hyperlipidemia, unspecified; Z82.0 Family history of epilepsy and other diseases of the nervous system; Z82.49 Family history of ischemic heart disease and other diseases of the circulatory system; Z82.3 Family history of stroke; Z88.8 Allergy status to other drugs, medicaments and biological substances; Z91.048 Other nonmedicinal substance allergy status; Z88.0 Allergy status to penicillin; Z79.4 Long term (current) use of insulin; Z79.899 Other long term (current) drug therapy; Z99.81 Dependence on supplemental oxygen; Z79.01 Long term (current) use of anticoagulants; Z66 Do not resuscitate; N18.2 Chronic kidney disease, stage 2 (mild); I27.81 Cor pulmonale (chronic); I48.91 Unspecified atrial fibrillation; R19.7 Diarrhea, unspecified; J98.4 Other disorders of lung; E11.22 Type 2 diabetes mellitus with diabetic chronic kidney disease; Z87.01 Personal history of pneumonia (recurrent); Z87.440 Personal history of urinary (tract) infections; Z85.42 Personal history of malignant neoplasm of other parts of uterus

== ENCOUNTER → 2016-12-13 | Outpatient (CLI) | payer OTHER ==
[~2016-12-13] MED LIST changes: +ALBU4TAB10 PO; -ALPR-411 PO; +ALPR1TAB3 PO; +ARFO15NE INH; +ATR25; +BMX1 PO; +BUME1TAB PO; +CLIN300C2 PO; +CPR500 PO; +DOCU-94 PO; +EFLO13.925 TOP; -EFLO13.94 TOP; -FLVHFA110 INH; +FLVHFA44 INH; -FURO40TA3 PO; -GFNSR600 PO; +HYDCR1CL TOP; -HYDR-3124 PO; +INSDGIPEN SC; -INSU75IN2 SC; +INSU75IN2 SQ; +LISI-461 PO; -LVQ750 PO; +MCRB100 PO; +MCRK20 PO; -METF-384 PO; +METO100T44 PO; +MULTCHW; +NVLGI/PEN SC; -RRALBUT083 PO; -SALI0.6510 NAE; -TPRSR/100 PO; +TPRSR50 PO; +TRIA0.022 EXT; -TRMCR515 TOP; -VNTHFA/IN INH; +XRL20 PO
--- NOTE | 2016-12-13 11:30 | DIAGNOSTIC IMAGING REPORT ---
ULTRASOUND OF THE THYROID GLAND CLINICAL HISTORY: Thyroid nodule. COMPARISON STUDY: Chest CT dated 11/12/2016. TECHNIQUE: Real-time, grayscale, and color flow sonography of the thyroid gland is performed utilizing a high-frequency linear transducer. Images are reviewed in the transverse and longitudinal planes. FINDINGS: Right lobe: The right lobe of the thyroid gland is normal in size and heterogeneous in echotexture, measuring 4.9 x 1.9 x 2.5 cm. There are numerous small colloid cysts. A predominant cystic nodule in the mid to lower pole measures 2.4 x 1.7 x 1.9 cm. This appears to contain internal calcifications. Left lobe: The left lobe of the thyroid gland is normal in size and homogeneous in echotexture, measuring 4.6 x 2.0 x 2.2 cm. Subcentimeter colloid cysts are noted. Isthmus: The thyroid isthmus is thickened and heterogeneous, measuring 0.9 cm in AP diameter. IMPRESSION: 1. The thyroid gland is normal in size and heterogeneous in echotexture. 2. There is a 2.4 cm predominantly cystic complex nodule in the right mid to lower pole. Fine-needle aspiration is recommended based on size criteria. 3. Additional subcentimeter colloid cysts are seen bilaterally. Electronically signed by: Ryan Montero M.D. 12/13/2016 11:29 AM Dictated Date/Time: 12/13/2016 11:26 AM
== END | disposition home or self-care (01) ==
LOC: C.ULTR 10:58
PROVIDERS: ATTEND Family Medicine
DX: E04.2 Nontoxic multinodular goiter (principal)

== ENCOUNTER → 2016-12-21 | Outpatient (CLI) | payer OTHER ==
--- NOTE | 2016-12-21 13:08 | Discharge Instructions ---
Discharge Instructions Procedure Procedure Date: Dec 21, 2016. Reason for visit: Thyroid Nodule. Discharge Discharge Date: Dec 21, 2016. Discharge Diagnosis: s/p thyroid nodule FNA Instructions Activity Recommendations: No limitations Return to School/Work: no limitations Recommended Home Diet: No Limitations Provider Instructions: ACTIVITY RECOMMENDATIONS: * Rest today. * Resume regular activity in one day. MEDICATIONS: * May take Tylenol or Ibuprofen as needed for pain. DIET: * Resume previous diet. SPECIAL CARE INSTRUCTIONS: Call your doctor if: * Temperature above 101 degrees F. * Pain not relieved by pain medicine ordered. * Increased drainage or redness from incision. * Notify your doctor with any questions or concerns. Call your doctor or go to the nearest Emergency Department if you experience: * Increased chest pain or shortness of breath. FOLLOW UP VISIT: Follow-up with Referring Physician as scheduled. Allergies Coded Allergies: Mineral Oil (Verified Allergy, Intermediate, LEGS SWELL, 11/08/16) Penicillins (Verified Allergy, Intermediate, HIVES, 11/08/16) Petrolatum (Verified Allergy, Intermediate, LEGS SWELL, 11/08/16) Metronidazole (Unverified Allergy, Unknown, NAUSEA, 11/08/16) Uncoded Nonscreenable Allergen (Unverified Allergy, Unknown, FLAVONOIDS, ) [place] Recommendations: Call your doctor if: * Temperature above 101 degrees * Pain not relieved by pain medicine ordered * There is increased drainage or redness from any incision * You have any unanswered questions or concerns. Your Doctors Instructions noted above were prepared by provider Ashvin Gee. Patient Signature Section: Patient Instructions Signature Page Janelle Arellano Patient (or Guardian) Signature/Date: I have read and understand the instructions given to me by my caregivers. Caregiver/RN/Doctor Signature/Date: The above-named patient and/or guardian has received patient instructions on this date. + Original Patient Signature Page (only) stays with chart. Please make copy for patient.
--- NOTE | 2016-12-21 13:41 | DIAGNOSTIC IMAGING REPORT ---
ULTRASOUND GUIDED FINE NEEDLE ASPIRATION OF RIGHT LOBE THYROID NODULE CLINICAL HISTORY: THYROID NODULE COMPARISON STUDY: Thyroid ultrasound December 13, 2016. PROCEDURE: The procedure, risks and benefits were discussed with the patient. The patient agreed to the procedure and informed written consent was obtained. The procedure was performed by Dr. Gee following a timeout. Skin of the right neck was prepped and draped in sterile fashion and local anesthesia was achieved with 1% lidocaine. Under direct ultrasound guidance, 2 25-gauge fine needle aspirations were performed of the 2.4 cm predominantly cystic right lobe thyroid nodule. Samples were deemed preliminarily adequate by pathology. The patient tolerated the procedure well and no immediate complications were evident. IMPRESSION: Ultrasound-guided fine needle aspiration of 2.4 cm right lobe thyroid nodule. Electronically signed by: Ashvin Gee M.D. 12/21/2016 1:39 PM Dictated Date/Time: 12/21/2016 1:38 PM
== END | disposition home or self-care (01) ==
LOC: C.ULTR 12:01
PROVIDERS: ATTEND Family Medicine
DX: E04.1 Nontoxic single thyroid nodule (principal)

== ENCOUNTER → 2016-12-26 | Outpatient (CLI) | payer OTHER ==
[2016-12-26 12:58] LABS: CHOLESTEROL/HDL RATIO 2.7
[2016-12-26 13:49] LABS: CALCIUM 9.4 mg/dl (8.5-10.1)
[2016-12-26 14:46] LABS: BLOOD UREA NITROGEN 18 mg/dl (7-18); BUN/CREATININE RATIO 16.3 (10-20); CARBON DIOXIDE 38 mmol/L (21-32); CHLORIDE 96 mmol/L (98-107); GLUCOSE 132 mg/dl (70-99); POTASSIUM 3.7 mmol/L (3.5-5.1); SODIUM 139 mmol/L (136-145)
== END | disposition home or self-care (01) ==
LOC: C.LABPVFM 08:03
PROVIDERS: ATTEND Physician Assistant
DX: E78.5 Hyperlipidemia, unspecified (principal); I50.32 Chronic diastolic (congestive) heart failure

== ENCOUNTER 2017-01-03 08:57 | Inpatient (IN) | payer OTHER ==
[2017-01-03] VITALS (7 sets, daily range): BP systolic 120–166; BP diastolic 73–89; PULSE 93–115; TEMP 36.3–36.8; O2SAT 92–100; BMI 58.1
[~2017-01-03] VITALS: Ht 157.5 cm; Wt 140.7 kg
[~2017-01-03 08:57] MED LIST changes: -ALBU4TAB10 PO; -ARFO15NE INH; -ATR25; -BUME1TAB PO; -CLIN300C2 PO; -CPR500 PO; -FURO-85 PO; -INSU75IN2 SQ; -LISI-461 PO; -MCRB100 PO; -METO100T44 PO; -MULTCHW; -TRIA0.022 EXT; -XRL20 PO
--- NOTE | 2017-01-03 09:16 | EMERGENCY ROOM VISIT NOTE ---
History Report prepared by Inocencioibdanelle: Becky Palma Under the Supervision of: Dr. Moiz Dawson M.D. First contact with patient: 09:12 Chief Complaint: SHORTNESS OF BREATH Stated Complaint: SHORTNESS OF BREATH Nursing Triage Summary: pt here with increased sob today. pt has hx of copd and wears 3 liters at home at all times. ems states pt was in 60's on 3 liters upon arrival states pt was having some periods of confusion History of Present Illness The patient is a 71 year old female who presents to the Emergency Room with complaints of worsening shortness of breath that began this morning. Her shortness of breath is worse with exertion. The patient states that she was unable to get out of bed this morning or use her walker secondary to her symptoms. The patient has a history of COPD and wears 3L oxygen at home at all times. Per nursing notes, the patient's oxygen saturation was in the 60s on 3 liters of oxygen when EMS arrived to the patient's residence. The patient is on Xarelto. Past Medical history includes CHF. Source of History: patient Onset: this morning Position: other (global) Quality: other (shortness of breath) Timing: worsening Modifying Factors (Worsening): exertion Review of Systems See HPI for pertinent positives & negatives. A total of 10 systems reviewed and were otherwise negative. Past Medical & Surgical Medical Problems: (1) Acquired lymphedema (2) Acute on chronic CHF exacerbation, core pulmonale (3) Atrial flutter (4) CHF exacerbation (5) Diab W Oth Coma, Type I [Juvenile Type], Uncontrolled (6) Diabetes mellitus type 2, uncontrolled (7) Endometrial cancer (8) Epistaxis (9) Hypertension Nos (10) Hypertension Nos (11) Hypothyroidism (12) Morbid obesity (13) Obesity (14) Sciatica (15) Weakness Family History FH: Alzheimers disease Hypertension Stroke Social History Smoking Status: Never Smoker Alcohol Use: none Drug Use: none Marital Status: Housing Status: lives with family Occupation Status: retired Current/Historical Medications Scheduled Allopurinol (Zyloprim), 100 MG PO DAILY AT 1200 Atorvastatin (Lipitor), 40 MG PO QPM Bumetanide (Bumetanide), 2 MG PO BID17 Cholecalciferol (Vitamin D3), 2,000 INTER.UNIT PO DAILY Diltiazem Hcl Extended Release (Diltiazem Hcl), 240 MG PO QAM Docusate Sodium (Colace), 100 MG PO BID Fluticasone Propionate (Flovent Hfa), 1 PUFFS INH BID Furosemide (Lasix), 1 TAB PO DAILY Hydrocortisone 1% (Hydrocortisone 1%), 1 APPL TOP BID Insulin Aspart (Novolog Flexpen), 1 DOSE SC ACHS Insulin Glargine (Lantus Solostar), 23 UNIT SC BID Insulin Lispro Protamine & Lis (Humalog Mix 75/25 Kwikpen), 80 UNITS SQ Q12 Levothyroxine Sodium (Levothyroxine Sodium), 50 MCG PO QAM Magnesium Oxide (Mag-Ox), 400 MG PO DAILY AT NOON Metoprolol Succinate (Metoprolol Succinate ER), 150 MG PO QAM Miconazole Nitrate (Desenex Shake Powder), 1 APPLN EXT BID Multiple Vitamins W/ Minerals (Centrum Silver Adult 50+), 1 TAB PO QAM Oxygen (Oxygen), 3 LITERS NA CONTINOUS Potassium Chloride (Klor-Con M20), 20 MEQ PO TID Rivaroxaban (Xarelto), 20 MG PO QPM Sertraline HCl (Sertraline HCl), 50 MG PO DAILY Scheduled PRN Alprazolam (Xanax), 1 MG PO BID PRN for Anxiety Eflornithine Hcl (Vaniqa), 1 APPLN TOP BID PRN for Hirsutism Miscellaneous Medications Albuterol (Ventolin), 4 MG PO Hydroxyzine HCl (Hydroxyzine HCl) Multiple Vitamins W/ Minerals (Centrum Silver) Triamcinolone Acetonide (Topic (Triamcinolone Acet 0.025%) Allergies Coded Allergies: Mineral Oil (Verified Allergy, Intermediate, LEGS SWELL, 01/03/17) Penicillins (Verified Allergy, Intermediate, HIVES, 01/03/17) Petrolatum (Verified Allergy, Intermediate, LEGS SWELL, 01/03/17) Uncoded Nonscreenable Allergen (Verified Allergy, Unknown, FLAVONOIDS, ) Metronidazole (Verified Adverse Reaction, Unknown, NAUSEA, 01/03/17) Physical Exam Vital Signs Date Time Temp Pulse Resp B/P Pulse Ox O2 Delivery O2 Flow Rate FiO2 01/03/17 11:39 88 18 155/77 99 Room Air 01/03/17 11:24 100 Nasal Cannula 3.0 01/03/17 11:17 88 16 156/74 100 Nasal Cannula 3.0 01/03/17 09:50 88 24 140/75 98 Nasal Cannula 3.0 01/03/17 09:39 99 Nasal Cannula 3.0 01/03/17 09:18 100 Nasal Cannula 4.0 01/03/17 09:16 Nasal Cannula 6.0 01/03/17 09:14 100 Nasal Cannula 6.0 01/03/17 09:07 36.8 88 26 175/91 100 Nasal Cannula 6.0 Physical Exam GENERAL: Patient is a morbidly obese 71 year old female HEAD: Normocephalic atraumatic EYES: Ocular movements intact pupils equal and react to light OROPHARYNX mucous membranes are moist no exudates present no erythema or edema present NECK: Supple no nuchal rigidity CHEST: Good equal expansion LUNGS: Distant lung sounds to auscultation CARDIAC: Normal S1 and S2 ABDOMEN: Soft nontender no guarding BACK: No CVA tenderness EXTREMITIES: No pain upon palpation normal muscle strength in all groups no clubbing cyanosis or edema NEURO: Patient is following commands is answering questions appropriately. Alert and oriented x3 Cranial Nerves 2-12 grossly intact Medical Decision & Procedures ER Provider Diagnostic Interpretation: Radiology results as stated below per my review and radiologist interpretation: SINGLE VIEW CHEST CLINICAL HISTORY: Dyspnea. FINDINGS: An AP, portable, upright chest radiograph is compared to study dated 11/17/2016 and correlated with chest CT dated 11/12/2016. The examination is degraded by portable technique, large body habitus, and patient rotation. The heart is enlarged and there is atherosclerotic calcification of the thoracic aorta. There is pulmonary vascular congestion with mild interstitial edema. Small layering pleural effusions are identified with bibasilar consolidation, right larger than left. No pneumothorax is seen. The skeletal structures are osteopenic. The bony thorax is grossly intact. IMPRESSION: 1. Cardiomegaly with evidence of congestive failure and mild interstitial edema. 2. Bilateral pleural effusions with associated consolidation are noted. Electronically signed by: Ryan Montero M.D. 01/03/2017 9:50 AM Dictated Date/Time: 01/03/2017 9:48 AM Laboratory Results Test 01/03/17 09:30 01/03/17 09:45 Influenza Type A (RT-PCR) Neg for Influ A (NEG) Influenza Type A Antigen Neg for Influ A (NEG) Influenza Type B Antigen Neg for Influ B (NEG) Influenza Type B (RT-PCR) Neg for Influ B (NEG) Polychromasia 1+ Hypochromasia PRESENT Anisocytosis PRESENT Est Creatinine Clear Calc Drug Dose 70.4 ml/min Total Bilirubin 0.9 mg/dl (0.2-1) Aspartate Amino Transf (AST/SGOT) 29 U/L (15-37) Alanine Aminotransferase (ALT/SGPT) 28 U/L (12-78) Alkaline Phosphatase 167 U/L (45-117) Total Creatine Kinase 60 U/L (26-192) Pro-B-Type Natriuretic Peptide 614 pg/ml (0-900) Total Protein 7.4 gm/dl (6.4-8.2) Albumin 3.2 gm/dl (3.4-5.0) Globulin 4.2 gm/dl (2.5-4.0) Albumin/Globulin Ratio 0.8 (0.9-2) Chemistry Specimen Hemolysis Hepatitis C Antibody Screen NEG (NEG) Labs reviewed by ED physician. Medications Administered Medications (Trade) Dose Ordered Sig/Johnnie Route Start Time Stop Time Status Last Admin Dose Admin Furosemide (Lasix Inj) 40 mg NOW STAT IV 01/03/17 10:38 01/03/17 10:39 DC 01/03/17 11:39 40 MG Levofloxacin (Levaquin / D5W) 750 mg NOW STAT IV 01/03/17 11:09 01/03/17 11:11 DC 01/03/17 11:38 750 MG ECG Indication: SOB/dyspnea Rate (beats per minute): 88 Rhythm: sinus rhythm Findings: 1st degree AV block, no acute ischemic change, no ectopy ED Course 0913: Past medical records reviewed. The patient was evaluated in room A2. A complete history and physical examination was performed. 1038: Ordered Lasix Inj 40 mg IV. 1041: Upon reexamination the patient is feeling better. I discussed results and treatment plan with the patient. She verbalizes agreement and understanding. I spoke with Dr. Yanez from the [facility] Hospitalist Service. The patient will be evaluated for further management. Medical Decision Differential diagnosis: Etiologies such as infections, reactive airway disease, pneumonia, pneumothorax , COPD, CHF, cardiac ischemia, pulmonary embolism, musculoskeletal, gastrointestinal, as well as others were entertained. This is a 71-year-old female who presents emergency department complaining of shortness of breath. The patient is a history of congestive heart failure and appears to have congestive heart failure and chest x-ray. For this reason the patient was given Lasix in the emergency department. She is acutely tachypneic and is requiring oxygen here in the emergency department. For this reason I did discuss case with the hospitalist service who agreed to admit the patient. Patient was in agreement with the treatment plan. Consults Time Called: 1035 Consulting Physician: Dr. Beau Baker [facility] Hospitalist Returned Call: [phone] I discussed the case with him. The patient will be evaluated for further management. Impression Primary Impression: CHF exacerbation Scribe Attestation The scribe's documentation has been prepared under my direction and personally reviewed by me in its entirety. I confirm that the note above accurately reflects all work, treatment, procedures, and medical decision making performed by me. Departure Information Dispostion Being Evaluated By Hospitalist Referrals Raymond Fierro M.D. (PCP) Patient Instructions My [facility] Problem Qualifiers Primary Impression: CHF exacerbation Congestive heart failure type: unspecified congestive heart failure type Qualified Codes: I50.9 - Heart failure, unspecified
--- NOTE | 2017-01-03 09:52 | DIAGNOSTIC IMAGING REPORT ---
SINGLE VIEW CHEST CLINICAL HISTORY: Dyspnea. FINDINGS: An AP, portable, upright chest radiograph is compared to study dated 11/17/2016 and correlated with chest CT dated 11/12/2016. The examination is degraded by portable technique, large body habitus, and patient rotation. The heart is enlarged and there is atherosclerotic calcification of the thoracic aorta. There is pulmonary vascular congestion with mild interstitial edema. Small layering pleural effusions are identified with bibasilar consolidation, right larger than left. No pneumothorax is seen. The skeletal structures are osteopenic. The bony thorax is grossly intact. IMPRESSION: 1. Cardiomegaly with evidence of congestive failure and mild interstitial edema. 2. Bilateral pleural effusions with associated consolidation are noted. Electronically signed by: Ryan Montero M.D. 01/03/2017 9:50 AM Dictated Date/Time: 01/03/2017 9:48 AM
[2017-01-03] MEDS ORDERED: FURO-85 PO (09:53)
[2017-01-03] MEDS ORDERED: ALBU4TAB10 PO (09:53)
[2017-01-03] MEDS ORDERED: MULTCHW (09:53)
[2017-01-03] MEDS ORDERED: ATR25 (09:53)
[2017-01-03] MEDS ORDERED: TRIA0.022 EXT (09:53)
[2017-01-03] MEDS ORDERED: INSU75IN2 SQ (09:53)
[2017-01-03 10:33] LABS: ALB/GLOB RATIO 0.8 (0.9-2); ALKALINE PHOSPHATASE 167 U/L (45-117); ALT/SGPT 28 U/L (12-78); AST/SGOT 29 U/L (15-37); BLOOD UREA NITROGEN 19 mg/dl (7-18); BUN/CREATININE RATIO 18.7 (10-20); CALCIUM 9.3 mg/dl (8.5-10.1); CHLORIDE 91 mmol/L (98-107); CKMB/CK RATIO 1.8 (0-3.0); GLUCOSE 226 mg/dl (70-99); POTASSIUM 4.7 mmol/L (3.5-5.1); SODIUM 138 mmol/L (136-145)
[2017-01-03] MEDS ORDERED: FUROSEMIDE 40 MG/4 ML VIAL IV STA (10:38)
[2017-01-03 10:39] LABS: ANISOCYTOSIS PRESENT; BASO % 0.6 %; BASO ABS # 0.05 K/uL (0-0.2); COMPLETE YES; EOS % 1.9 %; HEMATOCRIT 40.7 % (37-47); HYPOCHROMIA PRESENT; IG% 0.2 %; LYMPH % 10.5 %; MEAN CELL VOLUME 94.7 fL (80-100); MEAN CORPUSCULAR HEMOGLOBIN 29.5 pg (25-34); MEAN CORPUSCULAR HGB CONC 31.2 g/dl (32-36); MEAN PLATELET VOLUME 9.3 fL (7.4-10.4); MONO % 6.5 %; NEUT % 80.3 %; PLATELET COUNT 193 K/uL (130-400); POLYCHROMASIA 1+; WHITE BLOOD COUNT 8.55 K/uL (4.8-10.8)
[2017-01-03 10:45] LABS: CARBON DIOXIDE 46 mmol/L (21-32)
[2017-01-03] MEDS ORDERED: CEFTRIAXONE SOD INJ 1 GM ADDVIAL IV STA (11:09)
[2017-01-03] MEDS ORDERED: VANCOMYCIN INJ 1,000 MG in SODIUM CHLORIDE 0.9% 250ML 250 ML IV STA (11:09)
[2017-01-03] MEDS ORDERED: LEVAQUIN 750MG / 150ML D5W IV STA (11:09)
[2017-01-03] MEDS ORDERED: ACETAMINOPHEN 325 MG TAB PO PRN (11:45)
[2017-01-03] MEDS ORDERED: ONDANSETRON INJ 2 MG/ML 2 ML VIAL IV PRN (11:45)
[2017-01-03] MEDS ORDERED: MoRPHine SULFATE 2 MG/ML CARP IV PRN (11:45)
[2017-01-03] MEDS ORDERED: ALPRAZOLAM 0.5 MG TAB PO PRN (11:45)
[2017-01-03] MEDS ORDERED: NITROGLYCERIN 0.4 MG SL PER TAB CHARGE SL PRN (11:45)
[2017-01-03] MEDS ORDERED: GLUCOSE 10 TABS/TUBE PO PRN ×2 (12:00→13:30)
[2017-01-03] MEDS ORDERED: DEXTROSE 50% 50 ML SYR IV PRN ×2 (12:00→13:30)
--- NOTE | 2017-01-03 12:21 | History and Physical ---
History & Physical Date & Time of Service: Jan 03, 2017 at 11:40 Chief Complaint: Shortness Of Breath Primary Care Physician: Raymond Fierro M.D. History of Present Illness This is a 71 yo F with PMHx of HTN, acute on chronic diastolic CHF, EF= 55-60%, chronic afib on xarelto, cor pulmonale, hx of R thoracentesis on 11/16/16, hypothyroidism, chronic bilateral lower extremity lymphadema, depression, anxiety, hx of endometrial cx, presenting to the ER after 1 day of shortness of breath. Most recently the patient was hospitalized from Nov 08-November 20 for an acute CHF exacerbation with core pulmonale. She underwent a R thoracentesis by Dr. Herman on 11/16/16 with 850mL outs, and fluid cytology was benign. She has been in and out of the hospital for numerous admission since the beginning of the year for different reasons. Most recently she was a [facility] and discharged from there about 3.5 weeks ago. The patient is present with her . She report yesterday evening when she attempted to get up and walk to the bathroom, she knew she was significantly short of breath compared to normal. She normally wears 3L supplemental O2 at baseline, and was not wearing this when ambulating to the bathroom, but states this is normally what she does. She tripped over her own foot and walker when attempting to get up and fell, but denies any LOC or trauma sustained to her head. Today she feels sore, but doesn't know if she is bruised. Her breathing continued to be bad when she woke up this morning. The patient reports also feeling flutter when she exerts herself with even walking, lightheadedness, and occasionally some substernal chest discomfort. She denies any chest pain currently. Her diet has been sodium restricted, and reports adequate fluid intake. She denies nausea or vomiting. Her bowels moved this morning. Here in the ED the patient was initially placed on 6L O2, and has been able to be weaned down to her baseline of 3L. Her Co2=46, Alk qmfl=903, albumin 3.2. WBC is 8K, hgb and platelets stable. CXR was obtained showing cardiomegaly with evidence of congestive failure and mild interstitial edema. Also with bilateral pleural effusions with associated consolidation are noted. EKG reviewed and shows NSR with 1st degree AV block. Past Medical/Surgical History Medical Problems: (1) Acquired lymphedema Status: Chronic (2) Atrial flutter Status: Chronic (3) CHF exacerbation Status: Resolved (4) Diab W Oth Coma, Type I [Juvenile Type], Uncontrolled Status: Chronic (5) Diabetes mellitus type 2, uncontrolled Status: Chronic (6) Endometrial cancer Status: Resolved (7) Epistaxis Status: Resolved (8) Hypertension Nos Status: Chronic (9) Hypothyroidism Status: Chronic (10) Morbid obesity Status: Chronic (11) Obesity Status: Chronic (12) Sciatica Status: Chronic Family History FH: Alzheimers disease Hypertension Stroke Social History Smoking Status: Never Smoker Smokeless Tobacco Use: No Alcohol Use: none Drug Use: none Marital Status: Housing status: lives with family, usp Occupational Status: retired Immunizations History of Influenza Vaccine: Unknown Influenza Vaccine Date: Jul 25, 2012 History of Tetanus Vaccine?: Unknown History of Pneumococcal: Unknown History of Hepatitis B Vaccine: Unknown Multi-Drug Resistant Organisms History of MDRO: No Allergies Coded Allergies: Mineral Oil (Verified Allergy, Intermediate, LEGS SWELL, 01/03/17) Penicillins (Verified Allergy, Intermediate, HIVES, 01/03/17) Petrolatum (Verified Allergy, Intermediate, LEGS SWELL, 01/03/17) Metronidazole (Unverified Allergy, Unknown, NAUSEA, 01/03/17) Uncoded Nonscreenable Allergen (Unverified Allergy, Unknown, FLAVONOIDS, ) Home Medications Scheduled Allopurinol (Zyloprim), 100 MG PO DAILY AT 1200 Atorvastatin (Lipitor), 40 MG PO QPM Bumetanide (Bumetanide), 2 MG PO BID17 Cholecalciferol (Vitamin D3), 2,000 INTER.UNIT PO DAILY Diltiazem Hcl Extended Release (Diltiazem Hcl), 240 MG PO QAM Docusate Sodium (Colace), 100 MG PO BID Fluticasone Propionate (Flovent Hfa), 1 PUFFS INH BID Furosemide (Lasix), 1 TAB PO DAILY Hydrocortisone 1% (Hydrocortisone 1%), 1 APPL TOP BID Insulin Aspart (Novolog Flexpen), 1 DOSE SC ACHS Insulin Glargine (Lantus Solostar), 23 UNIT SC BID Insulin Lispro Protamine & Lis (Humalog Mix 75/25 Kwikpen), 80 UNITS SQ Q12 Levothyroxine Sodium (Levothyroxine Sodium), 50 MCG PO QAM Magnesium Oxide (Mag-Ox), 400 MG PO DAILY AT NOON Metoprolol Succinate (Metoprolol Succinate ER), 150 MG PO QAM Miconazole Nitrate (Desenex Shake Powder), 1 APPLN EXT BID Multiple Vitamins W/ Minerals (Centrum Silver Adult 50+), 1 TAB PO QAM Oxygen (Oxygen), 3 LITERS NA CONTINOUS Potassium Chloride (Klor-Con M20), 20 MEQ PO TID Rivaroxaban (Xarelto), 20 MG PO QPM Sertraline HCl (Sertraline HCl), 50 MG PO DAILY Scheduled PRN Alprazolam (Xanax), 1 MG PO BID PRN for Anxiety Eflornithine Hcl (Vaniqa), 1 APPLN TOP BID PRN for Hirsutism Miscellaneous Medications Albuterol (Ventolin), 4 MG PO Hydroxyzine HCl (Hydroxyzine HCl) Multiple Vitamins W/ Minerals (Centrum Silver) Triamcinolone Acetonide (Topic (Triamcinolone Acet 0.025%) Review of Systems Constitutional: No chills, No fatigue, No fever, No sweats, No weakness, No weight loss Eyes: No diplopia, No redness ENT: No sore throat, No tinnitus, No trouble swallowing Respiratory: + cough, + dyspnea at rest, + dyspnea on exertion, + shortness of breath, + sputum Cardiovascular: No chest pain Abdomen: No constipation, No diarrhea, No nausea, No pain, No vomiting Musculoskeletal: + swelling, No calf pain, No joint pain Genitourinary - Female: No dysuria Neurologic: + balance problems (uses a walker for ambulation), No numbness/ tingling, No vertigo Endocrine: No fatigue Integumentary: No itch, No rash Physical Exam Vital Signs Date Time Temp Pulse Resp B/P Pulse Ox O2 Delivery O2 Flow Rate FiO2 01/03/17 11:39 88 18 155/77 99 Room Air 01/03/17 11:24 100 Nasal Cannula 3.0 01/03/17 11:17 88 16 156/74 100 Nasal Cannula 3.0 01/03/17 09:50 88 24 140/75 98 Nasal Cannula 3.0 01/03/17 09:39 99 Nasal Cannula 3.0 01/03/17 09:18 100 Nasal Cannula 4.0 01/03/17 09:16 Nasal Cannula 6.0 01/03/17 09:14 100 Nasal Cannula 6.0 01/03/17 09:07 36.8 88 26 175/91 100 Nasal Cannula 6.0 General Appearance: WD/WN, + mild distress, + obese (morbid) Head: normocephalic, atraumatic, + pertinent finding (+ basal cell carcinoma lesion on left forehead) Eyes: PERRL, EOMI ENT: hearing grossly normal, pharynx normal, + pertinent finding (mucous membranes dry) Neck: supple, + JVD (slight, difficult to assess due to body habitus) Respiratory/Chest: + pertinent finding (On 3 L NC, + crackles throughout the Right and on the left upper lobe, absent breath sounds in RLL, some breath sounds present in the LLL but diminished, no wheeze. ) Cardiovascular: regular rate, rhythm, no murmur, normal peripheral pulses Abdomen/GI: normal bowel sounds, non tender, soft, + pertinent finding (+panis , skin intact, no signs of breakdown) Back: normal inspection Extremities/Musculoskelatal: no calf tenderness, + pertinent finding (+ chronic venous stasis changes, + erythema is mild on BLE, surrounding darkened region on the ennis, + dry skin on plantar aspect of feet, +onychomycosis) Neurologic/Psych: alert, oriented x 3, + pertinent finding (Strength of BLE is 4/5 bilaterally, strength in BUE is 5/5. ) Skin: normal color (other than described in extremity exam, no signs of ecchymosis s/p fall), warm/dry, + pertinent finding Diagnostics Laboratory Results Results Past 24 Hours Test 01/03/17 09:30 01/03/17 09:45 01/03/17 11:37 Range/Units Influenza Type A Antigen Neg for Influ A NEG Influenza Type B Antigen Neg for Influ B NEG White Blood Count 8.55 4.8-10.8 K/uL Red Blood Count 4.30 4.2-5.4 M/uL Hemoglobin 12.7 12.0-16.0 g/dL Hematocrit 40.7 37-47 % Mean Corpuscular Volume 94.7 80-100 fL Mean Corpuscular Hemoglobin 29.5 25-34 pg Mean Corpuscular Hemoglobin Concent 31.2 32-36 g/dl Platelet Count 193 130-400 K/uL Mean Platelet Volume 9.3 7.4-10.4 fL Neutrophils (%) (Auto) 80.3 % Lymphocytes (%) (Auto) 10.5 % Monocytes (%) (Auto) 6.5 % Eosinophils (%) (Auto) 1.9 % Basophils (%) (Auto) 0.6 % Neutrophils # (Auto) 6.86 1.4-6.5 K/uL Lymphocytes # (Auto) 0.90 1.2-3.4 K/uL Monocytes # (Auto) 0.56 0.11-0.59 K/uL Eosinophils # (Auto) 0.16 0-0.5 K/uL Basophils # (Auto) 0.05 0-0.2 K/uL RDW Standard Deviation 58.8 36.4-46.3 fL RDW Coefficient of Variation 17.2 11.5-14.5 % Immature Granulocyte % (Auto) 0.2 % Immature Granulocyte # (Auto) 0.02 0.00-0.02 K/uL Polychromasia 1+ Hypochromasia PRESENT Anisocytosis PRESENT Sodium Level 138 136-145 mmol/L Potassium Level 4.7 3.5-5.1 mmol/L Chloride Level 91 98-107 mmol/L Carbon Dioxide Level 46 21-32 mmol/L Anion Gap 1.0 3-11 mmol/L Blood Urea Nitrogen 19 7-18 mg/dl Creatinine 1.00 0.60-1.20 mg/dl Est Creatinine Clear Calc Drug Dose 70.4 ml/min Estimated GFR () 65.2 Estimated GFR (Non- 56.2 BUN/Creatinine Ratio 18.7 10-20 Random Glucose 226 70-99 mg/dl Calcium Level 9.3 8.5-10.1 mg/dl Total Bilirubin 0.9 0.2-1 mg/dl Aspartate Amino Transf (AST/SGOT) 29 15-37 U/L Alanine Aminotransferase (ALT/SGPT) 28 12-78 U/L Alkaline Phosphatase 167 45-117 U/L Total Creatine Kinase 60 26-192 U/L Creatine Kinase MB 1.1 0.5-3.6 ng/ml Creatine Kinase MB Ratio 1.8 0-3.0 Troponin I < 0.015 0-0.045 ng/ml Pro-B-Type Natriuretic Peptide 614 0-900 pg/ml Total Protein 7.4 6.4-8.2 gm/dl Albumin 3.2 3.4-5.0 gm/dl Globulin 4.2 2.5-4.0 gm/dl Albumin/Globulin Ratio 0.8 0.9-2 Chemistry Specimen Hemolysis Microbiology Results 01/03/17 Blood Culture, Marcelo Batch Pending 01/03/17 Blood Culture, Marcelo Batch Pending Diagnostic Radiology SINGLE VIEW CHEST CLINICAL HISTORY: Dyspnea. FINDINGS: An AP, portable, upright chest radiograph is compared to study dated 11/17/2016 and correlated with chest CT dated 11/12/2016. The examination is degraded by portable technique, large body habitus, and patient rotation. The heart is enlarged and there is atherosclerotic calcification of the thoracic aorta. There is pulmonary vascular congestion with mild interstitial edema. Small layering pleural effusions are identified with bibasilar consolidation, right larger than left. No pneumothorax is seen. The skeletal structures are osteopenic. The bony thorax is grossly intact. IMPRESSION: 1. Cardiomegaly with evidence of congestive failure and mild interstitial edema. 2. Bilateral pleural effusions with associated consolidation are noted. Electronically signed by: Ryan Montero M.D. 01/03/2017 9:50 AM Dictated Date/Time: 01/03/2017 9:48 AM The status of this report is Signed. EKG Vent. rate 88 BPM WA interval 232 ms QRS duration 90 ms QT/QTc 396/479 ms P-R-T axes 8 -30 103 Poor data quality, interpretation may be adversely affected Sinus rhythm with 1st degree A-V block with Premature atrial complexes in a pattern of bigeminy Left axis deviation Nonspecific ST and T wave abnormality Abnormal ECG When compared with ECG of 10-NOV-2016 06:19, Sinus rhythm has replaced Atrial flutter Nonspecific T wave abnormality no longer evident in Lateral leads Impression Assessment and Plan 71 yo F with PMHx of HTN, acute on chronic diastolic CHF, EF= 55-60%, chronic afib on xarelto, cor pulmonale, hx of R thoracentesis on 11/16/16, hypothyroidism , chronic bilateral lower extremity lymphadema, depression, anxiety, hx of endometrial cx, presenting to the ER after 1 day of shortness of breath. Shortness of breath Acute on Chronic CHF exacerbation Cor Pulmonale Hypertension - Admit to tele - Last Echo cardiogram done 11/12/16 * -- Conclusions -- * 1. Normal left ventricular size with grossly normal systolic function. Estimated EF 55-60%. Cannot exclude wall motion abnormalities given poor image quality. No definite regional wall motion abnormalities noted. Moderate concentric left ventricular hypertrophy. * 2. Right ventricle not well visualized however, right ventricular systolic function appears to be mildly reduced. * 3. Moderate to severe mitral annular calcification. * 4. Poor image quality. * 5. Technically difficult study, enhanced somewhat with IV Definity. * 6. Mildly elevated right ventricular systolic pressure; estimated RVSP 39 mmHg. * 7. No significant change from prior study on 11/17/2013. - Will trend cardiac enzymes x 2 more sets, first troponin was negative - Will administer Lasix 60 mg IV now, insert montesinos, recheck CXR tomorrow morning , pt is not taking lasix as an outpatient, continue on home bumex 2 mg BID - Will order ultrasound of the Right lung for tomorrow to determine if repeat thoracentesis needs to be done. Pt underwent procedure on 11/16/16 and had 850 mL out. - ER had given Levaquin for possible infiltrate, no need to continue - PT/OT evals Hypercarbia - Likely due to obesity hypoventilation syndrome, seems that CO2 chronically runs high, and 46 is not far off from her baseline. - Consider a blood gas if pt become more lethargic. She may also benefit from bipap while sleeping. Will first diuresis and then consider additional respiratory support. Atrial Fibrillation, chronic - Continue on home xarelto 20 mg daily, metoprolol succ 150 mg qAM, and cardiazem 240 mg qAM - Pt with complaints of shakiness, lightheadedness - most recently saw Karly Carreon PA-C with cardiology about 1 month ago. Can consider cardiology consult if worsening rate control or if diuresis does not improve symptoms. DM II - Last Hgb A1C 6.8 on 09/29/16, will recheck - Cont home lantus 23 U BID - ISS with accuchecks ACHS - Diabetic and heart healthy diet Hyperlipidemia - Cont statin therapy Hypothyroidism - Cont levothyroxine 50 mcg daily Depression/Anxiety - Cont zoloft 50 mg daily, xanax 1 mg BID for anxiety DVT ppx: teds, scds, continue xarelto CODE STATUS: FULL CODE Disposition: From home, PT/OT evals, will ask CM to assist with discharge planning. Advanced Directives Existing Living Will: Yes Existing Power of Food Taster: Yes (ERWIN) VTE Prophylaxis VTE Risk Assessment Done? Y/N: Yes Risk Level: Low
[2017-01-03] MEDS ORDERED: ALBUT/IPRATROP 3MG/0.5MG NEB 3 ML VIAL INH PRN (12:45)
[2017-01-03 12:49] LABS: URINE APPEARANCE CLEAR (CLEAR); URINE BILIRUBIN NEG (NEG); URINE COLOR YELLOW; URINE EPITHELIAL CELL AUTO 20-30 /lpf (0-5); URINE NITRITE NEG (NEG); URINE SPECIFIC GRAVITY 1.018 (1.000-1.030); UROBILINOGEN NEG (NEG)
[2017-01-03 12:51] LABS: MANUAL MICROSCOPIC REQUIRED? NO; REVIEW REQ? NO
[2017-01-03 13:22] LABS: INFLUENZA A PCR Neg for Influ A (NEG); INFLUENZA B PCR Neg for Influ B (NEG)
[2017-01-03] MEDS ORDERED: GLUCOSE 40% GEL 15 GM TUBE PO PRN (13:30)
[2017-01-03] MEDS ORDERED: GLUCAGON FOR INJ 1 MG VIAL SQ PRN (13:30)
[2017-01-03] MEDS ORDERED: FUROSEMIDE INJ 60 MG in SYRINGE 0 ML IV ONE (13:45)
[2017-01-03] MEDS ORDERED: NURSING VERBAL MED ORDER ONE (14:15)
[2017-01-03] MEDS ORDERED: INSULIN ASPART 100 UNITS/ML 3 ML PEN SC ONE (14:45)
[2017-01-03] MEDS: ALBUT/IPRATROP 3MG/0.5MG NEB 3 ML VIAL INH SCH ×3 (16:20→19:36)
[2017-01-03] MEDS: INSULIN ASPART 100 UNITS/ML 3 ML PEN SC SCH ×2 (17:28→20:53)
[2017-01-03] MEDS: BUMETANIDE 1 MG TAB PO SCH (17:28)
[2017-01-03] MEDS: MICONAZOLE NITRATE POWDER 43 GM EXT SCH (20:41)
[2017-01-03] MEDS: FLUTICASONE PROP HFA INH 44 MCG INHALER INH SCH (20:42)
[2017-01-03] MEDS: HYDROCORTISONE 1% CR 30 GM TUBE EXT SCH (20:43)
[2017-01-03] MEDS: DOCUSATE SODIUM 100 MG CAP PO SCH (20:44)
[2017-01-03] MEDS: RIVAROXABAN 20 MG TAB PO SCH (20:44)
[2017-01-03] MEDS: ATORVASTATIN 40 MG TAB PO SCH (20:44)
[2017-01-03] MEDS: INSULIN GLARGINE SOLOSTAR 100 UNITS/ML 3 ML PEN SC SCH (20:53)
[2017-01-04] VITALS (16 sets, daily range): BP systolic 98–171; BP diastolic 63–84; PULSE 74–116; TEMP 36.3–36.9; O2SAT 90–100; BMI 56.2
[2017-01-04] MEDS: LEVOTHYROXINE 50 MCG TAB PO SCH (05:14)
[2017-01-04 06:44] LABS: BASO % 0.6 %; BASO ABS # 0.04 K/uL (0-0.2); COMPLETE YES; EOS % 1.8 %; HEMATOCRIT 39.4 % (37-47); IG% 0.3 %; LYMPH % 17.3 %; LYMPH ABS # 1.18 K/uL (1.2-3.4); MEAN CELL VOLUME 92.9 fL (80-100); MEAN CORPUSCULAR HEMOGLOBIN 29.2 pg (25-34); MEAN CORPUSCULAR HGB CONC 31.5 g/dl (32-36); MEAN PLATELET VOLUME 9.5 fL (7.4-10.4); MONO % 7.3 %; NEUT % 72.7 %; PLATELET COUNT 179 K/uL (130-400); RED BLOOD COUNT 4.24 M/uL (4.2-5.4); WHITE BLOOD COUNT 6.84 K/uL (4.8-10.8)
[2017-01-04] MEDS: ALBUT/IPRATROP 3MG/0.5MG NEB 3 ML VIAL INH SCH ×4 (07:05→20:21)
[2017-01-04 07:48] LABS: BLOOD UREA NITROGEN 21 mg/dl (7-18); BUN/CREATININE RATIO 19.4 (10-20); CALCIUM 8.9 mg/dl (8.5-10.1); CARBON DIOXIDE 42 mmol/L (21-32); CHLORIDE 90 mmol/L (98-107); GLUCOSE 258 mg/dl (70-99); POTASSIUM 3.5 mmol/L (3.5-5.1); SODIUM 137 mmol/L (136-145)
[2017-01-04 08:17] LABS: ESTIMATED AVERAGE GLUCOSE 166 mg/dl; HA1C FLAG Normal (Normal)
--- NOTE | 2017-01-04 08:37 | Clinical Documentation Query ---
CLINICAL DOCUMENTATION QUERY 71 year old female who presents to the Emergency Room with complaints of worsening shortness of breath. In your clinical opinion is this patient being managed for: ( xx ) CKD stage II monitored with daily PRP's, HR, and BP control. ( ) Other explanation of clinical findings (Please Explain) ( ) Unable to determine (Please Define) ( ) Need to Discuss ( ) Not Agree The medical record reflects the following clinical findings, treatment, and risk factors. Clinical Indicators: GFR 50-56.2, HTN 160's/80's, cardiomegaly Treatment: Bumex, Lopressor, daily PRP's Risk Factors: Hypertensive HD, home diuretic therapy Please clarify and document your clinical opinion in the progress notes and discharge summary. Terms such as "probable", "suspected", "likely", "questionable", "possible", or "still to be ruled out" are acceptable. IF IN AGREEMENT, YOU MUST DOCUMENT ABOVE DIAGNOSTIC STATEMENT IN DAILY PROGRESS NOTES AND DISCHARGE SUMMARY. This document is not part of the patient's record. Thank You, Tino Garcia, RN [phone]
[2017-01-04] MEDS: SERTRALINE HCL 50 MG TAB PO SCH (08:59)
[2017-01-04] MEDS: METOPROLOL SUCC 50MG EXT REL TAB PO SCH (08:59)
[2017-01-04] MEDS: DOCUSATE SODIUM 100 MG CAP PO SCH ×2 (08:59→20:45)
[2017-01-04] MEDS: ALLOPURINOL 100 MG TAB PO SCH (08:59)
[2017-01-04] MEDS: MAGNESIUM OXIDE 400 MG TAB PO SCH (09:00)
[2017-01-04] MEDS: BUMETANIDE 1 MG TAB PO SCH (09:00)
[2017-01-04] MEDS: FLUTICASONE PROP HFA INH 44 MCG INHALER INH SCH ×2 (09:00→21:44)
[2017-01-04] MEDS: HYDROCORTISONE 1% CR 30 GM TUBE EXT SCH ×2 (09:00→20:49)
[2017-01-04] MEDS: MICONAZOLE NITRATE POWDER 43 GM EXT SCH ×2 (09:00→20:49)
[2017-01-04] MEDS: DILTIAZEM HCL 240 MG CAPCR PO SCH (09:00)
[2017-01-04] MEDS: INSULIN GLARGINE SOLOSTAR 100 UNITS/ML 3 ML PEN SC SCH ×2 (09:04→20:49)
[2017-01-04] MEDS: INSULIN ASPART 100 UNITS/ML 3 ML PEN SC SCH ×4 (09:04→20:48)
--- NOTE | 2017-01-04 10:16 | DIAGNOSTIC IMAGING REPORT ---
CHEST ULTRASONOGRAPHY CLINICAL HISTORY: Right pleural effusion COMPARISON STUDY: Chest x-ray dated 01/04/2017 FINDINGS: No pleural fluid is visualized on the left. There is a small right pleural effusion with estimated volume of 390 cc. There is underlying lung atelectasis/consolidation. The effusion was not marked due to its small size and underlying adjacent lung. IMPRESSION: Small right pleural effusion with an estimated volume of 390 cc. Electronically signed by: Jacob Horan M.D. 01/04/2017 10:14 AM Dictated Date/Time: 01/04/2017 10:11 AM
--- NOTE | 2017-01-04 10:19 | DIAGNOSTIC IMAGING REPORT ---
CHEST 2 VIEWS ROUTINE HISTORY: shortness of breath, assess volume status COMPARISON: Chest 01/03/2017. FINDINGS: Mild pulmonary vascular congestion which has improved. Small bilateral pleural effusions have improved. Mild cardiomegaly persist. Low lung volumes. No pneumothorax. IMPRESSION: Interval improvement in the mild pulmonary vascular congestion and small bilateral pleural effusions. Electronically signed by: Raz Hayden M.D. 01/04/2017 10:17 AM Dictated Date/Time: 01/04/2017 10:04 AM
--- NOTE | 2017-01-04 15:01 | Progress Note ---
Subjective Date of Service: Jan 04, 2017. Subjective pt is saddened that she feels she is following instructions but still becomes ill enough for admission, no focal complaints feels somewhat better Problem List Medical Problems: (1) Abdominal pain, epigastric Status: Acute (2) Acute bronchitis Status: Acute (3) Bleeding Status: Acute (4) Failure of outpatient treatment Status: Acute (5) Generalized weakness Status: Acute (6) Pneumonia Status: Acute (7) Pneumonia Status: Acute (8) Sinusitis Status: Acute (9) SOB (shortness of breath) Status: Acute Review of Systems Constitutional: No chills, No fever Respiratory: + dyspnea on exertion, + shortness of breath, No cough, No sputum Cardiac: + edema, No chest pain Abdomen: No diarrhea, No nausea, No pain, No vomiting Female : + urinary frequency, No dysuria, No hematuria Psychiatric: No anhedonism, No depression symptoms Objective Vital Signs Date Time Temp Pulse Resp B/P Pulse Ox O2 Delivery O2 Flow Rate FiO2 01/04/17 12:07 36.3 91 18 149/69 98 Nasal Cannula 3.0 01/04/17 12:00 Nasal Cannula 3.0 01/04/17 11:15 81 18 99 Nasal Cannula 3.0 01/04/17 08:58 116 139/82 01/04/17 08:00 Nasal Cannula 3.0 01/04/17 07:05 104 18 98 Nasal Cannula 3.0 01/04/17 04:08 36.8 115 22 171/84 90 Nasal Cannula 3.0 01/04/17 04:00 94 Nasal Cannula 3.0 01/04/17 00:01 94 Nasal Cannula 3.0 01/03/17 23:38 36.6 115 22 163/73 93 Nasal Cannula 3.0 01/03/17 19:37 102 20 94 Nasal Cannula 3.0 01/03/17 19:28 36.8 105 18 166/89 92 Nasal Cannula 3.0 01/03/17 16:25 104 20 93 Nasal Cannula 3.0 01/03/17 15:20 36.3 93 18 147/81 97 Nasal Cannula 3.0 Physical Exam General Appearance: WD/WN, + moderate distress Neck: supple, no JVD Respiratory/Chest: + respiratory distress, + decreased breath sounds, + accessory muscle use Cardiovascular: regular rate, rhythm, + systolic murmur Abdomen: normal bowel sounds, soft Extremities: + pedal edema, + swelling Neurologic/Psychiatric: alert, oriented x 3 Laboratory Results Last 24 Hours Test 01/03/17 16:23 01/03/17 17:24 01/03/17 18:33 01/03/17 20:30 Bedside Glucose 247 mg/dl 205 mg/dl 232 mg/dl Troponin I 0.021 ng/ml Test 01/03/17 22:00 01/03/17 22:09 01/03/17 23:40 01/04/17 02:14 Creatine Kinase MB Ratio Creatine Kinase MB 1.2 ng/ml Bedside Glucose 247 mg/dl Troponin I 0.020 ng/ml Test 01/04/17 06:00 01/04/17 06:07 01/04/17 06:20 Creatine Kinase MB Ratio White Blood Count 6.84 K/uL Red Blood Count 4.24 M/uL Hemoglobin 12.4 g/dL Hematocrit 39.4 % Mean Corpuscular Volume 92.9 fL Mean Corpuscular Hemoglobin 29.2 pg Mean Corpuscular Hemoglobin Concent 31.5 g/dl Platelet Count 179 K/uL Mean Platelet Volume 9.5 fL Neutrophils (%) (Auto) 72.7 % Lymphocytes (%) (Auto) 17.3 % Monocytes (%) (Auto) 7.3 % Eosinophils (%) (Auto) 1.8 % Basophils (%) (Auto) 0.6 % Neutrophils # (Auto) 4.98 K/uL Lymphocytes # (Auto) 1.18 K/uL Monocytes # (Auto) 0.50 K/uL Eosinophils # (Auto) 0.12 K/uL Basophils # (Auto) 0.04 K/uL RDW Standard Deviation 57.7 fL RDW Coefficient of Variation 17.1 % Immature Granulocyte % (Auto) 0.3 % Immature Granulocyte # (Auto) 0.02 K/uL Sodium Level 137 mmol/L Potassium Level 3.5 mmol/L Chloride Level 90 mmol/L Carbon Dioxide Level 42 mmol/L Anion Gap 5.0 mmol/L Blood Urea Nitrogen 21 mg/dl Creatinine 1.10 mg/dl Est Creatinine Clear Calc Drug Dose 62.6 ml/min Estimated GFR () 58.1 Estimated GFR (Non- 50.1 BUN/Creatinine Ratio 19.4 Random Glucose 258 mg/dl Estimated Average Glucose 166 mg/dl Hemoglobin A1c 7.4 % Calcium Level 8.9 mg/dl Creatine Kinase MB 1.2 ng/ml Bedside Glucose 265 mg/dl Assessment and Plan 71 yo F with PMHx of HTN, acute on chronic diastolic CHF, EF= 55-60%, chronic afib on xarelto, cor pulmonale, hx of R thoracentesis on 11/16/16, hypothyroidism , chronic bilateral lower extremity lymphedema, depression, anxiety, hx of endometrial cx, Acute on Chronic CHF exacerbation, Cor Pulmonale bumex 2 mg BID changes to iv - ultrasound of the Right lung shows small effusion, 390 cc. Pt underwent procedure on 11/16/16 and had 850 mL out. Hypercarbia obesity hypoventilation syndrome, seems that CO2 chronically runs high, bipap while sleeping. Atrial Fibrillation, chronic xarelto 20 mg daily, metoprolol succ 150 mg qAM, and Cardizem 240 mg qAM CKD 2 monitored with PRP and blood pressure control DM II A1C 6.8 lantus 23 U BID ssi Hypothyroidism stable levothyroxine 50 mcg daily Depression/Anxiety zoloft 50 mg daily, xanax 1 mg BID for anxiety DVT ppx: teds, scds, continue xarelto CODE STATUS: FULL CODE
[2017-01-04] MEDS ORDERED: BUMETANIDE IV 2 MG in SYRINGE 0 ML IV SCH (17:00)
[2017-01-04] MEDS ORDERED: METHYLPREDNISOLONE IV 40 MG in SYRINGE 0 ML IV ONE (17:45)
[2017-01-04] MEDS: RIVAROXABAN 20 MG TAB PO SCH (20:45)
[2017-01-04] MEDS: ATORVASTATIN 40 MG TAB PO SCH (20:45)
[2017-01-05] VITALS (16 sets, daily range): BP systolic 117–155; BP diastolic 60–73; PULSE 72–87; TEMP 36.5–36.6; O2SAT 91–97
[2017-01-05 05:48] LABS: BASO % 0.1 %; BASO ABS # 0.01 K/uL (0-0.2); COMPLETE YES; EOS % 0.1 %; HEMATOCRIT 39.2 % (37-47); IG% 0.3 %; MEAN CELL VOLUME 92.7 fL (80-100); MEAN CORPUSCULAR HEMOGLOBIN 29.3 pg (25-34); MEAN CORPUSCULAR HGB CONC 31.6 g/dl (32-36); MEAN PLATELET VOLUME 9.4 fL (7.4-10.4); MONO % 0.7 %; NEUT % 91.8 %; PLATELET COUNT 176 K/uL (130-400); RED BLOOD COUNT 4.23 M/uL (4.2-5.4); WHITE BLOOD COUNT 7.16 K/uL (4.8-10.8)
[2017-01-05] MEDS: LEVOTHYROXINE 50 MCG TAB PO SCH (05:57)
[2017-01-05 06:20] LABS: BUN/CREATININE RATIO 20.2 (10-20); CREATININE 1.1 mg/dl (0.60-1.20); POTASSIUM 4.4 mmol/L (3.5-5.1)
[2017-01-05 06:30] LABS: BETA-HYDROXYBUTYRATE 3.42 mg/dL (0.2-2.81)
[2017-01-05] MEDS: INSULIN ASPART 100 UNITS/ML 3 ML PEN SC SCH ×4 (07:00→21:03)
[2017-01-05] MEDS: ALBUT/IPRATROP 3MG/0.5MG NEB 3 ML VIAL INH SCH ×4 (07:56→19:21)
[2017-01-05] MEDS: DILTIAZEM HCL 240 MG CAPCR PO SCH (08:38)
[2017-01-05] MEDS: FLUTICASONE PROP HFA INH 44 MCG INHALER INH SCH ×2 (08:38→21:04)
[2017-01-05] MEDS: DOCUSATE SODIUM 100 MG CAP PO SCH ×2 (08:39→21:06)
[2017-01-05] MEDS: ALLOPURINOL 100 MG TAB PO SCH (08:39)
[2017-01-05] MEDS: MAGNESIUM OXIDE 400 MG TAB PO SCH (08:39)
[2017-01-05] MEDS: METOPROLOL SUCC 50MG EXT REL TAB PO SCH (08:39)
[2017-01-05] MEDS: SERTRALINE HCL 50 MG TAB PO SCH (08:39)
[2017-01-05] MEDS: BUMETANIDE IV 2 MG in SYRINGE 0 ML IV SCH (08:40)
[2017-01-05] MEDS: INSULIN GLARGINE SOLOSTAR 100 UNITS/ML 3 ML PEN SC SCH ×2 (08:44→21:04)
[2017-01-05] MEDS: HYDROCORTISONE 1% CR 30 GM TUBE EXT SCH ×2 (09:00→20:57)
[2017-01-05] MEDS: MICONAZOLE NITRATE POWDER 43 GM EXT SCH ×2 (09:00→20:57)
--- NOTE | 2017-01-05 15:18 | Progress Note ---
Subjective Date of Service: Jan 05, 2017. Subjective pt has slight improvement since treating her shortness of breath as if copd exacerbation, did have some sinus drainage but most likley from dry oxygen as she typically uses humidified oxygen at home, she is at or below her dry weight making HF less likely and her glucoses are up due to steroids requiring adjustment to insulin Problem List Medical Problems: (1) Abdominal pain, epigastric Status: Acute (2) Acute bronchitis Status: Acute (3) Bleeding Status: Acute (4) Failure of outpatient treatment Status: Acute (5) Generalized weakness Status: Acute (6) Pneumonia Status: Acute (7) Pneumonia Status: Acute (8) Sinusitis Status: Acute (9) SOB (shortness of breath) Status: Acute Review of Systems Constitutional: + weakness, No chills, No fever Respiratory: + cough, + dyspnea on exertion, + shortness of breath, + sputum Cardiac: + edema, No chest pain Abdomen: No diarrhea, No nausea, No pain, No vomiting Psychiatric: No anhedonism, No depression symptoms Objective Vital Signs Date Time Temp Pulse Resp B/P Pulse Ox O2 Delivery O2 Flow Rate FiO2 01/05/17 12:00 97 Nasal Cannula 3.0 Humidified Oxygen 01/05/17 11:49 36.5 86 19 143/67 92 Nasal Cannula 3.0 01/05/17 11:40 87 18 95 Nasal Cannula 3.0 01/05/17 08:18 36.6 73 20 137/65 94 01/05/17 07:56 73 18 94 Nasal Cannula 3.0 01/05/17 07:30 97 Nasal Cannula 3.0 01/05/17 04:20 36.5 75 20 146/70 97 Nasal Cannula 3.0 01/05/17 04:00 97 Nasal Cannula 3.0 01/05/17 00:06 94 Nasal Cannula 3.0 01/04/17 23:25 36.9 78 20 142/83 94 Nasal Cannula 3.0 01/04/17 21:30 76 94 Nasal Cannula 3.0 01/04/17 20:23 81 18 96 Nasal Cannula 3.0 01/04/17 20:00 96 Nasal Cannula 3.0 01/04/17 19:52 36.5 74 18 133/63 96 01/04/17 16:04 81 18 99 Nasal Cannula 3.0 01/04/17 16:00 100 Nasal Cannula 2.0 01/04/17 15:43 36.5 79 20 136/66 100 Nasal Cannula 2.0 Physical Exam General Appearance: + moderate distress, + obese Neck: supple, no JVD Respiratory/Chest: + decreased breath sounds, + accessory muscle use, + rhonchi , + wheezing Cardiovascular: regular rate, rhythm, + systolic murmur Abdomen: normal bowel sounds, soft Extremities: + pedal edema, + swelling, + pertinent finding (changes of chronic venous stasis) Neurologic/Psychiatric: alert, oriented x 3 Laboratory Results Last 24 Hours Test 01/04/17 16:08 01/04/17 20:04 01/05/17 05:25 01/05/17 06:53 Bedside Glucose 213 mg/dl 250 mg/dl 314 mg/dl White Blood Count 7.16 K/uL Red Blood Count 4.23 M/uL Hemoglobin 12.4 g/dL Hematocrit 39.2 % Mean Corpuscular Volume 92.7 fL Mean Corpuscular Hemoglobin 29.3 pg Mean Corpuscular Hemoglobin Concent 31.6 g/dl Platelet Count 176 K/uL Mean Platelet Volume 9.4 fL Neutrophils (%) (Auto) 91.8 % Lymphocytes (%) (Auto) 7.0 % Monocytes (%) (Auto) 0.7 % Eosinophils (%) (Auto) 0.1 % Basophils (%) (Auto) 0.1 % Neutrophils # (Auto) 6.57 K/uL Lymphocytes # (Auto) 0.50 K/uL Monocytes # (Auto) 0.05 K/uL Eosinophils # (Auto) 0.01 K/uL Basophils # (Auto) 0.01 K/uL RDW Standard Deviation 55.9 fL RDW Coefficient of Variation 16.7 % Immature Granulocyte % (Auto) 0.3 % Immature Granulocyte # (Auto) 0.02 K/uL Sodium Level 136 mmol/L Potassium Level 4.4 mmol/L Chloride Level 90 mmol/L Carbon Dioxide Level 44 mmol/L Anion Gap 2.0 mmol/L Blood Urea Nitrogen 22 mg/dl Creatinine 1.10 mg/dl Est Creatinine Clear Calc Drug Dose 62.6 ml/min Estimated GFR () 58.1 Estimated GFR (Non- 50.1 BUN/Creatinine Ratio 20.2 Random Glucose 308 mg/dl Calcium Level 9.0 mg/dl Beta-Hydroxybutyric Acid 3.42 mg/dL Test 4/22/17 11:17 Bedside Glucose 417 mg/dl Assessment and Plan 71 yo F with PMHx of HTN, acute on chronic diastolic CHF, EF= 55-60%, chronic afib on xarelto, cor pulmonale, hx of R thoracentesis on 11/16/16, hypothyroidism , chronic bilateral lower extremity lymphedema, depression, anxiety, hx of endometrial cx, Acute on Chronic CHF exacerbation, Cor Pulmonale bumex 2 mg BID changes to iv, given her dry weight, this maynot be biggest player in her subjective sx - ultrasound of the Right lung shows small effusion, 390 cc. Pt underwent procedure on 11/16/16 and had 850 mL out. Hypercarbia obesity hypoventilation syndrome, possibly copd, did work in an environment with much second hand smoke, improved with steroids, nebs, will have pulmonary eval 01/06 if not much better, continue bipap while sleeping. Atrial Fibrillation, chronic xarelto 20 mg daily, metoprolol succ 150 mg qAM, and Cardizem 240 mg qAM, she claims reliantly taking med, so doubt PE as alternative cause of CELAYA CKD 2 monitored with PRP and blood pressure control DM II A1C 6.8 Increase lantus 30 U BID and adjusted ssi 01/05 Hypothyroidism stable levothyroxine 50 mcg daily Depression/Anxiety zoloft 50 mg daily, xanax 1 mg BID for anxiety DVT ppx: teds, scds, continue xarelto CODE STATUS: FULL CODE
[2017-01-05] MEDS: ARFORMOTEROL TART 15MCG/2ML VIAL INH SCH (19:21)
[2017-01-05] MEDS: ATORVASTATIN 40 MG TAB PO SCH (21:07)
[2017-01-05] MEDS: RIVAROXABAN 20 MG TAB PO SCH (21:08)
[2017-01-06] VITALS (9 sets, daily range): BP systolic 148–152; BP diastolic 76–81; PULSE 63–117; TEMP 36.5–36.6; O2SAT 93–99
[2017-01-06] MEDS: LEVOTHYROXINE 50 MCG TAB PO SCH (06:01)
[2017-01-06 07:22] LABS: BASO % 0.1 %; BASO ABS # 0.01 K/uL (0-0.2); COMPLETE YES; EOS % 0.1 %; HEMATOCRIT 38.9 % (37-47); IG% 0.2 %; LYMPH % 7.5 %; LYMPH ABS # 0.74 K/uL (1.2-3.4); MEAN CELL VOLUME 92.2 fL (80-100); MEAN CORPUSCULAR HEMOGLOBIN 28.2 pg (25-34); MEAN CORPUSCULAR HGB CONC 30.6 g/dl (32-36); MEAN PLATELET VOLUME 9.2 fL (7.4-10.4); MONO % 3.4 %; NEUT % 88.7 %; PLATELET COUNT 183 K/uL (130-400); RED BLOOD COUNT 4.22 M/uL (4.2-5.4); WHITE BLOOD COUNT 9.86 K/uL (4.8-10.8)
[2017-01-06] MEDS: ALBUT/IPRATROP 3MG/0.5MG NEB 3 ML VIAL INH SCH ×4 (07:52→19:06)
[2017-01-06] MEDS: ARFORMOTEROL TART 15MCG/2ML VIAL INH SCH ×2 (07:52→19:06)
[2017-01-06] MEDS: MICONAZOLE NITRATE POWDER 43 GM EXT SCH ×2 (08:04→21:22)
[2017-01-06] MEDS: BUMETANIDE IV 2 MG in SYRINGE 0 ML IV SCH (08:05)
[2017-01-06] MEDS: INSULIN ASPART 100 UNITS/ML 3 ML PEN SC SCH ×4 (08:06→21:22)
[2017-01-06] MEDS: ALLOPURINOL 100 MG TAB PO SCH (08:07)
[2017-01-06] MEDS: SERTRALINE HCL 50 MG TAB PO SCH (08:07)
[2017-01-06] MEDS: INSULIN GLARGINE SOLOSTAR 100 UNITS/ML 3 ML PEN SC SCH ×2 (08:07→21:16)
[2017-01-06] MEDS: HYDROCORTISONE 1% CR 30 GM TUBE EXT SCH ×2 (08:07→21:24)
[2017-01-06] MEDS: FLUTICASONE PROP HFA INH 44 MCG INHALER INH SCH ×2 (08:07→21:23)
[2017-01-06] MEDS: METOPROLOL SUCC 50MG EXT REL TAB PO SCH (08:08)
[2017-01-06] MEDS: MAGNESIUM OXIDE 400 MG TAB PO SCH (08:08)
[2017-01-06] MEDS: DOCUSATE SODIUM 100 MG CAP PO SCH ×2 (08:09→21:23)
[2017-01-06] MEDS: DILTIAZEM HCL 240 MG CAPCR PO SCH (08:09)
--- NOTE | 2017-01-06 15:19 | Progress Note ---
Subjective Date of Service: Jan 06, 2017. Subjective pt feels improved but not quite ready to go home wishes to have more PT/Ot to asses need and CELAYA cough is less and overall looks more comfortable Problem List Medical Problems: (1) Abdominal pain, epigastric Status: Acute (2) Acute bronchitis Status: Acute (3) Bleeding Status: Acute (4) Failure of outpatient treatment Status: Acute (5) Generalized weakness Status: Acute (6) Pneumonia Status: Acute (7) Pneumonia Status: Acute (8) Sinusitis Status: Acute (9) SOB (shortness of breath) Status: Acute Review of Systems Constitutional: No chills, No fever Respiratory: + dyspnea on exertion, + shortness of breath, No cough, No sputum , No wheezing Cardiac: + edema, No chest pain Abdomen: No diarrhea, No nausea, No pain, No vomiting Psychiatric: No anhedonism, No depression symptoms Skin: + problem reported (has basal cell carcinoma on forehead has seen surgeon and will have removed as outpt) Objective Vital Signs Date Time Temp Pulse Resp B/P Pulse Ox O2 Delivery O2 Flow Rate FiO2 01/06/17 12:12 36.6 117 18 151/76 94 Nasal Cannula 01/06/17 12:00 Nasal Cannula 3.0 01/06/17 11:35 85 18 94 Nasal Cannula 3.0 01/06/17 08:11 36.5 70 16 152/76 99 Nasal Cannula 01/06/17 08:00 Nasal Cannula 3.0 01/06/17 07:43 83 18 95 Nasal Cannula 3.0 01/06/17 04:15 36.5 73 18 148/81 96 Room Air 01/06/17 04:00 96 Nasal Cannula 3.0 Humidified Oxygen 01/06/17 00:01 97 Nasal Cannula 3.0 Humidified Oxygen 01/05/17 23:25 36.5 73 18 155/73 97 Nasal Cannula 3.0 Humidified Oxygen 01/05/17 20:00 96 Nasal Cannula 3.0 Humidified Oxygen 01/05/17 19:44 36.5 72 20 147/65 96 Nasal Cannula 3.0 01/05/17 19:21 85 18 95 Nasal Cannula 3.0 01/05/17 16:18 36.6 77 20 117/60 91 Nasal Cannula 3.0 01/05/17 16:10 97 Nasal Cannula 3.0 Humidified Oxygen 01/05/17 15:53 85 18 95 Nasal Cannula 3.0 Physical Exam General Appearance: + mild distress, + obese Neck: supple, no JVD Respiratory/Chest: chest non-tender, normal breath sounds, + decreased breath sounds, + accessory muscle use, + rhonchi Cardiovascular: regular rate, rhythm, no murmur Abdomen: normal bowel sounds, non tender, soft Extremities: no pedal edema, no calf tenderness Skin: + pertinent finding (left forehead BCCA) Laboratory Results Last 24 Hours Test 01/05/17 16:04 01/05/17 20:12 01/06/17 06:45 01/06/17 11:36 Bedside Glucose 317 mg/dl 314 mg/dl 302 mg/dl 370 mg/dl White Blood Count 9.86 K/uL Red Blood Count 4.22 M/uL Hemoglobin 11.9 g/dL Hematocrit 38.9 % Mean Corpuscular Volume 92.2 fL Mean Corpuscular Hemoglobin 28.2 pg Mean Corpuscular Hemoglobin Concent 30.6 g/dl Platelet Count 183 K/uL Mean Platelet Volume 9.2 fL Neutrophils (%) (Auto) 88.7 % Lymphocytes (%) (Auto) 7.5 % Monocytes (%) (Auto) 3.4 % Eosinophils (%) (Auto) 0.1 % Basophils (%) (Auto) 0.1 % Neutrophils # (Auto) 8.74 K/uL Lymphocytes # (Auto) 0.74 K/uL Monocytes # (Auto) 0.34 K/uL Eosinophils # (Auto) 0.01 K/uL Basophils # (Auto) 0.01 K/uL RDW Standard Deviation 55.7 fL RDW Coefficient of Variation 16.6 % Immature Granulocyte % (Auto) 0.2 % Immature Granulocyte # (Auto) 0.02 K/uL Assessment and Plan 71 yo F with PMHx of HTN, acute on chronic diastolic CHF, EF= 55-60%, chronic afib on xarelto, cor pulmonale, hx of R thoracentesis on 11/16/16, hypothyroidism , chronic bilateral lower extremity lymphedema, depression, anxiety, hx of endometrial cx, Acute on Chronic CHF exacerbation, Cor Pulmonale bumex 2 mg BID change to po , use current weight as dry weight - ultrasound of the Right lung shows small effusion, 390 cc. Pt underwent procedure on 11/16/16 and had 850 mL out. Hypercarbia obesity hypoventilation syndrome, possibly copd, did work in an environment with much second hand smoke, improved with steroids, nebs, bipap while sleeping has improved dramatically , will recommend pulmonary eval as outpt, possible pfts. Atrial Fibrillation, chronic xarelto 20 mg daily, metoprolol succ 150 mg qAM, and Cardizem 240 mg qAM, she claims reliantly taking med, so doubt PE as alternative cause of CELAYA CKD 2 monitored with PRP and blood pressure control DM II A1C 6.8 Increase lantus 30 U BID and adjusted ssi 01/05 Hypothyroidism stable levothyroxine 50 mcg daily Depression/Anxiety zoloft 50 mg daily, xanax 1 mg BID for anxiety DVT ppx: teds, scds, continue xarelto CODE STATUS: FULL CODE
[2017-01-06] MEDS ORDERED: NURSING VERBAL MED ORDER ONE (17:00)
[2017-01-06] MEDS ORDERED: INSULIN ASPART 100 UNITS/ML 3 ML PEN SC STA (17:11)
[2017-01-06] MEDS: RIVAROXABAN 20 MG TAB PO SCH (21:23)
[2017-01-06] MEDS: ATORVASTATIN 40 MG TAB PO SCH (21:23)
[2017-01-07] VITALS (8 sets, daily range): BP systolic 155–166; BP diastolic 75–77; PULSE 63–80; TEMP 36.3–36.6; O2SAT 93–97; Ht 157.5 cm; Wt 140.7 kg
[2017-01-07] MEDS: LEVOTHYROXINE 50 MCG TAB PO SCH (06:53)
[2017-01-07] MEDS: ALBUT/IPRATROP 3MG/0.5MG NEB 3 ML VIAL INH SCH ×3 (07:23→14:51)
[2017-01-07] MEDS: ARFORMOTEROL TART 15MCG/2ML VIAL INH SCH (07:24)
[2017-01-07] MEDS: MICONAZOLE NITRATE POWDER 43 GM EXT SCH (09:00)
[2017-01-07] MEDS: HYDROCORTISONE 1% CR 30 GM TUBE EXT SCH (09:00)
[2017-01-07] MEDS ORDERED: BUMETANIDE 1 MG TAB PO SCH (09:00)
[2017-01-07] MEDS: ALLOPURINOL 100 MG TAB PO SCH (09:20)
[2017-01-07] MEDS: SERTRALINE HCL 50 MG TAB PO SCH (09:20)
[2017-01-07] MEDS: METOPROLOL SUCC 50MG EXT REL TAB PO SCH (09:21)
[2017-01-07] MEDS: DOCUSATE SODIUM 100 MG CAP PO SCH (09:21)
[2017-01-07] MEDS: MAGNESIUM OXIDE 400 MG TAB PO SCH (09:21)
[2017-01-07] MEDS: DILTIAZEM HCL 240 MG CAPCR PO SCH (09:22)
[2017-01-07] MEDS: INSULIN ASPART 100 UNITS/ML 3 ML PEN SC SCH ×3 (09:24→17:35)
[2017-01-07] MEDS: INSULIN GLARGINE SOLOSTAR 100 UNITS/ML 3 ML PEN SC SCH (09:25)
[2017-01-07] MEDS: FLUTICASONE PROP HFA INH 44 MCG INHALER INH SCH (09:26)
[2017-01-07] MEDS ORDERED: ARFO15NE INH (17:35)
--- NOTE | 2017-01-07 17:37 | Discharge Instructions ---
Discharge Instructions Date of Service Jan 07, 2017. Admission Reason for Admission: Acute On Chronic Chf Exacerbation, Core Pulmonale Discharge Discharge Diagnosis / Problem: Cor pulmonale Discharge Goals Goal(s): Improve function Activity Recommendations Activity Limitations: resume your previous activity Lifting Limitations: none Exercise/Sports Limitations: as tolerated May Resume Sexual Activity: when tolerated Shower/Bathe: no limitations Driving or Machine Use: no limitations . Instructions / Follow-Up Instructions / Follow-Up Pulmonary medicine in one to two weeks Current Hospital Diet Patient's current hospital diet: AHA Diet (Heart Healthy), Diabetes Type 2 Diet Discharge Diet Recommended Diet: AHA Diet (Heart Healthy), Diabetes Type 2 Diet Pending Studies Studies pending at discharge: no Laboratory Results Hemoglobin A1c Test 01/04/17 06:07 Range/Units Estimated Average Glucose 166 mg/dl Hemoglobin A1c 7.4 H 4.5-5.6 % Lipid Panel Test 12/26/16 08:10 Range/Units Triglycerides Level 87 0-150 mg/dl Cholesterol Level 104 0-200 mg/dl HDL Cholesterol 38 mg/dl Cholesterol/HDL Ratio 2.7 LDL Cholesterol, Calculated 49 mg/dl Medical Emergencies . Who to Call and When: Medical Emergencies: If at any time you feel your situation is an emergency, please call 911 immediately. . Non-Emergent Contact Non-Emergency issues call your: Primary Care Provider . Past History Medical & Surgical History: (1) Atrial flutter (2) Morbid obesity (3) Hypothyroidism (4) Diabetes mellitus type 2, uncontrolled (5) COPD exacerbation (6) Congestive heart failure (CHF) (7) Acute on chronic CHF exacerbation, core pulmonale (8) Acquired lymphedema . "Provider Documentation" section prepared by Wander Perez. . VTE Core Measure Inpt VTE Proph given/why not?: Other Anticoagulation
[2017-01-07] MEDS: RIVAROXABAN 20 MG TAB PO SCH (18:36)
[2017-01-07] MEDS: ATORVASTATIN 40 MG TAB PO SCH (18:36)
--- NOTE | 2017-01-07 20:25 | Discharge Summary ---
Discharge Summary Date of Service Jan 07, 2017. Discharge Summary Admission Date: Jan 03, 2017 at 11:40 Discharge Date: Jan 07, 2017 Discharge Disposition: Home Principal Diagnosis: COPD exacerbation Problems/Secondary Diagnoses: Obesity Diabetes mellitus type 2 , insulin dependent Immunizations: Have You Had Influenza Vaccine: Unknown Influenza Vaccine Date: Jul 25, 2012 History of Tetanus Vaccine?: Unknown History of Pneumococcal: Unknown History of Hepatitis B Vaccine: Unknown Medication Reconciliation New Medications: Arformoterol Tartrate (Brovana) 15 Mcg/2 Ml Neb 15 MCG INH BID for 30 Days, #1 INHALER 6 Refills Continued Medications: Allopurinol (Zyloprim) 100 Mg Tab 100 MG PO DAILY AT 1200, TAB Alprazolam (Xanax) 1 Mg Tab 1 MG PO BID PRN for Anxiety, TAB Atorvastatin (Lipitor) 40 Mg Tab 40 MG PO QPM, TAB Bumetanide (Bumetanide) 1 Mg Tab 2 MG PO BID17 for 15 Days, #60 TAB 0 Refills Cholecalciferol (Vitamin D3) 2,000 Unit Tab 2000 INTER.UNIT PO DAILY, TAB 3 Refills Diltiazem Hcl Extended Release (Diltiazem Hcl) 240 Mg Cap 240 MG PO QAM Docusate Sodium (Colace) 100 Mg Cap 100 MG PO BID, CAP Eflornithine Hcl (Vaniqa) 13.9 % Cre 1 APPLN TOP BID PRN for Hirsutism, GM APPLY AND GENTLY MASSAGE INTO AFFECTED AREA. Fluticasone Propionate (Flovent Hfa) 120 Puffs/5280 Mcg Aero 1 PUFFS INH BID for 30 Days, #1 INHALER 2 Refills Hydrocortisone 1% (Hydrocortisone 1%) 90 Appln/30 Gm Cr 1 APPL TOP BID Insulin Lispro Protamine & Lis (Humalog Mix 75/25 Kwikpen) 1 Inj Inj 80 UNITS SQ Q12 Levothyroxine Sodium (Levothyroxine Sodium) 50 Mcg Tab 50 MCG PO QAM Magnesium Oxide (Mag-Ox) 400 Mg Tab 400 MG PO DAILY AT NOON, TAB Metoprolol Succinate (Metoprolol Succinate ER) 50 Mg Tabcr 150 MG PO QAM for 15 Days, #45 0 Refills Miconazole Nitrate (Desenex Shake Powder) 43 Appln/43 Gm Powd 1 APPLN EXT BID for 14 Days Multiple Vitamins W/ Minerals (Centrum Silver Adult 50+) 1 Tab Tab 1 TAB PO QAM Oxygen (Oxygen) Gas 3 LITERS NA CONTINOUS USES NEEDED Potassium Chloride (Klor-Con M20) 20 Meq Tabcr 20 MEQ PO TID for 15 Days, #45 0 Refills Rivaroxaban (Xarelto) 20 Mg Tab 20 MG PO QPM, TAB Sertraline HCl (Sertraline HCl) 50 Mg Tab 50 MG PO DAILY, #30 Triamcinolone Acetonide (Topic (Triamcinolone Acet 0.025%) 0.025 % Lot Discontinued Medications: Albuterol (Ventolin) 4 Mg Tab 4 MG PO, TAB Furosemide (Lasix) 20 Mg Tab 1 TAB PO DAILY for 90 Days, #90 TAB 1 Refill Hydroxyzine HCl (Hydroxyzine HCl) 25 Mg Tab Insulin Aspart (Novolog Flexpen) 100 Units/Ml Inj 1 DOSE SC ACHS USE PER SLIDING SCALE PROTOCOL (FROM [facility]) 70-130: 0 UNITS 131-180: 2 UNITS 181-240: 4 UNITS 241-300: 6 UNITS 301-350: 8 UNITS 351-400: 10 UNITS >400: 12 UNITS & CALL Insulin Glargine (Lantus Solostar) 100 Unit/Ml Inj 23 UNIT SC BID for 15 Days, #690 UNITS 0 Refills Multiple Vitamins W/ Minerals (Centrum Silver) 1 Chw Chw Discharge Exam Physical Exam: General Appearance: WD/WN Eyes: normal inspection ENT: normal ENT inspection Neck: supple Respiratory/Chest: chest non-tender, + decreased breath sounds Cardiovascular: regular rate, rhythm Abdomen / GI: normal bowel sounds, non tender, soft Extremities: normal inspection, + pertinent finding (chronic venous stasis changes) Neurologic/Psychiatric: no motor/sensory deficits, alert, normal reflexes, oriented x 3 Hospital Course This is a 71 yo F with PMHx of HTN, acute on chronic diastolic CHF, EF= 55-60%, chronic afib on xarelto, cor pulmonale, hx of R thoracentesis on 11/16/16, hypothyroidism, chronic bilateral lower extremity lymphadema, depression, anxiety, hx of endometrial cx, presenting to the ER after 1 day of shortness of breath. Most recently the patient was hospitalized from Nov 08-November 20 for an acute CHF exacerbation with core pulmonale. She underwent a R thoracentesis by Dr. Herman on 11/16/16 with 850mL outs, and fluid cytology was benign. She has been in and out of the hospital for numerous admission since the beginning of the year for different reasons. Most recently she was a [facility] and discharged from there about 3.5 weeks ago. The patient is present with her . She report yesterday evening when she attempted to get up and walk to the bathroom, she knew she was significantly short of breath compared to normal. She normally wears 3L supplemental O2 at baseline, and was not wearing this when ambulating to the bathroom, but states this is normally what she does. She tripped over her own foot and walker when attempting to get up and fell, but denies any LOC or trauma sustained to her head. Today she feels sore, but doesn't know if she is bruised. Her breathing continued to be bad when she woke up this morning. The patient reports also feeling flutter when she exerts herself with even walking, lightheadedness, and occasionally some substernal chest discomfort. She denies any chest pain currently. Her diet has been sodium restricted, and reports adequate fluid intake. She denies nausea or vomiting. Her bowels moved this morning. Here in the ED the patient was initially placed on 6L O2, and has been able to be weaned down to her baseline of 3L. Her Co2=46, Alk uskk=842, albumin 3.2. WBC is 8K, hgb and platelets stable. CXR was obtained showing cardiomegaly with evidence of congestive failure and mild interstitial edema. Also with bilateral pleural effusions with associated consolidation are noted. EKG reviewed and shows NSR with 1st degree AV block. Assessment and Plan 71 yo F with PMHx of HTN, acute on chronic diastolic CHF, EF= 55-60%, chronic afib on xarelto, cor pulmonale, hx of R thoracentesis on 11/16/16, hypothyroidism , chronic bilateral lower extremity lymphedema, depression, anxiety, hx of endometrial cx, Acute on Chronic CHF exacerbation, Cor Pulmonale bumex 2 mg BID change to po , use current weight as dry weight - ultrasound of the Right lung shows small effusion, 390 cc. Pt underwent procedure on 11/16/16 and had 850 mL out. Hypercarbia obesity hypoventilation syndrome, possibly copd, did work in an environment with much second hand smoke, improved with steroids, nebs, bipap while sleeping has improved dramatically , will recommend pulmonary eval as outpt, possible pfts. Atrial Fibrillation, chronic xarelto 20 mg daily, metoprolol succ 150 mg qAM, and Cardizem 240 mg qAM, she claims reliantly taking med, so doubt PE as alternative cause of CELAYA CKD 2 monitored with PRP and blood pressure control DM II A1C 6.8 Restarted Insulin 75/25 , eighty units bid at mo. Hypothyroidism stable levothyroxine 50 mcg daily Depression/Anxiety zoloft 50 mg daily, xanax 1 mg BID for anxiety Total Time Spent: Greater than 30 minutes This includes examination of the patient, discharge planning, medication reconciliation, and communication with other providers. Discharge Instructions Please refer to the electronic Patient Visit Report (Discharge Instructions) for additional information. Follow-Up PCP in two weeks.
[2017-03-13] MEDS ORDERED: CLIN300C2 PO (12:33)
== END 2017-01-07 19:41 | disposition home health service (06) | DRG 291 ==
LOC: ENRESERVTM → ENRESERVDT → EDBD 08:57 → C.EDA 08:58 → C.2T 11:40 → C.MS2W 01-06 16:28
PROVIDERS: ADMIT Internal Medicine; ATTEND Internal Medicine
DX: I13.0 Hypertensive heart and chronic kidney disease with heart failure and stage 1 through stage 4 chronic kidney disease, or unspecified chronic kidney disease (principal); I50.33 Acute on chronic diastolic (congestive) heart failure; Z68.43 Body mass index [BMI] 50.0-59.9, adult; E66.2 Morbid (severe) obesity with alveolar hypoventilation; J44.1 Chronic obstructive pulmonary disease with (acute) exacerbation; N18.2 Chronic kidney disease, stage 2 (mild); I27.81 Cor pulmonale (chronic); I44.0 Atrioventricular block, first degree; I48.2 Chronic atrial fibrillation; E11.22 Type 2 diabetes mellitus with diabetic chronic kidney disease; E78.5 Hyperlipidemia, unspecified; E03.9 Hypothyroidism, unspecified; I89.0 Lymphedema, not elsewhere classified; F32.9 Major depressive disorder, single episode, unspecified; F41.9 Anxiety disorder, unspecified; Z91.81 History of falling; Z99.81 Dependence on supplemental oxygen; Z77.22 Contact with and (suspected) exposure to environmental tobacco smoke (acute) (chronic); Z79.01 Long term (current) use of anticoagulants; Z79.4 Long term (current) use of insulin; Z79.51 Long term (current) use of inhaled steroids; Z79.899 Other long term (current) drug therapy

== ENCOUNTER 2017-02-09 22:21 | Inpatient (IN) | payer OTHER ==
[~2017-02-09] VITALS: Ht 157.5 cm; Wt 139.8 kg
[~2017-02-09 22:21] MED LIST changes: +ARFO15NE INH; -INSDGIPEN SC; +INSU75IN2 SQ; -NVLGI/PEN SC; +TRIA0.022 EXT
[2017-02-09] MEDS ORDERED: LISI-461 PO (23:39)
[2017-02-09] MEDS ORDERED: METO100T44 PO (23:41)
[2017-02-10] VITALS (9 sets, daily range): BP systolic 95–126; BP diastolic 59–72; PULSE 57–105; TEMP 36.4–36.9; O2SAT 79–98; Ht 157.5 cm; Wt 139.8 kg
--- NOTE | 2017-02-10 00:21 | EMERGENCY ROOM VISIT NOTE ---
History Report prepared by Jose: Tha Norman Under the Supervision of: Dr. Mercy Rosenbaum D.O. First contact with patient: 22:58 Chief Complaint: SHORTNESS OF BREATH Stated Complaint: SOB/UPPER EXTREMITIES-PAIN/SHAKES Nursing Triage Summary: pt called emd for new onset hands and feet shaking . hx a fib, dm,gout, wears home o2 3l,had a paracentesis a few months ago, removed 800ml from right lung per pt. states she is no more SOB today than usual for her. History of Present Illness The patient is a 71 year old female who presents to the Emergency Room with complaints of persistent illness that started today. The patient complains of shaking that worsened today, weakness, pain in hands, soreness in her legs, and feeling hot and cold. The patient has been having persistent shortness of breath for the past few months and is on oxygen at home. She also complains of burning with urination. Earlier today, the patient also states her blood pressure was lower than normal. The patient has had three admissions to the hospital in the past few months for UTI, pneumonia, and CHF. The patient has a history of thoracentesis from 3 months ago. Also, three weeks ago the patient's water pill dose has increased. The patient denies abdominal pain or diarrhea at this time. She has been able to eat and drink fluids today. She has been feeling increasingly weak over the past 2 days. Source of History: patient Onset: today Position: other (global) Timing: other (persistent) Associated Symptoms: + SOB, + urinary symptoms (burning with urination), + weakness, No abdominal pain, No diarrhea Note: Other associated symptoms: shaking, pain in hands, soreness in legs, feeling hot and cold Review of Systems See HPI for pertinent positives & negatives. A total of 10 systems reviewed and were otherwise negative. Past Medical & Surgical Medical Problems: (1) Acquired lymphedema (2) Acute on chronic CHF exacerbation, core pulmonale (3) Atrial flutter (4) CHF exacerbation (5) Diab W Oth Coma, Type I [Juvenile Type], Uncontrolled (6) Diabetes mellitus type 2, uncontrolled (7) Endometrial cancer (8) Epistaxis (9) Hypertension Nos (10) Hypertension Nos (11) Hypothyroidism (12) Morbid obesity (13) Obesity (14) Pleural effusion (15) Sciatica (16) Weakness Surgical Problems: (1) S/P thoracentesis Family History FH: Alzheimers disease Hypertension Stroke Social History Smoking Status: Never Smoker Alcohol Use: none Drug Use: none Marital Status: Housing Status: lives with family Occupation Status: retired Current/Historical Medications Scheduled Allopurinol (Zyloprim), 100 MG PO DAILY AT 1200 Arformoterol Tartrate (Brovana), 15 MCG INH BID Atorvastatin (Lipitor), 40 MG PO QPM Bumetanide (Bumetanide), 2 MG PO BID17 Cholecalciferol (Vitamin D3), 2,000 INTER.UNIT PO DAILY Diltiazem Hcl Extended Release (Diltiazem Hcl), 240 MG PO QAM Docusate Sodium (Colace), 100 MG PO BID Fluticasone Propionate (Flovent Hfa), 1 PUFFS INH BID Hydrocortisone 1% (Hydrocortisone 1%), 1 APPL TOP BID Insulin Lispro Protamine & Lis (Humalog Mix 75/25 Kwikpen), 80 UNITS SQ Q12 Levothyroxine Sodium (Levothyroxine Sodium), 50 MCG PO QAM Lisinopril (Zestril), 10 MG PO DAILY Magnesium Oxide (Mag-Ox), 400 MG PO DAILY AT NOON Metoprolol Succ (Toprol Xl) (Toprol-Xl ), 100 MG PO DAILY Oxygen (Oxygen), 3 LITERS NA CONTINOUS Triamcinolone Acetonide (Topic (Triamcinolone Acet 0.025%), 1 APPLN EXT BID Scheduled PRN Alprazolam (Xanax), 0.5 MG PO BID PRN for Anxiety Eflornithine Hcl (Vaniqa), 1 APPLN TOP BID PRN for Hirsutism Allergies Coded Allergies: Mineral Oil (Verified Allergy, Intermediate, LEGS SWELL, 02/09/17) Penicillins (Verified Allergy, Intermediate, HIVES, 02/09/17) Petrolatum (Verified Allergy, Intermediate, LEGS SWELL, 02/09/17) Uncoded Nonscreenable Allergen (Verified Allergy, Unknown, FLAVONOIDS, ) Metronidazole (Verified Adverse Reaction, Unknown, NAUSEA, 02/09/17) Physical Exam Vital Signs Date Time Temp Pulse Resp B/P Pulse Ox O2 Delivery O2 Flow Rate FiO2 02/10/17 02:41 76 18 100/42 95 Nasal Cannula 3.0 02/09/17 22:40 36.7 85 22 158/75 96 Nasal Cannula 3.0 02/09/17 22:38 76 02/09/17 22:35 96 Nasal Cannula 3.0 02/09/17 22:35 96 Nasal Cannula 3.0 Physical Exam General: morbidly obese female, appears frustrated and short of breath. HEENT: Head - normocephalic and atraumatic Pupils are equal, round, and reactive to light. Extraocular eye muscles are intact, and sclera are anicteric. Nose - moist nasal mucosa without discharge. Mouth - moist buccal mucosa. Oropharynx is nonerythematous and there is no tonsillar exudate or edema noted. Neck: Supple; no JVD, nuchal rigidity, cervical lymphadenopathy. Heart: Heart sounds are distant secondary to body habitus. Lungs: Diminished breath sounds in all lung figueroa. Abdomen: Soft, completely nontender, nondistended, with good bowel sounds. There are no palpable pulsatile masses or hepatosplenomegaly. There is no guarding, rigidity, or rebound noted. Extremities: Edema to both lower extremities with associated erythema which is chronic. There are easily palpable peripheral pulses. Skin: warm and dry with good turgor and no rashes. Medical Decision & Procedures ER Provider Diagnostic Interpretation: Chest X-ray interpreted by me: Recurrence of right-sided pleural effusion, findings consistent with CHF, cardiomegaly. Laboratory Results 02/10/17 00:35 Red Blood Count 4.70, Mean Corpuscular Volume 89.4, Mean Corpuscular Hemoglobin 27.9, Mean Corpuscular Hemoglobin Concent 31.2, Mean Platelet Volume 8.8, Neutrophils (%) (Auto) 85.9, Lymphocytes (%) (Auto) 7.3, Monocytes (%) (Auto) 5.7, Eosinophils (%) (Auto) 0.7, Basophils (%) (Auto) 0.2, Neutrophils # (Auto) 11.18, Lymphocytes # (Auto) 0.95, Monocytes # (Auto) 0.74, Eosinophils # (Auto) 0.09, Basophils # (Auto) 0.03 Test 02/09/17 00:00 02/10/17 00:35 Urine Color YELLOW Urine Appearance CLEAR (CLEAR) Urine pH 8.5 (4.5-7.5) Urine Specific Elizabeth 1.015 (1.000-1.030) Urine Protein 1+ (NEG) Urine Glucose (UA) NEG (NEG) Urine Ketones NEG (NEG) Urine Occult Blood NEG (NEG) Urine Nitrite NEG (NEG) Urine Bilirubin NEG (NEG) Urine Urobilinogen NEG (NEG) Urine Leukocyte Esterase TRACE (NEG) Urine WBC (Auto) 1-5 /hpf (0-5) Urine RBC (Auto) 0-4 /hpf (0-4) Urine Hyaline Casts (Auto) 1-5 /lpf (0-5) Urine Epithelial Cells (Auto) >30 /lpf (0-5) Urine Bacteria (Auto) 1+ (NEG) White Blood Count 13.01 K/uL (4.8-10.8) Red Blood Count 4.70 M/uL (4.2-5.4) Hemoglobin 13.1 g/dL (12.0-16.0) Hematocrit 42.0 % (37-47) Mean Corpuscular Volume 89.4 fL (80-100) Mean Corpuscular Hemoglobin 27.9 pg (25-34) Mean Corpuscular Hemoglobin Concent 31.2 g/dl (32-36) Platelet Count 231 K/uL (130-400) Mean Platelet Volume 8.8 fL (7.4-10.4) Neutrophils (%) (Auto) 85.9 % Lymphocytes (%) (Auto) 7.3 % Monocytes (%) (Auto) 5.7 % Eosinophils (%) (Auto) 0.7 % Basophils (%) (Auto) 0.2 % Neutrophils # (Auto) 11.18 K/uL (1.4-6.5) Lymphocytes # (Auto) 0.95 K/uL (1.2-3.4) Monocytes # (Auto) 0.74 K/uL (0.11-0.59) Eosinophils # (Auto) 0.09 K/uL (0-0.5) Basophils # (Auto) 0.03 K/uL (0-0.2) RDW Standard Deviation 56.3 fL (36.4-46.3) RDW Coefficient of Variation 17.2 % (11.5-14.5) Immature Granulocyte % (Auto) 0.2 % Immature Granulocyte # (Auto) 0.02 K/uL (0.00-0.02) Nucleated RBC Absolute Count (auto) 0.02 K/uL (0-0) Nucleated Red Blood Cells % 0.2 % Est Creatinine Clear Calc Drug Dose 59.2 ml/min Total Bilirubin 1.1 mg/dl (0.2-1) Aspartate Amino Transf (AST/SGOT) U/L (15-37) Alanine Aminotransferase (ALT/SGPT) 27 U/L (12-78) Alkaline Phosphatase 207 U/L (45-117) Troponin I 0.020 ng/ml (0-0.045) Pro-B-Type Natriuretic Peptide 451 pg/ml (0-900) Total Protein 8.0 gm/dl (6.4-8.2) Albumin 3.6 gm/dl (3.4-5.0) Globulin 4.4 gm/dl (2.5-4.0) Albumin/Globulin Ratio 0.8 (0.9-2) Thyroid Stimulating Hormone (TSH) 2.940 uIu/ml (0.300-4.500) Laboratory results per my review. ECG Indication: weakness Rate (beats per minute): 64 Rhythm: sinus rhythm Findings: 1st degree AV block, no acute ischemic change, no ectopy, other ( poor baseline for interpretation) ED Course 2310: Past medical records reviewed. The patient was evaluated in room B2. A complete history and physical exam was performed. Laboratory studies were drawn as above. Twelve-lead EKG was obtained. Chest x-ray was obtained as described above. 0128: At this time, I reevaluated the patient and she was resting. She states that her shaking has stopped and she does feel slightly better. I discussed some of her initial results with her. 0215: At this time, I checked on the patient again. I updated her on her imaging results and discussed the rest of her findings with her. The patient told me that she has significant weakness and could not possibly go home. 0255: At this time, I discussed the patient's case with Dr. Park - Hospitalist MARY and he agreed to accept the patient for further evaluation. Medical Decision The patient is a 71 year old female who presents to the ED with illness. Differential diagnosis includes CHF, UTI, dehydration, hypotension, electrolyte abnormality, or hypoglycemia. Labs reviewed by me: white count 13, stable H&H, CO2 42 which is about baseline for patient, BUN 25, creatinine 1.2, glucose 54, total bilirubin 1.1, alkaline phosphatase 207, troponin 0.020, BNP 451, normal TSH, urinalysis: trace leukocyte esterase, 1+ bacteria, no white blood cells, sent for culture. I attest that I have personally reviewed the patient's current medication list. Patient was found to have an elevated blood pressure and was referred to their primary doctor for recheck and further treatment once she is discharged . It appears that the patient has evidence of congestive heart failure on chest x- ray and recurrent right-sided pleural effusion. This most likely accounts for the patient's increased shortness of breath. The patient was hypoglycemic on chemistries and was given food here in the emergency department. This may account for the patient's weakness at this time. The patient was extremely frustrated stating that the doctors who admitted her to the hospital last time told her that she would never have recurrent pleural effusions and would never require thoracentesis again. I discussed this with her and thought there must been some misunderstanding or communication breakdown. The patient also questioned the documented diagnosis of COPD as she had never been told in the past that she had lung disease. I discussed the case with the [facility] hospitalist and they will evaluate her for further management. Consults Time Called: 0250 Consulting Physician: Dr. Park - Hospitalist [facility] [place] Returned Call: [phone] At this time, I discussed the patient's case with Dr. Park and he agreed to accept the patient for further evaluation. Impression Primary Impression: Congestive heart failure Additional Impression: Pleural effusion Scribe Attestation The scribe's documentation has been prepared under my direction and personally reviewed by me in its entirety. I confirm that the note above accurately reflects all work, treatment, procedures, and medical decision making performed by me. Departure Information Dispostion Being Evaluated By Hospitalist Referrals Raymond Fierro M.D. (PCP) Problem Qualifiers
[2017-02-10 00:56] LABS: BASO % 0.2 %; BASO ABS # 0.03 K/uL (0-0.2); COMPLETE YES; EOS % 0.7 %; IG% 0.2 %; LYMPH % 7.3 %; LYMPH ABS # 0.95 K/uL (1.2-3.4); MEAN CELL VOLUME 89.4 fL (80-100); MEAN CORPUSCULAR HEMOGLOBIN 27.9 pg (25-34); MEAN CORPUSCULAR HGB CONC 31.2 g/dl (32-36); MEAN PLATELET VOLUME 8.8 fL (7.4-10.4); MONO % 5.7 %; NEUT % 85.9 %; PLATELET COUNT 231 K/uL (130-400); WHITE BLOOD COUNT 13.01 K/uL (4.8-10.8)
[2017-02-10 00:59] LABS: URINE APPEARANCE CLEAR (CLEAR); URINE BILIRUBIN NEG (NEG); URINE COLOR YELLOW; URINE EPITHELIAL CELL AUTO >30 /lpf (0-5); URINE NITRITE NEG (NEG); URINE PH 8.5 (4.5-7.5); URINE SPECIFIC GRAVITY 1.015 (1.000-1.030); UROBILINOGEN NEG (NEG)
[2017-02-10 01:10] LABS: MANUAL MICROSCOPIC REQUIRED? NO; REVIEW REQ? NO; SULFASALICYLIC ACID POS (NEG)
[2017-02-10 02:03] LABS: ALB/GLOB RATIO 0.8 (0.9-2); ALKALINE PHOSPHATASE 207 U/L (45-117); ALT/SGPT 27 U/L (12-78); BLOOD UREA NITROGEN 25 mg/dl (7-18); CALCIUM 9.3 mg/dl (8.5-10.1); CARBON DIOXIDE 42 mmol/L (21-32); CHLORIDE 93 mmol/L (98-107); GLUCOSE 54 mg/dl (70-99); SODIUM 141 mmol/L (136-145)
[2017-02-10] MEDS ORDERED: POLYETHYLENE (MIRALAX) 17 GM PACK PO PRN (03:00)
[2017-02-10] MEDS ORDERED: ACETAMINOPHEN 325 MG TAB PO PRN (03:00)
[2017-02-10] MEDS ORDERED: ONDANSETRON INJ 2 MG/ML 2 ML VIAL IV PRN (03:00)
[2017-02-10] MEDS ORDERED: MAGNESIUM HYDROXIDE SUSP 30 ML UDC PO PRN (03:00)
[2017-02-10] MEDS ORDERED: ALUMINUM/MAGNESIUM/SIMETH (MAALOX MAX) 30 ML UDC PO PRN (03:00)
--- NOTE | 2017-02-10 03:25 | History and Physical ---
History & Physical Date & Time of Service: February 10, 2017 at 03:12 Chief Complaint: Sob/Upper Extremities-Pain/Shakes Primary Care Physician: Raymond Fierro M.D. History of Present Illness Source: patient 71 y/o F Hx diastolic CHF, morbid obesity, DM, PAF, recurrent pleural effusions , chronic hypercarbic respiratory failure. She has been admitted a total of 4 times this year for PNM and then CHF exacerbations. She presents with weakness and progressive exertional dyspnea. This has been her chief complaint during recent admissions. She was admitted with a CHF exacerbation 11/30 and had a thoracentesis extracting 850cc from her R lung which served to improve her condition. She does not C/O CP, a productive cough, N/V, fevers or dysuria. Her exertional dyspnea is such that she cannot presently ambulate the length of her house. A CXR is consistent with vascular congestion and reaccumulation of her effusion. She is dependent on continuous home 02 at 3L although she states that this is due to her heart rather than any lung condition. Past Medical/Surgical History Medical Problems: (1) Acquired lymphedema Status: Chronic (2) Atrial flutter - paroxysmal Status: Chronic (3) CHF exacerbation Status: Resolved (4) Recurrent pleural effusions Status: Chronic (5) Diabetes mellitus type 2, uncontrolled Status: Chronic (6) Endometrial cancer Status: Resolved (7) Epistaxis Status: Resolved (8) Hypertension Nos Status: Chronic (9) Hypothyroidism Status: Chronic (10) Morbid obesity Status: Chronic (11) Sciatica Status: Chronic 12) Per review of recent records she likely suffers from obesity hypoventialtion and chronic hypoxic respiratory failure. Surgical Problems: (1) S/P thoracentesis Status: Resolved Family History FH: Alzheimers disease Hypertension Stroke Social History Smoking Status: Never Smoker Drug Use: none Marital Status: Housing status: lives with family, senior living Occupational Status: retired Immunizations History of Influenza Vaccine: Unknown Influenza Vaccine Date: Jul 25, 2012 History of Tetanus Vaccine?: Unknown History of Pneumococcal: Unknown History of Hepatitis B Vaccine: Unknown Multi-Drug Resistant Organisms History of MDRO: No Allergies Coded Allergies: Mineral Oil (Verified Allergy, Intermediate, LEGS SWELL, 02/09/17) Penicillins (Verified Allergy, Intermediate, HIVES, 02/09/17) Petrolatum (Verified Allergy, Intermediate, LEGS SWELL, 02/09/17) Uncoded Nonscreenable Allergen (Verified Allergy, Unknown, FLAVONOIDS, ) Metronidazole (Verified Adverse Reaction, Unknown, NAUSEA, 02/09/17) Home Medications Scheduled Allopurinol (Zyloprim), 100 MG PO DAILY AT 1200 Arformoterol Tartrate (Brovana), 15 MCG INH BID Atorvastatin (Lipitor), 40 MG PO QPM Bumetanide (Bumetanide), 2 MG PO BID17 Cholecalciferol (Vitamin D3), 2,000 INTER.UNIT PO DAILY Diltiazem Hcl Extended Release (Diltiazem Hcl), 240 MG PO QAM Docusate Sodium (Colace), 100 MG PO BID Fluticasone Propionate (Flovent Hfa), 1 PUFFS INH BID Hydrocortisone 1% (Hydrocortisone 1%), 1 APPL TOP BID Insulin Lispro Protamine & Lis (Humalog Mix 75/25 Kwikpen), 80 UNITS SQ Q12 Levothyroxine Sodium (Levothyroxine Sodium), 50 MCG PO QAM Lisinopril (Zestril), 10 MG PO DAILY Magnesium Oxide (Mag-Ox), 400 MG PO DAILY AT NOON Metoprolol Succ (Toprol Xl) (Toprol-Xl ), 100 MG PO DAILY Oxygen (Oxygen), 3 LITERS NA CONTINOUS Triamcinolone Acetonide (Topic (Triamcinolone Acet 0.025%), 1 APPLN EXT BID Scheduled PRN Alprazolam (Xanax), 0.5 MG PO BID PRN for Anxiety Eflornithine Hcl (Vaniqa), 1 APPLN TOP BID PRN for Hirsutism Review of Systems Constitutional: + fatigue, + weakness, No chills, No fever, No sweats Eyes: No eye pain, No worsening of vision ENT: No hearing loss, No nasal symptoms, No unusual epistaxis Respiratory: + dyspnea at rest, + dyspnea on exertion, + shortness of breath, No cough, No sputum, No wheezing Cardiovascular: + orthopnea, No PND, No chest pain Abdomen: No nausea, No pain, No vomiting Musculoskeletal: + problem reported (Chronic LE edema), No joint pain, No muscle pain Genitourinary - Female: No dysuria, No hematuria Neurologic: + weakness, No memory loss, No paralysis Psychiatric: No anhedonism, No depression symptoms Endocrine: + fatigue Hematologic / Lymphatic: No abnormal bleeding/bruising Integumentary: + problem reported (Chronic LE stasis changes), No rash Allergic / Immunologic: No environmental allergies Physical Exam Vital Signs Date Time Temp Pulse Resp B/P Pulse Ox O2 Delivery O2 Flow Rate FiO2 02/10/17 02:41 76 18 100/42 95 Nasal Cannula 3.0 02/09/17 22:40 36.7 85 22 158/75 96 Nasal Cannula 3.0 02/09/17 22:38 76 02/09/17 22:35 96 Nasal Cannula 3.0 02/09/17 22:35 96 Nasal Cannula 3.0 General Appearance: WD/WN, no apparent distress, + pertinent finding (PLeasant enough elderly female in no acute distress, difficulty with any significant mobility) Head: normocephalic Eyes: normal inspection ENT: normal ENT inspection, pharynx normal Neck: supple, + pertinent finding (CAnnot examine JVD due to habitus) Respiratory/Chest: chest non-tender, + decreased breath sounds, + crackles (R ) , + pertinent finding (Limited exam due to habitus) Cardiovascular: + irregularly irregular, + pertinent finding (faint sounds - limited exam) Abdomen/GI: normal bowel sounds, non tender, soft, no organomegaly Back: normal inspection, no CVA tenderness Extremities/Musculoskelatal: + pedal edema Neurologic/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: 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 as tested, no motor/sensory deficits, alert, normal mood/affect, normal reflexes, oriented x 3 Skin: normal color, warm/dry, + pertinent finding (stasis changes of LEs) Diagnostics Laboratory Results Results Past 24 Hours Test 02/10/17 00:35 Range/Units White Blood Count 13.01 4.8-10.8 K/uL Red Blood Count 4.70 4.2-5.4 M/uL Hemoglobin 13.1 12.0-16.0 g/dL Hematocrit 42.0 37-47 % Mean Corpuscular Volume 89.4 80-100 fL Mean Corpuscular Hemoglobin 27.9 25-34 pg Mean Corpuscular Hemoglobin Concent 31.2 32-36 g/dl Platelet Count 231 130-400 K/uL Mean Platelet Volume 8.8 7.4-10.4 fL Neutrophils (%) (Auto) 85.9 % Lymphocytes (%) (Auto) 7.3 % Monocytes (%) (Auto) 5.7 % Eosinophils (%) (Auto) 0.7 % Basophils (%) (Auto) 0.2 % Neutrophils # (Auto) 11.18 1.4-6.5 K/uL Lymphocytes # (Auto) 0.95 1.2-3.4 K/uL Monocytes # (Auto) 0.74 0.11-0.59 K/uL Eosinophils # (Auto) 0.09 0-0.5 K/uL Basophils # (Auto) 0.03 0-0.2 K/uL RDW Standard Deviation 56.3 36.4-46.3 fL RDW Coefficient of Variation 17.2 11.5-14.5 % Immature Granulocyte % (Auto) 0.2 % Immature Granulocyte # (Auto) 0.02 0.00-0.02 K/uL Nucleated RBC Absolute Count (auto) 0.02 0-0 K/uL Nucleated Red Blood Cells % 0.2 % Sodium Level 141 136-145 mmol/L Potassium Level 3.5-5.1 mmol/L Chloride Level 93 98-107 mmol/L Carbon Dioxide Level 42 21-32 mmol/L Anion Gap 6.0 3-11 mmol/L Blood Urea Nitrogen 25 7-18 mg/dl Creatinine 1.20 0.60-1.20 mg/dl Est Creatinine Clear Calc Drug Dose 59.2 ml/min Estimated GFR () 52.3 Estimated GFR (Non- 45.1 BUN/Creatinine Ratio 21.0 10-20 Random Glucose 54 70-99 mg/dl Calcium Level 9.3 8.5-10.1 mg/dl Total Bilirubin 1.1 0.2-1 mg/dl Aspartate Amino Transf (AST/SGOT) 15-37 U/L Alanine Aminotransferase (ALT/SGPT) 27 12-78 U/L Alkaline Phosphatase 207 45-117 U/L Troponin I 0.020 0-0.045 ng/ml Pro-B-Type Natriuretic Peptide 451 0-900 pg/ml Total Protein 8.0 6.4-8.2 gm/dl Albumin 3.6 3.4-5.0 gm/dl Globulin 4.4 2.5-4.0 gm/dl Albumin/Globulin Ratio 0.8 0.9-2 Thyroid Stimulating Hormone (TSH) 2.940 0.300-4.500 uIu/ml Diagnostic Radiology Vascular congestion - B/L effusions R>L Reduced lung capacity EKG Sinus - irreg - 1st degree AV block - low voltage Impression Assessment and Plan 71 y/o F Hx diastolic CHF, morbid obesity, DM, PAF, recurrent pleural effusions , chronic hypercarbic respiratory failure. She has been admitted a total of 4 times this year for PNM and then CHF exacerbations. She presents with weakness and progressive exertional dyspnea. This has been her chief complaint during recent admissions. She was admitted with a CHF exacerbation 11/30 and had a thoracentesis extracting 850cc from her R lung which served to improve her condition. She does not C/O CP, a productive cough, N/V, fevers or dysuria. Her exertional dyspnea is such that she cannot presently ambulate the length of her house. A CXR is consistent with vascular congestion and reaccumulation of her effusion. She is dependent on continuous home 02 at 3L although she states that this is due to her heart rather than any lung condition. 1) CHF - pleural effusion - unclear if additional diuresis will help - will cont her BID Bumex following an additional IV dose. daily weights and Is/Os requested. A Thoracentesis is scheduled as this helped substantially last time. We will consult cardiothoracic due to the potential difficulty of the procedure in this pt. She may benefit from scheduled outpt thoracentesis. 2) Chronic SOB and 02-dependence. She states she was recently told she has COPD. In actuality her disease is more likely combined with a significant restrictive element. She is chronically hyopercarbic likely due to obesity hypoventilation. We will cont an 02 protocol and cont her inhalers as prescribed. 3) DM - hypoglycemic on arrival to the ER without concurrent symptoms - placed on SS 4) PAF - she is in a sinus rhythm on arrival - cont Xarelto and a B markos 5) Obesity - this is the pts central issue in which case diet and exercise however minimal may be the only effective long-term modality - she should have home PT upon D/C if she does not proceed to rehab - dietary counseling should be provided Full code - takes daily Xarelto Total time for this admit including review of labs, meds, EKG, CXR - discussion with pt, and ER attending 46 min Level of Care Telemetry Resuscitation Status FULL RESUSCITATION VTE Prophylaxis VTE Risk Assessment Done? Y/N: Yes Risk Level: Moderate Given or contraindicated: Other Anticoagulation
[2017-02-10] MEDS ORDERED: BUMETANIDE IV 2 MG in SYRINGE 0 ML IV ONE (05:00)
[2017-02-10] MEDS ORDERED: GLUCOSE 40% GEL 15 GM TUBE PO PRN (05:15)
[2017-02-10] MEDS ORDERED: GLUCOSE 10 TABS/TUBE PO PRN (05:15)
[2017-02-10] MEDS ORDERED: GLUCAGON FOR INJ 1 MG VIAL SQ PRN (05:15)
[2017-02-10] MEDS ORDERED: DEXTROSE 50% 50 ML SYR IV PRN (05:15)
[2017-02-10] MEDS ORDERED: HEPARIN SOD 5000 UNIT/0.5 ML CARP SQ SCH (06:00)
[2017-02-10] MEDS: NITROGLYCERIN OINT 2% 1GM PACKET EXT SCH ×4 (06:36→23:12)
[2017-02-10] MEDS: LEVOTHYROXINE 50 MCG TAB PO SCH (06:36)
--- NOTE | 2017-02-10 06:37 | DIAGNOSTIC IMAGING REPORT ---
CHEST ONE VIEW PORTABLE CLINICAL HISTORY: Shortness of breath. COMPARISON STUDY: Radiograph January 04, 2017. FINDINGS: There is no pneumothorax. A small right pleural effusion is present. Associated right basilar opacity. There is mild left basilar opacity. There is no overt edema. Cardiomediastinal silhouette is stable. IMPRESSION: 1. Small right pleural effusion with associated right basilar opacity. 2. Mild left basilar opacity which favors atelectasis. 3. No evidence for overt pulmonary edema. Electronically signed by: Ashvin Gee M.D. 02/10/2017 6:35 AM Dictated Date/Time: 02/10/2017 6:34 AM
[2017-02-10] MEDS: INSULIN ASPART 100 UNITS/ML 3 ML PEN SC SCH ×4 (07:00→21:17)
[2017-02-10 07:55] LABS: BUN/CREATININE RATIO 21.8 (10-20); CALCIUM 8.8 mg/dl (8.5-10.1); CREATININE 1.1 mg/dl (0.60-1.20); POTASSIUM 3.3 mmol/L (3.5-5.1)
[2017-02-10] MEDS ORDERED: ARFORMOTEROL TART 15MCG/2ML VIAL INH SCH (08:00)
[2017-02-10] MEDS: MAGNESIUM OXIDE 400 MG TAB PO SCH (08:13)
[2017-02-10] MEDS: LISINOPRIL 10 MG TAB PO SCH (08:13)
[2017-02-10] MEDS: DOCUSATE SODIUM 100 MG CAP PO SCH ×2 (08:13→21:08)
[2017-02-10] MEDS: ALLOPURINOL 100 MG TAB PO SCH (08:13)
[2017-02-10] MEDS: METOPROLOL SUCC 50MG EXT REL TAB PO SCH (08:14)
[2017-02-10] MEDS: DILTIAZEM HCL 120 MG ER CAP PO SCH (08:14)
[2017-02-10] MEDS: BUMETANIDE 1 MG TAB PO SCH ×2 (08:15→17:14)
[2017-02-10] MEDS: CHOLECALCIFEROL 1000 INTER.UNIT TAB PO SCH (08:15)
[2017-02-10] MEDS: FLUTICASONE PROP HFA INH 44 MCG INHALER INH SCH ×2 (08:16→21:08)
[2017-02-10] MEDS: HYDROCORTISONE 1% CR 30 GM TUBE EXT SCH ×2 (08:19→21:07)
[2017-02-10] MEDS: TRIAMCINOLONE ACET 0.025% CR 15 GM TUBE EXT SCH ×2 (08:19→21:07)
[2017-02-10] MEDS ORDERED: POTASSIUM CHLORIDE 10 MEQ TABCR PO STA (08:54)
--- NOTE | 2017-02-10 10:46 | DIAGNOSTIC IMAGING REPORT ---
CHEST ONE VIEW PORTABLE CLINICAL HISTORY: S/P Thoracentesis COMPARISON STUDY: Chest radiograph performed February 09, 2017. FINDINGS: The right pleural effusion has significantly decreased in size since prior exam. No pneumothorax is identified. Mild bibasilar opacities favor atelectasis. Cardiomegaly is again noted. There is pulmonary vascular congestion. IMPRESSION: No pneumothorax following right thoracentesis. No residual right pleural effusion identified by radiography. Electronically signed by: Ashvin Gee M.D. 02/10/2017 10:44 AM Dictated Date/Time: 02/10/2017 10:43 AM
[2017-02-10 11:30] LABS: PLEURAL FLUID TOTAL PROTEIN 3.6 g/dl
[2017-02-10 12:07] LABS: PLEURAL FLUID APPEARANCE CLOUDY; PLEURAL FLUID COLOR AMBER; PLEURAL FLUID MONONUC RELAT 83.4 %; PLEURAL FLUID POLYNUC 16.6 %; PLEURAL FLUID SOURCE RIGHT LUNG; PLEURAL FLUID WBC (A) 1948 /uL
--- NOTE | 2017-02-10 12:08 | Pulmonary Consultation ---
History General Date of Service: February 10, 2017. Stated Complaint: Pleural Effusion HPI The patient is a 71 year old female with h/o chronic hypercarbic respiratory failure, morbid obesity with obesity-hypoventilation syndrome,a-flutter, diastolic HF, multiple admissions for acute on chronic respiratory failure, last time had a right thoracentesis on 11/16m draining 850 ml of kaitlyn colored transudative fluid. Now, the patient has been in her usual state of health until 1 week ago, when she became more short of breath, difficulty ambulating from room to room, associated with non-productive cough, having occasional chills. Underwent a right thoracentesis today, drained again 800-900 ml of kaitlyn colored fluid. The patient wears oxygen at 3 liters/min at home. Tried BIPAP at [facility] for a week, but did not tolerate it, and states that she will be refusing it. Her baseline pCO2 is around 80 Historian: patient Review of Systems Constitutional: reports: chills, fever Eyes: reports: no symptoms ENT: reports: no symptoms Cardiovascular: reports: no symptoms Respiratory: reports: CELAYA, cough, orthopnea, shortness of breath Gastrointestinal: reports: no symptoms Musculoskeletal: reports: no symptoms Neurologic: reports: focal weakness (upper extremities) Past Medical History Past Medical History: A Fib, congestive heart failure (diastolic), diabetes, other (Morbid ovesity, chronic hypercarbic respriatory failure, recurrent b/l pleural effusion, b/l LE lymphedema) Family History FH: Alzheimers disease Hypertension Stroke Social History Hx Tobacco Use In Past Year?: No Smoking Status: Never Smoker Marital status: Housing status: lives with family, skilled nursing Occupational Status: retired Immunizations History of Influenza Vaccine: Unknown Influenza Vaccine Date: Jul 25, 2012 History of Tetanus Vaccine?: Unknown History of Pneumococcal: Unknown History of Hepatitis B Vaccine: Unknown History of MDRO History of MDRO: No Allergies Coded Allergies: Mineral Oil (Verified Allergy, Intermediate, LEGS SWELL, 02/09/17) Penicillins (Verified Allergy, Intermediate, HIVES, 02/09/17) Petrolatum (Verified Allergy, Intermediate, LEGS SWELL, 02/09/17) Uncoded Nonscreenable Allergen (Verified Allergy, Unknown, FLAVONOIDS, ) Metronidazole (Verified Adverse Reaction, Unknown, NAUSEA, 02/09/17) Current Medications Reported Home Medications Medications Dose Route/Sig Max Daily Dose Days Date Category Dose Instructions Toprol-Xl (Metoprolol Succinate) 100 Mg Tabcr 100 Mg PO DAILY 02/09/17 Reported Zestril (Lisinopril) 10 Mg Tab 10 Mg PO DAILY 02/09/17 Reported Brovana (Arformoterol Tartrate) 15 Mcg/2 Ml Neb 15 Mcg INH BID 30 01/07/17 Rx Triamcinolone Acet 0.025% (Triamcinolone Acetonide (Topic) 0.025 % Lot 1 Appln EXT BID 01/03/17 Reported Humalog Mix 75/25 Kwikpen (Insulin Lispro Protamine & Lis) 1 Inj Inj 80 Units SQ Q12 01/03/17 Reported Bumetanide 1 Mg Tab 2 Mg PO BID17 15 11/20/16 Rx Flovent Hfa (Fluticasone Propionate) 120 Puffs/5280 Mcg Aero 1 Puffs INH BID 30 11/08/16 Reported Hydrocortisone 1% (Hydrocortisone) 90 Appln/30 Gm Cr 1 Appl TOP BID 11/08/16 Reported Colace (Docusate Sodium) 100 Mg Cap 100 Mg PO BID 11/08/16 Reported Xanax (Alprazolam) 1 Mg Tab 0.5 Mg PO BID PRN 11/08/16 Reported Vitamin D3 (Cholecalciferol) 2,000 Unit Tab 2,000 Inter.unit PO DAILY 10/18/16 Reported Vaniqa (Eflornithine Hcl) 13.9 % Cre 1 Appln TOP BID PRN 09/07/15 Reported APPLY AND GENTLY MASSAGE INTO AFFECTED AREA. Zyloprim (Allopurinol) 100 Mg Tab 100 Mg PO DAILY AT 1200 09/07/15 Reported Lipitor (Atorvastatin Calcium) 40 Mg Tab 40 Mg PO QPM 09/07/15 Reported Oxygen Gas 3 Liters NA CONTINOUS 05/27/14 Reported USES NEEDED Levothyroxine Sodium 50 Mcg Tab 50 Mcg PO QAM 05/27/14 Reported Diltiazem Hcl (Diltiazem Hcl Extended Release) 240 Mg Cap 240 Mg PO QAM 05/27/14 Reported Mag-Ox (Magnesium Oxide) 400 Mg Tab 400 Mg PO DAILY AT NOON 11/16/13 Reported Physical Physical Exam Vital Signs: Date Time Temp Pulse Resp B/P Pulse Ox O2 Delivery O2 Flow Rate FiO2 02/10/17 11:39 36.9 57 20 104/64 96 Nasal Cannula 3.0 Humidified Oxygen 02/10/17 08:00 Nasal Cannula 3.0 02/10/17 07:45 105 16 79 Room Air 02/10/17 07:22 36.4 72 18 126/72 92 Nasal Cannula 3.0 02/10/17 04:10 36.7 70 18 115/70 94 Nasal Cannula 3.0 02/10/17 02:41 76 18 100/42 95 Nasal Cannula 3.0 02/09/17 22:40 36.7 85 22 158/75 96 Nasal Cannula 3.0 02/09/17 22:38 76 02/09/17 22:35 96 Nasal Cannula 3.0 02/09/17 22:35 96 Nasal Cannula 3.0 General Appearance: WELL-APPEARING, NO APPARENT DISTRESS, obese (morbidly) Eyes: PERRLA ENT: other (left fronto-temporal skin lesion, approx 2 cm, exophytic) Neck: NORMAL RANGE OF MOTION Respiratory: other (Diminished b/l breath sounds, bibasilar crackles, no wheezing) Cardiovasular: irregular rate, other (distant heart sounds) Abdomen: NON TENDER Lower Extremities: edema (extensive, bilateral, chronic skin changes) Neuro: ALERT, ORIENTED x 3 Diagnostics Labs Results Past 24 Hours Test 02/10/17 00:00 02/10/17 00:35 02/10/17 06:41 02/10/17 06:55 Range/Units Pleural Fluid pH 7.49 7.3-7.4 Pleural Fluid Total Protein 3.6 g/dl Pleural Fluid LDH 102 IU Pleural Fluid Glucose 122 mg/dl White Blood Count 13.01 4.8-10.8 K/uL Red Blood Count 4.70 4.2-5.4 M/uL Hemoglobin 13.1 12.0-16.0 g/dL Hematocrit 42.0 37-47 % Mean Corpuscular Volume 89.4 80-100 fL Mean Corpuscular Hemoglobin 27.9 25-34 pg Mean Corpuscular Hemoglobin Concent 31.2 32-36 g/dl Platelet Count 231 130-400 K/uL Mean Platelet Volume 8.8 7.4-10.4 fL Neutrophils (%) (Auto) 85.9 % Lymphocytes (%) (Auto) 7.3 % Monocytes (%) (Auto) 5.7 % Eosinophils (%) (Auto) 0.7 % Basophils (%) (Auto) 0.2 % Neutrophils # (Auto) 11.18 1.4-6.5 K/uL Lymphocytes # (Auto) 0.95 1.2-3.4 K/uL Monocytes # (Auto) 0.74 0.11-0.59 K/uL Eosinophils # (Auto) 0.09 0-0.5 K/uL Basophils # (Auto) 0.03 0-0.2 K/uL RDW Standard Deviation 56.3 36.4-46.3 fL RDW Coefficient of Variation 17.2 11.5-14.5 % Immature Granulocyte % (Auto) 0.2 % Immature Granulocyte # (Auto) 0.02 0.00-0.02 K/uL Nucleated RBC Absolute Count (auto) 0.02 0-0 K/uL Nucleated Red Blood Cells % 0.2 % Sodium Level 141 138 136-145 mmol/L Potassium Level 3.3 3.5-5.1 mmol/L Chloride Level 93 91 98-107 mmol/L Carbon Dioxide Level 42 42 21-32 mmol/L Anion Gap 6.0 5.0 3-11 mmol/L Blood Urea Nitrogen 25 24 7-18 mg/dl Creatinine 1.20 1.10 0.60-1.20 mg/dl Est Creatinine Clear Calc Drug Dose 59.2 64.0 ml/min Estimated GFR () 52.3 58.1 Estimated GFR (Non- 45.1 50.1 BUN/Creatinine Ratio 21.0 21.8 10-20 Random Glucose 54 96 70-99 mg/dl Calcium Level 9.3 8.8 8.5-10.1 mg/dl Total Bilirubin 1.1 0.2-1 mg/dl Aspartate Amino Transf (AST/SGOT) 15-37 U/L Alanine Aminotransferase (ALT/SGPT) 27 12-78 U/L Alkaline Phosphatase 207 45-117 U/L Troponin I 0.020 0-0.045 ng/ml Pro-B-Type Natriuretic Peptide 451 0-900 pg/ml Total Protein 8.0 6.4-8.2 gm/dl Albumin 3.6 3.4-5.0 gm/dl Globulin 4.4 2.5-4.0 gm/dl Albumin/Globulin Ratio 0.8 0.9-2 Thyroid Stimulating Hormone (TSH) 2.940 0.300-4.500 uIu/ml Bedside Glucose 104 70-90 mg/dl Test 02/10/17 10:49 Range/Units Total Bilirubin 1.4 0.2-1 mg/dl Lactate Dehydrogenase 231 84-246 U/L Total Protein 8.0 6.4-8.2 gm/dl Albumin 3.6 3.4-5.0 gm/dl Microbiology Results 02/10/17 Gram Stain, Received Pending 02/10/17 Bacterial Culture, Received Pending Diagnostic Radiology CXR post thoracentesis: FINDINGS: The right pleural effusion has significantly decreased in size since prior exam. No pneumothorax is identified. Mild bibasilar opacities favor atelectasis. Cardiomegaly is again noted. There is pulmonary vascular congestion. IMPRESSION: No pneumothorax following right thoracentesis. No residual right pleural effusion identified by radiography. CXR on admission: FINDINGS: There is no pneumothorax. A small right pleural effusion is present. Associated right basilar opacity. There is mild left basilar opacity. There is no overt edema. Cardiomediastinal silhouette is stable. IMPRESSION: 1. Small right pleural effusion with associated right basilar opacity. 2. Mild left basilar opacity which favors atelectasis. 3. No evidence for overt pulmonary edema. Impression Assessment and Plan 71 year old female, with morbid obesity, diastolic heart failure, presents with shortness of breath, s/p thoracentesis 1. Acute on chronic respiratory failure 2. Bilateral pleural effusions - transudate again 3. Diastolic heart failure 4. Obesity hypoventilation syndrome 5. Atrial flutter 6. Diabetes Plan: Thoracentesis revealed a transudate again, likely the effusions are related to CHF. Follow up fluid cultures, I doubt infectious nature Will start Abx empirically fro possible pneumonic process given her symptoms, Levaquin 750 mg daily, Continue inhaled steroids (Flovent and Brovana) and bronchodilators. No need for systemic steroids. Not officially diagnosed with COPD per my chart review, never smoked. She does follow up with pulmonary and has been on inhaled steroids though. Continue diuresis. Dietary indiscretions may also contribute to fluid overload. Patient really needs nocturnal BIPAP, however, she refuses it. She understands that it will be beneficial, given her extreme CO2 retention. Last time she wore it because she was obtunded. Continue O2 via nasal cannula Fully anticoagulated for A flutter with Xarelto In my opinion, the patient's obesity is at the center of her problems, She is essentially dying from obesity
[2017-02-10] MEDS: LEVOFLOXACIN / D5W 750 MG in PREMIXED IN D5W 150 ML IV SCH (12:44)
[2017-02-10] MEDS: ALBUT/IPRATROP 3MG/0.5MG NEB 3 ML VIAL INH SCH ×2 (15:10→18:56)
[2017-02-10] MEDS: RIVAROXABAN 20 MG TAB PO SCH (17:14)
--- NOTE | 2017-02-10 20:45 | Progress Note ---
Progress Note Date of Service February 10, 2017. Progress Note Patient admitted after midnight. She was seen and examined and I discussed the case with the office bookkeeper today. She was admitted with recurrent right pleural effusion which is transudative after her thoracentesis today for 700 ML' s. She is feeling less short of breath already after the tap. She was started on Levaquin for presumed pneumonia as per pulmonary. Discussed at length her obesity hypoventilation system and acute on chronic hypercarbic respiratory failure for which she consistently declines BiPAP treatment. She is aware of the risk of worsening hypercarbia and , but states that if it happens she is prepared to . I offered her a sleeping aid to help her wear the BiPAP mask at night and she also declines this. She also makes it very clear that she is a DO NOT RESUSCITATE/DO NOT INTUBATE, but she is amenable to a trial of BiPAP should she become obtunded. If BiPAP is not helping her or she becomes agitated with BiPAP, she would like to be made comfort measures only. Massively obese, sitting in chair Regular rate and rhythm, no murmurs gallops or rubs Decreased breath sounds throughout, no wheezes, breathing unlabored Abdomen massively obese, positive bowel sounds and nontender Extremities 3+ pitting edema with chronic venous stasis changes to the thigh bilaterally -Continue Levaquin for 7 day course -Follow pleural fluid cultures to assess for empyema although pH of the fluid is normal so this is not likely -Appreciate pulmonary recommendations -Changed CODE STATUS to DO NOT RESUSCITATE/DO NOT INTUBATE
[2017-02-10] MEDS: ATORVASTATIN 40 MG TAB PO SCH (21:08)
[2017-02-11] VITALS (11 sets, daily range): BP systolic 103–134; BP diastolic 51–70; PULSE 64–82; TEMP 36.4–36.6; O2SAT 91–100
[2017-02-11] MEDS: NITROGLYCERIN OINT 2% 1GM PACKET EXT SCH ×2 (05:20→11:00)
[2017-02-11] MEDS: LEVOTHYROXINE 50 MCG TAB PO SCH (06:15)
[2017-02-11 06:46] LABS: BASO % 0.4 %; BASO ABS # 0.03 K/uL (0-0.2); COMPLETE YES; EOS % 1.5 %; HEMATOCRIT 39.8 % (37-47); IG% 0.1 %; LYMPH % 15.3 %; MEAN CELL VOLUME 89.2 fL (80-100); MEAN CORPUSCULAR HEMOGLOBIN 26.9 pg (25-34); MEAN CORPUSCULAR HGB CONC 30.2 g/dl (32-36); MEAN PLATELET VOLUME 8.8 fL (7.4-10.4); MONO % 8.5 %; NEUT % 74.2 %; PLATELET COUNT 177 K/uL (130-400); RED BLOOD COUNT 4.46 M/uL (4.2-5.4); WHITE BLOOD COUNT 7.84 K/uL (4.8-10.8)
[2017-02-11] MEDS: INSULIN ASPART 100 UNITS/ML 3 ML PEN SC SCH ×4 (07:00→21:02)
[2017-02-11] MEDS: ALBUT/IPRATROP 3MG/0.5MG NEB 3 ML VIAL INH SCH ×4 (07:03→19:48)
[2017-02-11 07:27] LABS: BUN/CREATININE RATIO 20.5 (10-20); CALCIUM 8.9 mg/dl (8.5-10.1); CREATININE 1.5 mg/dl (0.60-1.20); MAGNESIUM 2.1 mg/dl (1.8-2.4); POTASSIUM 3.9 mmol/L (3.5-5.1)
[2017-02-11] MEDS: HYDROCORTISONE 1% CR 30 GM TUBE EXT SCH ×2 (08:30→20:57)
[2017-02-11] MEDS: TRIAMCINOLONE ACET 0.025% CR 15 GM TUBE EXT SCH ×2 (08:30→20:58)
[2017-02-11] MEDS: FLUTICASONE PROP HFA INH 44 MCG INHALER INH SCH ×2 (08:30→20:57)
[2017-02-11] MEDS: ALLOPURINOL 100 MG TAB PO SCH (08:30)
[2017-02-11] MEDS: METOPROLOL SUCC 50MG EXT REL TAB PO SCH (08:31)
[2017-02-11] MEDS: LISINOPRIL 10 MG TAB PO SCH (08:31)
[2017-02-11] MEDS: DOCUSATE SODIUM 100 MG CAP PO SCH ×2 (08:31→20:56)
[2017-02-11] MEDS: MAGNESIUM OXIDE 400 MG TAB PO SCH (08:31)
[2017-02-11] MEDS: CHOLECALCIFEROL 1000 INTER.UNIT TAB PO SCH (08:31)
--- NOTE | 2017-02-11 08:31 | Surgery Progress Note ---
Subjective Date of Service: February 11, 2017. Pt. notes breathing has improved since thoracentesis. Objective Vitals Date Time Temp Pulse Resp B/P Pulse Ox O2 Delivery O2 Flow Rate FiO2 02/11/17 07:50 36.6 70 20 123/64 99 Nasal Cannula 3.0 Humidified Oxygen 02/11/17 07:00 65 16 99 Nasal Cannula 3.0 02/11/17 04:41 36.4 64 18 125/70 100 Nasal Cannula 02/11/17 04:00 Nasal Cannula 3.0 Humidified Oxygen 02/11/17 00:00 Nasal Cannula 3.0 Humidified Oxygen 02/10/17 23:59 36.4 68 18 105/62 97 Nasal Cannula 3.0 02/10/17 20:00 Nasal Cannula 3.0 Humidified Oxygen 02/10/17 19:10 36.4 61 18 98/62 97 Nasal Cannula 3.0 Humidified Oxygen 02/10/17 18:57 62 16 96 Nasal Cannula 3.0 02/10/17 16:17 36.7 58 18 95/59 98 Nasal Cannula 3.0 Humidified Oxygen 02/10/17 16:00 Nasal Cannula 3.0 02/10/17 15:10 58 16 93 Nasal Cannula 3.0 02/10/17 12:00 Nasal Cannula 3.0 02/10/17 11:39 36.9 57 20 104/64 96 Nasal Cannula 3.0 Humidified Oxygen Physical Exam General: + well developed, + well nourished, No distress Pulmonary: + pertinent finding (BS slight decrease at righ base), No accessory muscle use, No respiratory distress Assessment & Plan 71 year old female s/p right thoracentesis -fluid cultures thus far (-) -will continue to follow culture results
[2017-02-11] MEDS: BUMETANIDE 1 MG TAB PO SCH (08:32)
[2017-02-11] MEDS: DILTIAZEM HCL 120 MG ER CAP PO SCH (08:32)
--- NOTE | 2017-02-11 10:09 | Pulmonology Progress Note ---
Pulmonary Progress Note Date of Service February 11, 2017. Attending Subjective Feeling better Does not want to use bipap uses 3L o2 at home Objective morbidly obese sitting in chair vitals reviewed : 99% o2 sats on 3L diueresed only 840 ml so far HEENT: normal Heart: s1,s2 Lungs : b/l basilar coarse crepts Abd: soft, non tender, BS =ve EXT: chronic lymphedema changes, 3+ edema COMMODITIES BROKER: AAOx4, no focal deficit All labs reviewed pleural fluid culture so far is negative Assessment & Plan (1) Congestive heart failure Assessment & Plan: continue bumex but also recommend to add iv lasix needs to be diueresed more (2) Pleural effusion Assessment & Plan: s/p thoracentesis no positive culture so far continue levaquin (3) Hypertension Nos Assessment & Plan: management as per attending at present under good control (4) Morbid obesity Assessment & Plan: counseled on weight loss (5) Hypoxia appears to be back to her baseline o2 requirement continue o2 3L nasal cannula prognosis guarded in view of morbid obesity and non compliance to NIV Data Medications: Current Inpatient Medications Medications (Trade) Dose Ordered Sig/Johnnie Route Start Time Stop Time Status Last Admin Dose Admin Acetaminophen (Tylenol Tab) 650 mg Q4H PRN PO 02/10/17 03:00 03/12/17 02:59 Al Hydrox/Mg Hydrox/Simethicone (Maalox Max Susp) 15 ml Q4H PRN PO 02/10/17 03:00 03/12/17 02:59 Magnesium Hydroxide (Milk Of Magnesia Susp) 30 ml Q12H PRN PO 02/10/17 03:00 03/12/17 02:59 Ondansetron HCl (Zofran Inj) 4 mg Q6H PRN IV 02/10/17 03:00 03/12/17 02:59 Nitroglycerin (Nitroglycerin 2% Oint) 1 inch Q6H EXT 02/10/17 05:00 03/12/17 04:59 02/11/17 05:20 1 INCH Polyethylene (Miralax Powder Packet) 17 gm DAILY PRN PO 02/10/17 03:00 03/12/17 02:59 Allopurinol (Zyloprim Tab) 100 mg DAILY PO 02/10/17 09:00 03/12/17 08:59 02/11/17 08:30 100 MG Alprazolam (Xanax Tab) 0.5 mg BID PRN PO 02/10/17 03:00 03/12/17 02:59 Arformoterol Tartrate (Brovana 15MCG/ 2ML Neb Soln) 15 mcg BIDR INH 02/10/17 08:00 03/12/17 07:59 Future Hold 02/10/17 07:44 15 MCG Atorvastatin Calcium (Lipitor Tab) 40 mg QPM PO 02/10/17 21:00 03/12/17 20:59 02/10/17 21:08 40 MG Bumetanide (Bumex Tab) 2 mg BID17 PO 02/10/17 09:00 03/12/17 08:59 02/11/17 08:32 2 MG Docusate Sodium (coLACE CAP) 100 mg BID PO 02/10/17 09:00 03/12/17 08:59 02/11/17 08:31 100 MG Fluticasone Propionate (Flovent Hfa 44MCG Inhaler) 1 puffs BID INH 02/10/17 09:00 03/12/17 08:59 02/11/17 08:30 1 PUFFS Hydrocortisone (Hydrocortisone 1% Crm) 1 appln BID EXT 02/10/17 09:00 03/12/17 08:59 02/11/17 08:30 1 APPLN Levothyroxine Sodium (Synthroid Tab) 50 mcg DAILYBB PO 02/10/17 06:00 03/12/17 05:59 02/11/17 06:15 50 MCG Lisinopril (Zestril Tab) 10 mg DAILY PO 02/10/17 09:00 03/12/17 08:59 02/11/17 08:31 10 MG Magnesium Oxide (Mag-Ox Tab) 400 mg DAILY PO 02/10/17 09:00 03/12/17 08:59 02/11/17 08:31 400 MG Metoprolol Succinate (Toprol Xl Tab) 100 mg DAILY PO 02/10/17 09:00 03/12/17 08:59 02/11/17 08:31 100 MG Cholecalciferol (Vitamin D Tab) 2,000 inter.unit DAILY PO 02/10/17 09:00 03/12/17 08:59 02/11/17 08:31 2,000 INTER.UNIT Diltiazem HCl (Dilacor Xr Cap) 240 mg QAM PO 02/10/17 09:00 03/12/17 08:59 02/11/17 08:32 240 MG Triamcinolone Acetonide (Kenalog 0.025% Crm) 1 appln BID EXT 02/10/17 09:00 03/12/17 08:59 02/11/17 08:30 1 APPLN Rivaroxaban (Xarelto Tab) 20 mg QDD PO 02/10/17 16:45 03/12/17 16:44 02/10/17 17:14 20 MG Insulin Aspart (novoLOG ASPART) SLIDING SCALE G... ACHS SC 02/10/17 07:00 03/12/17 06:59 02/10/17 21:17 2 UNITS Glucose (Glucose 40% Gel) 15-30 GRAMS 15 GRAMS... UD PRN PO 02/10/17 05:15 03/12/17 05:14 Glucose (Glucose Chew Tab) 4-8 Tablets 4 Tabl... UD PRN PO 02/10/17 05:15 03/12/17 05:14 Dextrose (Dextrose 50% 50ML Syringe) 25-50ML OF 50% DW IV FOR... UD PRN IV 02/10/17 05:15 03/12/17 05:14 Glucagon 1 mg 1 mg UD PRN SQ 02/10/17 05:15 03/12/17 05:14 Levofloxacin/Prmx (Levaquin / D5W/ Premixed D5W) 150 ml @ 100 mls/hr Q24H IV 02/10/17 13:00 02/17/17 12:59 02/10/17 12:44 100 MLS/HR Albuterol/ Ipratropium (Duoneb) 3 ml QIDR INH 02/10/17 16:00 03/12/17 15:59 02/11/17 07:03 3 ML I & O: 24-Hour Column 02/11/17 08:00 Intake Total 1760 ml Output Total 2200 ml Balance -440 ml Vital Signs: Date Time Temp Pulse Resp B/P Pulse Ox O2 Delivery O2 Flow Rate FiO2 02/11/17 07:50 36.6 70 20 123/64 99 Nasal Cannula 3.0 Humidified Oxygen 02/11/17 07:00 65 16 99 Nasal Cannula 3.0 02/11/17 04:41 36.4 64 18 125/70 100 Nasal Cannula 02/11/17 04:00 Nasal Cannula 3.0 Humidified Oxygen 02/11/17 00:00 Nasal Cannula 3.0 Humidified Oxygen 02/10/17 23:59 36.4 68 18 105/62 97 Nasal Cannula 3.0 02/10/17 20:00 Nasal Cannula 3.0 Humidified Oxygen 02/10/17 19:10 36.4 61 18 98/62 97 Nasal Cannula 3.0 Humidified Oxygen 02/10/17 18:57 62 16 96 Nasal Cannula 3.0 02/10/17 16:17 36.7 58 18 95/59 98 Nasal Cannula 3.0 Humidified Oxygen 02/10/17 16:00 Nasal Cannula 3.0 02/10/17 15:10 58 16 93 Nasal Cannula 3.0 02/10/17 12:00 Nasal Cannula 3.0 02/10/17 11:39 36.9 57 20 104/64 96 Nasal Cannula 3.0 Humidified Oxygen Laboratory Results: Last 24 Hours Test 02/10/17 10:49 02/10/17 11:37 02/10/17 16:15 02/10/17 20:14 Total Bilirubin 1.4 mg/dl Lactate Dehydrogenase 231 U/L Total Protein 8.0 gm/dl Albumin 3.6 gm/dl Procalcitonin 0.10 ng/ml Bedside Glucose 136 mg/dl 153 mg/dl 229 mg/dl Test 02/11/17 06:33 02/11/17 06:53 White Blood Count 7.84 K/uL Red Blood Count 4.46 M/uL Hemoglobin 12.0 g/dL Hematocrit 39.8 % Mean Corpuscular Volume 89.2 fL Mean Corpuscular Hemoglobin 26.9 pg Mean Corpuscular Hemoglobin Concent 30.2 g/dl Platelet Count 177 K/uL Mean Platelet Volume 8.8 fL Neutrophils (%) (Auto) 74.2 % Lymphocytes (%) (Auto) 15.3 % Monocytes (%) (Auto) 8.5 % Eosinophils (%) (Auto) 1.5 % Basophils (%) (Auto) 0.4 % Neutrophils # (Auto) 5.81 K/uL Lymphocytes # (Auto) 1.20 K/uL Monocytes # (Auto) 0.67 K/uL Eosinophils # (Auto) 0.12 K/uL Basophils # (Auto) 0.03 K/uL RDW Standard Deviation 56.2 fL RDW Coefficient of Variation 17.3 % Immature Granulocyte % (Auto) 0.1 % Immature Granulocyte # (Auto) 0.01 K/uL Sodium Level 137 mmol/L Potassium Level 3.9 mmol/L Chloride Level 91 mmol/L Carbon Dioxide Level 39 mmol/L Anion Gap 4.0 mmol/L Blood Urea Nitrogen 31 mg/dl Creatinine 1.50 mg/dl Est Creatinine Clear Calc Drug Dose 46.9 ml/min Estimated GFR () 39.9 Estimated GFR (Non- 34.4 BUN/Creatinine Ratio 20.5 Random Glucose 170 mg/dl Calcium Level 8.9 mg/dl Magnesium Level 2.1 mg/dl Bedside Glucose 147 mg/dl
[2017-02-11] MEDS: LEVOFLOXACIN / D5W 750 MG in PREMIXED IN D5W 150 ML IV SCH (13:12)
--- NOTE | 2017-02-11 15:37 | Progress Note ---
Subjective Date of Service: February 11, 2017. Subjective pt is tearful at times, states she is extremely frustrated, feels she cannot do anything that she wants to do, is still refusing bipap, has questions about her skin cancer on forehead, and generally just displeased about being sick. she has no chest pain, feels her body is swollen or tight with fluid, states that her home scale does not acurately predict her fluid retention, she has no bowel issue but requests a montesinos to avoid skin breakdown because increased diuresis promotes incontinence and skin irritation. Problem List Medical Problems: (1) Abdominal pain, epigastric Status: Acute (2) Acute bronchitis Status: Acute (3) Bleeding Status: Acute (4) Congestive heart failure Status: Acute (5) Failure of outpatient treatment Status: Acute (6) Generalized weakness Status: Acute (7) Pneumonia Status: Acute (8) Pneumonia Status: Acute (9) Sinusitis Status: Acute (10) SOB (shortness of breath) Status: Acute Review of Systems Constitutional: + weakness, No chills, No fever Respiratory: + dyspnea on exertion, + shortness of breath, No cough Cardiac: + PND, + edema, + orthopnea, No chest pain Abdomen: No diarrhea, No nausea, No pain, No vomiting Musculoskeletal: + muscle pain, + swelling Female : + incontinence, + urinary frequency, No dysuria, No hematuria Neurologic: No memory loss, No paralysis Psychiatric: + anxiety, + depression symptoms Objective Vital Signs Date Time Temp Pulse Resp B/P Pulse Ox O2 Delivery O2 Flow Rate FiO2 02/11/17 07:50 70 20 123/64 99 Nasal Cannula 3.0 Humidified Oxygen 02/11/17 07:00 65 16 99 Nasal Cannula 3.0 02/11/17 04:41 36.4 64 18 125/70 100 Nasal Cannula 02/11/17 04:00 Nasal Cannula 3.0 Humidified Oxygen 02/11/17 00:00 Nasal Cannula 3.0 Humidified Oxygen 02/10/17 23:59 36.4 68 18 105/62 97 Nasal Cannula 3.0 02/10/17 20:00 Nasal Cannula 3.0 Humidified Oxygen 02/10/17 19:10 36.4 61 18 98/62 97 Nasal Cannula 3.0 Humidified Oxygen 02/10/17 18:57 62 16 96 Nasal Cannula 3.0 5/28/17 16:17 36.7 58 18 95/59 98 Nasal Cannula 3.0 Humidified Oxygen 02/10/17 16:00 Nasal Cannula 3.0 02/10/17 15:10 58 16 93 Nasal Cannula 3.0 02/10/17 12:00 Nasal Cannula 3.0 02/10/17 11:39 36.9 57 20 104/64 96 Nasal Cannula 3.0 Humidified Oxygen 02/10/17 08:00 Nasal Cannula 3.0 Physical Exam General Appearance: + moderate distress, + obese Eyes: PERRL, EOMI Neck: supple, + JVD Respiratory/Chest: chest non-tender, + decreased breath sounds, + accessory muscle use Cardiovascular: regular rate, rhythm, + systolic murmur Abdomen: normal bowel sounds, non tender, soft Extremities: normal capillary refill, + pedal edema Neurologic/Psychiatric: alert, oriented x 3 Skin: + pertinent finding (changes of chronic venous stasis) Laboratory Results Last 24 Hours Test 02/10/17 10:49 02/10/17 11:37 02/10/17 16:15 02/10/17 20:14 Total Bilirubin 1.4 mg/dl Lactate Dehydrogenase 231 U/L Total Protein 8.0 gm/dl Albumin 3.6 gm/dl Procalcitonin 0.10 ng/ml Bedside Glucose 136 mg/dl 153 mg/dl 229 mg/dl Test 02/11/17 06:33 02/11/17 06:53 White Blood Count 7.84 K/uL Red Blood Count 4.46 M/uL Hemoglobin 12.0 g/dL Hematocrit 39.8 % Mean Corpuscular Volume 89.2 fL Mean Corpuscular Hemoglobin 26.9 pg Mean Corpuscular Hemoglobin Concent 30.2 g/dl Platelet Count 177 K/uL Mean Platelet Volume 8.8 fL Neutrophils (%) (Auto) 74.2 % Lymphocytes (%) (Auto) 15.3 % Monocytes (%) (Auto) 8.5 % Eosinophils (%) (Auto) 1.5 % Basophils (%) (Auto) 0.4 % Neutrophils # (Auto) 5.81 K/uL Lymphocytes # (Auto) 1.20 K/uL Monocytes # (Auto) 0.67 K/uL Eosinophils # (Auto) 0.12 K/uL Basophils # (Auto) 0.03 K/uL RDW Standard Deviation 56.2 fL RDW Coefficient of Variation 17.3 % Immature Granulocyte % (Auto) 0.1 % Immature Granulocyte # (Auto) 0.01 K/uL Sodium Level 137 mmol/L Potassium Level 3.9 mmol/L Chloride Level 91 mmol/L Carbon Dioxide Level 39 mmol/L Anion Gap 4.0 mmol/L Blood Urea Nitrogen 31 mg/dl Creatinine 1.50 mg/dl Est Creatinine Clear Calc Drug Dose 46.9 ml/min Estimated GFR () 39.9 Estimated GFR (Non- 34.4 BUN/Creatinine Ratio 20.5 Random Glucose 170 mg/dl Calcium Level 8.9 mg/dl Magnesium Level 2.1 mg/dl Bedside Glucose 147 mg/dl Assessment and Plan 71 y/o F Hx diastolic CHF, morbid obesity, DM, PAF, recurrent pleural effusions , chronic hypercarbic respiratory failure. . A CXR had showbn reaccumulation of her effusion, which was removed and is consistent with transudative effusion. She is dependent on continuous home 02 at 3L Acute on chornic diastolic HF - pleural effusion - will attempt 23 hours of lasix gtt with postassium augmentation S/P Thoracentesis Chronic Hypoxic respiratory failure, She is chronically hyopercarbic likely due to obesity hypoventilation. We will cont an 02 protocol and cont her inhalers as prescribed. DM - SSI seems stable PAF - in sinus rhythm - cont Xarelto and a B markos Obesity - this is the pts central issue in which case diet and exercise however minimal may be the only effective long-term modality Dvt prevention Afsaneh discussed her Basal cell carcinoma on forehead and possibility of removal I spent extended time with patient today, a total of 45 minutes face to face time with her and her as she expressed frustration and possibility of hospice care
[2017-02-11] MEDS: RIVAROXABAN 20 MG TAB PO SCH (16:24)
[2017-02-11] MEDS: FUROSEMIDE INJ 100 MG in DEXTROSE 5% 100ML 90 ML IV SCH (16:25)
[2017-02-11] MEDS: ATORVASTATIN 40 MG TAB PO SCH (20:56)
[2017-02-11] MEDS: POTASSIUM CHLORIDE 20 MEQ TABCR PO SCH (20:56)
[2017-02-11] MEDS: ALPRAZOLAM 0.5 MG TAB PO PRN (22:00)
[2017-02-12] VITALS (12 sets, daily range): BP systolic 96–156; BP diastolic 46–74; PULSE 62–76; TEMP 36.3–36.7; O2SAT 94–98
[2017-02-12] MEDS: FUROSEMIDE INJ 100 MG in DEXTROSE 5% 100ML 90 ML IV SCH ×2 (01:07→10:24)
[2017-02-12] MEDS: LEVOTHYROXINE 50 MCG TAB PO SCH (06:07)
[2017-02-12] MEDS: INSULIN ASPART 100 UNITS/ML 3 ML PEN SC SCH ×4 (07:00→21:35)
[2017-02-12] MEDS: ALBUT/IPRATROP 3MG/0.5MG NEB 3 ML VIAL INH SCH ×4 (07:07→19:13)
--- NOTE | 2017-02-12 07:09 | SURGICAL CONSULTATION ---
DATE OF CONSULTATION: 02/10/2017 REASON FOR CONSULTATION: Recurrent right pleural effusion. HISTORY OF PRESENT ILLNESS: This is a 71-year-old morbidly obese female (5' 2", 320 pounds) who I first met back in November of this year. Almost 3 months ago, she was admitted with respiratory insufficiency and I performed a right thoracentesis under ultrasound guidance for approximately 850 mL of fluid. This was done on 11/16/2016. The fluid at that time had a LDH of 129 with glucose of 135. Her LDH at that time was 173 and this did not meet the criteria for an exudate. The fluid was benign and we did grow out some coag negative staph; however, at that time, I simply did not feel we were dealing with an empyema given our findings on her labs. I thought this may have been contamination. The patient actually had done surprisingly well until about a week ago when she started developing increasing shortness of breath. She stated that she became quite short of breath on walking back from the bathroom. It is very difficult for her to walk due to her morbid obesity. She denied fevers or productive cough, but she did have shaking chills. She is on home O2. I was asked to comment on the right pleural effusion which appears to have reaccumulated. PAST MEDICAL HISTORY: 1. Morbid obesity. 2. Paroxysmal atrial fibrillation. 3. Episodes of congestive heart failure. 4. Recurrent right pleural effusion. 5. Adult onset diabetes mellitus. 6. Hypothyroidism. 7. Hypertension. 8. Endometrial cancer. 9. Lumbosacral degenerative disease. 10. Apparent basal cell carcinoma. 11. Chronic venous insufficiency changes in legs. PAST SURGICAL HISTORY: 1. Lumbosacral discectomy. 2. Biopsy of left forehead lesion by Dr. Harden. 3. Status post right thoracentesis. MEDICATIONS: 1. Allopurinol. 2. Oxygen. 3. Metoprolol. 4. Brovana. 5. Synthroid. 6. Lisinopril. 7. Magnesium oxide. 8. Bumetanide. 9. Lipitor. 10. Diltiazem. 11. Flovent. 12. Hydrocortisone lotion. 13. Colace. 14. Insulin. 15. Triamcinolone cream. 16. Xanax. 17. Vaniqa. ALLERGIES: 1. PENICILLIN. 2. METRONIDAZOLE. SOCIAL HISTORY: The patient lives with her , who is very very devoted. The patient has never smoked. She is retired. She has never used drugs or alcohol. She is not independent for activities of daily living. She needs quite a bit of help. REVIEW OF SYSTEMS: The patient states she developed some chills, some acute shortness of breath over the last week, but up to that point states she has been "doing pretty good." She denied any skin breakdown. She has chronic venous stasis changes of her lower legs. She denies any visual or auditory symptoms. She denied nausea or vomiting. She did have chills, but no fevers. She had no productive cough or epistaxis. She denied any abdominal pain, chest pain or palpitations. She complained of some lumbosacral pain with radiation around both her hips and proximal thighs, but this has improved. PHYSICAL EXAMINATION: GENERAL: 5 feet 2 inch, 317 pounds, white female who is awake, alert and oriented. She is wearing oxygen. HEENT: Her sclerae are pale, but anicteric. Pupils are equal, and round. She has no nasolabial flattening. Teeth are actually in fairly good repair. NECK: Very thick. I am unable to palpate any abnormalities. She has no carotid bruits. She has no lymphadenopathy. RESPIRATORY: Her chest is huge, but I mean is very large. She does have decreased breath sounds on the right side. She has no overt wheezing. HEART: She has an irregularly irregular rhythm of her heart with distant heart sounds. ABDOMEN: Simply huge and I am unable to palpate any abnormalities. EXTREMITIES: She has 2+ edema of the lower extremities with hemosiderin deposition and lipodermatosclerosis. Her nailbeds are mildly cyanotic. NEUROLOGIC: She has no obvious neurologic focal deficits and cranial nerves II-XII are intact. DATA: I reviewed a chest x-ray and she does have reaccumulation of her pleural effusion on the right. Her white count is 13,010 with a bit of a left shift. A review of her chemistries revealed carbon dioxide of 42, BUN and creatinine were 24 and 1.10. Glucose 196. ASSESSMENT AND PLAN: 1. Reaccumulation of right pleural effusion. It has been taken almost 3 months for this to reaccumulate and I have been pleased with that as she has done well clinically; however, I am very concerned about her chills. We are concerned about her white count even though it is only 13,000. I think it is also important to note that we did grow out a strep organism from her fluid last time, but I did not feel this was true given her other lab findings. At this point, we will perform a thoracentesis both for therapy and for diagnosis. We had discussed this in detail with the patient and her .
--- NOTE | 2017-02-12 07:12 | OPERATIVE REPORT ---
DATE OF OPERATION: 02/10/2017 PREOPERATIVE DIAGNOSIS: Reaccumulation of right pleural effusion. POSTOPERATIVE DIAGNOSIS: Same. PROCEDURE: Right thoracentesis under ultrasound guidance. SURGEON: Dr. Herman. CORONER TRANSPORT TECHNICIAN: Dr. Rigo Webster. ANESTHESIA: Local. SPECIFICS OF THE PROCEDURE: This is a morbidly obese 71-year-old female that I know having performed a thoracentesis back on 11/16/2016. She came in with chills, but also had increasing shortness of breath over the last week with a mild elevation of her white count. At this point, I felt that a therapeutic and diagnostic thoracentesis will be helpful. The patient and her were quite familiar with this as I have performed one in the past. At the patient's bedside, she was sitting up. Using an ultrasound, I found a good window for accessing the pleural cavity. It should be marked that this patient is 5 feet 2 inches, 317 pounds. The patient was prepped and draped in usual sterile fashion. After appropriate timeout had been called, a skin wheal was used 25-gauge needle, 1% Xylocaine to raise a skin wheal. This was the area we had marked with ultrasound. I then went above the rib and anesthetized in it. I had to use the entire hub of the needle before we got fluid. This is a serous fluid. I placed a wire through the needle and the needle removed. Introducer sheath was then used to dilate this up slightly and then removed and then a 17-cm triple lumen catheter was slid over the guidewire and the guidewire was removed. I then drained fluid out and sent some for pH, which was 7.52. I drained about 750 mL and we sent this off to the lab. She had some reexpansion pain. I removed it. I did place a stitch as she had some bleeding from the skin and the patient is on Xarelto. She tolerated it quite well. Chest x-ray is pending at this time. I attest to the content of the Intraoperative Record and any orders documented therein. Any exceptio ns are noted below.
[2017-02-12 07:49] LABS: BLOOD UREA NITROGEN 30 mg/dl (7-18); BUN/CREATININE RATIO 21.7 (10-20); CARBON DIOXIDE 40 mmol/L (21-32); CHLORIDE 93 mmol/L (98-107); GLUCOSE 203 mg/dl (70-99); SODIUM 137 mmol/L (136-145)
[2017-02-12] MEDS: TRIAMCINOLONE ACET 0.025% CR 15 GM TUBE EXT SCH ×2 (08:29→21:29)
[2017-02-12] MEDS: HYDROCORTISONE 1% CR 30 GM TUBE EXT SCH ×2 (08:29→21:30)
[2017-02-12] MEDS: DILTIAZEM HCL 120 MG ER CAP PO SCH (09:02)
[2017-02-12] MEDS: FLUTICASONE PROP HFA INH 44 MCG INHALER INH SCH ×2 (09:02→21:29)
[2017-02-12] MEDS: MAGNESIUM OXIDE 400 MG TAB PO SCH (09:02)
[2017-02-12] MEDS: METOPROLOL SUCC 50MG EXT REL TAB PO SCH (09:02)
[2017-02-12] MEDS: CHOLECALCIFEROL 1000 INTER.UNIT TAB PO SCH (09:03)
[2017-02-12] MEDS: DOCUSATE SODIUM 100 MG CAP PO SCH ×2 (09:03→21:29)
[2017-02-12] MEDS: ALLOPURINOL 100 MG TAB PO SCH (09:03)
[2017-02-12] MEDS: POTASSIUM CHLORIDE 20 MEQ TABCR PO SCH ×2 (09:03→21:30)
[2017-02-12] MEDS: LISINOPRIL 10 MG TAB PO SCH (09:03)
--- NOTE | 2017-02-12 11:14 | SURGERY PROGRESS NOTE ---
DATE: 02/12/2017 DATE: 02/12/2017. Ms. Arellano is seen today on 02/12/2017, 48 hours after I did a thoracentesis. She feels much better. The fluid which was drained is a transudate with a normal pH. She is not growing any organisms out thus far. She has been afebrile. Her x-ray looked better. At this point, I would not do anything further. She has done well from this perspective. She is a morbidly obese patient who has marked CO2 retention. At this point, I would simply follow her with serial x-rays. I am encouraged by the fact that it was almost 3 months since her last thoracentesis.
--- NOTE | 2017-02-12 11:34 | Pulmonology Progress Note ---
Pulmonary Progress Note Date of Service February 12, 2017. 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 All labs reviewed pleural fluid culture so far is negative urine growing MSSA Assessment & Plan (1) Congestive heart failure Assessment & Plan: patient's BP runnning low, recommend to decrease the drip rate (2) Pleural effusion Assessment & Plan: s/p thoracentesis no positive culture so far continue levaquin s/p thoracentesis no positive culture so far continue levaquin urine culture +ve for MSSA continue levaquin but cipro is better quinolone for UTI (3) Hypertension Nos (4) Morbid obesity Assessment & Plan: counseled on weight loss (5) Hypoxia appears to be back to her baseline o2 requirement continue o2 3L nasal cannula prognosis guarded in view of morbid obesity and non compliance to NIV Data Medications: Current Inpatient Medications Medications (Trade) Dose Ordered Sig/Johnnie Route Start Time Stop Time Status Last Admin Dose Admin Acetaminophen (Tylenol Tab) 650 mg Q4H PRN PO 02/10/17 03:00 03/12/17 02:59 Al Hydrox/Mg Hydrox/Simethicone (Maalox Max Susp) 15 ml Q4H PRN PO 02/10/17 03:00 03/12/17 02:59 Magnesium Hydroxide (Milk Of Magnesia Susp) 30 ml Q12H PRN PO 02/10/17 03:00 03/12/17 02:59 Ondansetron HCl (Zofran Inj) 4 mg Q6H PRN IV 02/10/17 03:00 03/12/17 02:59 Polyethylene (Miralax Powder Packet) 17 gm DAILY PRN PO 02/10/17 03:00 03/12/17 02:59 Allopurinol (Zyloprim Tab) 100 mg DAILY PO 02/10/17 09:00 03/12/17 08:59 02/12/17 09:03 100 MG Alprazolam (Xanax Tab) 0.5 mg BID PRN PO 02/10/17 03:00 03/12/17 02:59 02/11/17 22:00 0.5 MG Arformoterol Tartrate (Brovana 15MCG/ 2ML Neb Soln) 15 mcg BIDR INH 02/10/17 08:00 03/12/17 07:59 Future Hold 02/10/17 07:44 15 MCG Atorvastatin Calcium (Lipitor Tab) 40 mg QPM PO 02/10/17 21:00 03/12/17 20:59 02/11/17 20:56 40 MG Docusate Sodium (coLACE CAP) 100 mg BID PO 02/10/17 09:00 03/12/17 08:59 02/12/17 09:03 100 MG Fluticasone Propionate (Flovent Hfa 44MCG Inhaler) 1 puffs BID INH 02/10/17 09:00 03/12/17 08:59 02/12/17 09:02 1 PUFFS Hydrocortisone (Hydrocortisone 1% Crm) 1 appln BID EXT 02/10/17 09:00 03/12/17 08:59 02/11/17 20:57 1 APPLN Levothyroxine Sodium (Synthroid Tab) 50 mcg DAILYBB PO 02/10/17 06:00 03/12/17 05:59 02/12/17 06:07 50 MCG Lisinopril (Zestril Tab) 10 mg DAILY PO 02/10/17 09:00 03/12/17 08:59 02/12/17 09:03 10 MG Magnesium Oxide (Mag-Ox Tab) 400 mg DAILY PO 02/10/17 09:00 03/12/17 08:59 02/12/17 09:02 400 MG Metoprolol Succinate (Toprol Xl Tab) 100 mg DAILY PO 02/10/17 09:00 03/12/17 08:59 02/12/17 09:02 100 MG Cholecalciferol (Vitamin D Tab) 2,000 inter.unit DAILY PO 02/10/17 09:00 03/12/17 08:59 02/12/17 09:03 2,000 INTER.UNIT Diltiazem HCl (Dilacor Xr Cap) 240 mg QAM PO 02/10/17 09:00 03/12/17 08:59 02/12/17 09:02 240 MG Triamcinolone Acetonide (Kenalog 0.025% Crm) 1 appln BID EXT 02/10/17 09:00 03/12/17 08:59 02/11/17 20:58 1 APPLN Rivaroxaban (Xarelto Tab) 20 mg QDD PO 02/10/17 16:45 03/12/17 16:44 02/11/17 16:24 20 MG Insulin Aspart (novoLOG ASPART) SLIDING SCALE G... ACHS SC 02/10/17 07:00 03/12/17 06:59 02/11/17 21:02 2 UNITS Glucose (Glucose 40% Gel) 15-30 GRAMS 15 GRAMS... UD PRN PO 02/10/17 05:15 03/12/17 05:14 Glucose (Glucose Chew Tab) 4-8 Tablets 4 Tabl... UD PRN PO 02/10/17 05:15 03/12/17 05:14 Dextrose (Dextrose 50% 50ML Syringe) 25-50ML OF 50% DW IV FOR... UD PRN IV 02/10/17 05:15 03/12/17 05:14 Glucagon 1 mg 1 mg UD PRN SQ 02/10/17 05:15 03/12/17 05:14 Levofloxacin/Prmx (Levaquin / D5W/ Premixed D5W) 150 ml @ 100 mls/hr Q24H IV 02/10/17 13:00 02/17/17 12:59 02/11/17 13:12 100 MLS/HR Albuterol/ Ipratropium 3 ml 3 ml QIDR INH 02/10/17 16:00 03/12/17 15:59 02/12/17 07:07 3 ML Furosemide/ Dextrose (Lasix Inj/D5 100ml) 100 ml @ 10 mls/hr Q10H IV 02/11/17 15:45 02/12/17 14:29 02/12/17 10:24 10 MLS/HR Potassium Chloride (Klor-Con Tab) 20 meq BID PO 02/11/17 21:00 03/13/17 20:59 02/12/17 09:03 20 MEQ I & O: 24-Hour Column 02/12/17 08:00 Intake Total 1536 ml Output Total 3450 ml Balance -1914 ml Vital Signs: Date Time Temp Pulse Resp B/P Pulse Ox O2 Delivery O2 Flow Rate FiO2 02/12/17 11:04 36.4 63 16 101/56 98 3.0 02/12/17 08:00 Nasal Cannula 3.0 02/12/17 07:30 36.3 63 18 96/46 98 3.0 02/12/17 07:08 63 16 94 Nasal Cannula 3.0 02/12/17 04:00 Nasal Cannula 3.0 Humidified Oxygen 02/12/17 03:16 36.4 64 18 103/56 98 Nasal Cannula 3.0 02/12/17 00:16 36.5 71 18 148/72 98 Nasal Cannula 3.0 02/12/17 00:00 Nasal Cannula 3.0 Humidified Oxygen 02/11/17 20:00 Nasal Cannula 3.0 Humidified Oxygen 02/11/17 19:51 36.4 65 22 133/51 95 Nasal Cannula 3.0 02/11/17 19:48 66 16 91 Nasal Cannula 3.0 02/11/17 15:33 94 Nasal Cannula 3.0 02/11/17 15:29 82 16 96 Nasal Cannula 3.0 02/11/17 15:24 36.5 66 22 134/68 94 Nasal Cannula 3.0 02/11/17 12:10 91 Nasal Cannula 3.0 Laboratory Results: Last 24 Hours Test 02/11/17 16:08 02/11/17 20:06 02/12/17 06:55 02/12/17 07:34 Bedside Glucose 250 mg/dl 233 mg/dl 206 mg/dl Sodium Level 137 mmol/L Potassium Level mmol/L Chloride Level 93 mmol/L Carbon Dioxide Level 40 mmol/L Anion Gap 4.0 mmol/L Blood Urea Nitrogen 30 mg/dl Creatinine 1.40 mg/dl Est Creatinine Clear Calc Drug Dose 49.6 ml/min Estimated GFR () 43.4 Estimated GFR (Non- 37.4 BUN/Creatinine Ratio 21.7 Random Glucose 203 mg/dl Calcium Level 9.0 mg/dl Test 02/12/17 08:20 02/12/17 11:13 Potassium Level 3.7 mmol/L Bedside Glucose 208 mg/dl
[2017-02-12] MEDS: LEVOFLOXACIN / D5W 750 MG in PREMIXED IN D5W 150 ML IV SCH (13:00)
--- NOTE | 2017-02-12 16:07 | Progress Note ---
Subjective Date of Service: February 12, 2017. Subjective pt states she feels much better having gotten some sleep and having good diuresis, less leg tightness and less depressive thoughts, less leg pain, still feels legs are more swollen that usual, no chest pain and still CELAYA and some orthopnea Problem List Medical Problems: (1) Abdominal pain, epigastric Status: Acute (2) Acute bronchitis Status: Acute (3) Bleeding Status: Acute (4) Congestive heart failure Status: Chronic (5) Failure of outpatient treatment Status: Acute (6) Generalized weakness Status: Acute (7) Pneumonia Status: Acute (8) Pneumonia Status: Acute (9) Sinusitis Status: Acute (10) SOB (shortness of breath) Status: Acute Review of Systems Constitutional: No chills, No fever, No weakness Respiratory: + dyspnea at rest, + dyspnea on exertion, + shortness of breath, No cough Cardiac: + edema, + orthopnea, No PND, No chest pain Abdomen: No diarrhea, No nausea, No pain, No vomiting Female : No dysuria, No hematuria, No urinary frequency Neurologic: No memory loss, No paralysis Psychiatric: No anhedonism, No anxiety, No depression symptoms Endo: No excessive thirst, No fatigue Objective Vital Signs Date Time Temp Pulse Resp B/P Pulse Ox O2 Delivery O2 Flow Rate FiO2 02/12/17 15:40 36.4 62 20 115/62 96 Room Air 3.0 02/12/17 15:03 62 16 96 Nasal Cannula 3.0 02/12/17 11:55 98 Nasal Cannula 3.0 02/12/17 11:32 76 16 94 Nasal Cannula 3.0 02/12/17 11:04 36.4 63 16 101/56 98 3.0 02/12/17 08:00 Nasal Cannula 3.0 02/12/17 07:30 36.3 63 18 96/46 98 3.0 02/12/17 07:08 63 16 94 Nasal Cannula 3.0 02/12/17 04:00 Nasal Cannula 3.0 Humidified Oxygen 02/12/17 03:16 36.4 64 18 103/56 98 Nasal Cannula 3.0 02/12/17 00:16 36.5 71 18 148/72 98 Nasal Cannula 3.0 02/12/17 00:00 Nasal Cannula 3.0 Humidified Oxygen 02/11/17 20:00 Nasal Cannula 3.0 Humidified Oxygen 02/11/17 19:51 36.4 65 22 133/51 95 Nasal Cannula 3.0 02/11/17 19:48 66 16 91 Nasal Cannula 3.0 Physical Exam General Appearance: WD/WN, no apparent distress Eyes: PERRL, EOMI Neck: supple, no JVD Respiratory/Chest: chest non-tender, lungs clear Laboratory Results Last 24 Hours Test 02/11/17 16:08 02/11/17 20:06 02/12/17 06:55 02/12/17 07:34 Bedside Glucose 250 mg/dl 233 mg/dl 206 mg/dl Sodium Level 137 mmol/L Potassium Level mmol/L Chloride Level 93 mmol/L Carbon Dioxide Level 40 mmol/L Anion Gap 4.0 mmol/L Blood Urea Nitrogen 30 mg/dl Creatinine 1.40 mg/dl Est Creatinine Clear Calc Drug Dose 49.6 ml/min Estimated GFR () 43.4 Estimated GFR (Non- 37.4 BUN/Creatinine Ratio 21.7 Random Glucose 203 mg/dl Calcium Level 9.0 mg/dl Test 02/12/17 08:20 02/12/17 11:13 Potassium Level 3.7 mmol/L Bedside Glucose 208 mg/dl Assessment and Plan 71 y/o F Hx diastolic CHF, morbid obesity, DM, PAF, recurrent pleural effusions , chronic hypercarbic respiratory failure. . A CXR had shown reaccumulation of her effusion, which was removed and is consistent with transudative effusion. She is dependent on continuous home 02 at 3L Acute on chronic diastolic HF - pleural effusion -good results with lasix gtt with potassium augmentation, will survey renal function and if stable continue gtt for another day S/P Thoracentesis PAF - in sinus rhythm - cont Xarelto and a B markos plus diltiazem, both may treat diastolic dysfunction but wonder if dilt is contributing to peripheral edema, will continue to diurese but ask Dr Olivares to commend if dilt is needed or b markos alone or b markos + dig, consider repeat echo also Chronic Hypoxic respiratory failure, She is chronically hypercarbic likely due to obesity hypoventilation. We will cont an 02 protocol and cont her inhalers as prescribed. DM - poor control adjusted ssi adding carb coverage and consider basal amount since takes 75/25 as an outpt Dvt prevention Afsaneh discussed her Basal cell carcinoma on forehead and possibility of removal. will encourage outpt evaluaiton
[2017-02-12] MEDS: RIVAROXABAN 20 MG TAB PO SCH (17:56)
[2017-02-12] MEDS: ATORVASTATIN 40 MG TAB PO SCH (21:29)
[2017-02-13] VITALS (12 sets, daily range): BP systolic 106–134; BP diastolic 64–77; PULSE 59–77; TEMP 36.2–36.8; O2SAT 93–100
[2017-02-13] MEDS: LEVOTHYROXINE 50 MCG TAB PO SCH (05:30)
[2017-02-13 07:00] LABS: CALCIUM 8.9 mg/dl (8.5-10.1); CREATININE 1.3 mg/dl (0.60-1.20); POTASSIUM 3.8 mmol/L (3.5-5.1)
[2017-02-13] MEDS: ALBUT/IPRATROP 3MG/0.5MG NEB 3 ML VIAL INH SCH ×4 (07:11→19:03)
[2017-02-13] MEDS: INSULIN ASPART 100 UNITS/ML 3 ML PEN SC SCH ×4 (07:33→21:19)
[2017-02-13] MEDS: FUROSEMIDE INJ 100 MG in DEXTROSE 5% 100ML 90 ML IV SCH ×2 (08:33→18:15)
[2017-02-13] MEDS: FLUTICASONE PROP HFA INH 44 MCG INHALER INH SCH ×2 (08:37→20:56)
[2017-02-13] MEDS: HYDROCORTISONE 1% CR 30 GM TUBE EXT SCH ×2 (09:00→20:50)
[2017-02-13] MEDS: TRIAMCINOLONE ACET 0.025% CR 15 GM TUBE EXT SCH ×2 (09:00→20:50)
[2017-02-13] MEDS: POTASSIUM CHLORIDE 20 MEQ TABCR PO SCH ×2 (10:05→20:56)
[2017-02-13] MEDS: DOCUSATE SODIUM 100 MG CAP PO SCH ×2 (10:05→20:56)
[2017-02-13] MEDS: METOPROLOL SUCC 50MG EXT REL TAB PO SCH (10:05)
[2017-02-13] MEDS: ALLOPURINOL 100 MG TAB PO SCH (10:05)
[2017-02-13] MEDS: CHOLECALCIFEROL 1000 INTER.UNIT TAB PO SCH (10:06)
[2017-02-13] MEDS: DILTIAZEM HCL 120 MG ER CAP PO SCH (10:06)
[2017-02-13] MEDS: LISINOPRIL 10 MG TAB PO SCH (10:06)
[2017-02-13] MEDS: MAGNESIUM OXIDE 400 MG TAB PO SCH (10:06)
--- NOTE | 2017-02-13 11:16 | Pulmonology Progress Note ---
Pulmonary Progress Note Date of Service February 13, 2017. Attending Subjective No new complaints Lying in bed On lasix drip 10mg/hr Diueresed around 3-4 L so far No improvement in symptoms Objective morbidly obese sitting in chair vitals reviewed : 99% o2 sats on 3L I&O -ve 1.5 L HEENT: normal Heart: s1,s2 Lungs : b/l basilar coarse crepts Abd: soft, non tender, BS +ve EXT: chronic lymphedema changes, 4+ edema [employer]: AAOx4, no focal deficit All labs reviewed pleural fluid culture so far is negative urine growing MSSA Assessment & Plan (1) Congestive heart failure Assessment & Plan: continue lasix drip patient hemodynamically stable with no evidence of worsening renal function (2) Pleural effusion Assessment & Plan: s/p thoracentesis no positive culture so far continue levaquin s/p thoracentesis no positive culture so far continue levaquin urine culture +ve for MSSA continue levaquin but cipro is better quinolone for UTI (3) Hypertension Nos (4) Morbid obesity (5) Hypoxia appears to be back to her baseline o2 requirement continue o2 3L nasal cannula prognosis guarded in view of morbid obesity and non compliance to NIV Data Medications: Current Inpatient Medications Medications (Trade) Dose Ordered Sig/Johnnie Route Start Time Stop Time Status Last Admin Dose Admin Acetaminophen (Tylenol Tab) 650 mg Q4H PRN PO 02/10/17 03:00 03/12/17 02:59 Al Hydrox/Mg Hydrox/Simethicone (Maalox Max Susp) 15 ml Q4H PRN PO 02/10/17 03:00 03/12/17 02:59 Magnesium Hydroxide (Milk Of Magnesia Susp) 30 ml Q12H PRN PO 02/10/17 03:00 03/12/17 02:59 Ondansetron HCl (Zofran Inj) 4 mg Q6H PRN IV 02/10/17 03:00 03/12/17 02:59 Polyethylene (Miralax Powder Packet) 17 gm DAILY PRN PO 02/10/17 03:00 03/12/17 02:59 Allopurinol (Zyloprim Tab) 100 mg DAILY PO 02/10/17 09:00 03/12/17 08:59 02/13/17 10:05 100 MG Alprazolam (Xanax Tab) 0.5 mg BID PRN PO 02/10/17 03:00 03/12/17 02:59 02/11/17 22:00 0.5 MG Arformoterol Tartrate (Brovana 15MCG/ 2ML Neb Soln) 15 mcg BIDR INH 02/10/17 08:00 03/12/17 07:59 Future Hold 02/10/17 07:44 15 MCG Atorvastatin Calcium (Lipitor Tab) 40 mg QPM PO 02/10/17 21:00 03/12/17 20:59 02/12/17 21:29 40 MG Docusate Sodium (coLACE CAP) 100 mg BID PO 02/10/17 09:00 03/12/17 08:59 02/13/17 10:05 100 MG Fluticasone Propionate (Flovent Hfa 44MCG Inhaler) 1 puffs BID INH 02/10/17 09:00 03/12/17 08:59 02/13/17 08:37 1 PUFFS Hydrocortisone (Hydrocortisone 1% Crm) 1 appln BID EXT 02/10/17 09:00 03/12/17 08:59 02/12/17 21:30 1 APPLN Levothyroxine Sodium (Synthroid Tab) 50 mcg DAILYBB PO 02/10/17 06:00 03/12/17 05:59 02/13/17 05:30 50 MCG Lisinopril (Zestril Tab) 10 mg DAILY PO 02/10/17 09:00 03/12/17 08:59 02/13/17 10:06 10 MG Magnesium Oxide (Mag-Ox Tab) 400 mg DAILY PO 02/10/17 09:00 03/12/17 08:59 02/13/17 10:06 400 MG Metoprolol Succinate (Toprol Xl Tab) 100 mg DAILY PO 02/10/17 09:00 03/12/17 08:59 02/13/17 10:05 100 MG Cholecalciferol (Vitamin D Tab) 2,000 inter.unit DAILY PO 02/10/17 09:00 03/12/17 08:59 02/13/17 10:06 2,000 INTER.UNIT Diltiazem HCl (Dilacor Xr Cap) 240 mg QAM PO 02/10/17 09:00 03/12/17 08:59 02/13/17 10:06 240 MG Triamcinolone Acetonide (Kenalog 0.025% Crm) 1 appln BID EXT 02/10/17 09:00 03/12/17 08:59 02/12/17 21:29 1 APPLN Rivaroxaban (Xarelto Tab) 20 mg QDD PO 02/10/17 16:45 03/12/17 16:44 02/12/17 17:56 20 MG Insulin Aspart (novoLOG ASPART) SLIDING SCALE G... ACHS SC 02/10/17 07:00 02/13/17 07:33 4 UNITS Glucose (Glucose 40% Gel) 15-30 GRAMS 15 GRAMS... UD PRN PO 02/10/17 05:15 03/12/17 05:14 Glucose (Glucose Chew Tab) 4-8 Tablets 4 Tabl... UD PRN PO 02/10/17 05:15 03/12/17 05:14 Dextrose (Dextrose 50% 50ML Syringe) 25-50ML OF 50% DW IV FOR... UD PRN IV 02/10/17 05:15 03/12/17 05:14 Glucagon 1 mg 1 mg UD PRN SQ 02/10/17 05:15 03/12/17 05:14 Levofloxacin/Prmx (Levaquin / D5W/ Premixed D5W) 150 ml @ 100 mls/hr Q24H IV 02/10/17 13:00 02/17/17 12:59 02/11/17 13:12 100 MLS/HR Albuterol/ Ipratropium (Duoneb) 3 ml QIDR INH 02/10/17 16:00 03/12/17 15:59 02/13/17 11:12 3 ML Potassium Chloride 20 meq 20 meq BID PO 02/11/17 21:00 03/13/17 20:59 02/13/17 10:05 20 MEQ Furosemide/ Dextrose (Lasix Inj/D5 100ml) 100 ml @ 10 mls/hr Q10H IV 02/13/17 08:15 02/14/17 07:14 02/13/17 08:33 10 MLS/HR I & O: 24-Hour Column 02/13/17 08:00 Intake Total 1298 ml Output Total 4575 ml Balance -3277 ml Vital Signs: Date Time Temp Pulse Resp B/P Pulse Ox O2 Delivery O2 Flow Rate FiO2 02/13/17 11:12 68 16 93 Nasal Cannula 3.0 02/13/17 08:00 Nasal Cannula 3.0 02/13/17 07:48 36.8 66 18 121/64 95 02/13/17 07:11 69 16 98 Nasal Cannula 3.0 02/13/17 04:43 36.5 77 18 106/69 97 Nasal Cannula 3.0 02/13/17 04:00 Nasal Cannula 3.0 02/13/17 00:00 Nasal Cannula 3.0 02/12/17 23:39 36.7 76 20 156/74 97 Nasal Cannula 3.0 02/12/17 20:00 Room Air 02/12/17 19:29 36.6 76 20 132/61 98 Nasal Cannula 2.0 02/12/17 19:16 66 16 98 Nasal Cannula 3.0 02/12/17 16:00 Room Air 02/12/17 15:40 36.4 62 20 115/62 96 Room Air 3.0 02/12/17 15:03 62 16 96 Nasal Cannula 3.0 02/12/17 11:55 98 Nasal Cannula 3.0 02/12/17 11:32 76 16 94 Nasal Cannula 3.0 Laboratory Results: Last 24 Hours Test 02/12/17 16:11 02/12/17 19:58 02/13/17 06:12 02/13/17 06:23 Bedside Glucose 223 mg/dl 238 mg/dl 195 mg/dl Sodium Level 136 mmol/L Potassium Level 3.8 mmol/L Chloride Level 94 mmol/L Carbon Dioxide Level 36 mmol/L Anion Gap 6.0 mmol/L Blood Urea Nitrogen 30 mg/dl Creatinine 1.30 mg/dl Est Creatinine Clear Calc Drug Dose 52.3 ml/min Estimated GFR () 47.5 Estimated GFR (Non- 41.0 BUN/Creatinine Ratio 23.0 Random Glucose 212 mg/dl Calcium Level 8.9 mg/dl
[2017-02-13] MEDS: LEVOFLOXACIN / D5W 750 MG in PREMIXED IN D5W 150 ML IV SCH (11:36)
--- NOTE | 2017-02-13 16:28 | Progress Note ---
Subjective Date of Service: February 13, 2017. Subjective pt did have a rough night being concerned that she has some hematuria, no dysuria, also some more bleeding from iv site than usual. she states she feels better and did see cardiology and they feel she is nearing her dry weight Problem List Medical Problems: (1) Abdominal pain, epigastric Status: Acute (2) Acute bronchitis Status: Acute (3) Bleeding Status: Acute (4) Congestive heart failure Status: Chronic (5) Failure of outpatient treatment Status: Acute (6) Generalized weakness Status: Acute (7) Pneumonia Status: Acute (8) Pneumonia Status: Acute (9) Sinusitis Status: Acute (10) SOB (shortness of breath) Status: Acute Review of Systems Constitutional: No chills, No fever Respiratory: No cough, No dyspnea on exertion, No shortness of breath Cardiac: + PND, + claudication, + edema, + orthopnea, No chest pain Female : + hematuria, No dysuria, No urinary frequency Psychiatric: No anhedonism, No depression symptoms Objective Vital Signs Date Time Temp Pulse Resp B/P Pulse Ox O2 Delivery O2 Flow Rate FiO2 02/13/17 16:07 100 Nasal Cannula 3.0 02/13/17 15:40 36.3 59 20 110/64 100 Nasal Cannula 2.0 02/13/17 15:14 75 12 94 Nasal Cannula 3.0 02/13/17 12:28 100 Nasal Cannula 3.0 02/13/17 11:47 36.3 69 18 131/77 100 Nasal Cannula 3.0 02/13/17 11:12 68 16 93 Nasal Cannula 3.0 02/13/17 08:00 Nasal Cannula 3.0 02/13/17 07:48 36.8 66 18 121/64 95 02/13/17 07:11 69 16 98 Nasal Cannula 3.0 02/13/17 04:43 36.5 77 18 106/69 97 Nasal Cannula 3.0 02/13/17 04:00 Nasal Cannula 3.0 02/13/17 00:00 Nasal Cannula 3.0 02/12/17 23:39 36.7 76 20 156/74 97 Nasal Cannula 3.0 02/12/17 20:00 Room Air 02/12/17 19:29 36.6 76 20 132/61 98 Nasal Cannula 2.0 02/12/17 19:16 66 16 98 Nasal Cannula 3.0 Physical Exam General Appearance: + mild distress, + obese Eyes: PERRL, EOMI Neck: supple, no JVD Respiratory/Chest: chest non-tender, lungs clear, + decreased breath sounds Cardiovascular: regular rate, rhythm, + systolic murmur Abdomen: normal bowel sounds, non tender, soft Extremities: + pedal edema, + swelling Neurologic/Psychiatric: alert, oriented x 3 Laboratory Results Last 24 Hours Test 02/12/17 19:58 02/13/17 06:12 02/13/17 06:23 02/13/17 11:23 Bedside Glucose 238 mg/dl 195 mg/dl 169 mg/dl Sodium Level 136 mmol/L Potassium Level 3.8 mmol/L Chloride Level 94 mmol/L Carbon Dioxide Level 36 mmol/L Anion Gap 6.0 mmol/L Blood Urea Nitrogen 30 mg/dl Creatinine 1.30 mg/dl Est Creatinine Clear Calc Drug Dose 52.3 ml/min Estimated GFR () 47.5 Estimated GFR (Non- 41.0 BUN/Creatinine Ratio 23.0 Random Glucose 212 mg/dl Calcium Level 8.9 mg/dl Assessment and Plan 71 y/o F Hx diastolic CHF, morbid obesity, DM, PAF, recurrent pleural effusions , chronic hypercarbic respiratory failure. . A CXR had shown reaccumulation of her effusion, which was removed and is consistent with transudative effusion. She is dependent on continuous home 02 at 3L Acute on chronic diastolic HF - pleural effusion -good results with lasix gtt with potassium augmentation, will survey renal function and if stable continue gtt for another day S/P Thoracentesis PAF - in sinus rhythm - cont Xarelto and a B markos plus diltiazem, both may treat diastolic dysfunction but wonder if dilt is contributing to peripheral edema, will continue to diurese but ask Dr Johnson to commend if dilt is needed or b markos alone or b markos + dig, consider repeat echo also Urine culture is positive, likely cause of hematuria, will transition to oral levaquin keep at pulmonary dose as initial concern for pulmonary infection, since staph is seen will use marcobid per its sensitivities Chronic Hypoxic respiratory failure, She is chronically hypercarbic likely due to obesity hypoventilation. We will cont an 02 protocol and cont her inhalers as prescribed. DM - poor control adjusted ssi adding carb coverage and consider basal amount since takes 75/25 as an outpt Dvt prevention Afsaneh discussed her Basal cell carcinoma on forehead and possibility of removal
--- NOTE | 2017-02-13 16:38 | CARDIOLOGY CONSULTATION ---
DATE OF CONSULTATION: 02/13/2017 PERTINENT HISTORY: Mrs. Arellano is a 71-year-old female admitted on the 09 of February with acute on chronic diastolic congestive heart failure and a possible pneumonia. This consultation was ordered to assist in her management. Of note, I have followed the patient on one occasion at [facility] office. The patient was in her state of usual poor health until 5-7 days prior to admission when she began to note progressive dyspnea. At this point, the patient cannot even walk within her home. The patient was admitted here in late October and early November with decompensated congestive heart failure. She has a history of a recurrent right-sided pleural effusion and had a thoracentesis which revealed 850 mL of a transudative fluid. An echocardiogram performed during that hospitalization noted normal left ventricular systolic function with an ejection fraction of 55%-60%. Right ventricular systolic performance was reduced. She was seen by myself in the [facility] office on January 31. She was doing relatively well according to her account. She was following daily weights and noted her dry weight to be 305 pounds with a "trigger" of 308 pounds. She typically took Bumex 2 mg b.i.d. with an additional dose when necessary for weight gain. The patient claims that she has been following daily weights, however, does not recall what her weight was on the day of presentation. Calculating her weight from admission here, she was 321 pounds. The patient claims to follow a low-salt diet. She no longer eats out. She does not eat salty foods. The patient also carries a history of paroxysmal atrial flutter. The diagnosis was made in November 2013. She required the addition of metoprolol succinate and long-acting diltiazem to control her ventricular response. She has been tolerating long-term anticoagulation therapy with Xarelto without difficulty. The patient was placed on Lasix drip and has had a significant diuresis with her weight now down to 300.7 pounds. She did have a thoracentesis performed on the of this month which revealed 750 mL of a transudative fluid. Currently, the patient is resting comfortably in bed without complaints. PAST MEDICAL HISTORY: 1. Chronic diastolic congestive heart failure. 2. Hypertension. 3. Moderate left ventricular hypertrophy. 4. Hypercholesterolemia. 5. Paroxysmal atrial flutter. 6. Diabetes mellitus. 7. Obesity. 8. Chronic obesity hypoventilation syndrome. 9. Recurrent right-sided pleural effusion. 10. Hypothyroidism. 11. Chronic lymphedema. 12. GERD. 13. Gout. 14. Endometrial carcinoma -- June 2000. 15. Status post SRIRAM/BSO -- June 2000. 16. Hirsutism. 17. History of left retinal hemorrhage. MEDICATIONS: 1. Lasix drip. 2. Potassium 20 mEq b.i.d. 3. Toprol-XL 100 mg per day. 4. Cardizem-CD 240 mg per day. 5. Lisinopril 10 mg per day. 6. Xarelto 20 mg daily. 7. Lipitor 40 mg at bedtime. 8. Magnesium oxide 400 mg daily. 9. Synthroid 0.05 mg daily. 10. Vitamin D 2000 International Units daily. 11. Flovent 44 mcg 1 puff b.i.d. 12. DuoNeb q.i.d. 13. Colace 100 mg b.i.d. 14. Allopurinol 100 mg per day. 15. Levaquin 750 mg IV daily. ALLERGIES: 1. PENICILLIN -- HIVES. SOCIAL HISTORY: The patient is and lives with her . Denies tobacco or alcohol. FAMILY HISTORY: Father of a CVA in his mid 70s, mother had Alzheimer's dementia at age 90. REVIEW OF SYSTEMS: A 10-point review of systems was negative except for that described above. PHYSICAL EXAMINATION: GENERAL: This is a morbidly obese white female lying supine in bed without complaints. VITAL SIGNS: Blood pressure is 130/70 with a regular pulse of 70. Respiratory rate is 18. The patient is afebrile at 36.3 degrees Celsius. Saturation is 100% on 3 liters nasal cannula. HEENT: Negative. NECK: Supple with full carotid upstrokes. No obvious bruits. Jugular venous pressure cannot be assessed. CARDIOVASCULAR: Reveals a regular rhythm with distant heart sounds. No obvious murmurs or S3. LUNGS: Note decreased breath sounds at the bases but no rales, rhonchi, or wheezes. ABDOMEN: Obese without bruits. EXTREMITIES: Reveal intact radial artery pulses bilaterally. 1-2+ nonpitting edema is seen to the knees bilaterally. Hypopigmentation changes noted. DATA: CBC notes hemoglobin 12.2, hematocrit 39.8, white count 7.8, platelet count 77,000. Electrolytes note a sodium 136, potassium 3.8, chloride 94, bicarb 36, BUN 30, creatinine 1.3, glucose 112. Troponin I was 0.02. Magnesium is normal at 2.1. TSH is 2.94. BNP is normal at 451. EKG notes normal sinus rhythm with first-degree AV block . Chest x-ray notes a small right-sided pleural effusion. IMPRESSION: Mrs. Arellano was admitted with acute on chronic diastolic congestive heart failure. She has diuresed nearly 10.5 kg. Her weight today is 300.7 pounds, 5 pounds below her prior "dry weight." I questioned whether she has been performing daily weights and using sliding scale diuretics. We have discussed the importance of this activity. The patient voices her understanding and agrees. Dr. Cancino questioned the use of diltiazem and long-acting metoprolol. She has been on that combination since November 2013 as this controls her ventricular response when she develops atrial flutter. Review of her record from November 2013 notes significant lower extremity edema at that time. Would recommend continuation of both agents at this time. PLAN: 1. Agree with aggressive diuresis. 2. Follow renal function closely as you are. 3. Reinforced the importance of daily weights and sliding scale diuretics. 4. Reinforced the importance of low-salt diet. 5. No need for repeat echocardiogram at this time, one performed back in early November. 6. Further recommendations pending clinical course. HEATH
[2017-02-13] MEDS: RIVAROXABAN 20 MG TAB PO SCH (16:42)
--- NOTE | 2017-02-13 18:40 | SURGERY PROGRESS NOTE ---
DATE: 02/13/2017 Ms. Arellano was seen today on 02/13/2017. The pleural fluid shows no evidence of malignancy on cytology. She states her breathing has been "fine." Her saturations are 100% on 3 liters. This fluid is a transudate. There is no evidence of infection or malignancy. At this point, I would not offer her anything else. HEATH
[2017-02-13] MEDS: ALPRAZOLAM 0.5 MG TAB PO PRN (20:56)
[2017-02-13] MEDS: NITROFURANTOIN MONOHYDRATE 100 MG CAP PO SCH (20:56)
[2017-02-13] MEDS: ATORVASTATIN 40 MG TAB PO SCH (20:56)
[2017-02-14] VITALS (13 sets, daily range): BP systolic 109–153; BP diastolic 60–77; PULSE 58–75; TEMP 36.4–36.9; O2SAT 93–100
[2017-02-14] MEDS: FUROSEMIDE INJ 100 MG in DEXTROSE 5% 100ML 90 ML IV SCH (03:43)
[2017-02-14] MEDS: LEVOTHYROXINE 50 MCG TAB PO SCH (05:42)
[2017-02-14] MEDS: ALBUT/IPRATROP 3MG/0.5MG NEB 3 ML VIAL INH SCH ×4 (06:55→19:12)
[2017-02-14] MEDS: INSULIN ASPART 100 UNITS/ML 3 ML PEN SC SCH ×4 (07:00→21:16)
[2017-02-14] MEDS: DOCUSATE SODIUM 100 MG CAP PO SCH ×2 (08:42→21:22)
[2017-02-14] MEDS: CHOLECALCIFEROL 1000 INTER.UNIT TAB PO SCH (08:42)
[2017-02-14] MEDS: METOPROLOL SUCC 50MG EXT REL TAB PO SCH (08:43)
[2017-02-14] MEDS: MAGNESIUM OXIDE 400 MG TAB PO SCH (08:43)
[2017-02-14] MEDS: DILTIAZEM HCL 120 MG ER CAP PO SCH (08:43)
[2017-02-14] MEDS: TRIAMCINOLONE ACET 0.025% CR 15 GM TUBE EXT SCH ×2 (08:44→20:26)
[2017-02-14] MEDS: FLUTICASONE PROP HFA INH 44 MCG INHALER INH SCH ×2 (08:44→21:20)
[2017-02-14] MEDS: LISINOPRIL 10 MG TAB PO SCH (08:44)
[2017-02-14] MEDS: HYDROCORTISONE 1% CR 30 GM TUBE EXT SCH ×2 (08:44→20:26)
[2017-02-14] MEDS: ALLOPURINOL 100 MG TAB PO SCH (08:45)
[2017-02-14] MEDS: NITROFURANTOIN MONOHYDRATE 100 MG CAP PO SCH ×2 (08:45→21:22)
[2017-02-14] MEDS: POTASSIUM CHLORIDE 20 MEQ TABCR PO SCH ×2 (08:46→21:22)
[2017-02-14] MEDS ORDERED: BUMETANIDE 1 MG TAB PO SCH (09:00)
--- NOTE | 2017-02-14 09:11 | CARDIOLOGY PROGRESS NOTE ---
DATE: 02/14/2017 DATE: 02/14/2017. SUBJECTIVE: Mrs. Arellano is resting comfortably in the bedside chair without complaints of chest pain or dyspnea. Complains of insomnia last evening. OBJECTIVE: VITAL SIGNS: Blood pressure 120/66 with a regular pulse of 63. Respiratory rate is 18. The patient is afebrile at 36.4 degrees Celsius. Saturation is 100% on 3 liters nasal cannula. NECK: Supple with full carotid upstrokes. There are no carotid bruits. Jugular venous pressure is difficult to assess. CARDIOVASCULAR EXAMINATION: Reveals a regular rhythm with a normal S1 and S2. Heart sounds are distant. No obvious murmurs. No S3. LUNGS: Clear without rales, rhonchi, or wheezes. Breath sounds are diminished at the bases. ABDOMEN: Obese without bruits. EXTREMITIES: Reveal intact radial artery pulses bilaterally. No change in lower extremities. LABORATORY DATA: CBC notes a hemoglobin of 12.0, hematocrit 39.8, white count 7.8, platelet count 177,000. Electrolytes are pending. Weight is stable at 136.7 kilograms. IMPRESSION AND PLAN: 1. Acute on chronic diastolic congestive heart failure -- patient's weight has now stabilized on a furosemide drip. Bumex is being reinstituted. Her typical dose is 2 mg b.i.d. with an additional dose as needed for weight gain. 2. Paroxysmal atrial flutter -- patient continues on metoprolol succinate and diltiazem CD. She has been on this regimen since her initial diagnosis in November 2013. Would continue that regimen for now. 3. Hypertension -- controlled. Does have moderate left ventricular hypertrophy. 4. Hypercholesterolemia -- continue statin. 5. Recurrent right pleural effusion -- status post thoracentesis by Dr. Herman. 6. Obesity -- with hypoventilation syndrome.
[2017-02-14 09:23] LABS: CREATININE 1.3 mg/dl (0.60-1.20); POTASSIUM 3.9 mmol/L (3.5-5.1)
[2017-02-14 09:32] LABS: CALCIUM 9.3 mg/dl (8.5-10.1)
--- NOTE | 2017-02-14 09:33 | SURGERY PROGRESS NOTE ---
DATE: 02/14/2017 DATE: 02/14/2017. Ms. Arellano was seen today on 02/14/2017. She is actually ambulating in the hallway with a walker. She does have decreased breath sounds at both bases, but she states that she is much improved. At this point, from a thoracic surgery standpoint and a pleural fluid standpoint, I would not offer her anything else on this admission. We will follow her up in the office in about 3 weeks with a chest x-ray.
[2017-02-14] MEDS ORDERED: PHENAZOPYRIDINE HCL 200 MG TAB PO ONE (09:45)
--- NOTE | 2017-02-14 10:31 | Pulmonology Progress Note ---
Pulmonary Progress Note Date of Service Feb 14, 2017. 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: AAOx4, no focal deficit Assessment & Plan (1) Congestive heart failure Assessment & Plan: continue bumex (2) Pleural effusion Assessment & Plan: repeat cxr in am continue diueresis (3) Hypertension Nos Assessment & Plan: continue present antihypertensive meds Patient's BP under better control (4) Morbid obesity Assessment & Plan: her obesity is contributing to her medical problems patient counseled on weight loss (5) Hypoxia (6) UTI (urinary tract infection) (7) uti Assessment & Plan: repeat u/a , c&S, patient already on abx appears to be back to her baseline o2 requirement continue o2 3L nasal cannula prognosis guarded in view of morbid obesity and non compliance to NIV Data Medications: Current Inpatient Medications Medications (Trade) Dose Ordered Sig/Johnnie Route Start Time Stop Time Status Last Admin Dose Admin Acetaminophen (Tylenol Tab) 650 mg Q4H PRN PO 02/10/17 03:00 03/12/17 02:59 Al Hydrox/Mg Hydrox/Simethicone (Maalox Max Susp) 15 ml Q4H PRN PO 02/10/17 03:00 03/12/17 02:59 Magnesium Hydroxide (Milk Of Magnesia Susp) 30 ml Q12H PRN PO 02/10/17 03:00 03/12/17 02:59 Ondansetron HCl (Zofran Inj) 4 mg Q6H PRN IV 02/10/17 03:00 03/12/17 02:59 Polyethylene (Miralax Powder Packet) 17 gm DAILY PRN PO 02/10/17 03:00 03/12/17 02:59 Allopurinol (Zyloprim Tab) 100 mg DAILY PO 02/10/17 09:00 03/12/17 08:59 02/14/17 08:45 100 MG Alprazolam (Xanax Tab) 0.5 mg BID PRN PO 02/10/17 03:00 03/12/17 02:59 02/13/17 20:56 0.5 MG Arformoterol Tartrate (Brovana 15MCG/ 2ML Neb Soln) 15 mcg BIDR INH 02/10/17 08:00 03/12/17 07:59 Future Hold 02/10/17 07:44 15 MCG Atorvastatin Calcium (Lipitor Tab) 40 mg QPM PO 02/10/17 21:00 03/12/17 20:59 02/13/17 20:56 40 MG Docusate Sodium (coLACE CAP) 100 mg BID PO 02/10/17 09:00 03/12/17 08:59 02/14/17 08:42 100 MG Fluticasone Propionate (Flovent Hfa 44MCG Inhaler) 1 puffs BID INH 02/10/17 09:00 03/12/17 08:59 02/14/17 08:44 1 PUFFS Hydrocortisone (Hydrocortisone 1% Crm) 1 appln BID EXT 02/10/17 09:00 03/12/17 08:59 02/14/17 08:44 1 APPLN Levothyroxine Sodium (Synthroid Tab) 50 mcg DAILYBB PO 02/10/17 06:00 03/12/17 05:59 02/14/17 05:42 50 MCG Lisinopril (Zestril Tab) 10 mg DAILY PO 02/10/17 09:00 03/12/17 08:59 02/14/17 08:44 10 MG Magnesium Oxide (Mag-Ox Tab) 400 mg DAILY PO 02/10/17 09:00 03/12/17 08:59 02/14/17 08:43 400 MG Metoprolol Succinate (Toprol Xl Tab) 100 mg DAILY PO 02/10/17 09:00 03/12/17 08:59 02/14/17 08:43 100 MG Cholecalciferol (Vitamin D Tab) 2,000 inter.unit DAILY PO 02/10/17 09:00 03/12/17 08:59 02/14/17 08:42 2,000 INTER.UNIT Diltiazem HCl (Dilacor Xr Cap) 240 mg QAM PO 02/10/17 09:00 03/12/17 08:59 02/14/17 08:43 240 MG Triamcinolone Acetonide (Kenalog 0.025% Crm) 1 appln BID EXT 02/10/17 09:00 03/12/17 08:59 02/14/17 08:44 1 APPLN Rivaroxaban (Xarelto Tab) 20 mg QDD PO 02/10/17 16:45 03/12/17 16:44 02/13/17 16:42 20 MG Insulin Aspart (novoLOG ASPART) SLIDING SCALE G... ACHS SC 02/10/17 07:00 03/13/17 06:59 02/14/17 07:00 8 UNITS Glucose (Glucose 40% Gel) 15-30 GRAMS 15 GRAMS... UD PRN PO 02/10/17 05:15 03/12/17 05:14 Glucose (Glucose Chew Tab) 4-8 Tablets 4 Tabl... UD PRN PO 02/10/17 05:15 03/12/17 05:14 Dextrose (Dextrose 50% 50ML Syringe) 25-50ML OF 50% DW IV FOR... UD PRN IV 02/10/17 05:15 03/12/17 05:14 Glucagon (Glucagon Inj) 1 mg UD PRN SQ 02/10/17 05:15 03/12/17 05:14 Albuterol/ Ipratropium (Duoneb) 3 ml QIDR INH 02/10/17 16:00 03/12/17 15:59 02/14/17 06:55 3 ML Potassium Chloride (Klor-Con Tab) 20 meq BID PO 02/11/17 21:00 03/13/17 20:59 02/14/17 08:46 20 MEQ Levofloxacin (Levaquin Tab) 750 mg DAILY@11 PO 02/14/17 11:00 02/19/17 10:59 Nitrofurantoin Macrocrystals (Macrobid Cap) 100 mg BID PO 02/13/17 21:00 02/18/17 20:59 02/14/17 08:45 100 MG Bumetanide (Bumex Tab) 2 mg QAM PO 02/14/17 09:00 03/16/17 08:59 02/14/17 08:42 2 MG Vital Signs: Date Time Temp Pulse Resp B/P (MAP) Pulse Ox O2 Delivery O2 Flow Rate FiO2 02/14/17 07:58 36.4 63 18 121/66 (84) 100 3.0 02/14/17 06:58 68 16 99 Nasal Cannula 3.0 02/14/17 04:00 Nasal Cannula 3.0 02/14/17 03:56 36.9 60 18 134/77 (96) 100 Nasal Cannula 3.0 02/13/17 23:53 Nasal Cannula 3.0 02/13/17 23:03 36.4 64 19 134/68 (90) 99 Nasal Cannula 3.0 02/13/17 20:00 Nasal Cannula 3.0 02/13/17 19:45 36.2 63 22 121/68 (85) 100 Nasal Cannula 2.0 02/13/17 19:04 64 16 93 Nasal Cannula 3.0 02/13/17 16:07 100 Nasal Cannula 3.0 02/13/17 15:40 36.3 59 20 110/64 (79) 100 Nasal Cannula 2.0 02/13/17 15:14 75 12 94 Nasal Cannula 3.0 02/13/17 12:28 100 Nasal Cannula 3.0 02/13/17 11:47 36.3 69 18 131/77 (95) 100 Nasal Cannula 3.0 02/13/17 11:12 68 16 93 Nasal Cannula 3.0 Laboratory Results: Last 24 Hours Test 02/13/17 11:23 02/13/17 15:56 02/13/17 19:59 02/14/17 06:24 Bedside Glucose 169 mg/dl 222 mg/dl 232 mg/dl 241 mg/dl Test 02/14/17 08:40 Sodium Level 133 mmol/L Potassium Level 3.9 mmol/L Chloride Level 89 mmol/L Carbon Dioxide Level 37 mmol/L Anion Gap 7.0 mmol/L Blood Urea Nitrogen 27 mg/dl Creatinine 1.30 mg/dl Est Creatinine Clear Calc Drug Dose 52.3 ml/min Estimated GFR () 47.5 Estimated GFR (Non- 41.0 BUN/Creatinine Ratio 21.0 Random Glucose 272 mg/dl Calcium Level 9.3 mg/dl
[2017-02-14] MEDS ORDERED: LEVOFLOXACIN 750 MG TAB PO SCH (11:00)
--- NOTE | 2017-02-14 12:30 | Progress Note ---
Subjective Date of Service: Feb 14, 2017. Subjective pt says she had a poor nights sleep due to dysuria, that she was worrying about her urine infection, otherwise feels her legs are much better, we did discuss maura boots or wraps to help with dependent edema and she did not seem much interested saying that they did not work in the past, also still not interested in NIV Problem List Medical Problems: (1) Abdominal pain, epigastric Status: Acute (2) Acute bronchitis Status: Acute (3) Bleeding Status: Acute (4) Congestive heart failure Status: Chronic (5) Failure of outpatient treatment Status: Acute (6) Generalized weakness Status: Acute (7) Pneumonia Status: Acute (8) Pneumonia Status: Acute (9) Sinusitis Status: Acute (10) SOB (shortness of breath) Status: Acute Review of Systems Constitutional: No fever, No chills, No weakness Respiratory: + shortness of breath, + dyspnea on exertion, + dyspnea at rest, No cough, No sputum Cardiac: + edema, No chest pain, No orthopnea Abdomen: No pain, No nausea, No vomiting, No diarrhea Female : No dysuria, No urinary frequency, No hematuria Neurologic: No memory loss, No paralysis Psychiatric: No depression symptoms, No anhedonism, No anxiety Objective Vital Signs Date Time Temp Pulse Resp B/P (MAP) Pulse Ox O2 Delivery O2 Flow Rate FiO2 02/14/17 12:00 Nasal Cannula 3.0 02/14/17 11:23 59 16 94 Nasal Cannula 3.0 02/14/17 11:15 36.5 59 18 109/66 (80) 94 3.0 02/14/17 08:00 98 Room Air 02/14/17 07:58 36.4 63 18 121/66 (84) 100 3.0 02/14/17 06:58 68 16 99 Nasal Cannula 3.0 02/14/17 04:00 Nasal Cannula 3.0 02/14/17 03:56 36.9 60 18 134/77 (96) 100 Nasal Cannula 3.0 02/13/17 23:53 Nasal Cannula 3.0 02/13/17 23:03 36.4 64 19 134/68 (90) 99 Nasal Cannula 3.0 02/13/17 20:00 Nasal Cannula 3.0 02/13/17 19:45 36.2 63 22 121/68 (85) 100 Nasal Cannula 2.0 02/13/17 19:04 64 16 93 Nasal Cannula 3.0 02/13/17 16:07 100 Nasal Cannula 3.0 02/13/17 15:40 36.3 59 20 110/64 (79) 100 Nasal Cannula 2.0 02/13/17 15:14 75 12 94 Nasal Cannula 3.0 02/13/17 12:28 100 Nasal Cannula 3.0 Physical Exam General Appearance: WD/WN, + mild distress Eyes: PERRL, EOMI Neck: supple, no JVD Respiratory/Chest: chest non-tender, no accessory muscle use, + respiratory distress (mild with exertion), + decreased breath sounds Cardiovascular: regular rate, rhythm, + systolic murmur Abdomen: normal bowel sounds, non tender, soft Extremities: no calf tenderness, + pedal edema, + swelling Neurologic/Psychiatric: alert, oriented x 3 Skin: + pertinent finding (changes of chronic venous stasis with color and texture) Laboratory Results Last 24 Hours Test 02/13/17 15:56 02/13/17 19:59 02/14/17 06:24 02/14/17 08:40 Bedside Glucose 222 mg/dl 232 mg/dl 241 mg/dl Sodium Level 133 mmol/L Potassium Level 3.9 mmol/L Chloride Level 89 mmol/L Carbon Dioxide Level 37 mmol/L Anion Gap 7.0 mmol/L Blood Urea Nitrogen 27 mg/dl Creatinine 1.30 mg/dl Est Creatinine Clear Calc Drug Dose 52.3 ml/min Estimated GFR () 47.5 Estimated GFR (Non- 41.0 BUN/Creatinine Ratio 21.0 Random Glucose 272 mg/dl Calcium Level 9.3 mg/dl Test 02/14/17 11:03 Bedside Glucose 208 mg/dl Assessment and Plan 71 y/o F Hx diastolic CHF, morbid obesity, DM, PAF, recurrent pleural effusions , chronic hypercarbic respiratory failure. . A CXR had shown reaccumulation of her effusion, which was removed and is consistent with transudative effusion. She is dependent on continuous home 02 at 3L Acute on chronic diastolic HF - pleural effusion -good results with lasix gtt with potassium augmentation, will survey renal function and if stable continue gtt for another day S/P Thoracentesis PAF - in sinus rhythm - cont Xarelto and a B markos plus diltiazem, both may treat diastolic dysfunction but wonder if dilt is contributing to peripheral edema, will continue to diurese but ask Dr Johnson to commend if dilt is needed or b markos alone or b markos + dig, consider repeat echo also Urine culture is positive, likely cause of hematuria, will transition to oral levaquin keep at pulmonary dose as initial concern for pulmonary infection, since staph is seen will use marcobid per its sensitivities Chronic Hypoxic respiratory failure, She is chronically hypercarbic likely due to obesity hypoventilation. We will cont an 02 protocol and cont her inhalers as prescribed. DM - poor control adjusted ssi adding carb coverage and consider basal amount since takes 75/25 as an outpt Dvt prevention Afsaneh discussed her Basal cell carcinoma on forehead and possibility of removal
[2017-02-14] MEDS: RIVAROXABAN 20 MG TAB PO SCH (17:02)
[2017-02-14] MEDS: ALPRAZOLAM 0.5 MG TAB PO PRN (21:20)
[2017-02-14] MEDS: ATORVASTATIN 40 MG TAB PO SCH (21:21)
[2017-02-14] MEDS: BUMETANIDE 1 MG TAB PO SCH (21:22)
[2017-02-15] VITALS (8 sets, daily range): BP systolic 112–153; BP diastolic 53–69; PULSE 66–84; TEMP 36.4–36.6; O2SAT 95–100
[2017-02-15] MEDS: LEVOTHYROXINE 50 MCG TAB PO SCH (06:46)
[2017-02-15] MEDS: ALBUT/IPRATROP 3MG/0.5MG NEB 3 ML VIAL INH SCH ×4 (07:00→19:37)
[2017-02-15 07:40] LABS: BUN/CREATININE RATIO 23.5 (10-20); CALCIUM 8.8 mg/dl (8.5-10.1); CREATININE 1.3 mg/dl (0.60-1.20); POTASSIUM 4.1 mmol/L (3.5-5.1)
[2017-02-15] MEDS ORDERED: METOLAZONE 2.5 MG TAB PO ONE (08:15)
[2017-02-15] MEDS: HYDROCORTISONE 1% CR 30 GM TUBE EXT SCH ×2 (08:52→21:00)
[2017-02-15] MEDS: TRIAMCINOLONE ACET 0.025% CR 15 GM TUBE EXT SCH ×2 (08:52→21:00)
[2017-02-15] MEDS: FLUTICASONE PROP HFA INH 44 MCG INHALER INH SCH ×2 (08:52→22:07)
[2017-02-15] MEDS: METOPROLOL SUCC 50MG EXT REL TAB PO SCH (08:53)
[2017-02-15] MEDS: BUMETANIDE 1 MG TAB PO SCH ×2 (08:53→19:25)
[2017-02-15] MEDS: ALLOPURINOL 100 MG TAB PO SCH (08:54)
[2017-02-15] MEDS: POTASSIUM CHLORIDE 20 MEQ TABCR PO SCH ×2 (08:54→22:16)
[2017-02-15] MEDS: LISINOPRIL 10 MG TAB PO SCH (08:54)
[2017-02-15] MEDS: DOCUSATE SODIUM 100 MG CAP PO SCH ×2 (08:55→22:16)
[2017-02-15] MEDS: MAGNESIUM OXIDE 400 MG TAB PO SCH (08:55)
[2017-02-15] MEDS: NITROFURANTOIN MONOHYDRATE 100 MG CAP PO SCH ×2 (08:56→22:16)
[2017-02-15] MEDS: DILTIAZEM HCL 120 MG ER CAP PO SCH (08:56)
[2017-02-15] MEDS: CHOLECALCIFEROL 1000 INTER.UNIT TAB PO SCH (08:58)
[2017-02-15] MEDS: INSULIN ASPART 100 UNITS/ML 3 ML PEN SC SCH ×4 (09:00→22:09)
[2017-02-15] MEDS: CIPROFLOXACIN 500 MG TAB PO SCH ×2 (09:00→22:16)
[2017-02-15] MEDS ORDERED: PHENAZOPYRIDINE HCL 200 MG TAB PO STA (09:14)
[2017-02-15] MEDS ORDERED: MAGNESIUM SULFATE 1GM / D5W 1 GM in PREMIXED IN D5W 100 ML IV ONE (09:45)
[2017-02-15] MEDS: ALPRAZOLAM 0.5 MG TAB PO PRN ×2 (10:28→22:15)
--- NOTE | 2017-02-15 11:11 | DIAGNOSTIC IMAGING REPORT ---
CHEST 2 VIEWS ROUTINE CLINICAL HISTORY: right pleural effusion COMPARISON STUDY: 02/02/2017 FINDINGS: The heart remains enlarged. There is a small right pleural effusion. Increased basal markings are felt to be atelectatic in similar to the prior study. There is no overt failure.[ IMPRESSION: Cardiomegaly and small right pleural effusion. Minor basilar atelectasis. Electronically signed by: Jacob Horan M.D. 02/15/2017 11:10 AM Dictated Date/Time: 02/15/2017 11:08 AM
--- NOTE | 2017-02-15 12:21 | Progress Note ---
Subjective Date of Service: Feb 15, 2017. Subjective pts interview today is full of somatic complaints, now concerned about some bleeding on underwear, montesinos hematura stopped with treatment of uti, is on xarelto, unsure if has hemorrhoids, but no melody rectal pain, does not feel is from vagina. overall feels legs more tight, did gain weight overnight, will add zaroxlyn to bumex Problem List Medical Problems: (1) Abdominal pain, epigastric Status: Acute (2) Acute bronchitis Status: Acute (3) Bleeding Status: Acute (4) Congestive heart failure Status: Chronic (5) Failure of outpatient treatment Status: Acute (6) Generalized weakness Status: Acute (7) Pneumonia Status: Acute (8) Pneumonia Status: Acute (9) Sinusitis Status: Acute (10) SOB (shortness of breath) Status: Acute Review of Systems Constitutional: No fever, No chills Respiratory: + shortness of breath, + dyspnea on exertion, No cough, No dyspnea at rest Cardiac: + orthopnea, + edema, No chest pain, No PND Abdomen: No pain, No nausea, No vomiting, No diarrhea Female : No dysuria, No urinary frequency, No hematuria Psychiatric: + depression symptoms, + anhedonism, + anxiety Objective Vital Signs Date Time Temp Pulse Resp B/P (MAP) Pulse Ox O2 Delivery O2 Flow Rate FiO2 02/15/17 12:12 99 Nasal Cannula 3.0 02/15/17 11:50 99 Nasal Cannula 3.0 02/15/17 11:48 36.4 66 20 112/53 (72) 99 02/15/17 08:00 Nasal Cannula 3.0 02/15/17 07:15 36.6 66 18 153/69 (97) 95 02/15/17 07:00 71 16 98 Nasal Cannula 3.0 02/15/17 04:06 36.5 67 19 152/64 (93) 100 Nasal Cannula 3.0 Humidified Oxygen 02/15/17 04:00 Nasal Cannula 3.0 02/14/17 23:59 99 Nasal Cannula 3.0 02/14/17 23:07 36.7 72 22 153/68 (96) 99 Nasal Cannula 3.0 02/14/17 20:15 36.4 75 20 136/61 (86) 100 Nasal Cannula 3.0 02/14/17 20:00 Nasal Cannula 3.0 02/14/17 19:12 66 16 99 Nasal Cannula 3.0 02/14/17 16:00 Nasal Cannula 3.0 02/14/17 15:39 36.4 66 20 123/60 (81) 95 Nasal Cannula 2.0 02/14/17 15:38 58 16 93 Nasal Cannula 3.0 Physical Exam General Appearance: + mild distress, + obese Eyes: PERRL, EOMI Neck: supple, no JVD Respiratory/Chest: chest non-tender, lungs clear, + decreased breath sounds Cardiovascular: no murmur, + irregularly irregular Abdomen: normal bowel sounds, non tender, soft Extremities: + pedal edema, + swelling, + pertinent finding (changes of chronic venous stasis) Neurologic/Psychiatric: alert, oriented x 3 Laboratory Results Last 24 Hours Test 02/14/17 15:55 02/14/17 21:09 02/15/17 06:37 02/15/17 06:56 Bedside Glucose 230 mg/dl 284 mg/dl 233 mg/dl Sodium Level 134 mmol/L Potassium Level 4.1 mmol/L Chloride Level 93 mmol/L Carbon Dioxide Level 37 mmol/L Anion Gap 4.0 mmol/L Blood Urea Nitrogen 31 mg/dl Creatinine 1.30 mg/dl Est Creatinine Clear Calc Drug Dose 53.1 ml/min Estimated GFR () 47.5 Estimated GFR (Non- 41.0 BUN/Creatinine Ratio 23.5 Random Glucose 226 mg/dl Calcium Level 8.8 mg/dl Test 02/15/17 11:19 Bedside Glucose 248 mg/dl Assessment and Plan 71 y/o F Hx diastolic CHF, morbid obesity, DM, PAF, recurrent pleural effusions , chronic hypercarbic respiratory failure. . A CXR had shown reaccumulation of her effusion, which was removed and is consistent with transudative effusion. She is dependent on continuous home 02 at 3L Acute on chronic diastolic HF - pleural effusion -pt had good results with lasix gtt, no slipped backward while on bumex will increase but did give metolazone 02/15 also, pt admits to not weighing herself at home, will reinforce need to do so PAF - in sinus rhythm - cont Xarelto and a B markos plus diltiazem,Dr Gil wants to keep regimen Urine culture is positive,resolved hematuria, cipro and marcobid per its sensitivities Chronic Hypoxic respiratory failure, stable, 02 protocol and cont her inhalers as prescribed. DM -continues with poor control adjusted ssi adding carb coverage and consider basal amount since takes 75/25 as an outpt Dvt prevention Afsaneh discussed her Basal cell carcinoma on forehead and possibility of removal
--- NOTE | 2017-02-15 12:27 | CARDIOLOGY PROGRESS NOTE ---
DATE: 02/15/2017 SUBJECTIVE: Mrs. Arellano is resting comfortably in the bedside chair complaining of insomnia due to leg cramps last evening. OBJECTIVE: VITAL SIGNS: Blood pressure 112/53 with a regular pulse of 66. Respiratory rate is 20. The patient is afebrile at 36.4 degrees Celsius. Saturations 99% on 3 liters nasal cannula. NECK: Supple with full carotid upstrokes. No carotid bruits. Jugular venous pressure is difficult to assess. CARDIOVASCULAR: Reveals a regular rhythm with normal S1 and S2. Heart sounds are distant. No obvious murmurs. No S3. LUNGS: Clear without rales, rhonchi, or wheezes. Breath sounds are distant. ABDOMEN: Obese without bruits. EXTREMITIES: Reveal intact radial artery pulses bilaterally. No change in lower extremities. DATA: Electrolytes note a sodium of 134, potassium 4.1, chloride 93, bicarb 37, BUN 31, creatinine 1.3, glucose 226. ekg monitor tech is benign. IMPRESSION AND PLAN: 1. Acute on chronic diastolic congestive heart failure - Lasix infusion was discontinued yesterday and she was placed back on Bumex 2 mg b.i.d. She did demonstrate an increase of 3 kilograms overnight. Discuss[address] with Dr. Cancino. We may consider use of metolazone. I have stressed the importance of daily weights and sliding scale diuretics to both patient and her who was at the bedside. She admits that she had not been following daily weights leading up to this hospitalization as the glass scale that she has at home "scared her." 2. Paroxysmal atrial flutter - patient continues to metoprolol succinate diltiazem CD. As before, she has been on this regimen for many years. 3. Hypertension - controlled. Has moderate left ventricular hypertrophy on echocardiogram. 4. Hypercholesterolemia - continue statin. 5. Recurrent right pleural effusion - status post thoracentesis by Dr. Herman. 6. Obesity - hypoventilation syndrome.
--- NOTE | 2017-02-15 14:28 | SURGERY PROGRESS NOTE ---
DATE: 02/15/2017 SUBJECTIVE: Ms. Arellano is seen today. She states her legs "locked up" on her last night. Her oxygenation really has not changed much. Her x-ray looks very good. I see very little in the way of any fluid. She is 99% on 3 liters. At this point, I would not intervene further. We will follow her up in the office in 3 weeks.
[2017-02-15] MEDS: RIVAROXABAN 20 MG TAB PO SCH (19:25)
[2017-02-15] MEDS ORDERED: TRAZODONE HCL 50 MG TAB PO SCH (21:00)
[2017-02-15] MEDS: ATORVASTATIN 40 MG TAB PO SCH (22:17)
[2017-02-16] VITALS (7 sets, daily range): BP systolic 107–142; BP diastolic 58–77; PULSE 68–88; TEMP 36.2–37.1; O2SAT 96–100
[2017-02-16] MEDS: LEVOTHYROXINE 50 MCG TAB PO SCH (05:56)
[2017-02-16] MEDS: ALBUT/IPRATROP 3MG/0.5MG NEB 3 ML VIAL INH SCH ×2 (07:25→11:29)
[2017-02-16 07:48] LABS: CREATININE 1.2 mg/dl (0.60-1.20); MAGNESIUM 2.1 mg/dl (1.8-2.4)
[2017-02-16] MEDS ORDERED: BMX1 PO ×2 (08:08→15:01)
[2017-02-16] MEDS ORDERED: MCRK20 PO (08:08)
[2017-02-16] MEDS ORDERED: CPR500 PO (08:08)
[2017-02-16] MEDS ORDERED: ALPR1TAB3 PO (08:08)
[2017-02-16] MEDS ORDERED: MCRB100 PO (08:08)
[2017-02-16] MEDS ORDERED: XRL20 PO (08:10)
--- NOTE | 2017-02-16 08:10 | Discharge Instructions ---
Discharge Instructions Date of Service Feb 16, 2017. Admission Reason for Admission: Pleural Effusion Discharge Discharge Diagnosis / Problem: acute diastolic heart failure Discharge Goals Goal(s): Diagnostic testing, Therapeutic intervention Activity Recommendations Activity Limitations: resume your previous activity . Instructions / Follow-Up Instructions / Follow-Up Call your Primary Care doctor if any of the following symptoms or problems start or get worse: * Shortness of breath or difficulty breathing * Wake up at night short of breath * Chest pain * Cough * Swelling of your hands, feet, or legs * More fatigued or tired with your normal activity * Palpitations - sudden fast heart beats WEIGHT * Weigh yourself every morning after using the bathroom. * Use the same scale. * Wear the same amount of clothing. * Write your weight down on a chart. * Call your Primary Care doctor if you gain more than 2-3 pounds in 1-2 days. MEDICATIONS * Use this discharge instruction sheet for medication instructions. * Take your medications at the time your doctor ordered. * Do not skip a dose of your medicines. * If you miss a dose of medicine, take it as soon as possible, but DO NOT DOUBLE A DOSE. * Read your medicine information when you get home. * Know all of the side effects of your medicine. If in doubt, ask your pharmacist * Call your Primary Care doctor's office if you have any side effects. * Be sure all of your doctors know what medicine and herbs you take (including cold, flu, and herbal medicine). Take the following with you to your follow-up doctor appointments: * Weight Chart * Medication List * List of questions Do not drink excessive alcohol, beer or wine. Current Hospital Diet Patient's current hospital diet: AHA Diet (Heart Healthy), Diabetes Type 2 Diet Discharge Diet Recommended Diet: Low Sodium Diet (2gm Na), Diabetes Type 2 Diet Pending Studies Studies pending at discharge: no Laboratory Results Hemoglobin A1c Test 01/04/17 06:07 Range/Units Estimated Average Glucose 166 mg/dl Hemoglobin A1c 7.4 H 4.5-5.6 % Lipid Panel Test 12/26/16 08:10 Range/Units Triglycerides Level 87 0-150 mg/dl Cholesterol Level 104 0-200 mg/dl HDL Cholesterol 38 mg/dl Cholesterol/HDL Ratio 2.7 LDL Cholesterol, Calculated 49 mg/dl Medical Emergencies . Who to Call and When: Call 911 or go to the Emergency Room if: * If at any time you feel your situation is an emergency * You have tightness or pain in your chest that does not go away with rest or Nitroglycerin * You are very short of breath even with rest . Non-Emergent Contact Non-Emergency issues call your: Primary Care Provider Call Non-Emergent contact if: temperature is above 101, your pain is unusual for you . . "Provider Documentation" section prepared by Beau Cancino. . VTE Core Measure Inpt VTE Proph given/why not?: Other Anticoagulation
[2017-02-16] MEDS: INSULIN ASPART 100 UNITS/ML 3 ML PEN SC SCH ×2 (08:16→12:02)
[2017-02-16] MEDS: HYDROCORTISONE 1% CR 30 GM TUBE EXT SCH (08:22)
[2017-02-16] MEDS: TRIAMCINOLONE ACET 0.025% CR 15 GM TUBE EXT SCH (08:22)
[2017-02-16] MEDS: DOCUSATE SODIUM 100 MG CAP PO SCH (08:27)
[2017-02-16] MEDS: BUMETANIDE 1 MG TAB PO SCH (08:39)
[2017-02-16] MEDS: CIPROFLOXACIN 500 MG TAB PO SCH (08:39)
[2017-02-16] MEDS: DILTIAZEM HCL 120 MG ER CAP PO SCH (08:40)
[2017-02-16] MEDS: MAGNESIUM OXIDE 400 MG TAB PO SCH (08:41)
[2017-02-16] MEDS: POTASSIUM CHLORIDE 20 MEQ TABCR PO SCH (08:41)
[2017-02-16] MEDS: NITROFURANTOIN MONOHYDRATE 100 MG CAP PO SCH (08:41)
[2017-02-16] MEDS: METOPROLOL SUCC 50MG EXT REL TAB PO SCH (08:42)
[2017-02-16] MEDS: CHOLECALCIFEROL 1000 INTER.UNIT TAB PO SCH (08:44)
[2017-02-16] MEDS: LISINOPRIL 10 MG TAB PO SCH (08:45)
[2017-02-16] MEDS: ALLOPURINOL 100 MG TAB PO SCH (08:45)
[2017-02-16] MEDS: FLUTICASONE PROP HFA INH 44 MCG INHALER INH SCH (08:58)
--- NOTE | 2017-02-16 15:02 | Discharge Summary ---
Discharge Summary Date of Service Feb 16, 2017. Discharge Summary Admission Date: February 10, 2017 at 03:07 Discharge Date: Feb 16, 2017 Discharge Disposition: Home with services Principal Diagnosis: acute diastolic heart failure Problems/Secondary Diagnoses: (1) Congestive heart failure Status: Chronic Immunizations: Have You Had Influenza Vaccine: Unknown Influenza Vaccine Date: Jul 25, 2012 History of Tetanus Vaccine?: Unknown History of Pneumococcal: Unknown History of Hepatitis B Vaccine: Unknown Medication Reconciliation New Medications: Ciprofloxacin (Ciprofloxacin HCl) 500 Mg Tab 500 MG PO BID, #8 TAB Nitrofurantoin Monohyd Macrocr (Nitrofurantoin Monohydrat) 100 Mg Cap 100 MG PO BID, #8 CAP Potassium Chloride (Klor-Con M20) 20 Meq Tabcr 20 MEQ PO BID, #60 DOSE Rivaroxaban (Xarelto) 20 Mg Tab 20 MG PO QDD, #30 TAB 6 Refills Continued Medications: Allopurinol (Zyloprim) 100 Mg Tab 100 MG PO DAILY AT 1200, TAB Alprazolam (Xanax) 1 Mg Tab 0.5 MG PO BID PRN for Anxiety, #30 TAB (This prescription has been renewed) Arformoterol Tartrate (Brovana) 15 Mcg/2 Ml Neb 15 MCG INH BID for 30 Days, #1 INHALER 6 Refills Atorvastatin (Lipitor) 40 Mg Tab 40 MG PO QPM, TAB Bumetanide (Bumetanide) 1 Mg Tab 1 MG PO UD, #90 TAB 0 Refills (This prescription has been renewed) 3 pills in the am and 2 at night if weight is up 3# in a day or 5# in a week take additional 2 pill that day and call doctor Cholecalciferol (Vitamin D3) 2,000 Unit Tab 2000 INTER.UNIT PO DAILY, TAB 3 Refills Diltiazem Hcl Extended Release (Diltiazem Hcl) 240 Mg Cap 240 MG PO QAM Docusate Sodium (Colace) 100 Mg Cap 100 MG PO BID, CAP Eflornithine Hcl (Vaniqa) 13.9 % Cre 1 APPLN TOP BID PRN for Hirsutism, GM APPLY AND GENTLY MASSAGE INTO AFFECTED AREA. Fluticasone Propionate (Flovent Hfa) 120 Puffs/5280 Mcg Aero 1 PUFFS INH BID for 30 Days, #1 INHALER 2 Refills Hydrocortisone 1% (Hydrocortisone 1%) 90 Appln/30 Gm Cr 1 APPL TOP BID Insulin Lispro Protamine & Lis (Humalog Mix / Kwikpen) 1 Inj Inj 80 UNITS SQ Q12 Levothyroxine Sodium (Levothyroxine Sodium) 50 Mcg Tab 50 MCG PO QAM Lisinopril (Zestril) 10 Mg Tab 10 MG PO DAILY, TAB Magnesium Oxide (Mag-Ox) 400 Mg Tab 400 MG PO DAILY AT NOON, TAB Metoprolol Succ (Toprol Xl) (Toprol-Xl ) 100 Mg Tabcr 100 MG PO DAILY, TAB Oxygen (Oxygen) Gas 3 LITERS NA CONTINOUS USES NEEDED Triamcinolone Acetonide (Topic (Triamcinolone Acet 0.025%) 0.025 % Lot 1 APPLN EXT BID Discharge Exam Review of Systems: Constitutional: No fever, No chills, No sweats Respiratory: + dyspnea on exertion, No cough, No sputum, No shortness of breath Cardiovascular: + orthopnea, + PND, + edema, No chest pain Abdomen: No pain, No nausea, No vomiting Physical Exam: General Appearance: no apparent distress, + obese Eyes: PERRL, EOMI Neck: supple, no JVD Respiratory/Chest: chest non-tender, lungs clear, normal breath sounds Cardiovascular: regular rate, rhythm, no murmur Abdomen / GI: normal bowel sounds, non tender, soft Extremities: + pedal edema, + slow capillary refill, + swelling, + pertinent finding (changes of chronic venous stasis) Hospital Course 71 y/o F Hx diastolic CHF, morbid obesity, DM, PAF, recurrent pleural effusions , chronic hypercarbic respiratory failure. . A CXR had shown reaccumulation of her effusion, which was removed and is consistent with transudative effusion. She is dependent on continuous home 02 at 3L Acute on chronic diastolic HF - pleural effusion -pt had good results with lasix gtt, will send home on increased bumex, pt admits to not weighing herself at home, will reinforce need to do so PAF - in sinus rhythm - cont Xarelto and a B markos plus diltiazem,Dr Gil wants to keep regimen Urine culture is positive,resolved hematuria, cipro and marcobid per its sensitivities Chronic Hypoxic respiratory failure, inhalers as prescribed. DM -return to / as an outpt Dvt prevention Afsaneh discussed her Basal cell carcinoma on forehead and possibility of removal Total Time Spent: Greater than 30 minutes This includes examination of the patient, discharge planning, medication reconciliation, and communication with other providers. Discharge Instructions Please refer to the electronic Patient Visit Report (Discharge Instructions) for additional information.
[2017-03-13] MEDS ORDERED: CLIN300C2 PO (12:33)
== END 2017-02-16 12:30 | disposition home or self-care (01) | DRG 291 ==
LOC: ENRESERVTM → ENRESERVDT → EDBD 22:21 → C.EDB 22:22 → C.2T 02-10 03:07 → C.MS2W 02-15 09:15 → ENRESERV 02-15 09:35
PROVIDERS: ADMIT Internal Medicine; ATTEND Internal Medicine
PROC: 0W993ZZ Drainage of Right Pleural Cavity, Percutaneous Approach (ICD-10-PCS; principal; 2017-02-10)
DX: I50.33 Acute on chronic diastolic (congestive) heart failure (principal); J96.22 Acute and chronic respiratory failure with hypercapnia; J90 Pleural effusion, not elsewhere classified; E66.2 Morbid (severe) obesity with alveolar hypoventilation; E11.9 Type 2 diabetes mellitus without complications; I48.0 Paroxysmal atrial fibrillation; C44.309 Unspecified malignant neoplasm of skin of other parts of face; I11.0 Hypertensive heart disease with heart failure; E03.9 Hypothyroidism, unspecified; I89.0 Lymphedema, not elsewhere classified; K21.9 Gastro-esophageal reflux disease without esophagitis; M10.9 Gout, unspecified; L68.0 Hirsutism; E78.00 Pure hypercholesterolemia, unspecified; Z82.49 Family history of ischemic heart disease and other diseases of the circulatory system; Z82.3 Family history of stroke; Z79.02 Long term (current) use of antithrombotics/antiplatelets; Z85.40 Personal history of malignant neoplasm of unspecified female genital organ; Z79.01 Long term (current) use of anticoagulants; Z82.0 Family history of epilepsy and other diseases of the nervous system

== ENCOUNTER → 2017-02-22 | Outpatient (CLI) | payer OTHER ==
[~2017-02-22] MED LIST changes: +BUME1TAB PO; +CLIN300C2 PO; +CPR500 PO; +LISI-461 PO; +MCRB100 PO; -MCTP EXT; +METO100T44 PO; -MULT-845 PO; -RIVA1TAB4 PO; -TPRSR50 PO; +XRL20 PO; -ZLF/50 PO
[2017-02-22 17:49] LABS: BLOOD UREA NITROGEN 22 mg/dl (7-18); BUN/CREATININE RATIO 17.2 (10-20); CALCIUM 8.5 mg/dl (8.5-10.1); CARBON DIOXIDE 38 mmol/L (21-32); CHLORIDE 96 mmol/L (98-107); GLUCOSE 279 mg/dl (70-99); POTASSIUM 3.8 mmol/L (3.5-5.1); SODIUM 138 mmol/L (136-145)
== END | disposition home or self-care (01) ==
LOC: C.LAB1850 16:34
PROVIDERS: ATTEND Physician Assistant
DX: I50.32 Chronic diastolic (congestive) heart failure (principal)

== ENCOUNTER → 2017-02-28 | Outpatient (CLI) | payer OTHER ==
--- NOTE | 2017-02-28 08:37 | DIAGNOSTIC IMAGING REPORT ---
CHEST 2 VIEWS ROUTINE CLINICAL HISTORY: PLEURAL EFFUSION COMPARISON STUDY: 6017 FINDINGS: The heart remains enlarged. There is mild central vascular prominence without evidence of overt failure. There is a small subchronic right pleural effusion. There are mild basilar atelectatic changes.[ IMPRESSION: Cardiomegaly, small right pleural effusion, and mild basilar atelectasis. The findings remain similar to the preceding examination Electronically signed by: Jacob Horan M.D. 02/28/2017 8:35 AM Dictated Date/Time: 02/28/2017 8:35 AM
== END | disposition home or self-care (01) ==
LOC: C.RADPV 07:55
PROVIDERS: ATTEND Surgery
DX: J90 Pleural effusion, not elsewhere classified (principal)

== ENCOUNTER 2017-03-09 15:00 | Inpatient (IN) | payer OTHER ==
[~2017-03-09] VITALS: Ht 157.5 cm; Wt 137.6 kg
[~2017-03-09 15:00] MED LIST changes: -BUME1TAB PO; -CLIN300C2 PO
--- NOTE | 2017-03-09 16:16 | DIAGNOSTIC IMAGING REPORT ---
RIGHT FOOT 3 VIEWS CLINICAL HISTORY: Diabetic. Foot pain. Swelling and erythema. Sore on the second toe. Clinical concern for osteomyelitis. FINDINGS: 3 views of the right foot are obtained. No prior studies are available for comparison at the time of dictation. The skeletal structures are osteopenic. No fracture is seen. No bony erosion or periostitis is identified. Mild arthritic change is noted at the first metatarsophalangeal joint. Arthritic change is also seen involving the intertarsal and tarsometatarsal joints. A large enthesophyte is noted at the base of the fifth metatarsal. There are large dorsal and plantar calcaneal enthesophytes. Degenerative spurring is seen along the dorsal aspect of the tarsal bones. There is diffuse soft tissue edema seen throughout the foot. No subcutaneous gas or radiodense foreign body is identified. IMPRESSION: 1. Diffuse soft tissue edema with no acute bony abnormality identified. 2. No radiodense foreign body is seen. 3. Osteopenia, large heel spurs, and arthritic change as above. Electronically signed by: Ryan Montero M.D. 03/09/2017 4:15 PM Dictated Date/Time: 03/09/2017 4:12 PM
[2017-03-09 17:17] LABS: BASO % 0.8 %; BASO ABS # 0.06 K/uL (0-0.2); COMPLETE YES; EOS % 3.5 %; HEMATOCRIT 41.1 % (37-47); IG% 0.3 %; LYMPH ABS # 1.18 K/uL (1.2-3.4); MEAN CELL VOLUME 87.1 fL (80-100); MEAN CORPUSCULAR HEMOGLOBIN 28.4 pg (25-34); MEAN CORPUSCULAR HGB CONC 32.6 g/dl (32-36); MEAN PLATELET VOLUME 9.4 fL (7.4-10.4); MONO % 7.5 %; NEUT % 71.9 %; PLATELET COUNT 189 K/uL (130-400); RED BLOOD COUNT 4.72 M/uL (4.2-5.4); WHITE BLOOD COUNT 7.38 K/uL (4.8-10.8)
[2017-03-09] MEDS ORDERED: BUME1TAB PO (17:23)
[2017-03-09 17:28] LABS: INR 1.1 (0.9-1.1); PARTIAL THROMBOPLASTIN RATIO 1.2; PROTHROMBIN TIME (PATIENT) 12.1 SECONDS (9.0-12.0)
[2017-03-09 17:34] LABS: BLOOD UREA NITROGEN 20 mg/dl (7-18); BUN/CREATININE RATIO 17.9 (10-20); CALCIUM 9.5 mg/dl (8.5-10.1); CARBON DIOXIDE 34 mmol/L (21-32); CHLORIDE 96 mmol/L (98-107); GLUCOSE 143 mg/dl (70-99); SODIUM 137 mmol/L (136-145); URIC ACID 5.8 mg/dl (2.6-7.2)
[2017-03-09] MEDS ORDERED: VANCOMYCIN INJ 1,000 MG in SODIUM CHLORIDE 0.9% 250ML 250 ML IV STA (17:45)
--- NOTE | 2017-03-09 18:03 | EMERGENCY ROOM VISIT NOTE ---
History Report prepared by Jose: Rocio Lerma Under the Supervision of: Dr. Beau Rico M.D. First contact with patient: 15:27 Chief Complaint: TOE PAIN, INJURY Stated Complaint: SORE TOE History of Present Illness The patient is a 71 year old female who presents to the Emergency Room with complaints of constant pain to right 2nd toe beginning last night. She states that the pain began last night and the toe was red in color. The patient states that for the past 40 years she has been wearing compression stockings. She states that yesterday she noticed a burning sensation to the toe when she was wearing the stockings. The patient denies fevers, vomiting, or pain to her right leg and foot. She notes only pain to the 2nd right toe. 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 She denies any injury. Source of History: patient Onset: last night Position: toe(s) (2nd right) Symptom Intensity: mild Quality: burning Timing: constant Associated Symptoms: No fevers, No vomiting Note: The patient denies pain to her right leg or right foot. Review of Systems See HPI for pertinent positives & negatives. A total of 10 systems reviewed and were otherwise negative. Past Medical & Surgical Medical Problems: (1) Acquired lymphedema (2) Acute on chronic CHF exacerbation, core pulmonale (3) Atrial flutter (4) CHF exacerbation (5) Congestive heart failure (6) Diab W Oth Coma, Type I [Juvenile Type], Uncontrolled (7) Diabetes mellitus type 2, uncontrolled (8) Endometrial cancer (9) Epistaxis (10) Hypertension Nos (11) Hypertension Nos (12) Hypothyroidism (13) Hypoxia (14) Morbid obesity (15) Obesity (16) Pleural effusion (17) Sciatica (18) UTI (urinary tract infection) (19) Weakness Surgical Problems: (1) S/P thoracentesis Family History FH: Alzheimers disease Hypertension Stroke Social History Smoking Status: Never Smoker Alcohol Use: none Drug Use: none Marital Status: Housing Status: lives with family Occupation Status: retired Current/Historical Medications Scheduled Allopurinol (Zyloprim), 100 MG PO DAILY AT 1200 Arformoterol Tartrate (Brovana), 15 MCG INH BID Atorvastatin (Lipitor), 40 MG PO QPM Bumetanide (Bumex), 1 MG PO BID Cholecalciferol (Vitamin D3), 2,000 INTER.UNIT PO DAILY Diltiazem Hcl Extended Release (Diltiazem Hcl), 240 MG PO QAM Fluticasone Propionate (Flovent Hfa), 1 PUFFS INH BID Home O2 Therapy (Oxygen), 3 LITERS NA CONTINOUS Hydrocortisone 1% (Hydrocortisone 1%), 1 APPL TOP BID Insulin Lispro Protamine & Lis (Humalog Mix 75/25 Kwikpen), 80 UNITS SQ Q12 Levothyroxine Sodium (Levothyroxine Sodium), 50 MCG PO QAM Magnesium Oxide (Mag-Ox), 400 MG PO DAILY AT NOON Metoprolol Succ (Toprol Xl) (Toprol-Xl ), 100 MG PO DAILY Potassium Chloride (Klor-Con M20), 20 MEQ PO BID Rivaroxaban (Xarelto), 20 MG PO QDD Triamcinolone Acetonide (Topic (Triamcinolone Acet 0.025%), 1 APPLN EXT BID Scheduled PRN Alprazolam (Xanax), 0.5 MG PO BID PRN for Anxiety Eflornithine Hcl (Vaniqa), 1 APPLN TOP BID PRN for Hirsutism Allergies Coded Allergies: Mineral Oil (Verified Allergy, Intermediate, LEGS SWELL, 03/09/17) Penicillins (Verified Allergy, Intermediate, HIVES, 03/09/17) Petrolatum (Verified Allergy, Intermediate, LEGS SWELL, 03/09/17) Metronidazole (Verified Adverse Reaction, Unknown, NAUSEA, 03/09/17) Physical Exam Vital Signs Date Time Temp Pulse Resp B/P (MAP) Pulse Ox O2 Delivery O2 Flow Rate FiO2 03/09/17 17:21 61 20 142/60 99 Nasal Cannula 3.0 03/09/17 15:09 36.7 67 18 150/64 98 Nasal Cannula Physical Exam Constitutional: Vital signs reviewed. Eyes: Pupils are equal round reactive to light. Conjunctiva are noninjected. ENT: Pharynx is clear without erythema or exudate. Mucous membranes are moist. Neck supple without meningeal signs. Respiratory: Clear to auscultation bilaterally. Breath sounds are equal bilaterally. Cardiovascular: Regular rate and rhythm. No rubs or gallops. GI: Soft, nondistended and nontender. Bowel sounds are present. Musculoskeletal: Bilateral lower extremity edema. There is redness and increased warmth to the dorsum of the right foot extending into the toes, especially the second toe. There is callus and necrosis to the tip of the toe. Both of her calves bilaterally have erythema on top of chronic venous stasis discoloration. There is increased warmth as well. Integumentary: As above. Neurological: The patient is awake and alert. No focal deficits. Psychiatric: Normal affect. Medical Decision & Procedures ER Provider Diagnostic Interpretation: X-ray results as stated below per interpretation by me and the radiologist: RIGHT FOOT 3 VIEWS CLINICAL HISTORY: Diabetic. Foot pain. Swelling and erythema. Sore on the second toe. Clinical concern for osteomyelitis. FINDINGS: 3 views of the right foot are obtained. No prior studies are available for comparison at the time of dictation. The skeletal structures are osteopenic. No fracture is seen. No bony erosion or periostitis is identified. Mild arthritic change is noted at the first metatarsophalangeal joint. Arthritic change is also seen involving the intertarsal and tarsometatarsal joints. A large enthesophyte is noted at the base of the fifth metatarsal. There are large dorsal and plantar calcaneal enthesophytes. Degenerative spurring is seen along the dorsal aspect of the tarsal bones. There is diffuse soft tissue edema seen throughout the foot. No subcutaneous gas or radiodense foreign body is identified. IMPRESSION: 1. Diffuse soft tissue edema with no acute bony abnormality identified. 2. No radiodense foreign body is seen. 3. Osteopenia, large heel spurs, and arthritic change as above. Electronically signed by: Ryan Montero M.D. 03/09/2017 4:15 PM Dictated Date/Time: 03/09/2017 4:12 PM Laboratory Results 03/09/17 17:00 Red Blood Count 4.72, Mean Corpuscular Volume 87.1, Mean Corpuscular Hemoglobin 28.4, Mean Corpuscular Hemoglobin Concent 32.6, Mean Platelet Volume 9.4, Neutrophils (%) (Auto) 71.9, Lymphocytes (%) (Auto) 16.0, Monocytes (%) (Auto) 7.5, Eosinophils (%) (Auto) 3.5, Basophils (%) (Auto) 0.8, Neutrophils # (Auto) 5.31, Lymphocytes # (Auto) 1.18, Monocytes # (Auto) 0.55, Eosinophils # (Auto) 0.26, Basophils # (Auto) 0.06 03/09/17 17:00 Test 03/09/17 17:00 White Blood Count 7.38 K/uL (4.8-10.8) Red Blood Count 4.72 M/uL (4.2-5.4) Hemoglobin 13.4 g/dL (12.0-16.0) Hematocrit 41.1 % (37-47) Mean Corpuscular Volume 87.1 fL (80-100) Mean Corpuscular Hemoglobin 28.4 pg (25-34) Mean Corpuscular Hemoglobin Concent 32.6 g/dl (32-36) Platelet Count 189 K/uL (130-400) Mean Platelet Volume 9.4 fL (7.4-10.4) Neutrophils (%) (Auto) 71.9 % Lymphocytes (%) (Auto) 16.0 % Monocytes (%) (Auto) 7.5 % Eosinophils (%) (Auto) 3.5 % Basophils (%) (Auto) 0.8 % Neutrophils # (Auto) 5.31 K/uL (1.4-6.5) Lymphocytes # (Auto) 1.18 K/uL (1.2-3.4) Monocytes # (Auto) 0.55 K/uL (0.11-0.59) Eosinophils # (Auto) 0.26 K/uL (0-0.5) Basophils # (Auto) 0.06 K/uL (0-0.2) RDW Standard Deviation 53.2 fL (36.4-46.3) RDW Coefficient of Variation 16.5 % (11.5-14.5) Immature Granulocyte % (Auto) 0.3 % Immature Granulocyte # (Auto) 0.02 K/uL (0.00-0.02) Prothrombin Time 12.1 SECONDS (9.0-12.0) Prothromb Time International Ratio 1.1 (0.9-1.1) Activated Partial Thromboplast Time 32.0 SECONDS (21.0-31.0) Partial Thromboplastin Ratio 1.2 Anion Gap 7.0 mmol/L (3-11) Estimated GFR () 58.1 Estimated GFR (Non- 50.1 BUN/Creatinine Ratio 17.9 (10-20) Uric Acid 5.8 mg/dl (2.6-7.2) Calcium Level 9.5 mg/dl (8.5-10.1) Laboratory results as reviewed by me. ED Course 152: The patient was evaluated in room B5. A complete history and physical exam was performed. 1742: I discussed test results with the patient. She has agreed to admission. 1744: Vancomycin HCl 1,000 mg/ Sodium Chloride 270 ml @ 125 mls/hr IV. 1748: [place] [facility] [place] discussed the patient and her results. The patient will be further evaluated by Dr. Bakari HERNANDEZ. Medical Decision this is a 71-year-old female presents with redness and pain to the right foot. Differential diagnosis includes cellulitis, osteomyelitis, abscess, vasculitis, gout. I did perform a limited focused review of portions of the patient's old chart on the electronic medical record. The patient was discharged February 16 for heart failure. Medication Reconciliation: I attest that I have personally reviewed the patient' s current medication list. Blood Pressure Screening: Patient was found to have an elevated blood pressure and was referred to their primary doctor for recheck and further treatment. I did evaluate the patient as noted above. IV access was established. I did order and personally review the patient's right foot x-rays as described above. Blood culture was obtained. I did order and review the patient's blood work as noted in the electronic medical record. I did discuss the test results with the patient. I did recommend hospitalization for further care and evaluation and IV antibiotics. I did order an MRSA nasal swab. I did treat the patient with vancomycin IV. 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 Consults Time Called: 1744 Consulting Physician: Dr. Bakari HERNANDEZ Returned Call: [address] [place] [facility] [place] discussed the patient and her results. The patient will be further evaluated by Dr. Bakari HERNANDEZ. Impression Primary Impression: Cellulitis of right foot Scribe Attestation The scribe's documentation has been prepared under my direct and personally reviewed by me in its entirety. I confirm that the note above accurately reflects all work, treatment, procedures, and medical decision making performed by me. Departure Information Dispostion Being Evaluated By Hospitalist Referrals No Doctor, Assigned (PCP)
[2017-03-09] MEDS ORDERED: GLUCOSE 10 TABS/TUBE PO PRN (18:45)
[2017-03-09] MEDS ORDERED: DEXTROSE 50% 50 ML SYR IV PRN (18:45)
[2017-03-09] MEDS ORDERED: ACETAMINOPHEN 325 MG TAB PO PRN (18:45)
[2017-03-09] MEDS ORDERED: ONDANSETRON INJ 2 MG/ML 2 ML VIAL IV PRN (18:45)
[2017-03-09] MEDS ORDERED: ALPRAZOLAM 0.5 MG TAB PO PRN (18:45)
[2017-03-09] MEDS ORDERED: GLUCOSE 40% GEL 15 GM TUBE PO PRN (18:45)
[2017-03-09] MEDS ORDERED: MAGNESIUM HYDROXIDE SUSP 30 ML UDC PO PRN (18:45)
[2017-03-09] MEDS ORDERED: GLUCAGON FOR INJ 1 MG VIAL SQ PRN (18:45)
--- NOTE | 2017-03-09 19:00 | History and Physical ---
History & Physical Date & Time of Service: Mar 09, 2017 at 18:47 Chief Complaint: Sore Toe Primary Care Physician: Maxine Roberts M.D. History of Present Illness Source: patient, spouse 71 y/o F c/o R 2nd toe burning. Pt states that she always has redness on her lower legs due to hx of chronic lymphedema, but not generally on her feet. She states that she had a doctor's appt yesterday afternoon and that the doctor was running behind so she ended up out of her home in her compression stockings longer than usual. Her feet were hot and sweating at this time. Usually she would take off the stocking to help dry them off, but due to the appt, she could not do that. After she returned home, she states that her R 2nd toe was red and burning. This had not been the case prior. The redness has spread to the bridge of the foot, but not the ankle. states that on he pulled off a piece of dark brown tissue from the lateral aspect of the second toe. "It mostly just fell off." Even though there was more brown/black tissue , he was concerned that this was not going to fall off as readily so he did not attempt to remove it. Pt denies trauma to the toe or new shoes. She does not remember seeing a blister. She can move her toes without pain. She feels she has good sensation to her feet generally. Pt notes that the 3rd digit has just started to burn also. Pt notes her BS have been more elevated for the last 4 days. She did eat prior to coming to the ED and feels that her current BS is much better than they have been. Pt denies fever, SOB, chest pain, abd pain, n/v/c/d, LE swelling. Past Medical/Surgical History Medical Problems: (1) Acquired lymphedema Status: Chronic (2) Atrial flutter Status: Chronic (3) CHF exacerbation Status: Resolved (4) Congestive heart failure Status: Chronic (5) Diab W Oth Coma, Type I [Juvenile Type], Uncontrolled Status: Chronic (6) Diabetes mellitus type 2, uncontrolled Status: Chronic (7) Endometrial cancer Status: Resolved (8) Epistaxis Status: Resolved (9) Hypertension Nos Status: Chronic (10) Hypothyroidism Status: Chronic (11) Hypoxia Status: Chronic (12) Morbid obesity Status: Chronic (13) Obesity Status: Chronic (14) Sciatica Status: Chronic Surgical Problems: (1) S/P thoracentesis Status: Resolved Family History Family history was reviewed; no changes noted. Social History Smoking Status: Never Smoker Alcohol Use: none Drug Use: none Marital Status: Housing status: lives with family, care home Occupational Status: retired Immunizations History of Influenza Vaccine: Unknown Influenza Vaccine Date: Jul 25, 2012 History of Tetanus Vaccine?: Unknown History of Pneumococcal: Unknown History of Hepatitis B Vaccine: Unknown Multi-Drug Resistant Organisms History of MDRO: No Allergies Coded Allergies: Mineral Oil (Verified Allergy, Intermediate, LEGS SWELL, 03/09/17) Penicillins (Verified Allergy, Intermediate, HIVES, 03/09/17) Petrolatum (Verified Allergy, Intermediate, LEGS SWELL, 03/09/17) Metronidazole (Verified Adverse Reaction, Unknown, NAUSEA, 03/09/17) Home Medications Scheduled Allopurinol (Zyloprim), 100 MG PO DAILY AT 1200 Arformoterol Tartrate (Brovana), 15 MCG INH BID Atorvastatin (Lipitor), 40 MG PO QPM Bumetanide (Bumex), 1 MG PO BID Cholecalciferol (Vitamin D3), 2,000 INTER.UNIT PO DAILY Diltiazem Hcl Extended Release (Diltiazem Hcl), 240 MG PO QAM Fluticasone Propionate (Flovent Hfa), 1 PUFFS INH BID Home O2 Therapy (Oxygen), 3 LITERS NA CONTINOUS Hydrocortisone 1% (Hydrocortisone 1%), 1 APPL TOP BID Insulin Lispro Protamine & Lis (Humalog Mix 75/25 Kwikpen), 80 UNITS SQ Q12 Levothyroxine Sodium (Levothyroxine Sodium), 50 MCG PO QAM Magnesium Oxide (Mag-Ox), 400 MG PO DAILY AT NOON Metoprolol Succ (Toprol Xl) (Toprol-Xl ), 100 MG PO DAILY Potassium Chloride (Klor-Con M20), 20 MEQ PO BID Rivaroxaban (Xarelto), 20 MG PO QDD Triamcinolone Acetonide (Topic (Triamcinolone Acet 0.025%), 1 APPLN EXT BID Scheduled PRN Alprazolam (Xanax), 0.5 MG PO BID PRN for Anxiety Eflornithine Hcl (Vaniqa), 1 APPLN TOP BID PRN for Hirsutism Review of Systems Reviewed and negative Physical Exam Vital Signs Date Time Temp Pulse Resp B/P (MAP) Pulse Ox O2 Delivery O2 Flow Rate FiO2 03/09/17 17:21 61 20 142/60 99 Nasal Cannula 3.0 03/09/17 15:09 36.7 67 18 150/64 98 Nasal Cannula General Appearance: no apparent distress, + obese Head: normocephalic, atraumatic Eyes: normal inspection, sclerae normal Respiratory/Chest: normal breath sounds, no respiratory distress Cardiovascular: regular rate, rhythm, no edema Abdomen/GI: non tender, soft Extremities/Musculoskelatal: no calf tenderness, no pedal edema Neurologic/Psych: alert, oriented x 3 Skin: warm/dry, + pertinent finding (R 2nd toe with necrotic appearing tissue on the tip, redness to the 2nd toe and bridge of foot, increased temp, redness to b/l LE c/w chronic skin changes) Diagnostics Laboratory Results Results Past 24 Hours Test 03/09/17 17:00 Range/Units White Blood Count 7.38 4.8-10.8 K/uL Red Blood Count 4.72 4.2-5.4 M/uL Hemoglobin 13.4 12.0-16.0 g/dL Hematocrit 41.1 37-47 % Mean Corpuscular Volume 87.1 80-100 fL Mean Corpuscular Hemoglobin 28.4 25-34 pg Mean Corpuscular Hemoglobin Concent 32.6 32-36 g/dl Platelet Count 189 130-400 K/uL Mean Platelet Volume 9.4 7.4-10.4 fL Neutrophils (%) (Auto) 71.9 % Lymphocytes (%) (Auto) 16.0 % Monocytes (%) (Auto) 7.5 % Eosinophils (%) (Auto) 3.5 % Basophils (%) (Auto) 0.8 % Neutrophils # (Auto) 5.31 1.4-6.5 K/uL Lymphocytes # (Auto) 1.18 1.2-3.4 K/uL Monocytes # (Auto) 0.55 0.11-0.59 K/uL Eosinophils # (Auto) 0.26 0-0.5 K/uL Basophils # (Auto) 0.06 0-0.2 K/uL RDW Standard Deviation 53.2 36.4-46.3 fL RDW Coefficient of Variation 16.5 11.5-14.5 % Immature Granulocyte % (Auto) 0.3 % Immature Granulocyte # (Auto) 0.02 0.00-0.02 K/uL Prothrombin Time 12.1 9.0-12.0 SECONDS Prothromb Time International Ratio 1.1 0.9-1.1 Activated Partial Thromboplast Time 32.0 21.0-31.0 SECONDS Partial Thromboplastin Ratio 1.2 Sodium Level 137 136-145 mmol/L Potassium Level 4.0 3.5-5.1 mmol/L Chloride Level 96 98-107 mmol/L Carbon Dioxide Level 34 21-32 mmol/L Anion Gap 7.0 3-11 mmol/L Blood Urea Nitrogen 20 7-18 mg/dl Creatinine 1.10 0.60-1.20 mg/dl Estimated GFR () 58.1 Estimated GFR (Non- 50.1 BUN/Creatinine Ratio 17.9 10-20 Random Glucose 143 70-99 mg/dl Uric Acid 5.8 2.6-7.2 mg/dl Calcium Level 9.5 8.5-10.1 mg/dl Microbiology Results 03/09/17 Blood Culture, Received Pending 03/09/17 MRSA DNA Surveillance Screen, Received Pending Diagnostic Radiology R foot XR: neg for bony involvement Impression Assessment and Plan 71 y/o F who was admitted on 03/09 with R LE cellulitis R LE cellulitis: XR as noted Started on vanco in the ED, will continue Blood cx pending Mg pending WBC WNL, afebrile Wound care pending Holding IVF given good PO intake due to hx of CHF with recent thoracentesis DM: SSI PRN Holding home insulin A1c 7.4 (01/04/17) Afib: continue home meds, including xarelto COPD: continue home O2 at baseline 3L and scheduled nebs dCHF: not in exacerbation, monitor on home lasix Recent thoracentesis x2, will need to be careful if IVF required Hypothyroid: TSH WNL 02/10/17 Other: DNI, but wishes for brief trial of chest compressions if needed. Quite specific that she does not want this to be prolonged. DM low sodium diet Xarelto for DVT proph Level of Care Med/Surg Resuscitation Status FULL NO MECH VENTILATION VTE Prophylaxis VTE Risk Assessment Done? Y/N: Yes Risk Level: Low
[2017-03-09] MEDS ORDERED: NovoLOG PER UNIT CHARGE ONE (20:08)
[2017-03-09] MEDS ORDERED: PATIENT'S HEIGHT AND/OR WEIGHT NEEDED SCH (20:30)
[2017-03-09] MEDS: FLUTICASONE PROP HFA INH 44 MCG INHALER INH SCH (21:22)
[2017-03-09] MEDS: POTASSIUM CHLORIDE 20 MEQ TABCR PO SCH (21:24)
[2017-03-09] MEDS: ATORVASTATIN 40 MG TAB PO SCH (21:24)
[2017-03-09] MEDS: BUMETANIDE 1 MG TAB PO SCH (21:24)
[2017-03-09] MEDS: HYDROCORTISONE 1% CR 30 GM TUBE EXT SCH (21:25)
[2017-03-09 21:37] VITALS: BP 138/70; PULSE 77; TEMP 36.7; O2SAT 92
[2017-03-09] MEDS: ARFORMOTEROL TART 15MCG/2ML VIAL INH SCH (21:49)
[2017-03-09 21:50] VITALS: PULSE 67; O2SAT 98
[2017-03-09] MEDS: INSULIN ASPART 100 UNITS/ML 3 ML PEN SC SCH (22:51)
[2017-03-09 23:58] VITALS: BP 123/67; PULSE 63; TEMP 36.6; O2SAT 97
[2017-03-10] MEDS ORDERED: VANCOMYCIN INJ 2,000 MG in SODIUM CHLORIDE 0.9% 500ML 500 ML IV ONE (00:30)
[2017-03-10 01:41] VITALS: Ht 157.5 cm; Wt 137.6 kg
[2017-03-10] MEDS ORDERED: VANCOMYCIN CONSULT ACTIVE PRN (03:30)
[2017-03-10] MEDS: LEVOTHYROXINE 50 MCG TAB PO SCH (06:33)
[2017-03-10 07:00] VITALS: BP 125/69; PULSE 67; TEMP 36.5; O2SAT 98
[2017-03-10 07:18] VITALS: PULSE 69; O2SAT 96
[2017-03-10] MEDS: ARFORMOTEROL TART 15MCG/2ML VIAL INH SCH ×2 (07:18→19:51)
[2017-03-10] MEDS: HYDROCORTISONE 1% CR 30 GM TUBE EXT SCH ×2 (08:00→21:20)
[2017-03-10] MEDS: POTASSIUM CHLORIDE 20 MEQ TABCR PO SCH ×2 (08:28→21:22)
[2017-03-10] MEDS: CHOLECALCIFEROL 1000 INTER.UNIT TAB PO SCH (08:28)
[2017-03-10] MEDS: BUMETANIDE 1 MG TAB PO SCH ×2 (08:28→17:10)
[2017-03-10] MEDS: METOPROLOL SUCC 50MG EXT REL TAB PO SCH (08:28)
[2017-03-10] MEDS: DILTIAZEM HCL 240 MG CAPCR PO SCH (08:29)
[2017-03-10] MEDS: FLUTICASONE PROP HFA INH 44 MCG INHALER INH SCH ×2 (08:29→21:21)
[2017-03-10] MEDS: INSULIN ASPART 100 UNITS/ML 3 ML PEN SC SCH ×4 (08:32→21:24)
[2017-03-10] MEDS ORDERED: INSULIN GLARGINE SOLOSTAR 100 UNITS/ML 3 ML PEN SC ONE (11:20)
[2017-03-10] MEDS: MAGNESIUM OXIDE 400 MG TAB PO SCH (12:28)
[2017-03-10] MEDS: ALLOPURINOL 100 MG TAB PO SCH (12:28)
--- NOTE | 2017-03-10 12:35 | Progress Note ---
Subjective Date of Service: Mar 10, 2017. Subjective Pt evaluation today including: conversation w/ patient, conversation w/ family , physical exam, chart review, lab review, review of studies, review of inpatient medication list foot burning not much as far as pain just burning. can feel things OK dosen't really hurt to walk on no f/c/s notes that the dark thick skin area on the bottom of her toe has been there a few weeks, but redness just started late saturday. redness on foot is much better mostly just redness R second toe now. notes sugars have been graduallly getting higher last ~2wks or so no problems w CHF right now, feels other medical issues are stable at this time Problem List Medical Problems: (1) Abdominal pain, epigastric Status: Acute (2) Acute bronchitis Status: Acute (3) Bleeding Status: Acute (4) Cellulitis of right foot Status: Acute (5) Congestive heart failure Status: Chronic (6) Failure of outpatient treatment Status: Acute (7) Generalized weakness Status: Acute (8) Pneumonia Status: Acute (9) Pneumonia Status: Acute (10) Sinusitis Status: Acute (11) SOB (shortness of breath) Status: Acute Review of Systems ROS otherwise negative except for as above Objective Vital Signs Date Time Temp Pulse Resp B/P (MAP) Pulse Ox O2 Delivery O2 Flow Rate FiO2 03/10/17 08:00 Nasal Cannula 3.0 03/10/17 07:18 69 16 96 Nasal Cannula 3.0 03/10/17 07:00 36.5 67 18 125/69 (87) 98 3.0 03/10/17 00:00 Nasal Cannula 3.0 03/09/17 23:58 36.6 63 18 123/67 (85) 97 3.0 03/09/17 21:50 67 16 98 Nasal Cannula 3.0 03/09/17 21:37 36.7 77 18 138/70 (92) 92 Room Air 03/09/17 19:08 85 16 159/66 97 Nasal Cannula 2.0 03/09/17 17:21 61 20 142/60 99 Nasal Cannula 3.0 03/09/17 15:09 36.7 67 18 150/64 98 Nasal Cannula Physical Exam General Appearance: no apparent distress Eyes: EOMI ENT: hearing grossly normal Neck: trachea midline Respiratory/Chest: no respiratory distress, no accessory muscle use Extremities: + pertinent finding (chronic venous stasis changes b/l LE, see skin for R 2nd toe) 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, alert, normal mood/affect Skin: + pertinent finding (R second toe small eschar with what appears to be black tissue underneath, toe diffusely erythematous, dorsum of foot blotchy erythema (appears likely is resolving erythema based on prior descriptions)) Laboratory Results Last 24 Hours Test 03/09/17 17:00 03/09/17 20:05 03/09/17 22:29 03/10/17 07:33 White Blood Count 7.38 K/uL Red Blood Count 4.72 M/uL Hemoglobin 13.4 g/dL Hematocrit 41.1 % Mean Corpuscular Volume 87.1 fL Mean Corpuscular Hemoglobin 28.4 pg Mean Corpuscular Hemoglobin Concent 32.6 g/dl Platelet Count 189 K/uL Mean Platelet Volume 9.4 fL Neutrophils (%) (Auto) 71.9 % Lymphocytes (%) (Auto) 16.0 % Monocytes (%) (Auto) 7.5 % Eosinophils (%) (Auto) 3.5 % Basophils (%) (Auto) 0.8 % Neutrophils # (Auto) 5.31 K/uL Lymphocytes # (Auto) 1.18 K/uL Monocytes # (Auto) 0.55 K/uL Eosinophils # (Auto) 0.26 K/uL Basophils # (Auto) 0.06 K/uL RDW Standard Deviation 53.2 fL RDW Coefficient of Variation 16.5 % Immature Granulocyte % (Auto) 0.3 % Immature Granulocyte # (Auto) 0.02 K/uL Prothrombin Time 12.1 SECONDS Prothromb Time International Ratio 1.1 Activated Partial Thromboplast Time 32.0 SECONDS Partial Thromboplastin Ratio 1.2 Sodium Level 137 mmol/L Potassium Level 4.0 mmol/L Chloride Level 96 mmol/L Carbon Dioxide Level 34 mmol/L Anion Gap 7.0 mmol/L Blood Urea Nitrogen 20 mg/dl Creatinine 1.10 mg/dl Estimated GFR () 58.1 Estimated GFR (Non- 50.1 BUN/Creatinine Ratio 17.9 Random Glucose 143 mg/dl Uric Acid 5.8 mg/dl Calcium Level 9.5 mg/dl Magnesium Level 1.8 mg/dl Bedside Glucose 159 mg/dl 230 mg/dl 240 mg/dl Test 03/10/17 11:34 Bedside Glucose 257 mg/dl Assessment and Plan 71 y/o F who was admitted on 03/09 with R LE cellulitis R LE cellulitis: continue vanco Blood cx pending - no growth to date no current s/s sepsis but does appear worrisome for vascular insufficiency now that dorsum of foot has improved but toe still quite erythematous -check arterial dopplers -A1c in december 7.4, lipids in december adequately suppressed -add aspirin, if dopplers look surprisingly reassuring, can consider dc, but likely will benefit -d/w wound nurse and will consult wound care physician as debridement likely to be needed Holding IVF given good PO intake due to hx of CHF with recent thoracentesis DM: SSI PRN Holding home insulin A1c 7.4 (01/04/17) add lantus -home insulin 75/25 80 bid, suspect diet much different here, keep carb ratio at 1:5 Afib: continue home meds, including xarelto, rate controlled COPD: continue home O2 at baseline 3L and scheduled nebs diastolic CHF: not in exacerbation, monitor on home lasix Recent thoracentesis x2, will need to be careful if IVF required, but currently none Hypothyroid: TSH WNL 02/10/17 Other: DNI, but wishes for brief trial of chest compressions if needed. Quite specific that she does not want this to be prolonged. DM low sodium diet Xarelto for DVT proph
--- NOTE | 2017-03-10 13:53 | Pharmacy Progress Note ---
Pharmacy Abx Initial Consult Date of Service Mar 10, 2017. Pharmacy Dosing Scope Date of Consult: 03/09/17 Consultation requested by: Dr. Viky Villegas Pharmacy is consulted to initiate Vancomycin IV dosing therapy for a right lower extremity cellulitis in an obese patient (BMI greater than 35kg/m2; BMI= 56kg/m2), order appropriate labs and adjust drug dose/frequency. Subjective The patient is a 71 year old female admitted on Mar 09, 2017 at 18:43. Objective Height (Feet): 5 Height (Inches): 2.00 Weight (Kilograms): 137.600 Vital Signs (Past 12Hrs) Vital Signs Past 12 Hours Date Time Temp Pulse Resp B/P (MAP) Pulse Ox O2 Delivery O2 Flow Rate FiO2 03/10/17 08:00 Nasal Cannula 3.0 03/10/17 07:18 69 16 96 Nasal Cannula 3.0 03/10/17 07:00 36.5 67 18 125/69 (87) 98 3.0 Lab Results (24Hrs) Laboratory Tests (24 Hours) Test 03/09/17 17:00 White Blood Count 7.38 K/uL (4.8-10.8) Red Blood Count 4.72 M/uL (4.2-5.4) Hemoglobin 13.4 g/dL (12.0-16.0) Hematocrit 41.1 % (37-47) Mean Corpuscular Volume 87.1 fL (80-100) Mean Corpuscular Hemoglobin 28.4 pg (25-34) Mean Corpuscular Hemoglobin Concent 32.6 g/dl (32-36) Platelet Count 189 K/uL (130-400) Mean Platelet Volume 9.4 fL (7.4-10.4) Neutrophils (%) (Auto) 71.9 % Lymphocytes (%) (Auto) 16.0 % Monocytes (%) (Auto) 7.5 % Eosinophils (%) (Auto) 3.5 % Basophils (%) (Auto) 0.8 % Neutrophils # (Auto) 5.31 K/uL (1.4-6.5) Lymphocytes # (Auto) 1.18 K/uL (1.2-3.4) L Monocytes # (Auto) 0.55 K/uL (0.11-0.59) Eosinophils # (Auto) 0.26 K/uL (0-0.5) Basophils # (Auto) 0.06 K/uL (0-0.2) Micro Results Date/Time Source Procedure Growth Status 03/09/17 16:55 Blood Blood Culture Pending Received 03/09/17 18:05 Nasal MRSA DNA Surveillance Screen - Final Specimen Positive for MRSA by DNA Probe Complete Risk Factors for Resistance * history of endometrial cancer Assessment & Plan Assessment 71 year old obese (BMI greater than 35kg/m2; BMI= 56kg/m2) female with a right lower extremity cellulitis. Plan Pharmacy has been consulted for treatment of right lower extremity cellulitis Vancomycin IV * Loading dose: 1000 mg in the ED PLUS 2000mg once the patient was admitted ( 22 mg/kg) * Maintenance dose: 1800 mg IV (13 mg/kg) every 18 hours * Due to patient's obesity, the maintenance dose has been altered to prevent Vancomycin accumulation while attempting to reach therapeutic concentrations. * Goal trough level for cellulitis : 15 mcg/mL * Trough level ordered for 03/12/17 ~30 minutes before the 0600 dose. * A less than traditional dose has been selected due to likelihood of drug accumulation in obese patient. Pharmacy will continue to follow and will adjust dose/frequency as necessary. Thank you.
--- NOTE | 2017-03-10 15:07 | DIAGNOSTIC IMAGING REPORT ---
ULTRASOUND ART DOP LOWER EXT BILAT CLINICAL HISTORY: R 2nd toe ulcer, DM ulcer. Pain. Claudication. COMPARISON STUDY: None Findings: Triphasic waveforms within the arterial structures of the thighs. Monophasic waveforms at within the popliteal as well as 3 runoff vessels bilaterally. Suggests significant stenosis with dampened flow the level of the popliteal arteries bilaterally. The following blood pressure indices were obtained. On the right, posterior tibial is 0.71 and dorsalis pedis is 0.74. On the left, posterior tibial is 0.71 and dorsalis pedis is 0.70. IMPRESSION: Rather significant arterial occlusive change bilaterally primarily at the popliteal arteries bilaterally with dampened waveforms of all 3 runoff vessels bilaterally Electronically signed by: Richie Bowen M.D. 03/10/2017 3:06 PM Dictated Date/Time: 03/10/2017 3:04 PM
[2017-03-10 15:08] VITALS: BP 160/75; PULSE 60; TEMP 36.4; O2SAT 100
[2017-03-10] MEDS: RIVAROXABAN 20 MG TAB PO SCH (17:10)
[2017-03-10] MEDS: LACTOBACILLUS ACIDOPHILUS (FLORANEX) TAB PO SCH (17:10)
[2017-03-10] MEDS: VANCOMYCIN INJ 1,800 MG in SODIUM CHLORIDE 0.9% 500ML 500 ML IV SCH (18:04)
[2017-03-10 19:52] VITALS: PULSE 72; O2SAT 98
[2017-03-10] MEDS: ATORVASTATIN 40 MG TAB PO SCH (21:22)
[2017-03-10 23:43] VITALS: BP 169/70; PULSE 70; TEMP 36.6; O2SAT 97
[2017-03-11] MEDS: LEVOTHYROXINE 50 MCG TAB PO SCH (06:40)
[2017-03-11 07:32] VITALS: BP 131/77; PULSE 62; TEMP 36.8; O2SAT 100
[2017-03-11 07:37] VITALS: PULSE 73; O2SAT 96
[2017-03-11] MEDS: ARFORMOTEROL TART 15MCG/2ML VIAL INH SCH ×2 (07:37→19:53)
[2017-03-11] MEDS: HYDROCORTISONE 1% CR 30 GM TUBE EXT SCH ×2 (07:45→21:07)
[2017-03-11] MEDS: DILTIAZEM HCL 240 MG CAPCR PO SCH (07:48)
[2017-03-11] MEDS: FLUTICASONE PROP HFA INH 44 MCG INHALER INH SCH ×2 (07:48→21:08)
[2017-03-11] MEDS: CHOLECALCIFEROL 1000 INTER.UNIT TAB PO SCH (07:48)
[2017-03-11] MEDS: POTASSIUM CHLORIDE 20 MEQ TABCR PO SCH ×2 (07:49→21:09)
[2017-03-11] MEDS: METOPROLOL SUCC 50MG EXT REL TAB PO SCH (07:49)
[2017-03-11] MEDS: LACTOBACILLUS ACIDOPHILUS (FLORANEX) TAB PO SCH ×3 (07:49→17:50)
[2017-03-11] MEDS: BUMETANIDE 1 MG TAB PO SCH ×2 (07:49→17:50)
[2017-03-11] MEDS: INSULIN ASPART 100 UNITS/ML 3 ML PEN SC SCH ×4 (08:20→21:18)
[2017-03-11] MEDS: INSULIN GLARGINE SOLOSTAR 100 UNITS/ML 3 ML PEN SC SCH (08:21)
[2017-03-11] MEDS ORDERED: NURSING VERBAL MED ORDER ONE (09:00)
[2017-03-11] MEDS ORDERED: COUGH DROP (SUGAR FREE) LOZ 24 LOZ/1 BOX PO PRN (09:15)
--- NOTE | 2017-03-11 10:21 | Clinical Documentation Query ---
CLINICAL DOCUMENTATION QUERY Dr. MATTSON, In your clinical opinion is this patient being managed for: ( X ) Chronic hypoxic respiratory failure ( ) Other explanation of clinical findings (Please Explain) ( ) Unable to determine (Please Define) ( ) Need to Discuss ( ) Not Agree The medical record reflects the following clinical findings, treatment, and risk factors. Clinical Indicators:54 yo female presenting with RLE cellulitis. H/P indicates pt wears chronic home O2 support. Treatment: chronic home O2, brovana Risk Factors:COPD, morbid obesity, chronic diastolic CHF Please clarify and document your clinical opinion in the progress notes and discharge summary. Terms such as "probable", "suspected", "likely", "questionable", "possible", or "still to be ruled out" are acceptable. IF IN AGREEMENT, YOU MUST DOCUMENT ABOVE DIAGNOSTIC STATEMENT IN DAILY PROGRESS NOTES AND DISCHARGE SUMMARY. This document is not part of the patient's record. Thank You, Aida Palmer RN [phone]
[2017-03-11] MEDS: MAGNESIUM OXIDE 400 MG TAB PO SCH (12:18)
[2017-03-11] MEDS: ALLOPURINOL 100 MG TAB PO SCH (12:18)
[2017-03-11] MEDS: VANCOMYCIN INJ 1,800 MG in SODIUM CHLORIDE 0.9% 500ML 500 ML IV SCH (12:18)
--- NOTE | 2017-03-11 12:59 | Hospitalist Progress Note ---
Hospitalist Progress Note Date of Service Mar 11, 2017. (Ariana Vital ., NANNETTEC) Subjective Pt evaluation today including: conversation w/ patient, conversation w/ family ( at bedside), physical exam, chart review, lab review, conversation w/ career development consultant (spoke with Dr. Sainz), review of inpatient medication list Pain: None PO Intake: Tolerating PO diet Voiding: no voiding problems Patient reports feeling better after debridement by Dr. Sainz. She states that the burning pain in her right toe is now resolved. She still complains of erythema and swelling in her right toes/dorsal foot, but the erythema is improved today compared to yesterday. The patient denies fevers, chills, sweats , chest pain, palpitations, claudication, cough, wheezing, shortness of breath, nausea, vomiting, abdominal pain, dysuria, hematuria, urinary retention, paralysis, weakness, numbness and tingling. Additional Comments: See HPI for pertinent positives and negatives. All other systems reviewed and negative. (Ariana Vital ., OSIEL-C) Objective Vital Signs Date Time Temp Pulse Resp B/P (MAP) Pulse Ox O2 Delivery O2 Flow Rate FiO2 03/11/17 08:15 Nasal Cannula 3.0 03/11/17 07:37 73 14 96 Nasal Cannula 3.0 03/11/17 07:32 36.8 62 20 131/77 (95) 100 2.0 03/11/17 00:00 Nasal Cannula 3.0 03/10/17 23:43 36.6 70 20 169/70 (103) 97 2.0 03/10/17 20:00 Nasal Cannula 3.0 03/10/17 19:52 72 16 98 Nasal Cannula 3.0 03/10/17 16:00 Nasal Cannula 3.0 03/10/17 15:08 36.4 60 18 160/75 (103) 100 (Ariana Vital, NANNETTEC) Physical Exam General Appearance: WD/WN, no apparent distress, + obese (morbidly obese) Eyes: normal inspection, PERRL, EOMI ENT: normal ENT inspection, hearing grossly normal, pharynx normal Neck: supple, no JVD, trachea midline Respiratory/Chest: normal breath sounds, no respiratory distress, + decreased breath sounds Cardiovascular: regular rate, rhythm, no gallop, no murmur Abdomen: normal bowel sounds, non tender, soft Extremities: non-tender, no calf tenderness, + swelling (2+ pitting edema lower extremities, 3+ pitting edema right foot. Erythema right 2nd toe and dorsum right foot. Right 2nd toe wrapped in gauze s/p debridement. Chronic lymphedema b/l) Neurologic/Psychiatric: alert, normal mood/affect, oriented x 3 Skin: normal color, warm/dry, no rash (Ariana Vital, NICOLETTE) Laboratory Results Last 24 Hours Test 03/10/17 16:04 03/10/17 20:04 03/11/17 07:40 03/11/17 11:31 Bedside Glucose 219 mg/dl 217 mg/dl 230 mg/dl 222 mg/dl (Ariana Vital PA-C) Assessment and Plan 71 y/o female with a history of atrial flutter, HTN, HLD, DM II, diastolic CHF, hypothyroidism, COPD, and gout who was admitted on 03/09 with R foot cellulitis. R foot cellulitis--improving -Admitted to med/surg -Continue vancomycin for now -BCx NGTD -Arterial dopplers show significant popliteal arterial occlusive changes bilaterally -Vascular surgery consulted, appreciate recs H/o atrial flutter -Continue Toprol 100 mg PO qd, diltiazem 240 mg PO qd and Xarelto 20 mg PO qd HTN--stable -Continue metoprolol and diltiazem as above HLD -Continue atorvastatin 40 mg PO qd Diabetes mellitus type 2--last hgbA1c checked 01/04/17 was 7.4 -Lantus 20 units SC qd added -Insulin sliding scale -Check BSGs q ac and qhs -A1c in december 7.4, lipids in december adequately suppressed -add aspirin, if dopplers look surprisingly reassuring, can consider dc, but likely will benefit -d/w wound nurse and will consult wound care physician as debridement likely to be needed Holding IVF given good PO intake due to hx of CHF with recent thoracentesis Diastolic CHF--stable, no signs of acute exacerbation -Continue Bumex 1 mg PO BID -Low sodium and diabetic diet Hypothyroidism -Continue Synthroid 50 mcg PO qd COPD -Continue Brovana, Flovent and O2 by protocol. On 3L continuous at home Gout -Continue allopurinol 100 mg PO qd DVT prophylaxis -Xarelto Code Status -Level III, FULL NO MECH VENTILATION (Ariana Vital ., PA-C) I agree with PA assessment and plan and have seen and examined pt myself VSS Labs reviewed Noted cellulitis of toe Wound care consulted for debridement Cont IV vanc at this time Consulted Dr Doss for abnormal art US LE (Gaetano Morgan, D.O.)
[2017-03-11 15:37] VITALS: BP 147/70; PULSE 63; TEMP 36.7; O2SAT 97
[2017-03-11] MEDS: RIVAROXABAN 20 MG TAB PO SCH (17:50)
[2017-03-11 19:54] VITALS: PULSE 68; O2SAT 97
[2017-03-11] MEDS: ATORVASTATIN 40 MG TAB PO SCH (21:09)
[2017-03-11 23:28] VITALS: BP 126/72; PULSE 70; TEMP 36.5; O2SAT 99
[2017-03-12] MEDS ORDERED: VANCOMYCIN TROUGH SCH (05:30)
[2017-03-12] MEDS: LEVOTHYROXINE 50 MCG TAB PO SCH (06:16)
[2017-03-12 06:53] LABS: BUN/CREATININE RATIO 21.7 (10-20); CREATININE 0.94 mg/dl (0.60-1.20); POTASSIUM 3.9 mmol/L (3.5-5.1)
[2017-03-12] MEDS: ARFORMOTEROL TART 15MCG/2ML VIAL INH SCH ×2 (07:27→19:36)
[2017-03-12 07:42] VITALS: PULSE 70; O2SAT 97
[2017-03-12] MEDS: VANCOMYCIN INJ 1,800 MG in SODIUM CHLORIDE 0.9% 500ML 500 ML IV SCH (07:51)
[2017-03-12] MEDS: FLUTICASONE PROP HFA INH 44 MCG INHALER INH SCH ×2 (08:00→20:43)
[2017-03-12 08:05] VITALS: BP 133/72; PULSE 63; TEMP 36.4; O2SAT 98
[2017-03-12] MEDS: CHOLECALCIFEROL 1000 INTER.UNIT TAB PO SCH (08:31)
[2017-03-12] MEDS: ALLOPURINOL 100 MG TAB PO SCH (08:31)
[2017-03-12] MEDS: LACTOBACILLUS ACIDOPHILUS (FLORANEX) TAB PO SCH ×3 (08:31→17:08)
[2017-03-12] MEDS: POTASSIUM CHLORIDE 20 MEQ TABCR PO SCH ×2 (08:32→20:44)
[2017-03-12] MEDS: METOPROLOL SUCC 50MG EXT REL TAB PO SCH (08:32)
[2017-03-12] MEDS: BUMETANIDE 1 MG TAB PO SCH ×2 (08:33→17:07)
[2017-03-12] MEDS: DILTIAZEM HCL 240 MG CAPCR PO SCH (08:33)
[2017-03-12] MEDS: HYDROCORTISONE 1% CR 30 GM TUBE EXT SCH ×2 (08:35→20:00)
[2017-03-12] MEDS: INSULIN ASPART 100 UNITS/ML 3 ML PEN SC SCH ×4 (08:44→20:48)
[2017-03-12] MEDS: INSULIN GLARGINE SOLOSTAR 100 UNITS/ML 3 ML PEN SC SCH (08:45)
[2017-03-12 08:58] LABS: BASO ABS # 0.05 K/uL (0-0.2); COMPLETE YES; EOS % 4.1 %; HEMATOCRIT 39.2 % (37-47); IG% 0.2 %; LYMPH % 24.4 %; MEAN CELL VOLUME 86.7 fL (80-100); MEAN CORPUSCULAR HEMOGLOBIN 27.9 pg (25-34); MEAN CORPUSCULAR HGB CONC 32.1 g/dl (32-36); MEAN PLATELET VOLUME 9.7 fL (7.4-10.4); MONO % 9.8 %; NEUT % 60.5 %; PLATELET COUNT 170 K/uL (130-400); RED BLOOD COUNT 4.52 M/uL (4.2-5.4); WHITE BLOOD COUNT 4.91 K/uL (4.8-10.8)
--- NOTE | 2017-03-12 09:13 | Pharmacy Progress Note ---
Pharmacy Abx Dose Progress Nt Date of Service Mar 12, 2017. Pharmacy Dosing Scope The patient is currently receiving the following antimicrobial agents per Pharmacy consult: Vancomycin 1800 mg IV every 18 hours Objective Height (Feet): 5 Height (Inches): 2.00 Weight (Kilograms): 137.600 Vital Signs (Past 12Hrs) Vital Signs Past 12 Hours Date Time Temp Pulse Resp B/P (MAP) Pulse Ox O2 Delivery O2 Flow Rate FiO2 03/12/17 08:05 36.4 63 20 133/72 (92) 98 3.0 03/12/17 07:42 70 12 97 Nasal Cannula 3.0 03/12/17 00:00 Nasal Cannula 3.0 03/11/17 23:28 36.5 70 18 126/72 (90) 99 Room Air Lab Results (24Hrs) Laboratory Tests (24 Hours) Test 03/12/17 05:54 White Blood Count 4.91 K/uL (4.8-10.8) Red Blood Count 4.52 M/uL (4.2-5.4) Hemoglobin 12.6 g/dL (12.0-16.0) Hematocrit 39.2 % (37-47) Mean Corpuscular Volume 86.7 fL (80-100) Mean Corpuscular Hemoglobin 27.9 pg (25-34) Mean Corpuscular Hemoglobin Concent 32.1 g/dl (32-36) Platelet Count 170 K/uL (130-400) Mean Platelet Volume 9.7 fL (7.4-10.4) Neutrophils (%) (Auto) 60.5 % Lymphocytes (%) (Auto) 24.4 % Monocytes (%) (Auto) 9.8 % Eosinophils (%) (Auto) 4.1 % Basophils (%) (Auto) 1.0 % Neutrophils # (Auto) 2.97 K/uL (1.4-6.5) Lymphocytes # (Auto) 1.20 K/uL (1.2-3.4) Monocytes # (Auto) 0.48 K/uL (0.11-0.59) Eosinophils # (Auto) 0.20 K/uL (0-0.5) Basophils # (Auto) 0.05 K/uL (0-0.2) Micro Results Date/Time Source Procedure Growth Status 03/09/17 16:55 Blood Blood Culture - Preliminary NO GROWTH TO DATE. Resulted 03/09/17 18:05 Nasal MRSA DNA Surveillance Screen - Final Specimen Positive for MRSA by DNA Probe Complete 03/11/17 11:05 Abscess Toe Right 2 Gram Stain - Final Resulted 03/11/17 11:05 Abscess Toe Right 2 Wound Culture Pending Resulted Assessment & Plan Assessment 71 year old female receiving Vancomycin IV for treatment of RLE cellulitis. Day # 4 of antimicrobial therapy. Patient was found to have significant popliteal arterial occlusive bilaterally. Vascular surgery consulted Plan Vancomycin IV * Trough level of 15.8 mcg/mL is therapeutic * Continue dose of 1800 mg (13 mg/kg) IV every 18 hours * Goal trough level for cellulitis : ~15 mcg/mL * Repeat trough level in ~48 hours to r/o accumulation of drug in the setting of obesity. Trough level ordered for: 03/14/17. Pharmacy will continue to follow and will adjust dose/frequency as necessary. Thank you.
--- NOTE | 2017-03-12 11:33 | Surgery Consultation ---
Consultation Date of Service Mar 12, 2017. (Desiree Graham, NICOLETTE) Chief Complaint PAD, R toe wound (Desiree Graham PA-C) History of Present Illness The patient is a 71 year old female with hx of COPD on oxygen, HTN, DMII, hypothyroidism, admitted with cellulitis/abscess R 2nd toe, seen in consultation today d/t PAD noted on arterial US. Pt states her toe became red and swollen within a few days, so came to [facility]. Does not see a filenet architect. Rarely leaves her home, ambulates with walker at home. Has chronic lymphedema of BLE, so typically wears compression stockings. Denies ESCALANTE, fever, chills, chest pain, SOB, abd pain, N/V, rest pain, claudication, other complaints. Ultrasound indicates PAD at popliteal level, with 3 vessel runoff to BLE. (Desiree Graham, NICOLETTE) Vitals Vital Signs Past 12 Hours Date Time Temp Pulse Resp B/P (MAP) Pulse Ox O2 Delivery O2 Flow Rate FiO2 03/12/17 08:05 36.4 63 20 133/72 (92) 98 3.0 03/12/17 08:00 Nasal Cannula 3.0 03/12/17 07:42 70 12 97 Nasal Cannula 3.0 03/12/17 00:00 Nasal Cannula 3.0 03/11/17 23:28 36.5 70 18 126/72 (90) 99 Room Air (Desiree Graham, NICOLETTE) Allergies Coded Allergies: Mineral Oil (Verified Allergy, Intermediate, LEGS SWELL, 03/09/17) Penicillins (Verified Allergy, Intermediate, HIVES, 03/09/17) Petrolatum (Verified Allergy, Intermediate, LEGS SWELL, 03/09/17) Metronidazole (Verified Adverse Reaction, Unknown, NAUSEA, 03/09/17) Home Medications Scheduled Allopurinol (Zyloprim), 100 MG PO DAILY AT 1200 Arformoterol Tartrate (Brovana), 15 MCG INH BID Atorvastatin (Lipitor), 40 MG PO QPM Bumetanide (Bumex), 1 MG PO BID Cholecalciferol (Vitamin D3), 2,000 INTER.UNIT PO DAILY Diltiazem Hcl Extended Release (Diltiazem Hcl), 240 MG PO QAM Fluticasone Propionate (Flovent Hfa), 1 PUFFS INH BID Home O2 Therapy (Oxygen), 3 LITERS NA CONTINOUS Hydrocortisone 1% (Hydrocortisone 1%), 1 APPL TOP BID Insulin Lispro Protamine & Lis (Humalog Mix 75/25 Kwikpen), 80 UNITS SQ Q12 Levothyroxine Sodium (Levothyroxine Sodium), 50 MCG PO QAM Magnesium Oxide (Mag-Ox), 400 MG PO DAILY AT NOON Metoprolol Succ (Toprol Xl) (Toprol-Xl ), 100 MG PO DAILY Potassium Chloride (Klor-Con M20), 20 MEQ PO BID Rivaroxaban (Xarelto), 20 MG PO QDD Triamcinolone Acetonide (Topic (Triamcinolone Acet 0.025%), 1 APPLN EXT BID Scheduled PRN Alprazolam (Xanax), 0.5 MG PO BID PRN for Anxiety Eflornithine Hcl (Vaniqa), 1 APPLN TOP BID PRN for Hirsutism Problem List Medical Problems: (1) Acquired lymphedema (2) Acute on chronic CHF exacerbation, core pulmonale (3) Atrial flutter (4) CHF exacerbation (5) Congestive heart failure (6) Diab W Oth Coma, Type I [Juvenile Type], Uncontrolled (7) Diabetes mellitus type 2, uncontrolled (8) Endometrial cancer (9) Epistaxis (10) Hypertension Nos (11) Hypertension Nos (12) Hypothyroidism (13) Hypoxia (14) Morbid obesity (15) Obesity (16) Pleural effusion (17) Sciatica (18) UTI (urinary tract infection) (19) Weakness Surgical Problems: (1) S/P thoracentesis (Desiree Graham PA-C) Surgical / Medical History Hx Cardiac Surgery: No Hx Abdominal Surgery: Yes (hysterectomy) Hx Cancer Surgery: Yes (hysterectomy) Hx Thoracic Surgery: No Hx Orthopedic: No Hx Urinary Tract Surgery: No HX Other Surgery: Yes Past Medical/Surgical History: COPD, Diabetes, Heart Disease, High Cholesterol , Hypertension, Thyroid Disease (Desiree Graham PA-C) Family History FH: Alzheimers disease Hypertension Stroke (Desiree Graham PA-C) FH: Alzheimers disease Hypertension Stroke (Karsten Doss M.D.) Social History Smoking Status: Never Smoker Hx Tobacco Use In Past Year?: No Hx Alcohol Use - Type & Amnt: No Hx Substance Use -Type & Amnt: No (Desiree Graham PA-C) Review of Systems Constitutional: No chills, No malaise Skin: + change in color Eyes: No visual changes ENMT: No sore throat Respiratory: No cough, No CELAYA, No hemoptysis, No short of breath Cardiovascular: + edema, No chest pain, No palpitations, No syncope, No intermittent claudication Gastrointestinal: No abdominal pain, No nausea, No vomiting Genitourinary - Female: No dysuria, No hematuria Neurologic: No dizziness, No headache, No lethargy, No numbness, No tingling ( Desiree Graham PA-C) Physical Exam Constitutional: General Apperance: heathly-appearing, well-nourished, well-developed, obese Level of Distress: NAD Psychiatric: Mental Status: active & alert, normal mood, normal affect Orientation: oriented except where noted, to time, to place, to person Memory: recent memory normal, remote memory normal Head: normocephalic, atraumatic Eyes: Pupils: PERRLA EOM: EOMI ENMT: normal ENT inspection, hearing grossly normal, TMs normal Neck: supple, trachea midline Lungs: Respiratory effort: no dyspnea Auscultation: no wheezing, no rales/crackles, no rhonchi Cardiovascular: Apical Impulse: not displaced Heart Auscultation: RRR, no murmurs, no rubs, no gallops Peripheral Pulses: Pulses: full and equal, in all extremities except if noted Bruits: none appreciated Carotid Pulse: normal on the left, normal on the right Brachial Pulses: normal on the left, normal on the right Radial Pulse: normal on the left, normal on the right Femoral Pulse: normal on the left, normal on the right Posterior Tibialis Pulse: pertinent finding (nonpalpable BLE) Dorsalis Pedis Pulse: pertinent finding (nonpalpable) Abdomen: Bowel Sounds: normal Inspection & Palpation: soft, non-distended, no tenderness, guarding & rebound Musculoskeletal: normal strength (5/5 throughout), normal tone Extremities: Upper Right: no cyanosis, no edema, no varicosities Upper Left: no cyanosis, no edema, no varicosities Lower Right: no cyanosis, no varicosities, no palpable cord, edema Lower Left: no cyanosis, no varicosities, no palpable cord, edema Neurologic: Cranial Nerves: grossly intact Sensation: grossly intact (Desiree Graham, PA-C) Assessment and Plan ASSESSMENT and PLAN: PAD, asymptomatic R 2nd toe infection Pt US indicates PAD, however, pt is asymptomatic at this time. Recommend local wound care and abx, which have already resulted in some improvement per pt. If wound becomes nonhealing or appearance worsens, would consider further imaging or intervention. Please call if needed. (Desiree Graham, PA-C) Patient was seen, examined, and chart reviewed. Agree with exam and treatment plan of the Vascular PA. Thank you very much for letting me participate in the care of this patient. (Karsten Doss M.D.)
[2017-03-12] MEDS: MAGNESIUM OXIDE 400 MG TAB PO SCH (13:00)
[2017-03-12 13:17] LABS: CALCIUM 8.9 mg/dl (8.5-10.1)
[2017-03-12 15:29] VITALS: BP 145/79; PULSE 62; TEMP 36.5; O2SAT 98
--- NOTE | 2017-03-12 16:49 | Progress Note ---
Subjective Date of Service: Mar 12, 2017. Subjective Pt evaluation today including: conversation w/ patient, physical exam, chart review, lab review, review of studies, review of inpatient medication list Pt resting comfortably in bed Denies any pain No fevers or chills No acute events overnight Problem List Medical Problems: (1) Abdominal pain, epigastric Status: Acute (2) Acute bronchitis Status: Acute (3) Bleeding Status: Acute (4) Cellulitis of right foot Status: Acute (5) Congestive heart failure Status: Chronic (6) Failure of outpatient treatment Status: Acute (7) Generalized weakness Status: Acute (8) Pneumonia Status: Acute (9) Pneumonia Status: Acute (10) Sinusitis Status: Acute (11) SOB (shortness of breath) Status: Acute Review of Systems Constitutional: No fever, No chills, No sweats, No weight loss Respiratory: No cough, No sputum, No wheezing, No shortness of breath, No dyspnea on exertion Cardiac: No chest pain, No orthopnea, No PND, No edema Abdomen: No pain, No nausea, No vomiting, No diarrhea, No constipation Musculoskeletal: No joint pain, No muscle pain Female : No dysuria, No urinary frequency Neurologic: No memory loss, No paralysis, No weakness, No numbness/tingling Psychiatric: No depression symptoms, No anhedonism, No anxiety, No insomnia Endo: No fatigue, No excessive thirst Skin: No rash, No itch Objective Vital Signs Date Time Temp Pulse Resp B/P (MAP) Pulse Ox O2 Delivery O2 Flow Rate FiO2 03/12/17 15:29 36.5 62 18 145/79 (101) 98 Nasal Cannula 3.0 03/12/17 08:05 36.4 63 20 133/72 (92) 98 3.0 03/12/17 08:00 Nasal Cannula 3.0 03/12/17 07:42 70 12 97 Nasal Cannula 3.0 03/12/17 00:00 Nasal Cannula 3.0 03/11/17 23:28 36.5 70 18 126/72 (90) 99 Room Air 03/11/17 20:00 Nasal Cannula 3.0 03/11/17 19:54 68 16 97 Nasal Cannula 3.0 Physical Exam General Appearance: WD/WN, no apparent distress Eyes: normal inspection, PERRL, EOMI, sclerae normal ENT: normal ENT inspection, hearing grossly normal, TMs normal, pharynx normal Neck: supple, no adenopathy, thyroid normal, no JVD Respiratory/Chest: chest non-tender, lungs clear, normal breath sounds, no respiratory distress Cardiovascular: regular rate, rhythm, no edema, no gallop, no JVD Abdomen: normal bowel sounds, non tender, soft, no organomegaly Extremities: non-tender, normal inspection, no pedal edema, + pertinent finding (ulcer on left third toe cellulitis) Neurologic/Psychiatric: no motor/sensory deficits, alert, normal mood/affect, oriented x 3 Laboratory Results Last 24 Hours Test 03/11/17 20:05 03/12/17 05:54 03/12/17 07:58 03/12/17 11:23 Bedside Glucose 216 mg/dl 247 mg/dl 209 mg/dl White Blood Count 4.91 K/uL Red Blood Count 4.52 M/uL Hemoglobin 12.6 g/dL Hematocrit 39.2 % Mean Corpuscular Volume 86.7 fL Mean Corpuscular Hemoglobin 27.9 pg Mean Corpuscular Hemoglobin Concent 32.1 g/dl Platelet Count 170 K/uL Mean Platelet Volume 9.7 fL Neutrophils (%) (Auto) 60.5 % Lymphocytes (%) (Auto) 24.4 % Monocytes (%) (Auto) 9.8 % Eosinophils (%) (Auto) 4.1 % Basophils (%) (Auto) 1.0 % Neutrophils # (Auto) 2.97 K/uL Lymphocytes # (Auto) 1.20 K/uL Monocytes # (Auto) 0.48 K/uL Eosinophils # (Auto) 0.20 K/uL Basophils # (Auto) 0.05 K/uL RDW Standard Deviation 53.4 fL RDW Coefficient of Variation 16.7 % Immature Granulocyte % (Auto) 0.2 % Immature Granulocyte # (Auto) 0.01 K/uL Red Blood Cell Morphology Unremarkable Sodium Level 137 mmol/L Potassium Level 3.9 mmol/L Chloride Level 100 mmol/L Carbon Dioxide Level 31 mmol/L Anion Gap 6.0 mmol/L Blood Urea Nitrogen 20 mg/dl Creatinine 0.94 mg/dl Est Creatinine Clear Calc Drug Dose 72.7 ml/min Estimated GFR () 70.2 Estimated GFR (Non- 60.6 BUN/Creatinine Ratio 21.7 Random Glucose 203 mg/dl Calcium Level 8.9 mg/dl Vancomycin Level Trough 15.8 mcg/ml Assessment and Plan 71 y/o female with a history of atrial flutter, HTN, HLD, DM II, diastolic CHF, hypothyroidism, COPD, and gout who was admitted on 03/09 with R foot cellulitis. R foot cellulitis--improving -Admitted to med/surg -Continue vancomycin for now, no pain and redness improved -s/p debridement per wound care, wound cx pending -BCx NGTD -Arterial dopplers show significant popliteal arterial occlusive changes bilaterally -Vascular surgery consulted, appreciate recs, no intervention at this time H/o atrial flutter, rate controlled -Continue Toprol 100 mg PO qd, diltiazem 240 mg PO qd and Xarelto 20 mg PO qd HTN--stable -Continue metoprolol and diltiazem as above HLD -Continue atorvastatin 40 mg PO qd Diabetes mellitus type 2--last hgbA1c checked 01/04/17 was 7.4 -Lantus 20 units SC qd added -Insulin sliding scale -Check BSGs q ac and qhs -A1c in december 7.4, lipids in december adequately suppressed -add aspirin, if dopplers look surprisingly reassuring, can consider dc, but likely will benefit -d/w wound nurse and will consult wound care physician as debridement likely to be needed Holding IVF given good PO intake due to hx of CHF with recent thoracentesis Diastolic CHF--stable, no signs of acute exacerbation -Continue Bumex 1 mg PO BID -Low sodium and diabetic diet Hypothyroidism -Continue Synthroid 50 mcg PO qd COPD -Continue Brovana, Flovent and O2 by protocol. On 3L continuous at home Gout -Continue allopurinol 100 mg PO qd DVT prophylaxis -Xarelto Code Status -Level III, FULL NO MECH VENTILATION
[2017-03-12] MEDS: RIVAROXABAN 20 MG TAB PO SCH (17:07)
[2017-03-12 19:36] VITALS: PULSE 74; O2SAT 98
[2017-03-12] MEDS: ATORVASTATIN 40 MG TAB PO SCH (20:44)
[2017-03-12 23:39] VITALS: BP 132/74; PULSE 71; TEMP 36.7; O2SAT 99
[2017-03-13] MEDS: VANCOMYCIN INJ 1,800 MG in SODIUM CHLORIDE 0.9% 500ML 500 ML IV SCH (00:32)
[2017-03-13] MEDS: LEVOTHYROXINE 50 MCG TAB PO SCH (06:22)
[2017-03-13] MEDS: ARFORMOTEROL TART 15MCG/2ML VIAL INH SCH (07:08)
[2017-03-13 07:12] LABS: CREATININE 1.1 mg/dl (0.60-1.20)
[2017-03-13 07:13] VITALS: PULSE 78; O2SAT 99
[2017-03-13 07:47] VITALS: BP 146/74; PULSE 71; TEMP 36.5; O2SAT 99
[2017-03-13] MEDS: FLUTICASONE PROP HFA INH 44 MCG INHALER INH SCH (08:00)
[2017-03-13] MEDS: METOPROLOL SUCC 50MG EXT REL TAB PO SCH (09:01)
[2017-03-13] MEDS: LACTOBACILLUS ACIDOPHILUS (FLORANEX) TAB PO SCH ×2 (09:01→13:25)
[2017-03-13] MEDS: DILTIAZEM HCL 240 MG CAPCR PO SCH (09:02)
[2017-03-13] MEDS: BUMETANIDE 1 MG TAB PO SCH (09:02)
[2017-03-13] MEDS: CHOLECALCIFEROL 1000 INTER.UNIT TAB PO SCH (09:02)
[2017-03-13] MEDS: POTASSIUM CHLORIDE 20 MEQ TABCR PO SCH (09:03)
[2017-03-13] MEDS: INSULIN ASPART 100 UNITS/ML 3 ML PEN SC SCH ×2 (09:07→13:25)
[2017-03-13] MEDS: INSULIN GLARGINE SOLOSTAR 100 UNITS/ML 3 ML PEN SC SCH (09:08)
[2017-03-13] MEDS ORDERED: CLIN300C2 PO (12:33)
--- NOTE | 2017-03-13 12:38 | Discharge Instructions ---
Discharge Instructions Date of Service Mar 13, 2017. Admission Reason for Admission: Cellulitis Of Right Foot Discharge Discharge Diagnosis / Problem: Right 2nd toe cellulitis, peripheral arterial disease Discharge Goals Goal(s): Decrease discomfort, Improve function, Increase independence, Improve disease control, Diagnostic testing, Therapeutic intervention Activity Recommendations Activity Limitations: resume your previous activity . Instructions / Follow-Up Instructions / Follow-Up Patient to be discharged home Found to have cellulitis and peripheral arterial disease Please continue to take antibiotic clindamycin 300 mg tablet 4 times a day for 7 more days Please follow up with wound care doctor Dr Augustine in 1 week If worsening pain, fevers, redness or swelling please report to ER Please follow up with Dr Rock in 1-2 weeks Current Hospital Diet Patient's current hospital diet: Diabetes Type 2 Diet, Low Sodium Diet (2gm Na) Discharge Diet Recommended Diet: Low Sodium Diet (2gm Na), Diabetes Type 2 Diet Pending Studies Studies pending at discharge: no Laboratory Results Hemoglobin A1c Test 01/04/17 06:07 Range/Units Estimated Average Glucose 166 mg/dl Hemoglobin A1c 7.4 H 4.5-5.6 % Lipid Panel Test 12/26/16 08:10 Range/Units Triglycerides Level 87 0-150 mg/dl Cholesterol Level 104 0-200 mg/dl HDL Cholesterol 38 mg/dl Cholesterol/HDL Ratio 2.7 LDL Cholesterol, Calculated 49 mg/dl Medical Emergencies . Who to Call and When: Medical Emergencies: If at any time you feel your situation is an emergency, please call 911 immediately. . Non-Emergent Contact Non-Emergency issues call your: Primary Care Provider Call Non-Emergent contact if: you have a fever, your pain is worsening . . "Provider Documentation" section prepared by Gaetano Morgan. . VTE Core Measure Inpt VTE Proph given/why not?: Other Anticoagulation
[2017-03-13] MEDS: ALLOPURINOL 100 MG TAB PO SCH (13:21)
[2017-03-13] MEDS: MAGNESIUM OXIDE 400 MG TAB PO SCH (13:22)
[2017-03-13] MEDS: HYDROCORTISONE 1% CR 30 GM TUBE EXT SCH (13:27)
[2017-03-13 14:10] VITALS: BP 146/74; PULSE 71; TEMP 36.5; O2SAT 99
--- NOTE | 2017-03-13 16:59 | Discharge Summary ---
Discharge Summary Date of Service Mar 13, 2017. Discharge Summary Admission Date: Mar 09, 2017 at 18:43 Discharge Date: Mar 13, 2017 Discharge Disposition: Home Principal Diagnosis: Foot cellulitis, peripheral arterial disease Problems/Secondary Diagnoses: (1) Congestive heart failure Status: Chronic Immunizations: Have You Had Influenza Vaccine: Unknown Influenza Vaccine Date: Jul 25, 2012 History of Tetanus Vaccine?: Unknown History of Pneumococcal: Unknown History of Hepatitis B Vaccine: Unknown Consultations: Vascular surgery Wound care Medication Reconciliation New Medications: Clindamycin Hcl (Cleocin) 300 Mg Cap 300 MG PO QID for 7 Days, #28 CAP Continued Medications: Allopurinol (Zyloprim) 100 Mg Tab 100 MG PO DAILY AT 1200, TAB Alprazolam (Xanax) 1 Mg Tab 0.5 MG PO BID PRN for Anxiety, #30 TAB Arformoterol Tartrate (Brovana) 15 Mcg/2 Ml Neb 15 MCG INH BID for 30 Days, #1 INHALER 6 Refills Atorvastatin (Lipitor) 40 Mg Tab 40 MG PO QPM, TAB Bumetanide (Bumex) 1 Mg Tab 1 MG PO BID, TAB Cholecalciferol (Vitamin D3) 2,000 Unit Tab 2000 INTER.UNIT PO DAILY, TAB 3 Refills Diltiazem Hcl Extended Release (Diltiazem Hcl) 240 Mg Cap 240 MG PO QAM Eflornithine Hcl (Vaniqa) 13.9 % Cre 1 APPLN TOP BID PRN for Hirsutism, GM APPLY AND GENTLY MASSAGE INTO AFFECTED AREA. Fluticasone Propionate (Flovent Hfa) 120 Puffs/5280 Mcg Aero 1 PUFFS INH BID for 30 Days, #1 INHALER 2 Refills Home O2 Therapy (Oxygen) Gas 3 LITERS NA CONTINOUS USES NEEDED Hydrocortisone 1% (Hydrocortisone 1%) 90 Appln/30 Gm Cr 1 APPL TOP BID Insulin Lispro Protamine & Lis (Humalog Mix 75/25 Kwikpen) 1 Inj Inj 80 UNITS SQ Q12 Levothyroxine Sodium (Levothyroxine Sodium) 50 Mcg Tab 50 MCG PO QAM Magnesium Oxide (Mag-Ox) 400 Mg Tab 400 MG PO DAILY AT NOON, TAB Metoprolol Succ (Toprol Xl) (Toprol-Xl ) 100 Mg Tabcr 100 MG PO DAILY, TAB Potassium Chloride (Klor-Con M20) 20 Meq Tabcr 20 MEQ PO BID, #60 DOSE Rivaroxaban (Xarelto) 20 Mg Tab 20 MG PO QDD, #30 TAB 6 Refills Triamcinolone Acetonide (Topic (Triamcinolone Acet 0.025%) 0.025 % Lot 1 APPLN EXT BID Discharge Exam Review of Systems: Constitutional: No fever, No chills, No sweats, No weakness ENT: No hearing loss, No unusual epistaxis, No nasal symptoms, No sore throat Respiratory: No cough, No sputum, No wheezing, No shortness of breath, No dyspnea on exertion Cardiovascular: No chest pain, No orthopnea, No PND, No edema Abdomen: No pain, No nausea, No vomiting, No diarrhea, No constipation Musculoskeletal: No joint pain, No muscle pain, No swelling, No calf pain Genitourinary - Female: No dysuria, No urinary frequency, No urinary urgency , No urinary incontinence Neurologic: No memory loss, No paralysis, No weakness, No numbness/tingling Psychiatric: No depression symptoms, No anhedonism, No anxiety, No insomnia Integumentary: No rash, No itch Physical Exam: General Appearance: WD/WN, no apparent distress Eyes: normal inspection, PERRL, EOMI, sclerae normal ENT: normal ENT inspection, hearing grossly normal, TMs normal, pharynx normal Neck: supple, no adenopathy, thyroid normal, no JVD Respiratory/Chest: chest non-tender, lungs clear, normal breath sounds, no respiratory distress Cardiovascular: regular rate, rhythm, no edema, no gallop, no JVD Abdomen / GI: normal bowel sounds, non tender, soft, no organomegaly Extremities: no calf tenderness, normal capillary refill, non-tender, + pertinent finding (right foot 2nd toe cellulitis) Neurologic/Psychiatric: alert, normal mood/affect, normal reflexes, oriented x 3 Skin: normal color, warm/dry, no rash Lymphatic: no adenopathy Hospital Course 71 y/o female with a history of atrial flutter, HTN, HLD, DM II, diastolic CHF, hypothyroidism, COPD, and gout who was admitted on 03/09 with R foot cellulitis. R foot cellulitis--improving -Admitted to med/surg -Pt initially started on vanc IV, no pain and redness improved -s/p debridement per wound care, wound cx pos for MRSA -BCx NGTD -Arterial dopplers show significant popliteal arterial occlusive changes bilaterally -Vascular surgery consulted, appreciate recs, no intervention at this time -Discharge home with clindamycin 300 mg PO QID for 7 more days to finish a 10 day course H/o atrial flutter, rate controlled -Continue Toprol 100 mg PO qd, diltiazem 240 mg PO qd and Xarelto 20 mg PO qd HTN--stable -Continue metoprolol and diltiazem as above HLD -Continue atorvastatin 40 mg PO qd Diabetes mellitus type 2--last hgbA1c checked 01/04/17 was 7.4 -Lantus 20 units SC qd added -Insulin sliding scale -Check BSGs q ac and qhs -A1c in december 7.4, lipids in december adequately suppressed Diastolic CHF--stable, no signs of acute exacerbation -Continue Bumex 1 mg PO BID -Low sodium and diabetic diet Hypothyroidism -Continue Synthroid 50 mcg PO qd COPD -Continue Brovana, Flovent and O2 by protocol. On 3L continuous at home Gout -Continue allopurinol 100 mg PO qd DVT prophylaxis -Xarelto Code Status -Level III, [facility] Total Time Spent: Greater than 30 minutes This includes examination of the patient, discharge planning, medication reconciliation, and communication with other providers. Discharge Instructions Please refer to the electronic Patient Visit Report (Discharge Instructions) for additional information. Additional Copies To Maxine Roberts M.D.
[2017-03-14] MEDS ORDERED: VANCOMYCIN TROUGH SCH (11:30)
--- NOTE | 2017-03-15 09:03 | Wound Consultation: Inpatient ---
Wound Consultation Date of Consultation: Mar 11, 2017. Attending Physician: Gaetano Morgan D.O. Reason for Consultation: Ulceration right second toe History of Present Illness Patient was admitted to [facility] 2 days her prior due to redness of her lower legs. Patient has a prior history of chronic lymphedema. She noticed that her right Second toe was red and burning. Patient states that her pulled off a piece of tissue from the toe. Patient denies any trauma to the toe. Patient denies any prior history of similar occurrence. Patient denies any other systemic complaints at this time. Past Medical/Surgical History Past medical history of lymphedema atrial flutter congestive heart failure diabetes type 2, endometrial cancer, hypertension, hypothyroidism, morbid obesity, sciatica. Family History FH: Alzheimers disease Hypertension Stroke Social History Smoking Status: Never Smoker Alcohol Use: none Drug Use: none Marital Status: Housing Status: lives with family Occupation Status: retired Allergies Coded Allergies: Mineral Oil (Verified Allergy, Intermediate, LEGS SWELL, 03/09/17) Penicillins (Verified Allergy, Intermediate, HIVES, 03/09/17) Petrolatum (Verified Allergy, Intermediate, LEGS SWELL, 03/09/17) Metronidazole (Verified Adverse Reaction, Unknown, NAUSEA, 03/09/17) Home Medications Scheduled Allopurinol (Zyloprim), 100 MG PO DAILY AT 1200 Arformoterol Tartrate (Brovana), 15 MCG INH BID Atorvastatin (Lipitor), 40 MG PO QPM Bumetanide (Bumex), 1 MG PO BID Cholecalciferol (Vitamin D3), 2,000 INTER.UNIT PO DAILY Clindamycin Hcl (Cleocin), 300 MG PO QID Diltiazem Hcl Extended Release (Diltiazem Hcl), 240 MG PO QAM Fluticasone Propionate (Flovent Hfa), 1 PUFFS INH BID Home O2 Therapy (Oxygen), 3 LITERS NA CONTINOUS Hydrocortisone 1% (Hydrocortisone 1%), 1 APPL TOP BID Insulin Lispro Protamine & Lis (Humalog Mix 75/25 Kwikpen), 80 UNITS SQ Q12 Levothyroxine Sodium (Levothyroxine Sodium), 50 MCG PO QAM Magnesium Oxide (Mag-Ox), 400 MG PO DAILY AT NOON Metoprolol Succ (Toprol Xl) (Toprol-Xl ), 100 MG PO DAILY Potassium Chloride (Klor-Con M20), 20 MEQ PO BID Rivaroxaban (Xarelto), 20 MG PO QDD Triamcinolone Acetonide (Topic (Triamcinolone Acet 0.025%), 1 APPLN EXT BID Scheduled PRN Alprazolam (Xanax), 0.5 MG PO BID PRN for Anxiety Eflornithine Hcl (Vaniqa), 1 APPLN TOP BID PRN for Hirsutism Review of Systems 10 systems were reviewed and they're entirely positive findings were noted in the chief complaint history of present illness. Physical Exam Vital signs were noted found to be stable patient is afebrile General Appearance: no apparent distress Head: normocephalic Eyes: normal inspection, PERRL, EOMI ENT: normal ENT inspection Neck: supple Respiratory/Chest: lungs clear Cardiovascular: regular rate, rhythm Extremities/Musculoskelatal: + pedal edema, + pertinent finding (there is an ulceration and noted on the right second toe measuring 1.8 x 2.2 x 0.1 cm there is a swelling and fluctuance present distally. No active drainage. There is some proximal erythema and edema noted. Chronic bilateral lower extremity edema is noted.) Neurologic/Psych: no motor/sensory deficits, alert, oriented x 3 Assessment & Plan Assessment Diabetic foot ulcer Frost grade 2 right second toe Abscess right second toe Plan At this time the site did require debridement. With the patient's permission after the application of topical Xylocaine 4% this site was provided with scissors and forceps. The abscess site was deroofed. Skin removed and central slough removed. Minimal bleeding occurred which was controlled with direct pressure. The site will be dressed with Aquacel Ag and gauze changed on a daily basis. Patient will be followed in the outpatient clinic upon discharge. This represented a simple incision and drainage of an abscess.
== END 2017-03-13 14:30 | disposition home or self-care (01) | DRG 571 ==
LOC: C.EDB 15:02 → C.MS4W 18:43 → ENRESERV 19:20
PROVIDERS: ADMIT Family Medicine; ATTEND Hospitalist
PROC: 0HBMXZZ Excision of Right Foot Skin, External Approach (ICD-10-PCS; principal; 2017-03-10)
PROC: 0HDMXZZ Extraction of Right Foot Skin, External Approach (ICD-10-PCS; principal; 2017-03-10)
DX: L03.115 Cellulitis of right lower limb (principal); I48.92 Unspecified atrial flutter; I50.32 Chronic diastolic (congestive) heart failure; Z68.43 Body mass index [BMI] 50.0-59.9, adult; Z66 Do not resuscitate; E11.9 Type 2 diabetes mellitus without complications; I10 Essential (primary) hypertension; E03.9 Hypothyroidism, unspecified; E66.01 Morbid (severe) obesity due to excess calories; I48.91 Unspecified atrial fibrillation; J44.9 Chronic obstructive pulmonary disease, unspecified; M10.9 Gout, unspecified; Z79.4 Long term (current) use of insulin

== ENCOUNTER → 2017-04-26 | Outpatient (CLI) | payer OTHER ==
[~2017-04-26] MED LIST changes: -BMX1 PO; +BUME1TAB PO; -CPR500 PO; -DOCU-94 PO; -EFLO13.925 TOP; +EFLO13.94 TOP; -LISI-461 PO; -MCRB100 PO; -METO100T44 PO; +METO1TAB69 PO
== END | disposition home or self-care (01) ==
LOC: C.LABPVFM 10:45
PROVIDERS: ATTEND Family Medicine
DX: J02.9 Acute pharyngitis, unspecified (principal)

== ENCOUNTER → 2017-05-16 | Outpatient (CLI) | payer OTHER | END | disposition home or self-care (01) | LOC: C.PAPS 14:20 | PROVIDERS: ATTEND Obstetrics & Gynecology | DX: Z12.72 Encounter for screening for malignant neoplasm of vagina (principal); Z90.710 Acquired absence of both cervix and uterus; Z85.42 Personal history of malignant neoplasm of other parts of uterus ==

== ENCOUNTER → 2017-07-22 | Outpatient (CLI) | payer OTHER ==
[~2017-07-22] MED LIST changes: +EFLO13.925 TOP; -EFLO13.94 TOP; +METO100T44 PO; -METO1TAB69 PO
[2017-07-22 13:22] LABS: ALB/GLOB RATIO 0.8 (0.9-2); ALKALINE PHOSPHATASE 150 U/L (45-117); ALT/SGPT 37 U/L (12-78); AST/SGOT 28 U/L (15-37); BLOOD UREA NITROGEN 24 mg/dl (7-18); BUN/CREATININE RATIO 22.2 (10-20); CALCIUM 9.4 mg/dl (8.5-10.1); CARBON DIOXIDE 34 mmol/L (21-32); CHLORIDE 95 mmol/L (98-107); CHOLESTEROL 132 mg/dl (0-200); CREATININE 1.09 mg/dl (0.60-1.20); GLUCOSE 127 mg/dl (70-99); HDL CHOLESTEROL 44 mg/dl; LDL CHOLESTEROL CALCULATED 58 mg/dl; POTASSIUM 3.4 mmol/L (3.5-5.1); SODIUM 136 mmol/L (136-145); TRIGLYCERIDES 151 mg/dl (0-150); VERY LOW DENSITY LIPOPROT CALC 30 mg/dl
[2017-07-22 13:58] LABS: ESTIMATED AVERAGE GLUCOSE 209 mg/dl; HA1C FLAG Normal (Normal)
== END | disposition home or self-care (01) ==
LOC: C.LABPVFM 07:57
PROVIDERS: ATTEND Family Medicine
DX: E11.9 Type 2 diabetes mellitus without complications (principal); I10 Essential (primary) hypertension; E78.5 Hyperlipidemia, unspecified; I50.32 Chronic diastolic (congestive) heart failure

== ENCOUNTER → 2017-07-31 | Outpatient (CLI) | payer OTHER ==
--- NOTE | 2017-08-01 15:32 | MAMMOGRAPHY REPORT ---
BILATERAL DIGITAL SCREENING MAMMOGRAM WITH CAD: 07/31/2017 CLINICAL HISTORY: Routine screening. No current complaints. TECHNIQUE: Current study was also evaluated with a Computer Aided Detection (CAD) system. Bilateral CC and MLO views were obtained. COMPARISON: Comparison is made to exams dated: 07/27/2016 mammogram, 07/25/2015 mammogram, 07/22/2014 mammogram, 07/07/2013 mammogram, and 07/01/2012 mammogram - [facility]. BREAST COMPOSITION: The tissue of both breasts is heterogeneously dense, which may obscure small mas ses. FINDINGS: No suspicious masses, calcifications, or areas of architectural distortion are noted in ei ther breast. There has been no significant interval change compared to prior exams. Scattered bilater al benign-appearing calcifications are not significantly changed. The images are suboptimal due to d ifficulties with patient positioning as well as difficulties with the patient holding her breath. IMPRESSION: ACR BI-RADS CATEGORY 2: BENIGN There is no mammographic evidence of malignancy. A 1 year screening mammogram is recommended. The pa tient will receive written notification of the results. Approximately 10% of breast cancers are not detected with mammography. A negative mammographic report should not delay biopsy if a clinically suggestive mass is present. Cathie Solorio M.D. /:07/31/2017 16:23:04 Clinical Medical Assistant: Ana RIVAS)(Naila), [facility] letter sent: Normal 1/2 BI-RADS Code: ACR BI-RADS Category 2: Benign
== END | disposition home or self-care (01) ==
LOC: C.MAMM 08:30
PROVIDERS: ATTEND Obstetrics & Gynecology
DX: Z12.31 Encounter for screening mammogram for malignant neoplasm of breast (principal)

== ENCOUNTER → 2017-08-30 | Outpatient (CLI) | payer OTHER ==
[2017-08-30 12:54] LABS: POTASSIUM 3.9 mmol/L (3.5-5.1)
[2017-08-30 13:07] LABS: THYROID STIMULATING HORMONE 3.03 uIu/ml (0.300-4.500)
== END | disposition home or self-care (01) ==
LOC: C.LABPVFM 08:09
PROVIDERS: ATTEND Family Medicine
DX: E03.9 Hypothyroidism, unspecified (principal); E87.6 Hypokalemia

== ENCOUNTER → 2017-10-28 | Outpatient (CLI) | payer OTHER ==
[2017-10-28 12:56] LABS: ALBUMIN 3.8 gm/dl (3.4-5.0); ALKALINE PHOSPHATASE 147 U/L (45-117); ALT/SGPT 37 U/L (12-78); AST/SGOT 33 U/L (15-37); BLOOD UREA NITROGEN 22 mg/dl (7-18); CALCIUM 9.5 mg/dl (8.5-10.1); CARBON DIOXIDE 33 mmol/L (21-32); CREATININE 1.23 mg/dl (0.60-1.20); GLUCOSE 100 mg/dl (70-99); POTASSIUM 3.6 mmol/L (3.5-5.1); SODIUM 135 mmol/L (136-145); TOTAL PROTEIN 8.3 gm/dl (6.4-8.2)
[2017-10-28 13:05] LABS: HEMOGLOBIN A1C 8.3 % (4.5-5.6)
== END | disposition home or self-care (01) ==
LOC: C.LABPVFM 09:12
PROVIDERS: ATTEND Family Medicine
DX: E11.9 Type 2 diabetes mellitus without complications (principal); I10 Essential (primary) hypertension; F41.9 Anxiety disorder, unspecified; I48.92 Unspecified atrial flutter; E78.5 Hyperlipidemia, unspecified; E03.9 Hypothyroidism, unspecified; E87.6 Hypokalemia

== ENCOUNTER → 2018-01-24 | Outpatient (CLI) | payer OTHER ==
[2018-01-24 12:58] LABS: HEMOGLOBIN A1C 8.7 % (4.5-5.6)
[2018-01-24 13:06] LABS: ALBUMIN 3.5 gm/dl (3.4-5.0); BLOOD UREA NITROGEN 19 mg/dl (7-18); CARBON DIOXIDE 34 mmol/L (21-32); CREATININE 1.13 mg/dl (0.60-1.20); GLUCOSE 151 mg/dl (70-99); POTASSIUM 3.3 mmol/L (3.5-5.1); SODIUM 134 mmol/L (136-145)
[2018-01-24 13:07] LABS: PHOSPHORUS 2.9 mg/dl (2.5-4.9)
== END | disposition home or self-care (01) ==
LOC: C.LABPVFM 08:27
PROVIDERS: ATTEND Family Medicine
DX: E11.42 Type 2 diabetes mellitus with diabetic polyneuropathy (principal); R77.1 Abnormality of globulin

== ENCOUNTER 2018-10-06 20:38 | Inpatient (IN) ==
[2018-10-06] MEDS ORDERED: cefTRIAXone SODIUM 1,000 MG/50 ML BAG IV STA (21:05)
[2018-10-06 21:45] LABS: Basophils # (auto) 0.05 K/uL (0-0.2); Basophils % (auto) 0.5 %; Eosinophils # (auto) 0.09 K/uL (0-0.5); Eosinophils % (auto) 0.9 %; Hematocrit (blood only) 37.7 % (37-47); Hemoglobin 12.7 g/dL (12.0-16.0); Immature Granulocytes # (auto) 0.03 K/uL (0.00-0.02); Immature Granulocytes % (auto) 0.3 %; Lymphocytes # (auto) 1.66 K/uL (1.2-3.4); Lymphocytes % (auto) 17.2 %; Mean Corpuscular Hgb Conc 33.7 g/dL (32-36); Mean Corpuscular Volume 89.5 fL (80-100); Mean Platelet Volume 9.8 fL (7.4-10.4); Monocytes # (auto) 0.59 K/uL (0.11-0.59); Monocytes % (auto) 6.1 %; Neutrophils # (auto) 7.21 K/uL (1.4-6.5); Platelet Count 182 K/uL (130-400); RDW Coefficient of Variation 15.8 % (11.5-14.5); RDW Standard Deviation 51.4 fL (36.4-46.3); Red Blood Count 4.21 M/uL (4.2-5.4); White Blood Count 9.63 K/uL (4.8-10.8)
--- NOTE | 2018-10-06 22:06 | XRay Report ---
XR chest 1V portable CLINICAL HISTORY: weakness COMPARISON STUDY: 09/18/2018 FINDINGS: The heart remains enlarged. There is no focal pulmonary consolidation. There is no overt fa ilure. There are no significant pleural effusions. There is minor left basilar atelectasis.[ IMPRESSION: 1. Stable cardiomegaly 2. Minor left basilar atelectasis 3. No evidence of acute parenchymal consolidation. No evidence of overt failure Electronically signed by: Jacob Horan M.D. 10/06/2018 10:04 PM
--- NOTE | 2018-10-06 22:07 | XRay Report ---
XR foot RT min 3V routine CLINICAL HISTORY: Right foot pain COMPARISON: 03/09/2017 DISCUSSION: The study is limited from a positioning standpoint secondary to extension at the level of the metatarsal phalangeal joints and flexion at the level of the interphalangeal joints. No acute fr actures are visualized. There are degenerative changes in the midfoot. There are prominent calcaneal spurs. There are vascular calcifications present. There is dorsal soft tissue swelling. IMPRESSION: 1. No acute fractures 2. Large calcaneal spurs 3. Dorsal soft tissue swelling Electronically signed by: Jacob Horan M.D. 10/06/2018 10:06 PM
[2018-10-06 22:25] LABS: Alanine Aminotransferase 33 U/L (12-78); Albumin Globulin Ratio 0.7 (0.9-2); Albumin Level 3.2 gm/dl (3.4-5.0); Alkaline Phosphatase 135 U/L (45-117); Aspartate Aminotransferase 26 U/L (15-37); BUN Creatinine Ratio 16.3 (10-20); Bilirubin,Total 0.8 mg/dl (0.2-1); Blood Urea Nitrogen 26 mg/dl (7-18); Calcium 9.1 mg/dl (8.5-10.1); Carbon Dioxide 29 mmol/L (21-32); Chloride 93 mmol/L (98-107); Est GFR (African American) 37.5; Est GFR (Non-African American) 32.4; Globulin 4.4 gm/dl (2.5-4.0); Glucose 144 mg/dl (70-99); Potassium 3.5 mmol/L (3.5-5.1); Sodium 134 mmol/L (136-145); Total Protein 7.6 gm/dl (6.4-8.2); Troponin I < 0.015 ng/ml (0-0.045)
[2018-10-06 22:41] LABS: Creatine Kinase 104 U/L (26-192)
[2018-10-06 23:07] LABS: Appearance Urine Clear (Clear); Bacteria Urine Automated Negative (Negative); Bilirubin Urine Negative (Negative); Color Urine Yellow; Epithelial Cell Urine Auto >30 /lpf (0-5); Glucose Urine UA Negative (Negative); Ketones Urine Trace (Negative); Leukocyte Esterase Urine Trace (Negative); Nitrite Urine Negative (Negative); Protein Urine 2+ (Negative); Specific Gravity Urine 1.023 (1.000-1.030); Urobilinogen Urine Negative (Negative)
[2018-10-06] MEDS ORDERED: VANCOMYCIN HCL 2,750 MG in SODIUM CHLORIDE 0.9% 500 ML IV ONE (23:17)
[2018-10-06] MEDS ORDERED: VANCOMYCIN CONSULT ACTIVE PRN (23:17)
[2018-10-06] MEDS ORDERED: AZTREONAM 2,000 MG in DEXTROSE 5% 100 ML IV STA (23:38)
--- NOTE | 2018-10-07 00:59 | History & Physical Report ---
Date of Service October 07, 2018 Assessment & Plan (1) Cellulitis: Janelle Arellano is a 73 y.o female with medical history significant for Heart Failure, HTN, A-fib, Diabetes Mellitus, and Morbid obesity who presents to the ED with complaint of pain in right third toe pain found to have cellulitis requiring inpatient admission for treatment and management of cellulitis. 1. Cellulitis -Secondary to wound on right third toe -Present on third right toe and also on anterior surface of right lower leg -Physical exam findings show an insult to the right great toe and tenderness on palpation to toe and surrounding soft tissue -Venous Doppler obtained due to warmth/swelling of right lower extremity; negative for DVT -The patient was given Aztreonam, Rocephin, and Vanc in the ED -Blood cultures x 2 obtained -She is currently hemodynamically stable -Due to infection and history she will likely need to be on realty loan specialist IV antibiotics; PICC line placement ordered for 10/07, will need to be consented for placement -Will plan to consult ID, Dr. Willis and continue Aztreonam and Vancomycin for coverage of MRSA, gm +/- organisms 2 COPD -No current exacerbation -No history of tobacco use -On home O2 at 3L per NC -goal O2 sat of 88-92% -Continue Albuterol PRN and Scheduled Fluticosone -Will hold Brovana 3. Diabetes Mellitus -Poorly controlled -A1c from 06/03 of 8.2; A1c pending -Will hold Metformin -On Humulin 70/30 BID dosing; Novolin 70/30 82U qAM and 85U qPM ordered -Accuchecks AC/HS 4. A-fib -EKG findings of normal sinus rhythm with first degree heart block -On tele monitoring -Will continue home Xarelto, Metoprolol, and Diltiazem 5. Heart failure -Chronic in nature without current exacerbation -Unsure of when last ECHO, consider ECHO in AM -Continue Bumetanide -Continue home PO potassium supplementation 6. ERVIN -Likely secondary to acute infectious process -Cr of 1.56 with baseline of 1.01 -UA negative for nitrites, 2+ protein present -Will hold on fluids due to cardiac history -ERVIN should improve with careful hydration and resolution of infection 7. Hypothyroidism -Continue Levothyroxine 8. HLD -Continue home statin FEN/GI Fluids: None Electrolytes: Monitor and replace Nutrition: diabetic carb consistent and heart healthy Activity: Bed rest GI PPx: Protonix DVT PPX: Xarelto Code: DNR Dispo: Inpatient admission. Dispo to home with home health. (2) Atrial fibrillation: (3) CHF (congestive heart failure): (4) Diabetes mellitus type 2, uncontrolled: History of Present Illness Chief Complaint: "I have pain in my toe and can't walk." Primary Care Provider: Maxine Roberts MD Janelle Arellano is a 73 y.o female with medical history significant for Heart Failure, HTN, A-fib, Diabetes Mellitus, and Morbid obesity who presents to the ED with complaint of pain in right third toe that has been present x 1 week occuring after visit with maintenance painter where her toenails were clipped and a portion of skin was cut during the process. She returned to the maintenance painter who bandaged the toe and applied a "cream" but has not seen improvement in pain. On 10/07 pain worsened and made it difficult for her to walk. Normally she uses a walker and cane but has been unable to do so on 10/07. EMS was called and the patient came to the ED Reports prior history of callous to second right toe requiring removal and resulting in infection. Her right foot is painful and has erythema of right lower leg which the patient states is normal for her. States that her diabetes is pretty well controlled and takes insulin and metformin daily. Denies headache, fever, vomiting, or diarrhea. Endorses nausea on 10/07. She has been tolerating PO well. PMHx: 1. Heart Failure 2. A-fib 3. COPD 4. DM2 Surgical History: Hysterectomy and oophorectomy Social: Lives with in [facility]. Denies history of tobacco use/ alcohol/drug use. Allergies Allergy/AdvReac Type Severity Reaction Status Date / Time Penicillins Allergy Intermediate HIVES Verified 10/06/18 22:29 metronidazole AdvReac Unknown NAUSEA Verified 10/06/18 22:29 Home Medications Home Medications Medication Instructions Recorded Confirmed Type acetaminophen [Tylenol Extra 500 mg PO Q4H PRN 09/18/18 10/06/18 History Strength] albuterol sulfate 2.5 mg INHALATION QID PRN 09/18/18 10/06/18 History albuterol sulfate [ProAir HFA] 2 puff INHALATION Q4H PRN 09/18/18 10/06/18 History allopurinol 100 mg PO DAILY 09/18/18 10/06/18 History alprazolam 0.5 mg PO HS PRN 09/18/18 10/06/18 History arformoterol [Brovana] 15 mcg INHALATION BID 09/18/18 10/06/18 History atorvastatin 40 mg PO HS 09/18/18 10/06/18 History bumetanide 2 mg PO BID 09/18/18 10/06/18 History cholecalciferol (vitamin D3) 2,000 units PO QAM 09/18/18 10/06/18 History [Vitamin D3] fluticasone [Flovent HFA] 1 puff INHALATION BID 09/18/18 10/06/18 History hydrocortisone 1 applic TOPICAL BID PRN 09/18/18 10/06/18 History hydroxyzine HCl 25 mg PO QID PRN 09/18/18 10/06/18 History insulin NPH and regular human 82 units SUBCUT QAM 09/18/18 10/06/18 History [Humulin 70/30 U-100 KwikPen] insulin NPH and regular human 85 units SUBCUT QPM 09/18/18 10/06/18 History [Humulin 70/30 U-100 KwikPen] levothyroxine 50 mcg PO QAM 09/18/18 10/06/18 History magnesium oxide 400 mg PO DAILY@1200 09/18/18 10/06/18 History metformin 1,000 mg PO QAM 09/18/18 10/06/18 History metformin 500 mg PO QPM 09/18/18 10/06/18 History metoprolol succinate 150 mg PO QAM 09/18/18 10/06/18 History miconazole nitrate [Desenex] 1 applic TOPICAL BID PRN 09/18/18 10/06/18 History potassium chloride 10 meq PO QAM 09/18/18 10/06/18 History rivaroxaban [Xarelto] 15 mg PO DAILY 09/18/18 10/06/18 History benzonatate 100 mg PO TID PRN 10/06/18 10/06/18 History diltiazem HCl 240 mg PO QAM 10/06/18 10/06/18 History Past Med/Surg History Medical History Atrial fibrillation CHF (congestive heart failure) Social History marital status: Current Living Situation: Spouse Feels Safe at Home: Yes Safety Concerns: Feels Safe At This Time Smoking Status: Never smoker Hx Alcohol Use: No Hx Substance Use: No Beliefs That Will Affect Care: None Preferred Language: Albanian Communication Ability: Effective Briquette Maker Required: No Review of Systems Constitutional: no fever, no chills, no fatigue and no weakness Eyes: no corrective lenses and no worsening vision Ear, Nose, Mouth, Throat: no nasal congestion and no nasal obstruction Respiratory: no cough, no chest congestion and no dyspnea Cardiovascular: no chest pain, no dyspnea on exertion and no syncope Gastrointestinal: no abdominal pain, no nausea, no vomiting, no constipation and no diarrhea/loose stools Genitourinary (Female): no dysuria and no hematuria Musculoskeletal: no back pain, no neck pain and no joint pain Integumentary: + wounds (right 3rd toe) Neurologic: no numbness, no dizziness and no confusion Psychiatric: no depression Endocrine: no fatigue Physical Exam 2 Vital Signs (Past 24 Hours): Last Vital Signs Temp 37.3 C 10/06/18 20:40 Pulse 72 10/07/18 00:58 Resp 19 10/07/18 00:58 BP 151/71 H 10/07/18 00:58 Pulse Ox 99 10/07/18 00:58 ENMT: external ear and nose normal, oropharynx normal Neck: neck supple negative LAD Respiratory: normal respiratory effort; no respiratory distress, no labored breathing and no cough Auscultation: no crackles, no rales and no wheezes Cardiovascular: RRR, no murmur, no edema Heart Sounds: normal S1 and normal S2 Vessels: radial pulses present bilateral dorsalis pedis pulse difficult to palpate Skin: Anterior surface of right lower leg and foot with erythema that has spread up to right below knee, warmth, nttp, hemosiderin deposition present right third toe: planter surface with 1mm size laceration that is not bleeding and approximate 1/2mm in depth toes of right food and dorsal surface of right foot with erythema and tenderness to palpation left lower leg: mild erythema with dry scaling lesion on anterior surface of lower leg Neurologic: PERRL, EOMI, accommodation nl, no face palsy, no dysarthria CN' s II-XI intact bilaterally Sensation intact to bilateral feet Psychiatric: A+Ox3, euthymic affect Results & Data Laboratory Results WBC: 9.63 Neutrophil: 7.21 Na+ 134 BUN/Cr 26/1.56 Glucose: 144 UA: 2+ protein Diagnostic Findings US Doppler RLE negative for DVT CXR: . Stable cardiomegaly 2. Minor left basilar atelectasis 3. No evidence of acute parenchymal consolidation. No evidence of overt failure Foot xray: 1. No acute fractures 2. Large calcaneal spurs 3. Dorsal soft tissue swelling Medications Administered Aztreonam Vanc Rocephin ECG Indication: other (history of a-fib) Rate (beats per minute): 72 Rhythm: normal sinus Findings: + 1st degree AV block Code Status & VTE Plan Code Status DNR VTE Prophylaxis Plan VTE Prophylaxis will be ordered: No Supervising Physician Co-Signing Physician Notes Attending addendum: I have physically seen this patient, have supervised the medical residents activities, and agree with the H&P unless as otherwise noted. Assessment and Plan: Cellulitis of the right toes/diabetic foot infection-- Empiric vancomycin IV and aztreonam IV. Noted penicillin allergy Follow wound cultures. Follow blood cultures. Consult infectious disease Dr. Meadows. Consult wound care. PICC line placement. Diabetes mellitus.-- Hold metformin. Continue outpatient Novolin 70/30. Patient Accu-Cheks before meals and at bedtime with Humalog coverage for scale. Remainder of orders notations as noted. _ (1) Cellulitis Laterality: right Site of cellulitis: extremity Site of cellulitis of extremity: toe Site of cellulitis of trunk: Qualified Code(s): L03.031 - Cellulitis of right toe
[2018-10-07] MEDS ORDERED: ALBUTEROL HFA 8 GM INHALER INH PRN (04:25)
[2018-10-07] MEDS ORDERED: CARBOHYDRATES FOR HYPOGLYCEMIA PO PRN (04:25)
[2018-10-07] MEDS ORDERED: GLUCOSE 40% GEL 15 GM TUBE PO PRN (04:25)
[2018-10-07] MEDS ORDERED: ALBUTEROL 0.083% NEBU SOLN 3 ML VIAL INH PRN (04:25)
[2018-10-07] MEDS ORDERED: GLUCAGON FOR INJ 1 MG VIAL SQ PRN (04:25)
[2018-10-07] MEDS ORDERED: VANCOMYCIN HCL 1,000 MG in SODIUM CHLORIDE 0.9% 250 ML IV SCH (04:25)
[2018-10-07] MEDS ORDERED: VANCOMYCIN CONSULT ACTIVE PRN (04:25)
[2018-10-07] MEDS ORDERED: DEXTROSE 50% 50 ML SYRINGE IV PRN (04:25)
[2018-10-07] MEDS ORDERED: GLUCOSE 10 TABS/TUBE PO PRN (04:25)
[2018-10-07 06:19] LABS: BUN Creatinine Ratio 18.2 (10-20); Calcium 8.7 mg/dl (8.5-10.1); Creatinine Clr Calc Pharmacy 49.9 ml/min; Est GFR (African American) 46.4; Potassium 3.7 mmol/L (3.5-5.1)
[2018-10-07] MEDS: LEVOTHYROXINE SODIUM 50 MCG TABLET PO SCH (06:36)
--- NOTE | 2018-10-07 06:42 | Ultrasound Report ---
US venous doppler LE RT CLINICAL HISTORY: 73 years-old Female presenting with Pt c/o RLE swelling. TECHNIQUE: Real-time grayscale and color and spectral Doppler ultrasound imaging of the veins of the right lower extremity was performed. Compression and augmentation were also utilized. COMPARISON: None. FINDINGS: RIGHT: Common femoral vein: Patent. Greater saphenous vein (superficial): Patent. Deep femoral vein: Patent. Femoral vein: Patent. Popliteal vein: Patent. Calf veins: Patent. Other: None. IMPRESSION: No evidence of deep venous thrombosis. Electronically signed by: Raymond Grajeda M.D. 10/07/2018 6:41 AM
[2018-10-07 07:22] LABS: Estimated Average Glucose 197 mg/dl
[2018-10-07] MEDS: FLUTICASONE HFA 110MCG INHALER INH SCH ×2 (07:28→20:58)
[2018-10-07] MEDS ORDERED: INSULIN ASPART 100 UNITS/ML 3 ML PEN SC SCH (07:30)
[2018-10-07] MEDS: BUMETANIDE 1 MG TAB PO SCH ×2 (07:33→20:59)
[2018-10-07] MEDS: METOPROLOL SUCC 50MG EXT REL TAB PO SCH (07:33)
[2018-10-07] MEDS: PANTOprazole 40 MG TAB PO SCH (07:33)
[2018-10-07] MEDS: RIVAROXABAN 15 MG TAB PO SCH (07:33)
[2018-10-07] MEDS: dilTIAZem HCL 240 MG CAPCR PO SCH (07:33)
[2018-10-07] MEDS: POTASSIUM CHLORIDE 10 MEQ TABCR PO SCH (07:33)
[2018-10-07] MEDS: AZTREONAM 2,000 MG in DEXTROSE 5% 100 ML IV SCH ×3 (07:34→23:55)
[2018-10-07] MEDS: INSULIN HUMAN 70% NPH/30% REGULAR SC SCH (07:34)
--- NOTE | 2018-10-07 10:34 | Infectious Disease Consult ---
Date of Consultation October 07, 2018 Assessment & Plan (1) Cellulitis and abscess of toe: 73-year-old diabetic female with cellulitis involving the right foot and toes, appears to be showing early response to current antibiotics. Pending further culture results, would continue current IV antibiotics, will adjust once results are available. Will follow. (2) Cellulitis of right foot without toes: History of Present Illness Reason for Consultation: Infectious process of the third toe Attending Physician: Emerson Wylie DO History of Present Illness 73-year-old female with history of morbid obesity, diabetes mellitus, atrial fibrillation, congestive heart failure, chronic lower extremity edema who has been following with podiatry for ingrown toenails of the right foot. She has had nail clipping a little over a week ago, and noted onset of pain, redness, swelling of the right third toe. Over the last day or so, developed progressively and significantly worsening pain in her right foot with swelling of the foot with worsening erythema starting to travel up the leg. Associated with low-grade fever and chills. Has been started empirically on vancomycin and aztreonam and has noted some improvement over the last 12 hours. Pain has diminished, currently 3 out of 10 in intensity. Cultures are pending. No evidence of bone infection on x-ray. Allergies Allergy/AdvReac Type Severity Reaction Status Date / Time Penicillins Allergy Intermediate HIVES Verified 10/06/18 22:29 metronidazole AdvReac Unknown NAUSEA Verified 10/06/18 22:29 Home Medications Home Medications Medication Instructions Recorded Confirmed Type acetaminophen [Tylenol Extra 500 mg PO Q4H PRN 09/18/18 10/06/18 History Strength] albuterol sulfate 2.5 mg INHALATION QID PRN 09/18/18 10/06/18 History albuterol sulfate [ProAir HFA] 2 puff INHALATION Q4H PRN 09/18/18 10/06/18 History allopurinol 100 mg PO DAILY 09/18/18 10/06/18 History alprazolam 0.5 mg PO HS PRN 09/18/18 10/06/18 History arformoterol [Brovana] 15 mcg INHALATION BID 09/18/18 10/06/18 History atorvastatin 40 mg PO HS 09/18/18 10/06/18 History bumetanide 2 mg PO BID 09/18/18 10/06/18 History cholecalciferol (vitamin D3) 2,000 units PO QAM 09/18/18 10/06/18 History [Vitamin D3] fluticasone [Flovent HFA] 1 puff INHALATION BID 09/18/18 10/06/18 History hydrocortisone 1 applic TOPICAL BID PRN 09/18/18 10/06/18 History hydroxyzine HCl 25 mg PO QID PRN 09/18/18 10/06/18 History insulin NPH and regular human 82 units SUBCUT QAM 09/18/18 10/06/18 History [Humulin 70/30 U-100 KwikPen] insulin NPH and regular human 85 units SUBCUT QPM 09/18/18 10/06/18 History [Humulin 70/30 U-100 KwikPen] levothyroxine 50 mcg PO QAM 09/18/18 10/06/18 History magnesium oxide 400 mg PO DAILY@1200 09/18/18 10/06/18 History metformin 1,000 mg PO QAM 09/18/18 10/06/18 History metformin 500 mg PO QPM 09/18/18 10/06/18 History metoprolol succinate 150 mg PO QAM 09/18/18 10/06/18 History miconazole nitrate [Desenex] 1 applic TOPICAL BID PRN 09/18/18 10/06/18 History potassium chloride 10 meq PO QAM 09/18/18 10/06/18 History rivaroxaban [Xarelto] 15 mg PO DAILY 09/18/18 10/06/18 History benzonatate 100 mg PO TID PRN 10/06/18 10/06/18 History diltiazem HCl 240 mg PO QAM 10/06/18 10/06/18 History Patient History Medical History Atrial fibrillation CHF (congestive heart failure) Social History Current Living Situation: Spouse Feels Safe at Home: Yes Safety Concerns: Feels Safe At This Time Smoking Status: Never smoker Hx Alcohol Use: No Hx Substance Use: No Beliefs That Will Affect Care: None Preferred Language: Palauan Communication Ability: Effective Academic Dean Required: No Review of Systems Constitutional: + fever and + weakness Eyes: no problem reported Ear, Nose, Mouth, Throat: no problem reported Respiratory: + dyspnea on exertion Cardiovascular: + dyspnea on exertion Gastrointestinal: no problem reported Genitourinary (Female): no problem reported Musculoskeletal: no problem reported Integumentary: as per Subjective / HPI Neurologic: no problem reported Psychiatric: no problem reported Poor glucose control Hematologic / Lymphatic: no problem reported Allergy / Immunological: no problem reported Physical Exam 2 Vital Signs (Past 24 Hours): Last Vital Signs Temp 36.6 C 10/07/18 05:04 Pulse 66 10/07/18 05:04 Resp 16 10/07/18 05:04 BP 127/70 10/07/18 05:04 Pulse Ox 99 10/07/18 05:04 Constitutional: WD/WN, vitals as above + morbidly obese and comfortable; no acute distress Eyes: PERRL, conjunctivae normal, anicteric sclerae ENMT: external ear and nose normal, oropharynx normal Neck: trachea midline, no thyromegaly neck nontender Respiratory: normal respiratory effort, lungs clear to auscultation normal percussion; does not use accessory muscles Cardiovascular: Rate/Rhythm: regular rate and regular rhythm Heart Sounds: normal S1 and normal S2; no gallop, no murmur and no cardiac rub Vessels: normal peripheral pulses; no JVD Gastrointestinal (Abdomen): normal bowel sounds, soft, nontender, no hepatosplenomegaly Musculoskeletal: no cyanosis or clubbing, extremities motor strength 5/5 Spine: thoracic spine normal to inspection and lumbar spine normal to inspection ; no cervical spinal tenderness Skin: no rashes, warm and dry Right foot with erythema and induration with plantar wound right third toe with redness and swelling of toes bilateral chronic venous stasis changes Neurologic: patellar DTR's 2+ bilat, sensation intact no focal motor deficits Psychiatric: A+Ox3, euthymic affect Orientation: cooperative Lymphatic: no cervical or axillary lymphadenopathy no inguinal lymphadenopathy Results & Data Laboratory Results Short CBC 10/06/18 Range/Units 21:25 WBC 9.63 (4.8-10.8) K/uL Hgb 12.7 (12.0-16.0) g/dL Hct 37.7 (37-47) % Plt Count 182 (130-400) K/uL BMP 10/06/18 10/07/18 21:25 05:17 Sodium 134 L 132 L Potassium 3.5 3.7 Chloride 93 L 95 L Carbon Dioxide 29 31 BUN 26 H 24 H Creatinine 1.56 H 1.31 H Glucose 144 H 242 H Calcium 9.1 8.7 Cardiac Enzymes 10/06/18 Range/Units 21:25 Total Creatine Kinase 104 (26-192) U/L Troponin I < 0.015 (0-0.045) ng/ml Liver Function 10/06/18 Range/Units 21:25 Total Bilirubin 0.8 (0.2-1) mg/dl AST 26 (15-37) U/L ALT 33 (12-78) U/L Alkaline Phosphatase 135 H (45-117) U/L Albumin 3.2 L (3.4-5.0) gm/dl Urine 10/06/18 Range/Units 22:40 Urine Color Yellow Urine Appearance Clear (Clear) Urine pH 5.0 (4.5-7.5) Ur Specific [place] 1.023 (1.000-1.030) Urine Protein 2+ H (Negative) Urine Glucose (UA) Negative (Negative) Diagnostic Findings Microbiology 10/06/18 21:39 Toe,Right Gram Stain - Final XR foot RT min 3V routine CLINICAL HISTORY: Right foot pain COMPARISON: 03/09/2017 DISCUSSION: The study is limited from a positioning standpoint secondary to extension at the level of the metatarsal phalangeal joints and flexion at the level of the interphalangeal joints. No acute fractures are visualized. There are degenerative changes in the midfoot. There are prominent calcaneal spurs. There are vascular calcifications present. There is dorsal soft tissue swelling. IMPRESSION: 1. No acute fractures 2. Large calcaneal spurs 3. Dorsal soft tissue swelling Electronically signed by: Jacob Horan M.D. 10/06/2018 10:06 PM
--- NOTE | 2018-10-07 10:58 | Family Medicine Progress Note ---
Date of Service October 07, 2018 Assessment & Plan (1) Cellulitis: Janelle Arellano is a 73-year-old female with a past medical history of congestive heart failure, A. fib anticoagulated with Xarelto, type 2 diabetes mellitus, COPD, hypothyroidism, and obesity who presented with right third toe pain after a toenail trim at podiatry and who was admitted for cellulitis. She received vancomycin, aztreonam, and ceftriaxone in the emergency department. She has been narrowed to aztreonam with a vancomycin consult. Cellulitis of right forefoot and third toe - Clinically improved today, but remains prominent - XR shows dorsal soft tissue swelling, no fxr or edema. 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 DM counseling and education tomorrow. Atrial fibrillation - Diltiazem 240mg PO qAM - Metoprolol 150mg qAM - Rivaroxaban 15mg PO daily Congestive heart failure - Last ECHO 11/13/2016: LVEF 55-60%, Moderate concentric LVH, normal LV side with grossly normal function, RV poorly visualized by function appeared reduced , RVSP mildly elevated. Limited study, no prior change from 11/17/2013. - Lungs clear without shortness of breath, dyspnea. Feels at her baseline fluid level, does not feel 'wet' - Continue bumetanide 2mg PO BID COPD - Albuterol Neb QID PRN, 2 puffs INH Q4H PRN - Arfomoterol 15mcg INH - Fluticasone HFA 1 puff INH ERVIN versus prerenal azotemia - Cr 1.31 (bl ~ 1.0) , BUN 24 - BMP daily Hypothyroidism - Synthroid 50mcg PO qAM Anxiety - Hydroxyzine 25mg QID PRN (2) Atrial fibrillation: (3) CHF (congestive heart failure): (4) COPD exacerbation: (5) Diabetes mellitus type 2, uncontrolled: (6) Hypothyroidism: Supervising Physician Co-Signing Physician Notes I personally examined the patient and verified all valladares points of history and exam, discussed case, and agree with decision making with Dr Bro. Patient seen briefly in follow-up from early a.m. admission. No new problems identified. Case discussed with resident. automobile sales consultant in the room whenever I see her the first time, she is being escorted to the bathroom with nursing the second time. Foot infectioncontinue current care and follow. Infectious disease input appreciated. Subjective Janelle reports she feels okay today. She notes her foot is less swollen than yesterday. When she came in it was very painful to the touch, and hurt with movement and was worsened by walking. Today it still feels fat and swollen, but it is not painful when she moves her toes. She notes she has chronic swelling in her legs and uses custom fit pressure stockings but that the swelling is at its normal baseline. She is not having difficulty breathing, and does not feel that she has more fluid than normal. Denies fever, chills, sweats, shortness of breath, chest pain, chest pressure, difficulty breathing, rash, abdominal pain, nausea, vomiting, diarrhea, constipation overnight. Endorses some fever and chills the night prior to presentation. She endorses that she is allergic to penicillins Physical Exam 2 Vital Signs (Past 24 Hours): Last Vital Signs Temp 36.6 C 10/07/18 05:04 Pulse 66 10/07/18 05:04 Resp 16 10/07/18 05:04 BP 127/70 10/07/18 05:04 Pulse Ox 99 10/07/18 05:04 Physical Exam: General: A&Ox3. NAD. Cooperative. HEENT: Atraumatic, normocephalic. Pulm: Moderate air movement, CTAB A&P. -wheezes, -rales, -rhonchi. Symmetrical chest rise. No increase work of breathing. No respiratory distress. Cardiac: RRR, -mrg. Extremity: Chronic venous stasis changes bilaterally. Right foot with swelling , erythema, mild warmth at the dorsal aspect of the forefoot and third toe. Small erosion on the medial aspect of the third toe. No tenderness to palpation today. 5/5 strength to dorsiflexion/plantar flexion at the ankle, toe flexion, toe extension without elicitation of pain with movements. Results & Data Laboratory Results Abnormal lab results 10/06/18 10/06/18 10/06/18 Range/Units 21:25 21:25 22:40 RDW Std Deviation 51.4 H (36.4-46.3) fL RDW Coeff of Davina 15.8 H (11.5-14.5) % Immature Gran # (Auto) 0.03 H (0.00-0.02) K/uL Neut # (Auto) 7.21 H (1.4-6.5) K/uL Sodium 134 L (136-145) mmol/L Chloride 93 L (98-107) mmol/L BUN 26 H (7-18) mg/dl Creatinine 1.56 H (0.6-1.2) mg/dl Glucose 144 H (70-99) mg/dl POC Glucose (70-99) Hemoglobin A1c (4.5-5.6) % Alkaline Phosphatase 135 H (45-117) U/L Albumin 3.2 L (3.4-5.0) gm/dl Globulin 4.4 H (2.5-4.0) gm/dl Albumin/Globulin Ratio 0.7 L (0.9-2) Urine Protein 2+ H (Negative) Urine Ketones Trace H (Negative) Urine Blood Trace H (Negative) Ur Leukocyte Esterase Trace H (Negative) Urine WBC (Auto) 5-10 H (0-5) /hpf U Hyaline Cast (Auto) 5-10 H (0-5) /lpf U Epithel Cells (Auto) >30 H (0-5) /lpf 10/07/18 10/07/18 10/07/18 Range/Units 01:22 05:17 05:17 RDW Std Deviation (36.4-46.3) fL RDW Coeff of Davina (11.5-14.5) % Immature Gran # (Auto) (0.00-0.02) K/uL Neut # (Auto) (1.4-6.5) K/uL Sodium 132 L (136-145) mmol/L Chloride 95 L (98-107) mmol/L BUN 24 H (7-18) mg/dl Creatinine 1.31 H (0.6-1.2) mg/dl Glucose 242 H (70-99) mg/dl POC Glucose 144 H (70-99) Hemoglobin A1c 8.5 H (4.5-5.6) % Alkaline Phosphatase (45-117) U/L Albumin (3.4-5.0) gm/dl Globulin (2.5-4.0) gm/dl Albumin/Globulin Ratio (0.9-2) Urine Protein (Negative) Urine Ketones (Negative) Urine Blood (Negative) Ur Leukocyte Esterase (Negative) Urine WBC (Auto) (0-5) /hpf U Hyaline Cast (Auto) (0-5) /lpf U Epithel Cells (Auto) (0-5) /lpf 10/07/18 10/07/18 Range/Units 07:17 10:52 RDW Std Deviation (36.4-46.3) fL RDW Coeff of Davina (11.5-14.5) % Immature Gran # (Auto) (0.00-0.02) K/uL Neut # (Auto) (1.4-6.5) K/uL Sodium (136-145) mmol/L Chloride (98-107) mmol/L BUN (7-18) mg/dl Creatinine (0.6-1.2) mg/dl Glucose (70-99) mg/dl POC Glucose 250 H 188 H (70-99) Hemoglobin A1c (4.5-5.6) % Alkaline Phosphatase (45-117) U/L Albumin (3.4-5.0) gm/dl Globulin (2.5-4.0) gm/dl Albumin/Globulin Ratio (0.9-2) Urine Protein (Negative) Urine Ketones (Negative) Urine Blood (Negative) Ur Leukocyte Esterase (Negative) Urine WBC (Auto) (0-5) /hpf U Hyaline Cast (Auto) (0-5) /lpf U Epithel Cells (Auto) (0-5) /lpf Medications Administered Current Inpatient Medications Acetaminophen (Tylenol) 500 mg PO Q4H PRN PRN Reason: Pain Stop: 11/06/18 04:24 Albuterol (Ventolin 0.083% 2.5mg/3ml) 2.5 mg INH QID PRN PRN Reason: Shortness Of Breath Or Wheezing Stop: 11/06/18 04:24 Albuterol (Ventolin Hfa) 2 puffs INH Q4H PRN PRN Reason: Shortness Of Breath Or Wheezing Stop: 11/06/18 04:24 Atorvastatin Calcium (Lipitor) 40 mg PO HS [facility] Stop: 11/06/18 20:59 Bumetanide (Bumex) 2 mg PO BID [facility] Stop: 11/06/18 08:59 Last Admin: 10/07/18 07:33 Dose: 2 mg Dextrose (Dextrose 50%) 25 - 50 ml IV UD PRN; Protocol PRN Reason: Hypoglycemia Protocol Stop: 11/06/18 04:24 Diltiazem HCl (Cardizem Cd) 240 mg PO QAM [facility] Stop: 11/06/18 08:59 Last Admin: 10/07/18 07:33 Dose: 240 mg Fluticasone Propionate (Flovent Hfa 110mch) 1 puffs INH BID [facility] Stop: 11/06/18 08:59 Last Admin: 10/07/18 07:28 Dose: 1 puffs Glucagon (Glucagen) 1 mg SQ UD PRN; Protocol PRN Reason: Hypoglycemia Protocol Stop: 11/06/18 04:24 Glucose (Glucose 40%) 15 - 30 gm PO UD PRN; Protocol PRN Reason: Hypoglycemia Protocol Stop: 11/06/18 04:24 Glucose (Dex4 Glucose) 4 - 8 tabs PO UD PRN; Protocol PRN Reason: Hypoglycemia Protocol Stop: 11/06/18 04:24 Aztreonam 2,000 mg/ Dextrose 110 mls @ 100 mls/hr IV Q8H [facility] Stop: 10/17/18 07:59 Last Infusion: 10/07/18 08:51 Dose: Infused Vancomycin HCl 2,000 mg/ (Sodium Chloride) 540 mls @ 200 mls/hr IV Q14H [facility]; Protocol Stop: 10/17/18 13:59 Insulin Human Isoph/Insulin Regular (Novolin 70/30 Regular) 85 units SC QDD [facility] Stop: 11/06/18 16:29 Insulin Human Isoph/Insulin Regular (Novolin 70/30 Regular) 82 units SC QDB [facility] Stop: 11/06/18 07:29 Last Admin: 10/07/18 07:34 Dose: 82 units Levothyroxine Sodium (Synthroid) 50 mcg PO DAILYBB [facility] Stop: 11/06/18 06:29 Last Admin: 10/07/18 06:36 Dose: 50 mcg Metoprolol Succinate (Toprol Xl) 150 mg PO QAM [facility] Stop: 11/06/18 08:59 Last Admin: 10/07/18 07:33 Dose: 150 mg Miscellaneous (Carbohydrates For Hypoglycemia) 15 - 30 gm PO UD PRN PRN Reason: Hypoglycemia Treatment Stop: 11/06/18 04:24 Miscellaneous Information (Consult) 1 ea N/A UD PRN PRN Reason: Consult Stop: 11/06/18 04:24 Pantoprazole Sodium (Protonix) 40 mg PO DAILY [facility] Stop: 11/06/18 08:59 Last Admin: 10/07/18 07:33 Dose: 40 mg Potassium Chloride (Klor-Con M10) 10 meq PO QAM [facility] Stop: 11/06/18 08:59 Last Admin: 10/07/18 07:33 Dose: 10 meq Rivaroxaban (Xarelto) 15 mg PO DAILY [facility] Stop: 11/06/18 08:59 Last Admin: 10/07/18 07:33 Dose: 15 mg _ (1) Cellulitis Laterality: right Site of cellulitis: extremity Site of cellulitis of extremity: toe Site of cellulitis of trunk: Qualified Code(s): L03.031 - Cellulitis of right toe
--- NOTE | 2018-10-07 12:21 | XRay Report ---
XR chest 1V portable CLINICAL HISTORY: 73 years-old Female presenting with right PICC tip placement. TECHNIQUE: Portable upright AP view of the chest was obtained. COMPARISON: 10/06/2018 at 9:42 PM. FINDINGS: Interval placement of a right upper extremity PICC, which terminates in the lower SVC. Atherosclerosi s of the aortic arch. Cardiac silhouette enlarged. Pulmonary vascular prominence slightly worsened fr om prior. No focal opacity. No large effusion or pneumothorax. Degenerative changes of the thoracic s pine. Several overlying external leads degrade evaluation. Upper abdomen normal. IMPRESSION: 1. Appropriately positioned right upper extremity PICC. 2. Cardiomegaly with volume overload, slightly worsened from prior. No ayleen pulmonary edema. Electronically signed by: Raymond Grajeda M.D. 10/07/2018 12:19 PM
[2018-10-07] MEDS: VANCOMYCIN HCL 2,000 MG in SODIUM CHLORIDE 0.9% 500 ML IV SCH (13:44)
--- NOTE | 2018-10-07 15:22 | Pharmacy Report ---
Pharmacy Abx Dose Short Note - Date of Service October 07, 2018 - Assessment & Plan Assessment * 73 yo F with hx diabetes admitted with cellulitis and abscess of toe * On aztreonam and vancomycin * R toe culture with Staph aureus, sensitivities pending * Per ID sap pp consultant, appears to be showing early response to current antibiotics * SCr trending down but still elevated from baseline Vancomycin * 20 mg/kg loading dose (max possible for patient weight) administered * Will continue with 15 mg/kg dosed at slightly more frequent interval than current estimated t1/2 would suggest as I am assuming the patient's renal function will continue to improve. Of note, the dose may need to be adjusted if SCr does not fall to baseline tomorrow * Trough prior to the 4th overall dose Plan * Vancomycin 2000 mg IV q14h * Trough 10/08 @ 1730 Pharmacy will continue to follow and will adjust dose/frequency as necessary. Thank you.
[2018-10-07] MEDS ORDERED: INSULIN HUMAN 70% NPH/30% REGULAR SC SCH (16:30)
--- NOTE | 2018-10-07 18:37 | Emergency Department Note ---
Entered by Sue Gordon acting as a scribe for History of Present Illness General Chief complaint: Wound Time Seen by Provider: 10/06/18 20:54 Source: patient Mode of arrival: EMS History of Present Illness Onset (ago): unknown (a few days ago ) Location: lower extremity and right Pain Consistency: + constant Quality: + other (cellulitis ) Associated symptoms: + denies other symptoms (abdominal pain) The patient is a 73 year old female who presents to the Emergency Room with complaints of constant right foot pain that started a few days ago. The patient reports she can barely walk on her foot secondary to pain. She states she was recently at the foot doctor to have an ingrown toe nail removed on her right first toe. She states she was not put on any antibiotics recently for her foot. She denies abdominal pain. The patient is on Xarelto for A-fib and CHF. She notes she is also on 3L of O2 at home. Home Medications Home Medications Medication Instructions Recorded Confirmed Type acetaminophen [Tylenol Extra 500 mg PO Q4H PRN 09/18/18 10/06/18 History Strength] albuterol sulfate 2.5 mg INHALATION QID PRN 09/18/18 10/06/18 History albuterol sulfate [ProAir HFA] 2 puff INHALATION Q4H PRN 09/18/18 10/06/18 History allopurinol 100 mg PO DAILY 09/18/18 10/06/18 History alprazolam 0.5 mg PO HS PRN 09/18/18 10/06/18 History arformoterol [Brovana] 15 mcg INHALATION BID 09/18/18 10/06/18 History atorvastatin 40 mg PO HS 09/18/18 10/06/18 History bumetanide 2 mg PO BID 09/18/18 10/06/18 History cholecalciferol (vitamin D3) 2,000 units PO QAM 09/18/18 10/06/18 History [Vitamin D3] fluticasone [Flovent HFA] 1 puff INHALATION BID 09/18/18 10/06/18 History hydrocortisone 1 applic TOPICAL BID PRN 09/18/18 10/06/18 History hydroxyzine HCl 25 mg PO QID PRN 09/18/18 10/06/18 History insulin NPH and regular human 82 units SUBCUT QAM 09/18/18 10/06/18 History [Humulin 70/30 U-100 KwikPen] insulin NPH and regular human 85 units SUBCUT QPM 09/18/18 10/06/18 History [Humulin 70/30 U-100 KwikPen] levothyroxine 50 mcg PO QAM 09/18/18 10/06/18 History magnesium oxide 400 mg PO DAILY@1200 09/18/18 10/06/18 History metformin 1,000 mg PO QAM 09/18/18 10/06/18 History metformin 500 mg PO QPM 09/18/18 10/06/18 History metoprolol succinate 150 mg PO QAM 09/18/18 10/06/18 History miconazole nitrate [Desenex] 1 applic TOPICAL BID PRN 09/18/18 10/06/18 History potassium chloride 10 meq PO QAM 09/18/18 10/06/18 History rivaroxaban [Xarelto] 15 mg PO DAILY 09/18/18 10/06/18 History benzonatate 100 mg PO TID PRN 10/06/18 10/06/18 History diltiazem HCl 240 mg PO QAM 10/06/18 10/06/18 History Allergies Allergy/AdvReac Type Severity Reaction Status Date / Time Penicillins Allergy Intermediate HIVES Verified 10/06/18 22:29 metronidazole AdvReac Unknown NAUSEA Verified 10/06/18 22:29 Past Med/Surg History Medical History Atrial fibrillation CHF (congestive heart failure) Social History marital status: Current Living Situation: Spouse Feels Safe at Home: Yes Safety Concerns: Feels Safe At This Time Smoking Status: Never smoker Hx Alcohol Use: No Hx Substance Use: No Beliefs That Will Affect Care: None Preferred Language: [place] Communication Ability: Effective Salary Manager Required: No Review of Systems See HPI for pertinent positives & negatives. and A total of 10 systems reviewed and were otherwise negative Physical Exam Vital Signs Vital Signs - 24 hr 10/06/18 20:40 10/06/18 21:45 10/06/18 22:01 Temperature 37.3 C Temperature Source Oral Sepsis Recent Fever Within 48 Hours No Sepsis New/Unexplained Change in Mental Status No Sepsis Action Taken by Nursing No Action Required Pulse Rate 78 72 Pulse Rate [Apical] 75 Pulse Rate [Bilateral Finger] Pulse Rhythm [Apical] Pulse Rhythm [Bilateral Finger] Pulse Strength [Apical] Pulse Strength [Bilateral Finger] Respiratory Rate 18 22 26 H Respiratory Effort / Characteristics Non-Labored Spontaneous Respiratory Depth Normal Respiratory Pattern Regular Blood Pressure 176/62 H 157/67 H Blood Pressure [Left Arm] Blood Pressure [Right Arm] 142/61 H Blood Pressure Mean 100 97 Blood Pressure Mean [Left Arm] Blood Pressure Mean [Right Arm] 88 Blood Pressure Position [Left Arm] Pulse Oximetry 98 97 97 Oxygen Delivery Method Nasal Cannula Nasal Cannula Nasal Cannula Oxygen Flow Rate 3 3 10/07/18 00:00 10/07/18 00:58 10/07/18 02:07 Temperature Temperature Source Sepsis Recent Fever Within 48 Hours Sepsis New/Unexplained Change in Mental Status Sepsis Action Taken by Nursing Pulse Rate Pulse Rate [Apical] 88 72 68 Pulse Rate [Bilateral Finger] Pulse Rhythm [Apical] Regular Regular Regular Pulse Rhythm [Bilateral Finger] Pulse Strength [Apical] Normal Normal Normal Pulse Strength [Bilateral Finger] Respiratory Rate 16 19 18 Respiratory Effort / Characteristics Non-Labored Spontaneous Non-Labored Spontaneous Non-Labored Spontaneous Respiratory Depth Normal Normal Normal Respiratory Pattern Regular Regular Regular Blood Pressure Blood Pressure [Left Arm] Blood Pressure [Right Arm] 151/71 H 148/51 H Blood Pressure Mean Blood Pressure Mean [Left Arm] Blood Pressure Mean [Right Arm] 97 83 Blood Pressure Position [Left Arm] Pulse Oximetry 99 99 99 Oxygen Delivery Method Nasal Cannula Nasal Cannula Oxygen Flow Rate 3 3 10/07/18 02:34 10/07/18 03:23 10/07/18 05:01 Temperature Temperature Source Sepsis Recent Fever Within 48 Hours Sepsis New/Unexplained Change in Mental Status Sepsis Action Taken by Nursing Pulse Rate 71 Pulse Rate [Apical] 77 64 Pulse Rate [Bilateral Finger] Pulse Rhythm [Apical] Regular Pulse Rhythm [Bilateral Finger] Pulse Strength [Apical] Normal Pulse Strength [Bilateral Finger] Respiratory Rate 20 20 Respiratory Effort / Characteristics Non-Labored Spontaneous Respiratory Depth Normal Respiratory Pattern Regular Blood Pressure Blood Pressure [Left Arm] Blood Pressure [Right Arm] 129/77 Blood Pressure Mean Blood Pressure Mean [Left Arm] Blood Pressure Mean [Right Arm] 94 Blood Pressure Position [Left Arm] Pulse Oximetry 95 99 Oxygen Delivery Method Nasal Cannula Room Air Oxygen Flow Rate 3 10/07/18 05:02 10/07/18 05:03 10/07/18 05:04 Temperature 36.6 C 36.6 C Temperature Source Oral Oral Sepsis Recent Fever Within 48 Hours Sepsis New/Unexplained Change in Mental Status Sepsis Action Taken by Nursing Pulse Rate Pulse Rate [Apical] Pulse Rate [Bilateral Finger] 66 66 Pulse Rhythm [Apical] Pulse Rhythm [Bilateral Finger] Regular Regular Pulse Strength [Apical] Pulse Strength [Bilateral Finger] Normal Normal Respiratory Rate 18 16 Respiratory Effort / Characteristics Non-Labored Spontaneous Non-Labored Spontaneous Non-Labored Spontaneous Respiratory Depth Normal Normal Normal Respiratory Pattern Regular Regular Regular Blood Pressure Blood Pressure [Left Arm] 127/70 127/70 Blood Pressure [Right Arm] Blood Pressure Mean Blood Pressure Mean [Left Arm] 89 89 Blood Pressure Mean [Right Arm] Blood Pressure Position [Left Arm] Semi-fowlers Lying Pulse Oximetry 99 99 Oxygen Delivery Method Nasal Cannula Nasal Cannula Nasal Cannula Oxygen Flow Rate 3 3 3 10/07/18 09:03 10/07/18 16:30 10/07/18 17:03 Temperature 36.5 C Temperature Source Oral Sepsis Recent Fever Within 48 Hours Sepsis New/Unexplained Change in Mental Status Sepsis Action Taken by Nursing Pulse Rate 82 Pulse Rate [Apical] Pulse Rate [Bilateral Finger] 72 Pulse Rhythm [Apical] Pulse Rhythm [Bilateral Finger] Pulse Strength [Apical] Pulse Strength [Bilateral Finger] Respiratory Rate 18 Respiratory Effort / Characteristics Non-Labored Respiratory Depth Normal Respiratory Pattern Blood Pressure Blood Pressure [Left Arm] Blood Pressure [Right Arm] Blood Pressure Mean Blood Pressure Mean [Left Arm] Blood Pressure Mean [Right Arm] Blood Pressure Position [Left Arm] Pulse Oximetry 99 Oxygen Delivery Method Nasal Cannula Nasal Cannula Oxygen Flow Rate 3 2 GENERAL: Awake, alert, well-appearing, in no acute distress HENT: Normocephalic, atraumatic. Oropharynx unremarkable. EYES: Normal conjunctiva. Sclera non-icteric. NECK: Supple. No nuchal rigidity. FROM. No JVD. RESPIRATORY: Clear to auscultation. CARDIAC: Regular rate, normal rhythm. Extremities warm and well perfused. Pulses equal. ABDOMEN: Soft, non-distended. No tenderness to palpation. No rebound or guarding. No masses. RECTAL: Deferred. MUSCULOSKELETAL: Chest examination reveals no tenderness. The back is symmetrical on inspection without obvious abnormality. There is no CVA tenderness to palpation. No joint edema. LOWER EXTREMITIES: Calves are equal size bilaterally and non-tender. Dime sized ulcer to the third toe, toe itself is discolored and purple. There is cellulitis moving up the foot itself. NEURO: Normal sensorium. No sensory or motor deficits noted. SKIN: No rash or jaundice noted. Course 2053: Past medical records reviewed. The patient was evaluated in room C1B, and a complete history and physical examination were performed. 2329: I reviewed the patient's case with Dr. Mak, [facility] Hospitalist. He agrees to evaluate the patient for further management. Administered Medications Bumetanide (Bumex) 2 mg PO BID [facility] Stop: 11/06/18 08:59 Last Admin: 10/07/18 07:33 Dose: 2 mg Diltiazem HCl (Cardizem Cd) 240 mg PO QAM DYLAN Stop: 11/06/18 08:59 Last Admin: 10/07/18 07:33 Dose: 240 mg Fluticasone Propionate (Flovent Hfa 110mch) 1 puffs INH BID [facility] Stop: 11/06/18 08:59 Last Admin: 10/07/18 07:28 Dose: 1 puffs Heparin Sodium (Beef Lung) (Heparin Sod 10 Unit/Ml Flush) 5 ml FLUSH PRN PRN PRN Reason: PICC Line Last Admin: 10/07/18 17:46 Dose: 5 ml Aztreonam 2,000 mg/ Dextrose 110 mls @ 100 mls/hr IV Q8H [facility] Stop: 10/17/18 07:59 Last Infusion: 10/07/18 17:45 Dose: 0 mls/hr Admin: 10/07/18 16:30 Dose: 100 mls/hr Infusion: 10/07/18 08:51 Dose: 0 mls/hr Admin: 10/07/18 07:34 Dose: 100 mls/hr Vancomycin HCl 2,000 mg/ (Sodium Chloride) 540 mls @ 200 mls/hr IV Q14H [facility]; Protocol Stop: 10/17/18 13:59 Last Infusion: 10/07/18 16:29 Dose: 0 mls/hr Admin: 10/07/18 13:44 Dose: 200 mls/hr Insulin Human Isoph/Insulin Regular (Novolin 70/30 Regular) 85 units SC QDD [facility] Stop: 11/06/18 16:29 Last Admin: 10/07/18 17:19 Dose: 85 units Insulin Human Isoph/Insulin Regular (Novolin 70/30 Regular) 82 units SC QDB [facility] Stop: 11/06/18 07:29 Last Admin: 10/07/18 07:34 Dose: 82 units Levothyroxine Sodium (Synthroid) 50 mcg PO DAILYBB [facility] Stop: 11/06/18 06:29 Last Admin: 10/07/18 06:36 Dose: 50 mcg Metoprolol Succinate (Toprol Xl) 150 mg PO QAM [facility] Stop: 11/06/18 08:59 Last Admin: 10/07/18 07:33 Dose: 150 mg Pantoprazole Sodium (Protonix) 40 mg PO DAILY [facility] Stop: 11/06/18 08:59 Last Admin: 10/07/18 07:33 Dose: 40 mg Potassium Chloride (Klor-Con M10) 10 meq PO QAM [facility] Stop: 11/06/18 08:59 Last Admin: 10/07/18 07:33 Dose: 10 meq Rivaroxaban (Xarelto) 15 mg PO DAILY [facility] Stop: 11/06/18 08:59 Last Admin: 10/07/18 07:33 Dose: 15 mg Discontinued Medications Ceftriaxone Sodium (Rocephin) 1,000 mg in 50 mls @ 100 mls/hr IV NOW STA Stop: 10/06/18 21:34 Last Infusion: 10/06/18 22:21 Dose: 0 mls/hr Admin: 10/06/18 21:51 Dose: 100 mls/hr Vancomycin HCl 2,750 mg/ (Sodium Chloride) 555 mls @ 200 mls/hr IV NOW ONE Stop: 10/07/18 02:03 Last Infusion: 10/07/18 05:00 Dose: 0 mls/hr Admin: 10/07/18 01:25 Dose: 200 mls/hr Aztreonam 2,000 mg/ Dextrose 110 mls @ 100 mls/hr IV NOW STA Stop: 10/07/18 00:43 Last Infusion: 10/07/18 01:25 Dose: 0 mls/hr Admin: 10/07/18 00:24 Dose: 100 mls/hr Medical Decision Making Differential Diagnosis Differential diagnosis includes: Etiologies such as cellulitis, abscess, MRSA infection, DVT, necrotizing fasciitis, dermatitis, drug eruption, as well as others were entertained. Medical Records Attestation: I reviewed the patient's medical records. Home Medications Current Medication List: was personally reviewed by me Laboratory Data Attestation: I reviewed the patient's lab results. Result diagrams: 10/06/18 21:25 10/07/18 05:17 Lab Results 10/06/18 10/06/18 10/06/18 Range/Units 21:25 21:25 22:40 WBC 9.63 (4.8-10.8) K/uL RBC 4.21 (4.2-5.4) M/uL Hgb 12.7 (12.0-16.0) g/dL Hct 37.7 (37-47) % MCV 89.5 (80-100) fL MCH 30.2 (25-34) pg MCHC 33.7 (32-36) g/dL RDW Std Deviation 51.4 H (36.4-46.3) fL RDW Coeff of Davina 15.8 H (11.5-14.5) % Plt Count 182 (130-400) K/uL MPV 9.8 (7.4-10.4) fL Immature Gran % (Auto) 0.3 % Neut % (Auto) 75.0 % Lymph % (Auto) 17.2 % [place] % (Auto) 6.1 % Eos % (Auto) 0.9 % Baso % (Auto) 0.5 % Immature Gran # (Auto) 0.03 H (0.00-0.02) K/uL Neut # (Auto) 7.21 H (1.4-6.5) K/uL Lymph # (Auto) 1.66 (1.2-3.4) K/uL [place] # (Auto) 0.59 (0.11-0.59) K/uL Eos # (Auto) 0.09 (0-0.5) K/uL Baso # (Auto) 0.05 (0-0.2) K/uL Sodium 134 L (136-145) mmol/L Potassium 3.5 (3.5-5.1) mmol/L Chloride 93 L (98-107) mmol/L Carbon Dioxide 29 (21-32) mmol/L Anion Gap 11.0 (3-11) BUN 26 H (7-18) mg/dl Creatinine 1.56 H (0.6-1.2) mg/dl Est Cr Clr Drug Dosing 42.0 ml/min Est GFR ( Amer) 37.5 Est GFR (Non-Af Amer) 32.4 BUN/Creatinine Ratio 16.3 (10-20) Glucose 144 H (70-99) mg/dl POC Glucose (70-99) Estimat Average Glucose mg/dl Hemoglobin A1c (4.5-5.6) % Calcium 9.1 (8.5-10.1) mg/dl Total Bilirubin 0.8 (0.2-1) mg/dl AST 26 (15-37) U/L ALT 33 (12-78) U/L Alkaline Phosphatase 135 H (45-117) U/L Total Creatine Kinase 104 (26-192) U/L Troponin I < 0.015 (0-0.045) ng/ml Total Protein 7.6 (6.4-8.2) gm/dl Albumin 3.2 L (3.4-5.0) gm/dl Globulin 4.4 H (2.5-4.0) gm/dl Albumin/Globulin Ratio 0.7 L (0.9-2) TSH 2.670 (0.300-4.500) uIu/ml Urine Color Yellow Urine Appearance Clear (Clear) Urine pH 5.0 (4.5-7.5) Ur Specific [place] 1.023 (1.000-1.030) Urine Protein 2+ H (Negative) Urine Glucose (UA) Negative (Negative) Urine Ketones Trace H (Negative) Urine Blood Trace H (Negative) Urine Nitrite Negative (Negative) Urine Bilirubin Negative (Negative) Urine Urobilinogen Negative (Negative) Ur Leukocyte Esterase Trace H (Negative) Urine WBC (Auto) 5-10 H (0-5) /hpf Urine RBC (Auto) 0-4 (0-4) /hpf U Hyaline Cast (Auto) 5-10 H (0-5) /lpf U Epithel Cells (Auto) >30 H (0-5) /lpf Urine Bacteria (Auto) Negative (Negative) 10/07/18 10/07/18 10/07/18 Range/Units 01:22 05:17 05:17 WBC (4.8-10.8) K/uL RBC (4.2-5.4) M/uL Hgb (12.0-16.0) g/dL Hct (37-47) % MCV (80-100) fL MCH (25-34) pg MCHC (32-36) g/dL RDW Std Deviation (36.4-46.3) fL RDW Coeff of Davina (11.5-14.5) % Plt Count (130-400) K/uL MPV (7.4-10.4) fL Immature Gran % (Auto) % Neut % (Auto) % Lymph % (Auto) % [place] % (Auto) % Eos % (Auto) % Baso % (Auto) % Immature Gran # (Auto) (0.00-0.02) K/uL Neut # (Auto) (1.4-6.5) K/uL Lymph # (Auto) (1.2-3.4) K/uL [place] # (Auto) (0.11-0.59) K/uL Eos # (Auto) (0-0.5) K/uL Baso # (Auto) (0-0.2) K/uL Sodium 132 L (136-145) mmol/L Potassium 3.7 (3.5-5.1) mmol/L Chloride 95 L (98-107) mmol/L Carbon Dioxide 31 (21-32) mmol/L Anion Gap 6.0 (3-11) BUN 24 H (7-18) mg/dl Creatinine 1.31 H (0.6-1.2) mg/dl Est Cr Clr Drug Dosing 49.9 ml/min Est GFR ( Amer) 46.4 Est GFR (Non-Af Amer) 40.0 BUN/Creatinine Ratio 18.2 (10-20) Glucose 242 H (70-99) mg/dl POC Glucose 144 H (70-99) Estimat Average Glucose 197 mg/dl Hemoglobin A1c 8.5 H (4.5-5.6) % Calcium 8.7 (8.5-10.1) mg/dl Total Bilirubin (0.2-1) mg/dl AST (15-37) U/L ALT (12-78) U/L Alkaline Phosphatase (45-117) U/L Total Creatine Kinase (26-192) U/L Troponin I (0-0.045) ng/ml Total Protein (6.4-8.2) gm/dl Albumin (3.4-5.0) gm/dl Globulin (2.5-4.0) gm/dl Albumin/Globulin Ratio (0.9-2) TSH (0.300-4.500) uIu/ml Urine Color Urine Appearance (Clear) Urine pH (4.5-7.5) Ur Specific [place] (1.000-1.030) Urine Protein (Negative) Urine Glucose (UA) (Negative) Urine Ketones (Negative) Urine Blood (Negative) Urine Nitrite (Negative) Urine Bilirubin (Negative) Urine Urobilinogen (Negative) Ur Leukocyte Esterase (Negative) Urine WBC (Auto) (0-5) /hpf Urine RBC (Auto) (0-4) /hpf U Hyaline Cast (Auto) (0-5) /lpf U Epithel Cells (Auto) (0-5) /lpf Urine Bacteria (Auto) (Negative) 10/07/18 10/07/18 10/07/18 Range/Units 07:17 10:52 16:27 WBC (4.8-10.8) K/uL RBC (4.2-5.4) M/uL Hgb (12.0-16.0) g/dL Hct (37-47) % MCV (80-100) fL MCH (25-34) pg MCHC (32-36) g/dL RDW Std Deviation (36.4-46.3) fL RDW Coeff of Davina (11.5-14.5) % Plt Count (130-400) K/uL MPV (7.4-10.4) fL Immature Gran % (Auto) % Neut % (Auto) % Lymph % (Auto) % [place] % (Auto) % Eos % (Auto) % Baso % (Auto) % Immature Gran # (Auto) (0.00-0.02) K/uL Neut # (Auto) (1.4-6.5) K/uL Lymph # (Auto) (1.2-3.4) K/uL [place] # (Auto) (0.11-0.59) K/uL Eos # (Auto) (0-0.5) K/uL Baso # (Auto) (0-0.2) K/uL Sodium (136-145) mmol/L Potassium (3.5-5.1) mmol/L Chloride (98-107) mmol/L Carbon Dioxide (21-32) mmol/L Anion Gap (3-11) BUN (7-18) mg/dl Creatinine (0.6-1.2) mg/dl Est Cr Clr Drug Dosing ml/min Est GFR ( Amer) Est GFR (Non-Af Amer) BUN/Creatinine Ratio (10-20) Glucose (70-99) mg/dl POC Glucose 250 H 188 H 185 H (70-99) Estimat Average Glucose mg/dl Hemoglobin A1c (4.5-5.6) % Calcium (8.5-10.1) mg/dl Total Bilirubin (0.2-1) mg/dl AST (15-37) U/L ALT (12-78) U/L Alkaline Phosphatase (45-117) U/L Total Creatine Kinase (26-192) U/L Troponin I (0-0.045) ng/ml Total Protein (6.4-8.2) gm/dl Albumin (3.4-5.0) gm/dl Globulin (2.5-4.0) gm/dl Albumin/Globulin Ratio (0.9-2) TSH (0.300-4.500) uIu/ml Urine Color Urine Appearance (Clear) Urine pH (4.5-7.5) Ur Specific [place] (1.000-1.030) Urine Protein (Negative) Urine Glucose (UA) (Negative) Urine Ketones (Negative) Urine Blood (Negative) Urine Nitrite (Negative) Urine Bilirubin (Negative) Urine Urobilinogen (Negative) Ur Leukocyte Esterase (Negative) Urine WBC (Auto) (0-5) /hpf Urine RBC (Auto) (0-4) /hpf U Hyaline Cast (Auto) (0-5) /lpf U Epithel Cells (Auto) (0-5) /lpf Urine Bacteria (Auto) (Negative) Imaging Data Radiologist's Impression: Radiology results as stated below per my review and the radiologist's interpretation: XR chest 1V portable CLINICAL HISTORY: weakness COMPARISON STUDY: 09/18/2018 FINDINGS: The heart remains enlarged. There is no focal pulmonary consolidation. There is no overt failure. There are no significant pleural effusions. There is minor left basilar atelectasis.[ IMPRESSION: 1. Stable cardiomegaly 2. Minor left basilar atelectasis 3. No evidence of acute parenchymal consolidation. No evidence of overt failure Electronically signed by: Jacob Horan M.D. 10/06/2018 10:04 PM XR foot RT min 3V routine CLINICAL HISTORY: Right foot pain COMPARISON: 03/09/2017 DISCUSSION: The study is limited from a positioning standpoint secondary to extension at the level of the metatarsal phalangeal joints and flexion at the level of the interphalangeal joints. No acute fractures are visualized. There are degenerative changes in the midfoot. There are prominent calcaneal spurs. There are vascular calcifications present. There is dorsal soft tissue swelling. IMPRESSION: 1. No acute fractures 2. Large calcaneal spurs 3. Dorsal soft tissue swelling Electronically signed by: Jacob Horan M.D. 10/06/2018 10:06 PM US VENOUS RIGHT LOWER EXTREMITY: No evidence of DVT in the right lower extremity. Radiologist: Majo Caballero MD. ECG Data Attestation: I personally reviewed and interpreted this ECG as follows: Indication: weakness Rate (beats per minute): 72 Rhythm: sinus rhythm Findings: + 1st degree AV block; no ST depression and no ST elevation Blood Pressure Blood Pressure Findings: Elevated blood pressure Blood Pressure Disposition: further management by hospitalist MDM Narrative This is a 73-year-old female who presents emergency department complaining of what appears to be a gangrenous lesion to her third toe. The patient also has a cellulitis extending up to her right knee. She does not have an elevation in her white blood cell count however I am worried that the toe is gangrenous. Her BUN and creatinine are also slightly elevated. Patient was given Rocephin and aztreonam as well as vancomycin here in the emergency department. She was sent for an ultrasound of the leg which did not show any evidence of DVT. I do believe that the patient can be safely admitted to the hospitalist service who agreed to admit the patient. Patient and family are in agreement with the treatment plan. Impression & Plan Cellulitis Discharge Plan Visit Data *Final* Discharge Date/Time: 10/07/18 03:55 Chief Complaint: Wound ED Provider: Moiz Dawson Discharge Problem: Cellulitis Patient Disposition: Admitted As Inpatient Discharge Instructions Interventions: ED Discharge Assessment Last Done: 10/07/18 03:55 The scribe's documentation has been prepared under my direction and personally reviewed by me in its entirety. I confirm that the note above accurately reflects all work, treatment, procedures, and medical decision making performed by me.
[2018-10-07] MEDS: ACETAMINOPHEN 500 MG TAB PO PRN (19:48)
[2018-10-07] MEDS: ATORVASTATIN 40 MG TAB PO SCH (20:59)
[2018-10-08] MEDS: VANCOMYCIN HCL 2,000 MG in SODIUM CHLORIDE 0.9% 500 ML IV SCH ×2 (04:33→17:53)
[2018-10-08] MEDS: LEVOTHYROXINE SODIUM 50 MCG TABLET PO SCH (05:52)
[2018-10-08 06:32] LABS: Basophils # (auto) 0.05 K/uL (0-0.2); Basophils % (auto) 0.8 %; Eosinophils # (auto) 0.19 K/uL (0-0.5); Eosinophils % (auto) 3.2 %; Hematocrit (blood only) 35.7 % (37-47); Hemoglobin 11.5 g/dL (12.0-16.0); Immature Granulocytes # (auto) 0.03 K/uL (0.00-0.02); Immature Granulocytes % (auto) 0.5 %; Lymphocytes # (auto) 1.43 K/uL (1.2-3.4); Lymphocytes % (auto) 23.9 %; Mean Corpuscular Hgb Conc 32.2 g/dL (32-36); Mean Corpuscular Volume 89.9 fL (80-100); Mean Platelet Volume 9.5 fL (7.4-10.4); Monocytes # (auto) 0.58 K/uL (0.11-0.59); Monocytes % (auto) 9.7 %; Neutrophils # (auto) 3.71 K/uL (1.4-6.5); Neutrophils % (auto) 61.9 %; Platelet Count 159 K/uL (130-400); RDW Coefficient of Variation 15.6 % (11.5-14.5); RDW Standard Deviation 50.6 fL (36.4-46.3); Red Blood Count 3.97 M/uL (4.2-5.4); White Blood Count 5.99 K/uL (4.8-10.8)
[2018-10-08 07:06] LABS: Creatinine Clr Calc Pharmacy 63.4 ml/min; Est GFR (Non-African American) 53.5
[2018-10-08] MEDS: FLUTICASONE HFA 110MCG INHALER INH SCH ×2 (07:43→20:43)
[2018-10-08] MEDS: AZTREONAM 2,000 MG in DEXTROSE 5% 100 ML IV SCH ×2 (07:43→15:50)
[2018-10-08] MEDS: INSULIN HUMAN 70% NPH/30% REGULAR SC SCH (07:44)
[2018-10-08] MEDS: POTASSIUM CHLORIDE 10 MEQ TABCR PO SCH (07:45)
[2018-10-08] MEDS: RIVAROXABAN 15 MG TAB PO SCH (07:45)
[2018-10-08] MEDS: PANTOprazole 40 MG TAB PO SCH (07:45)
[2018-10-08] MEDS: METOPROLOL SUCC 50MG EXT REL TAB PO SCH (07:45)
[2018-10-08] MEDS: dilTIAZem HCL 240 MG CAPCR PO SCH (07:45)
[2018-10-08] MEDS: BUMETANIDE 1 MG TAB PO SCH ×2 (07:45→20:47)
--- NOTE | 2018-10-08 11:13 | Family Medicine Progress Note ---
Date of Service October 08, 2018 Assessment & Plan (1) Cellulitis: Janelle Arellano is a 73-year-old female with a past medical history of congestive heart failure, A. fib anticoagulated with Xarelto, type 2 diabetes mellitus, COPD, hypothyroidism, and obesity who presented with right third toe pain after a toenail trim at podiatry and who was admitted for cellulitis. She received vancomycin, aztreonam, and ceftriaxone in the emergency department. She has been narrowed to aztreonam with a vancomycin consult. Cellulitis of right forefoot and third toe - Clinically improved today, but remains prominent - XR shows dorsal soft tissue swelling, no fxr or edema. - Doppler shows no leg DVT - s/p Vacn + Ceftri + aztreonam in ED - MRSA postive culture - Continuing vanc/aztreonam for 1-2 more days per ID then will convert to TMP/ SMX Type 2 diabetes mellitus - Held [employer] metformin - Her diabetic control appears is poor on 70/30 with an A1C of 8.5% - [employer] Insulin NPH/Regular 70/30 82u qAM, 85u qPM - Convert to basal bolus as follows: - Glargine 90u qAM + Aspart 30 TID with meals - Bridge evening insulin with NPH until starting lantus tomorrow morning - Reports her diet at home is very similar to hospital diet, will not have parameters on aspart other than NPO as if she is going to run low would rather be able to see it here and adjust regimen accordingly Atrial fibrillation - Diltiazem 240mg PO qAM - Metoprolol 150mg qAM - Rivaroxaban 15mg PO daily Congestive heart failure - Last ECHO 11/13/2016: LVEF 55-60%, Moderate concentric LVH, normal LV side with grossly normal function, RV poorly visualized by function appeared reduced , RVSP mildly elevated. Limited study, no prior change from 11/17/2013. - Lungs clear without shortness of breath, dyspnea. Feels at her baseline fluid level, does not feel 'wet' - Continue bumetanide 2mg PO BID COPD - Albuterol Neb QID PRN, 2 puffs INH Q4H PRN - Arfomoterol 15mcg INH - Fluticasone HFA 1 puff INH ERVIN versus prerenal azotemia - Cr 1.31 (bl ~ 1.0) , BUN 24 - BMP daily Hypothyroidism - Synthroid 50mcg PO qAM Anxiety - Hydroxyzine 25mg QID PRN (2) Atrial fibrillation: (3) CHF (congestive heart failure): (4) COPD exacerbation: (5) Diabetes mellitus type 2, uncontrolled: (6) Hypothyroidism: Supervising Physician Co-Signing Physician Notes I personally examined the patient and verified all valladares points of history and exam, discussed case, and agree with decision making with Dr Bro. Foot feeling better, she does note that it is more red and swollen whenever she leaves and hanging down this improves once it is up again, and definitely overall is better than before she came in. Vitals noted, in general she is awake and alert pleasant no distress. Right foot has a small area of erythema on the dorsum stretching from the toe forward to about the midfoot. There is no crepitus it seems to be minimally tender. Foot infection-continue IV antibiotics, hopefully home on Bactrim tomorrow Uncontrolled type 2 diabetes on insulinDr. Dieudonne discussed extensively switching to a basal bolus regimen and she is interested. Otherwise as above Subjective Janelle feels her foot is much better today. She denies fever, chills, sweats, shortness of breath, chest pain, chest pressure, abdominal pain, nausea, vomiting, diarrhea, constipation, rash, throat swelling, headache. Endorses some decreased feeling in her feet at baseline, no new numbness/tingling. Discussed insulin regimen at length. Her was on lantus, she has been on 70/30 insulin for a long time with the exceptions of a few formulary changes. She reports she is frustrated by her high A1C, and keeps a home diet almost the same as her hospital diabetic diet. She denies hypoglycemic lows at home. Physical Exam 2 Vital Signs (Past 24 Hours): Last Vital Signs Temp 36.8 C 10/08/18 06:38 Pulse 75 10/08/18 06:38 Resp 20 10/08/18 06:38 BP 176/71 H 10/08/18 06:38 Pulse Ox 97 10/08/18 06:38 Physical Exam: General: A&Ox3. NAD. Cooperative. HEENT: Atraumatic, normocephalic. Pulm: Moderate air movement, CTAB A&P. -wheezes, -rales, -rhonchi. Symmetrical chest rise. No increase work of breathing. No respiratory distress. Cardiac: RRR, -mrg. Extremity: Chronic venous stasis changes bilaterally. Right foot with swelling , erythema, mild warmth at the dorsal aspect of the forefoot and third toe improved and less prominant from yesterday. Results & Data Laboratory Results Abnormal lab results 10/07/18 10/08/18 10/08/18 Range/Units 19:34 06:19 07:03 RBC 3.97 L (4.2-5.4) M/uL Hgb 11.5 L (12.0-16.0) g/dL Hct 35.7 L (37-47) % RDW Std Deviation 50.6 H (36.4-46.3) fL RDW Coeff of Davina 15.6 H (11.5-14.5) % Immature Gran # (Auto) 0.03 H (0.00-0.02) K/uL POC Glucose 219 H 148 H (70-99) 10/08/18 10/08/18 Range/Units 10:54 16:04 RBC (4.2-5.4) M/uL Hgb (12.0-16.0) g/dL Hct (37-47) % RDW Std Deviation (36.4-46.3) fL RDW Coeff of Davina (11.5-14.5) % Immature Gran # (Auto) (0.00-0.02) K/uL POC Glucose 159 H 183 H (70-99) Medications Administered Current Inpatient Medications Acetaminophen (Tylenol) 500 mg PO Q4H PRN PRN Reason: Pain Stop: 11/06/18 04:24 Last Admin: 10/08/18 12:45 Dose: 500 mg Albuterol (Ventolin 0.083% 2.5mg/3ml) 2.5 mg INH QID PRN PRN Reason: Shortness Of Breath Or Wheezing Stop: 11/06/18 04:24 Albuterol (Ventolin Hfa) 2 puffs INH Q4H PRN PRN Reason: Shortness Of Breath Or Wheezing Stop: 11/06/18 04:24 Atorvastatin Calcium (Lipitor) 40 mg PO HS [facility] Stop: 11/06/18 20:59 Last Admin: 10/07/18 20:59 Dose: 40 mg Bumetanide (Bumex) 2 mg PO BID [facility] Stop: 11/06/18 08:59 Last Admin: 10/08/18 07:45 Dose: 2 mg Dextrose (Dextrose 50%) 25 - 50 ml IV UD PRN; Protocol PRN Reason: Hypoglycemia Protocol Stop: 11/06/18 04:24 Diltiazem HCl (Cardizem Cd) 240 mg PO QAM [facility] Stop: 11/06/18 08:59 Last Admin: 10/08/18 07:45 Dose: 240 mg Fluticasone Propionate (Flovent Hfa 110mch) 1 puffs INH BID [facility] Stop: 11/06/18 08:59 Last Admin: 10/08/18 07:43 Dose: 1 puffs Glucagon (Glucagen) 1 mg SQ UD PRN; Protocol PRN Reason: Hypoglycemia Protocol Stop: 11/06/18 04:24 Glucose (Glucose 40%) 15 - 30 gm PO UD PRN; Protocol PRN Reason: Hypoglycemia Protocol Stop: 11/06/18 04:24 Glucose (Dex4 Glucose) 4 - 8 tabs PO UD PRN; Protocol PRN Reason: Hypoglycemia Protocol Stop: 11/06/18 04:24 Heparin Sodium (Beef Lung) (Heparin Sod 10 Unit/Ml Flush) 5 ml FLUSH PRN PRN PRN Reason: PICC Line Last Admin: 10/08/18 18:49 Dose: 5 ml Aztreonam 2,000 mg/ Dextrose 110 mls @ 100 mls/hr IV Q8H [facility] Stop: 10/17/18 07:59 Last Infusion: 10/08/18 17:14 Dose: Infused Vancomycin HCl 1,750 mg/ (Sodium Chloride) 535 mls @ 200 mls/hr IV Q18H [facility]; Protocol Stop: 10/19/18 13:59 Insulin Aspart (Novolog Flexpen) 0 units SC ACHS [facility] Stop: 11/07/18 11:29 Last Admin: 10/08/18 16:22 Dose: 1 units Insulin Aspart (Novolog Flexpen) 30 units SC AC [facility] Stop: 11/07/18 16:29 Last Admin: 10/08/18 16:22 Dose: 30 units Insulin Glargine (Lantus) 90 units SC QAM [facility] Stop: 11/08/18 08:59 Insulin Human NPH (Novolin N U-100 Nph Per Unit) 20 units SC QDD ONE Stop: 10/09/18 16:31 Levothyroxine Sodium (Synthroid) 50 mcg PO DAILYBB [facility] Stop: 11/06/18 06:29 Last Admin: 10/08/18 05:52 Dose: 50 mcg Metoprolol Succinate (Toprol Xl) 150 mg PO QAM [facility] Stop: 11/06/18 08:59 Last Admin: 10/08/18 07:45 Dose: 150 mg Miscellaneous (Carbohydrates For Hypoglycemia) 15 - 30 gm PO UD PRN PRN Reason: Hypoglycemia Treatment Stop: 11/06/18 04:24 Miscellaneous Information (Consult) 1 ea N/A UD PRN PRN Reason: Consult Stop: 11/06/18 04:24 Pantoprazole Sodium (Protonix) 40 mg PO DAILY [facility] Stop: 11/06/18 08:59 Last Admin: 10/08/18 07:45 Dose: 40 mg Potassium Chloride (Klor-Con M10) 10 meq PO QAM [facility] Stop: 11/06/18 08:59 Last Admin: 10/08/18 07:45 Dose: 10 meq Rivaroxaban (Xarelto) 15 mg PO DAILY [facility] Stop: 11/06/18 08:59 Last Admin: 10/08/18 07:45 Dose: 15 mg Resident Activity Tracking Resident Involvement: Resident Care Provided Care Provided: [facility] _ (1) Cellulitis Laterality: right Site of cellulitis: extremity Site of cellulitis of extremity: toe Site of cellulitis of trunk: Qualified Code(s): L03.031 - Cellulitis of right toe
[2018-10-08] MEDS: INSULIN ASPART 100 UNITS/ML 3 ML PEN SC SCH ×4 (12:03→20:41)
[2018-10-08] MEDS: ACETAMINOPHEN 500 MG TAB PO PRN (12:45)
--- NOTE | 2018-10-08 13:42 | Infectious Disease Progress Nt ---
Date of Service October 08, 2018 Assessment & Plan (1) Cellulitis and abscess of toe: 73-year-old diabetic female with cellulitis involving the right foot and toes, with cultures positive for MRSA. Patient responding well to IV antibiotics, would continue on vancomycin for now, and discontinue Zosyn. Likely should be able to transition to oral antibiotics with Bactrim near future will follow. (2) Cellulitis of right foot without toes: Subjective Patient seen in follow-up for left foot infection. She states pain and swelling have improved significantly. No significant fever chills. Cultures have grown MRSA. Denies any other new complaints. Review of Systems All systems reviewed & are unremarkable except as noted in HPI & below Physical Exam 2 Vital Signs (Past 24 Hours): Last Vital Signs Temp 36.5 C 10/08/18 12:06 Pulse 74 10/08/18 12:06 Resp 20 10/08/18 12:06 BP 146/74 H 10/08/18 12:06 Pulse Ox 96 10/08/18 12:06 Constitutional: WD/WN, vitals as above + morbidly obese and comfortable; no acute distress Eyes: PERRL, conjunctivae normal, anicteric sclerae ENMT: external ear and nose normal, oropharynx normal Neck: trachea midline, no thyromegaly neck nontender Respiratory: normal respiratory effort, lungs clear to auscultation normal percussion; does not use accessory muscles Cardiovascular: Rate/Rhythm: regular rate and regular rhythm Heart Sounds: normal S1 and normal S2; no gallop, no murmur and no cardiac rub Vessels: normal peripheral pulses; no JVD Gastrointestinal (Abdomen): normal bowel sounds, soft, nontender, no hepatosplenomegaly Musculoskeletal: no cyanosis or clubbing, extremities motor strength 5/5 Spine: thoracic spine normal to inspection and lumbar spine normal to inspection ; no cervical spinal tenderness Skin: no rashes, warm and dry Improved left foot erythema and swelling Neurologic: patellar DTR's 2+ bilat, sensation intact no focal motor deficits Psychiatric: A+Ox3, euthymic affect Orientation: cooperative Lymphatic: no cervical or axillary lymphadenopathy no inguinal lymphadenopathy Results & Data Laboratory Results Short CBC 10/08/18 Range/Units 06:19 WBC 5.99 (4.8-10.8) K/uL Hgb 11.5 L (12.0-16.0) g/dL Hct 35.7 L (37-47) % Plt Count 159 (130-400) K/uL BMP 10/08/18 06:19 Creatinine 1.03 Diagnostic Findings Microbiology 10/06/18 21:39 Toe,Right Gram Stain - Final 10/06/18 21:39 Toe,Right Wound Culture - Final Staph aureus MRSA 10/06/18 21:37 Blood Blood Culture - Preliminary No growth to date. 10/06/18 21:25 Blood Blood Culture - Preliminary No growth to date.
[2018-10-08] MEDS ORDERED: NovoLIN-N (NPH) PER UNIT CHARGE SC ONE (16:30)
[2018-10-08] MEDS ORDERED: VANCOMYCIN TROUGH ONE (17:30)
[2018-10-08] MEDS: ATORVASTATIN 40 MG TAB PO SCH (20:47)
[2018-10-09] MEDS: ACETAMINOPHEN 500 MG TAB PO PRN ×2 (00:18→22:21)
[2018-10-09] MEDS: AZTREONAM 2,000 MG in DEXTROSE 5% 100 ML IV SCH ×3 (00:44→17:32)
[2018-10-09] MEDS: LEVOTHYROXINE SODIUM 50 MCG TABLET PO SCH (06:35)
[2018-10-09 07:16] LABS: Basophils # (auto) 0.05 K/uL (0-0.2); Basophils % (auto) 0.9 %; Eosinophils # (auto) 0.19 K/uL (0-0.5); Eosinophils % (auto) 3.3 %; Hematocrit (blood only) 38.4 % (37-47); Hemoglobin 12.9 g/dL (12.0-16.0); Immature Granulocytes # (auto) 0.02 K/uL (0.00-0.02); Immature Granulocytes % (auto) 0.4 %; Lymphocytes # (auto) 1.67 K/uL (1.2-3.4); Lymphocytes % (auto) 29.3 %; Mean Corpuscular Hgb Conc 33.6 g/dL (32-36); Mean Corpuscular Volume 90.1 fL (80-100); Mean Platelet Volume 9.3 fL (7.4-10.4); Monocytes % (auto) 8.8 %; Neutrophils # (auto) 3.27 K/uL (1.4-6.5); Neutrophils % (auto) 57.3 %; Platelet Count 177 K/uL (130-400); RDW Coefficient of Variation 15.6 % (11.5-14.5); RDW Standard Deviation 51.7 fL (36.4-46.3); Red Blood Count 4.26 M/uL (4.2-5.4)
[2018-10-09] MEDS ORDERED: INSULIN ASPART 100 UNITS/ML 3 ML PEN SC SCH ×2 (07:30→17:15)
[2018-10-09] MEDS: METOPROLOL SUCC 50MG EXT REL TAB PO SCH (07:44)
[2018-10-09] MEDS: FLUTICASONE HFA 110MCG INHALER INH SCH ×2 (07:44→21:31)
[2018-10-09] MEDS: POTASSIUM CHLORIDE 10 MEQ TABCR PO SCH (07:44)
[2018-10-09] MEDS: PANTOprazole 40 MG TAB PO SCH (07:44)
[2018-10-09] MEDS: RIVAROXABAN 15 MG TAB PO SCH (07:44)
[2018-10-09] MEDS: dilTIAZem HCL 240 MG CAPCR PO SCH (07:44)
[2018-10-09] MEDS: BUMETANIDE 1 MG TAB PO SCH ×2 (07:45→21:31)
[2018-10-09] MEDS: INSULIN ASPART 100 UNITS/ML 3 ML PEN SC SCH ×6 (07:45→21:31)
[2018-10-09 07:50] LABS: BUN Creatinine Ratio 19.7 (10-20); Calcium 8.6 mg/dl (8.5-10.1); Creatinine Clr Calc Pharmacy 56.9 ml/min; Est GFR (African American) 54.3; Est GFR (Non-African American) 46.8; Potassium 3.5 mmol/L (3.5-5.1)
[2018-10-09] MEDS ORDERED: INSULIN GLARGINE 100 UNIT/ML VIAL SC SCH (09:00)
--- NOTE | 2018-10-09 10:18 | Family Medicine Progress Note ---
Addendum entered and electronically signed by Raymond Bro MD 10/09/18 18:28: Addendum (Blank) Addendum October 09, 2018 18:24 Assessment and Plan Addendum: Chronic hypoxic respiratory failure - Baseline O2 requirement of 3L NC - [employer] O2 support, ventolin nebulizer tx, flovent Chronic kidney disease, stage 3 - GFR revealed range of 46.7-54.8 over the past 14 months. - BMP, Cr daily Chronic diastolic CHF - Hhx of CHF with most recent ECHO EF 55-60%. - Continue bumex, cardizem, metoprolol, and O2 as noted below Cellulitis in a patient with Type 2 DM - Pt with cellulitis R foot that started to develop after a podiatry appointment for toenail trimming. - Pt is also noted to have poor glycemic control with A1C >8% on admit - Treatment as noted in cellulitis section below Original Note: Date of Service October 09, 2018 Assessment & Plan (1) Cellulitis: Janelle Arellano is a 73-year-old female with a past medical history of congestive heart failure, A. fib anticoagulated with Xarelto, type 2 diabetes mellitus, COPD, hypothyroidism, and obesity who presented with right third toe pain after a toenail trim at podiatry and who was admitted for cellulitis. She received vancomycin, aztreonam, and ceftriaxone in the emergency department. She has been narrowed to aztreonam with a vancomycin consult. Cellulitis of right forefoot and third toe - Clinically improved today, but remains prominent - XR shows dorsal soft tissue swelling, no fxr or edema. - Doppler shows no leg DVT - s/p Vacn + Ceftri + aztreonam in ED - MRSA postive culture - Continuing vanc/aztreonam, will convert to TMP/SMX on d/c - Small third toe abscess with purulent drainage today. Openly draining, consult podiatry/I&D if not improving Type 2 diabetes mellitus - Held [employer] metformin - Her diabetic control appears is poor on 70/30 with an A1C of 8.5% She has also had multiple episodes of hypoglycemic symptoms overnight on 70/30 at home which improve with snacking. - [employer] Insulin NPH/Regular 70/30 82u qAM, 85u qPM - Glargine 90u qAM + Aspart 20 TID with meals. Pending discussion with pt will likely convert back to above tomorrow for insurance reasons as noted below. - Reports her diet at home is very similar to hospital diet, will not have parameters on aspart other than NPO as if she is going to run low would rather be able to see it here and adjust regimen accordingly - Novolog/Lantus coverage cost prohibitive. Will likely need to go back to 70/ 30 with an additional coverage dose of Humalog as this is a $0 cost for her insurance and lantus had a very high copay. Atrial fibrillation - Diltiazem 240mg PO qAM - Metoprolol 150mg qAM - Rivaroxaban 15mg PO daily Congestive heart failure - Last ECHO 11/13/2016: LVEF 55-60%, Moderate concentric LVH, normal LV side with grossly normal function, RV poorly visualized by function appeared reduced , RVSP mildly elevated. Limited study, no prior change from 11/17/2013. - Lungs clear without shortness of breath, dyspnea. Feels at her baseline fluid level, does not feel 'wet' - Continue bumetanide 2mg PO BID COPD - Albuterol Neb QID PRN, 2 puffs INH Q4H PRN - Arfomoterol 15mcg INH - Fluticasone HFA 1 puff INH Hypothyroidism - Synthroid 50mcg PO qAM Anxiety - Hydroxyzine 25mg QID PRN ERVIN versus prerenal azotemia (resolved) - Cr 1.1 (bl ~ 1.0) - BMP daily (2) Atrial fibrillation: (3) CHF (congestive heart failure): (4) COPD exacerbation: (5) Diabetes mellitus type 2, uncontrolled: (6) Hypothyroidism: Supervising Physician Co-Signing Physician Notes I personally examined the patient and verified all valladares points of history and exam, discussed case, and agree with decision making with Dr Bro. Foot draining some. Unfortunately basal bolus insulin is not affordable. Vitals noted, in general she is awake and alert pleasant no distress. Right foot has a small area of erythema on the dorsum stretching from the toe forward to about the midfoot. There is no crepitus it seems to be minimally tender. Foot infection-continue IV antibiotics, given the newly draining tissue as well as scabbing and ulceration, will ask podiatry to evaluate as it may need debrided. Uncontrolled type 2 diabetes on insulinunfortunately despite patient interested in switching to a basal bolus regimen the cost is unaffordable. We will work on trying to at least fine-tune her 7030 regimen to tighter control. Otherwise as above Subjective Mrs. Arellano feels similar today than yesterday. She notes her foot seems a little more swollen today than yesterday. Denies fevers, chills, sweats, chest pain, chest pressure, difficulty breathing, shortness of breath, rash, headache , abdominal pain, nausea, vomiting, diarrhea, constipation today. She would like to discuss basal-bolus insulin today with her present. She notes that she has had multiple episodes at [facility] on 70/30 insulin where she wakes up sweaty and lightheaded and needs to snack to feel better. Review of Systems See HPI Physical Exam 2 Vital Signs (Past 24 Hours): Last Vital Signs Temp 36.6 C 10/09/18 07:02 Pulse 76 10/09/18 07:02 Resp 20 10/09/18 07:02 BP 160/65 H 10/09/18 07:02 Pulse Ox 99 10/09/18 07:02 Physical Exam: General: A&Ox3. NAD. Cooperative. HEENT: Atraumatic, normocephalic. Pulm: Moderate air movement, CTAB A&P. -wheezes, -rales, -rhonchi. Symmetrical chest rise. No increase work of breathing. No respiratory distress. Cardiac: RRR, -mrg. Extremity: Chronic venous stasis changes present in lower legs bilaterally. R foot with increased swelling in 3rd toe. Distal tip of 3rd toe with a ~7mm-1cm shallow abscess draining purulent material. Swelling and mild warmth at the 3rd toe and forefoot. Mild pain on palpation of 3rd toe and forefoot. No pain on toe flexion/extension, dorsiflexion/plantarflexion fo the ankle against resistance. Results & Data Laboratory Results Abnormal lab results 10/08/18 10/08/18 10/08/18 Range/Units 10:54 16:04 20:26 RDW Std Deviation (36.4-46.3) fL RDW Coeff of Davina (11.5-14.5) % Sodium (136-145) mmol/L Chloride (98-107) mmol/L BUN (7-18) mg/dl Glucose (70-99) mg/dl POC Glucose 159 H 183 H 150 H (70-99) 10/09/18 10/09/18 10/09/18 Range/Units 06:55 06:55 07:16 RDW Std Deviation 51.7 H (36.4-46.3) fL RDW Coeff of Davina 15.6 H (11.5-14.5) % Sodium 133 L (136-145) mmol/L Chloride 97 L (98-107) mmol/L BUN 23 H (7-18) mg/dl Glucose 272 H (70-99) mg/dl POC Glucose 254 H (70-99) Medications Administered Current Inpatient Medications Acetaminophen (Tylenol) 500 mg PO Q4H PRN PRN Reason: Pain Stop: 11/06/18 04:24 Last Admin: 10/09/18 00:18 Dose: 500 mg Albuterol (Ventolin 0.083% 2.5mg/3ml) 2.5 mg INH QID PRN PRN Reason: Shortness Of Breath Or Wheezing Stop: 11/06/18 04:24 Albuterol (Ventolin Hfa) 2 puffs INH Q4H PRN PRN Reason: Shortness Of Breath Or Wheezing Stop: 11/06/18 04:24 Atorvastatin Calcium (Lipitor) 40 mg PO HS [facility] Stop: 11/06/18 20:59 Last Admin: 10/08/18 20:47 Dose: 40 mg Bumetanide (Bumex) 2 mg PO BID [facility] Stop: 11/06/18 08:59 Last Admin: 10/09/18 07:45 Dose: 2 mg Dextrose (Dextrose 50%) 25 - 50 ml IV UD PRN; Protocol PRN Reason: Hypoglycemia Protocol Stop: 11/06/18 04:24 Diltiazem HCl (Cardizem Cd) 240 mg PO QAM [facility] Stop: 11/06/18 08:59 Last Admin: 10/09/18 07:44 Dose: 240 mg Fluticasone Propionate (Flovent Hfa 110mch) 1 puffs INH BID [facility] Stop: 11/06/18 08:59 Last Admin: 10/09/18 07:44 Dose: 1 puffs Glucagon (Glucagen) 1 mg SQ UD PRN; Protocol PRN Reason: Hypoglycemia Protocol Stop: 11/06/18 04:24 Glucose (Glucose 40%) 15 - 30 gm PO UD PRN; Protocol PRN Reason: Hypoglycemia Protocol Stop: 11/06/18 04:24 Glucose (Dex4 Glucose) 4 - 8 tabs PO UD PRN; Protocol PRN Reason: Hypoglycemia Protocol Stop: 11/06/18 04:24 Heparin Sodium (Beef Lung) (Heparin Sod 10 Unit/Ml Flush) 5 ml FLUSH PRN PRN PRN Reason: PICC Line Last Admin: 10/09/18 08:51 Dose: 5 ml Aztreonam 2,000 mg/ Dextrose 110 mls @ 100 mls/hr IV Q8H [facility] Stop: 10/17/18 07:59 Last Infusion: 10/09/18 09:12 Dose: Infused Vancomycin HCl 1,750 mg/ (Sodium Chloride) 535 mls @ 200 mls/hr IV Q18H [facility]; Protocol Stop: 10/19/18 13:59 Insulin Aspart (Novolog Flexpen) 0 units SC ACHS [facility] Stop: 11/07/18 11:29 Last Admin: 10/09/18 07:45 Dose: 4 units Insulin Aspart (Novolog Flexpen) 30 units SC AC [facility] Stop: 11/07/18 16:29 Last Admin: 10/09/18 07:46 Dose: 30 units Insulin Glargine (Lantus) 90 units SC QAM [facility] Stop: 11/08/18 08:59 Last Admin: 10/09/18 07:46 Dose: 90 units Insulin Human NPH (Novolin N U-100 Nph Per Unit) 20 units SC QDD [facility] Stop: 10/09/18 16:31 Levothyroxine Sodium (Synthroid) 50 mcg PO DAILYBB [facility] Stop: 11/06/18 06:29 Last Admin: 10/09/18 06:35 Dose: 50 mcg Metoprolol Succinate (Toprol Xl) 150 mg PO QAM [facility] Stop: 11/06/18 08:59 Last Admin: 10/09/18 07:44 Dose: 150 mg Miscellaneous (Carbohydrates For Hypoglycemia) 15 - 30 gm PO UD PRN PRN Reason: Hypoglycemia Treatment Stop: 11/06/18 04:24 Miscellaneous Information (Consult) 1 ea N/A UD PRN PRN Reason: Consult Stop: 11/06/18 04:24 Pantoprazole Sodium (Protonix) 40 mg PO DAILY [facility] Stop: 11/06/18 08:59 Last Admin: 10/09/18 07:44 Dose: 40 mg Potassium Chloride (Klor-Con M10) 10 meq PO QAM [facility] Stop: 11/06/18 08:59 Last Admin: 10/09/18 07:44 Dose: 10 meq Rivaroxaban (Xarelto) 15 mg PO DAILY [facility] Stop: 11/06/18 08:59 Last Admin: 10/09/18 07:44 Dose: 15 mg Resident Activity Tracking Resident Involvement: Resident Care Provided Care Provided: [facility] _ (1) Cellulitis Laterality: right Site of cellulitis: extremity Site of cellulitis of extremity: toe Site of cellulitis of trunk: Qualified Code(s): L03.031 - Cellulitis of right toe
[2018-10-09] MEDS: VANCOMYCIN HCL 1,750 MG in SODIUM CHLORIDE 0.9% 500 ML IV SCH (13:58)
--- NOTE | 2018-10-09 15:10 | Pharmacy Report ---
Pharmacy Abx Dose Short Note - Date of Service October 09, 2018 - Assessment & Plan Assessment * 73 year old F receiving IV vancomycin for treatment of SSTI * Day #3 of antimicrobial therapy. * A trough level was drawn last evening prior to the 3rd maintenance dose (not yet steady-state), which was supratherapeutic (24.7 mcg/mL) * Expect that this will continue to increase, as vanc will accumulate in obese patient (BMI 54.4 kg/m2). Plan Vancomycin * Trough level of 24.7 mcg/mL is supratherapeutic * Dose decreased last evening to Vancomycin 1750mg IV q18h. * Goal trough level for SSTI and vanc EUGENIA 2: 18 to 20 mcg/mL * Trough level ordered for: 10/11 Pharmacy will continue to follow and will adjust dose/frequency as necessary. Thank you.
[2018-10-09] MEDS ORDERED: NovoLIN-N (NPH) PER UNIT CHARGE SC ONE (16:30)
[2018-10-09] MEDS: ATORVASTATIN 40 MG TAB PO SCH (21:31)
[2018-10-10] MEDS: AZTREONAM 2,000 MG in DEXTROSE 5% 100 ML IV SCH ×2 (00:58→08:25)
[2018-10-10 05:52] LABS: Creatinine Clr Calc Pharmacy 65.4 ml/min; Est GFR (African American) 64.3; Est GFR (Non-African American) 55.5
[2018-10-10] MEDS: LEVOTHYROXINE SODIUM 50 MCG TABLET PO SCH (06:27)
[2018-10-10] MEDS: INSULIN ASPART 100 UNITS/ML 3 ML PEN SC SCH ×5 (06:51→21:08)
[2018-10-10 07:38] LABS: Basophils # (auto) 0.04 K/uL (0-0.2); Basophils % (auto) 0.7 %; Eosinophils # (auto) 0.17 K/uL (0-0.5); Eosinophils % (auto) 3.2 %; Hematocrit (blood only) 35.9 % (37-47); Hemoglobin 11.8 g/dL (12.0-16.0); Immature Granulocytes # (auto) 0.03 K/uL (0.00-0.02); Immature Granulocytes % (auto) 0.6 %; Lymphocytes # (auto) 1.51 K/uL (1.2-3.4); Lymphocytes % (auto) 28.1 %; Mean Corpuscular Hgb Conc 32.9 g/dL (32-36); Mean Corpuscular Volume 89.1 fL (80-100); Mean Platelet Volume 9.8 fL (7.4-10.4); Monocytes # (auto) 0.53 K/uL (0.11-0.59); Monocytes % (auto) 9.9 %; Neutrophils # (auto) 3.09 K/uL (1.4-6.5); Neutrophils % (auto) 57.5 %; Platelet Count 192 K/uL (130-400); RDW Coefficient of Variation 15.5 % (11.5-14.5); RDW Standard Deviation 50.8 fL (36.4-46.3); Red Blood Count 4.03 M/uL (4.2-5.4); White Blood Count 5.37 K/uL (4.8-10.8)
[2018-10-10 07:45] LABS: BUN Creatinine Ratio 20.7 (10-20); Calcium 8.3 mg/dl (8.5-10.1); Creatinine Clr Calc Pharmacy 60.1 ml/min; Est GFR (African American) 57.9; Potassium 3.2 mmol/L (3.5-5.1)
[2018-10-10] MEDS: INSULIN HUMAN 70% NPH/30% REGULAR SC SCH (08:24)
[2018-10-10] MEDS: VANCOMYCIN HCL 1,750 MG in SODIUM CHLORIDE 0.9% 500 ML IV SCH (08:25)
[2018-10-10] MEDS: BUMETANIDE 1 MG TAB PO SCH ×2 (08:25→21:06)
[2018-10-10] MEDS: METOPROLOL SUCC 50MG EXT REL TAB PO SCH (08:26)
[2018-10-10] MEDS: dilTIAZem HCL 240 MG CAPCR PO SCH (08:27)
[2018-10-10] MEDS: FLUTICASONE HFA 110MCG INHALER INH SCH ×2 (08:27→21:06)
[2018-10-10] MEDS: PANTOprazole 40 MG TAB PO SCH (08:27)
[2018-10-10] MEDS: RIVAROXABAN 15 MG TAB PO SCH (08:27)
[2018-10-10] MEDS: POTASSIUM CHLORIDE 10 MEQ TABCR PO SCH (08:28)
--- NOTE | 2018-10-10 11:00 | Family Medicine Progress Note ---
Date of Service October 10, 2018 Assessment & Plan (1) Cellulitis: Janelle Arelalno is a 73-year-old female with a past medical history of congestive heart failure, A. fib anticoagulated with Xarelto, type 2 diabetes mellitus, COPD, hypothyroidism, and obesity who presented with right third toe pain after a toenail trim at podiatry and who was admitted for cellulitis. She received vancomycin, aztreonam, and ceftriaxone in the emergency department. She has been narrowed to aztreonam with a vancomycin consult. Diabetes Mellitus with skin complication of cellulitis - Pt with cellulitis R foot that started to develop after a podiatry appointment for toenail trimming. - Greatly clinically improved today. Reduced swelling and erythema, no warmth today. - XR showed dorsal soft tissue swelling, no fxr or edema. - Doppler shows no leg DVT - s/p Vacn + Ceftri + aztreonam in ED - MRSA postive culture - Continuing vanc will convert to TMP/SMX on d/c - Third toe abscess improved toe, small amounts of pus. Wound care consulted. - T2DM management as below Type 2 diabetes mellitus - Held [employer] metformin - Her diabetic control appears is poor on with an A1C of 8.5% on admit. She has also had multiple episodes of hypoglycemic symptoms overnight on at home which improve with snacking. - Resumed Insulin NPH/Regular 82u qAM, 85u qPM +SSI - Ideally would prefer Glargine 90u qAM + Aspart 20 TID with meals, cost prohibitive. Would continue to reassess as outpatient. Chronic Venous Statis - Lungs clear. No additional bumetanide indicated. - Recommend ambulation, PT/OT, compression stockings vs saad wrap Atrial fibrillation - Diltiazem 240mg PO qAM - Metoprolol 150mg qAM - Rivaroxaban 15mg PO daily Chronic diastolic CHF - Last ECHO 11/13/2016: LVEF 55-60%, Moderate concentric LVH, normal LV side with grossly normal function, RV poorly visualized by function appeared reduced , RVSP mildly elevated. Limited study, no prior change from 11/17/2013. - Continue bumex 2mg BID, cardizem 240mg qAM, metoprolol 150mg qAM, and O2 - Lungs clear without shortness of breath, dyspnea. Feels increased fluid in her legs, lungs clear without increased shortness of breath. COPD - Albuterol Neb QID PRN, 2 puffs INH Q4H PRN - Arfomoterol 15mcg INH - Fluticasone HFA 1 puff INH Chronic hypoxic respiratory failure - Baseline O2 requirement of 3L NC - [employer] O2 support, ventolin nebulizer tx, flovent as above Hypothyroidism - Synthroid 50mcg PO qAM Anxiety - Hydroxyzine 25mg QID PRN Chronic kidney disease, stage 3 - GFR revealed range of 46.7-54.8 over the past 14 months. - BMP, Cr daily ERVIN versus prerenal azotemia (resolved) - Cr 1.0 (bl ~ 1.0) - BMP daily DVT Prophylaxsis: Rivaroxaban (2) Atrial fibrillation: (3) CHF (congestive heart failure): (4) COPD exacerbation: (5) Diabetes mellitus type 2, uncontrolled: (6) Hypothyroidism: Supervising Physician Co-Signing Physician Notes I personally examined the patient and verified all valladares points of history and exam, discussed case, and agree with decision making with Dr Bro. Her foot is feeling better. She is very appreciative of the care here. Vitals noted, in general she is awake and alert pleasant no distress. Right foot erythema improving, the toe was dressed. Nothing is tender. Foot infection-anticipate home on Bactrim tomorrow as long as there is stability or ongoing improvement. Then close outpatient follow-up. Uncontrolled type 2 diabetes on insulinunfortunately despite patient interested in switching to a basal bolus regimen the cost is unaffordable. Continue to fine-tune her 70/30 regimen to tighter control, and she will continue to work towards trying to get coverage for a basal bolus regimen in the outpatient setting. Otherwise as above Subjective Janelle is frustrated that she cannot get basal/bolus approved, but is amenable to adding mealtime insulin at lunch. She declined physical therapy, feels she doesn't need rehab. rehab discussed extensively. Endorses increased swelling in her legs bilaterally. Denies pain in her feet today. no fevers, chills, sweats, headache, lightheadedness, nausea, vomiting, diarrhea , constipation no shortness of breath, difficulty breathing, chest pain, chest pressure, palpitations No numbness/tingling today Review of Systems See HPI Physical Exam 2 Vital Signs (Past 24 Hours): Last Vital Signs Temp 36.7 C 10/10/18 07:16 Pulse 74 10/10/18 07:34 Resp 18 10/10/18 07:16 BP 166/76 H 10/10/18 07:16 Pulse Ox 100 10/10/18 07:16 Physical Exam: General: A&Ox3. NAD. Cooperative. HEENT: Atraumatic, normocephalic. Pulm: Moderate air movement, CTAB A&P. -wheezes, -rales, -rhonchi. Symmetrical chest rise. No increase work of breathing. No respiratory distress. Cardiac: RRR, -mrg. Extremity: Chronic venous stasis changes present in lower legs bilaterally. increased swelling bilaterally. R foot with swelling in 3rd toe, improved from yesterday. Distal tip of 3rd toe with a some purulent material and crusting, improved from yesterday. Forefoot swelling present, but improved. No warmth. No pain on toe flexion/extension, dorsiflexion/plantarflexion fo the ankle against resistance. Results & Data Laboratory Results Abnormal lab results 10/09/18 10/09/18 10/09/18 Range/Units 11:16 15:39 20:07 RBC (4.2-5.4) M/uL Hgb (12.0-16.0) g/dL Hct (37-47) % RDW Std Deviation (36.4-46.3) fL RDW Coeff of Davina (11.5-14.5) % Immature Gran # (Auto) (0.00-0.02) K/uL Sodium (136-145) mmol/L Potassium (3.5-5.1) mmol/L BUN (7-18) mg/dl BUN/Creatinine Ratio (10-20) Glucose (70-99) mg/dl POC Glucose 187 H 68 L* 144 H (70-99) Calcium (8.5-10.1) mg/dl 10/10/18 10/10/18 10/10/18 Range/Units 05:11 05:11 07:22 RBC 4.03 L (4.2-5.4) M/uL Hgb 11.8 L (12.0-16.0) g/dL Hct 35.9 L (37-47) % RDW Std Deviation 50.8 H (36.4-46.3) fL RDW Coeff of Davina 15.5 H (11.5-14.5) % Immature Gran # (Auto) 0.03 H (0.00-0.02) K/uL Sodium 134 L (136-145) mmol/L Potassium 3.2 L (3.5-5.1) mmol/L BUN 23 H (7-18) mg/dl BUN/Creatinine Ratio 20.7 H (10-20) Glucose 201 H (70-99) mg/dl POC Glucose 199 H (70-99) Calcium 8.3 L (8.5-10.1) mg/dl 10/10/18 Range/Units 11:06 RBC (4.2-5.4) M/uL Hgb (12.0-16.0) g/dL Hct (37-47) % RDW Std Deviation (36.4-46.3) fL RDW Coeff of Davina (11.5-14.5) % Immature Gran # (Auto) (0.00-0.02) K/uL Sodium (136-145) mmol/L Potassium (3.5-5.1) mmol/L BUN (7-18) mg/dl BUN/Creatinine Ratio (10-20) Glucose (70-99) mg/dl POC Glucose 215 H (70-99) Calcium (8.5-10.1) mg/dl Medications Administered Current Inpatient Medications Acetaminophen (Tylenol) 500 mg PO Q4H PRN PRN Reason: Pain Stop: 11/06/18 04:24 Last Admin: 10/09/18 22:21 Dose: 500 mg Albuterol (Ventolin 0.083% 2.5mg/3ml) 2.5 mg INH QID PRN PRN Reason: Shortness Of Breath Or Wheezing Stop: 11/06/18 04:24 Albuterol (Ventolin Hfa) 2 puffs INH Q4H PRN PRN Reason: Shortness Of Breath Or Wheezing Stop: 11/06/18 04:24 Atorvastatin Calcium (Lipitor) 40 mg PO HS [facility]YLAN Stop: 11/06/18 20:59 Last Admin: 10/09/18 21:31 Dose: 40 mg Bumetanide (Bumex) 2 mg PO BID [facility]YLAN Stop: 11/06/18 08:59 Last Admin: 10/10/18 08:25 Dose: 2 mg Dextrose (Dextrose 50%) 25 - 50 ml IV UD PRN; Protocol PRN Reason: Hypoglycemia Protocol Stop: 11/06/18 04:24 Diltiazem HCl (Cardizem Cd) 240 mg PO QAM [facility] Stop: 11/06/18 08:59 Last Admin: 10/10/18 08:27 Dose: 240 mg Fluticasone Propionate (Flovent Hfa 110mch) 1 puffs INH BID [facility] Stop: 11/06/18 08:59 Last Admin: 10/10/18 08:27 Dose: 1 puffs Glucagon (Glucagen) 1 mg SQ UD PRN; Protocol PRN Reason: Hypoglycemia Protocol Stop: 11/06/18 04:24 Glucose (Glucose 40%) 15 - 30 gm PO UD PRN; Protocol PRN Reason: Hypoglycemia Protocol Stop: 11/06/18 04:24 Glucose (Dex4 Glucose) 4 - 8 tabs PO UD PRN; Protocol PRN Reason: Hypoglycemia Protocol Stop: 11/06/18 04:24 Heparin Sodium (Beef Lung) (Heparin Sod 10 Unit/Ml Flush) 5 ml FLUSH PRN PRN PRN Reason: PICC Line Last Admin: 10/09/18 19:16 Dose: 5 ml Vancomycin HCl 1,750 mg/ (Sodium Chloride) 535 mls @ 200 mls/hr IV Q18H [facility]; Protocol Stop: 10/19/18 13:59 Last Infusion: 10/10/18 11:13 Dose: Infused Insulin Aspart (Novolog Flexpen) 0 units SC ACHS [facility] Stop: 11/07/18 11:29 Last Admin: 10/10/18 08:22 Dose: 2 units Insulin Human Isoph/Insulin Regular (Novolin 70/30 Regular) 82 units SC QDB [facility] Stop: 11/09/18 07:29 Last Admin: 10/10/18 08:24 Dose: 82 units Insulin Human Isoph/Insulin Regular (Novolin 70/30 Regular) 85 units SC QDD [facility] Stop: 11/09/18 16:29 Levothyroxine Sodium (Synthroid) 50 mcg PO DAILYBB [facility] Stop: 11/06/18 06:29 Last Admin: 10/10/18 06:27 Dose: 50 mcg Metoprolol Succinate (Toprol Xl) 150 mg PO QAM [facility] Stop: 11/06/18 08:59 Last Admin: 10/10/18 08:26 Dose: 150 mg Miscellaneous (Carbohydrates For Hypoglycemia) 15 - 30 gm PO UD PRN PRN Reason: Hypoglycemia Treatment Stop: 11/06/18 04:24 Last Admin: 10/09/18 15:42 Dose: 15 gm Miscellaneous Information (Consult) 1 ea N/A UD PRN PRN Reason: Consult Stop: 11/06/18 04:24 Pantoprazole Sodium (Protonix) 40 mg PO DAILY [facility] Stop: 11/06/18 08:59 Last Admin: 10/10/18 08:27 Dose: 40 mg Potassium Chloride (Klor-Con M10) 40 meq PO QAM [facility] Stop: 11/09/18 08:59 Last Admin: 10/10/18 08:28 Dose: 40 meq Rivaroxaban (Xarelto) 15 mg PO DAILY [facility] Stop: 11/06/18 08:59 Last Admin: 10/10/18 08:27 Dose: 15 mg Resident Activity Tracking Resident Involvement: Resident Care Provided Care Provided: Adult [facility] Medicine _ (1) Cellulitis Laterality: right Site of cellulitis: extremity Site of cellulitis of extremity: toe Site of cellulitis of trunk: Qualified Code(s): L03.031 - Cellulitis of right toe
[2018-10-10] MEDS ORDERED: BUMETANIDE 1 MG TAB PO ONE (12:00)
--- NOTE | 2018-10-10 15:02 | Infectious Disease Progress Nt ---
Date of Service October 10, 2018 Assessment & Plan (1) Cellulitis and abscess of toe: 73-year-old diabetic female with cellulitis involving the right foot and toes, with cultures positive for MRSA. Patient responding well to IV antibiotics, would continue on vancomycin for now. Likely should be able to transition to oral antibiotics with Bactrim near future will follow. (2) Cellulitis of right foot without toes: Subjective Patient seen in follow-up for left foot infection. She states pain and swelling have improved significantly. No significant fever chills. Cultures have grown MRSA. Denies any other new complaints. Review of Systems All systems reviewed & are unremarkable except as noted in HPI & below Physical Exam 2 Vital Signs (Past 24 Hours): Last Vital Signs Temp 36.6 C 10/10/18 11:23 Pulse 75 10/10/18 11:23 Resp 18 10/10/18 11:23 BP 167/72 H 10/10/18 11:23 Pulse Ox 96 10/10/18 11:23 Constitutional: WD/WN, vitals as above + morbidly obese and comfortable; no acute distress Eyes: PERRL, conjunctivae normal, anicteric sclerae ENMT: external ear and nose normal, oropharynx normal Neck: trachea midline, no thyromegaly neck nontender Respiratory: normal respiratory effort, lungs clear to auscultation normal percussion; does not use accessory muscles Cardiovascular: Rate/Rhythm: regular rate and regular rhythm Heart Sounds: normal S1 and normal S2; no gallop, no murmur and no cardiac rub Vessels: normal peripheral pulses; no JVD Gastrointestinal (Abdomen): normal bowel sounds, soft, nontender, no hepatosplenomegaly Musculoskeletal: no cyanosis or clubbing, extremities motor strength 5/5 Spine: thoracic spine normal to inspection and lumbar spine normal to inspection ; no cervical spinal tenderness Skin: no rashes, warm and dry Improved lower extremity erythema Neurologic: patellar DTR's 2+ bilat, sensation intact no focal motor deficits Psychiatric: A+Ox3, euthymic affect Orientation: cooperative Lymphatic: no cervical or axillary lymphadenopathy no inguinal lymphadenopathy Results & Data Laboratory Results Short CBC 10/10/18 Range/Units 05:11 WBC 5.37 (4.8-10.8) K/uL Hgb 11.8 L (12.0-16.0) g/dL Hct 35.9 L (37-47) % Plt Count 192 (130-400) K/uL BMP 10/10/18 10/10/18 05:11 05:12 Sodium 134 L Potassium 3.2 L Chloride 98 Carbon Dioxide 31 BUN 23 H Creatinine 1.09 1.00 Glucose 201 H Calcium 8.3 L Diagnostic Findings Microbiology 10/06/18 21:39 Toe,Right Gram Stain - Final 10/06/18 21:39 Toe,Right Wound Culture - Final Staph aureus MRSA 10/06/18 21:37 Blood Blood Culture - Preliminary No growth to date. 10/06/18 21:25 Blood Blood Culture - Preliminary No growth to date.
[2018-10-10] MEDS ORDERED: INSULIN HUMAN 70% NPH/30% REGULAR SC SCH (16:30)
[2018-10-10] MEDS: ATORVASTATIN 40 MG TAB PO SCH (21:05)
[2018-10-10] MEDS ORDERED: POTASSIUM CHLORIDE 20 MEQ TABCR PO STA (21:35)
[2018-10-11] MEDS: ACETAMINOPHEN 500 MG TAB PO PRN (00:01)
[2018-10-11] MEDS ORDERED: VANCOMYCIN TROUGH ONE (01:30)
[2018-10-11 02:06] LABS: Hematocrit (blood only) 36.9 % (37-47); Hemoglobin 12.2 g/dL (12.0-16.0); Mean Corpuscular Hgb Conc 33.1 g/dL (32-36); Mean Corpuscular Volume 89.8 fL (80-100); Mean Platelet Volume 9.4 fL (7.4-10.4); Platelet Count 199 K/uL (130-400); RDW Coefficient of Variation 15.3 % (11.5-14.5); RDW Standard Deviation 50.2 fL (36.4-46.3); Red Blood Count 4.11 M/uL (4.2-5.4); White Blood Count 6.32 K/uL (4.8-10.8)
[2018-10-11 02:29] LABS: BUN Creatinine Ratio 23.8 (10-20); Calcium 8.4 mg/dl (8.5-10.1); Creatinine Clr Calc Pharmacy 64.9 ml/min; Est GFR (African American) 63.5; Est GFR (Non-African American) 54.8; Potassium 3.5 mmol/L (3.5-5.1)
[2018-10-11] MEDS: VANCOMYCIN HCL 1,750 MG in SODIUM CHLORIDE 0.9% 500 ML IV SCH (03:35)
[2018-10-11] MEDS: LEVOTHYROXINE SODIUM 50 MCG TABLET PO SCH (05:40)
[2018-10-11] MEDS: INSULIN ASPART 100 UNITS/ML 3 ML PEN SC SCH ×2 (07:50→12:10)
[2018-10-11] MEDS: INSULIN HUMAN 70% NPH/30% REGULAR SC SCH (07:50)
[2018-10-11] MEDS: BUMETANIDE 1 MG TAB PO SCH (07:51)
[2018-10-11] MEDS: PANTOprazole 40 MG TAB PO SCH (07:51)
[2018-10-11] MEDS: METOPROLOL SUCC 50MG EXT REL TAB PO SCH (07:51)
[2018-10-11] MEDS: FLUTICASONE HFA 110MCG INHALER INH SCH (07:51)
[2018-10-11] MEDS: RIVAROXABAN 15 MG TAB PO SCH (07:52)
[2018-10-11] MEDS: POTASSIUM CHLORIDE 10 MEQ TABCR PO SCH (07:52)
[2018-10-11] MEDS: dilTIAZem HCL 240 MG CAPCR PO SCH (07:53)
[2018-10-11] MEDS ORDERED: SULFAMETHOXAZOLE/TRIMETHOPRIM DS 800/160MG TAB PO SCH (09:00)
--- NOTE | 2018-10-11 19:37 | Discharge Summary ---
Date of Service October 11, 2018 Admission HPI Per Admitting Provider Janelle Stevenson is a 73 y.o female with medical history significant for Heart Failure, HTN, A-fib, Diabetes Mellitus, and Morbid obesity who presents to the ED with complaint of pain in right third toe that has been present x 1 week occuring after visit with machine adjuster where her toenails were clipped and a portion of skin was cut during the process. She returned to the machine adjuster who bandaged the toe and applied a "cream" but has not seen improvement in pain. On 10/07 pain worsened and made it difficult for her to walk. Normally she uses a walker and cane but has been unable to do so on 10/07. EMS was called and the patient came to the ED Reports prior history of callous to second right toe requiring removal and resulting in infection. Her right foot is painful and has erythema of right lower leg which the patient states is normal for her. States that her diabetes is pretty well controlled and takes insulin and metformin daily. Denies headache, fever, vomiting, or diarrhea. Endorses nausea on 10/07. She has been tolerating PO well. PMHx: 1. Heart Failure 2. A-fib 3. COPD 4. DM2 Surgical History: Hysterectomy and oophorectomy Social: Lives with in [facility]. Denies history of tobacco use/ alcohol/drug use. Principal Diagnosis Uncontrolled T2DM with skin complication of cellulitis Discharge Exam General: A&Ox3. NAD. Cooperative. HEENT: Atraumatic, normocephalic. Pulm: Moderate-good air movement, CTAB A&P. -wheezes, -rales, -rhonchi. Symmetrical chest rise. No increased work of breathing. No respiratory distress. Cardiac: RRR, -mrg. Extremity: Chronic venous stasis changes present in lower legs bilaterally. R foot with minimal swelling in 3rd toe. Distal tip of 3rd toe crusting, no pus or discharge today. Mild forefood swelling, no erythema. No warmth. No pain on toe flexion/extension, dorsiflexion/plantarflexion fo the ankle against resistance. Discharge Data Allergies Allergy/AdvReac Type Severity Reaction Status Date / Time Penicillins Allergy Intermediate HIVES Verified 10/06/18 22:29 metronidazole AdvReac Unknown NAUSEA Verified 10/06/18 22:29 Consultations 10/06/18 23:27 ED Decision to Admit Stat 10/07/18 04:25 Consult Infectious Diseases Routine 10/09/18 18:39 Consult Podiatry Routine Ordered Studies 10/06/18 21:08 US venous doppler LE RT Urgent Hospital Course (1) Diabetes with skin complication: Janelle Stevenson is a 73-year-old female with a past medical history of congestive heart failure, A. fib anticoagulated with Xarelto, type 2 diabetes mellitus, COPD, hypothyroidism, and obesity who presented with right third toe pain after a toenail trim at podiatry and who was admitted for cellulitis. Diabetes Mellitus with skin complication of cellulitis She presented with cellulitis of the R foot that started to develop after a podiatry appointment for toenail trimming. She was placed on vanc, ceftriaxone, and aztreonam in the emergency department. XR showed no evidence of abscess or osteomyelitis. Wound cultures were positive for MRSA. She was narrowed to vancomycin and clinically improved. She developed a small shallow abscess with pus which was treated by wound care and which improved the next day. No concern for continued abscess or osteo at time of discharge. She was converted to TMP/ SMX DS twice daily for 5 more days on discharge. An appointment for scheduling with Wound Care for followup was pending at time of discharge. (2) Diabetes mellitus type 2, uncontrolled: Janelle stevenson was admitted with an A1C of 8.5% on admit. She also reported episodes of hypoglycemia overnight. She was on 70/30 NPH/Regular 82u AM and 85u PM at home. Given her comorbidities and poor HgA1C she was converted to lantus 90u daily + aspart 30U with meals during admission for better control. This regimen was unable to be covered by her insurance carrier on discharge. Recommended adding Humalog to lunch to help cover highs and decreasing the evening 70/30 dose on returning home based on her report of lows. Will likely benefit from having lunchtime Humalog increased and tighter glycemic control overall in the future. She would be a good candidate for basal /bolus in the future if it were covered by insurance. (3) Atrial fibrillation: She was maintained on S[employer] RES[employer] REPRESENTATIVE diltiazem 240mg qAM and metoprolol 150mg qAm doses. She was anticoagulated with rivaroxaban. She was with regular rate and rhythm and was not suspected to be in Afib during admission. (4) Hypothyroidism: S[employer] REPRESENTATIVE Synthroid 50mcg PO qAM was continued. (5) Chronic venous stasis: Her lungs remained clear through admission, suspect more chronic venous stasis than AoC CHF. She was instructed to keep her legs elevated when sitting and was encouraged to ambulate during admission. Was discharged to continue home compression stockings and encouraged to continue ambulating. (6) Chronic diastolic (congestive) heart failure: Her last echo in 11/13/2016 showed preserved EF. Her lungs remained clear through admit. No additional bumetanide was needed, she was maintained on SEN[employer] REPRESENTATIVE doses of bumex 2mg BID, Cardizem 240mg qAM, metoprolol 150mg qAm, and oxygen.Her last echo in 11/13/2016 showed preserved EF. Her lungs remained clear through admit. No additional bumetanide was needed, she was maintained on S[employer] REPRESENTATIVE doses of bumex 2mg BID, Cardizem 240mg qAM, metoprolol 150mg qAm, and oxygen. (7) COPD (chronic obstructive pulmonary disease): She did note experience a COPD exacerbation during admission. She was maintained on Albuterol Neb QID PRN, 2 puffs INH Q4H PRN, arfomoterol 15mcg INH , and fluticasone HFA 1 puff INH. (8) Chronic respiratory failure with hypoxia: She has a baseline O2 requirement of 3L NC. She was continued on home oxygen with COPD support as above and did not experience an acute exacerbation of respiratory failure. (9) Anxiety: Hydroxyzine 25mg QID PRN was maintained during admission, she did not require any doses. (10) CKD (chronic kidney disease) stage 3, GFR 30-59 ml/min: GFR revealed range of 46.7-54.8 over the past 14 months. She had an increased Cr from bl of 1.16 to 1.56 on admission which normalized to 1.01 with hydration and treatment as above. (11) DVT prophylaxis: Rivaroxaban as above Total Time Total Time Spent Total Time Spent (In Minutes): 30 Discharge Plan Discharge Items Patient Disposition: Home - Self-Care Reason For Visit: CELLULITIS Discharge Diagnosis: Type 2 Diabetes Mellitus with complication of cellulitis with HgA1C >8% Discharge Goals: Improve disease control and Therapeutic intervention Activity: Resume your previous activity Non-emergency contact: Primary Care Provider Call non-emergency contact if: you have any medication questions, your symptoms worsen, your pain is concerning for you, you have a fever, your temperature is above 100.5, your wound has increased redness, your wound has increased drainage and your wound pain has increased Follow-up/Referrals: Maxine Roberts MD [Primary Care Provider] - 10/14/18 10:00 am (Please, follow up at [facility] with Dr. Roberts on SaturdayOctober 14 at 10:00 am. *If you need to change this appointment, call the office at [phone].) Diet: Carb Consistent or DM2 Addtl Provider Instructions: You were seen in the hospital for a diabetic foot infection. You were treated with antibiotics during your admission. You have been put on a new antibiotic. Your HgA1C was noted to be elevated during admission, you have had changes to your insulin regimen as noted below. You have been started on a new antibiotic, Bacrim DS (TMP/SMX). Please take Bactrim DS by mouth twice daily for 5 days after returning home. If you develop any fevers, chills, shortness of breath, difficulty breathing, worsening pain in your leg or toe, or you are concerned please call Dr. Roberts at [phone]. You have had changes made to your insulin regimen. When you return home please take Humalin 70/30 insulin 82 units in the morning and 82 units in the evening. This was the insulin you were on prior to admission. You have also had a new short acting insulin prescribed for lunchtime, see below. You have been prescribed a new insulin, Humalog. This is a short acting insulin to be taken with your lunch. Please take Humalog 3 units at lunchtime. Please check your blood sugar 1-2 hours after meals, incluidng lunch. If you do not eat lunch, you do not need to take Humalog. If you feel lightheaded, dizzy, sweaty, or like your blood sugar might be low please drink a small cup of juice and call Dr. Chu's office at the number below to see if an adjustment to your insulin should be made. Please check your blood sugar 2 hours after each meal and keep a log book of your blood sugars. This will help Dr. Roberts adjust your insulin regimen in the future. You have had a followup appointment scheduled with Dr. Roberts for 10/14/18 at 10:00am. If you need to cancel/change your appointment please call her office at [phone]. You are having an appointment scheduled with the wound clinic for followup of your toe. You should hear from them to confirm an appointment. If you do not hear from them within 48 hours, or you need to cancel/change your appointment, please call their office at [phone]. Prescriptions: New insulin lispro [Humalog KwikPen Insulin] 100 unit/mL insulin pen 3 units SQ DAILY Qty: 15 RF: 1 sulfamethoxazole-trimethoprim 800-160 mg Tablet 1 tab PO Q12 5 Days Qty: 10 RF: 0 Continue diltiazem HCl 240 mg capsule,extended release 24hr 240 mg PO QAM RF: 0 benzonatate 100 mg Capsule 100 mg PO TID PRN (Reason: Cough) RF: 0 atorvastatin 40 mg tablet 40 mg PO HS RF: 0 metformin 500 mg tablet 1,000 mg PO QAM RF: 0 metformin 500 mg tablet 500 mg PO QPM RF: 0 potassium chloride 10 mEq capsule, extended release 10 meq PO QAM RF: 0 bumetanide 2 mg tablet 2 mg PO BID RF: 0 albuterol sulfate 2.5 mg /3 mL (0.083 %) Solution For Nebulization 2.5 mg INHALATION QID PRN (Reason: Shortness Of Breath Or Wheezing) RF: 0 metoprolol succinate 100 mg tablet extended release 24 hr 150 mg PO QAM RF: 0 miconazole nitrate [Desenex] 2 % Powder 1 applic TOPICAL BID PRN (Reason: skin infection) RF: 0 allopurinol 100 mg tablet 100 mg PO DAILY RF: 0 acetaminophen [Tylenol Extra Strength] 500 mg Tablet 500 mg PO Q4H PRN (Reason: Pain) RF: 0 alprazolam 0.5 mg tablet 0.5 mg PO HS PRN (Reason: Anxiety) RF: 0 hydrocortisone 1 % Cream 1 applic TOPICAL BID PRN (Reason: skin condition) RF: 0 levothyroxine 50 mcg tablet 50 mcg PO QAM RF: 0 hydroxyzine HCl 25 mg Tablet 25 mg PO QID PRN (Reason: Itching) RF: 0 albuterol sulfate 90 mcg/actuation HFA aerosol inhaler 2 puff Inhalation Q4H PRN (Reason: Shortness Of Breath Or Wheezing) RF: 0 fluticasone [Flovent HFA] 110 mcg/actuation Hfa Aerosol Inhaler 1 puff INHALATION BID RF: 0 insulin NPH and regular human 100 unit/mL (70-30) insulin pen 82 units subcut QAM RF: 0 arformoterol [Brovana] 15 mcg/2 mL Solution For Nebulization 15 mcg INHALATION BID RF: 0 cholecalciferol (vitamin D3) [Vitamin D3] 2,000 unit Tablet 2,000 units PO QAM RF: 0 rivaroxaban [Xarelto] 15 mg Tablet 15 mg PO DAILY RF: 0 magnesium oxide 400 mg magnesium Tablet 400 mg PO DAILY@1200 RF: 0 Changed insulin NPH and regular human 100 unit/mL (70-30) insulin pen 82 units subcut QPM Qty: 0 RF: 0 Stand-Alone Forms: [facility] Discharge Orders: Discharge Order (Routine); Ordered 10/11/18 Ordered By: Raymond Bro Admission Data Admit Date/Time: 10/07/18 03:29 Attending Provider: Asmita Servin Admit Provider: Salma Humphrey Primary Care Provider: Maxine Roberts Other Providers: Deevn Mak ; Pablo Meadows ; Rm Gandhi ; Emerson Wylie Service: Telemetry Medical Other Interventions: Discharge Summary Assessment (RN) Last Done: 10/11/18 14:16 DC Date/Time DO NOT enter until pt leaves facility: 10/11/18 15:10 Supervising Physician Co-Signing Physician Notes Resident Physician Supervision Note: I independently interviewed and examined the patient and verified the valladares history and physical, reviewed labs and image studies, discussed the case with the resident Dr. Bro and agree with the findings and care plan. Time spent in discharge 35 min Resident Activity Tracking Resident Involvement: Resident Care Provided Care Provided: Adult Hospital Medicine
== END 2018-10-11 15:10 | disposition home or self-care (01) | DRG 638 ==
LOC: ED 20:38 → 2W 10-07 03:29 → SUATTDRO 10-07 03:29 → 2W 10-07 03:55

== ENCOUNTER 2019-06-21 21:52 | Inpatient (IN) ==
[2019-06-21] MEDS ORDERED: cefTRIAXone SODIUM 2,000 MG/70 ML BAG IV STA (22:26)
[2019-06-21 22:36] LABS: Basophils # (auto) 0.03 K/uL (0-0.2); Basophils % (auto) 0.5 %; Eosinophils # (auto) 0.12 K/uL (0-0.5); Eosinophils % (auto) 1.9 %; Hematocrit (blood only) 39.6 % (37-47); Immature Granulocytes # (auto) 0.03 K/uL (0.00-0.02); Immature Granulocytes % (auto) 0.5 %; Lymphocytes % (auto) 27.1 %; Mean Corpuscular Hgb Conc 32.8 g/dL (32-36); Mean Corpuscular Volume 88.2 fL (80-100); Mean Platelet Volume 9.6 fL (7.4-10.4); Monocytes # (auto) 0.55 K/uL (0.11-0.59); Monocytes % (auto) 8.8 %; Neutrophils # (auto) 3.85 K/uL (1.4-6.5); Neutrophils % (auto) 61.2 %; Platelet Count 172 K/uL (130-400); RDW Coefficient of Variation 16.4 % (11.5-14.5); Red Blood Count 4.49 M/uL (4.2-5.4); White Blood Count 6.28 K/uL (4.8-10.8)
[2019-06-21 22:43] LABS: Albumin Level 3.8 gm/dl (3.4-5.0); Calcium 9.8 mg/dl (8.5-10.1); Creatinine Clr Calc Pharmacy 43.5 ml/min; Est GFR (African American) 38.4; Est GFR (Non-African American) 33.2; Potassium 3.9 mmol/L (3.5-5.1)
[2019-06-21 22:46] LABS: Bilirubin,Total 0.6 mg/dl (0.2-1); Total Protein 7.8 gm/dl (6.4-8.2)
--- NOTE | 2019-06-21 23:35 | History & Physical Report ---
Date of Service June 21, 2019 Assessment & Plan (1) Cellulitis of both lower extremities: Continue ceftriaxone 2 g IV daily begun in the ED. Add vancomycin IV per pharmacokinetic monitoring. Was on linezolid 600 mg p.o. twice daily in the outpatient setting, to be held. Consult infectious disease. Consult wound care. Suggest [place] boots. Present on Admission?: Yes (2) Diabetes mellitus with diabetic polyneuropathy: Continue Novolin 70/30 82 units subcu every morning and 85 units subcu every evening. Hold metformin. Placed on Accu-Cheks before meals and at bedtime with NovoLog coverage per scale Present on Admission?: Yes (3) Atrial fibrillation: Atrial fibrillation/hypertension- Continue diltiazem 240 mg every morning, metoprolol succinate 150 mg p.o. every morning and Xarelto 15 mg daily Present on Admission?: Yes (4) Hypertension: See above Present on Admission?: Yes (5) Chronic diastolic (congestive) heart failure: Chronic diastolic congestive heart failure/chronic venous stasis- Predisposition to recurrent lower extremity cellulitis. Continue bumetanide 2 mg p.o. twice daily, potassium chloride and magnesium oxide. Follow serial laboratories. Present on Admission?: Yes (6) Chronic venous stasis: Predisposition to recurrent lower extremity cellulitis. Present on Admission?: Yes (7) COPD (chronic obstructive pulmonary disease): Continue usual treatments: Brovana, albuterol nebulizers, Flovent HFA Present on Admission?: Yes (8) Hyperlipidemia: Continue atorvastatin 40 mg daily Present on Admission?: Yes (9) Hypothyroidism: Continue levothyroxine 50 mcg daily Present on Admission?: Yes History of Present Illness Chief Complaint: The patient presents to the emergency department with worsening bilateral lower extremity redness, swelling, discomfort and drainage over the past weeks. Primary Care Provider: Maxine Roberts MD The patient is a 73-year-old female with past medical history including diabetes mellitus, diabetic peripheral neuropathy, hyperlipidemia, hypertension, obstructive sleep apnea, CKD, COPD, chronic diastolic CHF, chronic venous stasis dermatitis and atrial fibrillation who presents to the emergency department with worsening bilateral lower extremity redness, swelling, discomfort and drainage. Allergies Allergy/AdvReac Type Severity Reaction Status Date / Time Penicillins Allergy Intermediate HIVES Verified 06/21/19 22:09 mineral oil Allergy Unknown Unverified 06/21/19 22:09 metronidazole AdvReac Unknown NAUSEA Verified 06/21/19 22:09 ceresin [From Eucerin] AdvReac Redness of Verified 06/21/19 22:09 Skin emollient combination no.33 AdvReac Redness of Verified 06/21/19 22:09 [From Eucerin] Skin isopropyl myristate AdvReac Redness of Verified 06/21/19 22:09 [From Eucerin] Skin lanolin alcohols AdvReac Redness of Verified 06/21/19 22:09 [From Eucerin] Skin mineral oil [From Eucerin] AdvReac Redness of Verified 06/21/19 22:09 Skin soap [From Eucerin] AdvReac Redness of Verified 06/21/19 22:09 Skin water [From Eucerin] AdvReac Redness of Verified 06/21/19 22:09 Skin Home Medications Home Medications Medication Instructions Recorded Confirmed Type Brovana 15 mcg INHALATION AMPM 09/18/18 06/21/19 History Flovent HFA 1 puff INHALATION BID 09/18/18 06/21/19 History Xarelto 15 mg PO DAILY 09/18/18 06/21/19 History acetaminophen [Tylenol Extra 500 mg PO Q4H PRN 09/18/18 06/21/19 History Strength] albuterol sulfate 1 - 2 puff INHALATION Q4H PRN 09/18/18 06/21/19 History atorvastatin 40 mg PO DAILY 09/18/18 06/21/19 History bumetanide 2 mg PO BID 09/18/18 06/21/19 History cholecalciferol (vitamin D3) 2,000 units PO DAILY 09/18/18 06/21/19 History [Vitamin D3] magnesium oxide 400 mg PO DAILY@1200 09/18/18 06/21/19 History metoprolol succinate 150 mg PO QAM 09/18/18 06/21/19 History diltiazem HCl 240 mg PO QAM 10/06/18 06/21/19 History allopurinol 100 mg tablet 100 mg PO DAILY #30 tab 02/23/19 06/21/19 Rx potassium chloride ER 10 mEq 10 meq PO QAM #90 cap 03/30/19 06/21/19 Rx capsule,extended release Oxygen Home #1 ea 04/03/19 06/21/19 History hydrocortisone 2.5 % topical cream 1 appln TOPICAL DAILY PRN #1 gm 04/03/19 06/21/19 History hydrocortisone 2.5 % topical cream 1 appln AR BID PRN #30 gm 04/03/19 06/21/19 Rx with perineal applicator pen needle, diabetic 32 gauge x #50 ea 04/03/19 06/21/19 History 1/4" nystatin 100,000 unit/gram topical 1 appln TOP TID #60 gm 04/14/19 06/21/19 Rx powder albuterol sulfate 2.5 mg/3 mL 2.5 mg INHALATION .COMPLEX PRN ml 04/24/19 06/21/19 History (0.083 %) solution for nebulization alprazolam 0.5 mg tablet 0.5 mg PO QPM PRN #30 tab 04/24/19 06/21/19 History linezolid 600 mg tablet 600 mg PO BID tab 04/24/19 06/21/19 History triamcinolone acetonide 0.5 % 1 applic TOPICAL BID gm 04/24/19 06/21/19 History topical cream blood sugar diagnostic strips #50 ea 05/15/19 06/21/19 Rx levothyroxine 50 mcg tablet 50 mcg PO DAILY #90 tab 05/21/19 06/21/19 Rx white petrolatum 41 % topical 1 appln TOP 6XD #396 gm 06/03/19 06/21/19 Rx ointment insulin NPH and regular human 82 unit SUBCUT QAM 06/21/19 06/21/19 History [Humulin 70/30 U-100 KwikPen] insulin NPH and regular human 85 unit SUBCUT QPM 06/21/19 06/21/19 History [Novolin 70-30 FlexPen U-100] insulin lispro [Humalog KwikPen 5 unit SUBCUT DAILY@1200 06/21/19 06/21/19 History Insulin] metformin 1,000 mg PO QAM 06/21/19 06/21/19 History metformin 500 mg PO QPM 06/21/19 06/21/19 History Past Med/Surg History Medical History Basal cell carcinoma, face Depression with anxiety Diabetic peripheral neuropathy Hirsutism Hyperlipidemia Hypertension Obstructive sleep apnea Acquired claw toe of right foot Acquired claw toe of left foot Diabetes mellitus with diabetic polyneuropathy CKD (chronic kidney disease) stage 3, GFR 30-59 ml/min COPD (chronic obstructive pulmonary disease) Atrial fibrillation Endometrial cancer (Resolved) Hypothyroidism Anxiety (Chronic) COPD (chronic obstructive pulmonary disease) (Chronic) Diabetes (Chronic) Acquired lymphedema (Inactive) Anxiety (Inactive) Atrial flutter (Inactive) CHF (congestive heart failure) (Inactive) Callus (Inactive) Malignant neoplasm of corpus uteri (Inactive) Neuropathic ulcer of toe of right foot (Inactive) Pleural effusion (Inactive) Sciatica (Inactive) Surgical History S/P hysterectomy (Chronic) S/P thoracentesis (Inactive) Hx of salpingo-oophorectomy, bilateral Family History Father Coronary heart disease Myocardial infarction Mother Alzheimer disease Social History Preferred Language: Faroese Communication Ability: Effective Patient Scheduler Required: No Beliefs That Will Affect Care: None marital status: Current Living Situation: Spouse current occupational status: retired Other Information That Helps Us Care for You: No Feels Safe at Home: Yes Safety Concerns: Feels Safe At This Time Smoking Status: Never smoker Hx Alcohol Use: No Hx Substance Use: No Dental Care, Regularly: Yes Physical Activity Frequency: 1-2 Times per Week Sunscreen Use: No Review of Systems Review of Systems: The patient denies chest pain, palpitations, shortness of breath, dyspnea on exertion, cough, sore throat, fevers, chills, nausea, vomiting, diarrhea , constipation, abdominal pain, pelvic pain, blood in urine or stool, dysuria, urinary frequency or urgency, lightheadedness, dizziness, headache, memory loss, loss of consciousness, imbalance, focal or generalized weakness, numbness or tingling in arms, generalized arthralgias or myalgias, neck pain, or night sweats. The review of systems is otherwise negative other than for that already noted above, and at least 10 systems have been reviewed. Physical Exam Physical Exam: The patient is awake, alert and oriented 3, normocephalic and atraumatic, sitting upright in chair, and in no acute distress. HEENT--PERRL, EOMI, mucous membranes and oropharynx normal. Neck--supple. No JVD. No bruits. Heart--normal S1 and S2. No murmurs, rubs or gallops. Lungs--clear bilaterally, no respiratory distress, no accessory muscle use. Abdomen--normal bowel sounds and soft. Nontender. Nondistended. Morbidly obese. Extremities/Dermatologic--bilaterally there are multiple vesicles, multiple areas of drainage, moderately severe erythema, and 2-3+ pitting edema. Neurologic--cranial nerves II through XII grossly intact. Rheumatologic--limited by body habitus Psychiatric--normal affect. Results & Data Vital Signs (Past 12 Hours) Vital Signs Temp Pulse Resp BP Pulse Ox 06/21/19 23:00 62 18 160/63 H 100 06/21/19 22:08 67 17 100 06/21/19 22:00 64 20 181/42 H 100 06/21/19 21:54 97.5 F L 70 22 181/42 H 100 Laboratory Results Laboratory Results WBC 6.28 K/uL (4.8-10.8) 06/21/19 22:03 RBC 4.49 M/uL (4.2-5.4) 06/21/19 22:03 Hgb 13.0 g/dL (12.0-16.0) 06/21/19 22:03 Hct 39.6 % (37-47) 06/21/19 22:03 MCV 88.2 fL (80-100) 06/21/19 22:03 MCH 29.0 pg (25-34) 06/21/19 22:03 MCHC 32.8 g/dL (32-36) 06/21/19 22:03 RDW Std Deviation 53.0 fL (36.4-46.3) H 06/21/19 22:03 RDW Coeff of Davina 16.4 % (11.5-14.5) H 06/21/19 22:03 Plt Count 172 K/uL (130-400) 06/21/19 22:03 MPV 9.6 fL (7.4-10.4) 06/21/19 22:03 Immature Gran % (Auto) 0.5 % 06/21/19 22:03 Neut % (Auto) 61.2 % 06/21/19 22:03 Lymph % (Auto) 27.1 % 06/21/19 22:03 [place] % (Auto) 8.8 % 06/21/19 22:03 Eos % (Auto) 1.9 % 06/21/19 22:03 Baso % (Auto) 0.5 % 06/21/19 22:03 Immature Gran # (Auto) 0.03 K/uL (0.00-0.02) H 06/21/19 22:03 Neut # (Auto) 3.85 K/uL (1.4-6.5) 06/21/19 22:03 Lymph # (Auto) 1.70 K/uL (1.2-3.4) 06/21/19 22:03 [place] # (Auto) 0.55 K/uL (0.11-0.59) 06/21/19 22:03 Eos # (Auto) 0.12 K/uL (0-0.5) 06/21/19 22:03 Baso # (Auto) 0.03 K/uL (0-0.2) 06/21/19 22:03 Sodium 137 mmol/L (136-145) 06/21/19 22:03 Potassium 3.9 mmol/L (3.5-5.1) 06/21/19 22:03 Chloride 96 mmol/L (98-107) L 06/21/19 22:03 Carbon Dioxide 31 mmol/L (21-32) 06/21/19 22:03 Anion Gap 9.0 (3-11) 06/21/19 22:03 BUN 32 mg/dl (7-18) H 06/21/19 22:03 Creatinine 1.53 mg/dl (0.6-1.2) H 06/21/19 22:03 Est Cr Clr Drug Dosing 43.5 ml/min 06/21/19 22:03 Est GFR ( Amer) 38.4 06/21/19 22:03 Est GFR (Non-Af Amer) 33.2 06/21/19 22:03 BUN/Creatinine Ratio 21.0 (10-20) H 06/21/19 22:03 Glucose 140 mg/dl (70-99) H 06/21/19 22:03 Calcium 9.8 mg/dl (8.5-10.1) 06/21/19 22:03 Total Bilirubin 0.6 mg/dl (0.2-1) 06/21/19 22:03 AST 44 U/L (15-37) H 06/21/19 22:03 ALT 53 U/L (12-78) 06/21/19 22:03 Alkaline Phosphatase 169 U/L (45-117) H 06/21/19 22:03 Total Protein 7.8 gm/dl (6.4-8.2) 06/21/19 22:03 Albumin 3.8 gm/dl (3.4-5.0) 06/21/19 22:03 Globulin 4.0 gm/dl (2.5-4.0) 06/21/19 22:03 Albumin/Globulin Ratio 1.0 (0.9-2) 06/21/19 22:03 Urine Color Yellow 06/22/19 00:25 Urine Appearance Clear (Clear) 06/22/19 00:25 Urine pH 6.0 (4.5-7.5) 06/22/19 00:25 Ur Specific [place] 1.011 (1.000-1.030) 06/22/19 00:25 Urine Protein Negative (Negative) 06/22/19 00:25 Urine Glucose (UA) Negative (Negative) 06/22/19 00:25 Urine Ketones Negative (Negative) 06/22/19 00:25 Urine Blood Negative (Negative) 06/22/19 00:25 Urine Nitrite Negative (Negative) 06/22/19 00:25 Urine Bilirubin Negative (Negative) 06/22/19 00:25 Urine Urobilinogen Negative (Negative) 06/22/19 00:25 Ur Leukocyte Esterase 1+ (Negative) H 06/22/19 00:25 Urine WBC (Auto) 10-30 /hpf (0-5) H 06/22/19 00:25 Urine RBC (Auto) 0-4 /hpf (0-4) 06/22/19 00:25 U Hyaline Cast (Auto) 1-5 /lpf (0-5) 06/22/19 00:25 U Epithel Cells (Auto) 20-30 /lpf (0-5) H 06/22/19 00:25 Urine Bacteria (Auto) Negative (Negative) 06/22/19 00:25 Code Status & VTE Plan Code Status Full code VTE Prophylaxis Plan VTE Prophylaxis will be ordered: Yes PG Care Time/CCT Total # of Minutes Spent Total Time Spent with Patient: Total time spent is greater than 50% in coordination of care (as documented) at patient's floor/unit and/or counseling patient: (1) Diabetes mellitus with diabetic polyneuropathy Diabetes mellitus type: type 2 Diabetes mellitus mcc insulin use: unspecified watermelon inspector insulin use status Qualified Code(s): E11.42 - Type 2 diabetes mellitus with diabetic polyneuropathy
--- NOTE | 2019-06-21 23:37 | Emergency Department Note ---
ED Visit Note I have personally seen and evaluated the patient with the PA. I agree with the diagnosis and management decisions and have been personally involved in the case. Patient will be evaluated by the hospitalist service for admission and further management for failed outpatient treatment of cellulitis. Please see Latrice Villalobos PA-C's notes for further details of the history, physical and visit. .
[2019-06-21] MEDS ORDERED: VANCOMYCIN CONSULT ACTIVE PRN (23:53)
[2019-06-22] MEDS ORDERED: GLUCOSE 10 TABS/TUBE PO PRN (00:17)
[2019-06-22] MEDS ORDERED: GLUCAGON FOR INJ 1 MG VIAL SQ PRN (00:17)
[2019-06-22] MEDS ORDERED: MAGNESIUM HYDROXIDE SUSP 30 ML UDC PO PRN (00:17)
[2019-06-22] MEDS ORDERED: ALUMINUM/MAGNESIUM SUSP 30 ML UDC PO PRN (00:17)
[2019-06-22] MEDS ORDERED: GLUCOSE 40% GEL 15 GM TUBE PO PRN (00:17)
[2019-06-22] MEDS ORDERED: ONDANSETRON INJ 2 MG/ML 2 ML VIAL IV PRN (00:17)
[2019-06-22] MEDS ORDERED: DEXTROSE 50% 50 ML SYRINGE IV PRN (00:17)
[2019-06-22] MEDS ORDERED: CARBOHYDRATES FOR HYPOGLYCEMIA PO PRN (00:17)
[2019-06-22 00:36] LABS: Appearance Urine Clear (Clear); Bacteria Urine Automated Negative (Negative); Bilirubin Urine Negative (Negative); Blood Urine Negative (Negative); Color Urine Yellow; Epithelial Cell Urine Auto 20-30 /lpf (0-5); Glucose Urine UA Negative (Negative); Ketones Urine Negative (Negative); Leukocyte Esterase Urine 1+ (Negative); Nitrite Urine Negative (Negative); Protein Urine Negative (Negative); RBC Urine Automated 0-4 /hpf (0-4); Specific Gravity Urine 1.011 (1.000-1.030); Urobilinogen Urine Negative (Negative)
[2019-06-22] MEDS ORDERED: VANCOMYCIN HCL 2,750 MG in SODIUM CHLORIDE 0.9% 500 ML IV ONE (01:00)
[2019-06-22] MEDS ORDERED: DAPTOMYCIN CONSULT ACTIVE PRN (01:17)
[2019-06-22] MEDS: DAPTOmycin 350 MG in SYRINGE 0 ML IV SCH (01:45)
[2019-06-22] MEDS: FLUTICASONE HFA 110MCG INHALER INH SCH ×3 (01:45→21:13)
[2019-06-22] MEDS: ALPRAZolam 0.5 MG TABLET PO PRN (01:54)
--- NOTE | 2019-06-22 03:42 | Emergency Department Note ---
History of Present Illness General Chief complaint: Swelling/Edema to Extremity Stated complaint: EDEMA TO ANKLE WITH SEEPING History of Present Illness This 73-year-old presents to the ER complaining of worsening cellulitis to lower legs Location: Lower legs Quality: Itchy Severity: Moderate Duration: Past few days Timing: Patient has been on antibiotics for the past 2 weeks Context: Symptoms got worse and patient came in Modifying factors: better with nothing; worse with nothing Patient has been on Bactrim. No improvement. Symptoms been getting worse. Patient denies chest pain, dyspnea, abdominal pain, fever, chills. She is a diabetic. Home Medications Home Medications Medication Instructions Recorded Confirmed Type Brovana 15 mcg INHALATION AMPM 09/18/18 06/21/19 History Flovent HFA 1 puff INHALATION BID 09/18/18 06/21/19 History Xarelto 15 mg PO DAILY 09/18/18 06/21/19 History acetaminophen [Tylenol Extra 500 mg PO Q4H PRN 09/18/18 06/21/19 History Strength] albuterol sulfate 1 - 2 puff INHALATION Q4H PRN 09/18/18 06/21/19 History atorvastatin 40 mg PO DAILY 09/18/18 06/21/19 History bumetanide 2 mg PO BID 09/18/18 06/21/19 History cholecalciferol (vitamin D3) 2,000 units PO DAILY 09/18/18 06/21/19 History [Vitamin D3] magnesium oxide 400 mg PO DAILY@1200 09/18/18 06/21/19 History metoprolol succinate 150 mg PO QAM 09/18/18 06/21/19 History diltiazem HCl 240 mg PO QAM 10/06/18 06/21/19 History allopurinol 100 mg tablet 100 mg PO DAILY #30 tab 02/23/19 06/21/19 Rx potassium chloride ER 10 mEq 10 meq PO QAM #90 cap 03/30/19 06/21/19 Rx capsule,extended release Oxygen Home #1 ea 04/03/19 06/21/19 History hydrocortisone 2.5 % topical cream 1 appln TOPICAL DAILY PRN #1 gm 04/03/19 06/21/19 History hydrocortisone 2.5 % topical cream 1 appln LA BID PRN #30 gm 04/03/19 06/21/19 Rx with perineal applicator pen needle, diabetic 32 gauge x #50 ea 04/03/19 06/21/19 History 1/4" nystatin 100,000 unit/gram topical 1 appln TOP TID #60 gm 04/14/19 06/21/19 Rx powder albuterol sulfate 2.5 mg/3 mL 2.5 mg INHALATION .COMPLEX PRN ml 04/24/19 06/21/19 History (0.083 %) solution for nebulization alprazolam 0.5 mg tablet 0.5 mg PO QPM PRN #30 tab 04/24/19 06/21/19 History linezolid 600 mg tablet 600 mg PO BID tab 04/24/19 06/21/19 History triamcinolone acetonide 0.5 % 1 applic TOPICAL BID gm 04/24/19 06/21/19 History topical cream blood sugar diagnostic strips #50 ea 05/15/19 06/21/19 Rx levothyroxine 50 mcg tablet 50 mcg PO DAILY #90 tab 05/21/19 06/21/19 Rx white petrolatum 41 % topical 1 appln TOP 6XD #396 gm 06/03/19 06/21/19 Rx ointment insulin NPH and regular human 82 unit SUBCUT QAM 06/21/19 06/21/19 History [Humulin 70/30 U-100 KwikPen] insulin NPH and regular human 85 unit SUBCUT QPM 06/21/19 06/21/19 History [Novolin 70-30 FlexPen U-100] insulin lispro [Humalog KwikPen 5 unit SUBCUT DAILY@1200 06/21/19 06/21/19 History Insulin] metformin 1,000 mg PO QAM 06/21/19 06/21/19 History metformin 500 mg PO QPM 06/21/19 06/21/19 History Allergies Allergy/AdvReac Type Severity Reaction Status Date / Time Penicillins Allergy Intermediate HIVES Verified 06/21/19 22:09 mineral oil Allergy Unknown Unverified 06/21/19 22:09 metronidazole AdvReac Unknown NAUSEA Verified 06/21/19 22:09 ceresin [From Eucerin] AdvReac Redness of Verified 06/21/19 22:09 Skin emollient combination no.33 AdvReac Redness of Verified 06/21/19 22:09 [From Eucerin] Skin isopropyl myristate AdvReac Redness of Verified 06/21/19 22:09 [From Eucerin] Skin lanolin alcohols AdvReac Redness of Verified 06/21/19 22:09 [From Eucerin] Skin mineral oil [From Eucerin] AdvReac Redness of Verified 06/21/19 22:09 Skin soap [From Eucerin] AdvReac Redness of Verified 06/21/19 22:09 Skin water [From Eucerin] AdvReac Redness of Verified 06/21/19 22:09 Skin Past Med/Surg History Medical History Basal cell carcinoma, face Depression with anxiety Diabetic peripheral neuropathy Hirsutism Hyperlipidemia Hypertension Obstructive sleep apnea Acquired claw toe of right foot Acquired claw toe of left foot Diabetes mellitus with diabetic polyneuropathy CKD (chronic kidney disease) stage 3, GFR 30-59 ml/min COPD (chronic obstructive pulmonary disease) Atrial fibrillation Endometrial cancer (Resolved) Hypothyroidism Anxiety (Chronic) COPD (chronic obstructive pulmonary disease) (Chronic) Diabetes (Chronic) Acquired lymphedema (Inactive) Anxiety (Inactive) Atrial flutter (Inactive) CHF (congestive heart failure) (Inactive) Callus (Inactive) Malignant neoplasm of corpus uteri (Inactive) Neuropathic ulcer of toe of right foot (Inactive) Pleural effusion (Inactive) Sciatica (Inactive) Surgical History S/P hysterectomy (Chronic) S/P thoracentesis (Inactive) Hx of salpingo-oophorectomy, bilateral Family History Father Coronary heart disease Myocardial infarction Mother Alzheimer disease Social History Preferred Language: Georgian Communication Ability: Effective Center Mgr Required: No Beliefs That Will Affect Care: None marital status: Current Living Situation: Spouse current occupational status: retired Other Information That Helps Us Care for You: No Feels Safe at Home: Yes Safety Concerns: Feels Safe At This Time Smoking Status: Never smoker Hx Alcohol Use: No Hx Substance Use: No Dental Care, Regularly: Yes Physical Activity Frequency: 1-2 Times per Week Sunscreen Use: No Review of Systems All systems reviewed & are unremarkable except as noted in HPI & below Physical Exam Vital Signs Vital Signs - 24 hr 06/21/19 21:54 06/21/19 22:00 06/21/19 22:08 Temperature 36.4 C L Temperature Source Oral Sepsis Recent Fever Within 48 Hours No Sepsis New/Unexplained Change in Mental Status No Sepsis Action Taken by Nursing No Action Required Pulse Rate 70 64 67 Pulse Rate from SpO2 Sensor 64 67 Pulse Rhythm Regular Pulse Strength Normal Respiratory Rate 22 20 17 Respiratory Effort / Characteristics Non-Labored Spontaneous Respiratory Depth Normal Blood Pressure 181/42 H 181/42 H Blood Pressure Mean 88 88 Blood Pressure Position Lying Pulse Oximetry 100 100 100 Oxygen Delivery Method Nasal Cannula Oxygen Flow Rate 3 06/21/19 23:00 Temperature Temperature Source Sepsis Recent Fever Within 48 Hours Sepsis New/Unexplained Change in Mental Status Sepsis Action Taken by Nursing Pulse Rate 62 Pulse Rate from SpO2 Sensor 62 Pulse Rhythm Pulse Strength Respiratory Rate 18 Respiratory Effort / Characteristics Respiratory Depth Blood Pressure 160/63 H Blood Pressure Mean 95 Blood Pressure Position Pulse Oximetry 100 Oxygen Delivery Method Nasal Cannula Oxygen Flow Rate 2 VITALS: Vitals are noted on the nurse's note and reviewed by myself. Vital signs stable. GENERAL: Pleasant elderly female, in no acute distress, nondiaphoretic, well- developed well-nourished. SKIN: Capillary reflex less than 2 seconds. HEENT: Normocephalic. PERRLA. EOMI. Nares patent. Mucous membranes moist. Neck is supple without nuchal rigidity. HEART: Regular rate and rhythm LUNGS: Clear to auscultation bilaterally without wheezes, rales or rhonchi. No retractions or accessory muscle use. ABDOMEN: Positive bowel sounds x 4. Normal tympanic percussion. Soft, nontender, without masses or organomegaly. Rust sign negative. No guarding or rebound tenderness. MUSCULOSKELETAL: No gross musculoskeletal defects. Bilateral lower legs with multiple vesicles, multiple areas of drainage, moderate severe erythema, and 2+ pitting edema; pedal pulses +2 equal and present bilaterally NEURO: Patient was alert and oriented to person place and time. Normal sensation to light and sharp touch. No focal neurological deficits. Course Administered Medications Alprazolam (Xanax) 0.5 mg PO QPM PRN PRN Reason: anxiety Stop: 07/22/19 00:16 Last Admin: 06/22/19 01:54 Dose: 0.5 mg Documented by: [id number] Fluticasone Propionate (Flovent Hfa 110mch) 1 puffs INH BID DYLAN Stop: 07/22/19 00:59 Last Admin: 06/22/19 01:45 Dose: 1 puffs Documented by: [id number] Daptomycin 350 mg/ Syringe 7 mls @ 3.5 mls/min IV Q24H DYLAN Stop: 07/02/19 01:59 Last Admin: 06/22/19 01:45 Dose: 3.5 mls/min Documented by: [id number] Discontinued Medications Ceftriaxone Sodium (Rocephin) 2,000 mg in 70 mls @ 140 mls/hr IV NOW STA Stop: 06/21/19 22:55 Last Infusion: 06/21/19 23:34 Dose: 0 mls/hr Documented by: [id number] Admin: 06/21/19 23:04 Dose: 140 mls/hr Documented by: [id number] Medical Decision Making Medical Records Attestation: I reviewed the patient's medical records. Home Medications Current Medication List: was personally reviewed by me Laboratory Data Attestation: I reviewed the patient's lab results. Result diagrams: 06/21/19 22:03 06/21/19 22:03 Lab Results 06/21/19 06/21/19 Range/Units 22:03 22:03 WBC 6.28 (4.8-10.8) K/uL RBC 4.49 (4.2-5.4) M/uL Hgb 13.0 (12.0-16.0) g/dL Hct 39.6 (37-47) % MCV 88.2 (80-100) fL MCH 29.0 (25-34) pg MCHC 32.8 (32-36) g/dL RDW Std Deviation 53.0 H (36.4-46.3) fL RDW Coeff of Davina 16.4 H (11.5-14.5) % Plt Count 172 (130-400) K/uL MPV 9.6 (7.4-10.4) fL Immature Gran % (Auto) 0.5 % Neut % (Auto) 61.2 % Lymph % (Auto) 27.1 % Towner % (Auto) 8.8 % Eos % (Auto) 1.9 % Baso % (Auto) 0.5 % Immature Gran # (Auto) 0.03 H (0.00-0.02) K/uL Neut # (Auto) 3.85 (1.4-6.5) K/uL Lymph # (Auto) 1.70 (1.2-3.4) K/uL Towner # (Auto) 0.55 (0.11-0.59) K/uL Eos # (Auto) 0.12 (0-0.5) K/uL Baso # (Auto) 0.03 (0-0.2) K/uL Sodium 137 (136-145) mmol/L Potassium 3.9 (3.5-5.1) mmol/L Chloride 96 L (98-107) mmol/L Carbon Dioxide 31 (21-32) mmol/L Anion Gap 9.0 (3-11) BUN 32 H (7-18) mg/dl Creatinine 1.53 H (0.6-1.2) mg/dl Est Cr Clr Drug Dosing 43.5 ml/min Est GFR ( Amer) 38.4 Est GFR (Non-Af Amer) 33.2 BUN/Creatinine Ratio 21.0 H (10-20) Glucose 140 H (70-99) mg/dl Calcium 9.8 (8.5-10.1) mg/dl Total Bilirubin 0.6 (0.2-1) mg/dl AST 44 H (15-37) U/L ALT 53 (12-78) U/L Alkaline Phosphatase 169 H (45-117) U/L Total Protein 7.8 (6.4-8.2) gm/dl Albumin 3.8 (3.4-5.0) gm/dl Globulin 4.0 (2.5-4.0) gm/dl Albumin/Globulin Ratio 1.0 (0.9-2) Blood Pressure Blood Pressure Findings: Elevated blood pressure Blood Pressure Disposition: Referred to patients primary care provider [facility] Narrative Prior records reviewed and summarized as above. Triage Nursing notes reviewed. Additional history obtained from family. The patient's history was concerning for swelling and redness of the skin. Differential diagnosis: Etiologies such as cellulitis, abscess, MRSA infection, DVT, necrotizing fasciitis, dermatitis, drug eruption, as well as others were entertained.. Physical examination: The physical examination was consistent with cellulitis ER treatment provided: Rocephin On reassessment the patient felt better. Diagnostics interpreted by me: The labs revealed no leukocytosis Consultation: A consultation was placed with Dr. Huitron, hospitalist. The case was discussed and diagnostics were reviewed. The patient was evaluated in the ER for further treatment. This appears to be worsening cellulitis of the lower legs who is failed outpatient treatment. Medicine was consulted. Patient was given IV antibiotics. Patient is agreeable to treatment plan of admission. By the evaluation outlined above emergent etiologies such as abscess, necrotizing fasciitis, DVT, as well as others were deemed relatively unlikely. The pt informed about the findings as listed above. All questions were answered and pleased with the treatment. Case reviewed with my attending The chart was completed utilizing [employer] Speech voice recognition software. Grammatical errors, random word insertions, pronoun errors, and incomplete sentences are an occassional consequence of this system due to software limitations, ambient noise, and hardware issues. Any formal questions or concerns about the content, text, or information contained within the body of this dictation should be directly addressed to the physician orthopedic physician assistant for clarification. Impression & Plan Cellulitis of both lower extremities Discharge Plan Visit Data *Final* Discharge Date/Time: 06/21/19 23:56 Chief Complaint: Swelling/Edema to Extremity Stated Complaint: EDEMA TO ANKLE WITH SEEPING ED Provider: Lina Alexander ED Midlevel Provider: Saritha Villalobos Discharge Problem: Cellulitis of both lower extremities Patient Disposition: Admitted As Inpatient Condition: Good Discharge Instructions Interventions: ED Discharge Assessment Last Done: 06/21/19 23:56
[2019-06-22] MEDS: ACETAMINOPHEN 325 MG TAB PO PRN (05:28)
[2019-06-22] MEDS: LEVOTHYROXINE SODIUM 50 MCG TABLET PO SCH (05:29)
[2019-06-22] MEDS: BUMETANIDE 1 MG TAB PO SCH ×2 (05:39→15:35)
[2019-06-22 06:43] LABS: Estimated Average Glucose 186 mg/dl; Hemoglobin A1C 8.1 % (4.5-5.6)
[2019-06-22] MEDS: ARFORMOTEROL TART 15MCG/2ML VIAL INH SCH ×2 (07:02→19:13)
[2019-06-22] MEDS ORDERED: INSULIN HUMAN NPH SC SCH (08:00)
[2019-06-22 08:13] LABS: Hematocrit (blood only) 36.1 % (37-47); Hemoglobin 12.3 g/dL (12.0-16.0); Mean Corpuscular Hemoglobin 29.8 pg (25-34); Mean Corpuscular Hgb Conc 34.1 g/dL (32-36); Mean Corpuscular Volume 87.4 fL (80-100); Mean Platelet Volume 9.3 fL (7.4-10.4); Platelet Count 171 K/uL (130-400); RDW Coefficient of Variation 16.1 % (11.5-14.5); RDW Standard Deviation 51.7 fL (36.4-46.3); Red Blood Count 4.13 M/uL (4.2-5.4); White Blood Count 7.44 K/uL (4.8-10.8)
[2019-06-22 08:43] LABS: BUN Creatinine Ratio 23.6 (10-20); Creatinine Clr Calc Pharmacy 52.4 ml/min; Est GFR (African American) 48.6; Est GFR (Non-African American) 41.9; Potassium 3.5 mmol/L (3.5-5.1)
[2019-06-22] MEDS: dilTIAZem HCL 240 MG CAPCR PO SCH (08:59)
[2019-06-22] MEDS ORDERED: INFLUENZA VACCINE HIGH DOSE 65+ 0.5 ML SYR IM ONE (09:00)
[2019-06-22] MEDS: POTASSIUM CHLORIDE 10 MEQ TABCR PO SCH (09:00)
[2019-06-22] MEDS ORDERED: INFLUENZA ADMINISTRATION CHARGE ONE (09:00)
[2019-06-22] MEDS ORDERED: ATORVASTATIN 40 MG TAB PO SCH (09:00)
[2019-06-22] MEDS ORDERED: [UNRECOGNIZED DRUG - OTHER] SUBCUT SCH (09:00)
[2019-06-22] MEDS: METOPROLOL SUCC 50MG EXT REL TAB PO SCH (09:00)
[2019-06-22] MEDS: allopurinoL 100 MG TAB PO SCH (09:01)
[2019-06-22] MEDS: RIVAROXABAN 15 MG TAB PO SCH (09:01)
[2019-06-22] MEDS: CHOLECALCIFEROL 1,000 UNITS TAB PO SCH (09:01)
[2019-06-22] MEDS: NYSTATIN POWDER 15GM BTL EXT SCH ×4 (09:04→21:14)
[2019-06-22] MEDS: INSULIN ASPART 100 UNITS/ML 3 ML PEN SC SCH ×4 (09:07→21:12)
[2019-06-22] MEDS: INSULIN HUMAN NPH SC SCH ×2 (09:08→18:18)
[2019-06-22] MEDS: TRIAMCINOLONE ACET 0.5% CR 15 GM TUBE TOP SCH ×2 (09:43→21:15)
--- NOTE | 2019-06-22 10:45 | Infectious Disease Consult ---
Date of Consultation June 22, 2019 Assessment & Plan (1) Cellulitis of both lower extremities: suspect most changes ar chronic in nature. she will likely require course of abx, with h/o MRSA will continue with Dapto for now. wound care to eval. she appears to be more agreeable to chronic abx with recurrence. will follow. History of Present Illness Attending Physician: Ba Walsh pt admitted with burning pain in b/l legs r>l. also pain in toes. was previously followed at wound center and Dr. Meadows, was on abx, suggested suppressive abx but pt declined. She was d/c from wound center several months ago. states she has not been on abx recently. previously was on zyvox and dalvance with positive response. denies f/c. no trauma, no open wounds. states she has diarrhea with abx. She is afebrile. on rocephin and dapto currently, toleraitng well. OOB to chair, legs elevated. wbc 7, creat 1.5. UA 10-30 wbc, no bacteria. no gu complaints. no sob, cp, walls, no abd pain, no n/v/d. 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 MRI foot negative for osteo in December. Allergies Allergy/AdvReac Type Severity Reaction Status Date / Time Penicillins Allergy Intermediate HIVES Verified 06/21/19 22:09 mineral oil Allergy Unknown Unverified 06/21/19 22:09 metronidazole AdvReac Unknown NAUSEA Verified 06/21/19 22:09 ceresin [From Eucerin] AdvReac Redness of Verified 06/21/19 22:09 Skin emollient combination no.33 AdvReac Redness of Verified 06/21/19 22:09 [From Eucerin] Skin isopropyl myristate AdvReac Redness of Verified 06/21/19 22:09 [From Eucerin] Skin lanolin alcohols AdvReac Redness of Verified 06/21/19 22:09 [From Eucerin] Skin mineral oil [From Eucerin] AdvReac Redness of Verified 06/21/19 22:09 Skin soap [From Eucerin] AdvReac Redness of Verified 06/21/19 22:09 Skin water [From Eucerin] AdvReac Redness of Verified 06/21/19 22:09 Skin Home Medications Home Medications Medication Instructions Recorded Confirmed Type Brovana 15 mcg INHALATION AMPM 09/18/18 06/21/19 History Flovent HFA 1 puff INHALATION BID 09/18/18 06/21/19 History Xarelto 15 mg PO DAILY 09/18/18 06/21/19 History acetaminophen [Tylenol Extra 500 mg PO Q4H PRN 09/18/18 06/21/19 History Strength] albuterol sulfate 1 - 2 puff INHALATION Q4H PRN 09/18/18 06/21/19 History atorvastatin 40 mg PO DAILY 09/18/18 06/21/19 History bumetanide 2 mg PO BID 09/18/18 06/21/19 History cholecalciferol (vitamin D3) 2,000 units PO DAILY 09/18/18 06/21/19 History [Vitamin D3] magnesium oxide 400 mg PO DAILY@1200 09/18/18 06/21/19 History metoprolol succinate 150 mg PO QAM 09/18/18 06/21/19 History diltiazem HCl 240 mg PO QAM 10/06/18 06/21/19 History allopurinol 100 mg tablet 100 mg PO DAILY #30 tab 02/23/19 06/21/19 Rx potassium chloride ER 10 mEq 10 meq PO QAM #90 cap 03/30/19 06/21/19 Rx capsule,extended release Oxygen Home #1 ea 04/03/19 06/21/19 History hydrocortisone 2.5 % topical cream 1 appln TOPICAL DAILY PRN #1 gm 04/03/19 06/21/19 History hydrocortisone 2.5 % topical cream 1 appln OR BID PRN #30 gm 04/03/19 06/21/19 Rx with perineal applicator pen needle, diabetic 32 gauge x #50 ea 04/03/19 06/21/19 History 1/4" nystatin 100,000 unit/gram topical 1 appln TOP TID #60 gm 04/14/19 06/21/19 Rx powder albuterol sulfate 2.5 mg/3 mL 2.5 mg INHALATION .COMPLEX PRN ml 04/24/19 06/21/19 History (0.083 %) solution for nebulization alprazolam 0.5 mg tablet 0.5 mg PO QPM PRN #30 tab 04/24/19 06/21/19 History linezolid 600 mg tablet 600 mg PO BID tab 04/24/19 06/21/19 History triamcinolone acetonide 0.5 % 1 applic TOPICAL BID gm 04/24/19 06/21/19 History topical cream blood sugar diagnostic strips #50 ea 05/15/19 06/21/19 Rx levothyroxine 50 mcg tablet 50 mcg PO DAILY #90 tab 05/21/19 06/21/19 Rx white petrolatum 41 % topical 1 appln TOP 6XD #396 gm 06/03/19 06/21/19 Rx ointment insulin NPH and regular human 82 unit SUBCUT QAM 06/21/19 06/21/19 History [Humulin 70/30 U-100 KwikPen] insulin NPH and regular human 85 unit SUBCUT QPM 06/21/19 06/21/19 History [Novolin 70-30 FlexPen U-100] insulin lispro [Humalog KwikPen 5 unit SUBCUT DAILY@1200 06/21/19 06/21/19 History Insulin] metformin 1,000 mg PO QAM 06/21/19 06/21/19 History metformin 500 mg PO QPM 06/21/19 06/21/19 History Patient History Medical History Basal cell carcinoma, face Depression with anxiety Diabetic peripheral neuropathy Hirsutism Hyperlipidemia Hypertension Obstructive sleep apnea Acquired claw toe of right foot Acquired claw toe of left foot Diabetes mellitus with diabetic polyneuropathy CKD (chronic kidney disease) stage 3, GFR 30-59 ml/min COPD (chronic obstructive pulmonary disease) Atrial fibrillation Endometrial cancer (Resolved) Hypothyroidism Anxiety (Chronic) COPD (chronic obstructive pulmonary disease) (Chronic) Diabetes (Chronic) Acquired lymphedema (Inactive) Anxiety (Inactive) Atrial flutter (Inactive) CHF (congestive heart failure) (Inactive) Callus (Inactive) Malignant neoplasm of corpus uteri (Inactive) Neuropathic ulcer of toe of right foot (Inactive) Pleural effusion (Inactive) Sciatica (Inactive) Surgical History S/P hysterectomy (Chronic) S/P thoracentesis (Inactive) Hx of salpingo-oophorectomy, bilateral Family History Father Coronary heart disease Myocardial infarction Mother Alzheimer disease Social History Preferred Language: Togolese Communication Ability: Effective Senior Director Insight Required: No Beliefs That Will Affect Care: None marital status: Current Living Situation: Spouse current occupational status: retired Other Information That Helps Us Care for You: No Feels Safe at Home: Yes Safety Concerns: Feels Safe At This Time Smoking Status: Never smoker Hx Alcohol Use: No Hx Substance Use: No Dental Care, Regularly: Yes Physical Activity Frequency: 1-2 Times per Week Sunscreen Use: No Review of Systems Review of Systems: All systems reviewed & are unremarkable except as noted in HPI & below Physical Exam Constitutional: WD/WN, vitals as above Eyes: PERRL, conjunctivae normal, anicteric sclerae ENMT: external ear and nose normal, oropharynx normal Neck: normal visual inspection Respiratory: normal respiratory effort, lungs clear to auscultation Cardiovascular: RRR, no murmur, no edema Gastrointestinal (Abdomen): normal bowel sounds, soft, nontender, no hepatosplenomegaly Musculoskeletal: no cyanosis or clubbing, extremities motor strength 5/5 Skin: no rashes, warm and dry + erythema (b/l chronic changes, right 2nd 3rd toe red, no warmth) Psychiatric: A+Ox3, euthymic affect Results & Data Vital Signs (Past 12 Hours) Vital Signs Temp Pulse Pulse Pulse Pulse Resp BP 06/22/19 08:59 61 06/22/19 07:23 36.9 C 57 L 22 06/22/19 07:02 57 L 16 06/22/19 01:46 06/22/19 00:29 36.3 C L 71 18 06/21/19 23:56 62 16 162/82 H 06/21/19 23:00 62 18 160/63 H BP Pulse Ox 06/22/19 08:59 06/22/19 07:23 148/60 H 97 06/22/19 07:02 98 06/22/19 01:46 161/64 H 06/22/19 00:29 181/73 H 99 06/21/19 23:56 98 06/21/19 23:00 100 PG Care Time/CCT Total # of Minutes Spent Total Time Spent with Patient: Total time spent is greater than 50% in coordination of care (as documented) at patient's floor/unit and/or counseling patient:
--- NOTE | 2019-06-22 12:23 | Hospitalist Progress Note ---
Date of Service June 22, 2019 Assessment & Plan (1) Cellulitis of both lower extremities: - Cellulitis of bilat LE noted on admission; also has erythema and edema of right 2nd and 3rd toe, continue to monitor -- consider MRI of foot to evaluate for osteomyelitis. 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 Meadows and the wound clinic. - Continue Ceftriaxone and Daptomycin for empiric coverage; MRSA swab pending collection. - Consulted ID, appreciate input. - Consulted wound care, appreciate input. Will likely benefit from wound care follow up as outpatient. - Recommend elevating lower extremities as tolerated. (2) Diabetes mellitus with diabetic polyneuropathy: - Holding home Metformin and home insulin. - A1C was 8.1, previously 7.3. - Continue NPH 35 units BID with SSI coverage -- BG has been elevated, considering adjusting coverage vs. pharmacy consult. (3) Atrial fibrillation: - Continue Diltiazem and Metoprolol as prescribed. - Continue Xarelto 15 mg daily. (4) Hypertension: - Continue CCB and beta markos as prescribed. (5) Chronic diastolic (congestive) heart failure: - Most recent TTE in Oct 2016 with EF 55-60%, moderate LVH and mildly reduced right ventricular systolic function. - Monitor daily weights and net I/Os. - Continue Bumex 2 mg PO BID with close monitoring of renal function. - Continue beta markos as prescribed. (6) Chronic venous stasis: - Continue Bumex 2 mg PO BID. (7) COPD (chronic obstructive pulmonary disease): - Continue Brovana, albuterol nebulizers, Flovent HFA. - No evidence of acute exacerbation. (8) Hyperlipidemia: - Continue statin as prescribed. (9) Hypothyroidism: - Continue levothyroxine 50 mcg daily. - TSH was 3.03 in December 2018. (10) DVT prophylaxis: - Xarelto daily. Dispo: Discharge pending improvement in LE cellulitis. Subjective Pt. reports LE redness has not improved, started IV abx less than 24 hours. Has LE edema -- is chronic, on Bumex at home. Denies chest pain, SOB, N/V, diarrhea or constipation, urinary retention. Review of Systems Review of Systems: All systems reviewed & are unremarkable except as noted in HPI & below Constitutional: no fever, no chills, no fatigue, no weakness and no anorexia Respiratory: no cough, no dyspnea, no dyspnea on exertion and no wheezing Cardiovascular: + edema; no chest pain, no palpitations and no lightheadedness Gastrointestinal: no abdominal pain, no nausea, no constipation and no diar kenan/loose stools Genitourinary: no difficulty urinating Musculoskeletal: no back pain and no joint pain Integumentary: + sores, + wounds, + erythema and + dry skin; no skin ulcer Physical Exam Physical Exam: General: Resting comfortably HEENT: NC/AT; PERRLA with EOMI; [place] conjunctiva, MMM. No erythema of posterior pharynx Neck: Supple and nontender Cardiac: RRR Lungs: CTA bilaterally Abdomen: Bowel normoactive X 4; Nontender to palpation Extremities: Warm. +1-2 bilat LE pitting edema in feet, +1 calf edema noted. Neuro: No focal weakness Skin: Erythema of bilat calves, no open wounds with drainage noted. Right 2nd and 3rd toe are warm, edematous and tender to palpation. Results & Data Vital Signs (Past 12 Hours) Vital Signs Temp Pulse Pulse Pulse Resp BP Pulse Ox 06/22/19 08:59 61 06/22/19 07:23 36.9 C 57 L 22 148/60 H 97 06/22/19 07:02 57 L 16 98 06/22/19 01:46 161/64 H 06/22/19 00:29 36.3 C L 71 18 181/73 H 99 Laboratory Results 06/22/19 06/22/19 06/22/19 Range/Units 11:57 08:02 08:02 WBC 7.44 (4.8-10.8) K/uL RBC 4.13 L (4.2-5.4) M/uL Hgb 12.3 (12.0-16.0) g/dL Hct 36.1 L (37-47) % MCV 87.4 (80-100) fL MCH 29.8 (25-34) pg MCHC 34.1 (32-36) g/dL RDW Std Deviation 51.7 H (36.4-46.3) fL RDW Coeff of [place] 16.1 H (11.5-14.5) % Plt Count 171 (130-400) K/uL MPV 9.3 (7.4-10.4) fL Immature Gran % (Auto) % Neut % (Auto) % Lymph % (Auto) % [place] % (Auto) % Eos % (Auto) % Baso % (Auto) % Immature Gran # (Auto) (0.00-0.02) K/uL Neut # (Auto) (1.4-6.5) K/uL Lymph # (Auto) (1.2-3.4) K/uL [place] # (Auto) (0.11-0.59) K/uL Eos # (Auto) (0-0.5) K/uL Baso # (Auto) (0-0.2) K/uL Sodium 135 L (136-145) mmol/L Potassium 3.5 (3.5-5.1) mmol/L Chloride 97 L (98-107) mmol/L Carbon Dioxide 30 (21-32) mmol/L Anion Gap 8.0 (3-11) BUN 30 H (7-18) mg/dl Creatinine 1.26 H (0.6-1.2) mg/dl Est Cr Clr Drug Dosing 52.4 ml/min Est GFR ( Amer) 48.6 Est GFR (Non-Af Amer) 41.9 BUN/Creatinine Ratio 23.6 H (10-20) Glucose 200 H (70-99) mg/dl POC Glucose 167 H (70-99) Estimat Average Glucose mg/dl Hemoglobin A1c (4.5-5.6) % Calcium 9.0 (8.5-10.1) mg/dl Total Bilirubin (0.2-1) mg/dl AST (15-37) U/L ALT (12-78) U/L Alkaline Phosphatase (45-117) U/L Total Protein (6.4-8.2) gm/dl Albumin (3.4-5.0) gm/dl Globulin (2.5-4.0) gm/dl Albumin/Globulin Ratio (0.9-2) Urine Color Urine Appearance (Clear) Urine pH (4.5-7.5) Ur Specific [place] (1.000-1.030) Urine Protein (Negative) Urine Glucose (UA) (Negative) Urine Ketones (Negative) Urine Blood (Negative) Urine Nitrite (Negative) Urine Bilirubin (Negative) Urine Urobilinogen (Negative) Ur Leukocyte Esterase (Negative) Urine WBC (Auto) (0-5) /hpf Urine RBC (Auto) (0-4) /hpf U Hyaline Cast (Auto) (0-5) /lpf U Epithel Cells (Auto) (0-5) /lpf Urine Bacteria (Auto) (Negative) 06/22/19 06/22/19 06/21/19 Range/Units 08:01 00:25 22:03 WBC (4.8-10.8) K/uL RBC (4.2-5.4) M/uL Hgb (12.0-16.0) g/dL Hct (37-47) % MCV (80-100) fL MCH (25-34) pg MCHC (32-36) g/dL RDW Std Deviation (36.4-46.3) fL RDW Coeff of [place]ina (11.5-14.5) % Plt Count (130-400) K/uL MPV (7.4-10.4) fL Immature Gran % (Auto) % Neut % (Auto) % Lymph % (Auto) % [place] % (Auto) % Eos % (Auto) % Baso % (Auto) % Immature Gran # (Auto) (0.00-0.02) K/uL Neut # (Auto) (1.4-6.5) K/uL Lymph # (Auto) (1.2-3.4) K/uL [place] # (Auto) (0.11-0.59) K/uL Eos # (Auto) (0-0.5) K/uL Baso # (Auto) (0-0.2) K/uL Sodium (136-145) mmol/L Potassium (3.5-5.1) mmol/L Chloride (98-107) mmol/L Carbon Dioxide (21-32) mmol/L Anion Gap (3-11) BUN (7-18) mg/dl Creatinine (0.6-1.2) mg/dl Est Cr Clr Drug Dosing ml/min Est GFR ( Amer) Est GFR (Non-Af Amer) BUN/Creatinine Ratio (10-20) Glucose (70-99) mg/dl POC Glucose 187 H (70-99) Estimat Average Glucose 186 mg/dl Hemoglobin A1c 8.1 H (4.5-5.6) % Calcium (8.5-10.1) mg/dl Total Bilirubin (0.2-1) mg/dl AST (15-37) U/L ALT (12-78) U/L Alkaline Phosphatase (45-117) U/L Total Protein (6.4-8.2) gm/dl Albumin (3.4-5.0) gm/dl Globulin (2.5-4.0) gm/dl Albumin/Globulin Ratio (0.9-2) Urine Color Yellow Urine Appearance Clear (Clear) Urine pH 6.0 (4.5-7.5) Ur Specific [place] 1.011 (1.000-1.030) Urine Protein Negative (Negative) Urine Glucose (UA) Negative (Negative) Urine Ketones Negative (Negative) Urine Blood Negative (Negative) Urine Nitrite Negative (Negative) Urine Bilirubin Negative (Negative) Urine Urobilinogen Negative (Negative) Ur Leukocyte Esterase 1+ H (Negative) Urine WBC (Auto) 10-30 H (0-5) /hpf Urine RBC (Auto) 0-4 (0-4) /hpf U Hyaline Cast (Auto) 1-5 (0-5) /lpf U Epithel Cells (Auto) 20-30 H (0-5) /lpf Urine Bacteria (Auto) Negative (Negative) 06/21/19 06/21/19 Range/Units 22:03 22:03 WBC 6.28 (4.8-10.8) K/uL RBC 4.49 (4.2-5.4) M/uL Hgb 13.0 (12.0-16.0) g/dL Hct 39.6 (37-47) % MCV 88.2 (80-100) fL MCH 29.0 (25-34) pg MCHC 32.8 (32-36) g/dL RDW Std Deviation 53.0 H (36.4-46.3) fL RDW Coeff of [place] 16.4 H (11.5-14.5) % Plt Count 172 (130-400) K/uL MPV 9.6 (7.4-10.4) fL Immature Gran % (Auto) 0.5 % Neut % (Auto) 61.2 % Lymph % (Auto) 27.1 % [place] % (Auto) 8.8 % Eos % (Auto) 1.9 % Baso % (Auto) 0.5 % Immature Gran # (Auto) 0.03 H (0.00-0.02) K/uL Neut # (Auto) 3.85 (1.4-6.5) K/uL Lymph # (Auto) 1.70 (1.2-3.4) K/uL [place] # (Auto) 0.55 (0.11-0.59) K/uL Eos # (Auto) 0.12 (0-0.5) K/uL Baso # (Auto) 0.03 (0-0.2) K/uL Sodium 137 (136-145) mmol/L Potassium 3.9 (3.5-5.1) mmol/L Chloride 96 L (98-107) mmol/L Carbon Dioxide 31 (21-32) mmol/L Anion Gap 9.0 (3-11) BUN 32 H (7-18) mg/dl Creatinine 1.53 H (0.6-1.2) mg/dl Est Cr Clr Drug Dosing 43.5 ml/min Est GFR ( Amer) 38.4 Est GFR (Non-Af Amer) 33.2 BUN/Creatinine Ratio 21.0 H (10-20) Glucose 140 H (70-99) mg/dl POC Glucose (70-99) Estimat Average Glucose mg/dl Hemoglobin A1c (4.5-5.6) % Calcium 9.8 (8.5-10.1) mg/dl Total Bilirubin 0.6 (0.2-1) mg/dl AST 44 H (15-37) U/L ALT 53 (12-78) U/L Alkaline Phosphatase 169 H (45-117) U/L Total Protein 7.8 (6.4-8.2) gm/dl Albumin 3.8 (3.4-5.0) gm/dl Globulin 4.0 (2.5-4.0) gm/dl Albumin/Globulin Ratio 1.0 (0.9-2) Urine Color Urine Appearance (Clear) Urine pH (4.5-7.5) Ur Specific [place] (1.000-1.030) Urine Protein (Negative) Urine Glucose (UA) (Negative) Urine Ketones (Negative) Urine Blood (Negative) Urine Nitrite (Negative) Urine Bilirubin (Negative) Urine Urobilinogen (Negative) Ur Leukocyte Esterase (Negative) Urine WBC (Auto) (0-5) /hpf Urine RBC (Auto) (0-4) /hpf U Hyaline Cast (Auto) (0-5) /lpf U Epithel Cells (Auto) (0-5) /lpf Urine Bacteria (Auto) (Negative) PG Care Time/CCT Total # of Minutes Spent Total Time Spent with Patient: Total time spent is greater than 50% in coordination of care (as documented) at patient's floor/unit and/or counseling patient: (1) Diabetes mellitus with diabetic polyneuropathy Diabetes mellitus residential insulin use: unspecified residential insulin use status Diabetes mellitus type: type 2 Qualified Code(s): E11.42 - Type 2 diabetes mellitus with diabetic polyneuropathy
[2019-06-22] MEDS: MAGNESIUM OXIDE 400 MG TAB PO SCH (12:58)
[2019-06-22] MEDS: cefTRIAXone SODIUM 2,000 MG in DEXTROSE 5% 50 ML IV SCH (22:39)
[2019-06-23] MEDS: DAPTOmycin 350 MG in SYRINGE 0 ML IV SCH (02:13)
[2019-06-23] MEDS: BUMETANIDE 1 MG TAB PO SCH ×2 (05:58→17:10)
[2019-06-23] MEDS: LEVOTHYROXINE SODIUM 50 MCG TABLET PO SCH (05:59)
[2019-06-23 06:24] LABS: BUN Creatinine Ratio 23.7 (10-20); Calcium 8.9 mg/dl (8.5-10.1); Creatinine Clr Calc Pharmacy 57.2 ml/min; Est GFR (African American) 54.3; Est GFR (Non-African American) 46.8; Potassium 3.5 mmol/L (3.5-5.1)
[2019-06-23] MEDS: ARFORMOTEROL TART 15MCG/2ML VIAL INH SCH ×2 (07:06→19:41)
[2019-06-23] MEDS: CHOLECALCIFEROL 1,000 UNITS TAB PO SCH (09:23)
[2019-06-23] MEDS: METOPROLOL SUCC 50MG EXT REL TAB PO SCH (09:23)
[2019-06-23] MEDS: allopurinoL 100 MG TAB PO SCH (09:23)
[2019-06-23] MEDS: TRIAMCINOLONE ACET 0.5% CR 15 GM TUBE TOP SCH ×2 (09:24→21:40)
[2019-06-23] MEDS: RIVAROXABAN 15 MG TAB PO SCH (09:24)
[2019-06-23] MEDS: FLUTICASONE HFA 110MCG INHALER INH SCH ×2 (09:24→21:39)
[2019-06-23] MEDS: NYSTATIN POWDER 15GM BTL EXT SCH ×3 (09:24→21:41)
[2019-06-23] MEDS: dilTIAZem HCL 240 MG CAPCR PO SCH (09:24)
[2019-06-23] MEDS: POTASSIUM CHLORIDE 10 MEQ TABCR PO SCH (09:24)
[2019-06-23] MEDS: INSULIN ASPART 100 UNITS/ML 3 ML PEN SC SCH ×4 (09:28→21:41)
[2019-06-23] MEDS: INSULIN HUMAN NPH SC SCH ×3 (09:30→17:51)
--- NOTE | 2019-06-23 12:51 | Hospitalist Progress Note ---
Date of Service June 23, 2019 Assessment & Plan (1) Cellulitis of both lower extremities: - Cellulitis of bilat LE noted on admission; also has erythema and edema of right 2nd and 3rd toe. 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 Meadows and the wound clinic. - Continue Ceftriaxone and Daptomycin; MRSA swab was negative, consider d/c'ing Dapto over next 24 hours. - Consulted ID, appreciate input. - Consulted wound care, appreciate input. Will likely need to follow up with wound care as outpatient. - Consulted Dr. Carnes from wound care for possible right third toe debridement. - Elevate lower extremities as tolerated. (2) Diabetes mellitus with diabetic polyneuropathy: - Holding home Metformin and home insulin. - A1C was 8.1, previously 7.3. - Continue NPH - increase to 40 units BID; SSI coverage. (3) Atrial fibrillation: - Continue Diltiazem and Metoprolol as prescribed. - Continue Xarelto 15 mg daily. (4) Hypertension: - Continue CCB and beta markos as prescribed. (5) Chronic diastolic (congestive) heart failure: - Most recent TTE in Oct 2016 with EF 55-60%, moderate LVH and mildly reduced right ventricular systolic function. - Monitor daily weights and net I/Os. - Continue Bumex 2 mg PO BID. - Continue beta markos as prescribed. (6) Chronic venous stasis: - Continue Bumex 2 mg PO BID. (7) COPD (chronic obstructive pulmonary disease): - Continue Brovana, albuterol nebulizers, Flovent HFA. - No evidence of acute exacerbation. (8) Hyperlipidemia: - Continue statin as prescribed. (9) Hypothyroidism: - Continue Levothyroxine 50 mcg daily. - TSH was 3.03 in December 2018. (10) Morbid obesity: - BMI 54.8 -- encourage weight loss and exercise. (11) DVT prophylaxis: - Xarelto daily. Dispo: Discharge pending improvement in LE cellulitis. Will need close follow up with the wound clinic, ID and PCP. Subjective Pt. is doing well -- reports burning and itching of lower extremities now improved. Wound care consulted, placed dressing on both calves. Denies fever/chills, chest pain, SOB, N/V. Review of Systems Review of Systems: All systems reviewed & are unremarkable except as noted in HPI & below Constitutional: no fever, no chills, no fatigue and no weakness Respiratory: no cough, no dyspnea, no dyspnea on exertion and no wheezing Cardiovascular: + edema; no chest pain and no palpitations Gastrointestinal: no abdominal pain, no nausea and no constipation Genitourinary: no difficulty urinating Musculoskeletal: + swelling; no back pain and no joint pain Integumentary: + erythema, + dry skin and + pruritus; no skin ulcer, no sores and no wounds Physical Exam Physical Exam: General: Resting comfortably HEENT: NC/AT; PERRLA with EOMI; [place] conjunctiva, MMM. No erythema of posterior pharynx Neck: Supple and nontender Cardiac: RRR Lungs: CTA bilaterally Abdomen: Bowel normoactive X 4; Nontender to palpation Extremities: Warm. +1 bilat LE pitting edema extending from knees distally. Neuro: No focal weakness Skin: Erythema of bilat calves - not visualized on exam today due to dressing; Right 2nd and 3rd toe were warm/edematoous on 06/22, also with dressing in place. Results & Data Vital Signs (Past 12 Hours) Vital Signs Temp Pulse Resp BP Pulse Ox 06/23/19 09:18 36.4 C L 68 149/71 H 98 06/23/19 07:26 36.4 C L 79 18 188/73 H 93 Laboratory Results 06/23/19 06/23/19 06/23/19 Range/Units 12:01 08:13 05:17 Sodium 137 (136-145) mmol/L Potassium 3.5 (3.5-5.1) mmol/L Chloride 99 (98-107) mmol/L Carbon Dioxide 31 (21-32) mmol/L Anion Gap 7.0 (3-11) BUN 27 H (7-18) mg/dl Creatinine 1.15 (0.6-1.2) mg/dl Est Cr Clr Drug Dosing 57.2 ml/min Est GFR ( Amer) 54.3 Est GFR (Non-Af Amer) 46.8 BUN/Creatinine Ratio 23.7 H (10-20) Glucose 174 H (70-99) mg/dl POC Glucose 176 H 202 H (70-99) Calcium 8.9 (8.5-10.1) mg/dl Nasal Screen MRSA (PCR) (Negative) 1006/22/19 06/22/19 Range/Units 20:48 17:34 13:30 Sodium (136-145) mmol/L Potassium (3.5-5.1) mmol/L Chloride (98-107) mmol/L Carbon Dioxide (21-32) mmol/L Anion Gap (3-11) BUN (7-18) mg/dl Creatinine (0.6-1.2) mg/dl Est Cr Clr Drug Dosing ml/min Est GFR ( Amer) Est GFR (Non-Af Amer) BUN/Creatinine Ratio (10-20) Glucose (70-99) mg/dl POC Glucose 208 H 170 H (70-99) Calcium (8.5-10.1) mg/dl Nasal Screen MRSA (PCR) Negative (Negative) PG Care Time/CCT Total # of Minutes Spent Total Time Spent with Patient: Total time spent is greater than 50% in coordination of care (as documented) at patient's floor/unit and/or counseling patient: (1) Diabetes mellitus with diabetic polyneuropathy 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
[2019-06-23] MEDS: MAGNESIUM OXIDE 400 MG TAB PO SCH (13:03)
--- NOTE | 2019-06-23 13:50 | Wound Consultation ---
Date of Consultation June 23, 2019 Assessment & Plan (1) Cellulitis of both lower extremities: Patient with cellulitis of bilateral lower extremities in the setting of chronic venous insufficiency. ABIs were obtained but accuracy is questionable. We will order arterial duplex study for patient. She would benefit from a daily compression wraps while she is inpatient. Agree with continued antifungal powder. (2) Acquired claw toe of right foot: Patient with chronic required clot to the right third toe. There is a thick callus at the distal tip. This needed debridement. After obtaining permission topical Xylocaine was applied. Using a curette the callus was pared. This represents the periwound callus. There does not appear to be any open wound. Continue antibiotics per infectious disease Thank you for allowing me to participate in the care of this patient. Please not hesitate to call with any questions. History of Present Illness Reason for Consultation: Right third toe Attending Physician: Ba Walsh This is a 73-year-old female who is known to the wound clinic who is admitted with cellulitis of bilateral lower extremities in the setting of chronic venous insufficiency. Patient has a history of chronic venous insufficiency and hammertoe. Allergies Allergy/AdvReac Type Severity Reaction Status Date / Time Penicillins Allergy Intermediate HIVES Verified 06/21/19 22:09 mineral oil Allergy Unknown Unverified 06/21/19 22:09 metronidazole AdvReac Unknown NAUSEA Verified 06/21/19 22:09 ceresin [From Eucerin] AdvReac Redness of Verified 06/21/19 22:09 Skin emollient combination no.33 AdvReac Redness of Verified 06/21/19 22:09 [From Eucerin] Skin isopropyl myristate AdvReac Redness of Verified 06/21/19 22:09 [From Eucerin] Skin lanolin alcohols AdvReac Redness of Verified 06/21/19 22:09 [From Eucerin] Skin mineral oil [From Eucerin] AdvReac Redness of Verified 06/21/19 22:09 Skin soap [From Eucerin] AdvReac Redness of Verified 06/21/19 22:09 Skin water [From Eucerin] AdvReac Redness of Verified 06/21/19 22:09 Skin Home Medications Home Medications Medication Instructions Recorded Confirmed Type Brovana 15 mcg INHALATION AMPM 09/18/18 06/21/19 History Flovent HFA 1 puff INHALATION BID 09/18/18 06/21/19 History Xarelto 15 mg PO DAILY 09/18/18 06/21/19 History acetaminophen [Tylenol Extra 500 mg PO Q4H PRN 09/18/18 06/21/19 History Strength] albuterol sulfate 1 - 2 puff INHALATION Q4H PRN 09/18/18 06/21/19 History atorvastatin 40 mg PO DAILY 09/18/18 06/21/19 History bumetanide 2 mg PO BID 09/18/18 06/21/19 History cholecalciferol (vitamin D3) 2,000 units PO DAILY 09/18/18 06/21/19 History [Vitamin D3] magnesium oxide 400 mg PO DAILY@1200 09/18/18 06/21/19 History metoprolol succinate 150 mg PO QAM 09/18/18 06/21/19 History diltiazem HCl 240 mg PO QAM 10/06/18 06/21/19 History allopurinol 100 mg tablet 100 mg PO DAILY #30 tab 02/23/19 06/21/19 Rx potassium chloride ER 10 mEq 10 meq PO QAM #90 cap 03/30/19 06/21/19 Rx capsule,extended release Oxygen Home #1 ea 04/03/19 06/21/19 History hydrocortisone 2.5 % topical cream 1 appln TOPICAL DAILY PRN #1 gm 04/03/19 06/21/19 History hydrocortisone 2.5 % topical cream 1 appln VT BID PRN #30 gm 04/03/19 06/21/19 Rx with perineal applicator pen needle, diabetic 32 gauge x #50 ea 04/03/19 06/21/19 History 1/4" nystatin 100,000 unit/gram topical 1 appln TOP TID #60 gm 04/14/19 06/21/19 Rx powder albuterol sulfate 2.5 mg/3 mL 2.5 mg INHALATION .COMPLEX PRN ml 04/24/19 06/21/19 History (0.083 %) solution for nebulization alprazolam 0.5 mg tablet 0.5 mg PO QPM PRN #30 tab 04/24/19 06/21/19 History linezolid 600 mg tablet 600 mg PO BID tab 04/24/19 06/21/19 History triamcinolone acetonide 0.5 % 1 applic TOPICAL BID gm 04/24/19 06/21/19 History topical cream blood sugar diagnostic strips #50 ea 05/15/19 06/21/19 Rx levothyroxine 50 mcg tablet 50 mcg PO DAILY #90 tab 05/21/19 06/21/19 Rx white petrolatum 41 % topical 1 appln TOP 6XD #396 gm 06/03/19 06/21/19 Rx ointment insulin NPH and regular human 82 unit SUBCUT QAM 06/21/19 06/21/19 History [Humulin 70/30 U-100 KwikPen] insulin NPH and regular human 85 unit SUBCUT QPM 06/21/19 06/21/19 History [Novolin 70-30 FlexPen U-100] insulin lispro [Humalog KwikPen 5 unit SUBCUT DAILY@1200 06/21/19 06/21/19 History Insulin] metformin 1,000 mg PO QAM 06/21/19 06/21/19 History metformin 500 mg PO QPM 06/21/19 06/21/19 History Patient History Medical History Basal cell carcinoma, face Depression with anxiety Diabetic peripheral neuropathy Hirsutism Hyperlipidemia Hypertension Obstructive sleep apnea Acquired claw toe of right foot Acquired claw toe of left foot Diabetes mellitus with diabetic polyneuropathy CKD (chronic kidney disease) stage 3, GFR 30-59 ml/min COPD (chronic obstructive pulmonary disease) Atrial fibrillation Endometrial cancer (Resolved) Hypothyroidism Anxiety (Chronic) COPD (chronic obstructive pulmonary disease) (Chronic) Diabetes (Chronic) Acquired lymphedema (Inactive) Anxiety (Inactive) Atrial flutter (Inactive) CHF (congestive heart failure) (Inactive) Callus (Inactive) Malignant neoplasm of corpus uteri (Inactive) Neuropathic ulcer of toe of right foot (Inactive) Pleural effusion (Inactive) Sciatica (Inactive) Surgical History S/P hysterectomy (Chronic) S/P thoracentesis (Inactive) Hx of salpingo-oophorectomy, bilateral Family History Father Coronary heart disease Myocardial infarction Mother Alzheimer disease Social History Preferred Language: Greek Communication Ability: Effective Processing Mgr Required: No Beliefs That Will Affect Care: None marital status: Current Living Situation: Spouse current occupational status: retired Other Information That Helps Us Care for You: No Feels Safe at Home: Yes Safety Concerns: Feels Safe At This Time Smoking Status: Never smoker Hx Alcohol Use: No Hx Substance Use: No Dental Care, Regularly: Yes Physical Activity Frequency: 1-2 Times per Week Sunscreen Use: No Review of Systems Review of Systems: All systems reviewed & are unremarkable except as noted in HPI & below Physical Exam Skin: Patient with bilateral hemosiderin staining legs consistent with venous insufficiency. She has been appears to be maculopapular rash at the proximal aspect of the lower extremity. Right third toe with hammer deformity. There is a thick callus present on the tip of the toe. Neurologic: awake; not confused Psychiatric: A+Ox3, euthymic affect Results & Data Vital Signs (Past 12 Hours) Vital Signs Temp Pulse Resp BP Pulse Ox 06/23/19 09:18 36.4 C L 68 149/71 H 98 06/23/19 07:26 36.4 C L 79 18 188/73 H 93 PG Care Time/CCT Total # of Minutes Spent Total Time Spent with Patient: Total time spent is greater than 50% in coordination of care (as documented) at patient's floor/unit and/or counseling patient:
--- NOTE | 2019-06-23 14:23 | Infectious Disease Progress Nt ---
Date of Service June 23, 2019 Assessment & Plan (1) Cellulitis of both lower extremities: suspect most changes ar chronic in nature. she will likely require course of abx, with h/o MRSA will continue with Dapto for now. wound care to eval. she appears to be more agreeable to chronic abx with recurrence. will follow. will likely need outpt f/u at wound center with ID as well. and likely chronic suppression, would suggest prolonged course of po doxy. Subjective remains on IV abx, s/p wrapping by wound center. afebrile. no am labs. Results & Data Vital Signs (Past 12 Hours) Vital Signs Temp Pulse Resp BP Pulse Ox 06/23/19 09:18 36.4 C L 68 149/71 H 98 06/23/19 07:26 36.4 C L 79 18 188/73 H 93 Laboratory Results Microbiology 06/22/19 00:25 Urine,Clean Catch Urine Culture - Preliminary No growth - Less than 1,000 colonies/mL, Final report to follow. PG Care Time/CCT Total # of Minutes Spent Total Time Spent with Patient: Total time spent is greater than 50% in coordination of care (as documented) at patient's floor/unit and/or counseling patient:
--- NOTE | 2019-06-23 15:59 | Ultrasound Report ---
ULTRASOUND BILATERAL LOWER EXTREMITY ARTERIAL CLINICAL HISTORY: Calf pain. COMPARISON STUDY: Bilateral lower extremity arterial ultrasound dated 03/10/2017. TECHNIQUE: Real-time, grayscale, and color Doppler sonography of the arteries of the right and left l ower extremities performed from the inguinal crease to the foot. The patient declined ankle-brachial index assessment as she reportedly had them done earlier today. FINDINGS: Right lower extremity: There is atherosclerotic plaque and irregularity seen throughout the arteries of the right lower extremity. There are biphasic waveforms in the common femoral artery with velociti es measuring up to 140 cm/s. The profunda femoris is patent with velocities measuring up to 85 cm/s. There are biphasic to triphasic waveforms seen throughout the superficial femoral artery. Velocities proximally measure 228 cm/s, velocities in the midportion measure up to 176 cm/s, and velocities dist ally measure up to 216 cm/s. There are biphasic waveforms in the popliteal artery with velocities esa suring up to 123 cm/s. Arterial waveforms in the distal popliteal artery are somewhat blunted. There is three-vessel runoff to the foot. Velocities in the posterior tibial artery measure 41 cm/s, veloci ties within the anterior tibial artery measure up to 170 cm/s, and velocities in the peroneal artery measure up to 52 cm/s. The dorsalis pedis artery is patent with velocities measuring up to 42 cm/s. Left lower extremity: Atherosclerotic plaque and irregularity seen throughout the arteries of the lef t lower extremity. There are biphasic to triphasic waveforms in the common femoral artery with veloci ties measuring up to 330 cm/s. The profundus femoris artery is patent with velocities measuring up to 110 cm/s. There are biphasic to triphasic waveforms seen throughout the superficial femoral artery. Velocities proximally measure up to 323 cm/s, velocities in the midportion measure up to 96 cm/s with blunted arterial upstroke, and velocities in the distal superficial femoral artery measure up to 213 cm/s. There are biphasic arterial waveforms in the popliteal artery with velocities measuring up to 163 cm/s. There is three-vessel runoff to the foot. Velocities within the anterior tibial artery nargis ure up to 70 cm/s, velocities in the posterior tibial artery measure up to 166 cm/s, and velocities i n the peroneal artery measure up to 76 cm/s. The dorsalis pedis artery is patent with velocities narigs uring up to 61 cm/s. IMPRESSION: 1. The patient declined ankle-brachial index assessment as this was reportedly performed earlier the same day. 2. There are elevated velocities within the right superficial femoral artery, the left common femoral artery, and the left superficial femoral artery as above indicating foci of high-grade stenosis. 3. No focal vessel occlusion is identified in either leg. Dictated: 06/23/2019 3:07 PM Transcribed: 06/23/2019 3:22 PM Gabby [id number] [email or web address] Electronically signed by: Ryan Montero M.D. 06/23/2019 3:58 PM
[2019-06-23] MEDS: cefTRIAXone SODIUM 2,000 MG in DEXTROSE 5% 50 ML IV SCH (22:29)
[2019-06-24] MEDS: ALPRAZolam 0.5 MG TABLET PO PRN (00:53)
[2019-06-24] MEDS: ACETAMINOPHEN 325 MG TAB PO PRN (01:37)
[2019-06-24] MEDS: DAPTOmycin 350 MG in SYRINGE 0 ML IV SCH (01:42)
[2019-06-24] MEDS: LEVOTHYROXINE SODIUM 50 MCG TABLET PO SCH (05:42)
[2019-06-24] MEDS: BUMETANIDE 1 MG TAB PO SCH ×2 (05:43→17:03)
[2019-06-24 05:52] LABS: Hemoglobin 11.5 g/dL (12.0-16.0); Mean Corpuscular Hgb Conc 32.9 g/dL (32-36); Mean Corpuscular Volume 88.2 fL (80-100); Mean Platelet Volume 9.4 fL (7.4-10.4); Platelet Count 153 K/uL (130-400); RDW Coefficient of Variation 16.2 % (11.5-14.5); RDW Standard Deviation 52.2 fL (36.4-46.3); Red Blood Count 3.97 M/uL (4.2-5.4)
[2019-06-24 06:22] LABS: BUN Creatinine Ratio 22.7 (10-20); Calcium 8.8 mg/dl (8.5-10.1); Creatinine Clr Calc Pharmacy 54.8 ml/min; Est GFR (African American) 52.1; Est GFR (Non-African American) 44.9; Magnesium 1.9 mg/dl (1.8-2.4); Potassium 3.4 mmol/L (3.5-5.1)
[2019-06-24] MEDS: ARFORMOTEROL TART 15MCG/2ML VIAL INH SCH ×2 (07:57→19:10)
[2019-06-24] MEDS ORDERED: POTASSIUM CHLORIDE 20 MEQ TABCR PO ONE (08:00)
[2019-06-24] MEDS ORDERED: PHARMACY GLYCEMIC MGMT CONSULT PRN (08:19)
[2019-06-24] MEDS ORDERED: INSULIN HUMAN NPH SC SCH (08:30)
[2019-06-24] MEDS: POTASSIUM CHLORIDE 10 MEQ TABCR PO SCH (08:56)
[2019-06-24] MEDS: RIVAROXABAN 15 MG TAB PO SCH (08:56)
[2019-06-24] MEDS: METOPROLOL SUCC 50MG EXT REL TAB PO SCH (08:57)
[2019-06-24] MEDS: CHOLECALCIFEROL 1,000 UNITS TAB PO SCH (08:57)
[2019-06-24] MEDS: allopurinoL 100 MG TAB PO SCH (08:57)
[2019-06-24] MEDS: TRIAMCINOLONE ACET 0.5% CR 15 GM TUBE TOP SCH ×2 (08:58→21:15)
[2019-06-24] MEDS: NYSTATIN POWDER 15GM BTL EXT SCH ×3 (08:58→21:15)
[2019-06-24] MEDS: dilTIAZem HCL 240 MG CAPCR PO SCH (08:58)
[2019-06-24] MEDS: FLUTICASONE HFA 110MCG INHALER INH SCH ×2 (08:58→21:16)
[2019-06-24] MEDS: INSULIN ASPART 100 UNITS/ML 3 ML PEN SC SCH ×4 (09:01→21:18)
[2019-06-24] MEDS: INSULIN HUMAN NPH SC SCH ×2 (09:04→21:17)
--- NOTE | 2019-06-24 09:58 | Pharmacy Report ---
Glycemic Control Consultation - Date of Service June 24, 2019 - Scope Scope: Glycemic Pharmacist consulted for glycemic control and to write orders per [facility] inpatient glycemic control protocol - Objective Weight: 134.2 kg Accuchecks BSG (last 24hrs): 06/23/19 06/23/19 06/23/19 12:01 17:23 20:45 Glucose POC Glucose 176 H 140 H 169 H 06/24/19 06/24/19 05:41 08:13 Glucose 192 H POC Glucose 210 H Laboratory Data (last 24hrs): 06/24/19 05:41 Potassium 3.4 L Carbon Dioxide 30 Anion Gap 7.0 Creatinine 1.19 Est Cr Clr Drug Dosing 54.8 HbA1c: Hemoglobin A1c 8.1 % (4.5-5.6) H 06/21/19 22:03 - Recent Pertinent Medications Outpatient Anti-diabetic Regimen: * NPH 82 units SQ AM + NPH 85 units SQ PM * Humalog 5 units SQ AM * Total daily dose ~ 172 units/day The patient is currently receiving: * Basal insulin: NPH 40 units BID with meals * Correctional Insulin: Novolog Correction per scale ACHS Goal Range: Low 100 mg/dL - High 150 mg/dL Correction Factor: 10 mg/dL/unit * Prandial insulin: Per carb ratio of 1 unit per 4 grams CHO consumed Risk Factors for Insulin Resistance: * Infection * Diet * Baseline insulin resistance high per large outpatient doses of insulin - Assessment & Plan Assessment & Plan: ASSESSMENT: * 73yo T2DM female with near adequate outpatient control per recent A1c. Goal A1c likely less than 8% based on age/co-morbidities * Pt is maintained on SQ basal bolus insulin regimen as an outpatient with NPH + Humalog. Outpatient regimen is heavily weighted towards basal insulin (NPH) which is probably covering some prandial needs at breakfast and dinner since patient only takes prandial insulin at lunch. * Pt is currently receiving ~123 units of insulin per day for admission * 70-80 units of basal insulin with NPH * 40-50 units of prandial/correctional insulin with NPH * BSGs [phone] over the past 24hrs. * Changes needed to insulin regimen: * AM Fasting BSG = 192 mg/dl, this is above goal range therefore Basal insulin needs increased slightly. Pt takes higher basal insulin dose in the evening - may need to just increase PM dose to achieve goal AM fasting BSG * Total daily dose = 122 units but is 2x basal to prandial. Will attempt to more evenly re-distribute regimen 50%:50% basal:prandial to prevent hypo/hyperglycemia * Post-prandial BSGs are elevated/BSGs rise throughout the day therefore Tighten CR. No change to CF since basal insulin increased slightly. * Tight glycemic control crucial for wound healing. Goal is to maintain BSGs <200 mg/dl (ideally <150 mg/dl) * Also, recommend zinc, vitamin C and protein supplementation to promote wound healing in wound care patients * Zinc: 50 mg elemental zinc (e.g., 220 mg zinc sulfate) PO three times per day until wound healed. * Vitamin C: 500-3000mg/day depending on whether it causes soft stool, then back off * Protein: may consult dietary for protein supplement recommendation. Could consider boost glucose control supplement PLAN FOR INPATIENT GLYCEMIC CONTROL: * Basal insulin: increase slightly in PM * NPH 40 units SQ AM + 43 units SQ PM * Bolus insulin: tighten CR * NovoLog per scale ACHS or Q6hrs while NPO * Goal Range: Low 100 mg/dL - High 140 mg/dL * Correction Factor: 10 mg/dL/unit * Nutritional / Prandial insulin per carb ratio of 1 unit per 3 grams CHO consumed * Please note that the plan above was derived based on current level of insulin resistance and hospital stress. These recommendations are appropriate for inpatient admission only. Plan of care upon discharge will need to be reassessed to avoid potential outpatient hypo/hyperglycemia. Thank you.
--- NOTE | 2019-06-24 10:21 | Infectious Disease Progress Nt ---
Date of Service June 24, 2019 Assessment & Plan (1) Cellulitis of both lower extremities: suspect most changes ar chronic in nature. she will likely require course of abx, with h/o MRSA will continue with Dapto for now. wound care to eval. she appears to be more agreeable to chronic abx with recurrence. will follow. will likely need outpt f/u at wound center with ID as well. and likely chronic suppression, would suggest prolonged course of po doxy. Subjective pt tolerating abx, culture negative. afebrile. ultrasound with high grade stenosis. wbc 5.1, creat 1.1 Results & Data Vital Signs (Past 12 Hours) Vital Signs Temp Pulse Pulse Resp BP Pulse Ox 06/24/19 07:58 71 18 96 06/24/19 07:00 36.6 C 57 L 18 172/77 H 98 06/24/19 05:41 61 159/65 H 06/23/19 22:55 36.4 C L 61 18 154/54 H 92 Laboratory Results Microbiology 06/22/19 00:25 Urine,Clean Catch Urine Culture - Preliminary No growth - Less than 1,000 colonies/mL, Final report to follow. PG Care Time/CCT Total # of Minutes Spent Total Time Spent with Patient: Total time spent is greater than 50% in coordination of care (as documented) at patient's floor/unit and/or counseling patient:
--- NOTE | 2019-06-24 11:38 | Hospitalist Progress Note ---
Date of Service June 24, 2019 Assessment & Plan (1) Cellulitis of both lower extremities: - Cellulitis of bilat LE noted on admission - now significantly improving, close to baseline. - Also has right 2nd and 3rd toe edema with 3rd toe callous -- also improving. 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 - Continue Ceftriaxone and Daptomycin IV; MRSA swab was negative. Will likely convert to PO abx on 06/25/19. - Consulted ID, appreciate input. - Consulted wound care, appreciate input. Will need to follow up with wound care as outpatient. - Consulted Dr. Carnes from wound care; s/p evaluation of right third toe callous. (2) Diabetes mellitus with diabetic polyneuropathy: - Holding home Metformin and home insulin. - A1C was 8.1, previously 7.3. - Pharmacy consulted for glycemic management. (3) Atrial fibrillation: - Continue Diltiazem and Metoprolol as prescribed. - Continue Xarelto 15 mg daily. (4) Hypertension: - Continue CCB and beta markos as prescribed. (5) Chronic diastolic (congestive) heart failure: - Most recent TTE in Oct 2016 with EF 55-60%, moderate LVH and mildly reduced right ventricular systolic function. - Chronically requires 3L via NC at home -- on baseline oxygen. - Monitor daily weights and net I/Os. - Continue Bumex 2 mg PO BID - LE edema is significantly improved. - Continue beta markos as prescribed. (6) Chronic venous stasis: - Continue Bumex 2 mg PO BID. - Recommend outpatient follow up with wound clinic. (7) COPD (chronic obstructive pulmonary disease): - Continue Brovana, albuterol nebulizers, Flovent HFA. - No evidence of acute exacerbation. (8) Hyperlipidemia: - Continue statin as prescribed. (9) Hypothyroidism: - Continue Levothyroxine 50 mcg daily. - TSH was 3.03 in December 2018. (10) PAD (peripheral artery disease): - Arterial duplex showed high grade stenosis of bilat lower extremities. - Will consult Dr. Doss for evaluation -- has been evaluated by vascular in the past. - Continue statin as prescribed. (11) Morbid obesity: - BMI 54.8 -- encourage weight loss and exercise. (12) Electrolyte abnormality: - K level 3.4 - continue home KCl 10 mEq daily with additional 20 mEq PO. - Continue home Mag oxide 400 mg daily. (13) DVT prophylaxis: - Xarelto daily. Dispo: Discharge pending improvement in LE cellulitis, likely over next 24-48 hours. Will need close follow up with the wound clinic, ID and PCP. PT/OT evaluation ordered. Subjective Pt. is doing well overall -- redness and itching/burning of LE improved. Pt. reports swelling is significantly improved. Has dressing on bilat calves. Pt. has required 3L via NC during this admission -- on baseline requirements. Will continue IV abx at this time, convert to PO likely over next 24-48 hours. Vascular surgery consulted for high grade stenosis of bilat LE -- was evaluated in the past by vascular PA. Review of Systems Review of Systems: All systems reviewed & are unremarkable except as noted in HPI & below Constitutional: no fever, no chills, no fatigue, no weakness and no anorexia Respiratory: no cough, no dyspnea, no dyspnea on exertion and no wheezing Cardiovascular: + edema; no chest pain and no palpitations Gastrointestinal: no abdominal pain, no nausea and no constipation Genitourinary: no difficulty urinating Musculoskeletal: + swelling; no back pain and no joint pain Integumentary: + sores, + wounds, + erythema and + dry skin; no non-healing lesions and no pruritus Physical Exam Physical Exam: General: Resting comfortably HEENT: NC/AT; PERRLA with EOMI; Pepin conjunctiva, MMM. No erythema of posterior pharynx Neck: Supple and nontender Cardiac: RRR Lungs: CTA bilaterally Abdomen: Bowel normoactive X 4; Nontender to palpation Extremities: Warm. +1 bilat LE pitting edema. Neuro: No focal weakness Skin: Erythema of bilat calves improving, likely at baseline; right third dose with callous at distal tip, right 2nd and third toes are edematous but improving overall. Results & Data Vital Signs (Past 12 Hours) Vital Signs Temp Pulse Pulse Resp BP Pulse Ox 06/24/19 07:58 71 18 96 06/24/19 07:00 36.6 C 57 L 18 172/77 H 98 06/24/19 05:41 61 159/65 H Laboratory Results 06/24/19 06/24/19 06/24/19 Range/Units 08:13 05:41 05:41 WBC 5.10 (4.8-10.8) K/uL RBC 3.97 L (4.2-5.4) M/uL Hgb 11.5 L (12.0-16.0) g/dL Hct 35.0 L (37-47) % MCV 88.2 (80-100) fL MCH 29.0 (25-34) pg MCHC 32.9 (32-36) g/dL RDW Std Deviation 52.2 H (36.4-46.3) fL RDW Coeff of Davina 16.2 H (11.5-14.5) % Plt Count 153 (130-400) K/uL MPV 9.4 (7.4-10.4) fL Sodium 135 L (136-145) mmol/L Potassium 3.4 L (3.5-5.1) mmol/L Chloride 98 (98-107) mmol/L Carbon Dioxide 30 (21-32) mmol/L Anion Gap 7.0 (3-11) BUN 27 H (7-18) mg/dl Creatinine 1.19 (0.6-1.2) mg/dl Est Cr Clr Drug Dosing 54.8 ml/min Est GFR ( Amer) 52.1 Est GFR (Non-Af Amer) 44.9 BUN/Creatinine Ratio 22.7 H (10-20) Glucose 192 H (70-99) mg/dl POC Glucose 210 H (70-99) Calcium 8.8 (8.5-10.1) mg/dl Magnesium 1.9 (1.8-2.4) mg/dl 06/23/19 06/23/19 06/23/19 Range/Units 20:45 17:23 12:01 WBC (4.8-10.8) K/uL RBC (4.2-5.4) M/uL Hgb (12.0-16.0) g/dL Hct (37-47) % MCV (80-100) fL MCH (25-34) pg MCHC (32-36) g/dL RDW Std Deviation (36.4-46.3) fL RDW Coeff of Davina (11.5-14.5) % Plt Count (130-400) K/uL MPV (7.4-10.4) fL Sodium (136-145) mmol/L Potassium (3.5-5.1) mmol/L Chloride (98-107) mmol/L Carbon Dioxide (21-32) mmol/L Anion Gap (3-11) BUN (7-18) mg/dl Creatinine (0.6-1.2) mg/dl Est Cr Clr Drug Dosing ml/min Est GFR ( Amer) Est GFR (Non-Af Amer) BUN/Creatinine Ratio (10-20) Glucose (70-99) mg/dl POC Glucose 169 H 140 H 176 H (70-99) Calcium (8.5-10.1) mg/dl Magnesium (1.8-2.4) mg/dl PG Care Time/CCT Total # of Minutes Spent Total Time Spent with Patient: Total time spent is greater than 50% in coordination of care (as documented) at patient's floor/unit and/or counseling patient: (1) Diabetes mellitus with diabetic polyneuropathy 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
[2019-06-24] MEDS: MAGNESIUM OXIDE 400 MG TAB PO SCH (12:24)
--- NOTE | 2019-06-24 14:42 | Consultation ---
Date of Consultation June 24, 2019 Assessment & Plan (1) PAD (peripheral artery disease): Pt with asymptomatic mild/moderate PAD by US. Us reviewed by Dr Doss. No vascular surgical intervention recommended at this time. Do recommend local wound care and treatment of venous stasis dermatitis. Pt agreeable. Please call if needed. Patient was seen, examined, and chart reviewed. Agree with exam and treatment plan of the Vascular PA. History of Present Illness Reason for Consultation: PAD Attending Physician: Ba Walsh History of Present Illness 73 yo f with multiple medical problems, including HTN, hyperlipidemia, CKD, DMII, COPD, a fib, CHF, endometrial ca, hypothyroidism, admitted with BLE kodi lulitis, seen in consultation today for PAD. Pt was previously seen while inpt in 2017 and no intervention was recommended. Pt states she has had BLE edema and erythema chronically for many years. Pt states her legs were weeping significantly more than usual for her, so came to [facility] for eval. Admits pruritis to BLE where erythema is worst. Denies rest pain, claudication. Denies ESCALANTE, fever, chills, chest pain, SOB,a bd pain, N/V, other complaints. Arterial US demonstrates mild/moderate BLE arterial disease. Allergies Allergy/AdvReac Type Severity Reaction Status Date / Time Penicillins Allergy Intermediate HIVES Verified 06/21/19 22:09 mineral oil Allergy Unknown Unverified 06/21/19 22:09 metronidazole AdvReac Unknown NAUSEA Verified 06/21/19 22:09 ceresin [From Eucerin] AdvReac Redness of Verified 06/21/19 22:09 Skin emollient combination no.33 AdvReac Redness of Verified 06/21/19 22:09 [From Eucerin] Skin isopropyl myristate AdvReac Redness of Verified 06/21/19 22:09 [From Eucerin] Skin lanolin alcohols AdvReac Redness of Verified 06/21/19 22:09 [From Eucerin] Skin mineral oil [From Eucerin] AdvReac Redness of Verified 06/21/19 22:09 Skin soap [From Eucerin] AdvReac Redness of Verified 06/21/19 22:09 Skin water [From Eucerin] AdvReac Redness of Verified 06/21/19 22:09 Skin Home Medications Home Medications Medication Instructions Recorded Confirmed Type Brovana 15 mcg INHALATION AMPM 09/18/18 06/21/19 History Flovent HFA 1 puff INHALATION BID 09/18/18 06/21/19 History Xarelto 15 mg PO DAILY 09/18/18 06/21/19 History acetaminophen [Tylenol Extra 500 mg PO Q4H PRN 09/18/18 06/21/19 History Strength] albuterol sulfate 1 - 2 puff INHALATION Q4H PRN 09/18/18 06/21/19 History atorvastatin 40 mg PO DAILY 09/18/18 06/21/19 History bumetanide 2 mg PO BID 09/18/18 06/21/19 History cholecalciferol (vitamin D3) 2,000 units PO DAILY 09/18/18 06/21/19 History [Vitamin D3] magnesium oxide 400 mg PO DAILY@1200 09/18/18 06/21/19 History metoprolol succinate 150 mg PO QAM 09/18/18 06/21/19 History diltiazem HCl 240 mg PO QAM 10/06/18 06/21/19 History allopurinol 100 mg tablet 100 mg PO DAILY #30 tab 02/23/19 06/21/19 Rx potassium chloride ER 10 mEq 10 meq PO QAM #90 cap 03/30/19 06/21/19 Rx capsule,extended release Oxygen Home #1 ea 04/03/19 06/21/19 History hydrocortisone 2.5 % topical cream 1 appln TOPICAL DAILY PRN #1 gm 04/03/19 06/21/19 History hydrocortisone 2.5 % topical cream 1 appln SC BID PRN #30 gm 04/03/19 06/21/19 Rx with perineal applicator pen needle, diabetic 32 gauge x #50 ea 04/03/19 06/21/19 History 1/4" nystatin 100,000 unit/gram topical 1 appln TOP TID #60 gm 04/14/19 06/21/19 Rx powder albuterol sulfate 2.5 mg/3 mL 2.5 mg INHALATION .COMPLEX PRN ml 04/24/19 06/21/19 History (0.083 %) solution for nebulization alprazolam 0.5 mg tablet 0.5 mg PO QPM PRN #30 tab 04/24/19 06/21/19 History linezolid 600 mg tablet 600 mg PO BID tab 04/24/19 06/21/19 History triamcinolone acetonide 0.5 % 1 applic TOPICAL BID gm 04/24/19 06/21/19 History topical cream blood sugar diagnostic strips #50 ea 05/15/19 06/21/19 Rx levothyroxine 50 mcg tablet 50 mcg PO DAILY #90 tab 05/21/19 06/21/19 Rx white petrolatum 41 % topical 1 appln TOP 6XD #396 gm 06/03/19 06/21/19 Rx ointment insulin NPH and regular human 82 unit SUBCUT QAM 06/21/19 06/21/19 History [Humulin 70/30 U-100 KwikPen] insulin NPH and regular human 85 unit SUBCUT QPM 06/21/19 06/21/19 History [Novolin 70-30 FlexPen U-100] insulin lispro [Humalog KwikPen 5 unit SUBCUT DAILY@1200 06/21/19 06/21/19 History Insulin] metformin 1,000 mg PO QAM 06/21/19 06/21/19 History metformin 500 mg PO QPM 06/21/19 06/21/19 History doxycycline hyclate 100 mg PO BID 7 Days #14 cap 06/25/19 Rx Patient History Medical History Basal cell carcinoma, face Depression with anxiety Diabetic peripheral neuropathy Hirsutism Hyperlipidemia Hypertension Obstructive sleep apnea Acquired claw toe of right foot Acquired claw toe of left foot Diabetes mellitus with diabetic polyneuropathy CKD (chronic kidney disease) stage 3, GFR 30-59 ml/min COPD (chronic obstructive pulmonary disease) Atrial fibrillation Endometrial cancer (Resolved) Hypothyroidism Anxiety (Chronic) COPD (chronic obstructive pulmonary disease) (Chronic) Diabetes (Chronic) Acquired lymphedema (Inactive) Anxiety (Inactive) Atrial flutter (Inactive) CHF (congestive heart failure) (Inactive) Callus (Inactive) Malignant neoplasm of corpus uteri (Inactive) Neuropathic ulcer of toe of right foot (Inactive) Pleural effusion (Inactive) Sciatica (Inactive) Surgical History S/P hysterectomy (Chronic) S/P thoracentesis (Inactive) Hx of salpingo-oophorectomy, bilateral Family History Father Coronary heart disease Myocardial infarction Mother Alzheimer disease Social History Preferred Language: Portuguese Communication Ability: Effective Stereo Compiler Required: No Beliefs That Will Affect Care: None marital status: Current Living Situation: Spouse current occupational status: retired Feels Safe at Home: Yes Smoking Status: Never smoker Hx Alcohol Use: No Hx Substance Use: No Dental Care, Regularly: Yes Physical Activity Frequency: 1-2 Times per Week Sunscreen Use: No Review of Systems Review of Systems: All systems reviewed & are unremarkable except as noted in HPI & below Physical Exam Constitutional: WD/WN, vitals as above + morbidly obese, cooperative and comfortable; not in distress Eyes: PERRL, conjunctivae normal, anicteric sclerae ENMT: external ear and nose normal, oropharynx normal Neck: normal visual inspection and trachea midline Respiratory: normal respiratory effort; no respiratory distress Auscultation: lungs clear to auscultation bilaterally and + diminished lung sounds Cardiovascular: Rate/Rhythm: + irregularly irregular Vessels: posterior tibial pulses present, dorsalis pedis pulses present, brachial pulses present and radial pulses present; no carotid bruit and + abnormal peripheral pulses Extremities: normal capillary refill and + edema Gastrointestinal (Abdomen): normal bowel sounds, soft, nontender, no hepatosplenomegaly Musculoskeletal: no cyanosis or clubbing, extremities motor strength 5/5 Skin: + rash (erythematous to BLE, consistent with venous stasis), + ulcer and + wound (R 3rd toe hammer toe, with dry callus noted) Neurologic: moves all extremities and awake; no focal motor deficits and not confused Psychiatric: A+Ox3, euthymic affect Results & Data Vital Signs (Past 12 Hours) Vital Signs Temp Pulse Pulse Resp BP Pulse Ox 06/24/19 07:58 71 18 96 06/24/19 07:00 36.6 C 57 L 18 172/77 H 98 06/24/19 05:41 61 159/65 H
[2019-06-24] MEDS: cefTRIAXone SODIUM 2,000 MG in DEXTROSE 5% 50 ML IV SCH (22:34)
[2019-06-25] MEDS: DAPTOmycin 350 MG in SYRINGE 0 ML IV SCH (01:49)
[2019-06-25] MEDS: BUMETANIDE 1 MG TAB PO SCH (06:28)
[2019-06-25] MEDS: LEVOTHYROXINE SODIUM 50 MCG TABLET PO SCH (06:28)
[2019-06-25 06:31] LABS: BUN Creatinine Ratio 22.3 (10-20); Calcium 8.5 mg/dl (8.5-10.1); Creatinine Clr Calc Pharmacy 63.4 ml/min; Est GFR (Non-African American) 53.5; Potassium 3.5 mmol/L (3.5-5.1)
[2019-06-25] MEDS: TRIAMCINOLONE ACET 0.5% CR 15 GM TUBE TOP SCH (09:09)
[2019-06-25] MEDS: NYSTATIN POWDER 15GM BTL EXT SCH ×2 (09:10→13:10)
[2019-06-25] MEDS: INSULIN ASPART 100 UNITS/ML 3 ML PEN SC SCH ×2 (09:13→13:10)
[2019-06-25] MEDS: FLUTICASONE HFA 110MCG INHALER INH SCH (09:14)
[2019-06-25] MEDS: dilTIAZem HCL 240 MG CAPCR PO SCH (09:14)
[2019-06-25] MEDS: METOPROLOL SUCC 50MG EXT REL TAB PO SCH (09:15)
[2019-06-25] MEDS: RIVAROXABAN 15 MG TAB PO SCH (09:16)
[2019-06-25] MEDS: CHOLECALCIFEROL 1,000 UNITS TAB PO SCH (09:16)
[2019-06-25] MEDS: allopurinoL 100 MG TAB PO SCH (09:16)
[2019-06-25] MEDS: INSULIN HUMAN NPH SC SCH (09:17)
[2019-06-25] MEDS: POTASSIUM CHLORIDE 10 MEQ TABCR PO SCH (09:52)
--- NOTE | 2019-06-25 10:20 | Pharmacy Report ---
Pharmacy Glycemic Short Note 2 - Date of Service June 25, 2019 - Glycemic Short BSG Results (Last 24 hours): 06/24/19 06/24/19 06/24/19 12:06 17:00 20:59 Glucose POC Glucose 215 H 167 H 233 H 06/25/19 06/25/19 05:36 07:56 Glucose 144 H POC Glucose 175 H OUTPATIENT ANTIDIABETIC REGIMEN: * NPH 82 units SQ AM + NPH 85 units SQ PM * Humalog 5 units SQ w/ lunch * Metformin 1 gm qAM, 500 mg qPM * Total daily dose ~ 172 units/day The patient is currently receiving: * Basal insulin: NPH 40 units BID with meals (rec'd 43 units yesterday AM) * Correctional Insulin: Novolog Correction per scale ACHS Goal Range: Low 100 mg/dL - High 150 mg/dL Correction Factor: 10 mg/dL/unit * Prandial insulin: Per carb ratio of 1 unit per 3 grams CHO consumed Risk Factors for Insulin Resistance: * Infection * Diet * Baseline insulin resistance high per large outpatient doses of insulin - Assessment & Plan ASSESSMENT: 06/25 * Janelle received 151 units of insulin yesterday * 83 of basal * 68 of bolus * No changes to causes of insulin resistance * Fasting BSG improved today (144 mg/dL) - will continue with same basal dose since this was increased just 2 days ago * Postprandial BSGs all above goal yesterday. Will hold off on tightening CR further since this was tightened yesterday, yet BSGs were more controlled on the previous days with a looser CR. Appears that most bolus doses were administered late yesterday, causing artificially high pre-meal BSG values. * As of lunch today, BSGs remain high so will now tighten CR. Will not change until dinner since AM Novolog not given until 0915 so I want to prevent stacking from Novolog doses and NPH peaking. 06/24 * 73yo T2DM female with near adequate outpatient control per recent A1c. Goal A1c likely less than 8% based on age/co-morbidities * Pt is maintained on SQ basal bolus insulin regimen as an outpatient with NPH + Humalog. Outpatient regimen is heavily weighted towards basal insulin (NPH) which is probably covering some prandial needs at breakfast and dinner since patient only takes prandial insulin at lunch. * Pt is currently receiving ~123 units of insulin per day for admission * 70-80 units of basal insulin with NPH * 40-50 units of prandial/correctional insulin with NPH * BSGs [phone] over the past 24hrs. * Changes needed to insulin regimen: * AM Fasting BSG = 192 mg/dl, this is above goal range therefore Basal insulin needs increased slightly. Pt takes higher basal insulin dose in the evening - may need to just increase PM dose to achieve goal AM fasting BSG * Total daily dose = 122 units but is 2x basal to prandial. Will attempt to more evenly re-distribute regimen 50%:50% basal:prandial to prevent hypo/hyperglycemia * Post-prandial BSGs are elevated/BSGs rise throughout the day therefore Tighten CR. No change to CF since basal insulin increased slightly. * Tight glycemic control crucial for wound healing. Goal is to maintain BSGs <200 mg/dl (ideally <150 mg/dl) * Also, recommend zinc, vitamin C and protein supplementation to promote wound healing in wound care patients * Zinc: 50 mg elemental zinc (e.g., 220 mg zinc sulfate) PO three times per day until wound healed. * Vitamin C: 500-3000mg/day depending on whether it causes soft stool, then back off * Protein: may consult dietary for protein supplement recommendation. Could consider boost glucose control supplement PLAN FOR INPATIENT GLYCEMIC CONTROL: * Continue to hold outpatient oral diabetes medications * Basal insulin - no change * NPH 40 units SQ BID * Bolus insulin - tighten CR * NovoLog per scale ACHS or Q6hrs while NPO * Goal Range: Low 110 mg/dL - High 140 mg/dL * Correction Factor: 10 mg/dL/unit * Nutritional / Prandial insulin per carb ratio of 1 unit per 2.5 grams CHO consumed PLAN FOR DISCHARGE: * A1c = 8.1 % on 06/21/19, which is at/near goal Goal A1c < 8 % based on age and comorbidities; Less stringent A1C goals (such as less than 8%) may be appropriate for patients with a history of severe hypoglycemia, limited life expectancy, advanced microvascular or macrovascular complications, extensive comorbid conditions, or long-standing diabetes in whom the goal is difficult to achieve despite diabetes self-management education, appropriate glucose monitoring, and effective doses of multiple glucose-lowering agents including insulin. * Recommend to continue outpatient regimen on discharge
[2019-06-25] MEDS ORDERED: DOXYCYCLINE HYCLATE 100 MG CAP PO SCH (11:00)
[2019-06-25] MEDS: ARFORMOTEROL TART 15MCG/2ML VIAL INH SCH (11:17)
[2019-06-25] MEDS: MAGNESIUM OXIDE 400 MG TAB PO SCH (13:08)
--- NOTE | 2019-06-25 13:51 | Discharge Summary ---
Date of Service June 25, 2019 Admission HPI Per Admitting Provider The patient is a 73-year-old female with past medical history including diabetes mellitus, diabetic peripheral neuropathy, hyperlipidemia, hypertension, obstructive sleep apnea, CKD, COPD, chronic diastolic CHF, chronic venous stasis dermatitis and atrial fibrillation who presents to the emergency department with worsening bilateral lower extremity redness, swelling, discomfort and drainage. Admission Exam Per Admitting Provider The patient is awake, alert and oriented 3, normocephalic and atraumatic, sitting upright in chair, and in no acute distress. HEENT--PERRL, EOMI, mucous membranes and oropharynx normal. Neck--supple. No JVD. No bruits. Heart--normal S1 and S2. No murmurs, rubs or gallops. Lungs--clear bilaterally, no respiratory distress, no accessory muscle use. Abdomen--normal bowel sounds and soft. Nontender. Nondistended. Morbidly obese. Extremities/Dermatologic--bilaterally there are multiple vesicles, multiple areas of drainage, moderately severe erythema, and 2-3+ pitting edema. Neurologic--cranial nerves II through XII grossly intact. Rheumatologic--limited by body habitus Psychiatric--normal affect. Principal Diagnosis Cellulitis bilateral lower extremities Discharge Exam General: Resting comfortably HEENT: NC/AT; PERRLA with EOMI; [place] conjunctiva, MMM. No erythema of posterior pharynx Neck: Supple and nontender Cardiac: RRR Lungs: CTA bilaterally Abdomen: Bowel normoactive X 4; Nontender to palpation Extremities: Warm. +1 bilat LE pitting edema. Neuro: No focal weakness Skin: Erythema of bilat calves resolving, likely at baseline; right third dose with callous at distal tip. Right 2nd and 3rd toes with mild edema. Discharge Data Allergies Allergy/AdvReac Type Severity Reaction Status Date / Time Penicillins Allergy Intermediate HIVES Verified 06/27/19 18:06 mineral oil Allergy Unknown Unverified 06/27/19 18:06 metronidazole AdvReac Unknown NAUSEA Verified 06/27/19 18:06 ceresin [From Eucerin] AdvReac Redness of Verified 06/27/19 18:06 Skin emollient combination no.33 AdvReac Redness of Verified 06/27/19 18:06 [From Eucerin] Skin isopropyl myristate AdvReac Redness of Verified 06/27/19 18:06 [From Eucerin] Skin lanolin alcohols AdvReac Redness of Verified 06/27/19 18:06 [From Eucerin] Skin mineral oil [From Eucerin] AdvReac Redness of Verified 06/27/19 18:06 Skin soap [From Eucerin] AdvReac Redness of Verified 06/27/19 18:06 Skin water [From Eucerin] AdvReac Redness of Verified 06/27/19 18:06 Skin Consultations 06/21/19 23:21 ED Decision to Admit Stat 06/22/19 02:55 Consult Infectious Diseases Routine 06/22/19 14:05 Consult Wound Care Provider Routine 06/24/19 07:52 Consult Vascular Surgery Routine Ordered Studies 06/23/19 12:10 US arterial duplex LE BI Routine Hospital Course (1) Cellulitis of both lower extremities: Cellulitis of bilat LE noted on admission - now improved, close to baseline. Also has right 2nd and 3rd toe edema with 3rd toe callous -- also improving. 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 Received Ceftriaxone and Daptomycin IV as inpatient - will convert to Doxy PO at discharge. ID followed as inpatient, appreciate input. F/u wound clinic and with ID as outpatient. Consulted wound care, Dr. Carnes, as inpatient. No indication for debridement of right third toe callous. (2) Diabetes mellitus with diabetic polyneuropathy: Held home Metformin and home insulin. A1C was 8.1, previously 7.3. Pharmacy consulted for glycemic management. (3) Atrial fibrillation: Continued Diltiazem and Metoprolol as prescribed. Continued Xarelto 15 mg daily. (4) Hypertension: Continued CCB and beta markos as prescribed. (5) Chronic diastolic (congestive) heart failure: Most recent TTE in Oct 2016 with EF 55-60%, moderate LVH and mildly reduced right ventricular systolic function. Chronically requires 3L via NC at home -- on baseline oxygen. Continued Bumex 2 mg PO BID - LE edema is improved. Continued beta markos as prescribed. (6) Chronic venous stasis: Continued Bumex 2 mg PO BID. Recommend outpatient follow up with wound clinic. (7) COPD (chronic obstructive pulmonary disease): Continued Brovana, albuterol nebulizers, Flovent HFA. No evidence of acute exacerbation. (8) Hyperlipidemia: Continued statin as prescribed. (9) Hypothyroidism: Continued Levothyroxine 50 mcg daily. TSH was 3.03 in December 2018. (10) PAD (peripheral artery disease): Arterial duplex showed high grade stenosis of bilat lower extremities. Consulted Dr. Doss, no intervention indicated. Continued statin as prescribed. (11) Morbid obesity: BMI 54.8 -- encourage weight loss and exercise. (12) Electrolyte abnormality: Continued home KCl 10 mEq daily. Continued home Mag oxide 400 mg daily. (13) DVT prophylaxis: Xarelto daily. Discharged to home on 06/25/19. Will f/u with wound clinic, PCP and ID. Total Time Total Time Spent Total Time Spent (In Minutes): >30 minutes Discharge Plan Discharge Items Patient Disposition: Home - Self-Care Reason For Visit: BILAT LE CELLULITIS, FAILURE OF OUTPATIENT THERAPY Discharge Diagnosis: Bilateral Lower Extremity Cellulitis Condition on Discharge: Good Activity: As commented below Exercise/Sports: Gradually increase as tolerated Non-emergency contact: Primary Care Provider Call non-emergency contact if: you have any medication questions, your symptoms worsen, your pain is not controlled, your pain is worsening, your pain is unusual for you, your pain is concerning for you, you have a fever, your wound has increased redness and your wound has increased drainage Follow-up/Referrals: [facility] – [place] Wound Care [Provider Group] - 07/01/19 10:00 am (Please, follow up at [facility] with Dr. Can on SaturdayJuly 01 at 10:00 am. *The clinic is located at [address] [place] [address] in [place]. *If you have any questions, call the clinic at [phone]. ) Maxine Roberts MD [Primary Care Provider] - 07/02/19 9:30 am (Please, follow up at [facility] with Dr. Roberts's associate, Precious GARCIA, on July 02 at 9:30 am. *If you need to change this appointment, call the office at [phone]) Diet: Carb Consistent or DM2 Addtl Attending Provider Instructions: 1. Bilateral Lower Extremity Cellulitis * Please take Doxycycline 100 mg twice daily for treatment of skin infection. * You will need to follow up with the wound clinic on 07/01/19; ID will also ev aluate you at the wound clinic. * Continue to elevate lower extremities as tolerated. * Continue wound care as needed at home. 2. Continue to wear 2-3L via nasal cannula at all times. 3. Please follow up with PCP as scheduled on 07/02/19. Pending Studies at Discharge: No Stand-Alone Forms: My [facility] Medications and DC Order Prescriptions: Continued potassium chloride 10 mEq capsule, extended release 10 meq PO QAM Qty: 90 RF: 1 alprazolam 0.5 mg tablet 0.5 mg PO QPM PRN (Reason: anxiety) Qty: 30 RF: 0 albuterol sulfate 2.5 mg /3 mL (0.083 %) solution for nebulization 2.5 mg inhalation .COMPLEX PRN (Reason: shortness of breath or wheezing) RF: 0 diltiazem HCl 240 mg capsule,extended release 24hr 240 mg PO QAM RF: 0 metformin 500 mg Tablet 500 mg PO HS RF: 0 metformin 500 mg tablet 1,000 mg PO QAM RF: 0 insulin lispro [Humalog KwikPen Insulin] 100 unit/mL insulin pen 5 unit subcut DAILY@1200 RF: 0 atorvastatin 40 mg tablet 40 mg PO DAILY@1800 RF: 0 bumetanide 2 mg tablet 2 mg PO BID RF: 0 metoprolol succinate 100 mg tablet extended release 24 hr 150 mg PO QAM RF: 0 acetaminophen [Tylenol Extra Strength] 500 mg Tablet 500 mg PO Q4H PRN (Reason: Pain) RF: 0 albuterol sulfate 90 mcg/actuation HFA aerosol inhaler 1 - 2 puff Inhalation Q4H PRN (Reason: Shortness Of Breath Or Wheezing) RF: 0 Flovent HFA 110 mcg/actuation Hfa Aerosol Inhaler 1 puff INHALATION BID RF: 0 Brovana 15 mcg/2 mL Solution For Nebulization 15 mcg INHALATION AMPM RF: 0 cholecalciferol (vitamin D3) [Vitamin D3] 2,000 unit Tablet 2,000 units PO DAILY@1200 RF: 0 Xarelto 15 mg Tablet 15 mg PO DAILY@1800 RF: 0 magnesium oxide 400 mg magnesium Tablet 400 mg PO DAILY@1200 RF: 0 Discontinued linezolid 600 mg tablet 600 mg PO BID RF: 0 No Action OneTouch Ultra Blue Test Strip strip .ROUTE .MEDSUPPLY Qty: 50 RF: 3 pen needle, diabetic [BD Ultra-Fine Micro Pen Needle] 32 gauge x 1/4" needle .ROUTE .MEDSUPPLY Qty: 50 RF: 0 Oxygen Home Liters Per Minute .ROUTE .MEDSUPPLY Qty: 1 RF: 0 Humulin 70/30 U-100 KwikPen 100 unit/mL (70-30) insulin pen 82 unit subcut QAM RF: 0 Humulin 70/30 U-100 KwikPen 100 unit/mL (70-30) Insulin Pen 85 unit SUBCUT HS RF: 0 allopurinol 100 mg tablet 100 mg PO DAILY@1800 RF: 0 levothyroxine 50 mcg tablet 50 mcg PO QAM RF: 0 nystatin 100,000 unit/gram powder 1 appln TOP DAILY RF: 0 triamcinolone acetonide 0.5 % cream 1 applic topical BID PRN (Reason: itch) Qty: 0 RF: 0 Anti-Itch(diphenhyd) with Zinc 2-0.1 % Cream 1 applic EXT Q6H PRN (Reason: itch) Qty: 30 RF: 0 triamcinolone acetonide 0.1 % lotion 1 appln TOP DAILY PRN (Reason: itch) Qty: 60 RF: 0 hydroxyzine HCl 10 mg tablet 10 mg PO TID PRN (Reason: itching) Qty: 20 RF: 0 Discharge Orders: Discharge Order (Routine); Ordered 06/25/19 Ordered By: Ba Garvey/Other Patient Handouts: DVT Prevent Admission Data Admit Date/Time: 06/21/19 23:34 Attending Provider: Ba Walsh Admit Provider: Deven Mak Primary Care Provider: Maxine Roberts Other Providers: Alina Can ; Griselda Patel ; Lee Carnes ; Desiree Graham ; Karsten Doss Other Interventions: Discharge Summary Assessment (RN) Last Done: 06/25/19 14:13 DC Date/Time DO NOT enter until pt leaves facility: 06/25/19 16:02 Supervising Physician Co-Signing Physician Notes During my face to face encounter, I interviewed patient and performed a physical examination. I answered all of the patients questions and concerns. I discussed discharge plan with patient and APC. I reviewed above note and agree with it. Patient will be discharged on PO doxycycline after IV antibiotics were given during hospital stay for the patient's cellulitis as stated above.
== END 2019-06-25 16:02 | disposition home or self-care (01) | DRG 603 ==
LOC: ED 21:52 → SUATTDRO 23:34 → 3N 23:34
DX: E11.51 Type 2 diabetes mellitus with diabetic peripheral angiopathy without gangrene; I13.0 Hypertensive heart and chronic kidney disease with heart failure and stage 1 through stage 4 chronic kidney disease, or unspecified chronic kidney disease; Z91.048 Other nonmedicinal substance allergy status; J44.9 Chronic obstructive pulmonary disease, unspecified; Z79.01 Long term (current) use of anticoagulants; E03.9 Hypothyroidism, unspecified; Z79.4 Long term (current) use of insulin; E66.01 Morbid (severe) obesity due to excess calories; I87.8 Other specified disorders of veins; Z86.14 Personal history of Methicillin resistant Staphylococcus aureus infection; I50.32 Chronic diastolic (congestive) heart failure; M20.5X1 Other deformities of toe(s) (acquired), right foot; L03.115 Cellulitis of right lower limb; Z88.0 Allergy status to penicillin; Z86.19 Personal history of other infectious and parasitic diseases; Z88.1 Allergy status to other antibiotic agents; N18.3 Chronic kidney disease, stage 3 (moderate); Z79.51 Long term (current) use of inhaled steroids; E78.5 Hyperlipidemia, unspecified; L03.116 Cellulitis of left lower limb; E11.42 Type 2 diabetes mellitus with diabetic polyneuropathy; E87.6 Hypokalemia; I48.91 Unspecified atrial fibrillation; Z79.899 Other long term (current) drug therapy; Z68.43 Body mass index [BMI] 50.0-59.9, adult

== ENCOUNTER 2019-06-27 16:26 | Inpatient (IN) ==
[2019-06-27] MEDS ORDERED: cefTRIAXone SODIUM 2,000 MG/70 ML BAG IV STA (16:36)
[2019-06-27 17:12] LABS: Basophils # (auto) 0.05 K/uL (0-0.2); Basophils % (auto) 0.8 %; Eosinophils # (auto) 0.13 K/uL (0-0.5); Eosinophils % (auto) 2.1 %; Hematocrit (blood only) 37.9 % (37-47); Hemoglobin 12.8 g/dL (12.0-16.0); Immature Granulocytes # (auto) 0.01 K/uL (0.00-0.02); Immature Granulocytes % (auto) 0.2 %; Lymphocytes % (auto) 22.7 %; Mean Corpuscular Hemoglobin 29.8 pg (25-34); Mean Corpuscular Hgb Conc 33.8 g/dL (32-36); Mean Corpuscular Volume 88.3 fL (80-100); Mean Platelet Volume 9.2 fL (7.4-10.4); Monocytes # (auto) 0.48 K/uL (0.11-0.59); Monocytes % (auto) 7.8 %; Neutrophils # (auto) 4.11 K/uL (1.4-6.5); Neutrophils % (auto) 66.4 %; Platelet Count 209 K/uL (130-400); RDW Coefficient of Variation 16.3 % (11.5-14.5); RDW Standard Deviation 52.3 fL (36.4-46.3); Red Blood Count 4.29 M/uL (4.2-5.4); White Blood Count 6.18 K/uL (4.8-10.8)
--- NOTE | 2019-06-27 17:19 | Emergency Department Note ---
Entered by Becky Andersen acting as a scribe for yRan Toth MD History of Present Illness General Chief complaint: Edema To Extremity Stated complaint: EDEMA Time Seen by Provider: 06/27/19 16:29 Source: patient Limitations: no limitations History of Present Illness Onset (ago): hour(s) (today) Location: lower extremity (bilateral) Severity: similar to prior episodes Pain Consistency: + other (worsening) Current Pain Intensity: 0 Quality: + other (edema and draining) Relieved By: + none Associated symptoms: + denies other symptoms (pain) and + other (redness and soreness in the toes on the RLE); no fever/chills The patient is a 73 year old female who presents to the Emergency Room with complaints of persistent edema and draining of the lower extremities that worsened today. She reports that she was in the ED last week, admitted to the hospital, and discharged two days ago with cellulitis and venous stasis. The patient notes that she was seen by wound care a few days ago. The patient states that her wounds looked better yesterday, but they are worse now. She complains of redness and soreness in the toes on her RLE, noting that it worsened today. The patient notes that her legs are "seeping" as much as they were when she was first admitted to the hospital. She denies any pain in the lower extremities. The patient denies any fever. The patient notes that she has been on doxycycline for the past 2 days. Home Medications Home Medications Medication Instructions Recorded Confirmed Type Brovana 15 mcg INHALATION AMPM 09/18/18 06/27/19 History Flovent HFA 1 puff INHALATION BID 09/18/18 06/27/19 History Xarelto 15 mg PO DAILY@1800 09/18/18 06/27/19 History acetaminophen [Tylenol Extra 500 mg PO Q4H PRN 09/18/18 06/27/19 History Strength] albuterol sulfate 1 - 2 puff INHALATION Q4H PRN 09/18/18 06/27/19 History atorvastatin 40 mg PO DAILY@1800 09/18/18 06/27/19 History bumetanide 2 mg PO BID 09/18/18 06/27/19 History cholecalciferol (vitamin D3) 2,000 units PO DAILY@1200 09/18/18 06/27/19 History [Vitamin D3] magnesium oxide 400 mg PO DAILY@1200 09/18/18 06/27/19 History metoprolol succinate 150 mg PO QAM 09/18/18 06/27/19 History diltiazem HCl 240 mg PO QAM 10/06/18 06/27/19 History potassium chloride ER 10 mEq 10 meq PO QAM #90 cap 03/30/19 06/27/19 Rx capsule,extended release Oxygen Home #1 ea 04/03/19 06/27/19 History pen needle, diabetic 32 gauge x #50 ea 04/03/19 06/27/19 History 1/4" albuterol sulfate 2.5 mg/3 mL 2.5 mg INHALATION .COMPLEX PRN ml 04/24/19 06/27/19 History (0.083 %) solution for nebulization alprazolam 0.5 mg tablet 0.5 mg PO QPM PRN #30 tab 04/24/19 06/27/19 History triamcinolone acetonide 0.5 % 1 applic TOPICAL BID gm 04/24/19 06/27/19 History topical cream blood sugar diagnostic strips #50 ea 05/15/19 06/27/19 Rx insulin lispro [Humalog KwikPen 5 unit SUBCUT DAILY@1200 06/21/19 06/27/19 History Insulin] metformin 1,000 mg PO QAM 06/21/19 06/27/19 History metformin 500 mg PO HS 06/21/19 06/27/19 History doxycycline hyclate 100 mg PO BID 7 Days #14 cap 06/25/19 06/27/19 Rx allopurinol 100 mg PO DAILY@1800 06/27/19 06/27/19 History insulin NPH and regular human 82 unit SUBCUT QAM 06/27/19 06/27/19 History [Humulin 70/30 U-100 KwikPen] insulin NPH and regular human 85 unit SUBCUT HS 06/27/19 06/27/19 History [Humulin 70/30 U-100 KwikPen] levothyroxine 50 mcg PO QAM 06/27/19 06/27/19 History nystatin 1 appln TOP DAILY 06/27/19 06/27/19 History Allergies Allergy/AdvReac Type Severity Reaction Status Date / Time Penicillins Allergy Intermediate HIVES Verified 06/27/19 18:06 mineral oil Allergy Unknown Unverified 06/27/19 18:06 metronidazole AdvReac Unknown NAUSEA Verified 06/27/19 18:06 ceresin [From Eucerin] AdvReac Redness of Verified 06/27/19 18:06 Skin emollient combination no.33 AdvReac Redness of Verified 06/27/19 18:06 [From Eucerin] Skin isopropyl myristate AdvReac Redness of Verified 06/27/19 18:06 [From Eucerin] Skin lanolin alcohols AdvReac Redness of Verified 06/27/19 18:06 [From Eucerin] Skin mineral oil [From Eucerin] AdvReac Redness of Verified 06/27/19 18:06 Skin soap [From Eucerin] AdvReac Redness of Verified 06/27/19 18:06 Skin water [From Eucerin] AdvReac Redness of Verified 06/27/19 18:06 Skin Past Med/Surg History Medical History Basal cell carcinoma, face Depression with anxiety Diabetic peripheral neuropathy Hirsutism Hyperlipidemia Hypertension Obstructive sleep apnea Acquired claw toe of right foot Acquired claw toe of left foot Diabetes mellitus with diabetic polyneuropathy CKD (chronic kidney disease) stage 3, GFR 30-59 ml/min COPD (chronic obstructive pulmonary disease) Atrial fibrillation Endometrial cancer (Resolved) Hypothyroidism Anxiety (Chronic) COPD (chronic obstructive pulmonary disease) (Chronic) Diabetes (Chronic) Acquired lymphedema (Inactive) Anxiety (Inactive) Atrial flutter (Inactive) CHF (congestive heart failure) (Inactive) Callus (Inactive) Malignant neoplasm of corpus uteri (Inactive) Neuropathic ulcer of toe of right foot (Inactive) Pleural effusion (Inactive) Sciatica (Inactive) Surgical History S/P hysterectomy (Chronic) S/P thoracentesis (Inactive) Hx of salpingo-oophorectomy, bilateral Family History Father Coronary heart disease Myocardial infarction Mother Alzheimer disease Social History Preferred Language: Korean Communication Ability: Effective 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 and A total of 10 systems reviewed and were otherwise negative Physical Exam Vital Signs Vital Signs - 24 hr 06/27/19 16:37 06/27/19 17:00 06/27/19 17:08 Temperature 36.8 C Temperature Source Oral Sepsis Recent Fever Within 48 Hours No Sepsis Action Taken by Nursing No Action Required Pulse Rate 68 65 67 Pulse Rate from SpO2 Sensor 65 66 Respiratory Rate 22 18 17 Respiratory Effort / Characteristics Non-Labored Spontaneous Respiratory Depth Normal Respiratory Pattern Regular Blood Pressure 180/80 H 178/76 H Blood Pressure Mean 113 110 Pulse Oximetry 98 97 97 Oxygen Delivery Method Room Air 06/27/19 17:30 06/27/19 17:31 06/27/19 18:00 Temperature Temperature Source Sepsis Recent Fever Within 48 Hours Sepsis Action Taken by Nursing Pulse Rate 68 65 65 Pulse Rate from SpO2 Sensor 65 65 Respiratory Rate 20 24 22 Respiratory Effort / Characteristics Respiratory Depth Respiratory Pattern Blood Pressure 152/56 H Blood Pressure Mean 88 Pulse Oximetry 98 97 Oxygen Delivery Method 06/27/19 18:01 06/27/19 18:30 Temperature Temperature Source Sepsis Recent Fever Within 48 Hours Sepsis Action Taken by Nursing Pulse Rate 65 66 Pulse Rate from SpO2 Sensor 66 66 Respiratory Rate 22 24 Respiratory Effort / Characteristics Respiratory Depth Respiratory Pattern Blood Pressure 169/66 H 167/88 H Blood Pressure Mean 100 114 Pulse Oximetry 97 95 Oxygen Delivery Method GENERAL: Patient is in no acute distress. HEENT: No acute trauma, normocephalic atraumatic, mucous membranes moist, no nasal congestion, no scleral icterus. NECK: No stridor, no adenopathy, no meningismus, trachea is midline. LUNGS: Clear to auscultation bilaterally, no wheeze, no rhonchi, breath sounds equal. HEART: Without murmurs gallops or rubs, regular rate and rhythm. ABDOMEN: Soft, nontender, bowel sounds positive, no hernias, no peritonitis. EXTREMITIES: Marked bilateral pedal edema with chronic skin change and clear seepage from both legs. Erythema to the second and third toes on the right and there is a blister on the underside of the third toe. NEUROLOGIC: Oriented x 3, no acute motor or sensory deficits, no focal weakness. SKIN: No rash, no jaundice, no diaphoresis. Course 1631: The patient was evaluated in room C10. A complete history and physical exam was performed. 1820: I updated the patient on her results. I suggested admission, and she was in agreement with the plan. 1837: I spoke with Dr. Marlin Villegas, [facility] hospitalist, about the patient's case. She will further evaluate the patient. Consultations Consultation #1: I spoke with Dr. Marlin Villegas, [facility] hospitalist, about the patient's case. She will further evaluate the patient. Time: 18:37 Administered Medications Discontinued Medications Ceftriaxone Sodium (Rocephin) 2,000 mg in 70 mls @ 140 mls/hr IV NOW STA Stop: 06/27/19 17:05 Last Infusion: 06/27/19 17:52 Dose: 0 mls/hr Documented by: [id number] Admin: 06/27/19 17:21 Dose: 140 mls/hr Documented by: [id number] Daptomycin 500 mg/ Syringe 10 mls @ 5 mls/min IV NOW ONE; Protocol Stop: 06/27/19 17:59 Last Admin: 06/27/19 18:44 Dose: 5 mls/min Documented by: [id number] Medical Decision Making Differential Diagnosis The differential diagnosis includes: cellulitis, osteomyelitis, failed outpatient treatment, fluid overload, electrolyte imbalance, and renal failure. Medical Records Attestation: I reviewed the patient's medical records. Home Medications Current Medication List: was personally reviewed by me Laboratory Data Attestation: I reviewed the patient's lab results. Result diagrams: 06/27/19 16:57 06/27/19 16:57 Lab Results 06/27/19 06/27/19 06/27/19 Range/Units 16:57 16:57 16:57 WBC 6.18 (4.8-10.8) K/uL RBC 4.29 (4.2-5.4) M/uL Hgb 12.8 (12.0-16.0) g/dL Hct 37.9 (37-47) % MCV 88.3 (80-100) fL MCH 29.8 (25-34) pg MCHC 33.8 (32-36) g/dL RDW Std Deviation 52.3 H (36.4-46.3) fL RDW Coeff of Davina 16.3 H (11.5-14.5) % Plt Count 209 (130-400) K/uL MPV 9.2 (7.4-10.4) fL Immature Gran % (Auto) 0.2 % Neut % (Auto) 66.4 % Lymph % (Auto) 22.7 % Mcpherson % (Auto) 7.8 % Eos % (Auto) 2.1 % Baso % (Auto) 0.8 % Immature Gran # (Auto) 0.01 (0.00-0.02) K/uL Neut # (Auto) 4.11 (1.4-6.5) K/uL Lymph # (Auto) 1.40 (1.2-3.4) K/uL Mcpherson # (Auto) 0.48 (0.11-0.59) K/uL Eos # (Auto) 0.13 (0-0.5) K/uL Baso # (Auto) 0.05 (0-0.2) K/uL ESR > 90 H (0-21) mm/hr Sodium 137 (136-145) mmol/L Potassium 3.9 (3.5-5.1) mmol/L Chloride 100 (98-107) mmol/L Carbon Dioxide 31 (21-32) mmol/L Anion Gap 6.0 (3-11) BUN 25 H (7-18) mg/dl Creatinine 1.09 (0.6-1.2) mg/dl Est Cr Clr Drug Dosing 56.4 ml/min Est GFR ( Amer) 57.9 Est GFR (Non-Af Amer) 50.0 BUN/Creatinine Ratio 23.2 H (10-20) Glucose 106 H (70-99) mg/dl Lactate (0.4-2.0) mmol/L Calcium 8.7 (8.5-10.1) mg/dl Magnesium 1.8 (1.8-2.4) mg/dl Total Bilirubin 0.6 (0.2-1) mg/dl AST 40 H (15-37) U/L ALT 66 (12-78) U/L Alkaline Phosphatase 156 H (45-117) U/L C-Reactive Protein 0.48 H (0-0.29) mg/dl Total Protein 7.8 (6.4-8.2) gm/dl Albumin 3.5 (3.4-5.0) gm/dl Globulin 4.3 H (2.5-4.0) gm/dl Albumin/Globulin Ratio 0.8 L (0.9-2) Procalcitonin (0-0.5) ng/ml 06/27/19 06/27/19 Range/Units 16:57 16:57 WBC (4.8-10.8) K/uL RBC (4.2-5.4) M/uL Hgb (12.0-16.0) g/dL Hct (37-47) % MCV (80-100) fL MCH (25-34) pg MCHC (32-36) g/dL RDW Std Deviation (36.4-46.3) fL RDW Coeff of Davina (11.5-14.5) % Plt Count (130-400) K/uL MPV (7.4-10.4) fL Immature Gran % (Auto) % Neut % (Auto) % Lymph % (Auto) % Mcpherson % (Auto) % Eos % (Auto) % Baso % (Auto) % Immature Gran # (Auto) (0.00-0.02) K/uL Neut # (Auto) (1.4-6.5) K/uL Lymph # (Auto) (1.2-3.4) K/uL Mcpherson # (Auto) (0.11-0.59) K/uL Eos # (Auto) (0-0.5) K/uL Baso # (Auto) (0-0.2) K/uL ESR (0-21) mm/hr Sodium (136-145) mmol/L Potassium (3.5-5.1) mmol/L Chloride (98-107) mmol/L Carbon Dioxide (21-32) mmol/L Anion Gap (3-11) BUN (7-18) mg/dl Creatinine (0.6-1.2) mg/dl Est Cr Clr Drug Dosing ml/min Est GFR ( Amer) Est GFR (Non-Af Amer) BUN/Creatinine Ratio (10-20) Glucose (70-99) mg/dl Lactate 2.1 H* (0.4-2.0) mmol/L Calcium (8.5-10.1) mg/dl Magnesium (1.8-2.4) mg/dl Total Bilirubin (0.2-1) mg/dl AST (15-37) U/L ALT (12-78) U/L Alkaline Phosphatase (45-117) U/L C-Reactive Protein (0-0.29) mg/dl Total Protein (6.4-8.2) gm/dl Albumin (3.4-5.0) gm/dl Globulin (2.5-4.0) gm/dl Albumin/Globulin Ratio (0.9-2) Procalcitonin < 0.05 (0-0.5) ng/ml Imaging Data Radiologist's Impression: Radiology results as stated below per my review and the radiologist's interpretation: CT foot RT wo con HISTORY: 73 years-old Female poss osteo chronic right foot pain and swelling with redness COMPARISON: MRI of the right foot 01/09/2019, right toe radiographs 01/01/2019 TECHNIQUE: Multiple axial CT images of the right foot were obtained without the use of IV contrast. A dose lowering technique was used consistent with the principals of ALARA. FINDINGS: Moderate subcutaneous edema with moderate to extensive muscular atrophy. Arterial calcifications are noted. Tendons and ligaments are not well evaluated by CT. The imaged ligaments and tendons appear grossly unremarkable. Thickening of the distal Achilles tendon suggests chronic tendinosis. No drainable fluid collection. Demineralized appearance of the bones. Large plantar and Achilles enthesophyte of the calcaneus. Mild tibiotalar with moderate hindfoot, midfoot and forefoot degenerative change. There is no acute fracture or subluxation identified. Midfoot alignment appears satisfactory. Moderate degenerative changes about the first MTP joint. There is extension of the metatarsal-phalangeal joints with flexion of the interphalangeal joints which limits the study. No definite bony erosive changes identified to suggest acute osteomyelitis. IMPRESSION: 1. No acute fracture, dislocation or definite bony erosion to suggest acute osteomyelitis. 2. Demineralized appearance of the bones with multifocal degenerative changes as above. 3. Nonspecific diffuse moderate subcutaneous edema. Differential considerations would include cellulitis, venous stasis or lymphedema. No drainable fluid collection. 4. Peripheral arterial calcifications. The above report was generated using voice recognition software. It may contain grammatical, syntax or spelling errors. Electronically signed by: Chase Elliott M.D. 06/27/2019 6:10 PM Dictated: 06/27/191802 Transcribed: 06/27/191802 Blood Pressure Blood Pressure Findings: Elevated blood pressure Blood Pressure Disposition: further management by hospitalist MDM Narrative There is no leukocytosis or concerning anemia. No significant electrolyte abnormality or kidney failure. Lactic acid level was slightly elevated at 2.1, this could be consistent with infection. There were some subtle liver enzyme elevations. C-reactive protein and sed rate were quite elevated consistent with infection/inflammation. Procalcitonin level was normal. Right foot CT scan does not show any obvious osteomyelitis. Cellulitis was suspected. The patient was given IV ceftriaxone, she received IV daptomycin. The patient presents with worsening cellulitis since discharge 2 days ago. She had been on daptomycin while in the hospital and was doing well. I did restart this medication here in the ED. I do think a hospital stay is warranted. She has failed outpatient treatment. I did speak with case management. The on-call hospitalist has been consulted. The patient is aware of all her findings. Impression & Plan Cellulitis of right lower leg, Pedal edema, Failure of outpatient treatment Discharge Plan Visit Data Chief Complaint: Edema To Extremity Stated Complaint: EDEMA ED Provider: Ryan Toth Discharge Problem: Cellulitis of right lower leg, Pedal edema, Failure of outpatient treatment Patient Disposition: Being Evaluated by Hospitalist Forms Stand Alone Forms: My [facility] Prescriptions Prescriptions: No Action potassium chloride 10 mEq capsule, extended release 10 meq PO QAM Qty: 90 RF: 1 OneTouch Ultra Blue Test Strip strip .ROUTE .MEDSUPPLY Qty: 50 RF: 3 pen needle, diabetic [BD Ultra-Fine Micro Pen Needle] 32 gauge x 1/4" needle .ROUTE .MEDSUPPLY Qty: 50 RF: 0 Oxygen Home Liters Per Minute .ROUTE .MEDSUPPLY Qty: 1 RF: 0 triamcinolone acetonide 0.5 % cream 1 applic topical BID RF: 0 alprazolam 0.5 mg tablet 0.5 mg PO QPM PRN (Reason: anxiety) Qty: 30 RF: 0 albuterol sulfate 2.5 mg /3 mL (0.083 %) solution for nebulization 2.5 mg inhalation .COMPLEX PRN (Reason: shortness of breath or wheezing) RF: 0 diltiazem HCl 240 mg capsule,extended release 24hr 240 mg PO QAM RF: 0 metformin 500 mg Tablet 500 mg PO HS RF: 0 metformin 500 mg tablet 1,000 mg PO QAM RF: 0 insulin lispro [Humalog KwikPen Insulin] 100 unit/mL insulin pen 5 unit subcut DAILY@1200 RF: 0 doxycycline hyclate 100 mg capsule 100 mg PO BID 7 Days Qty: 14 RF: 0 atorvastatin 40 mg tablet 40 mg PO DAILY@1800 RF: 0 bumetanide 2 mg tablet 2 mg PO BID RF: 0 metoprolol succinate 100 mg tablet extended release 24 hr 150 mg PO QAM RF: 0 acetaminophen [Tylenol Extra Strength] 500 mg Tablet 500 mg PO Q4H PRN (Reason: Pain) RF: 0 albuterol sulfate 90 mcg/actuation HFA aerosol inhaler 1 - 2 puff Inhalation Q4H PRN (Reason: Shortness Of Breath Or Wheezing) RF: 0 Flovent HFA 110 mcg/actuation Hfa Aerosol Inhaler 1 puff INHALATION BID RF: 0 Brovana 15 mcg/2 mL Solution For Nebulization 15 mcg INHALATION AMPM RF: 0 cholecalciferol (vitamin D3) [Vitamin D3] 2,000 unit Tablet 2,000 units PO DAILY@1200 RF: 0 Xarelto 15 mg Tablet 15 mg PO DAILY@1800 RF: 0 magnesium oxide 400 mg magnesium Tablet 400 mg PO DAILY@1200 RF: 0 Humulin 70/30 U-100 KwikPen 100 unit/mL (70-30) insulin pen 82 unit subcut QAM RF: 0 Humulin 70/30 U-100 KwikPen 100 unit/mL (70-30) Insulin Pen 85 unit SUBCUT HS RF: 0 allopurinol 100 mg tablet 100 mg PO DAILY@1800 RF: 0 levothyroxine 50 mcg tablet 50 mcg PO QAM RF: 0 nystatin 100,000 unit/gram powder 1 appln TOP DAILY RF: 0 Referrals Referrals: Maxine Roberts MD [Primary Care Provider] - The scribe's documentation has been prepared under my direction and personally reviewed by me in its entirety. I confirm that the note above accurately reflects all work, treatment, procedures, and medical decision making performed by me.
[2019-06-27 17:32] LABS: Albumin Level 3.5 gm/dl (3.4-5.0); BUN Creatinine Ratio 23.2 (10-20); Calcium 8.7 mg/dl (8.5-10.1); Creatinine Clr Calc Pharmacy 56.4 ml/min; Est GFR (African American) 57.9; Magnesium 1.8 mg/dl (1.8-2.4); Potassium 3.9 mmol/L (3.5-5.1)
[2019-06-27 17:35] LABS: Albumin Globulin Ratio 0.8 (0.9-2); Bilirubin,Total 0.6 mg/dl (0.2-1); C Reactive Protein 0.48 mg/dl (0-0.29); Globulin 4.3 gm/dl (2.5-4.0); Total Protein 7.8 gm/dl (6.4-8.2)
[2019-06-27] MEDS ORDERED: DAPTOmycin 500 MG in SYRINGE 0 ML IV ONE (17:58)
--- NOTE | 2019-06-27 18:11 | CT Scan Report ---
CT foot RT wo con HISTORY: 73 years-old Female poss osteo chronic right foot pain and swelling with redness COMPARISON: MRI of the right foot 01/09/2019, right toe radiographs 01/01/2019 TECHNIQUE: Multiple axial CT images of the right foot were obtained without the use of IV contrast. A dose lowering technique was used consistent with the principals of BERE. FINDINGS: Moderate subcutaneous edema with moderate to extensive muscular atrophy. Arterial calcifications are noted. Tendons and ligaments are not well evaluated by CT. The imaged ligaments and tendons appear gr ossly unremarkable. Thickening of the distal Achilles tendon suggests chronic tendinosis. No drainabl e fluid collection. Demineralized appearance of the bones. Large plantar and Achilles enthesophyte of the calcaneus. Mild tibiotalar with moderate hindfoot, midfoot and forefoot degenerative change. There is no acute fract ure or subluxation identified. Midfoot alignment appears satisfactory. Moderate degenerative changes about the first MTP joint. There is extension of the metatarsal-phalangeal joints with flexion of the interphalangeal joints which limits the study. No definite bony erosive changes identified to sugges t acute osteomyelitis. IMPRESSION: 1. No acute fracture, dislocation or definite bony erosion to suggest acute osteomyelitis. 2. Demineralized appearance of the bones with multifocal degenerative changes as above. 3. Nonspecific diffuse moderate subcutaneous edema. Differential considerations would include celluli tis, venous stasis or lymphedema. No drainable fluid collection. 4. Peripheral arterial calcifications. The above report was generated using voice recognition software. It may contain grammatical, syntax o r spelling errors. Electronically signed by: Chase Elliott M.D. 06/27/2019 6:10 PM
--- NOTE | 2019-06-27 19:37 | History & Physical Report ---
Date of Service June 27, 2019 Assessment & Plan (1) Cellulitis of both lower extremities: - Presented with worsening bilat LE cellulitis; was recently admitted from 06/21-06/25, discharged on Doxy PO. - Lactic acid 2.1; has been afebrile but did report chills at home. - Start Ceftriaxone and Daptomycin for empiric coverage. - Consult ID -- has followed with Dr. Meadows in the past and Dr. Can evaluated pt. during last admission. - Wound care nurse evaluation. - Edema and erythema of right 2nd and 3rd toes - CT of right foot was negative; consider MRI to rule out osteomyelitis. (2) Lactic acidosis: - Lactic acid level was 2.1; will trend in 6 hours. - Related to bilat LE cellulitis. (3) Diabetes mellitus with diabetic polyneuropathy: - Hold home Metformin and NPH. - A1C was 8.1, previously 7.3. - Pharmacy consulted for glycemic management. (4) Atrial fibrillation: - Continue Diltiazem and Metoprolol as prescribed. - Continue Xarelto 15 mg daily. (5) Chronic venous stasis: - Continue Bumex 2 mg PO BID. - Wound care nurse consulted. (6) COPD (chronic obstructive pulmonary disease): - Continue Brovana, Flovent HFA. - No evidence of acute exacerbation. (7) Chronic diastolic (congestive) heart failure: - Most recent TTE in Oct 2016 with EF 55-60%, moderate LVH and mildly reduced right ventricular systolic function. - Chronically requires 3L via NC at home; currently on baseline O2. - Monitor daily weights and net I/Os. - Continue Bumex 2 mg PO BID - pt reports LE edema is increased but she has been taking Bumex as prescribed. - Continue beta markos as prescribed. (8) Hyperlipidemia: - Continue statin as prescribed. (9) Hypertension: - Continue Metoprolol and Diltiazem as prescribed. (10) Hypothyroidism: - Continue Levothyroxine 50 mcg daily. - TSH was 3.03 in December 2018. (11) PAD (peripheral artery disease): - Arterial duplex showed high grade stenosis of bilat lower extremities. - Consulted vascular surgery during previous admission, no surgical intervention indicated. - Continue statin as prescribed. (12) Morbid obesity: - BMI 54.8. (13) DVT prophylaxis: - Continue home Xarelto. Dispo: Med/surg for treatment of cellulitis with IV abx. History of Present Illness Chief Complaint: Cellulitis Primary Care Provider: Maxine Roberts MD Mrs. Arellano is a 73 year old female with past medical history of DM, A. fib, HTN, Chronic Diastolic HF, Chronic Venous stasis, COPD, HLD, Hypothyroidism, PAD, Morbid obesity who presented with worsening cellulitis. Pt. was admitted from Jun 21 to Jun 25 for LE cellulitis; she received Ceftriaxone and Dapto as an inpatient. Pt. was instructed to take a course of Doxycycline PO as an outpt and follow up with the wound clinic. She developed increased redness at home along with increased redness of right 2nd and third toes. Pt. also had "seeping" of bilat LE -- optifoam dressing did not stay intact due to discharge. Had chills this morning, did not take her temperature to evaluate for a fever. Denies chest pain, SOB, headache, vision changes, N/V, constipation or diarrhea, dysuria or hematuria. ER course: She received dose of Ceftriaxone and Dapto in the ER. Will be admitted for IV abx and ID consult. Allergies Allergy/AdvReac Type Severity Reaction Status Date / Time Penicillins Allergy Intermediate HIVES Verified 06/27/19 18:06 mineral oil Allergy Unknown Unverified 06/27/19 18:06 metronidazole AdvReac Unknown NAUSEA Verified 06/27/19 18:06 ceresin [From Eucerin] AdvReac Redness of Verified 06/27/19 18:06 Skin emollient combination no.33 AdvReac Redness of Verified 06/27/19 18:06 [From Eucerin] Skin isopropyl myristate AdvReac Redness of Verified 06/27/19 18:06 [From Eucerin] Skin lanolin alcohols AdvReac Redness of Verified 06/27/19 18:06 [From Eucerin] Skin mineral oil [From Eucerin] AdvReac Redness of Verified 06/27/19 18:06 Skin soap [From Eucerin] AdvReac Redness of Verified 06/27/19 18:06 Skin water [From Eucerin] AdvReac Redness of Verified 06/27/19 18:06 Skin Home Medications Home Medications Medication Instructions Recorded Confirmed Type Brovana 15 mcg INHALATION AMPM 09/18/18 06/27/19 History Flovent HFA 1 puff INHALATION BID 09/18/18 06/27/19 History Xarelto 15 mg PO DAILY@1800 09/18/18 06/27/19 History acetaminophen [Tylenol Extra 500 mg PO Q4H PRN 09/18/18 06/27/19 History Strength] albuterol sulfate 1 - 2 puff INHALATION Q4H PRN 09/18/18 06/27/19 History atorvastatin 40 mg PO DAILY@1800 09/18/18 06/27/19 History bumetanide 2 mg PO BID 09/18/18 06/27/19 History cholecalciferol (vitamin D3) 2,000 units PO DAILY@1200 09/18/18 06/27/19 History [Vitamin D3] magnesium oxide 400 mg PO DAILY@1200 09/18/18 06/27/19 History metoprolol succinate 150 mg PO QAM 09/18/18 06/27/19 History diltiazem HCl 240 mg PO QAM 10/06/18 06/27/19 History potassium chloride ER 10 mEq 10 meq PO QAM #90 cap 03/30/19 06/27/19 Rx capsule,extended release Oxygen Home #1 ea 04/03/19 06/27/19 History pen needle, diabetic 32 gauge x #50 ea 04/03/19 06/27/19 History 1/4" albuterol sulfate 2.5 mg/3 mL 2.5 mg INHALATION .COMPLEX PRN ml 04/24/19 06/27/19 History (0.083 %) solution for nebulization alprazolam 0.5 mg tablet 0.5 mg PO QPM PRN #30 tab 04/24/19 06/27/19 History triamcinolone acetonide 0.5 % 1 applic TOPICAL BID gm 04/24/19 06/27/19 History topical cream blood sugar diagnostic strips #50 ea 05/15/19 06/27/19 Rx insulin lispro [Humalog KwikPen 5 unit SUBCUT DAILY@1200 06/21/19 06/27/19 History Insulin] metformin 1,000 mg PO QAM 06/21/19 06/27/19 History metformin 500 mg PO HS 06/21/19 06/27/19 History doxycycline hyclate 100 mg PO BID 7 Days #14 cap 06/25/19 06/27/19 Rx allopurinol 100 mg PO DAILY@1800 06/27/19 06/27/19 History insulin NPH and regular human 82 unit SUBCUT QAM 06/27/19 06/27/19 History [Humulin 70/30 U-100 KwikPen] insulin NPH and regular human 85 unit SUBCUT HS 06/27/19 06/27/19 History [Humulin 70/30 U-100 KwikPen] levothyroxine 50 mcg PO QAM 06/27/19 06/27/19 History nystatin 1 appln TOP DAILY 06/27/19 06/27/19 History Past Med/Surg History Medical History Basal cell carcinoma, face Depression with anxiety Diabetic peripheral neuropathy Hirsutism Hyperlipidemia Hypertension Obstructive sleep apnea Acquired claw toe of right foot Acquired claw toe of left foot Diabetes mellitus with diabetic polyneuropathy CKD (chronic kidney disease) stage 3, GFR 30-59 ml/min COPD (chronic obstructive pulmonary disease) Atrial fibrillation Endometrial cancer (Resolved) Hypothyroidism Anxiety (Chronic) COPD (chronic obstructive pulmonary disease) (Chronic) Diabetes (Chronic) Acquired lymphedema (Inactive) Anxiety (Inactive) Atrial flutter (Inactive) CHF (congestive heart failure) (Inactive) Callus (Inactive) Malignant neoplasm of corpus uteri (Inactive) Neuropathic ulcer of toe of right foot (Inactive) Pleural effusion (Inactive) Sciatica (Inactive) Surgical History S/P hysterectomy (Chronic) S/P thoracentesis (Inactive) Hx of salpingo-oophorectomy, bilateral Family History Father Coronary heart disease Myocardial infarction Mother Alzheimer disease Social History Preferred Language: Trinidadian Communication Ability: Effective Tool Chaser Required: No Beliefs That Will Affect Care: None marital status: Current Living Situation: Spouse current occupational status: retired Feels Safe at Home: Yes Smoking Status: Never smoker Hx Alcohol Use: No Hx Substance Use: No Dental Care, Regularly: Yes Physical Activity Frequency: 1-2 Times per Week Sunscreen Use: No Review of Systems Review of Systems: All systems reviewed & are unremarkable except as noted in HPI & below Constitutional: + chills; no fever, no fatigue, no weakness and no anorexia Respiratory: no cough, no dyspnea, no dyspnea on exertion and no wheezing Cardiovascular: + edema; no chest pain, no palpitations and no lightheadedness Gastrointestinal: no abdominal pain, no nausea, no vomiting and no constipation Genitourinary: no dysuria, no difficulty urinating and no hematuria Musculoskeletal: no back pain, no joint pain and no myalgia Integumentary: + non-healing lesions, + wounds and + erythema Physical Exam Physical Exam: General: Resting comfortably HEENT: NC/AT; PERRLA with EOMI; [place] conjunctiva, MMM. No erythema of posterior pharynx Neck: Supple and nontender Cardiac: RRR Lungs: CTA bilaterally Abdomen: Bowel normoactive X 4; Nontender to palpation Rectal: Deferred : Deferred Back: NO spinous tenderness Extremities: Warm. +1-2 bilat LE edema, no weeping noted on exam. Neuro: No focal weakness Skin: Erythema of bilat calves, increased since discharge. No open wounds or discharge noted. Warm to palpation. Right 2nd and 3rd toe erythematous, TTP. Constitutional: WD/WN, vitals as above + morbidly obese Eyes: normal visual [place]uero[place] by confrontation and + anicteric sclerae Neck: normal visual inspection and trachea midline Respiratory: normal respiratory effort, lungs clear to auscultation Cardiovascular: Rate/Rhythm: regular rate and regular rhythm Gastrointestinal (Abdomen): Inspection/Auscultation: abdomen not distended Percussion/Palpation: abdomen soft; abdomen nontender Musculoskeletal: Head/Neck/Chest: normocephalic and head atraumatic chronic LE edema, + pedal pulses Skin: b/l LE redness, some appears chronic, some appears acute LE weeping b/l Scaling skin Neurologic: awake; not confused Speech / Cognition: normal speech Psychiatric: A+Ox3, euthymic affect Lymphatic: Exam as done by Marlin Villegas DO Results & Data Vital Signs (Past 12 Hours) Vital Signs Temp Pulse Resp BP Pulse Ox 06/27/19 18:30 66 24 167/88 H 95 06/27/19 18:01 65 22 169/66 H 97 06/27/19 18:00 65 22 97 06/27/19 17:31 65 24 152/56 H 98 06/27/19 17:30 68 20 06/27/19 17:08 67 17 97 06/27/19 17:00 65 18 178/76 H 97 06/27/19 16:37 36.8 C 68 22 180/80 H 98 Laboratory Results 06/27/19 06/27/19 06/27/19 Range/Units 16:57 16:57 16:57 WBC (4.8-10.8) K/uL RBC (4.2-5.4) M/uL Hgb (12.0-16.0) g/dL Hct (37-47) % MCV (80-100) fL MCH (25-34) pg MCHC (32-36) g/dL RDW Std Deviation (36.4-46.3) fL RDW Coeff of Davina (11.5-14.5) % Plt Count (130-400) K/uL MPV (7.4-10.4) fL Immature Gran % (Auto) % Neut % (Auto) % Lymph % (Auto) % [place] % (Auto) % Eos % (Auto) % Baso % (Auto) % Immature Gran # (Auto) (0.00-0.02) K/uL Neut # (Auto) (1.4-6.5) K/uL Lymph # (Auto) (1.2-3.4) K/uL [place] # (Auto) (0.11-0.59) K/uL Eos # (Auto) (0-0.5) K/uL Baso # (Auto) (0-0.2) K/uL ESR (0-21) mm/hr Sodium 137 (136-145) mmol/L Potassium 3.9 (3.5-5.1) mmol/L Chloride 100 (98-107) mmol/L Carbon Dioxide 31 (21-32) mmol/L Anion Gap 6.0 (3-11) BUN 25 H (7-18) mg/dl Creatinine 1.09 (0.6-1.2) mg/dl Est Cr Clr Drug Dosing 56.4 ml/min Est GFR ( Amer) 57.9 Est GFR (Non-Af Amer) 50.0 BUN/Creatinine Ratio 23.2 H (10-20) Glucose 106 H (70-99) mg/dl Lactate 2.1 H* (0.4-2.0) mmol/L Calcium 8.7 (8.5-10.1) mg/dl Magnesium 1.8 (1.8-2.4) mg/dl Total Bilirubin 0.6 (0.2-1) mg/dl AST 40 H (15-37) U/L ALT 66 (12-78) U/L Alkaline Phosphatase 156 H (45-117) U/L C-Reactive Protein 0.48 H (0-0.29) mg/dl Total Protein 7.8 (6.4-8.2) gm/dl Albumin 3.5 (3.4-5.0) gm/dl Globulin 4.3 H (2.5-4.0) gm/dl Albumin/Globulin Ratio 0.8 L (0.9-2) Procalcitonin < 0.05 (0-0.5) ng/ml 06/27/19 06/27/19 Range/Units 16:57 16:57 WBC 6.18 (4.8-10.8) K/uL RBC 4.29 (4.2-5.4) M/uL Hgb 12.8 (12.0-16.0) g/dL Hct 37.9 (37-47) % MCV 88.3 (80-100) fL MCH 29.8 (25-34) pg MCHC 33.8 (32-36) g/dL RDW Std Deviation 52.3 H (36.4-46.3) fL RDW Coeff of Davina 16.3 H (11.5-14.5) % Plt Count 209 (130-400) K/uL MPV 9.2 (7.4-10.4) fL Immature Gran % (Auto) 0.2 % Neut % (Auto) 66.4 % Lymph % (Auto) 22.7 % [place] % (Auto) 7.8 % Eos % (Auto) 2.1 % Baso % (Auto) 0.8 % Immature Gran # (Auto) 0.01 (0.00-0.02) K/uL Neut # (Auto) 4.11 (1.4-6.5) K/uL Lymph # (Auto) 1.40 (1.2-3.4) K/uL [place] # (Auto) 0.48 (0.11-0.59) K/uL Eos # (Auto) 0.13 (0-0.5) K/uL Baso # (Auto) 0.05 (0-0.2) K/uL ESR > 90 H (0-21) mm/hr Sodium (136-145) mmol/L Potassium (3.5-5.1) mmol/L Chloride (98-107) mmol/L Carbon Dioxide (21-32) mmol/L Anion Gap (3-11) BUN (7-18) mg/dl Creatinine (0.6-1.2) mg/dl Est Cr Clr Drug Dosing ml/min Est GFR ( Amer) Est GFR (Non-Af Amer) BUN/Creatinine Ratio (10-20) Glucose (70-99) mg/dl Lactate (0.4-2.0) mmol/L Calcium (8.5-10.1) mg/dl Magnesium (1.8-2.4) mg/dl Total Bilirubin (0.2-1) mg/dl AST (15-37) U/L ALT (12-78) U/L Alkaline Phosphatase (45-117) U/L C-Reactive Protein (0-0.29) mg/dl Total Protein (6.4-8.2) gm/dl Albumin (3.4-5.0) gm/dl Globulin (2.5-4.0) gm/dl Albumin/Globulin Ratio (0.9-2) Procalcitonin (0-0.5) ng/ml Code Status & VTE Plan Code Status FULL CODE VTE Prophylaxis Plan VTE Prophylaxis will be ordered: Yes Supervising Physician Co-Signing Physician Notes Pt seen and examined by me. Denies chest pain or SOB. Tolerating PO without issue. States her LE redness was increasing. Also with return to LE weeping. Some LE burning, but no increased pain. 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
[2019-06-27] MEDS ORDERED: GLUCOSE 40% GEL 15 GM TUBE PO PRN (20:31)
[2019-06-27] MEDS ORDERED: DEXTROSE 50% 50 ML SYRINGE IV PRN (20:31)
[2019-06-27] MEDS ORDERED: GLUCOSE 10 TABS/TUBE PO PRN (20:31)
[2019-06-27] MEDS ORDERED: GLUCAGON FOR INJ 1 MG VIAL SQ PRN (20:31)
[2019-06-27] MEDS ORDERED: ALBUTEROL 0.083% NEBU SOLN 3 ML VIAL INH PRN (20:31)
[2019-06-27] MEDS ORDERED: CARBOHYDRATES FOR HYPOGLYCEMIA PO PRN (20:31)
[2019-06-27] MEDS ORDERED: PHARMACY GLYCEMIC MGMT CONSULT PRN (21:34)
[2019-06-27] MEDS ORDERED: INSULIN HUMAN NPH SC ONE (21:45)
[2019-06-27] MEDS ORDERED: CONSULT PHARMACY PRN (21:51)
[2019-06-27] MEDS ORDERED: DAPTOMYCIN CONSULT ACTIVE PRN (21:57)
[2019-06-27] MEDS: BUMETANIDE 1 MG TAB PO SCH (22:18)
[2019-06-27] MEDS: FLUTICASONE HFA 110MCG INHALER INH SCH (22:18)
[2019-06-27] MEDS: INSULIN ASPART 100 UNITS/ML 3 ML PEN SC SCH (22:23)
[2019-06-28 05:37] LABS: Hematocrit (blood only) 37.4 % (37-47); Hemoglobin 12.4 g/dL (12.0-16.0); Mean Corpuscular Hemoglobin 29.3 pg (25-34); Mean Corpuscular Hgb Conc 33.2 g/dL (32-36); Mean Corpuscular Volume 88.4 fL (80-100); Mean Platelet Volume 9.4 fL (7.4-10.4); Platelet Count 189 K/uL (130-400); RDW Coefficient of Variation 16.5 % (11.5-14.5); RDW Standard Deviation 52.7 fL (36.4-46.3); Red Blood Count 4.23 M/uL (4.2-5.4); White Blood Count 6.03 K/uL (4.8-10.8)
[2019-06-28] MEDS: BUMETANIDE 1 MG TAB PO SCH ×2 (05:37→16:57)
[2019-06-28] MEDS: LEVOTHYROXINE SODIUM 50 MCG TABLET PO SCH (05:37)
[2019-06-28 06:07] LABS: Albumin Globulin Ratio 0.9 (0.9-2); Albumin Level 3.4 gm/dl (3.4-5.0); BUN Creatinine Ratio 24.5 (10-20); Bilirubin,Total 0.6 mg/dl (0.2-1); Creatinine Clr Calc Pharmacy 68.4 ml/min; Est GFR (African American) 68.4; Globulin 3.9 gm/dl (2.5-4.0); Potassium 3.6 mmol/L (3.5-5.1); Total Protein 7.3 gm/dl (6.4-8.2)
[2019-06-28] MEDS: ARFORMOTEROL TART 15MCG/2ML VIAL INH SCH ×2 (07:41→19:24)
--- NOTE | 2019-06-28 07:48 | Infectious Disease Consult ---
Date of Consultation June 28, 2019 Assessment & Plan (1) Cellulitis of right lower leg: pt will continue on IV abx, wound care eval pending. overall improved. will follow. History of Present Illness Attending Physician: Marlin Villegas DO pt recently admitted 06/21-06/25, was on IV abx, clinically improved and was d/c home on doxy. had recurrent pain in left 2nd and 3rd toe, came back to Er, states some seeping from toe. no f/c. overall feeling better, ct negative osteo. placed back on IV abx, tolerating well. no f/c. no abd pain no n/v/d, no cp, sob, cough. was to follow in wound center on saturday. no pain in foot currently, oob to chair. Allergies Allergy/AdvReac Type Severity Reaction Status Date / Time Penicillins Allergy Intermediate HIVES Verified 06/27/19 18:06 mineral oil Allergy Unknown Unverified 06/27/19 18:06 metronidazole AdvReac Unknown NAUSEA Verified 06/27/19 18:06 ceresin [From Eucerin] AdvReac Redness of Verified 06/27/19 18:06 Skin emollient combination no.33 AdvReac Redness of Verified 06/27/19 18:06 [From Eucerin] Skin isopropyl myristate AdvReac Redness of Verified 06/27/19 18:06 [From Eucerin] Skin lanolin alcohols AdvReac Redness of Verified 06/27/19 18:06 [From Eucerin] Skin mineral oil [From Eucerin] AdvReac Redness of Verified 06/27/19 18:06 Skin soap [From Eucerin] AdvReac Redness of Verified 06/27/19 18:06 Skin water [From Eucerin] AdvReac Redness of Verified 06/27/19 18:06 Skin Home Medications Home Medications Medication Instructions Recorded Confirmed Type Brovana 15 mcg INHALATION AMPM 09/18/18 06/27/19 History Flovent HFA 1 puff INHALATION BID 09/18/18 06/27/19 History Xarelto 15 mg PO DAILY@1800 09/18/18 06/27/19 History acetaminophen [Tylenol Extra 500 mg PO Q4H PRN 09/18/18 06/27/19 History Strength] albuterol sulfate 1 - 2 puff INHALATION Q4H PRN 09/18/18 06/27/19 History atorvastatin 40 mg PO DAILY@1800 09/18/18 06/27/19 History bumetanide 2 mg PO BID 09/18/18 06/27/19 History cholecalciferol (vitamin D3) 2,000 units PO DAILY@1200 09/18/18 06/27/19 History [Vitamin D3] magnesium oxide 400 mg PO DAILY@1200 09/18/18 06/27/19 History metoprolol succinate 150 mg PO QAM 09/18/18 06/27/19 History diltiazem HCl 240 mg PO QAM 10/06/18 06/27/19 History potassium chloride ER 10 mEq 10 meq PO QAM #90 cap 03/30/19 06/27/19 Rx capsule,extended release Oxygen Home #1 ea 04/03/19 06/27/19 History pen needle, diabetic 32 gauge x #50 ea 04/03/19 06/27/19 History 1/4" albuterol sulfate 2.5 mg/3 mL 2.5 mg INHALATION .COMPLEX PRN ml 04/24/19 06/27/19 History (0.083 %) solution for nebulization alprazolam 0.5 mg tablet 0.5 mg PO QPM PRN #30 tab 04/24/19 06/27/19 History triamcinolone acetonide 0.5 % 1 applic TOPICAL BID gm 04/24/19 06/27/19 History topical cream blood sugar diagnostic strips #50 ea 05/15/19 06/27/19 Rx insulin lispro [Humalog KwikPen 5 unit SUBCUT DAILY@1200 06/21/19 06/27/19 History Insulin] metformin 1,000 mg PO QAM 06/21/19 06/27/19 History metformin 500 mg PO HS 06/21/19 06/27/19 History doxycycline hyclate 100 mg PO BID 7 Days #14 cap 06/25/19 06/27/19 Rx allopurinol 100 mg PO DAILY@1800 06/27/19 06/27/19 History insulin NPH and regular human 82 unit SUBCUT QAM 06/27/19 06/27/19 History [Humulin 70/30 U-100 KwikPen] insulin NPH and regular human 85 unit SUBCUT HS 06/27/19 06/27/19 History [Humulin 70/30 U-100 KwikPen] levothyroxine 50 mcg PO QAM 06/27/19 06/27/19 History nystatin 1 appln TOP DAILY 06/27/19 06/27/19 History Patient History Medical History Basal cell carcinoma, face Depression with anxiety Diabetic peripheral neuropathy Hirsutism Hyperlipidemia Hypertension Obstructive sleep apnea Acquired claw toe of right foot Acquired claw toe of left foot Diabetes mellitus with diabetic polyneuropathy CKD (chronic kidney disease) stage 3, GFR 30-59 ml/min COPD (chronic obstructive pulmonary disease) Atrial fibrillation Endometrial cancer (Resolved) Hypothyroidism Anxiety (Chronic) COPD (chronic obstructive pulmonary disease) (Chronic) Diabetes (Chronic) Acquired lymphedema (Inactive) Anxiety (Inactive) Atrial flutter (Inactive) CHF (congestive heart failure) (Inactive) Callus (Inactive) Malignant neoplasm of corpus uteri (Inactive) Neuropathic ulcer of toe of right foot (Inactive) Pleural effusion (Inactive) Sciatica (Inactive) Surgical History S/P hysterectomy (Chronic) S/P thoracentesis (Inactive) Hx of salpingo-oophorectomy, bilateral Family History Father Coronary heart disease Myocardial infarction Mother Alzheimer disease Social History Preferred Language: Telugu Communication Ability: Effective Foot Worker Required: No Beliefs That Will Affect Care: None marital status: Current Living Situation: Spouse current occupational status: retired Other Information That Helps Us Care for You: No Feels Safe at Home: Yes Safety Concerns: Feels Safe At This Time Smoking Status: Never smoker Hx Alcohol Use: No Hx Substance Use: No Dental Care, Regularly: Yes Physical Activity Frequency: 1-2 Times per Week Sunscreen Use: No Review of Systems Review of Systems: All systems reviewed & are unremarkable except as noted in HPI & below Physical Exam Constitutional: WD/WN, vitals as above Eyes: PERRL, conjunctivae normal, anicteric sclerae ENMT: external ear and nose normal, oropharynx normal Neck: normal visual inspection Respiratory: normal respiratory effort, lungs clear to auscultation Cardiovascular: RRR, no murmur, no edema Gastrointestinal (Abdomen): normal bowel sounds, soft, nontender, no hepatosplenomegaly Musculoskeletal: no cyanosis or clubbing, extremities motor strength 5/5 Skin: + dry skin and + erythema (b/l le much improved, less edema, chronic changes) Psychiatric: A+Ox3, euthymic affect Results & Data Vital Signs (Past 12 Hours) Vital Signs Temp Pulse Pulse Resp BP BP BP 06/28/19 07:21 36.5 C 72 16 149/64 H 06/27/19 23:00 36.7 C 60 18 153/63 H 06/27/19 20:30 36.6 C 71 20 107/70 06/27/19 20:04 66 22 162/60 H 06/27/19 20:02 96 H 20 162/60 H Pulse Ox 06/28/19 07:21 99 06/27/19 23:00 96 06/27/19 20:30 96 06/27/19 20:04 96 06/27/19 20:02 96 PG Care Time/CCT Total # of Minutes Spent Total Time Spent with Patient: Total time spent is greater than 50% in coordination of care (as documented) at patient's floor/unit and/or counseling patient:
[2019-06-28] MEDS: INSULIN ASPART 100 UNITS/ML 3 ML PEN SC SCH ×4 (08:42→22:02)
[2019-06-28] MEDS: FLUTICASONE HFA 110MCG INHALER INH SCH ×2 (08:44→22:01)
[2019-06-28] MEDS: METOPROLOL SUCC 50MG EXT REL TAB PO SCH (08:49)
[2019-06-28] MEDS: dilTIAZem HCL 240 MG CAPCR PO SCH (08:49)
[2019-06-28] MEDS ORDERED: INSULIN HUMAN NPH SC ONE (09:15)
--- NOTE | 2019-06-28 13:38 | Hospitalist Progress Note ---
Date of Service June 28, 2019 Assessment & Plan (1) Cellulitis of both lower extremities: - Presented with worsening bilat LE cellulitis; was recently admitted from 06/21-06/25, discharged on Doxy PO. - Erythema/edema has improved but has not returned to her baseline yet. - Has been afebrile but did report chills at home. - Continue Ceftriaxone and Daptomycin for empiric coverage. - Consulted ID, appreciate input. - Wound care nurse evaluation. (2) Acquired claw toe of right foot: - Has right 2nd and 3rd toe erythema/edema -- evaluated by Dr. Carnes during last admission. - Foot CT negative for osteomyelitis, did show subQ edema but no drainable collection. - Consider repeat wound consult with Dr. Carnes. (3) Lactic acidosis: - Lactic acid level 2.1 -> 1.8. - Related to bilat LE cellulitis. (4) Diabetes mellitus with diabetic polyneuropathy: - Hold home Metformin and NPH. - A1C was 8.1, previously 7.3. - Pharmacy consulted for glycemic management. (5) Atrial fibrillation: - Continue Diltiazem and Metoprolol as prescribed. - Continue Xarelto 15 mg daily. (6) Chronic venous stasis: - Continue Bumex 2 mg PO BID. - Elevate legs as tolerated. - Wound care nurse consulted. (7) COPD (chronic obstructive pulmonary disease): - Continue Brovana, Flovent HFA with Albuterol prn. - No evidence of acute exacerbation. (8) Chronic diastolic (congestive) heart failure: - Most recent TTE in Oct 2016 with EF 55-60%, moderate LVH and mildly reduced right ventricular systolic function. - Chronically requires 3L via NC at home; currently on baseline oxygen. - Monitor daily weights and net I/Os. - Continue Bumex 2 mg PO BID. - Continue Metoprolol. (9) Hyperlipidemia: - Continue statin as prescribed. (10) Hypertension: - Continue Metoprolol and Diltiazem as prescribed. (11) Hypothyroidism: - Continue Levothyroxine 50 mcg daily. - TSH was 3.03 in December 2018. (12) PAD (peripheral artery disease): - Arterial duplex showed high grade stenosis of bilat lower extremities. - Consulted vascular surgery during previous admission, no surgical intervention indicated. - Continue statin as prescribed. (13) Morbid obesity: - BMI 53.8. (14) DVT prophylaxis: - Continue home Xarelto. Dispo: Med/surg for treatment of cellulitis with IV abx. Supervising Physician Co-Signing Physician Notes Chart reviewed, case discussed with Griselda Patel PAC. Agree with decision making and plan. Care as above. Subjective Pt. reports LE redness is slightly improved; had minor discharge from [facility] today but no open wounds noted. Edema of bilat LE improving. On home oxygen requirements. Right 2nd and 3rd toes remain edematous but erythema improved. Review of Systems Review of Systems: All systems reviewed & are unremarkable except as noted in HPI & below Constitutional: no fever, no chills, no fatigue and no weakness Respiratory: no cough, no dyspnea, no dyspnea on exertion and no wheezing Cardiovascular: + edema; no chest pain and no palpitations Gastrointestinal: no abdominal pain, no nausea and no constipation Musculoskeletal: no back pain and no joint pain Integumentary: + sores, + wounds and + erythema; no dry skin and no pruritus Physical Exam Physical Exam: General: Resting comfortably HEENT: NC/AT; PERRLA with EOMI; [place] conjunctiva, MMM. No erythema of posterior pharynx Neck: Supple and nontender Cardiac: RRR Lungs: CTA bilaterally Abdomen: Bowel normoactive X 4; Nontender to palpation Extremities: Warm. +1 bilat LE edema, no weeping noted. Neuro: No focal weakness Skin: Erythema of bilat calves slightly improved. No open wounds. Right 2nd and 3rd toe erythematous, edematous. Results & Data Vital Signs (Past 12 Hours) Vital Signs Temp Pulse Resp BP Pulse Ox 06/28/19 08:48 71 06/28/19 07:45 56 L 16 95 06/28/19 07:21 36.5 C 72 16 149/64 H 99 Laboratory Results 06/28/19 06/28/19 06/28/19 Range/Units 11:59 08:01 04:56 WBC (4.8-10.8) K/uL RBC (4.2-5.4) M/uL Hgb (12.0-16.0) g/dL Hct (37-47) % MCV (80-100) fL MCH (25-34) pg MCHC (32-36) g/dL RDW Std Deviation (36.4-46.3) fL RDW Coeff of Davina (11.5-14.5) % Plt Count (130-400) K/uL MPV (7.4-10.4) fL Immature Gran % (Auto) % Neut % (Auto) % Lymph % (Auto) % [place] % (Auto) % Eos % (Auto) % Baso % (Auto) % Immature Gran # (Auto) (0.00-0.02) K/uL Neut # (Auto) (1.4-6.5) K/uL Lymph # (Auto) (1.2-3.4) K/uL [place] # (Auto) (0.11-0.59) K/uL Eos # (Auto) (0-0.5) K/uL Baso # (Auto) (0-0.2) K/uL ESR (0-21) mm/hr Sodium 136 (136-145) mmol/L Potassium 3.6 (3.5-5.1) mmol/L Chloride 100 (98-107) mmol/L Carbon Dioxide 30 (21-32) mmol/L Anion Gap 6.0 (3-11) BUN 23 H (7-18) mg/dl Creatinine 0.95 (0.6-1.2) mg/dl Est Cr Clr Drug Dosing 68.4 ml/min Est GFR ( Amer) 68.4 Est GFR (Non-Af Amer) 59.0 BUN/Creatinine Ratio 24.5 H (10-20) Glucose 126 H (70-99) mg/dl POC Glucose 173 H 142 H (70-99) Lactate (0.4-2.0) mmol/L Calcium 9.0 (8.5-10.1) mg/dl Magnesium (1.8-2.4) mg/dl Total Bilirubin 0.6 (0.2-1) mg/dl AST 34 (15-37) U/L ALT 53 (12-78) U/L Alkaline Phosphatase 147 H (45-117) U/L C-Reactive Protein (0-0.29) mg/dl Total Protein 7.3 (6.4-8.2) gm/dl Albumin 3.4 (3.4-5.0) gm/dl Globulin 3.9 (2.5-4.0) gm/dl Albumin/Globulin Ratio 0.9 (0.9-2) Procalcitonin (0-0.5) ng/ml 06/28/19 06/27/19 06/27/19 Range/Units 04:56 23:02 20:46 WBC 6.03 (4.8-10.8) K/uL RBC 4.23 (4.2-5.4) M/uL Hgb 12.4 (12.0-16.0) g/dL Hct 37.4 (37-47) % MCV 88.4 (80-100) fL MCH 29.3 (25-34) pg MCHC 33.2 (32-36) g/dL RDW Std Deviation 52.7 H (36.4-46.3) fL RDW Coeff of Davina 16.5 H (11.5-14.5) % Plt Count 189 (130-400) K/uL MPV 9.4 (7.4-10.4) fL Immature Gran % (Auto) % Neut % (Auto) % Lymph % (Auto) % [place] % (Auto) % Eos % (Auto) % Baso % (Auto) % Immature Gran # (Auto) (0.00-0.02) K/uL Neut # (Auto) (1.4-6.5) K/uL Lymph # (Auto) (1.2-3.4) K/uL [place] # (Auto) (0.11-0.59) K/uL Eos # (Auto) (0-0.5) K/uL Baso # (Auto) (0-0.2) K/uL ESR (0-21) mm/hr Sodium (136-145) mmol/L Potassium (3.5-5.1) mmol/L Chloride (98-107) mmol/L Carbon Dioxide (21-32) mmol/L Anion Gap (3-11) BUN (7-18) mg/dl Creatinine (0.6-1.2) mg/dl Est Cr Clr Drug Dosing ml/min Est GFR ( Amer) Est GFR (Non-Af Amer) BUN/Creatinine Ratio (10-20) Glucose (70-99) mg/dl POC Glucose 109 H (70-99) Lactate 1.8 (0.4-2.0) mmol/L Calcium (8.5-10.1) mg/dl Magnesium (1.8-2.4) mg/dl Total Bilirubin (0.2-1) mg/dl AST (15-37) U/L ALT (12-78) U/L Alkaline Phosphatase (45-117) U/L C-Reactive Protein (0-0.29) mg/dl Total Protein (6.4-8.2) gm/dl Albumin (3.4-5.0) gm/dl Globulin (2.5-4.0) gm/dl Albumin/Globulin Ratio (0.9-2) Procalcitonin (0-0.5) ng/ml 06/27/19 06/27/19 06/27/19 Range/Units 16:57 16:57 16:57 WBC (4.8-10.8) K/uL RBC (4.2-5.4) M/uL Hgb (12.0-16.0) g/dL Hct (37-47) % MCV (80-100) fL MCH (25-34) pg MCHC (32-36) g/dL RDW Std Deviation (36.4-46.3) fL RDW Coeff of Davina (11.5-14.5) % Plt Count (130-400) K/uL MPV (7.4-10.4) fL Immature Gran % (Auto) % Neut % (Auto) % Lymph % (Auto) % [place] % (Auto) % Eos % (Auto) % Baso % (Auto) % Immature Gran # (Auto) (0.00-0.02) K/uL Neut # (Auto) (1.4-6.5) K/uL Lymph # (Auto) (1.2-3.4) K/uL [place] # (Auto) (0.11-0.59) K/uL Eos # (Auto) (0-0.5) K/uL Baso # (Auto) (0-0.2) K/uL ESR (0-21) mm/hr Sodium 137 (136-145) mmol/L Potassium 3.9 (3.5-5.1) mmol/L Chloride 100 (98-107) mmol/L Carbon Dioxide 31 (21-32) mmol/L Anion Gap 6.0 (3-11) BUN 25 H (7-18) mg/dl Creatinine 1.09 (0.6-1.2) mg/dl Est Cr Clr Drug Dosing 56.4 ml/min Est GFR ( Amer) 57.9 Est GFR (Non-Af Amer) 50.0 BUN/Creatinine Ratio 23.2 H (10-20) Glucose 106 H (70-99) mg/dl POC Glucose (70-99) Lactate 2.1 H* (0.4-2.0) mmol/L Calcium 8.7 (8.5-10.1) mg/dl Magnesium 1.8 (1.8-2.4) mg/dl Total Bilirubin 0.6 (0.2-1) mg/dl AST 40 H (15-37) U/L ALT 66 (12-78) U/L Alkaline Phosphatase 156 H (45-117) U/L C-Reactive Protein 0.48 H (0-0.29) mg/dl Total Protein 7.8 (6.4-8.2) gm/dl Albumin 3.5 (3.4-5.0) gm/dl Globulin 4.3 H (2.5-4.0) gm/dl Albumin/Globulin Ratio 0.8 L (0.9-2) Procalcitonin < 0.05 (0-0.5) ng/ml 06/27/19 06/27/19 Range/Units 16:57 16:57 WBC 6.18 (4.8-10.8) K/uL RBC 4.29 (4.2-5.4) M/uL Hgb 12.8 (12.0-16.0) g/dL Hct 37.9 (37-47) % MCV 88.3 (80-100) fL MCH 29.8 (25-34) pg MCHC 33.8 (32-36) g/dL RDW Std Deviation 52.3 H (36.4-46.3) fL RDW Coeff of Davina 16.3 H (11.5-14.5) % Plt Count 209 (130-400) K/uL MPV 9.2 (7.4-10.4) fL Immature Gran % (Auto) 0.2 % Neut % (Auto) 66.4 % Lymph % (Auto) 22.7 % [place] % (Auto) 7.8 % Eos % (Auto) 2.1 % Baso % (Auto) 0.8 % Immature Gran # (Auto) 0.01 (0.00-0.02) K/uL Neut # (Auto) 4.11 (1.4-6.5) K/uL Lymph # (Auto) 1.40 (1.2-3.4) K/uL [place] # (Auto) 0.48 (0.11-0.59) K/uL Eos # (Auto) 0.13 (0-0.5) K/uL Baso # (Auto) 0.05 (0-0.2) K/uL ESR > 90 H (0-21) mm/hr Sodium (136-145) mmol/L Potassium (3.5-5.1) mmol/L Chloride (98-107) mmol/L Carbon Dioxide (21-32) mmol/L Anion Gap (3-11) BUN (7-18) mg/dl Creatinine (0.6-1.2) mg/dl Est Cr Clr Drug Dosing ml/min Est GFR ( Amer) Est GFR (Non-Af Amer) BUN/Creatinine Ratio (10-20) Glucose (70-99) mg/dl POC Glucose (70-99) Lactate (0.4-2.0) mmol/L Calcium (8.5-10.1) mg/dl Magnesium (1.8-2.4) mg/dl Total Bilirubin (0.2-1) mg/dl AST (15-37) U/L ALT (12-78) U/L Alkaline Phosphatase (45-117) U/L C-Reactive Protein (0-0.29) mg/dl Total Protein (6.4-8.2) gm/dl Albumin (3.4-5.0) gm/dl Globulin (2.5-4.0) gm/dl Albumin/Globulin Ratio (0.9-2) Procalcitonin (0-0.5) ng/ml PG Care Time/CCT Total # of Minutes Spent Total Time Spent with Patient: Total time spent is greater than 50% in coordination of care (as documented) at patient's floor/unit and/or counseling patient: (1) Diabetes mellitus with diabetic polyneuropathy Diabetes mellitus care home insulin use: unspecified watermelon 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
--- NOTE | 2019-06-28 15:03 | Pharmacy Report ---
Glycemic Control Consultation - Date of Service June 28, 2019 - Scope Scope: Glycemic Pharmacist consulted by Griselda Patel on 06/27 for glycemic control and to write orders per [facility] inpatient glycemic control protocol - Objective Weight: 133.4 kg Accuchecks BSG (last 24hrs): 06/27/19 06/27/19 06/28/19 16:57 20:46 04:56 Glucose 106 H 126 H POC Glucose 109 H 06/28/19 06/28/19 08:01 11:59 Glucose POC Glucose 142 H 173 H Laboratory Data (last 24hrs): 06/27/19 06/28/19 16:57 04:56 Potassium 3.9 3.6 Carbon Dioxide 31 30 Anion Gap 6.0 6.0 Creatinine 1.09 0.95 Est Cr Clr Drug Dosing 56.4 68.4 - Recent Pertinent Medications Outpatient Anti-diabetic Regimen: * humulin 70/30 82 units qam and 85 units qpm, humalog 5 u daily @12 * A1c = 8.1 % 06/21/19 Risk Factors for Insulin Resistance: * Infection: cellulitis * Diet: T2DM - Assessment & Plan Assessment & Plan: ASSESSMENT: * 73 year old admitted with worsening cellulitis started on dapto and rocephin on admission. Type 2 diabetic managed on 70/30 insulin at home ~172 units/day. Known by glycemic service from other admissions * Received 20 units of NPH last evening, started on novolog ssi with parameters similar to previous admissions * Fasting this AM 126 mg/dL - will dose NPH 35 units this AM and add scale for dinner * PLAN FOR INPATIENT GLYCEMIC CONTROL: * Basal insulin * NPH 35 x1, then BIDM per scale * For BSG less than 180 - give 35 units * For BSG 180 or greater - give 40 units * Bolus insulin * NovoLog per scale ACHS or Q6hrs while NPO * Goal Range: Low 110 mg/dL - High 140 mg/dL * Correction Factor: 10 mg/dL/unit * Nutritional / Prandial insulin per carb ratio of 1 unit per 4 grams CHO consumed * Please note that the plan above was derived based on current level of insulin resistance and hospital stress. These recommendations are appropriate for inpatient admission only. Plan of care upon discharge will need to be reassessed to avoid potential outpatient hypo/hyperglycemia. Thank you.
[2019-06-28] MEDS: cefTRIAXone SODIUM 2,000 MG in DEXTROSE 5% 50 ML IV SCH (16:57)
[2019-06-28] MEDS: DAPTOmycin 350 MG in SYRINGE 0 ML IV SCH (17:39)
[2019-06-28] MEDS: allopurinoL 100 MG TAB PO SCH (17:40)
[2019-06-28] MEDS: RIVAROXABAN 15 MG TAB PO SCH (17:40)
[2019-06-28] MEDS: ATORVASTATIN 40 MG TAB PO SCH (17:41)
[2019-06-28] MEDS: INSULIN HUMAN NPH SC SCH (18:54)
[2019-06-29] MEDS: BUMETANIDE 1 MG TAB PO SCH ×2 (05:11→16:45)
[2019-06-29] MEDS: LEVOTHYROXINE SODIUM 50 MCG TABLET PO SCH (05:11)
[2019-06-29 06:31] LABS: BUN Creatinine Ratio 18.8 (10-20); Calcium 9.2 mg/dl (8.5-10.1); Creatinine Clr Calc Pharmacy 62.5 ml/min; Est GFR (African American) 61.3; Est GFR (Non-African American) 52.9; Potassium 3.6 mmol/L (3.5-5.1)
[2019-06-29] MEDS: ARFORMOTEROL TART 15MCG/2ML VIAL INH SCH ×2 (07:30→19:24)
[2019-06-29] MEDS: dilTIAZem HCL 240 MG CAPCR PO SCH ×2 (07:43→07:50)
[2019-06-29] MEDS: METOPROLOL SUCC 50MG EXT REL TAB PO SCH ×2 (07:44→07:50)
[2019-06-29] MEDS: FLUTICASONE HFA 110MCG INHALER INH SCH ×2 (07:50→21:08)
[2019-06-29] MEDS: INSULIN ASPART 100 UNITS/ML 3 ML PEN SC SCH ×4 (08:37→21:09)
[2019-06-29] MEDS: INSULIN HUMAN NPH SC SCH ×2 (08:40→18:12)
--- NOTE | 2019-06-29 09:29 | Pharmacy Report ---
Pharmacy Glycemic Short Note 2 - Date of Service June 29, 2019 - Glycemic Short BSG Results (Last 24 hours): 06/28/19 06/28/19 06/28/19 11:59 17:16 20:14 Glucose POC Glucose 173 H 168 H 253 H 06/28/19 06/29/19 06/29/19 20:55 05:27 07:59 Glucose 130 H POC Glucose 242 H 139 H OUTPATIENT ANTIDIABETIC REGIMEN: * Premixed insulin with humulin 70/30 insulin 82 units qam and 85 units qpm, humalog 5 u daily @12 * A1c = 8.1 % 06/21/19 ASSESSMENT: * 73 year old admitted with worsening cellulitis started on dapto and rocephin on admission. Known by glycemic service from other admissions * Outpatient regimen is premixed basal/prandial insulin of Humulin 70/30 mix insulin ~172 units/day * Pre-mixed insulin is difficult to titrate since it is already in a fixed distribution of basal:prandial insulin. Continuing pre-mixed insulin for admission typically lead to hypoglycemia d/t changing PO status but rapid acting insulin is unable to be held. * Home regimen held for admission per pharmacy consult. Utilizing SQ basal bolus insulin regimen with separate components of NPH + NovoLog (CF+CR) * Pt has received 131 units of insulin over the past 24hrs * 70 units of basal insulin with NPH * 61 until of bolus/prandial insulin with NovoLog * AM fasting BSG in goal range at 139 g/dl --> no changes needed to basal insulin * Post-prandial BSGs mildly elevated --> will slightly tighten CR PLAN FOR INPATIENT GLYCEMIC CONTROL: * Hold outpatient premixed insulin * Basal insulin no change * NPH 35-40 units SQ BIDM * 35 units for BSG < 180 * 40 units for BSG 180 or above * Bolus insulin: tighten CR * NovoLog per scale ACHS or Q6hrs while NPO * Goal Range: Low 110 mg/dL - High 140 mg/dL * Correction Factor: 10 mg/dL/unit * Nutritional / Prandial insulin per carb ratio of 1 unit per 3.5 grams CHO consumed Discharge Recs: * A1c = 8.1 % on 06/21/19 * Previous A1c = 7.3% on 04/09/19 * Goal A1c = 7-8 % based on age and comorbidities * Suspect that A1c has increased secondary to ongoing infection * Patient can continue to titrate her outpatient insulin regimen as directed by outpatient provider
--- NOTE | 2019-06-29 10:41 | Infectious Disease Progress Nt ---
Date of Service June 29, 2019 Assessment & Plan (1) Cellulitis of right lower leg: pt will continue on IV abx, wound care eval pending. overall improved. will follow. will likey need Dalvance post d/c at [facility]. discussed with patient, she is agreeable. Subjective pt oob to chair, states itching in legs overnight, less pain in foot. CT negative for osteo. tolerating abx, afebrile. blood cultures negative. no cp, sob, cough, walls. no n/v/d/abd pain. Review of Systems Review of Systems: All systems reviewed & are unremarkable except as noted in HPI & below Physical Exam Constitutional: WD/WN, vitals as above Eyes: PERRL, conjunctivae normal, anicteric sclerae ENMT: external ear and nose normal, oropharynx normal Neck: normal visual inspection Respiratory: normal respiratory effort, lungs clear to auscultation Cardiovascular: RRR, no murmur, no edema Gastrointestinal (Abdomen): normal bowel sounds, soft, nontender, no hepatosplenomegaly Musculoskeletal: no cyanosis or clubbing, extremities motor strength 5/5 Skin: + dry skin and + erythema (b/l le much improved, less edema, chronic changes) Psychiatric: A+Ox3, euthymic affect Results & Data Vital Signs (Past 12 Hours) Vital Signs Temp Pulse Resp BP BP Pulse Ox 06/29/19 07:48 79 152/98 H 06/29/19 07:30 66 18 98 06/29/19 06:54 36.4 C L 62 18 93/63 L 97 06/29/19 06:47 37.1 C 67 18 158/80 H 97 06/28/19 23:42 36.7 C 59 L 16 181/71 H 184/68 H 97 Laboratory Results Microbiology 06/27/19 17:02 Blood Aerobic Blood Culture - Preliminary No growth in Aerobic bottle after 24 hours. 06/27/19 17:02 Blood Anaerobic Blood Culture - Preliminary No growth in Anaerobic bottle after 24 hours. 06/27/19 16:57 Blood Aerobic Blood Culture - Preliminary No growth in Aerobic bottle after 24 hours. 06/27/19 16:57 Blood Anaerobic Blood Culture - Preliminary No growth in Anaerobic bottle after 24 hours. PG Care Time/CCT Total # of Minutes Spent Total Time Spent with Patient: Total time spent is greater than 50% in coordination of care (as documented) at patient's floor/unit and/or counseling patient:
[2019-06-29] MEDS: cefTRIAXone SODIUM 2,000 MG in DEXTROSE 5% 50 ML IV SCH (16:44)
[2019-06-29] MEDS: ATORVASTATIN 40 MG TAB PO SCH (18:14)
[2019-06-29] MEDS: allopurinoL 100 MG TAB PO SCH (18:14)
[2019-06-29] MEDS: RIVAROXABAN 15 MG TAB PO SCH (18:14)
[2019-06-29] MEDS: DAPTOmycin 350 MG in SYRINGE 0 ML IV SCH (19:43)
--- NOTE | 2019-06-29 20:19 | Hospitalist Progress Note ---
Date of Service June 29, 2019 Assessment & Plan (1) Cellulitis of both lower extremities: - Presented with worsening bilat LE cellulitis; was recently admitted from 06/21-06/25, discharged on Doxy PO. -Seems to have improved nicely, now looks mostly like significant venous stasis changes but no active infection outside of her right third toe. Continue current antibiotics, infectious disease looking to probably set her up with Dalvance. (2) Acquired claw toe of right foot: - Has right 2nd and 3rd toe erythema/edema -- evaluated by Dr. Carnes during last admission. - Foot CT negative for osteomyelitis, did show subQ edema but no drainable collection. -Local wound care, antibiotics, outpatient wound treatment, no apparent need clinically for urgent intervention/debridement (3) Lactic acidosis: Improved (4) Diabetes mellitus with diabetic polyneuropathy: -Sugars overall reasonable, continue current care - A1C was 8.1, previously 7.3. - Pharmacy consulted for glycemic management. (5) Atrial fibrillation: -Rate controlled, anticoagulated (6) Chronic venous stasis: -Continue local wound care. Given that she has a bad reaction to good moisturizers, will give trial to a steroid to try to calm down the itching. After that possibly more of a petroleum-based moisturizer like Aquaphor may help, given that her reaction sounds more to have been irritation of the moisturizer on open skin than a true allergy. (7) COPD (chronic obstructive pulmonary disease): - Continue Brovana, Flovent HFA with Albuterol prn. -Appears to have chronic respiratory failure requiring O2, continue (8) Chronic diastolic (congestive) heart failure: - Most recent TTE in Oct 2016 with EF 55-60%, moderate LVH and mildly reduced right ventricular systolic function. - Chronically requires 3L via NC at home; currently on baseline oxygen. - Monitor daily weights and net I/Os. - Continue Bumex 2 mg PO BID. - Continue Metoprolol. -Does not appear in exacerbation at this time (9) Hyperlipidemia: - Continue statin as prescribed. (10) Hypertension: -Pressure is reasonable given the circumstances, continue current meds and continue to follow (11) Hypothyroidism: - Continue Levothyroxine 50 mcg daily. - TSH was 3.03 in December 2018. (12) PAD (peripheral artery disease): - Arterial duplex showed high grade stenosis of bilat lower extremities. - Consulted vascular surgery during previous admission, no surgical intervention indicated. - Continue ischemia at this time (13) Morbid obesity: - BMI 53.8. (14) DVT prophylaxis: - Continue home Xarelto. Dispo: Med/surg for treatment of cellulitis with IV abx. Goal will be home with outpatient PCP/infectious disease/wound care follow-up once she is showing further improvement Subjective Notes that generally legs look much better and are far less swollen when she first came in, she notes they were seeping fairly profusely at that time which has improved. The pain is improved. The toe is looking a little better. Her main complaint now is that her skin on her legs are so dry and scaly that is extremely itchy. She notes that she has had bad reactions to Eucerin, and wound notes this has significant crossover problems with Lac-Hydrin. Review of Systems Review of Systems: All systems reviewed & are unremarkable except as noted in HPI & below Physical Exam Physical Exam: General she is awake and alert pleasant no distress. HEENT normocephalic atraumatic mucous membranes moist. Breathing is unlabored no accessory muscle use good effort. Bilateral lower extremities show chronic venous stasis changes with discoloration and dry scaling skin bilaterally, there are no open lesions and no tracking erythema. Her right third toe has erythema on the extensor surface and a dark callus on the flexor surface, no tracking erythema nontender no crepitus. Results & Data Vital Signs (Past 12 Hours) Vital Signs Temp Pulse Resp BP Pulse Ox 06/29/19 19:26 79 16 97 06/29/19 15:09 98.4 F 56 L 20 145/51 H 97 PG Care Time/CCT Total # of Minutes Spent Total Time Spent with Patient: Total time spent is greater than 50% in coordination of care (as documented) at patient's floor/unit and/or counseling patient: (1) Diabetes mellitus with diabetic polyneuropathy Diabetes mellitus type: type 2 Diabetes mellitus prison insulin use: unspecified prison insulin use status Qualified Code(s): E11.42 - Type 2 diabetes mellitus with diabetic polyneuropathy
[2019-06-29] MEDS: TRIAMCINOLONE ACET 0.1% OINT 80 GM TUBE EXT SCH (21:08)
[2019-06-30] MEDS: LEVOTHYROXINE SODIUM 50 MCG TABLET PO SCH (05:38)
[2019-06-30] MEDS: BUMETANIDE 1 MG TAB PO SCH ×2 (05:38→16:20)
[2019-06-30] MEDS: ARFORMOTEROL TART 15MCG/2ML VIAL INH SCH ×2 (07:27→19:33)
[2019-06-30] MEDS: TRIAMCINOLONE ACET 0.1% OINT 80 GM TUBE EXT SCH ×3 (09:32→20:07)
[2019-06-30] MEDS: METOPROLOL SUCC 50MG EXT REL TAB PO SCH (09:32)
[2019-06-30] MEDS: dilTIAZem HCL 240 MG CAPCR PO SCH (09:32)
[2019-06-30] MEDS: FLUTICASONE HFA 110MCG INHALER INH SCH ×2 (09:33→20:08)
[2019-06-30] MEDS: INSULIN HUMAN NPH SC SCH ×2 (09:33→18:06)
[2019-06-30] MEDS: INSULIN ASPART 100 UNITS/ML 3 ML PEN SC SCH ×4 (09:34→21:13)
[2019-06-30] MEDS: ASPIRIN 81 MG ECTAB PO SCH (09:45)
[2019-06-30] MEDS: cefTRIAXone SODIUM 2,000 MG in DEXTROSE 5% 50 ML IV SCH (15:41)
[2019-06-30] MEDS: DAPTOmycin 350 MG in SYRINGE 0 ML IV SCH (18:06)
[2019-06-30] MEDS: ATORVASTATIN 40 MG TAB PO SCH (18:07)
[2019-06-30] MEDS: allopurinoL 100 MG TAB PO SCH (18:07)
[2019-06-30] MEDS: RIVAROXABAN 15 MG TAB PO SCH (18:07)
--- NOTE | 2019-06-30 19:01 | Hospitalist Progress Note ---
Date of Service June 30, 2019 Assessment & Plan (1) Cellulitis of both lower extremities: -Admitted with concern on bilateral lower extremity cellulitisbut with the rate of improvement on her legs it seems most likely that the only true area of cellulitis was her right third toe. -See below in regards to venous stasis/stasis dermatitis. -Continue current antibiotics for nowinfectious disease asked that we get Dalvance set [id number] mg x 1, followed by 500 mg a week later. Case management working on this. (2) Acquired claw toe of right foot: - Has right 2nd and 3rd toe erythema/edema -- evaluated by Dr. Carnes during last admission. - Foot CT negative for osteomyelitis, did show subQ edema but no drainable collection. -Local wound care, antibiotics, outpatient wound treatment, no apparent need clinically for urgent intervention/debridement -After discharge definitely will want to have her continue to follow-up with wound clinic. (3) Lactic acidosis: Improved (4) Diabetes mellitus with diabetic polyneuropathy: -Sugar control currently adequate, continue current glycemic management - A1C was 8.1, previously 7.3. - Pharmacy consulted for glycemic management. (5) Atrial fibrillation: -Rate controlled, anticoagulated (6) Chronic venous stasis: -As above noted, while she presented with concern on bilateral lower extremity cellulitis, the leg skin changes improved so quickly it almost had to all be just venous stasis changes. Continue local wound care. We did extensive discussions on her "reaction" to moisturizersit seems that it is probably more just that putting moisturizer on broken skin stings. We discussed that she could disapprove her allergy by putting a small streak of Eucerin on intact skin such as the extensor surface of her forearm, and if she had no reaction, then she would know that the reaction was simply irritation from moisturizer on broken skin. Either way, the steroid ointment seems to be helping, we discussed that this cannot be used indefinitely as it can lead to thinning of the skin, but it would probably be safe to use for a few more days (arbitrarily may be 5 days total), and then change to a petroleum-based moisturizer such as Aquaphor. -She definitely would benefit from ongoing compression, and is willing to do so. (7) COPD (chronic obstructive pulmonary disease): - Continue Brovana, Flovent HFA with Albuterol prn. -Appears to have chronic respiratory failure requiring O2, continue -No acute symptoms (8) Chronic diastolic (congestive) heart failure: - Most recent TTE in Oct 2016 with EF 55-60%, moderate LVH and mildly reduced right ventricular systolic function. - Chronically requires 3L via NC at home; currently on baseline oxygen. - Monitor daily weights and net I/Os. - Continue Bumex 2 mg PO BID. - Continue Metoprolol. -Appearing euvolemic and asymptomatic (9) Hyperlipidemia: - Continue statin as prescribed. (10) Hypertension: -Readings are overall acceptable, continue current medications (11) Hypothyroidism: - Continue Levothyroxine 50 mcg daily. - TSH was 3.03 in December 2018. (12) PAD (peripheral artery disease): - Arterial duplex showed high grade stenosis of bilat lower extremities. - Consulted vascular surgery during previous admission, no surgical intervention indicated. - added asa 81mg daily, on atorvastatin 40mg (13) Morbid obesity: - BMI 53.8. (14) DVT prophylaxis: - Continue home Xarelto. Dispo: Med/surg for treatment of cellulitis with IV abx. home with outpatient PCP, wound, lymphedema f/u (either wound clinic or [facility]) once dalvance arranged (hopefully as soon as 07/01) Subjective Generally feeling better. Legs are less itchy, appreciates the steroid ointment. Toe peeling some, but not really hurting. No other acute complaints. She discusses that she used to have chronic venous stasis/lymphedema management but somehow it fell by the wayside. She is willing to get back on treatment. As is her usual, she relates a lot of related, semi-related, and unrelated portions of her medical history as well. Review of Systems Review of Systems: All systems reviewed & are unremarkable except as noted in HPI & below Physical Exam Physical Exam: General she is awake and alert pleasant no distress. HEENT normocephalic atraumatic mucous members moist. Breathing unlabored no accessory muscle use good effort. Bilateral lower extremities show venous stasis changes, far less peeling than before there are still areas of ulceration and blistering, but does appear improved. There is no erythema there consistent with cellulitis. Right great third toe with dull improving erythema and callus underneath similar to yesterday but improving. The skin is peeling somewhat. Not really tender. No crepitus. Neuro shows no focal deficits. Results & Data Vital Signs (Past 12 Hours) Vital Signs Temp Pulse Resp BP Pulse Ox 06/30/19 15:13 97.5 F L 62 20 146/74 H 96 06/30/19 07:33 97.5 F L 64 16 139/74 97 06/30/19 07:27 64 16 98 PG Care Time/CCT Total # of Minutes Spent Total Time Spent with Patient: Total time spent is greater than 50% in coordination of care (as documented) at patient's floor/unit and/or counseling patient: (1) Diabetes mellitus with diabetic polyneuropathy Diabetes mellitus half-way insulin use: unspecified half-way insulin use status Diabetes mellitus type: type 2 Qualified Code(s): E11.42 - Type 2 diabetes mellitus with diabetic polyneuropathy
[2019-06-30] MEDS: ALPRAZolam 0.5 MG TABLET PO PRN (23:42)
[2019-07-01] MEDS: BUMETANIDE 1 MG TAB PO SCH ×2 (05:32→16:28)
[2019-07-01] MEDS: LEVOTHYROXINE SODIUM 50 MCG TABLET PO SCH (05:32)
[2019-07-01 06:03] LABS: BUN Creatinine Ratio 19.3 (10-20); Creatinine Clr Calc Pharmacy 52.3 ml/min; Est GFR (Non-African American) 43.2; Potassium 3.7 mmol/L (3.5-5.1)
[2019-07-01] MEDS: ACETAMINOPHEN 500 MG TAB PO PRN ×2 (06:24→21:31)
[2019-07-01] MEDS: ARFORMOTEROL TART 15MCG/2ML VIAL INH SCH ×2 (07:10→19:54)
[2019-07-01] MEDS: dilTIAZem HCL 240 MG CAPCR PO SCH (09:16)
[2019-07-01] MEDS: METOPROLOL SUCC 50MG EXT REL TAB PO SCH (09:16)
[2019-07-01] MEDS: TRIAMCINOLONE ACET 0.1% OINT 80 GM TUBE EXT SCH ×3 (09:16→21:31)
[2019-07-01] MEDS: ASPIRIN 81 MG ECTAB PO SCH (09:17)
[2019-07-01] MEDS: FLUTICASONE HFA 110MCG INHALER INH SCH ×2 (09:17→21:31)
[2019-07-01] MEDS: INSULIN HUMAN NPH SC SCH ×2 (09:18→18:01)
[2019-07-01] MEDS: INSULIN ASPART 100 UNITS/ML 3 ML PEN SC SCH ×4 (09:19→21:25)
--- NOTE | 2019-07-01 09:57 | Pharmacy Report ---
Pharmacy Glycemic Short Note 2 - Date of Service July 01, 2019 - Glycemic Short BSG Results (Last 24 hours): 06/30/19 06/30/19 06/30/19 12:44 17:18 20:21 Glucose POC Glucose 171 H 188 H 217 H 07/01/19 07/01/19 05:05 08:08 Glucose 126 H POC Glucose 158 H OUTPATIENT ANTIDIABETIC REGIMEN: * Premixed insulin with humulin 70/30 insulin 82 units qam and 85 units qpm, humalog 5 u daily @12 * A1c = 8.1 % 06/21/19 ASSESSMENT: * 73 year old admitted with worsening cellulitis started on dapto and rocephin on admission. Known by glycemic service from other admissions * Outpatient regimen is premixed basal/prandial insulin of Humulin 70/30 mix insulin ~172 units/day * Pre-mixed insulin is difficult to titrate since it is already in a fixed distribution of basal:prandial insulin. Continuing pre-mixed insulin for admission typically lead to hypoglycemia d/t changing PO status but rapid acting insulin is unable to be held. * Home regimen held for admission per pharmacy consult. Utilizing SQ basal bolus insulin regimen with separate components of NPH + NovoLog (CF+CR) * Pt has received 139 units of insulin over the past 24hrs * 80 units of basal insulin with NPH * 59 until of bolus/prandial insulin with NovoLog * AM fasting BSG in goal range at 126 g/dl --> no changes needed to basal insulin * Post-prandial BSGs mildly elevated , no change though as patient did get full 80 units of basal yesterday as we changed the parameters for receiving 40 units NPH for BSG > 150mg/dl, will consider tightening CR further if blood sugars continue to trend above goal today. PLAN FOR INPATIENT GLYCEMIC CONTROL: * Hold outpatient premixed insulin * Basal insulin: * NPH 35-40 units SQ BIDM * 35 units for BSG < 150 * 40 units for BSG 150 or above * Bolus insulin: * NovoLog per scale ACHS or Q6hrs while NPO * Goal Range: Low 110 mg/dL - High 140 mg/dL * Correction Factor: 10 mg/dL/unit * Nutritional / Prandial insulin per carb ratio of 1 unit per 3.5 grams CHO consumed Discharge Recs: * A1c = 8.1 % on 06/21/19 * Previous A1c = 7.3% on 04/09/19 * Goal A1c = 7-8 % based on age and comorbidities * Suspect that A1c has increased secondary to ongoing infection * Patient can continue to titrate her outpatient insulin regimen as directed by outpatient provider
--- NOTE | 2019-07-01 11:26 | Hospitalist Progress Note ---
Date of Service July 01, 2019 Assessment & Plan (1) Cellulitis of both lower extremities: Continue admit for bilateral lower extremity cellulitisbut with the rate of improvement on her legs it seems most likely that the only true area of cellulitis was her right third toe. See below in regards to venous stasis/stasis dermatitis. Continue current antibiotics for nowinfectious disease. We will start Dalvance set [id number] mg x 1, followed by 500 mg a week later. His spa manager stated that it has been approved. (2) Acquired claw toe of right foot: Has right 2nd and 3rd toe erythema/edema -- evaluated by Dr. Carnes during last admission. Foot CT negative for osteomyelitis, did show subQ edema but no drainable collection. Local wound care, antibiotics, outpatient wound treatment, no apparent need clinically for urgent intervention/debridement After discharge definitely will want to have her continue to follow-up with wound clinic. (3) Lactic acidosis: Improved (4) Diabetes mellitus with diabetic polyneuropathy: -Sugar control currently adequate, continue current glycemic management - A1C was 8.1, previously 7.3. - Pharmacy consulted for glycemic management. (5) Atrial fibrillation: Rate controlled, anticoagulated (6) Chronic venous stasis: As above noted, while she presented with concern on bilateral lower extremity cellulitis, the leg skin changes improved so quickly it almost had to all be just venous stasis changes. Continue local wound care. We did extensive discussions on her "reaction" to moisturizersit seems that it is probably more just that putting moisturizer on broken skin stings. We discussed that she could disapprove her allergy by putting a small streak of Eucerin on intact skin such as the extensor surface of her forearm, and if she had no reaction, then she would know that the reaction was simply irritation from moisturizer on broken skin. Either way, the steroid ointment seems to be helping, we discussed that this cannot be used indefinitely as it can lead to thinning of the skin, but it would probably be safe to use for a few more days (arbitrarily may be 5 days total), and then change to a petroleum-based moisturizer such as Aquaphor. She definitely would benefit from ongoing compression, and is willing to do so. (7) COPD (chronic obstructive pulmonary disease): Continue Brovana, Flovent HFA with Albuterol prn. Appears to have chronic respiratory failure requiring O2, continue No acute symptoms (8) Chronic diastolic (congestive) heart failure: Most recent TTE in Oct 2016 with EF 55-60%, moderate LVH and mildly red uced right ventricular systolic function. Chronically requires 3L via NC at home; currently on baseline oxygen. Monitor daily weights and net I/Os. Continue Bumex 2 mg PO BID. Continue Metoprolol. Appearing euvolemic and asymptomatic (9) Hyperlipidemia: Continue statin as prescribed. (10) Hypertension: Readings are overall acceptable, continue current medications (11) Hypothyroidism: Continue Levothyroxine 50 mcg daily. TSH was 3.03 in December 2018. (12) PAD (peripheral artery disease): Arterial duplex showed high grade stenosis of bilat lower extremities. Consulted vascular surgery during previous admission, no surgical intervention indicated. added asa 81mg daily, on atorvastatin 40mg (13) Morbid obesity: - BMI 53.8. (14) DVT prophylaxis: - Continue home Xarelto. Dispo: Med/surg for treatment of cellulitis with IV abx. home with outpatient PCP, wound, lymphedema f/u (either wound clinic or [place] [facility]) once evi alvarez nged (hopefully as soon as 07/01) Subjective Patient seen and examined at the bedside. Feels better today. Slowly improving. Legs are less itchy, appreciates the steroid ointment. Toe peeling some, but not really hurting. No other acute complaints. She discusses that she used to have chronic venous stasis/lymphedema management but somehow it fell by the wayside. She is willing to get back on treatment. Patient denies fever chills chest pain shortness of breath abdominal pain frequency urgency. Review of Systems Review of Systems: All systems reviewed & are unremarkable except as noted in HPI & below Physical Exam Constitutional: WD/WN, vitals as above well developed Eyes: PERRL, conjunctivae normal, anicteric sclerae ENMT: external ear and nose normal, oropharynx normal Neck: trachea midline, no thyromegaly Respiratory: normal respiratory effort, lungs clear to auscultation Cardiovascular: RRR, no murmur, no edema Gastrointestinal (Abdomen): normal bowel sounds, soft, nontender, no hepatosplenomegaly Skin: + dry skin and + skin hypertrophy Neurologic: patellar DTR's 2+ bilat, sensation intact Psychiatric: A+Ox3, euthymic affect Lymphatic: no cervical or axillary lymphadenopathy Results & Data Vital Signs (Past 12 Hours) Vital Signs Temp Pulse Resp BP Pulse Ox 07/01/19 09:15 66 136/70 07/01/19 07:30 36.4 C L 64 20 138/65 94 07/01/19 07:10 65 18 97 07/01/19 05:35 151/60 H 06/30/19 23:30 36.4 C L 64 20 135/67 92 PG Care Time/CCT Total # of Minutes Spent Total Time Spent with Patient: Total time spent is greater than 50% in coordination of care (as documented) at patient's floor/unit and/or counseling patient: (1) Diabetes mellitus with diabetic polyneuropathy Diabetes mellitus type: type 2 Diabetes mellitus skin carver insulin use: unspecified skin carver insulin use status Qualified Code(s): E11.42 - Type 2 d iabetes mellitus with diabetic polyneuropathy
[2019-07-01] MEDS: cefTRIAXone SODIUM 2,000 MG in DEXTROSE 5% 50 ML IV SCH (16:28)
[2019-07-01] MEDS: RIVAROXABAN 15 MG TAB PO SCH (17:58)
[2019-07-01] MEDS: ATORVASTATIN 40 MG TAB PO SCH (17:58)
[2019-07-01] MEDS: allopurinoL 100 MG TAB PO SCH (17:59)
[2019-07-01] MEDS: DAPTOmycin 350 MG in SYRINGE 0 ML IV SCH (18:04)
[2019-07-02] MEDS: BUMETANIDE 1 MG TAB PO SCH ×2 (05:41→17:41)
[2019-07-02] MEDS: LEVOTHYROXINE SODIUM 50 MCG TABLET PO SCH (05:41)
[2019-07-02] MEDS: ARFORMOTEROL TART 15MCG/2ML VIAL INH SCH ×2 (07:14→20:09)
[2019-07-02] MEDS ORDERED: INSULIN HUMAN NPH SC SCH (08:00)
--- NOTE | 2019-07-02 09:30 | Pharmacy Report ---
Pharmacy Glycemic Short Note 2 - Date of Service July 02, 2019 - Glycemic Short BSG Results (Last 24 hours): 07/01/19 07/01/19 07/01/19 12:16 17:25 20:35 POC Glucose 235 H 195 H 236 H 07/02/19 08:01 POC Glucose 185 H OUTPATIENT ANTIDIABETIC REGIMEN: * Premixed insulin with humulin 70/30 insulin 82 units qam and 85 units qpm, humalog 5 u daily @12 * A1c = 8.1 % 06/21/19 ASSESSMENT: 07/02 * 147 units of SQ insulin administered over the last 24 hrs while tolerating a diet. BSGs have ranged 158-235. * Fasting BSG 185 this AM. Pt appears to be basal deficient. Will increase NPH dose further today. * Will base today's doses on and estimated total daily requirements on ~170-180 units/day, similar to outpt requirements. * May need to increase prandial insulin dose as well, but will reevaluate needs later today / tomorrow given the new increase in basal today 07/01 * 73 year old admitted with worsening cellulitis started on dapto and rocephin on admission. Known by glycemic service from other admissions * Outpatient regimen is premixed basal/prandial insulin of Humulin 70/30 mix insulin ~172 units/day * Pre-mixed insulin is difficult to titrate since it is already in a fixed distribution of basal:prandial insulin. Continuing pre-mixed insulin for admission typically lead to hypoglycemia d/t changing PO status but rapid acting insulin is unable to be held. * Home regimen held for admission per pharmacy consult. Utilizing SQ basal bolus insulin regimen with separate components of NPH + NovoLog (CF+CR) * Pt has received 139 units of insulin over the past 24hrs * 80 units of basal insulin with NPH * 59 until of bolus/prandial insulin with NovoLog * AM fasting BSG in goal range at 126 g/dl --> no changes needed to basal insulin * Post-prandial BSGs mildly elevated , no change though as patient did get full 80 units of basal yesterday as we changed the parameters for receiving 40 units NPH for BSG > 150mg/dl, will consider tightening CR further if blood sugars continue to trend above goal today. PLAN FOR INPATIENT GLYCEMIC CONTROL: * Hold outpatient premixed insulin * Basal insulin: * NPH 50 units SQ BIDM * Bolus insulin: * NovoLog per scale ACHS or Q6hrs while NPO * Goal Range: Low 110 mg/dL - High 140 mg/dL * Correction Factor: 10 mg/dL/unit * Nutritional / Prandial insulin per carb ratio of 1 unit per 3.5 grams CHO consumed Discharge Recs: * A1c = 8.1 % on 06/21/19 * Previous A1c = 7.3% on 04/09/19 * Goal A1c = 7-8 % based on age and comorbidities * Suspect that A1c has increased secondary to ongoing infection * Patient can continue to titrate her outpatient insulin regimen as directed by outpatient provider
[2019-07-02] MEDS: dilTIAZem HCL 240 MG CAPCR PO SCH (09:41)
[2019-07-02] MEDS: FLUTICASONE HFA 110MCG INHALER INH SCH ×2 (09:41→21:35)
[2019-07-02] MEDS: METOPROLOL SUCC 50MG EXT REL TAB PO SCH (09:41)
[2019-07-02] MEDS: TRIAMCINOLONE ACET 0.1% OINT 80 GM TUBE EXT SCH ×3 (09:42→21:36)
[2019-07-02] MEDS: INSULIN HUMAN NPH SC SCH ×2 (09:43→17:50)
[2019-07-02] MEDS: INSULIN ASPART 100 UNITS/ML 3 ML PEN SC SCH ×4 (09:44→22:18)
[2019-07-02] MEDS: ASPIRIN 81 MG ECTAB PO SCH (09:48)
--- NOTE | 2019-07-02 11:00 | Hospitalist Progress Note ---
Date of Service July 02, 2019 Assessment & Plan (1) Cellulitis of both lower extremities: Continue admit for bilateral lower extremity cellulitisbut with the rate of improvement on her legs it seems most likely that the only true area of cellulitis was her right third toe. See below in regards to venous stasis/stasis dermatitis. Continue current antibiotics for nowinfectious disease. We will start Dalvance set [id number] mg x 1, followed by 500 mg a week later. His talent acquisition operations manager stated that it has been approved. (2) Acquired claw toe of right foot: Slowly improving. Has right 2nd and 3rd toe erythema/edema -- evaluated by Dr. Carnes during last admission. Foot CT negative for osteomyelitis, did show subQ edema but no drainable collection. Local wound care, antibiotics, outpatient wound treatment, no apparent need clinically for urgent intervention/debridement After discharge definitely will want to have her continue to follow-up with wound clinic. (3) Lactic acidosis: Improved (4) Diabetes mellitus with diabetic polyneuropathy: -Sugar control currently adequate, continue current glycemic management - A1C was 8.1, previously 7.3. - Pharmacy consulted for glycemic management. (5) Atrial fibrillation: Rate controlled, anticoagulated (6) Chronic venous stasis: As above noted, while she presented with concern on bilateral lower extremity cellulitis, the leg skin changes improved so quickly it almost had to all be just venous stasis changes. Continue local wound care. We did extensive discussions on her "reaction" to moisturizersit seems that it is probably more just that putting moisturizer on broken skin stings. We discussed that she could disapprove her allergy by putting a small streak of Eucerin on intact skin such as the extensor surface of her forearm, and if she had no reaction, then she would know that the reaction was simply irritation from moisturizer on broken skin. Either way, the steroid ointment seems to be helping, we discussed that this cannot be used indefinitely as it can lead to thinning of the skin, but it would probably be safe to use for a few more days (arbitrarily may be 5 days total), and then change to a petroleum-based moisturizer such as Aquaphor. She definitely would benefit from ongoing compression, and is willing to do so. (7) COPD (chronic obstructive pulmonary disease): Continue Brovana, Flovent HFA with Albuterol prn. Appears to have chronic respiratory failure requiring O2, continue No acute symptoms (8) Chronic diastolic (congestive) heart failure: Most recent TTE in Oct 2016 with EF 55-60%, moderate LVH and mildly reduced right ventricular systolic function. Chronically requires 3L via NC at home; currently on baseline oxygen. Monitor daily weights and net I/Os. Continue Bumex 2 mg PO BID. Continue Metoprolol. Appearing euvolemic and asymptomatic (9) Hyperlipidemia: Continue statin as prescribed. (10) Hypertension: Readings are overall acceptable, continue current medications (11) Hypothyroidism: Continue Levothyroxine 50 mcg daily. TSH was 3.03 in December 2018. (12) PAD (peripheral artery disease): Arterial duplex showed high grade stenosis of bilat lower extremities. Consulted vascular surgery during previous admission, no surgical intervention indicated. added asa 81mg daily, on atorvastatin 40mg (13) Morbid obesity: - BMI 53.8. (14) DVT prophylaxis: - Continue home Xarelto. Dispo: Med/surg for treatment of cellulitis with IV abx. home with outpatient PCP, wound, lymphedema f/u (either wound clinic or [place] [facility]) once evi arranged (hopefully as soon as 07/01) Subjective Patient seen and examined at the bedside. Feels better today. Slowly improving. Legs are less itchy, appreciates the steroid ointment. Toe peeling some, but not really hurting. No other acute complaints. She discusses that she used to have chronic venous stasis/lymphedema management but somehow it fell by the wayside. She is willing to get back on treatment. Patient denies fever chills chest pain shortness of breath abdominal pain frequency urgency. Review of Systems Review of Systems: All systems reviewed & are unremarkable except as noted in HPI & below Physical Exam Constitutional: WD/WN, vitals as above well developed Eyes: PERRL, conjunctivae normal, anicteric sclerae ENMT: external ear and nose normal, oropharynx normal Neck: trachea midline, no thyromegaly Respiratory: normal respiratory effort, lungs clear to auscultation Cardiovascular: RRR, no murmur, no edema Gastrointestinal (Abdomen): normal bowel sounds, soft, nontender, no hepatosplenomegaly Skin: + dry skin and + skin hypertrophy Neurologic: patellar DTR's 2+ bilat, sensation intact Psychiatric: A+Ox3, euthymic affect Lymphatic: no cervical or axillary lymphadenopathy Results & Data Vital Signs (Past 12 Hours) Vital Signs Temp Pulse Pulse Resp BP Pulse Ox 07/02/19 09:40 67 125/79 07/02/19 07:16 64 18 90 07/02/19 07:15 36.5 C 64 18 169/80 H 90 PG Care Time/CCT Total # of Minutes Spent Total Time Spent with Patient: Total time spent is greater than 50% in coordination of care (as documented) at patient's floor/unit and/or counseling patient: (1) Diabetes mellitus with diabetic polyneuropathy Diabetes mellitus residential insulin use: unspecified residential insulin use status Diabetes mellitus type: type 2 Qualified Code(s): E11.42 - Type 2 diabetes mellitus with diabetic polyneuropathy
[2019-07-02 11:37] LABS: Basophils # (auto) 0.03 K/uL (0-0.2); Basophils % (auto) 0.4 %; Eosinophils # (auto) 0.18 K/uL (0-0.5); Eosinophils % (auto) 2.4 %; Hematocrit (blood only) 36.9 % (37-47); Hemoglobin 12.4 g/dL (12.0-16.0); Immature Granulocytes # (auto) 0.03 K/uL (0.00-0.02); Immature Granulocytes % (auto) 0.4 %; Lymphocytes # (auto) 0.93 K/uL (1.2-3.4); Lymphocytes % (auto) 12.6 %; Mean Corpuscular Hemoglobin 29.5 pg (25-34); Mean Corpuscular Hgb Conc 33.6 g/dL (32-36); Mean Corpuscular Volume 87.9 fL (80-100); Mean Platelet Volume 9.3 fL (7.4-10.4); Monocytes % (auto) 6.8 %; Neutrophils # (auto) 5.73 K/uL (1.4-6.5); Neutrophils % (auto) 77.4 %; Platelet Count 194 K/uL (130-400); RDW Coefficient of Variation 16.1 % (11.5-14.5); RDW Standard Deviation 51.8 fL (36.4-46.3)
[2019-07-02 11:56] LABS: Albumin Level 3.2 gm/dl (3.4-5.0); BUN Creatinine Ratio 23.2 (10-20); Calcium 8.8 mg/dl (8.5-10.1); Creatinine Clr Calc Pharmacy 55.9 ml/min; Est GFR (African American) 54.3; Est GFR (Non-African American) 46.8; Potassium 3.4 mmol/L (3.5-5.1)
[2019-07-02 11:59] LABS: Albumin Globulin Ratio 0.8 (0.9-2); Bilirubin,Total 0.5 mg/dl (0.2-1); Total Protein 7.2 gm/dl (6.4-8.2)
[2019-07-02] MEDS: cefTRIAXone SODIUM 2,000 MG in DEXTROSE 5% 50 ML IV SCH (17:29)
[2019-07-02] MEDS: allopurinoL 100 MG TAB PO SCH (17:41)
[2019-07-02] MEDS: ATORVASTATIN 40 MG TAB PO SCH (17:41)
[2019-07-02] MEDS: RIVAROXABAN 15 MG TAB PO SCH (17:41)
[2019-07-02] MEDS: DAPTOmycin 350 MG in SYRINGE 0 ML IV SCH (17:42)
[2019-07-02] MEDS: ALPRAZolam 0.5 MG TABLET PO PRN (22:43)
[2019-07-03] MEDS: BUMETANIDE 1 MG TAB PO SCH ×2 (05:53→16:58)
[2019-07-03] MEDS: LEVOTHYROXINE SODIUM 50 MCG TABLET PO SCH (05:54)
[2019-07-03 06:33] LABS: Hematocrit (blood only) 37.9 % (37-47); Hemoglobin 12.5 g/dL (12.0-16.0); Mean Corpuscular Hemoglobin 29.3 pg (25-34); Mean Corpuscular Volume 88.8 fL (80-100); RDW Standard Deviation 52.1 fL (36.4-46.3); Red Blood Count 4.27 M/uL (4.2-5.4); White Blood Count 6.46 K/uL (4.8-10.8)
[2019-07-03 06:34] LABS: Basophils # (auto) 0.05 K/uL (0-0.2); Basophils % (auto) 0.8 %; Eosinophils % (auto) 3.1 %; Immature Granulocytes # (auto) 0.02 K/uL (0.00-0.02); Immature Granulocytes % (auto) 0.3 %; Lymphocytes # (auto) 1.21 K/uL (1.2-3.4); Lymphocytes % (auto) 18.7 %; Mean Platelet Volume 9.5 fL (7.4-10.4); Monocytes # (auto) 0.59 K/uL (0.11-0.59); Monocytes % (auto) 9.1 %; Neutrophils # (auto) 4.39 K/uL (1.4-6.5); Platelet Count 193 K/uL (130-400); RDW Coefficient of Variation 16.4 % (11.5-14.5)
[2019-07-03 06:51] LABS: Albumin Level 3.2 gm/dl (3.4-5.0); BUN Creatinine Ratio 21.3 (10-20); Calcium 8.8 mg/dl (8.5-10.1); Creatinine Clr Calc Pharmacy 56.5 ml/min; Est GFR (African American) 55.4; Est GFR (Non-African American) 47.8; Potassium 3.6 mmol/L (3.5-5.1)
[2019-07-03 06:54] LABS: Albumin Globulin Ratio 0.7 (0.9-2); Bilirubin,Total 0.6 mg/dl (0.2-1); Globulin 4.4 gm/dl (2.5-4.0); Total Protein 7.6 gm/dl (6.4-8.2)
[2019-07-03] MEDS: ARFORMOTEROL TART 15MCG/2ML VIAL INH SCH ×2 (07:38→19:12)
[2019-07-03] MEDS: METOPROLOL SUCC 50MG EXT REL TAB PO SCH (09:21)
[2019-07-03] MEDS: dilTIAZem HCL 240 MG CAPCR PO SCH (09:21)
[2019-07-03] MEDS: ASPIRIN 81 MG ECTAB PO SCH (09:22)
[2019-07-03] MEDS: FLUTICASONE HFA 110MCG INHALER INH SCH ×2 (09:22→22:04)
[2019-07-03] MEDS: TRIAMCINOLONE ACET 0.1% OINT 80 GM TUBE EXT SCH ×3 (09:22→22:04)
[2019-07-03] MEDS: INSULIN HUMAN NPH SC SCH ×2 (09:25→18:31)
[2019-07-03] MEDS: INSULIN ASPART 100 UNITS/ML 3 ML PEN SC SCH ×5 (09:26→22:31)
--- NOTE | 2019-07-03 15:17 | Hospitalist Progress Note ---
Date of Service July 03, 2019 Assessment & Plan (1) Cellulitis of both lower extremities: Continue admit for bilateral lower extremity cellulitisbut with the rate of improvement on her legs it seems most likely that the only true area of cellulitis was her right third toe. See below in regards to venous stasis/stasis dermatitis. Continue current antibiotics for nowinfectious disease. We will start Dalvance set [id number] mg x 1, followed by 500 mg a week later. His administrative office manager stated that it has been approved. (2) Acquired claw toe of right foot: Slowly improving. Has right 2nd and 3rd toe erythema/edema -- evaluated by Dr. Carnes during last admission. Foot CT negative for osteomyelitis, did show subQ edema but no drainable collection. Local wound care, antibiotics, outpatient wound treatment, no apparent need clinically for urgent intervention/debridement After discharge definitely will want to have her continue to follow-up with wound clinic. (3) Lactic acidosis: Improved (4) Diabetes mellitus with diabetic polyneuropathy: -Sugar control currently adequate, continue current glycemic management - A1C was 8.1, previously 7.3. - Pharmacy consulted for glycemic management. (5) Atrial fibrillation: Rate controlled, anticoagulated (6) Chronic venous stasis: As above noted, while she presented with concern on bilateral lower extremity cellulitis, the leg skin changes improved so quickly it almost had to all be just venous stasis changes. Continue local wound care. We did extensive discussions on her "reaction" to moisturizersit seems that it is probably more just that putting moisturizer on broken skin stings. We discussed that she could disapprove her allergy by putting a small streak of Eucerin on intact skin such as the extensor surface of her forearm, and if she had no reaction, then she would know that the reaction was simply irritation from moisturizer on broken skin. Either way, the steroid ointment seems to be helping, we discussed that this cannot be used indefinitely as it can lead to thinning of the skin, but it would probably be safe to use for a few more days (arbitrarily may be 5 days total), and then change to a petroleum-based moisturizer such as Aquaphor. She definitely would benefit from ongoing compression, and is willing to do so. (7) COPD (chronic obstructive pulmonary disease): Continue Brovana, Flovent HFA with Albuterol prn. Appears to have chronic respiratory failure requiring O2, continue No acute symptoms (8) Chronic diastolic (congestive) heart failure: Most recent TTE in Oct 2016 with EF 55-60%, moderate LVH and mildly reduced right ventricular systolic function. Chronically requires 3L via [place] at home; currently on baseline oxygen. Monitor daily weights and net I/Os. Continue Bumex 2 mg PO BID. Continue Metoprolol. Appearing euvolemic and asymptomatic (9) Hyperlipidemia: Continue statin as prescribed. (10) Hypertension: Readings are overall acceptable, continue current medications (11) Hypothyroidism: Continue Levothyroxine 50 mcg daily. TSH was 3.03 in December 2018. (12) PAD (peripheral artery disease): Arterial duplex showed high grade stenosis of bilat lower extremities. Consulted vascular surgery during previous admission, no surgical intervention indicated. added asa 81mg daily, on atorvastatin 40mg (13) Morbid obesity: - BMI 53.8. (14) DVT prophylaxis: - Continue home Xarelto. Dispo: Med/surg for treatment of cellulitis with IV abx. home with outpatient PCP, wound, lymphedema f/u (either wound clinic or [facility]) once evi arranged (hopefully as soon as 07/01) Subjective Patient seen and examined at the bedside. Slowly improving. Legs are less itchy, appreciates the steroid ointment. Toe peeling some, but not really hurting. No other acute complaints. She discusses that she used to have chronic venous stasis/lymphedema management but somehow it fell by the wayside. She is willing to get back on treatment. Patient denies fever chills chest pain shortness of breath abdominal pain frequency urgency. Review of Systems Cardiovascular: + edema; no chest pain and no palpitations Integumentary: + sores, + wounds and + erythema; no dry skin and no pruritus Physical Exam Constitutional: WD/WN, vitals as above well developed Eyes: PERRL, conjunctivae normal, anicteric sclerae ENMT: external ear and nose normal, oropharynx normal Neck: trachea midline, no thyromegaly Respiratory: normal respiratory effort, lungs clear to auscultation Cardiovascular: RRR, no murmur, no edema Gastrointestinal (Abdomen): normal bowel sounds, soft, nontender, no hepatosplenomegaly Skin: + dry skin and + skin hypertrophy Neurologic: patellar DTR's 2+ bilat, sensation intact Psychiatric: A+Ox3, euthymic affect Lymphatic: no cervical or axillary lymphadenopathy Results & Data Vital Signs (Past 12 Hours) Vital Signs Temp Pulse Pulse Resp BP Pulse Ox 07/03/19 15:09 36.8 C 46 L 17 117/64 92 07/03/19 07:39 68 18 93 07/03/19 07:34 36.5 C 68 165/78 H 94 07/03/19 05:51 36.6 C 72 18 140/59 L 92 PG Care Time/CCT Total # of Minutes Spent Total Time Spent with Patient: Total time spent is greater than 50% in coordination of care (as documented) at patient's floor/unit and/or counseling patient: (1) Diabetes mellitus with diabetic polyneuropathy Diabetes mellitus type: type 2 Diabetes mellitus [facility] insulin use: unspecified [facility] insulin use status Qualified Code(s): E11.42 - Type 2 diabetes mellitus with diabetic polyneuropathy
[2019-07-03] MEDS: cefTRIAXone SODIUM 2,000 MG in DEXTROSE 5% 50 ML IV SCH (16:58)
[2019-07-03] MEDS: RIVAROXABAN 15 MG TAB PO SCH (18:36)
[2019-07-03] MEDS: allopurinoL 100 MG TAB PO SCH (18:37)
[2019-07-03] MEDS: ATORVASTATIN 40 MG TAB PO SCH (18:37)
[2019-07-03] MEDS: DAPTOmycin 350 MG in SYRINGE 0 ML IV SCH (18:37)
--- NOTE | 2019-07-03 19:47 | Progress Note ---
Date of Service July 03, 2019 Received a text page from the patient's nurse stating the following: "So, around 1500 today, Janelle's pulse was in the 40's and she reported feeling dizzy. I reassessed her about 15 minutes later and her pulse was higher around 50-60s. I notified Dr Kaur. she said that she was going to decrease the Metoprolol 150mg PO QAM to half and order an ultrasound of the heart. However, she isn't on-call any longer and it wasn't done yet." In brief review of the chart, patient was admitted for bilateral lower extremity cellulitis. Multiple other issues addressed. Did have some bradycardia but most recent vitals noted pulse of 73. There is mention in the note of chronic diastolic heart failure but no mention of checking echo. Plan: - Changed her morning dose of metoprolol from 150 mg to 75 mg. This can always be increased back to 150 mg per her primary team's discretion. - Will leave ordering an echo to the primary team in the a.m. as well. Shara Perez, PGY3 Overnight call Results & Data Vital Signs (Past 12 Hours) Vital Signs Temp Pulse Pulse Pulse Resp BP Pulse Ox 07/03/19 19:14 73 16 92 07/03/19 17:37 64 18 95 07/03/19 16:24 59 L 17 93 07/03/19 15:09 36.8 C 46 L 17 117/64 92
[2019-07-04] MEDS: ACETAMINOPHEN 500 MG TAB PO PRN (00:58)
[2019-07-04] MEDS: BUMETANIDE 1 MG TAB PO SCH ×2 (05:42→15:45)
[2019-07-04] MEDS: LEVOTHYROXINE SODIUM 50 MCG TABLET PO SCH (05:42)
[2019-07-04 06:52] LABS: Basophils # (auto) 0.04 K/uL (0-0.2); Basophils % (auto) 0.6 %; Eosinophils # (auto) 0.27 K/uL (0-0.5); Hematocrit (blood only) 37.7 % (37-47); Hemoglobin 12.8 g/dL (12.0-16.0); Immature Granulocytes # (auto) 0.02 K/uL (0.00-0.02); Immature Granulocytes % (auto) 0.3 %; Lymphocytes # (auto) 1.55 K/uL (1.2-3.4); Lymphocytes % (auto) 23.1 %; Mean Corpuscular Hemoglobin 29.8 pg (25-34); Mean Corpuscular Volume 87.7 fL (80-100); Mean Platelet Volume 9.3 fL (7.4-10.4); Monocytes # (auto) 0.56 K/uL (0.11-0.59); Monocytes % (auto) 8.4 %; Neutrophils # (auto) 4.26 K/uL (1.4-6.5); Neutrophils % (auto) 63.6 %; Platelet Count 198 K/uL (130-400); RDW Coefficient of Variation 16.4 % (11.5-14.5); RDW Standard Deviation 52.4 fL (36.4-46.3); Reticulocyte % 2.6 % (0.5-2.0); Reticulocytes # 0.11 10^6/uL (0.02-0.10)
[2019-07-04 07:26] LABS: Albumin Level 3.3 gm/dl (3.4-5.0); BUN Creatinine Ratio 24.9 (10-20); Calcium 9.1 mg/dl (8.5-10.1); Creatinine Clr Calc Pharmacy 56.1 ml/min; Est GFR (African American) 54.9; Est GFR (Non-African American) 47.3; Potassium 3.4 mmol/L (3.5-5.1)
[2019-07-04 07:31] LABS: Albumin Globulin Ratio 0.8 (0.9-2); Bilirubin,Total 0.6 mg/dl (0.2-1); Globulin 4.2 gm/dl (2.5-4.0); Total Protein 7.5 gm/dl (6.4-8.2)
[2019-07-04] MEDS: ARFORMOTEROL TART 15MCG/2ML VIAL INH SCH ×2 (07:57→20:29)
[2019-07-04 08:35] LABS: Folate (Folic Acid) 13.06 ng/ml (>5.38)
[2019-07-04] MEDS: FLUTICASONE HFA 110MCG INHALER INH SCH ×2 (09:24→21:17)
[2019-07-04] MEDS: ASPIRIN 81 MG ECTAB PO SCH (09:24)
[2019-07-04] MEDS: METOPROLOL SUCC 25MG EXT REL TAB PO SCH (09:24)
[2019-07-04] MEDS: dilTIAZem HCL 240 MG CAPCR PO SCH (09:24)
[2019-07-04] MEDS: INSULIN ASPART 100 UNITS/ML 3 ML PEN SC SCH ×4 (09:26→22:08)
[2019-07-04] MEDS: INSULIN HUMAN NPH SC SCH ×2 (09:27→18:18)
[2019-07-04] MEDS: TRIAMCINOLONE ACET 0.1% OINT 80 GM TUBE EXT SCH ×3 (09:48→21:18)
[2019-07-04] MEDS: cefTRIAXone SODIUM 2,000 MG in DEXTROSE 5% 50 ML IV SCH (15:43)
[2019-07-04] MEDS ORDERED: POTASSIUM CHLORIDE 20 MEQ TABCR PO STA (18:00)
--- NOTE | 2019-07-04 18:02 | Hospitalist Progress Note ---
Date of Service July 04, 2019 Assessment & Plan (1) Cellulitis of both lower extremities: Continue admit for bilateral lower extremity cellulitisbut with the rate of improvement on her legs it seems most likely that the only true area of cellulitis was her right third toe. See below in regards to venous stasis/stasis dermatitis. Continue current antibiotics for nowinfectious disease. We will start Dalvance set [id number] mg x 1, followed by 500 mg a week later. His manager life insurance stated that it has been approved. (2) Acquired claw toe of right foot: Slowly improving. Has right 2nd and 3rd toe erythema/edema -- evaluated by Dr. Carnes during last admission. Foot CT negative for osteomyelitis, did show subQ edema but no drainable collection. Local wound care, antibiotics, outpatient wound treatment, no apparent need clinically for urgent intervention/debridement After discharge definitely will want to have her continue to follow-up with wound clinic. (3) Lactic acidosis: Improved (4) Diabetes mellitus with diabetic polyneuropathy: -Sugar control currently adequate, continue current glycemic management - A1C was 8.1, previously 7.3. - Pharmacy consulted for glycemic management. (5) Atrial fibrillation: Rate controlled, anticoagulated (6) Chronic venous stasis: As above noted, while she presented with concern on bilateral lower extremity cellulitis, the leg skin changes improved so quickly it almost had to all be just venous stasis changes. Continue local wound care. We did extensive discussions on her "reaction" to moisturizersit seems that it is probably more just that putting moisturizer on broken skin stings. We discussed that she could disapprove her allergy by putting a small streak of Eucerin on intact skin such as the extensor surface of her forearm, and if she had no reaction, then she would know that the reaction was simply irritation from moisturizer on broken skin. Either way, the steroid ointment seems to be helping, we discussed that this cannot be used indefinitely as it can lead to thinning of the skin, but it would probably be safe to use for a few more days (arbitrarily may be 5 days total), and then change to a petroleum-based moisturizer such as Aquaphor. She definitely would benefit from ongoing compression, and is willing to do so. (7) COPD (chronic obstructive pulmonary disease): Continue Brovana, Flovent HFA with Albuterol prn. Appears to have chronic respiratory failure requiring O2, continue No acute symptoms (8) Chronic diastolic (congestive) heart failure: Most recent TTE in Oct 2016 with EF 55-60%, moderate LVH and mildly reduced right ventricular systolic function. Chronically requires 3L via [place] at home; currently on baseline oxygen. Monitor daily weights and net I/Os. Continue Bumex 2 mg PO BID. Continue Metoprolol. Appearing euvolemic and asymptomatic (9) Hyperlipidemia: Continue statin as prescribed. (10) Hypertension: Readings are overall acceptable, continue current medications (11) Hypothyroidism: Continue Levothyroxine 50 mcg daily. TSH was 3.03 in December 2018. (12) PAD (peripheral artery disease): Arterial duplex showed high grade stenosis of bilat lower extremities. Consulted vascular surgery during previous admission, no surgical intervention indicated. added asa 81mg daily, on atorvastatin 40mg (13) Morbid obesity: - BMI 53.8. (14) DVT prophylaxis: - Continue home Xarelto. Dispo: Med/surg for treatment of cellulitis with IV abx. home with outpatient PCP, wound, lymphedema f/u (either wound clinic or [facility]) once evi arranged (hopefully as soon as 07/01) Subjective e Patient seen and examined at the bedside. Slowly improving. Legs are less itchy, appreciates the steroid ointment. Toe peeling some, but not really hurting. No other acute complaints. She discusses that she used to have chronic venous stasis/lymphedema management but somehow it fell by the wayside. She is willing to get back on treatment. Patient denies fever chills chest pain shortness of breath abdominal pain frequency urgency. Plan to discharge home tomorrow. Review of Systems Review of Systems: All systems reviewed & are unremarkable except as noted in HPI & below Physical Exam Constitutional: WD/WN, vitals as above well developed Eyes: PERRL, conjunctivae normal, anicteric sclerae ENMT: external ear and nose normal, oropharynx normal Neck: trachea midline, no thyromegaly Respiratory: normal respiratory effort, lungs clear to auscultation Cardiovascular: RRR, no murmur, no edema Gastrointestinal (Abdomen): normal bowel sounds, soft, nontender, no hepatosplenomegaly Skin: + dry skin and + skin hypertrophy Neurologic: patellar DTR's 2+ bilat, sensation intact Psychiatric: A+Ox3, euthymic affect Lymphatic: no cervical or axillary lymphadenopathy Results & Data Vital Signs (Past 12 Hours) Vital Signs Temp Pulse Pulse Pulse Resp BP BP 07/04/19 15:00 36.8 C 59 L 20 171/69 H 162/62 H 07/04/19 09:22 68 165/65 H 07/04/19 08:08 36.4 C L 68 18 163/68 H 07/04/19 07:59 67 18 Pulse Ox 07/04/19 15:00 97 07/04/19 09:22 07/04/19 08:08 91 07/04/19 07:59 90 PG Care Time/CCT Total # of Minutes Spent Total Time Spent with Patient: Total time spent is greater than 50% in coordination of care (as documented) at patient's floor/unit and/or counseling patient: (1) Diabetes mellitus with diabetic polyneuropathy Diabetes mellitus type: type 2 Diabetes mellitus nursing home insulin use: unspecified nursing home insulin use status Qualified Code(s): E11.42 - Type 2 diabetes mellitus with diabetic polyneuropathy
[2019-07-04] MEDS: DAPTOmycin 350 MG in SYRINGE 0 ML IV SCH (18:19)
[2019-07-04] MEDS: RIVAROXABAN 15 MG TAB PO SCH (18:21)
[2019-07-04] MEDS: ATORVASTATIN 40 MG TAB PO SCH (18:21)
[2019-07-04] MEDS: allopurinoL 100 MG TAB PO SCH (18:21)
[2019-07-05] MEDS: BUMETANIDE 1 MG TAB PO SCH (05:32)
[2019-07-05] MEDS: LEVOTHYROXINE SODIUM 50 MCG TABLET PO SCH (05:32)
[2019-07-05 05:56] LABS: Basophils # (auto) 0.03 K/uL (0-0.2); Basophils % (auto) 0.5 %; Eosinophils # (auto) 0.24 K/uL (0-0.5); Eosinophils % (auto) 3.7 %; Hematocrit (blood only) 37.8 % (37-47); Hemoglobin 12.6 g/dL (12.0-16.0); Immature Granulocytes # (auto) 0.02 K/uL (0.00-0.02); Immature Granulocytes % (auto) 0.3 %; Lymphocytes # (auto) 1.43 K/uL (1.2-3.4); Lymphocytes % (auto) 22.1 %; Mean Corpuscular Hemoglobin 29.3 pg (25-34); Mean Corpuscular Hgb Conc 33.3 g/dL (32-36); Mean Corpuscular Volume 87.9 fL (80-100); Mean Platelet Volume 9.7 fL (7.4-10.4); Monocytes # (auto) 0.53 K/uL (0.11-0.59); Monocytes % (auto) 8.2 %; Neutrophils # (auto) 4.22 K/uL (1.4-6.5); Neutrophils % (auto) 65.2 %; Platelet Count 191 K/uL (130-400); RDW Coefficient of Variation 16.2 % (11.5-14.5); White Blood Count 6.47 K/uL (4.8-10.8)
[2019-07-05 06:37] LABS: Albumin Level 3.1 gm/dl (3.4-5.0); BUN Creatinine Ratio 25.6 (10-20); Calcium 8.9 mg/dl (8.5-10.1); Creatinine Clr Calc Pharmacy 61.9 ml/min; Est GFR (Non-African American) 53.5; Potassium 3.6 mmol/L (3.5-5.1)
[2019-07-05 06:40] LABS: Albumin Globulin Ratio 0.8 (0.9-2); Bilirubin,Total 0.6 mg/dl (0.2-1); Globulin 4.1 gm/dl (2.5-4.0); Total Protein 7.2 gm/dl (6.4-8.2)
[2019-07-05] MEDS ORDERED: DiphenhydrAMINE HCL 50 MG/ML VIAL IV STA (06:45)
[2019-07-05] MEDS: ARFORMOTEROL TART 15MCG/2ML VIAL INH SCH (07:36)
[2019-07-05] MEDS: INSULIN ASPART 100 UNITS/ML 3 ML PEN SC SCH ×2 (09:32→13:27)
[2019-07-05] MEDS: INSULIN HUMAN NPH SC SCH (09:33)
[2019-07-05] MEDS: FLUTICASONE HFA 110MCG INHALER INH SCH (09:33)
[2019-07-05] MEDS: METOPROLOL SUCC 25MG EXT REL TAB PO SCH (09:34)
[2019-07-05] MEDS: TRIAMCINOLONE ACET 0.1% OINT 80 GM TUBE EXT SCH ×2 (09:34→13:28)
[2019-07-05] MEDS: ASPIRIN 81 MG ECTAB PO SCH (09:35)
[2019-07-05] MEDS: dilTIAZem HCL 240 MG CAPCR PO SCH (09:35)
[2019-07-05] MEDS ORDERED: hydrOXYzine HCl 10 MG TAB PO PRN (10:51)
[2019-07-05] MEDS ORDERED: HYDROCORTISONE 1% CRM 30 GM TUBE EXT PRN (10:51)
--- NOTE | 2019-07-05 10:55 | Hospitalist Progress Note ---
Date of Service July 05, 2019 Assessment & Plan (1) Cellulitis of both lower extremities: Patient is eager to go home. Will start tomorrow Dalvance 1500 mg x 1 followed by 500 mg a week later. regional branch manager already scheduled appointments. Patient with also follow-up with wound clinic within an next 2 weeks. Follow-up with primary care physician within 1 week. (2) Acquired claw toe of right foot: As above (3) Lactic acidosis: Improved (4) Diabetes mellitus with diabetic polyneuropathy: -Sugar control currently adequate, continue current glycemic management - A1C was 8.1, previously 7.3. -Continued pharmacy consult for glycemic management. (5) Atrial fibrillation: Rate controlled, anticoagulated (6) Chronic venous stasis: As above noted, while she presented with concern on bilateral lower extremity cellulitis, the leg skin changes improved so quickly it almost had to all be just venous stasis changes. Continue local wound care. We did extensive discussions on her "reaction" to moisturizersit seems that it is probably more just that putting moisturizer on broken skin stings. We discussed that she could disapprove her allergy by putting a small streak of Eucerin on intact skin such as the extensor surface of her forearm, and if she had no reaction, then she would know that the reaction was simply irritation from moisturizer on broken skin. Either way, the steroid ointment seems to be helping, we discussed that this cannot be used indefinitely as it can lead to thinning of the skin, but it would probably be safe to use for a few more days (arbitrarily may be 5 days total), and then change to a petroleum-based moisturizer such as Aquaphor. She definitely would benefit from ongoing compression, and is willing to do so. (7) COPD (chronic obstructive pulmonary disease): Continue Brovana, Flovent HFA with Albuterol prn. Appears to have chronic respiratory failure requiring O2, continue No acute symptoms (8) Chronic diastolic (congestive) heart failure: Most recent TTE in Oct 2016 with EF 55-60%, moderate LVH and mildly reduced right ventricular systolic function. Chronically requires 3L via [place] at home; currently on baseline oxygen. Monitor daily weights and net I/Os. Continue Bumex 2 mg PO BID. Continue Metoprolol. Appearing euvolemic and asymptomatic (9) Hyperlipidemia: Continue statin as prescribed. (10) Hypertension: Readings are overall acceptable, continue current medications (11) Hypothyroidism: Continue Levothyroxine 50 mcg daily. TSH was 3.03 in December 2018. (12) PAD (peripheral artery disease): Arterial duplex showed high grade stenosis of bilat lower extremities. Consulted vascular surgery during previous admission, no surgical intervention indicated. added asa 81mg daily, on atorvastatin 40mg (13) Morbid obesity: - BMI 53.8. (14) DVT prophylaxis: - Continue home Xarelto. Subjective Patient seen and examined at the bedside. Patient eager to go home. Patient developed heat rash last night and her back which improved with Benadryl and Vistaril and topical creams. Patient is going to follow-up with wound clinic and start tomorrow at 1 PM Dalvance set [id number] mg x 1, followed by 500 mg a week later. Her manager functional stated that it has been approved and appointments were set it up. Slowly improving. Patient denies fever chills chest pain shortness of breath abdominal pain frequency urgency. Plan to discharge home tomorrow. Review of Systems Review of Systems: All systems reviewed & are unremarkable except as noted in HPI & below Physical Exam Constitutional: WD/WN, vitals as above well developed Eyes: PERRL, conjunctivae normal, anicteric sclerae ENMT: external ear and nose normal, oropharynx normal Neck: trachea midline, no thyromegaly Respiratory: normal respiratory effort, lungs clear to auscultation Cardiovascular: RRR, no murmur, no edema Gastrointestinal (Abdomen): normal bowel sounds, soft, nontender, no hepatosplenomegaly Skin: + dry skin and + skin hypertrophy Neurologic: patellar DTR's 2+ bilat, sensation intact Psychiatric: A+Ox3, euthymic affect Lymphatic: no cervical or axillary lymphadenopathy Results & Data Vital Signs (Past 12 Hours) Vital Signs Temp Pulse Pulse Pulse Resp BP Pulse Ox 07/05/19 09:31 73 157/84 H 07/05/19 08:12 37 C 75 16 164/61 H 91 07/05/19 07:36 73 18 94 07/05/19 00:51 66 162/64 H PG Care Time/CCT Total # of Minutes Spent Total Time Spent with Patient: Total time spent is greater than 50% in coordination of care (as documented) at patient's floor/unit and/or counseling patient: (1) Diabetes mellitus with diabetic polyneuropathy Diabetes mellitus longterm insulin use: unspecified terminologist insulin use status Diabetes mellitus type: type 2 Qualified Code(s): E11.42 - Type 2 diabetes mellitus with diabetic polyneuropathy
[2019-07-05] MEDS ORDERED: DiphenhydrAMINE 2%/ZINC 0.1% CREAM 28GM TUBE EXT SCH (11:00)
--- NOTE | 2019-07-05 15:28 | Discharge Summary ---
Date of Service July 05, 2019 Admission HPI Per Admitting Provider Mrs. Arellano is a 73 year old female with past medical history of DM, A. fib, HTN, Chronic Diastolic HF, Chronic Venous stasis, COPD, HLD, Hypothyroidism, PAD, Morbid obesity who presented with worsening cellulitis. Pt. was admitted from Jun 21 to Jun 25 for LE cellulitis; she received Ceftriaxone and Dapto as an inpatient. Pt. was instructed to take a course of Doxycycline PO as an outpt and follow up with the wound clinic. She developed increased redness at home along with increased redness of right 2nd and third toes. Pt. also had "seeping" of bilat LE -- optifoam dressing did not stay intact due to discharge. Had chills this morning, did not take her temperature to evaluate for a fever. Denies chest pain, SOB, headache, vision changes, N/V, constipation or diarrhea, dysuria or hematuria. ER course: She received dose of Ceftriaxone and Dapto in the ER. Will be admitted for IV abx and ID consult. Principal Diagnosis none Discharge Exam Constitutional WD/WN, vitals as above well developed Eyes PERRL, conjunctivae normal, anicteric sclerae ENMT external ear and nose normal, oropharynx normal Neck trachea midline, no thyromegaly Respiratory normal respiratory effort, lungs clear to auscultation Cardiovascular RRR, no murmur, no edema Gastrointestinal (Abdomen) normal bowel sounds, soft, nontender, no hepatosplenomegaly Skin + dry skin (Clinically improved dry skin and ulcers located in the lower extremities bilaterally. No open wounds. All lesions healed pretty nicely.) and + skin hypertrophy Neurologic patellar DTR's 2+ bilat, sensation intact Psychiatric A+Ox3, euthymic affect Lymphatic no cervical or axillary lymphadenopathy Discharge Data Allergies Allergy/AdvReac Type Severity Reaction Status Date / Time Penicillins Allergy Intermediate HIVES Verified 06/27/19 18:06 mineral oil Allergy Unknown Unverified 06/27/19 18:06 metronidazole AdvReac Unknown NAUSEA Verified 06/27/19 18:06 ceresin [From Eucerin] AdvReac Redness of Verified 06/27/19 18:06 Skin emollient combination no.33 AdvReac Redness of Verified 06/27/19 18:06 [From Eucerin] Skin isopropyl myristate AdvReac Redness of Verified 06/27/19 18:06 [From Eucerin] Skin lanolin alcohols AdvReac Redness of Verified 06/27/19 18:06 [From Eucerin] Skin mineral oil [From Eucerin] AdvReac Redness of Verified 06/27/19 18:06 Skin soap [From Eucerin] AdvReac Redness of Verified 06/27/19 18:06 Skin water [From Eucerin] AdvReac Redness of Verified 06/27/19 18:06 Skin Consultations 06/27/19 18:39 ED Decision to Admit Stat 06/27/19 20:31 Consult Infectious Diseases Routine Ordered Studies 06/27/19 16:34 CT foot RT wo con Stat Hospital Course (1) Cellulitis of both lower extremities: Patient is eager to go home. Will start tomorrow Dalvance 1500 mg x 1 followed by 500 mg a week later. pre owned sales manager already scheduled appointments. Patient with also follow-up with wound clinic within an next 2 weeks. Follow-up with primary care physician within 1 week. (2) Acquired claw toe of right foot: As above (3) Lactic acidosis: Improved (4) Diabetes mellitus with diabetic polyneuropathy: -Sugar control currently adequate, continue current glycemic management - A1C was 8.1, previously 7.3. -Continued pharmacy consult for glycemic management. (5) Atrial fibrillation: Rate controlled, anticoagulated (6) Chronic venous stasis: As above noted, while she presented with concern on bilateral lower extremity cellulitis, the leg skin changes improved so quickly it almost had to all be just venous stasis changes. Continue local wound care. We did extensive discussions on her "reaction" to moisturizersit seems that it is probably more just that putting moisturizer on broken skin stings. We discussed that she could disapprove her allergy by putting a small streak of Eucerin on intact skin such as the extensor surface of her forearm, and if she had no reaction, then she would know that the reaction was simply irritation from moisturizer on broken skin. Either way, the steroid ointment seems to be helping, we discussed that this cannot be used indefinitely as it can lead to thinning of the skin, but it would probably be safe to use for a few more days (arbitrarily may be 5 days total), and then change to a petroleum-based moisturizer such as Aquaphor. She definitely would benefit from ongoing compression, and is willing to do so. (7) COPD (chronic obstructive pulmonary disease): Continue Brovana, Flovent HFA with Albuterol prn. Appears to have chronic respiratory failure requiring O2, continue No acute symptoms (8) Chronic diastolic (congestive) heart failure: Most recent TTE in Oct 2016 with EF 55-60%, moderate LVH and mildly reduced right ventricular systolic function. Chronically requires 3L via NC at home; currently on baseline oxygen. Monitor daily weights and net I/Os. Continue Bumex 2 mg PO BID. Continue Metoprolol. Appearing euvolemic and asymptomatic (9) Hyperlipidemia: Continue statin as prescribed. (10) Hypertension: Readings are overall acceptable, continue current medications (11) Hypothyroidism: Continue Levothyroxine 50 mcg daily. TSH was 3.03 in December 2018. (12) PAD (peripheral artery disease): Arterial duplex showed high grade stenosis of bilat lower extremities. Consulted vascular surgery during previous admission, no surgical intervention indicated. added asa 81mg daily, on atorvastatin 40mg (13) Morbid obesity: - BMI 53.8. (14) DVT prophylaxis: - Continue home Xarelto. Total Time Total Time Spent Total Time Spent (In Minutes): over 30 min Discharge Plan Discharge Items Patient Disposition: Home - Self-Care Reason For Visit: CELLULITIS Discharge Diagnosis: Cellulitis and lymphedema of the lower extermities Condition on Discharge: Good Activity: As commented below Lifting: Gradually increase as tolerated Non-emergency contact: Primary Care Provider Call non-emergency contact if: you have any medication questions, your symptoms worsen, your pain is not controlled, your pain is worsening, your pain is unusual for you and your temperature is above 101 Follow-up/Referrals: [facility] [Provider Group] - 07/08/19 1:40 pm (Please, follow up at [facility] on SaturdayJuly 08 at 1:40 pm. The clinic is located at [address] in [place]. If you need to change this appointment, call the clinic at [phone].) Maxine Roberts MD [Primary Care Provider] - 07/10/19 10:00 am (Please, follow up at [facility] with Dr. Roberts on SaturdayJuly 10 at 10:00 am. *If you need to change this appointment, call their office at [phone]. ) Diet: Carb Consistent or DM2, Heart Healthy and Low Sodium (2gm) Addtl Attending Provider Instructions: Follow-up with your primary care physician within 1 week. Please follow-up instructions and appointments for your antibiotic Dalvance set [id number] mg x 1, followed by 500 mg a week later that is going to be given to you at [facility] as already arranged at 1 PM on Saturday. Please continue following with the wound care clinic per your appointment schedules. For the heat rash at your back please apply some Benadryl cream and hydrocortisone 1% cream twice a day as needed for itching rash. You can also take Vistaril 10 mg p.o. every 4 hours as needed for itch and allergy. Pending Studies at Discharge: No Stand-Alone Forms: My [facility] Medications and DC Order Prescriptions: New Anti-Itch(diphenhyd) with Zinc 2-0.1 % Cream 1 applic EXT Q6H PRN (Reason: itch) Qty: 30 RF: 0 triamcinolone acetonide 0.1 % lotion 1 appln TOP DAILY PRN (Reason: itch) Qty: 60 RF: 0 hydroxyzine HCl 10 mg tablet 10 mg PO TID PRN (Reason: itching) Qty: 20 RF: 0 Continued potassium chloride 10 mEq capsule, extended release 10 meq PO QAM Qty: 90 RF: 1 OneTouch Ultra Blue Test Strip strip .ROUTE .MEDSUPPLY Qty: 50 RF: 3 pen needle, diabetic [BD Ultra-Fine Micro Pen Needle] 32 gauge x 1/4" needle .ROUTE .MEDSUPPLY Qty: 50 RF: 0 Oxygen Home Liters Per Minute .ROUTE .MEDSUPPLY Qty: 1 RF: 0 alprazolam 0.5 mg tablet 0.5 mg PO QPM PRN (Reason: anxiety) Qty: 30 RF: 0 albuterol sulfate 2.5 mg /3 mL (0.083 %) solution for nebulization 2.5 mg inhalation .COMPLEX PRN (Reason: shortness of breath or wheezing) RF: 0 diltiazem HCl 240 mg capsule,extended release 24hr 240 mg PO QAM RF: 0 metformin 500 mg Tablet 500 mg PO HS RF: 0 metformin 500 mg tablet 1,000 mg PO QAM RF: 0 insulin lispro [Humalog KwikPen Insulin] 100 unit/mL insulin pen 5 unit subcut DAILY@1200 RF: 0 atorvastatin 40 mg tablet 40 mg PO DAILY@1800 RF: 0 bumetanide 2 mg tablet 2 mg PO BID RF: 0 metoprolol succinate 100 mg tablet extended release 24 hr 150 mg PO QAM RF: 0 acetaminophen [Tylenol Extra Strength] 500 mg Tablet 500 mg PO Q4H PRN (Reason: Pain) RF: 0 albuterol sulfate 90 mcg/actuation HFA aerosol inhaler 1 - 2 puff Inhalation Q4H PRN (Reason: Shortness Of Breath Or Wheezing) RF: 0 Flovent HFA 110 mcg/actuation Hfa Aerosol Inhaler 1 puff INHALATION BID RF: 0 Brovana 15 mcg/2 mL Solution For Nebulization 15 mcg INHALATION AMPM RF: 0 cholecalciferol (vitamin D3) [Vitamin D3] 2,000 unit Tablet 2,000 units PO DAILY@1200 RF: 0 Xarelto 15 mg Tablet 15 mg PO DAILY@1800 RF: 0 magnesium oxide 400 mg magnesium Tablet 400 mg PO DAILY@1200 RF: 0 Humulin 70/30 U-100 KwikPen 100 unit/mL (70-30) insulin pen 82 unit subcut QAM RF: 0 Humulin 70/30 U-100 KwikPen 100 unit/mL (70-30) Insulin Pen 85 unit SUBCUT HS RF: 0 allopurinol 100 mg tablet 100 mg PO DAILY@1800 RF: 0 levothyroxine 50 mcg tablet 50 mcg PO QAM RF: 0 nystatin 100,000 unit/gram powder 1 appln TOP DAILY RF: 0 Changed triamcinolone acetonide 0.5 % cream 1 applic topical BID PRN (Reason: itch) Qty: 0 RF: 0 Discharge Orders: Discharge Order (Routine); Ordered 07/05/19 Ordered By: Jan Kaur Admission Data Admit Date/Time: 06/27/19 19:10 Attending Provider: Jan Kaur Admit Provider: Marlin Villegas Primary Care Provider: Maxine Roberts Other Providers: Marlin Villegas ; Alina Can ; Emerson Wylie Other Interventions: Discharge Summary Assessment (RN) Last Done: 07/05/19 14:32 DC Date/Time DO NOT enter until pt leaves facility: 07/05/19 14:59
== END 2019-07-05 14:59 | disposition home or self-care (01) | DRG 603 ==
LOC: ED 16:26 → 3N 19:10 → SUATTDRO 19:10 → 3N 20:04

== ENCOUNTER 2019-10-05 15:46 | Inpatient (IN) ==
[2019-10-05 16:24] LABS: Basophils # (auto) 0.04 K/uL (0-0.2); Basophils % (auto) 0.6 %; Eosinophils # (auto) 0.08 K/uL (0-0.5); Eosinophils % (auto) 1.1 %; Hematocrit (blood only) 40.5 % (37-47); Hemoglobin 13.3 g/dL (12.0-16.0); Immature Granulocytes # (auto) 0.01 K/uL (0.00-0.02); Immature Granulocytes % (auto) 0.1 %; Lymphocytes # (auto) 1.33 K/uL (1.2-3.4); Lymphocytes % (auto) 18.5 %; Mean Corpuscular Hemoglobin 29.3 pg (25-34); Mean Corpuscular Hgb Conc 32.8 g/dL (32-36); Mean Corpuscular Volume 89.2 fL (80-100); Mean Platelet Volume 9.5 fL (7.4-10.4); Monocytes # (auto) 0.49 K/uL (0.11-0.59); Monocytes % (auto) 6.8 %; Neutrophils # (auto) 5.25 K/uL (1.4-6.5); Neutrophils % (auto) 72.9 %; Platelet Count 178 K/uL (130-400); RDW Coefficient of Variation 15.9 % (11.5-14.5); RDW Standard Deviation 51.6 fL (36.4-46.3); Red Blood Count 4.54 M/uL (4.2-5.4)
--- NOTE | 2019-10-05 16:36 | XRay Report ---
XR chest 1V portable CLINICAL HISTORY: chest pain dyspnea COMPARISON STUDY: 01/05/2019 FINDINGS: Moderate cardiomegaly. Small right pleural effusion. Prominent pulmonary vasculature. IMPRESSION: Congestive heart failure. ACT 112: Negative or not required by law. The above report was generated using voice recognition software. It may contain grammatical, syntax or spelling errors. Electronically signed by: Richie Bwoen M.D. 10/05/2019 4:35 PM
[2019-10-05 16:40] LABS: Alanine Aminotransferase 46 U/L (12-78); Albumin Level 3.4 gm/dl (3.4-5.0); Aspartate Aminotransferase 32 U/L (15-37); BUN Creatinine Ratio 18.7 (10-20); Blood Urea Nitrogen 22 mg/dl (7-18); Calcium 9.1 mg/dl (8.5-10.1); Carbon Dioxide 33 mmol/L (21-32); Chloride 99 mmol/L (98-107); Creatinine Clr Calc Pharmacy 58.1 ml/min; Est GFR (African American) 53.9; Est GFR (Non-African American) 46.5; Glucose 182 mg/dl (70-99); Lipase 147 U/L (73-393); Magnesium 1.9 mg/dl (1.8-2.4); Potassium 3.9 mmol/L (3.5-5.1); Sodium 137 mmol/L (136-145)
[2019-10-05 16:51] LABS: Albumin Globulin Ratio 0.9 (0.9-2); Alkaline Phosphatase 146 U/L (45-117); Bilirubin,Total 0.6 mg/dl (0.2-1); NT Pro B Type Natriuretic Pept 529 pg/ml (0-900); Total Protein 7.4 gm/dl (6.4-8.2); Troponin I < 0.015 ng/ml (0-0.045)
[2019-10-05 17:21] LABS: Appearance Urine Clear (Clear); Bacteria Urine Automated Negative (Negative); Bilirubin Urine Negative (Negative); Blood Urine Trace (Negative); Color Urine Yellow; Epithelial Cell Urine Auto >30 /lpf (0-5); Glucose Urine UA Negative (Negative); Ketones Urine Trace (Negative); Leukocyte Esterase Urine Trace (Negative); Nitrite Urine Negative (Negative); Protein Urine 2+ (Negative); RBC Urine Automated 0-4 /hpf (0-4); Specific Gravity Urine 1.022 (1.000-1.030); Urobilinogen Urine Negative (Negative)
[2019-10-05] MEDS ORDERED: POTASSIUM CHLORIDE 20 MEQ TABCR PO STA (18:29)
[2019-10-05] MEDS ORDERED: BUMETANIDE 2 MG in SYRINGE 0 ML IV ONE (18:29)
--- NOTE | 2019-10-05 20:51 | History & Physical Report ---
Date of Service October 05, 2019 Assessment & Plan (1) Acute exacerbation of congestive heart failure: Admit to PCU on telemetry Vital signs every 4 hours Patient is at home on Bumex 2 mg p.o. twice daily We will switch to furosemide 40mg IV twice daily Titrate up as needed to achieve net negative diuresis at least 1 to 1.5 L daily. Strict in and out Daily weight Monitor monitor electrolytes and replenish Potassium 40 mg p.o. every morning DVT prophylaxis patient is on Xarelto for paroxysmal A. fib's, continue Xarelto. Full code Present on Admission?: Yes (2) Acute and chronic respiratory failure: Continue supplemental oxygen and keep oxygenation above 92% Continue home setting CPAP Continue albuterol sulfate 90 MCG's 2 puffs every 4 hours as needed HFA 1 puff inhalation twice daily Present on Admission?: Yes (3) Dyspnea: Likely due to volume overload. Continue management as discussed above. Present on Admission?: Yes (4) Hyperlipidemia: Continue home medicine atorvastatin 40 mg p.o. daily. Present on Admission?: Yes (5) Hypertension: Blood pressure is mildly elevated in the emergency room. Continue diltiazem 240 mg p.o. every morning, furosemide 40 mg IV twice daily. Hydralazine 10 mg p.o. 4 times daily as needed for systolic blood pressure above 160 and diastolic above 90. Present on Admission?: Yes (6) Obstructive sleep apnea: Continue home CPAP Present on Admission?: Yes (7) Diabetes mellitus with diabetic polyneuropathy: Hold metformin while patient is in the hospital to prevent hypoglycemia and possible kidney injury while patient is in the hospital and instead use sliding scale insulin, Accu-Cheks before meals and at bedtime. Glycemic control per pharmacy. Present on Admission?: Yes (8) COPD (chronic obstructive pulmonary disease): Continue inhalers as already discussed. Present on Admission?: Yes (9) Atrial fibrillation: Patient has paroxysmal A. fib's ,patient is not in A. fib right now. Continue diltiazem 240 mg p.o. every morning. Continue Xarelto 15 mg p.o. daily. Continue potassium chloride 40 mg p.o. daily Continue metoprolol succinate 150 mg p.o. daily. Present on Admission?: Yes History of Present Illness Chief Complaint: Shortness of breath Primary Care Provider: Maxine Roberts MD The patient is a 74 years old female with past medical history of chronic diastolic congestive heart failure, COPD, chronic respiratory failure with hypoxia on 2 L of oxygen at home, diabetes mellitus type 2 with polyneuropathy, hypertension, hyperlipidemia, atrial fibrillation, hypothyroidism who presented with a shortness of breath for 2 days. Patient denies gaining any weight and reported taking her medicine regularly. Patient denies fever, chills, chest pain, abdominal pain, frequency, urgency. EKG shows sinus rhythm with first- degree AV block and premature atrial complexes with nonspecific ST abnormality in V4 V5 and V6 and QT interval of 406/456. Labs are reviewed which shows sodium 137, potassium 3.9, chloride 99, anion gap 5, BUN 22, creatinine 1.15, GFR 46.6, glucose 182, calcium 9.1, magnesium 1.9, total bilirubin 0.6, AST 32, ALT 46, alkaline phosphatase 146, troponin 0.015, BNP 529, total protein 7.4, albumin 3.4, globulin 4 lipase 147, TSH 2.8. Urine yellow, urine protein 2+, urine ketones high trace, urine blood high trace, leukocyte esterase trace, negative urine nitrates, negative urine bacteria. Positive epithelial cells. Chest x-ray shows congestive heart failure, more moderate cardiomegaly, small right pleural effusion, prominent pulmonary vasculature. Decision was made to admit patient to PCU on telemetry for acute exacerbation of congestive heart failure with right pleural effusion and edema. Allergies Allergy/AdvReac Type Severity Reaction Status Date / Time Penicillins Allergy Intermediate HIVES Verified 10/05/19 16:43 mineral oil Allergy Unknown Verified 10/05/19 16:43 metronidazole AdvReac Unknown NAUSEA Verified 10/05/19 16:43 ceresin [From Eucerin] AdvReac Redness of Verified 10/05/19 16:43 Skin emollient combination no.33 AdvReac Redness of Verified 10/05/19 16:43 [From Eucerin] Skin isopropyl myristate AdvReac Redness of Verified 10/05/19 16:43 [From Eucerin] Skin lanolin alcohols AdvReac Redness of Verified 10/05/19 16:43 [From Eucerin] Skin mineral oil [From Eucerin] AdvReac Redness of Verified 10/05/19 16:43 Skin soap [From Eucerin] AdvReac Redness of Verified 10/05/19 16:43 Skin water [From Eucerin] AdvReac Redness of Verified 10/05/19 16:43 Skin Home Medications Home Medications Medication Instructions Recorded Confirmed Type Flovent HFA 1 puff INHALATION BID 09/18/18 10/05/19 History Xarelto 15 mg PO DAILY@1800 09/18/18 10/05/19 History acetaminophen [Tylenol Extra 500 mg PO Q4H PRN 09/18/18 10/05/19 History Strength] bumetanide 2 mg PO BID 09/18/18 10/05/19 History cholecalciferol (vitamin D3) 2,000 units PO DAILY@1200 09/18/18 10/05/19 History [Vitamin D3] magnesium oxide 400 mg PO DAILY@1200 09/18/18 10/05/19 History diltiazem HCl 240 mg PO QAM 10/06/18 10/05/19 History Oxygen Home #1 ea 04/03/19 09/28/19 History pen needle, diabetic 32 gauge x #50 ea 04/03/19 09/28/19 History 1/4" albuterol sulfate 2.5 mg INHALATION .COMPLEX PRN ml 04/24/19 10/05/19 History blood sugar diagnostic #50 ea 05/15/19 09/28/19 Rx insulin lispro [Humalog KwikPen 5 unit SUBCUT DAILY@1200 06/21/19 10/05/19 History Insulin] Humulin 70/30 U-100 KwikPen 82 unit SUBCUT QAM 06/27/19 10/05/19 History Humulin 70/30 U-100 KwikPen 85 unit SUBCUT HS 06/27/19 10/05/19 History levothyroxine 50 mcg PO QAM 06/27/19 10/05/19 History diphenhydramine-zinc acetate 1 applic EXT Q6H PRN #30 g 07/05/19 10/05/19 Rx [Anti-Itch(diphenhyd) with Zinc] metformin 500 mg tablet 500 mg PO TID tab 07/10/19 10/05/19 History atorvastatin 40 mg tablet 40 mg PO DAILY #90 tab 07/20/19 10/05/19 Rx metoprolol succinate 100 mg 150 mg PO DAILY #135 tab 07/20/19 10/05/19 Rx tablet,extended release 24 hr nystatin 100,000 unit/gram topical See Rx Instructions .ROUTE 08/28/19 10/05/19 Rx powder .COMPLEX #60 gram albuterol sulfate 90 mcg/actuation 1 - 2 puff INHALATION Q4H PRN #18 09/01/19 10/05/19 Rx aerosol inhaler gm allopurinol 100 mg tablet 100 mg PO DAILY@1800 #90 tab 09/01/19 10/05/19 Rx potassium chloride 10 mEq 10 meq PO QAM #90 cap 10/05/19 10/05/19 Rx capsule,extended release Past Med/Surg History Medical History Acquired claw toe of left foot Acquired claw toe of right foot (Chronic) Acquired lymphedema (Inactive) Anxiety (Inactive) Anxiety (Chronic) Atrial fibrillation Atrial flutter (Inactive) Basal cell carcinoma, face Callus (Inactive) CHF (congestive heart failure) (Inactive) CKD (chronic kidney disease) stage 3, GFR 30-59 ml/min COPD (chronic obstructive pulmonary disease) COPD (chronic obstructive pulmonary disease) (Chronic) Depression with anxiety Diabetes (Chronic) Diabetes mellitus with diabetic polyneuropathy Diabetic peripheral neuropathy Endometrial cancer (Resolved) Hirsutism Hyperlipidemia Hypertension Hypothyroidism Malignant neoplasm of corpus uteri (Inactive) Neuropathic ulcer of toe of right foot (Inactive) Obstructive sleep apnea Pleural effusion (Inactive) Sciatica (Inactive) Surgical History Hx of salpingo-oophorectomy, bilateral S/P hysterectomy (Chronic) S/P Mohs surgery for basal cell carcinoma (Acute) S/P thoracentesis (Inactive) Family History Father Coronary heart disease Myocardial infarction Mother Alzheimer disease Social History Preferred Language: Mohawk Communication Ability: Effective Visual Impairment: Limited Advertising Strategist Required: No Beliefs That Will Affect Care: None marital status: Current Living Situation: Spouse current occupational status: retired Feels Safe at Home: Yes Smoking Status: Never smoker Hx Alcohol Use: No Hx Substance Use: No Dental Care, Regularly: Yes Physical Activity Frequency: 1-2 Times per Week Sunscreen Use: No Review of Systems Review of Systems: All systems reviewed & are unremarkable except as noted in HPI & below Physical Exam Constitutional: WD/WN, vitals as above well developed and + morbidly obese Eyes: PERRL, conjunctivae normal, anicteric sclerae ENMT: external ear and nose normal, oropharynx normal Neck: trachea midline, no thyromegaly Respiratory: + respiratory distress, + labored breathing, + uses accessory muscles and + cough Auscultation: + crackles and + wheezes Cardiovascular: Heart Sounds: normal S1 and normal S2 Palpation: + palpable S3 and + palpable S4 Vessels: + JVD and dorsalis pedis pulses present Gastrointestinal (Abdomen): normal bowel sounds, soft, nontender, no hepatosplenomegaly Musculoskeletal: no cyanosis or clubbing, extremities motor strength 5/5 Skin: no rashes, warm and dry Neurologic: patellar DTR's 2+ bilat, sensation intact Psychiatric: A+Ox3, euthymic affect Lymphatic: no cervical or axillary lymphadenopathy Results & Data Vital Signs (Past 12 Hours) Vital Signs Temp Pulse Pulse Resp BP BP Pulse Ox 10/05/19 20:10 71 18 10/05/19 20:01 66 20 132/113 H 99 10/05/19 19:00 64 20 164/91 H 96 10/05/19 17:11 61 20 164/91 H 96 10/05/19 17:07 68 18 164/91 H 98 10/05/19 15:53 77 21 140/63 97 10/05/19 15:46 36.7 C 77 18 140/63 97 Code Status & VTE Plan Code Status Full code VTE Prophylaxis Plan VTE Prophylaxis will be ordered: Yes PG Care Time/CCT Total # of Minutes Spent Total Time Spent with Patient: Total time spent is greater than 50% in coordination of care (as documented) at patient's floor/unit and/or counseling patient: (1) Diabetes mellitus with diabetic polyneuropathy Diabetes mellitus type: type 2 Diabetes mellitus care home insulin use: unspecified care home insulin use status Qualified Code(s): E11.42 - Type 2 diabetes mellitus with diabetic polyneuropathy
[2019-10-05] MEDS ORDERED: DEXTROSE 50% 50 ML SYRINGE IV PRN (21:43)
[2019-10-05] MEDS ORDERED: GLUCOSE 10 TABS/TUBE PO PRN (21:43)
[2019-10-05] MEDS ORDERED: ONDANSETRON INJ 2 MG/ML 2 ML VIAL IV PRN (21:43)
[2019-10-05] MEDS ORDERED: MAGNESIUM HYDROXIDE SUSP 30 ML UDC PO PRN (21:43)
[2019-10-05] MEDS ORDERED: FUROSEMIDE 40 MG/4 ML VIAL IV SCH (21:43)
[2019-10-05] MEDS ORDERED: CARBOHYDRATES FOR HYPOGLYCEMIA PO PRN (21:43)
[2019-10-05] MEDS ORDERED: DiphenhydrAMINE 2%/ZINC 0.1% CREAM 28GM TUBE EXT PRN (21:43)
[2019-10-05] MEDS ORDERED: ALUMINUM/MAGNESIUM SUSP 30 ML UDC PO PRN (21:43)
[2019-10-05] MEDS ORDERED: GLUCAGON FOR INJ 1 MG VIAL SQ PRN (21:43)
[2019-10-05] MEDS ORDERED: ACETAMINOPHEN 325 MG TAB PO PRN (21:43)
[2019-10-05] MEDS ORDERED: POLYETHYLENE (MIRALAX) 17 GM PACK PO PRN (21:43)
[2019-10-05] MEDS ORDERED: GLUCOSE 40% GEL 15 GM TUBE PO PRN (21:43)
[2019-10-05] MEDS ORDERED: ALBUTEROL HFA 8 GM INHALER INH PRN (21:43)
[2019-10-05] MEDS ORDERED: PHARMACY GLYCEMIC MGMT CONSULT PRN (21:53)
[2019-10-05] MEDS ORDERED: INSULIN HUMAN NPH SC STA (22:14)
[2019-10-05] MEDS: INSULIN ASPART 100 UNITS/ML VIAL SC SCH (22:59)
[2019-10-05] MEDS: FUROSEMIDE 40 MG in SYRINGE 0 ML IV SCH (23:05)
[2019-10-06] MEDS: INSULIN ASPART 100 UNITS/ML VIAL SC SCH ×6 (00:58→20:35)
[2019-10-06] MEDS: ALBUTEROL 0.083% NEBU SOLN 3 ML VIAL INH PRN ×2 (02:52→13:59)
[2019-10-06] MEDS: LEVOTHYROXINE SODIUM 50 MCG TABLET PO SCH (06:14)
--- NOTE | 2019-10-06 06:21 | Electrocardiogram Report ---
Test Reason : Blood Pressure : / mmHG Vent. Rate : 076 BPM Atrial Rate : 076 BPM P-R Int : 274 ms QRS Dur : 098 ms QT Int : 406 ms P-R-T Axes : 032 -39 069 degrees QTc Int : 456 ms Poor data quality, interpretation may be adversely affected Sinus rhythm with 1st degree A-V block with Premature atrial complexes vs atrial flutter with variab le AV block Left axis deviation Low voltage QRS Nonspecific ST abnormality Abnormal ECG When compared with ECG of 21-JUN-2019 21:56, Rhythm on prior ECG clearly sinus Confirmed by Gerard Durbin ([id number]) on 10/06/2019 6:21:07 AM Referred By: Confirmed By:Gerard Durbin
[2019-10-06 07:06] LABS: Basophils # (auto) 0.05 K/uL (0-0.2); Basophils % (auto) 0.8 %; Eosinophils # (auto) 0.15 K/uL (0-0.5); Eosinophils % (auto) 2.4 %; Hematocrit (blood only) 39.6 % (37-47); Immature Granulocytes # (auto) 0.01 K/uL (0.00-0.02); Immature Granulocytes % (auto) 0.2 %; Lymphocytes # (auto) 1.55 K/uL (1.2-3.4); Lymphocytes % (auto) 24.3 %; Mean Corpuscular Hemoglobin 29.5 pg (25-34); Mean Corpuscular Hgb Conc 32.8 g/dL (32-36); Mean Platelet Volume 9.8 fL (7.4-10.4); Monocytes # (auto) 0.64 K/uL (0.11-0.59); Neutrophils # (auto) 3.97 K/uL (1.4-6.5); Neutrophils % (auto) 62.3 %; Platelet Count 176 K/uL (130-400); RDW Coefficient of Variation 15.9 % (11.5-14.5); RDW Standard Deviation 52.2 fL (36.4-46.3); White Blood Count 6.37 K/uL (4.8-10.8)
[2019-10-06] MEDS: FLUTICASONE FUROATE 200MCG 14 PUFFS/INHALER INH SCH (07:40)
[2019-10-06 07:41] LABS: Albumin Level 3.3 gm/dl (3.4-5.0); BUN Creatinine Ratio 19.3 (10-20); Calcium 9.2 mg/dl (8.5-10.1); Creatinine Clr Calc Pharmacy 62.4 ml/min; Est GFR (African American) 58.8; Est GFR (Non-African American) 50.7; Potassium 4.1 mmol/L (3.5-5.1)
[2019-10-06] MEDS: POTASSIUM CHLORIDE 20 MEQ TABCR PO SCH (07:41)
[2019-10-06] MEDS: METOPROLOL SUCC 50MG EXT REL TAB PO SCH (07:42)
[2019-10-06] MEDS: dilTIAZem HCL 240 MG CAPCR PO SCH (07:43)
[2019-10-06 07:44] LABS: Albumin Globulin Ratio 0.9 (0.9-2); Bilirubin,Total 0.6 mg/dl (0.2-1); Globulin 3.7 gm/dl (2.5-4.0)
[2019-10-06] MEDS: ATORVASTATIN 40 MG TAB PO SCH (07:44)
[2019-10-06] MEDS: FUROSEMIDE 40 MG in SYRINGE 0 ML IV SCH (07:44)
[2019-10-06 08:12] LABS: Estimated Average Glucose 174 mg/dl; Hemoglobin A1C 7.7 % (4.5-5.6)
[2019-10-06] MEDS: NYSTATIN POWDER 15GM BTL EXT SCH ×3 (08:51→20:35)
[2019-10-06] MEDS ORDERED: POTASSIUM CHLORIDE 10 MEQ TABCR PO SCH (09:00)
[2019-10-06] MEDS ORDERED: INSULIN HUMAN NPH SC STA (09:15)
--- NOTE | 2019-10-06 15:08 | Pharmacy Report ---
Glycemic Control Consultation - Date of Service October 06, 2019 - Scope Scope: Glycemic Pharmacist consulted by Dr Kaur on 10/05 for glycemic control and to write orders per [facility] inpatient glycemic control protocol - Objective Weight: 142.5 kg Accuchecks BSG (last 24hrs): 10/05/19 10/05/19 10/06/19 16:10 22:11 00:53 Glucose 182 H POC Glucose 220 H 132 H 10/06/19 10/06/19 10/06/19 04:15 06:24 07:30 Glucose 88 POC Glucose 91 100 H 10/06/19 11:29 Glucose POC Glucose 113 H Laboratory Data (last 24hrs): 10/05/19 10/06/19 16:10 06:24 Potassium 3.9 4.1 Carbon Dioxide 33 H 36 H Anion Gap 5.0 4.0 Creatinine 1.15 1.07 Est Cr Clr Drug Dosing 58.1 62.4 HbA1c: Hemoglobin A1c 7.7 % (4.5-5.6) H 10/06/19 06:24 - Recent Pertinent Medications Outpatient Anti-diabetic Regimen: * Humulin 70/30 insulin 82 units in AM and 85 in evening, humulog 5 units at lunch, metformin * A1c = 7.7 % 10/06 Risk Factors for Insulin Resistance: * Diet: T2DM - Assessment & Plan Assessment & Plan: ASSESSMENT: * 74 year old female admitted with COPD. Pharmacy consulted for glycemic management. Known to our service from other admissions * Will utilize similar dosing from prior admissions with NPH and novolog * Patient appears to have decreased appetite on admission - will scale back with NPH dosing PLAN FOR INPATIENT GLYCEMIC CONTROL: * Holding outpatient oral diabetes medications * Basal insulin * NPH - 35 this AM * NPH with dinner based on scale 25-35 units based upon BSG * Bolus insulin * NovoLog per scale ACHS or Q6hrs while NPO * Goal Range: Low 110 mg/dL - High 140 mg/dL * Correction Factor: 10 mg/dL/unit * Nutritional / Prandial insulin per carb ratio of 1 unit per 4 grams CHO consumed * Please note that the plan above was derived based on current level of insulin resistance and hospital stress. These recommendations are appropriate for inpatient admission only. Plan of care upon discharge will need to be reassessed to avoid potential outpatient hypo/hyperglycemia. Thank you.
[2019-10-06] MEDS: CHOLECALCIFEROL 1,000 UNITS 25 MCG TAB PO SCH (17:07)
[2019-10-06] MEDS: MAGNESIUM OXIDE 400 MG TAB PO SCH (17:08)
[2019-10-06] MEDS: INSULIN HUMAN NPH SC SCH (17:11)
[2019-10-06] MEDS: BUMETANIDE 4 MG in SYRINGE 0 ML IV SCH (17:14)
[2019-10-06] MEDS: RIVAROXABAN 15 MG TAB PO SCH (17:16)
[2019-10-06] MEDS: allopurinoL 100 MG TAB PO SCH (17:16)
--- NOTE | 2019-10-06 17:31 | Hospitalist Progress Note ---
Date of Service October 06, 2019 Assessment & Plan (1) Acute and chronic respiratory failure: - Possibly multifactorial - COPD Exacerbation vs Viral URI vs Acute CHF - Reports needing to use 5 L NC at home due to SOB and currently weaned back down to baseline 3 L - Treatment as discussed below (2) Acute exacerbation of congestive heart failure: - Acute on Chronic Diastolic CHF - possible; CXR does reveal fluid accumulation however assessing volume is difficult due to body habitus - Hold home Bumex 2 mg BID and use Bumex 4 mg IV BID - will reassess in AM to prevent dehydration as now back to baseline O2 - also states breathing treatments seem to help her SOB suggests possibly pulmonary source - Daily weights and I&Os - Consult Cardiology - appreciate input - patient also notes increasing palpitations and question some bursts of A Fib RVR? however on monitor she did have a short moment of HR at 39 but is in A Fib mostly in 60-70s (3) COPD (chronic obstructive pulmonary disease): - Question if this is more the underlying issue - symptoms improve with Nebs - Will schedule Duonebs with PRN use in between; Mucinex BID; Fluticasone daily - Discussed systemic steroids but she reports unfavorable symptoms on them - can hold on these and reassess (4) Obstructive sleep apnea: - STABLE - Continue CPAP (5) Atrial fibrillation: - Paroxysmal - was found in A Fib on monitor with rate 60-70s; patient reports she notices her A Fib more often lately and faster rates - Continue Diltiazem 240 mg daily, Metoprolol 150 mg daily; Xarelto 15 mg daily (may need to discuss this current dosing) (6) Hypertension: - Continue Diltiazem and Metoprolol; currently increased Bumex (7) Diabetes mellitus with diabetic polyneuropathy: Hold metformin while patient is in the hospital to prevent hypoglycemia and possible kidney injury while patient is in the hospital and instead use sliding scale insulin, Accu-Cheks before meals and at bedtime. Glycemic control per pharmacy. (8) Hyperlipidemia: - Continue Atorvastatin 40 mg daily Code Status: Discussed with patient. She would allow chest compressions and shock however does not want intubated/mechanical ventilation. Discussed scenario of acute decompensation in respiratory status if she would want intubated and she again declines wanting any form of ventilation. States her knows her wishes as well and have a living will. Asked if it could be brought in. - Changed to a conditional code Disposition: Pending symptom improvement plan to D/C home Subjective Reports she feels about the same since she came in. SOB is improved more with breathing treatments. She is urinating more then she has per her report. She is back to her baseline O2 which is 3 L. She does not recall dietary or issues that may have lead to increased fluid. She does report she has noticed her A Fib has been racing periodically at home. She states it makes her feel unwell but does subside on its own. She is tolerating a diet and verbalizes no new complaints at this time. Review of Systems Constitutional: + fatigue; no fever and no chills Ear, Nose, Mouth, Throat: no nasal congestion and no sore throat Respiratory: + cough, + chest congestion and + dyspnea; no sputum production Cardiovascular: + palpitations; no chest pain, no lightheadedness and no edema Gastrointestinal: no abdominal pain, no nausea, no vomiting, no constipation and no diarrhea/loose stools Genitourinary: no dysuria Integumentary: + wounds Physical Exam Constitutional: WD/WN, vitals as above no acute distress Eyes: + anicteric sclerae ENMT: Ears: no hearing impairment Neck: trachea midline and + thick neck Respiratory: normal respiratory effort Auscultation: + diminished lung sounds lung exam is slightly difficult to fully appreciate due to body habitus/positioning Cardiovascular: Rate/Rhythm: regular rate and + irregularly irregular Vessels: no JVD (but difficult to truly assess given habitus) Gastrointestinal (Abdomen): Inspection/Auscultation: normal bowel sounds Percussion/Palpation: abdomen soft; abdomen nontender Musculoskeletal: Head/Neck/Chest: normocephalic and head atraumatic Skin: largely warm/dry/without rash Results & Data Vital Signs (Past 12 Hours) Vital Signs Temp Pulse Resp BP Pulse Ox 10/06/19 15:19 36.3 C L 64 18 145/68 H 95 10/06/19 14:02 68 16 99 10/06/19 11:32 36.4 C L 64 19 152/52 H 100 10/06/19 07:34 36.4 C L 73 19 135/70 98 PG Care Time/CCT Total # of Minutes Spent Total Time Spent with Patient: Total time spent is greater than 50% in coordination of care (as documented) at patient's floor/unit and/or counseling patient: (1) Diabetes mellitus with diabetic polyneuropathy Diabetes mellitus termite helper insulin use: unspecified termite helper insulin use status Diabetes mellitus type: type 2 Qualified Code(s): E11.42 - Type 2 diabetes mellitus with diabetic polyneuropathy
[2019-10-06] MEDS: ALBUT/IPRATROP 3MG/0.5MG NEB 3 ML VIAL NEB SCH ×2 (19:17→23:02)
[2019-10-06] MEDS: guaiFENesin 600 MG TABCR PO SCH (20:35)
[2019-10-07] MEDS ORDERED: INSULIN ASPART 100 UNITS/ML VIAL SC SCH
[2019-10-07] MEDS: ALBUT/IPRATROP 3MG/0.5MG NEB 3 ML VIAL NEB SCH ×6 (02:21→23:34)
--- NOTE | 2019-10-07 03:17 | Emergency Department Note ---
Entered by Shirley Gtz acting as a scribe for History of Present Illness General Chief complaint: Chest Pain Stated complaint: CHEST PAIN, SOB Time Seen by Provider: 10/05/19 15:48 Source: patient Mode of arrival: EMS Limitations: no limitations History of Present Illness Onset (ago): week(s) 1 Location: chest Radiation: non-radiation Pain Consistency: + constant and + intermittent Relieved By: + other (Oxygen) Exacerbated By: + movement Associated symptoms: + nausea/vomiting (+nausea, -vomiting) and + other (+resolv ed jaw pain) Treatments prior to arrival: other (Oxygen) The patient is a 74 year old female who presents to the ED with complaints of intermittent chest pain and shortness of breath for the past 1 week. She was brought to the ED via EMS. Her breathing is worsened with exertion and she has a known history of atrial fibrillation. She states her pain feels similar to when she has experienced a-fib episodes. She notes she turned up her portable Oxygen to 5L today on her drive to the ED. She also admits to ongoing issues with cellulitis in her bilateral LE and follows with the local wound care clinic. She states its just been one thing after another in reference to her health issues. The patient also complains of nausea but has not vomited. This morning, she also experienced jaw pain but states it has resolved. Patient denies any other recent trauma or change in activity. Denies any recent sick contacts. Patient admits to history of COPD as well as congestive heart failure. Home Medications Home Medications Medication Instructions Recorded Confirmed Type Flovent HFA 1 puff INHALATION BID 09/18/18 10/05/19 History Xarelto 15 mg PO DAILY@1800 09/18/18 10/05/19 History acetaminophen [Tylenol Extra 500 mg PO Q4H PRN 09/18/18 10/05/19 History Strength] bumetanide 2 mg PO BID 09/18/18 10/05/19 History cholecalciferol (vitamin D3) 2,000 units PO DAILY@1200 09/18/18 10/05/19 History [Vitamin D3] magnesium oxide 400 mg PO DAILY@1200 09/18/18 10/05/19 History diltiazem HCl 240 mg PO QAM 10/06/18 10/05/19 History Oxygen Home #1 ea 04/03/19 09/28/19 History pen needle, diabetic 32 gauge x #50 ea 04/03/19 09/28/19 History 1/4" albuterol sulfate 2.5 mg INHALATION .COMPLEX PRN ml 04/24/19 10/05/19 History blood sugar diagnostic #50 ea 05/15/19 09/28/19 Rx insulin lispro [Humalog KwikPen 5 unit SUBCUT DAILY@1200 06/21/19 10/05/19 Histo ry Insulin] Humulin 70/30 U-100 KwikPen 82 unit SUBCUT QAM 06/27/19 10/05/19 History Humulin 70/30 U-100 KwikPen 85 unit SUBCUT HS 06/27/19 10/05/19 History levothyroxine 50 mcg PO QAM 06/27/19 10/05/19 History diphenhydramine-zinc acetate 1 applic EXT Q6H PRN #30 g 07/05/19 10/05/19 Rx [Anti-Itch(diphenhyd) with Zinc] metformin 500 mg tablet 500 mg PO TID tab 07/10/19 10/05/19 History atorvastatin 40 mg tablet 40 mg PO DAILY #90 tab 07/20/19 10/05/19 Rx metoprolol succinate 100 mg 150 mg PO DAILY #135 tab 07/20/19 10/05/19 Rx tablet,extended release 24 hr nystatin 100,000 unit/gram topical See Rx Instructions .ROUTE 08/28/19 10/05/19 Rx powder .COMPLEX #60 gram albuterol sulfate 90 mcg/actuation 1 - 2 puff INHALATION Q4H PRN #18 09/01/19 10/05/19 Rx aerosol inhaler gm allopurinol 100 mg tablet 100 mg PO DAILY@1800 #90 tab 09/01/19 10/05/19 Rx potassium chloride 10 mEq 10 meq PO QAM #90 cap 10/06/19 Rx capsule,extended release Allergies Allergy/AdvReac Type Severity Reaction Status Date / Time Penicillins Allergy Intermediate HIVES Verified 10/05/19 16:43 mineral oil Allergy Unknown Verified 10/05/19 16:43 metronidazole AdvReac Unknown NAUSEA Verified 10/05/19 16:43 ceresin [From Eucerin] AdvReac Redness of Verified 10/05/19 16:43 Skin emollient combination no.33 AdvReac Redness of Verified 10/05/19 16:43 [From Eucerin] Skin isopropyl myristate AdvReac Redness of Verified 10/05/19 16:43 [From Eucerin] Skin lanolin alcohols AdvReac Redness of Verified 10/05/19 16:43 [From Eucerin] Skin mineral oil [From Eucerin] AdvReac Redness of Verified 10/05/19 16:43 Skin soap [From Eucerin] AdvReac Redness of Verified 10/05/19 16:43 Skin water [From Eucerin] AdvReac Redness of Verified 10/05/19 16:43 Skin Past Med/Surg History Medical History Acquired claw toe of left foot Acquired claw toe of right foot (Chronic) Acquired lymphedema (Inactive) Anxiety (Inactive) Anxiety (Chronic) Atrial fibrillation Atrial flutter (Inactive) Basal cell carcinoma, face Callus (Inactive) CHF (congestive heart failure) (Inactive) CKD (chronic kidney disease) stage 3, GFR 30-59 ml/min COPD (chronic obstructive pulmonary disease) COPD (chronic obstructive pulmonary disease) (Chronic) Depression with anxiety Diabetes (Chronic) Diabetes mellitus with diabetic polyneuropathy Diabetic peripheral neuropathy Endometrial cancer (Resolved) Hirsutism Hyperlipidemia Hypertension Hypothyroidism Malignant neoplasm of corpus uteri (Inactive) Neuropathic ulcer of toe of right foot (Inactive) Obstructive sleep apnea Pleural effusion (Inactive) Sciatica (Inactive) Surgical History Hx of salpingo-oophorectomy, bilateral S/P hysterectomy (Chronic) S/P Mohs surgery for basal cell carcinoma (Acute) S/P thoracentesis (Inactive) Family History Father Coronary heart disease Myocardial infarction Mother Alzheimer disease Social History Preferred Language: Portuguese Communication Ability: Effective Visual Impairment: Limited Watch Crystal Cutter Required: No Beliefs That Will Affect Care: None marital status: Current Living Situation: Spouse current occupational status: retired Feels Safe at Home: Yes Smoking Status: Unknown if ever smoked Hx Alcohol Use: No Hx Substance Use: No Dental Care, Regularly: Yes Physical Activity Frequency: 1-2 Times per Week Sunscreen Use: No Review of Systems See HPI for pertinent positives & negatives. and A total of 10 systems reviewed and were otherwise negative Physical Exam Vital Signs Vital Signs - 24 hr 10/05/19 15:46 10/05/19 17:11 Temperature 98.1 F Temperature Source Oral Pulse Rate 77 Pulse Rate [Left] 61 Pulse Rhythm Regular Respiratory Rate 18 20 Respiratory Effort / Characteristics Non-Labored Non-Labored Spontaneous Respiratory Depth Normal Respiratory Pattern Regular Blood Pressure 140/63 Blood Pressure [Left Arm] 164/91 H Blood Pressure Mean 88 Blood Pressure Mean [Left Arm] 115 Blood Pressure Position [Left Arm] Sitting Pulse Oximetry 97 96 Oxygen Delivery Method Nasal Cannula Nasal Cannula Oxygen Flow Rate 3 3 Sepsis Recent Fever Within 48 Hours No Sepsis New/Unexplained Change in Mental Status No Sepsis Action Taken by Nursing No Action Required GENERAL: alert, obese, hirsute, well nourished, no distress, non-toxic EYE EXAM: normal conjunctiva, PERRL and EOM's grossly intact OROPHARYNX: no exudate, no erythema, lips, buccal mucosa, and tongue normal and mucous membranes are moist NECK: supple, no nuchal rigidity, no adenopathy, non-tender LUNGS: Clear to auscultation. Normal chest wall mechanics, no w/r/r, no tachypnea at rest, however appears to have conversational dyspnea HEART: no murmurs, S1 normal and S2 normal ABDOMEN: abdomen soft, non-tender, normo-active bowel sounds, no masses, no rebound or guarding. BACK: Back is symmetrical on inspection and there is no deformity, no midline tenderness, no CVA tenderness. SKIN: no rashes and no bruising UPPER EXTREMITIES: upper extremities are grossly normal. FROM, nml pulses b/l. LOWER EXTREMITIES: 1+ LE edema. Dressing on the right foot. Normal distal pulses bilaterally. NEURO EXAM: Normal sensorium, cranial nerves II-XII grossly intact, normal speech, no gross weakness of arms, no gross weakness of legs. Course Course 1554: The patient was evaluated in room A4B and a complete history and physical were performed. 1754: I reevaluated the patient. I updated her on her results and we will speak with her Hot Box Operator, Dr. Gil. She did states that she thinks she should stay in the hospital for further evaluation. 1833: I discussed the patients case with Dr. Gil [facility] Cardiology. He is agreeable with the plan for hospitalization. 1835: I discussed the patients case with Dr. Kaur [facility] Hospitalist. The patient will be further evaluated. 1900: I reevaluated the patient. She is resting comfortably. I discussed my conversation with Doctors Louise and Vincent and she is agreeable with the plan. Consultations Consultation #1: I discussed the patients case with Dr. [facility]. He is agreeable with the plan for hospitalization. Time: 18:33 Consultation #2: I discussed the patients case with Dr. Kaur [facility]. The patient will be further evaluated. Time: 18:35 Administered Medications Albuterol (Ventolin 0.083% 2.5mg/3ml) 2.5 mg INH Q4 PRN PRN Reason: shortness of breath or wheezin Stop: 11/04/19 21:42 Last Admin: 10/06/19 13:59 Dose: 2.5 mg Documented by: [id number] Admin: 10/06/19 02:52 Dose: 2.5 mg Documented by: [id number] Albuterol (Duoneb) 3 ml NEB Q4R [facility] Stop: 11/05/19 18:59 Last Admin: 10/07/19 02:21 Dose: 3 ml Documented by: [id number] Admin: 10/06/19 23:02 Dose: 3 ml Documented by: [id number] Admin: 10/06/19 19:17 Dose: 3 ml Documented by: [id number] Allopurinol (Zyloprim) 100 mg PO DAILY@1800 [facility] Stop: 11/05/19 17:59 Last Admin: 10/06/19 17:16 Dose: 100 mg Documented by: [id number] Atorvastatin Calcium (Lipitor) 40 mg PO DAILY [facility] Stop: 11/05/19 08:59 Last Admin: 10/06/19 07:44 Dose: 40 mg Documented by: [id number] Diltiazem HCl (Cardizem Cd) 240 mg PO QAM [facility] Stop: 11/05/19 08:59 Last Admin: 10/06/19 07:43 Dose: 240 mg Documented by: [id number] Fluticasone Furoate (Arnuity Ellipta 200mcg) 1 puffs INH QAM [facility] Stop: 11/05/19 08:59 Last Admin: 10/06/19 07:40 Dose: 1 puffs Documented by: [id number] Guaifenesin (Mucinex) 1,200 mg PO Q12 [facility] Stop: 11/05/19 20:59 Last Admin: 10/06/19 20:35 Dose: 1,200 mg Documented by: [id number] Bumetanide 4 mg/ Syringe 16 mls @ 4 mls/min IV DAILY@0900,1700 [facility] Stop: 11/05/19 16:59 Last Admin: 10/06/19 17:14 Dose: 4 mls/min Documented by: [id number] Insulin Aspart (Novolog Aspart) 0 units SC ACHS [facility] Stop: 11/04/19 22:14 Last Admin: 10/06/19 20:35 Dose: 8 units Documented by: [id number] Cosigned by: [id number] Admin: 10/06/19 17:15 Dose: 10 units Documented by: [id number] Cosigned by: [id number] Admin: 10/06/19 14:33 Dose: 2 units Documented by: [id number] Cosigned by: [id number] Admin: 10/06/19 08:50 Dose: 9 units Documented by: [id number] Cosigned by: [id number] Admin: 10/05/19 22:59 Dose: 6 units Documented by: [id number] Cosigned by: [id number] Insulin Human NPH (Novolin N Nph) 0 units SC BIDM [facility]; Protocol Stop: 11/05/19 16:59 Last Admin: 10/06/19 17:11 Dose: 25 units Documented by: [id number] Cosigned by: [id number] Levothyroxine Sodium (Synthroid) 50 mcg PO DAILYBB [facility] Stop: 11/05/19 06:29 Last Admin: 10/06/19 06:14 Dose: 50 mcg Documented by: [id number] Magnesium Oxide (Mag-Ox) 400 mg PO DAILY@1200 [facility] Stop: 11/05/19 11:59 Last Admin: 10/06/19 17:08 Dose: 400 mg Documented by: [id number] Metoprolol Succinate (Toprol Xl) 150 mg PO DAILY [facility] Stop: 11/05/19 08:59 Last Admin: 10/06/19 07:42 Dose: 150 mg Documented by: [id number] Nystatin (Mycostatin) 1 appln EXT TID [facility] Stop: 11/05/19 08:59 Last Admin: 10/06/19 20:35 Dose: 1 appln Documented by: [id number] Admin: 10/06/19 17:09 Dose: 1 appln Documented by: [id number] Admin: 10/06/19 08:51 Dose: 1 appln Documented by: [id number] Potassium Chloride (Klor-Con M20) 40 meq PO QAM [facility] Stop: 11/05/19 08:59 Last Admin: 10/06/19 07:41 Dose: 40 meq Documented by: [id number] Rivaroxaban (Xarelto) 15 mg PO DAILY@1800 [facility] Stop: 11/05/19 17:59 Last Admin: 10/06/19 17:16 Dose: 15 mg Documented by: [id number] Vitamin D (Vitamin D3) 2,000 units PO DAILY@1200 [facility] Stop: 11/05/19 11:59 Last Admin: 10/06/19 17:07 Dose: 2,000 units Documented by: [id number] Discontinued Medications Bumetanide 2 mg/ Syringe 8 mls @ 4 mls/min IV ONE ONE Stop: 10/05/19 18:30 Last Admin: 10/05/19 19:53 Dose: 4 mls/min Documented by: [id number] Furosemide 40 mg/ Syringe 4 mls @ 4 mls/min IV BID17 [facility] Stop: 11/04/19 21:59 Last Admin: 10/06/19 07:44 Dose: 4 mls/min Documented by: [id number] Admin: 10/05/19 23:05 Dose: Not Given Documented by: [id number] Insulin Aspart (Novolog Aspart) 0 units SC 0000,0400 [facility] Stop: 10/06/19 04:01 Last Admin: 10/06/19 04:18 Dose: Not Given Documented by: [id number] Cosigned by: [id number] Admin: 10/06/19 00:58 Dose: Not Given Documented by: [id number] Cosigned by: [id number] Insulin Aspart (Novolog Aspart) 0 units SC 0000 [facility] Stop: 10/07/19 00:01 Last Admin: 10/07/19 00:11 Dose: Not Given Documented by: [id number] Cosigned by: [id number] Insulin Human NPH (Novolin N Nph) 40 units SC [facility] Stop: 10/05/19 22:15 Last Admin: 10/05/19 22:58 Dose: 40 units Documented by: [id number] Cosigned by: [id number] Insulin Human NPH (Novolin N Nph) 35 units SC NOW [facility] Stop: 10/06/19 09:16 Last Admin: 10/06/19 10:27 Dose: 35 units Documented by: [id number] Cosigned by: [id number] Potassium Chloride (Klor-Con M20) 40 meq PO NOW ST[facility] Stop: 10/05/19 18:30 Last Admin: 10/05/19 19:52 Dose: 40 meq Documented by: [id number] Medical Decision Making Differential Diagnosis Differential diagnoses includes but is not limited to acute coronary syndrome, myocardial infarction, pericarditis, pulmonary embolus, aortic dissection, pneumonia, pneumothorax, musculoskeletal, shingles, esophageal. Medical Records Attestation: I reviewed the patient's medical records. Home Medications Current Medication List: was personally reviewed by me Laboratory Data Attestation: I reviewed the patient's lab results. Result diagrams: 10/06/19 06:24 10/06/19 06:24 Lab Results 10/05/19 10/05/19 10/05/19 Range/Units 16:10 16:10 17:05 WBC 7.20 (4.8-10.8) K/uL RBC 4.54 (4.2-5.4) M/uL Hgb 13.3 (12.0-16.0) g/dL Hct 40.5 (37-47) % MCV 89.2 (80-100) fL MCH 29.3 (25-34) pg MCHC 32.8 (32-36) g/dL RDW Std Deviation 51.6 H (36.4-46.3) fL RDW Coeff of Davina 15.9 H (11.5-14.5) % Plt Count 178 (130-400) K/uL MPV 9.5 (7.4-10.4) fL Immature Gran % (Auto) 0.1 % Neut % (Auto) 72.9 % Lymph % (Auto) 18.5 % [place] % (Auto) 6.8 % Eos % (Auto) 1.1 % Baso % (Auto) 0.6 % Immature Gran # (Auto) 0.01 (0.00-0.02) K/uL Neut # (Auto) 5.25 (1.4-6.5) K/uL Lymph # (Auto) 1.33 (1.2-3.4) K/uL [place] # (Auto) 0.49 (0.11-0.59) K/uL Eos # (Auto) 0.08 (0-0.5) K/uL Baso # (Auto) 0.04 (0-0.2) K/uL Sodium 137 (136-145) mmol/L Potassium 3.9 (3.5-5.1) mmol/L Chloride 99 (98-107) mmol/L Carbon Dioxide 33 H (21-32) mmol/L Anion Gap 5.0 (3-11) BUN 22 H (7-18) mg/dl Creatinine 1.15 (0.6-1.2) mg/dl Est Cr Clr Drug Dosing 58.1 ml/min Est GFR ( Amer) 53.9 Est GFR (Non-Af Amer) 46.5 BUN/Creatinine Ratio 18.7 (10-20) Glucose 182 H (70-99) mg/dl Calcium 9.1 (8.5-10.1) mg/dl Magnesium 1.9 (1.8-2.4) mg/dl Total Bilirubin 0.6 (0.2-1) mg/dl AST 32 (15-37) U/L ALT 46 (12-78) U/L Alkaline Phosphatase 146 H (45-117) U/L Troponin I < 0.015 (0-0.045) ng/ml NT-Pro-B Natriuret Pep 529 (0-900) pg/ml Total Protein 7.4 (6.4-8.2) gm/dl Albumin 3.4 (3.4-5.0) gm/dl Globulin 4.0 (2.5-4.0) gm/dl Albumin/Globulin Ratio 0.9 (0.9-2) Lipase 147 (73-393) U/L TSH 2.800 (0.300-4.500) uIu/ml Urine Color Yellow Urine Appearance Clear (Clear) Urine pH 5.0 (4.5-7.5) Ur Specific [place] 1.022 (1.000-1.030) Urine Protein 2+ H (Negative) Urine Glucose (UA) Negative (Negative) Urine Ketones Trace H (Negative) Urine Blood Trace H (Negative) Urine Nitrite Negative (Negative) Urine Bilirubin Negative (Negative) Urine Urobilinogen Negative (Negative) Ur Leukocyte Esterase Trace H (Negative) Urine WBC (Auto) 1-5 (0-5) /hpf Urine RBC (Auto) 0-4 (0-4) /hpf U Hyaline Cast (Auto) 1-5 (0-5) /lpf U Epithel Cells (Auto) >30 H (0-5) /lpf Urine Bacteria (Auto) Negative (Negative) Imaging Data Radiologist's Impression: Radiology results as stated below per my review and the radiologist's interpretation: XR chest 1V portable CLINICAL HISTORY: chest pain dyspnea COMPARISON STUDY: 01/05/2019 FINDINGS: Moderate cardiomegaly. Small right pleural effusion. Prominent pulmonary vasculature. IMPRESSION: Congestive heart failure. ACT 112: Negative or not required by law. The above report was generated using voice recognition software. It may contain grammatical, syntax or spelling errors. Electronically signed by: Richie Bowen M.D. 10/05/2019 4:35 PM ECG Data Attestation: I personally reviewed and interpreted this ECG as follows: Indication: + chest pain Rate (beats per minute): 76 Rhythm: + sinus rhythm ECG Intervals/blocks: + First degree AV block ECG [place]: + Left axis deviation ECG ST segments: no ST depression and no ST elevation ECG Findings: + PACs (Frequent PAC) Blood Pressure Blood Pressure Findings: Elevated blood pressure Blood Pressure Disposition: further management by hospitalist MDM Narrative Patient presenting here with complaints of increased dyspnea and concern for possible evolving congestive heart failure. Patient has required additional oxygen beyond which she typically wears at home. No evidence of acute infect ious etiology. Patient's chest x-ray and elevated BNP more suggestive of evolving CHF. Case discussed with cardiology. Patient uncomfortable with trial of additional diuretic here and discharged with close follow-up. Given her complicated past medical history and cardiac history, I do not feel is unreasonable to pursue inpatient evaluation and management. Case discussed with hospitalist in addition who will evaluate her. No evidence of acute renal failure or symptomatic anemia. I do not suspect ACS, dissection, or pericardial effusion. On review of EMR, patient's prior echo did show a slightly decreased ejection fraction. Impression & Plan Dyspnea, Chest pain, CHF (congestive heart failure), Oxygen dependent Discharge Plan Visit Data *Final* Discharge Date/Time: 10/05/19 21:20 Chief Complaint: Chest Pain Stated Complaint: CHEST PAIN, SOB ED Provider: Precious Mtz Discharge Problem: Dyspnea, Chest pain, CHF (congestive heart failure), Oxygen dependent Patient Disposition: Admitted As Inpatient Discharge Instructions Interventions: ED Discharge Assessment Last Done: 10/05/19 21:20 The scribe's documentation has been prepared under my direction and personally reviewed by me in its entirety. I confirm that the note above accurately reflects all work, treatment, procedures, and medical decision making performed by me.
[2019-10-07 06:48] LABS: Basophils # (auto) 0.03 K/uL (0-0.2); Basophils % (auto) 0.5 %; Eosinophils % (auto) 1.5 %; Hemoglobin 12.7 g/dL (12.0-16.0); Immature Granulocytes # (auto) 0.02 K/uL (0.00-0.02); Immature Granulocytes % (auto) 0.3 %; Lymphocytes # (auto) 1.52 K/uL (1.2-3.4); Lymphocytes % (auto) 22.9 %; Mean Corpuscular Hgb Conc 32.6 g/dL (32-36); Monocytes # (auto) 0.48 K/uL (0.11-0.59); Monocytes % (auto) 7.2 %; Neutrophils # (auto) 4.49 K/uL (1.4-6.5); Neutrophils % (auto) 67.6 %; Platelet Count 160 K/uL (130-400); RDW Coefficient of Variation 16.1 % (11.5-14.5); RDW Standard Deviation 52.6 fL (36.4-46.3); Red Blood Count 4.38 M/uL (4.2-5.4); White Blood Count 6.64 K/uL (4.8-10.8)
[2019-10-07] MEDS: LEVOTHYROXINE SODIUM 50 MCG TABLET PO SCH (07:14)
[2019-10-07 07:23] LABS: Albumin Level 3.2 gm/dl (3.4-5.0); BUN Creatinine Ratio 20.7 (10-20); Calcium 8.7 mg/dl (8.5-10.1); Creatinine Clr Calc Pharmacy 59.4 ml/min; Est GFR (African American) 56.9; Est GFR (Non-African American) 49.1
[2019-10-07 07:26] LABS: Albumin Globulin Ratio 0.9 (0.9-2); Bilirubin,Total 0.9 mg/dl (0.2-1); Globulin 3.7 gm/dl (2.5-4.0); Total Protein 6.9 gm/dl (6.4-8.2)
[2019-10-07] MEDS: FLUTICASONE FUROATE 200MCG 14 PUFFS/INHALER INH SCH (08:08)
[2019-10-07] MEDS: guaiFENesin 600 MG TABCR PO SCH ×2 (08:10→20:50)
[2019-10-07] MEDS: METOPROLOL SUCC 50MG EXT REL TAB PO SCH (08:10)
[2019-10-07] MEDS: dilTIAZem HCL 240 MG CAPCR PO SCH (08:10)
[2019-10-07] MEDS: BUMETANIDE 4 MG in SYRINGE 0 ML IV SCH ×2 (08:10→17:42)
[2019-10-07] MEDS: ATORVASTATIN 40 MG TAB PO SCH (08:10)
[2019-10-07] MEDS: NYSTATIN POWDER 15GM BTL EXT SCH ×3 (08:11→20:49)
[2019-10-07] MEDS: POTASSIUM CHLORIDE 20 MEQ TABCR PO SCH (08:12)
[2019-10-07] MEDS: INSULIN ASPART 100 UNITS/ML VIAL SC SCH ×4 (08:14→20:50)
[2019-10-07] MEDS: INSULIN HUMAN NPH SC SCH ×2 (08:16→17:42)
--- NOTE | 2019-10-07 10:01 | Cardiology Consultation ---
Date of Consultation October 07, 2019 Assessment & Plan (1) Dyspnea: The patient carries a history of chronic respiratory failure. Suspect that her decompensation leading to this hospital admission was multifactorial. She has a history of chronic diastolic CHF, chronic obesity hypoventilation syndrome, COPD, and obstructive sleep apnea. (2) Chronic diastolic (congestive) heart failure: She has been diuresing well on intravenous Bumex. We will continue intravenous diuretics while hospitalized. It is curious that her BNP at the time of admission was normal. This would suggest that there was not an acute exacerbation of her diastolic CHF. (3) Atrial fibrillation: She has a history of paroxysmal atrial fibrillation and atrial flutter. Currently appears to be in atrial flutter with a controlled ventricular response. Would continue long-acting metoprolol and diltiazem. Currently on renally adjusted Xarelto. (4) Hypertension: Adequate control on current medical regimen. (5) Hyperlipidemia: Continue atorvastatin. History of Present Illness Attending Physician: Chevy Yanez DO History of Present Illness Mrs. Arellano is a 74-year-old female admitted October 05 with acute on chronic respiratory failure. This consultation was obtained to assist in her cardiac management. Of note, the patient is well known to me from the outpatient setting. The patient was in her usual state of health until approximately 2-3 days prior to presentation. She began to note progressive shortness of breath and an increasing oxygen requirement. On the day of admission, she was being seen by her counsel. She became acutely short of breath and felt that she was in atrial flutter. It was recommended that she proceed to the emergency room for further care. On arrival here, the patient was felt to be in mild congestive heart failure. She was offered a dose of and intravenous diuretic and discharged home, however, the patient requested hospitalization. Of note, her BNP was normal at 529. The patient has diuresed well since her hospital admission. She is currently resting comfortably in the bedside chair and without complaints of dyspnea. PAST MEDICAL AND SURGICAL HISTORY: 1. Chronic diastolic congestive heart failure. 2. Hypertension. 3. Moderate left ventricular hypertrophy. 4. Hypercholesterolemia. 5. Paroxysmal atrial flutter. 6. Diabetes mellitus. 7. Obesity. 8. Chronic obesity hypoventilation syndrome. 9. Recurrent right-sided pleural effusion. 10. Hypothyroidism. 11. Chronic lymphedema. 12. GERD. 13. Gout. 14. Endometrial carcinoma --June 2000. 15. Status post SRIRAM/BSO --June 2000. 16. Hirsutism. 17. History of left retinal hemorrhage. SOCIAL HISTORY: The patient is and lives with her . Denies tobacco or alcohol. FAMILY HISTORY: Father of a CVA in his mid 70s mother had Alzheimer'sdementia at age 90. REVIEW OF SYSTEMS: A 10-point review of systems was negative except for thatdescribed above. Allergies Allergy/AdvReac Type Severity Reaction Status Date / Time Penicillins Allergy Intermediate HIVES Verified 10/05/19 16:43 mineral oil Allergy Unknown Verified 10/05/19 16:43 metronidazole AdvReac Unknown NAUSEA Verified 10/05/19 16:43 ceresin [From Eucerin] AdvReac Redness of Verified 10/05/19 16:43 Skin emollient combination no.33 AdvReac Redness of Verified 10/05/19 16:43 [From Eucerin] Skin isopropyl myristate AdvReac Redness of Verified 10/05/19 16:43 [From Eucerin] Skin lanolin alcohols AdvReac Redness of Verified 10/05/19 16:43 [From Eucerin] Skin mineral oil [From Eucerin] AdvReac Redness of Verified 10/05/19 16:43 Skin soap [From Eucerin] AdvReac Redness of Verified 10/05/19 16:43 Skin water [From Eucerin] AdvReac Redness of Verified 10/05/19 16:43 Skin Home Medications Home Medications Medication Instructions Recorded Confirmed Type Flovent HFA 1 puff INHALATION BID 09/18/18 10/05/19 History Xarelto 15 mg PO DAILY@1800 09/18/18 10/05/19 History acetaminophen [Tylenol Extra 500 mg PO Q4H PRN 09/18/18 10/05/19 History Strength] bumetanide 2 mg PO BID 09/18/18 10/05/19 History cholecalciferol (vitamin D3) 2,000 units PO DAILY@1200 09/18/18 10/05/19 History [Vitamin D3] magnesium oxide 400 mg PO DAILY@1200 09/18/18 10/05/19 History diltiazem HCl 240 mg PO QAM 10/06/18 10/05/19 History Oxygen Home #1 ea 04/03/19 09/28/19 History pen needle, diabetic 32 gauge x #50 ea 04/03/19 09/28/19 History 1/4" albuterol sulfate 2.5 mg INHALATION .COMPLEX PRN ml 04/24/19 10/05/19 History blood sugar diagnostic #50 ea 05/15/19 09/28/19 Rx insulin lispro [Humalog KwikPen 5 unit SUBCUT DAILY@1200 06/21/19 10/05/19 History Insulin] Humulin 70/30 U-100 KwikPen 82 unit SUBCUT QAM 06/27/19 10/05/19 History Humulin 70/30 U-100 KwikPen 85 unit SUBCUT HS 06/27/19 10/05/19 History levothyroxine 50 mcg PO QAM 06/27/19 10/05/19 History diphenhydramine-zinc acetate 1 applic EXT Q6H PRN #30 g 07/05/19 10/05/19 Rx [Anti-Itch(diphenhyd) with Zinc] metformin 500 mg tablet 500 mg PO TID tab 07/10/19 10/05/19 History atorvastatin 40 mg tablet 40 mg PO DAILY #90 tab 07/20/19 10/05/19 Rx metoprolol succinate 100 mg 150 mg PO DAILY #135 tab 07/20/19 10/05/19 Rx tablet,extended release 24 hr nystatin 100,000 unit/gram topical See Rx Instructions .ROUTE 08/28/19 10/05/19 Rx powder .COMPLEX #60 gram albuterol sulfate 90 mcg/actuation 1 - 2 puff INHALATION Q4H PRN #18 09/01/19 10/05/19 Rx aerosol inhaler gm allopurinol 100 mg tablet 100 mg PO DAILY@1800 #90 tab 09/01/19 10/05/19 Rx potassium chloride 10 mEq 10 meq PO QAM #90 cap 10/06/19 Rx capsule,extended release Patient History Medical History Acquired claw toe of left foot Acquired claw toe of right foot (Chronic) Acquired lymphedema (Inactive) Anxiety (Inactive) Anxiety (Chronic) Atrial fibrillation Atrial flutter (Inactive) Basal cell carcinoma, face Callus (Inactive) CHF (congestive heart failure) (Inactive) CKD (chronic kidney disease) stage 3, GFR 30-59 ml/min COPD (chronic obstructive pulmonary disease) COPD (chronic obstructive pulmonary disease) (Chronic) Depression with anxiety Diabetes (Chronic) Diabetes mellitus with diabetic polyneuropathy Diabetic peripheral neuropathy Endometrial cancer (Resolved) Hirsutism Hyperlipidemia Hypertension Hypothyroidism Malignant neoplasm of corpus uteri (Inactive) Neuropathic ulcer of toe of right foot (Inactive) Obstructive sleep apnea Pleural effusion (Inactive) Sciatica (Inactive) Surgical History Hx of salpingo-oophorectomy, bilateral S/P hysterectomy (Chronic) S/P Mohs surgery for basal cell carcinoma (Acute) S/P thoracentesis (Inactive) Family History Father Coronary heart disease Myocardial infarction Mother Alzheimer disease Social History Preferred Language: Indonesian Communication Ability: Effective Visual Impairment: Limited Envelope Cutter Required: No Beliefs That Will Affect Care: None marital status: Current Living Situation: Spouse current occupational status: retired Feels Safe at Home: Yes Smoking Status: Unknown if ever smoked Hx Alcohol Use: No Hx Substance Use: No Dental Care, Regularly: Yes Physical Activity Frequency: 1-2 Times per Week Sunscreen Use: No Physical Exam Physical Exam: In general this is an obese white female seated in a bedside chair without complaints. HEENT exam is negative. Neck is supple with full carotid upstrokes. There are no obvious bruits. Jugular venous pressure is difficult to assess. Cardiovascular exam reveals a regular rhythm with distant heart sounds. No obvious murmurs. No S3. Lungs are clear without rales, rhonchi or wheezes. Abdomen is obese without bruits extremities reveal intact radial artery pulses bilaterally. There is 2+ nonpitting edema with chronic venous stasis changes. Results & Data Vital Signs (Past 12 Hours) Vital Signs Temp Pulse Pulse Resp BP Pulse Ox 10/07/19 07:13 36.7 C 70 20 163/71 H 95 10/07/19 07:01 78 18 94 10/07/19 04:03 36.6 C 71 20 156/71 H 98 10/07/19 04:00 36.8 C 71 18 156/71 H 98 10/07/19 02:23 71 18 99 10/07/19 00:00 72 10/06/19 23:27 36.4 C L 69 20 124/66 96 10/06/19 23:04 70 16 97 Laboratory Results CBC notes hemoglobin 12.7, crit 39.0, white count 6.64, platelet count [id number]. Electrolytes note a sodium of 138, potassium 4.0, chloride 99, bicarb 35, BUN 23, creatinine 1.1, glucose of 137. Troponin I level is undetectable less than 0.015. BMP is normal 529. Diagnostic Findings EKG notes poor quality but either sinus rhythm or atrial flutter. There is a left axis deviation. equipment monitor phototypesetting suggests atrial flutter. Chest x-ray notes cardiomegaly but is under penetrated. PG Care Time/CCT Total # of Minutes Spent Total Time Spent with Patient: Total time spent is greater than 50% in coordination of care (as documented) at patient's floor/unit and/or counseling patient:
[2019-10-07] MEDS: CHOLECALCIFEROL 1,000 UNITS 25 MCG TAB PO SCH (12:10)
[2019-10-07] MEDS: MAGNESIUM OXIDE 400 MG TAB PO SCH (12:10)
--- NOTE | 2019-10-07 15:08 | Pharmacy Report ---
Pharmacy Glycemic Short Note 2 - Date of Service October 07, 2019 - Glycemic Short BSG Results (Last 24 hours): 10/06/19 10/06/19 10/06/19 16:25 20:07 23:47 Glucose POC Glucose 108 H 190 H 106 H 10/07/19 10/07/19 10/07/19 04:02 06:07 07:09 Glucose 137 H POC Glucose 115 H 139 H 10/07/19 11:10 Glucose POC Glucose 169 H ASSESSMENT: 10/07: * Patient received total of 89 units of insulin yesterday, of which 60 were basal insulin * BSGs well controlled yesterday - PO intake improving therefore will tighten CR this AM * Plan to titrate up NPH dosing as PO intake improving PLAN FOR INPATIENT GLYCEMIC CONTROL: * Holding outpatient oral diabetes medications * Basal insulin - titrate up * NPH - 35 this AM * NPH with dinner based on scale 30-40 units based upon BSG * Bolus insulin -tighten CR * NovoLog per scale ACHS or Q6hrs while NPO * Goal Range: Low 110 mg/dL - High 140 mg/dL * Correction Factor: 10 mg/dL/unit * Nutritional / Prandial insulin per carb ratio of 1 unit per 3.5 grams CHO consumed * Please note that the plan above was derived based on current level of insulin resistance and hospital stress. These recommendations are appropriate for inpatient admission only. Plan of care upon discharge will need to be reassessed to avoid potential outpatient hypo/hyperglycemia. Thank you.
--- NOTE | 2019-10-07 17:02 | Hospitalist Progress Note ---
Date of Service October 07, 2019 Assessment & Plan (1) Acute and chronic respiratory failure: - Possibly multifactorial - COPD Exacerbation vs Viral URI vs Acute CHF - Reports needing to use 5 L NC at home due to SOB and currently weaned back down to baseline 3 L - Treatment as discussed below (2) Acute exacerbation of congestive heart failure: - Acute on Chronic Diastolic CHF - possible; CXR does reveal fluid accumulation however assessing volume is difficult due to body habitus; BNP is normal however she is diuresing - Hold home Bumex 2 mg BID and use Bumex 4 mg IV BID - will need to watch closes to prevent dehydration - also states breathing treatments seem to help her SOB suggests possibly pulmonary source - Daily weights and I&Os - Consult Cardiology - appreciate input - patient also notes increasing palpitations and question some bursts of A Fib RVR? however on monitor she did have a short moment of HR at 39 but is in A Fib/Flutter mostly in 60-70s (3) COPD (chronic obstructive pulmonary disease): - Question if this is more the underlying issue - symptoms improve with Nebs - Will continue DYLAN Duonebs with PRN use in between; Mucinex BID; Fluticasone daily - Discussed systemic steroids but she reports unfavorable symptoms on them - can hold on these and reassess (4) Obstructive sleep apnea: - STABLE - Continue CPAP (5) Atrial fibrillation: - Paroxysmal - was found in A Fib/Fluttter on monitor with rate 60-70s; patient reports she notices her A Fib more often lately and faster rates - Continue Diltiazem 240 mg daily, Metoprolol 150 mg daily; Xarelto 15 mg daily (may need to discuss this current dosing) (6) Hypertension: - Continue Diltiazem and Metoprolol; currently increased Bumex (7) Diabetes mellitus with diabetic polyneuropathy: - Hold metformin; Glycemic control per pharmacy. (8) Hyperlipidemia: - Continue Atorvastatin 40 mg daily Code Status: Discussed with patient on 10/06. She would allow chest compressions and shock however does not want intubated/mechanical ventilation. Discussed scenario of acute decompensation in respiratory status if she would want intubated and she again declines wanting any form of ventilation. States her knows her wishes as well and has a living will. Asked if it could be brought in. - Changed to a conditional code Disposition: Pending symptom improvement plan to D/C home Subjective Reports feeling better today compared to yesterday. HR in flutter but rate controlled on monitor. Feels like her mucous is thinning and able to cough it up better. Nebs seems to be helping the most. However she is diuresing and labs are stable. Her legs looks well and stable. Verbalizes no new complaints at this time. Review of Systems Constitutional: no fever and no chills Ear, Nose, Mouth, Throat: + post nasal drip; no sore throat Respiratory: + cough, + chest congestion and + dyspnea; no sputum production Cardiovascular: + palpitations; no chest pain, no lightheadedness and no edema Gastrointestinal: no abdominal pain, no nausea, no vomiting, no constipation and no diarrhea/loose stools Genitourinary: no dysuria Integumentary: + wounds Physical Exam Constitutional: WD/WN, vitals as above no acute distress Eyes: + anicteric sclerae ENMT: Ears: no hearing impairment Neck: trachea midline and + thick neck Respiratory: normal respiratory effort Auscultation: + diminished lung sounds Cardiovascular: Rate/Rhythm: regular rate and regular rhythm Vessels: no JVD (but difficult to truly assess given habitus) Gastrointestinal (Abdomen): Inspection/Auscultation: normal bowel sounds Percussion/Palpation: abdomen soft; abdomen nontender Musculoskeletal: Head/Neck/Chest: normocephalic and head atraumatic Results & Data Vital Signs (Past 12 Hours) Vital Signs Temp Pulse Resp BP Pulse Ox 10/07/19 15:43 36.5 C 71 16 135/69 99 10/07/19 15:17 77 19 97 10/07/19 11:45 36.3 C L 77 18 149/72 H 96 10/07/19 11:09 68 18 98 10/07/19 07:13 36.7 C 70 20 163/71 H 95 10/07/19 07:01 78 18 94 PG Care Time/CCT Total # of Minutes Spent Total Time Spent with Patient: Total time spent is greater than 50% in coordination of care (as documented) at patient's floor/unit and/or counseling patient: (1) Diabetes mellitus with diabetic polyneuropathy Diabetes mellitus type: type 2 Diabetes mellitus long-term insulin use: unspecified long-term insulin use status Qualified Code(s): E11.42 - Type 2 diabetes mellitus with diabetic polyneuropathy
[2019-10-07] MEDS: RIVAROXABAN 15 MG TAB PO SCH (17:43)
[2019-10-07] MEDS: allopurinoL 100 MG TAB PO SCH (17:44)
[2019-10-08] MEDS: ALBUT/IPRATROP 3MG/0.5MG NEB 3 ML VIAL NEB SCH ×6 (03:24→23:12)
[2019-10-08] MEDS: LEVOTHYROXINE SODIUM 50 MCG TABLET PO SCH (05:09)
[2019-10-08] MEDS: guaiFENesin 600 MG TABCR PO SCH ×2 (08:06→21:36)
[2019-10-08] MEDS: METOPROLOL SUCC 50MG EXT REL TAB PO SCH (08:06)
[2019-10-08] MEDS: BUMETANIDE 4 MG in SYRINGE 0 ML IV SCH ×2 (08:06→17:00)
[2019-10-08] MEDS: ATORVASTATIN 40 MG TAB PO SCH (08:06)
[2019-10-08] MEDS: dilTIAZem HCL 240 MG CAPCR PO SCH (08:06)
[2019-10-08] MEDS: POTASSIUM CHLORIDE 20 MEQ TABCR PO SCH (08:07)
[2019-10-08] MEDS: INSULIN HUMAN NPH SC SCH ×2 (08:09→17:01)
[2019-10-08] MEDS: FLUTICASONE FUROATE 200MCG 14 PUFFS/INHALER INH SCH (08:09)
[2019-10-08] MEDS: INSULIN ASPART 100 UNITS/ML VIAL SC SCH ×4 (08:10→21:36)
[2019-10-08] MEDS: NYSTATIN POWDER 15GM BTL EXT SCH ×3 (08:22→21:36)
[2019-10-08 08:26] LABS: Albumin Level 3.5 gm/dl (3.4-5.0); Calcium 8.7 mg/dl (8.5-10.1); Creatinine Clr Calc Pharmacy 51.4 ml/min; Est GFR (African American) 53.3; Potassium 3.8 mmol/L (3.5-5.1)
[2019-10-08 08:29] LABS: Bilirubin,Total 0.9 mg/dl (0.2-1); Globulin 3.6 gm/dl (2.5-4.0); Total Protein 7.1 gm/dl (6.4-8.2)
[2019-10-08 08:33] LABS: Basophils # (auto) 0.03 K/uL (0-0.2); Basophils % (auto) 0.5 %; Eosinophils # (auto) 0.11 K/uL (0-0.5); Eosinophils % (auto) 1.8 %; Hematocrit (blood only) 39.7 % (37-47); Hemoglobin 12.7 g/dL (12.0-16.0); Immature Granulocytes # (auto) 0.01 K/uL (0.00-0.02); Immature Granulocytes % (auto) 0.2 %; Lymphocytes # (auto) 1.25 K/uL (1.2-3.4); Lymphocytes % (auto) 20.2 %; Mean Corpuscular Hemoglobin 28.6 pg (25-34); Mean Corpuscular Volume 89.4 fL (80-100); Monocytes # (auto) 0.51 K/uL (0.11-0.59); Monocytes % (auto) 8.2 %; Neutrophils # (auto) 4.29 K/uL (1.4-6.5); Neutrophils % (auto) 69.1 %; Platelet Count 172 K/uL (130-400); RDW Coefficient of Variation 16.1 % (11.5-14.5); RDW Standard Deviation 52.7 fL (36.4-46.3); Red Blood Count 4.44 M/uL (4.2-5.4)
[2019-10-08] MEDS: CHOLECALCIFEROL 1,000 UNITS 25 MCG TAB PO SCH (11:58)
[2019-10-08] MEDS: MAGNESIUM OXIDE 400 MG TAB PO SCH (11:58)
--- NOTE | 2019-10-08 14:53 | Pharmacy Report ---
Pharmacy Glycemic Short Note 2 - Date of Service October 08, 2019 - Glycemic Short BSG Results (Last 24 hours): 10/07/19 10/07/19 10/07/19 16:30 20:47 23:43 Glucose POC Glucose 108 H 204 H 154 H 10/08/19 10/08/19 10/08/19 07:12 07:37 11:33 Glucose 157 H POC Glucose 155 H 179 H ASSESSMENT: * Patient received total of 119 units of insulin yesterday * 65 units of basal * 54 units of bolus * BSGs ranged froom 108 - 204 mg/dL * Fasting BSG of 155 mg/dL is near goal. Continue current NPH orders. * BSG tends to become elevated at lunch and bedtime indicating that patient needs additional carb coverage. Will tighten carb coverage. PLAN FOR INPATIENT GLYCEMIC CONTROL: * Holding outpatient oral diabetes medications * Basal insulin * NPH per scale BID: * 30 units for BSG < 110 mg/dL * 35 units for BSG 110-200 mg/dL * 40 units for BSG > 200 mg/dl * Bolus insulin - tighten carb ration, loosen CF * NovoLog per scale ACHS or Q6hrs while NPO * Goal Range: Low 110 mg/dL - High 140 mg/dL * Correction Factor: 15 mg/dL/unit * Nutritional / Prandial insulin per carb ratio of 1 unit per 3 grams CHO consumed * Please note that the plan above was derived based on current level of insulin resistance and hospital stress. These recommendations are appropriate for inpatient admission only. Plan of care upon discharge will need to be reassessed to avoid potential outpatient hypo/hyperglycemia. Thank you.
[2019-10-08] MEDS: RIVAROXABAN 15 MG TAB PO SCH (17:01)
[2019-10-08] MEDS: allopurinoL 100 MG TAB PO SCH (17:02)
[2019-10-08] MEDS ORDERED: COUGH DROP (SUGAR FREE) LOZ 24 LOZ/1 BOX BUCCAL ONE (21:39)
--- NOTE | 2019-10-08 22:08 | Hospitalist Progress Note ---
Date of Service October 08, 2019 Assessment & Plan (1) Acute and chronic respiratory failure: - multifactorial - COPD Exacerbation and slightly volume overloaded - Reports needing to use 5 L NC at home due to SOB and currently weaned back down to baseline 3 L - Treatment as discussed below (2) Acute exacerbation of congestive heart failure: - Acute on Chronic Diastolic CHF - possible; CXR does reveal fluid accumulation however assessing volume is difficult due to body habitus; BNP is normal however she is diuresing - continue increased dose of Bumex 4 mg IV BID negative over 4000mL, breathing better no edema in legs but appears to have edema in abdomen - Daily weights and I&Os - Consult Cardiology - appreciate input - patient also notes increasing palpitations and question some bursts of A Fib RVR? however on monitor she did have a short moment of HR at 39 but is in A Fib/Flutter mostly in 60-70s (3) COPD (chronic obstructive pulmonary disease): - Question if this is more the underlying issue - symptoms improve with Nebs - Will continue DYLAN Duonebs with PRN use in between; Mucinex BID; Fluticasone daily - Discussed systemic steroids but she reports unfavorable symptoms on them - can hold on these and reassess also, steroids could cause more fluid retention (4) Obstructive sleep apnea: - STABLE - Continue CPAP (5) Atrial fibrillation: - Paroxysmal - was found in A Fib/Fluttter on monitor with rate 60-70s; patient reports she notices her A Fib more often lately and faster rates - Continue Diltiazem 240 mg daily, Metoprolol 150 mg daily; Xarelto 15 mg daily (6) Hypertension: - Continue Diltiazem and Metoprolol; currently increased Bumex BP stable (7) Diabetes mellitus with diabetic polyneuropathy: - Hold metformin; Glycemic control per pharmacy. monitor for hypoglycemia, no episodes (8) Hyperlipidemia: - Continue Atorvastatin 40 mg daily Code Status: Discussed with patient on 10/06. She would allow chest compressions and shock however does not want intubated/mechanical ventilation. Discussed scenario of acute decompensation in respiratory status if she would want intubated and she again declines wanting any form of ventilation. States her knows her wishes as well and has a living will. Asked if it could be brought in. - Changed to a conditional code Disposition: d/c to home once medically stable Subjective patient is breathing better each day continues to respond well to Bumex 4mg twice a day urine output increasing, negative 4000mL for the admission no chest pain or pressure she is eating well, had a BM yesterday (formed) and no difficulty urinating on her own she is requesting wound care to see her about wrapping her legs, discussed that we are waiting while she is volume overloaded reviewed labs, Cr holding at 1.1, K is 3.8 sugars well controlled, no hypoglycemia Review of Systems Review of Systems: All systems reviewed & are unremarkable except as noted in HPI & below Respiratory: + dyspnea on exertion; no cough and no dyspnea Cardiovascular: no chest pain and no edema Gastrointestinal: no abdominal pain, no nausea, no vomiting, no constipation and no diarrhea/loose stools Physical Exam Constitutional: WD/WN, vitals as above + obese Eyes: PERRL, conjunctivae normal, anicteric sclerae ENMT: external ear and nose normal, oropharynx normal Neck: trachea midline, no thyromegaly + thick neck Respiratory: normal respiratory effort; no respiratory distress Auscultation: + rales (bibasilar); no rhonchi and no wheezes Cardiovascular: Rate/Rhythm: regular rate and + irregularly irregular Heart Sounds: normal S1 and normal S2; no murmur Extremities: normal capillary refill; no edema Gastrointestinal (Abdomen): normal bowel sounds, soft, nontender, no hepato splenomegaly Musculoskeletal: no cyanosis or clubbing, extremities motor strength 5/5 Skin: + ulcer (venous stasis ulcers), + dry skin and + erythema (venous stasis changes) Neurologic: patellar DTR's 2+ bilat, sensation intact and PERRL, EOMI, accommodation nl, no face palsy, no dysarthria Psychiatric: A+Ox3, euthymic affect Lymphatic: no cervical or axillary lymphadenopathy Results & Data Vital Signs (Past 12 Hours) Vital Signs Temp Pulse Pulse Resp BP BP Pulse Ox 10/08/19 19:50 36.7 C 70 20 138/70 97 10/08/19 19:12 73 16 98 10/08/19 15:58 36.8 C 70 21 140/65 99 10/08/19 15:02 72 18 98 10/08/19 12:20 36.5 C 77 18 128/83 97 Laboratory Results Laboratory Results - last 24 hr 01/10/08/19 10/08/19 23:43 07:12 07:12 WBC 6.20 RBC 4.44 Hgb 12.7 Hct 39.7 MCV 89.4 MCH 28.6 MCHC 32.0 RDW Std Deviation 52.7 H RDW Coeff of Davina 16.1 H Plt Count 172 MPV 10.0 Immature Gran % (Auto) 0.2 Neut % (Auto) 69.1 Lymph % (Auto) 20.2 [place] % (Auto) 8.2 Eos % (Auto) 1.8 Baso % (Auto) 0.5 Immature Gran # (Auto) 0.01 Neut # (Auto) 4.29 Lymph # (Auto) 1.25 [place] # (Auto) 0.51 Eos # (Auto) 0.11 Baso # (Auto) 0.03 Sodium 138 Potassium 3.8 Chloride 98 Carbon Dioxide 37 H Anion Gap 3.0 BUN 26 H Creatinine 1.16 Est Cr Clr Drug Dosing 51.4 Est GFR ( Amer) 53.3 Est GFR (Non-Af Amer) 46.0 BUN/Creatinine Ratio 22.0 H Glucose 157 H POC Glucose 154 H Calcium 8.7 Total Bilirubin 0.9 AST 53 H ALT 61 Alkaline Phosphatase 146 H Total Protein 7.1 Albumin 3.5 Globulin 3.6 Albumin/Globulin Ratio 1.0 10/08/19 10/08/19 10/08/19 07:37 11:33 16:33 WBC RBC Hgb Hct MCV MCH MCHC RDW Std Deviation RDW Coeff of Davina Plt Count MPV Immature Gran % (Auto) Neut % (Auto) Lymph % (Auto) [place] % (Auto) Eos % (Auto) Baso % (Auto) Immature Gran # (Auto) Neut # (Auto) Lymph # (Auto) [place] # (Auto) Eos # (Auto) Baso # (Auto) Sodium Potassium Chloride Carbon Dioxide Anion Gap BUN Creatinine Est Cr Clr Drug Dosing Est GFR ( Amer) Est GFR (Non-Af Amer) BUN/Creatinine Ratio Glucose POC Glucose 155 H 179 H 121 H Calcium Total Bilirubin AST ALT Alkaline Phosphatase Total Protein Albumin Globulin Albumin/Globulin Ratio 10/08/19 20:47 WBC RBC Hgb Hct MCV MCH MCHC RDW Std Deviation RDW Coeff of Davina Plt Count MPV Immature Gran % (Auto) Neut % (Auto) Lymph % (Auto) [place] % (Auto) Eos % (Auto) Baso % (Auto) Immature Gran # (Auto) Neut # (Auto) Lymph # (Auto) [place] # (Auto) Eos # (Auto) Baso # (Auto) Sodium Potassium Chloride Carbon Dioxide Anion Gap BUN Creatinine Est Cr Clr Drug Dosing Est GFR ( Amer) Est GFR (Non-Af Amer) BUN/Creatinine Ratio Glucose POC Glucose 130 H Calcium Total Bilirubin AST ALT Alkaline Phosphatase Total Protein Albumin Globulin Albumin/Globulin Ratio Medications Administered Current Inpatient Medications Acetaminophen (Tylenol) 650 mg PO Q4H PRN PRN Reason: Pain or Fever Stop: 11/04/19 21:42 Al Hydrox/Mg Hydrox/Simethicone (Maalox) 15 ml PO Q4H PRN PRN Reason: Dyspepsia Stop: 11/04/19 21:42 Albuterol (Ventolin 0.083% 2.5mg/3ml) 2.5 mg INH Q4 PRN PRN Reason: shortness of breath or wheezin Stop: 11/04/19 21:42 Last Admin: 10/06/19 13:59 Dose: 2.5 mg Documented by: Albuterol (Ventolin Hfa) 2 puffs INH Q4H PRN PRN Reason: Shortness Of Breath Or Wheezin Stop: 11/04/19 21:42 Albuterol (Duoneb) 3 ml NEB Q4R [facility] Stop: 11/05/19 18:59 Last Admin: 10/08/19 19:12 Dose: 3 ml Documented by: Allopurinol (Zyloprim) 100 mg PO DAILY@1800 [facility] Stop: 11/05/19 17:59 Last Admin: 10/08/19 17:02 Dose: 100 mg Documented by: Atorvastatin Calcium (Lipitor) 40 mg PO DAILY [facility] Stop: 11/05/19 08:59 Last Admin: 10/08/19 08:06 Dose: 40 mg Documented by: Dextrose (Dextrose 50%) 25 - 50 ml IV UD PRN; Protocol PRN Reason: Hypoglycemia Protocol Stop: 11/04/19 21:42 Diltiazem HCl (Cardizem Cd) 240 mg PO QAM [facility] Stop: 11/05/19 08:59 Last Admin: 10/08/19 08:06 Dose: 240 mg Documented by: Fluticasone Furoate (Arnuity Ellipta 200mcg) 1 puffs INH QAM [facility] Stop: 11/05/19 08:59 Last Admin: 10/08/19 08:09 Dose: 1 puffs Documented by: Glucagon (Glucagen) 1 mg SQ UD PRN; Protocol PRN Reason: Hypoglycemia Protocol Stop: 11/04/19 21:42 Glucose (Dex4 Glucose) 4 - 8 tabs PO UD PRN; Protocol PRN Reason: Hypoglycemia Protocol Stop: 11/04/19 21:42 Glucose (Glucose 40%) 15 - 30 gm PO UD PRN; Protocol PRN Reason: Hypoglycemia Protocol Stop: 11/04/19 21:42 Guaifenesin (Mucinex) 1,200 mg PO Q12 [facility] Stop: 11/05/19 20:59 Last Admin: 10/08/19 21:36 Dose: 1,200 mg Documented by: Bumetanide 4 mg/ Syringe 16 mls @ 4 mls/min IV DAILY@0900,1700 [facility] Stop: 11/05/19 16:59 Last Admin: 10/08/19 17:00 Dose: 4 mls/min Documented by: Insulin Aspart (Novolog Aspart) 0 units SC ACHS [facility] Stop: 11/04/19 22:14 Last Admin: 10/08/19 21:36 Dose: Not Given Documented by: Insulin Human NPH (Novolin N Nph) 0 units SC BIDM [facility]; Protocol Stop: 11/05/19 16:59 Last Admin: 10/08/19 17:01 Dose: 35 units Documented by: Levothyroxine Sodium (Synthroid) 50 mcg PO DAILYBB [facility] Stop: 11/05/19 06:29 Last Admin: 10/08/19 05:09 Dose: 50 mcg Documented by: Magnesium Hydroxide (Milk Of Magnesia) 30 ml PO Q12H PRN PRN Reason: Constipation Stop: 11/04/19 21:42 Magnesium Oxide (Mag-Ox) 400 mg PO DAILY@1200 [facility] Stop: 11/05/19 11:59 Last Admin: 10/08/19 11:58 Dose: 400 mg Documented by: Metoprolol Succinate (Toprol Xl) 150 mg PO DAILY [facility] Stop: 11/05/19 08:59 Last Admin: 10/08/19 08:06 Dose: 150 mg Documented by: Miscellaneous (Carbohydrates For Hypoglycemia) 15 - 30 gm PO UD PRN PRN Reason: Hypoglycemia Protocol Stop: 11/04/19 21:42 Miscellaneous Information (Consult Glycemic Management Pharmacy) 1 ea N/A UD PRN; Protocol PRN Reason: Consult Stop: 11/04/19 21:52 Nystatin (Mycostatin) 1 appln EXT TID [facility] Stop: 11/05/19 08:59 Last Admin: 10/08/19 21:36 Dose: 1 appln Documented by: Ondansetron HCl (Zofran) 4 mg IV Q6H PRN PRN Reason: Nausea Stop: 11/04/19 21:42 Polyethylene Glycol (Miralax Powder Packet) 17 gm PO DAILY PRN PRN Reason: Constipation Stop: 11/04/19 21:42 Potassium Chloride (Klor-Con M20) 40 meq PO QAM [facility] Stop: 11/05/19 08:59 Last Admin: 10/08/19 08:07 Dose: 40 meq Documented by: Rivaroxaban (Xarelto) 15 mg PO DAILY@1800 [facility] Stop: 11/05/19 17:59 Last Admin: 10/08/19 17:01 Dose: 15 mg Documented by: Vitamin D (Vitamin D3) 2,000 units PO DAILY@1200 [facility] Stop: 11/05/19 11:59 Last Admin: 10/08/19 11:58 Dose: 2,000 units Documented by: Zinc Acetate/Diphenhydramine (Benadryl Extra Strength) 1 appln EXT Q6H PRN PRN Reason: itch Stop: 11/04/19 21:42 PG Care Time/CCT Total # of Minutes Spent Total Time Spent with Patient: Total time spent is greater than 50% in coordin ation of care (as documented) at patient's floor/unit and/or counseling patient: Coding Level of Care Code 06361 Subseq Hosp Care Lvl 3 Diagnoses Acute and chronic respiratory failure J96.20 Acute exacerbation of congestive heart failure I50.9 COPD (chronic obstructive pulmonary disease) J44.9 Obstructive sleep apnea G47.33 Atrial fibrillation I48.91 Hypertension I10 Diabetes mellitus with diabetic polyneuropathy E11.42 Diabetes mellitus type: type 2 Diabetes mellitus chcf insulin use: unspecified 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
[2019-10-09] MEDS: ALBUT/IPRATROP 3MG/0.5MG NEB 3 ML VIAL NEB SCH ×6 (02:56→23:30)
[2019-10-09] MEDS: LEVOTHYROXINE SODIUM 50 MCG TABLET PO SCH (06:49)
[2019-10-09 07:06] LABS: Basophils # (auto) 0.04 K/uL (0-0.2); Basophils % (auto) 0.6 %; Eosinophils # (auto) 0.16 K/uL (0-0.5); Eosinophils % (auto) 2.6 %; Hematocrit (blood only) 39.7 % (37-47); Immature Granulocytes # (auto) 0.02 K/uL (0.00-0.02); Immature Granulocytes % (auto) 0.3 %; Lymphocytes # (auto) 1.39 K/uL (1.2-3.4); Lymphocytes % (auto) 22.3 %; Mean Corpuscular Hemoglobin 29.4 pg (25-34); Mean Corpuscular Hgb Conc 32.7 g/dL (32-36); Mean Corpuscular Volume 89.8 fL (80-100); Mean Platelet Volume 9.8 fL (7.4-10.4); Monocytes # (auto) 0.46 K/uL (0.11-0.59); Monocytes % (auto) 7.4 %; Neutrophils # (auto) 4.16 K/uL (1.4-6.5); Neutrophils % (auto) 66.8 %; Platelet Count 161 K/uL (130-400); RDW Coefficient of Variation 16.1 % (11.5-14.5); RDW Standard Deviation 53.1 fL (36.4-46.3); Red Blood Count 4.42 M/uL (4.2-5.4); White Blood Count 6.23 K/uL (4.8-10.8)
[2019-10-09 07:40] LABS: Albumin Level 3.4 gm/dl (3.4-5.0); BUN Creatinine Ratio 22.4 (10-20); Calcium 8.7 mg/dl (8.5-10.1); Creatinine Clr Calc Pharmacy 53.9 ml/min; Est GFR (African American) 52.2; Est GFR (Non-African American) 45.1; Potassium 3.9 mmol/L (3.5-5.1)
[2019-10-09 07:42] LABS: Albumin Globulin Ratio 0.9 (0.9-2); Bilirubin,Total 0.9 mg/dl (0.2-1); Globulin 3.7 gm/dl (2.5-4.0); Total Protein 7.1 gm/dl (6.4-8.2)
[2019-10-09] MEDS: BUMETANIDE 4 MG in SYRINGE 0 ML IV SCH ×2 (08:19→16:40)
[2019-10-09] MEDS: ATORVASTATIN 40 MG TAB PO SCH (08:20)
[2019-10-09] MEDS: dilTIAZem HCL 240 MG CAPCR PO SCH (08:20)
[2019-10-09] MEDS: METOPROLOL SUCC 50MG EXT REL TAB PO SCH (08:20)
[2019-10-09] MEDS: INSULIN ASPART 100 UNITS/ML VIAL SC SCH ×4 (08:21→20:26)
[2019-10-09] MEDS: guaiFENesin 600 MG TABCR PO SCH ×2 (08:21→20:21)
[2019-10-09] MEDS: FLUTICASONE FUROATE 200MCG 14 PUFFS/INHALER INH SCH (08:21)
[2019-10-09] MEDS: INSULIN HUMAN NPH SC SCH ×2 (08:21→18:03)
[2019-10-09] MEDS: NYSTATIN POWDER 15GM BTL EXT SCH ×3 (08:58→20:22)
[2019-10-09] MEDS: POTASSIUM CHLORIDE 20 MEQ TABCR PO SCH (08:59)
[2019-10-09] MEDS: MAGNESIUM OXIDE 400 MG TAB PO SCH (12:25)
[2019-10-09] MEDS: CHOLECALCIFEROL 1,000 UNITS 25 MCG TAB PO SCH (12:25)
--- NOTE | 2019-10-09 14:51 | Heart Failure Progress Note ---
Date of Service October 09, 2019 Subjective Patient referred to the [facility] heart failure program by Dr. Yanez. Spoke to the patient today about the heart failure program and she is not interested at this time. She states that she does not interested in people calling her all of the time and that she is not interested in traveling to [place] for additional appointments. She states that she does weigh herself regularly and knows how to dose sliding scale diuretics. She states that she "knows when she's filling up with fluid." She says she did attempt to increase her outpatient regimen prior to this admission but "it got ahead of her." She is not interested in documenting her weights on paper. She is currently active with the wound clinic and follows there weekly. For now we will hold off on enrolling the patient since she is not agreeable. She is now aware we have a heart failure program. Patient is aware she can call in anytime if she is having worsening heart failure symptoms or weight gain that is not responding to her diuretics. She is agreeable to this. She can continue to follow up with Dr. Gil for her routine cardiology visits in [facility]. Results & Data Vital Signs (Past 12 Hours) Vital Signs Temp Pulse Pulse Pulse Resp BP Pulse Ox 10/09/19 11:23 81 18 91 10/09/19 10:07 97.9 F 77 18 166/70 H 99 10/09/19 07:57 97.9 F 71 21 140/79 98 10/09/19 06:58 71 16 98 10/09/19 03:40 97.7 F 69 20 146/80 H 99 10/09/19 02:57 71 18 98 PG Care Time/CCT Total # of Minutes Spent Total Time Spent with Patient: Total time spent is greater than 50% in coordination of care (as documented) at patient's floor/unit and/or counseling patient: Coding Level of Care Code None
--- NOTE | 2019-10-09 15:53 | Hospitalist Progress Note ---
Date of Service October 09, 2019 Assessment & Plan (1) Acute and chronic respiratory failure: - multifactorial - primary cause is acute on chronic diastolic heart failure, some mild COPD exacerbation - Reports needing to use 5 L NC at home due to SOB and currently weaned back down to baseline 3 L - breathing comfortably (2) Acute exacerbation of congestive heart failure: - Acute on Chronic Diastolic CHF ; CXR does reveal fluid accumulation how ever assessing volume is difficult due to body habitus; BNP is normal however she is diuresing - continue increased dose of Bumex 4 mg IV BID negative over 8000mL, breathing better no edema in legs but appears to have edema in abdomen Cr is stable - asked Alina Painter to visit with patient on 10/09, the patient refuses to follow up with CHF clinic - Daily weights and I&Os - Consult Cardiology - appreciate input (3) COPD (chronic obstructive pulmonary disease): - symptoms improve with Nebs - Will continue DYLAN Duonebs with PRN use in between; Mucinex BID; Fluticasone daily - Discussed systemic steroids but she reports unfavorable symptoms on them - can hold on these and reassess also, steroids could cause more fluid retention (4) Obstructive sleep apnea: - STABLE - Continue CPAP (5) Atrial fibrillation: - Paroxysmal - was found in A Fib/Fluttter on monitor with rate 60-70s; patient reports she notices her A Fib more often lately and faster rates - Continue Diltiazem 240 mg daily, Metoprolol 150 mg daily; Xarelto 15 mg daily rates have been stable for days downgrade to medical floor today (6) Hypertension: - Continue Diltiazem and Metoprolol; currently increased Bumex BP stable (7) Diabetes mellitus with diabetic polyneuropathy: - Hold metformin; Glycemic control per pharmacy. monitor for hypoglycemia, no episodes (8) Hyperlipidemia: - Continue Atorvastatin 40 mg daily Code Status: Discussed with patient on 10/06. She would allow chest compressions and shock however does not want intubated/mechanical ventilation. Discussed scenario of acute decompensation in respiratory status if she would want intubated and she again declines wanting any form of ventilation. States her knows her wishes as well and has a living will. Asked if it could be brought in. - Changed to a conditional code Disposition: d/c to home once medically stable Subjective patient feeling really good, breathing is stable she has diuresed over 8000mL and feels like her legs have a lot less edema eating well, moving her bowels, urinating without difficulty (about 500mL each time) reviewed labs, Cr remains stable at 1.1, K is 3.9, CO2 stable at 35 discussed with Alina CARTAGENA, she approached the patient about following with CHF clinic, the patient refuses participating in PT/OT we discussed that we will continue to diurese with Bumex 4mg IV until Cr rises or UO tapers off Review of Systems Review of Systems: All systems reviewed & are unremarkable except as noted in HPI & below Physical Exam Constitutional: WD/WN, vitals as above + obese Eyes: PERRL, conjunctivae normal, anicteric sclerae ENMT: external ear and nose normal, oropharynx normal Neck: trachea midline, no thyromegaly + thick neck Respiratory: normal respiratory effort; no respiratory distress Auscultation: no rhonchi and no wheezes Cardiovascular: Rate/Rhythm: regular rate and + irregularly irregular Heart Sounds: normal S1 and normal S2; no murmur Extremities: normal capillary refill; no edema Gastrointestinal (Abdomen): normal bowel sounds, soft, nontender, no hepatosplenomegaly Musculoskeletal: no cyanosis or clubbing, extremities motor strength 5/5 Skin: + ulcer (venous stasis ulcers), + dry skin and + erythema (venous stasis changes) Neurologic: patellar DTR's 2+ bilat, sensation intact and PERRL, EOMI, accommodation nl, no face palsy, no dysarthria Psychiatric: A+Ox3, euthymic affect Lymphatic: no cervical or axillary lymphadenopathy Results & Data Vital Signs (Past 12 Hours) Vital Signs Temp Pulse Pulse Pulse Resp BP BP 10/09/19 15:06 72 18 10/09/19 14:56 36.8 C 69 18 144/66 H 10/09/19 11:23 81 18 10/09/19 10:07 36.6 C 77 18 166/70 H 10/09/19 07:57 36.6 C 71 21 140/79 10/09/19 06:58 71 16 Pulse Ox 10/09/19 15:06 93 10/09/19 14:56 92 10/09/19 11:23 91 10/09/19 10:07 99 10/09/19 07:57 98 10/09/19 06:58 98 Laboratory Results Laboratory Results - last 24 hr 10/08/19 10/08/19 10/09/19 16:33 20:47 06:37 WBC 6.23 RBC 4.42 Hgb 13.0 Hct 39.7 MCV 89.8 MCH 29.4 MCHC 32.7 RDW Std Deviation 53.1 H RDW Coeff of Davina 16.1 H Plt Count 161 MPV 9.8 Immature Gran % (Auto) 0.3 Neut % (Auto) 66.8 Lymph % (Auto) 22.3 [place] % (Auto) 7.4 Eos % (Auto) 2.6 Baso % (Auto) 0.6 Immature Gran # (Auto) 0.02 Neut # (Auto) 4.16 Lymph # (Auto) 1.39 [place] # (Auto) 0.46 Eos # (Auto) 0.16 Baso # (Auto) 0.04 Sodium Potassium Chloride Carbon Dioxide Anion Gap BUN Creatinine Est Cr Clr Drug Dosing Est GFR ( Amer) Est GFR (Non-Af Amer) BUN/Creatinine Ratio Glucose POC Glucose 121 H 130 H Calcium Total Bilirubin AST ALT Alkaline Phosphatase Total Protein Albumin Globulin Albumin/Globulin Ratio 10/09/19 10/09/19 10/09/19 06:37 07:37 11:26 WBC RBC Hgb Hct MCV MCH MCHC RDW Std Deviation RDW Coeff of Davina Plt Count MPV Immature Gran % (Auto) Neut % (Auto) Lymph % (Auto) [place] % (Auto) Eos % (Auto) Baso % (Auto) Immature Gran # (Auto) Neut # (Auto) Lymph # (Auto) [place] # (Auto) Eos # (Auto) Baso # (Auto) Sodium 137 Potassium 3.9 Chloride 98 Carbon Dioxide 35 H Anion Gap 4.0 BUN 26 H Creatinine 1.18 Est Cr Clr Drug Dosing 53.9 Est GFR ( Amer) 52.2 Est GFR (Non-Af Amer) 45.1 BUN/Creatinine Ratio 22.4 H Glucose 151 H POC Glucose 156 H 139 H Calcium 8.7 Total Bilirubin 0.9 AST 46 H ALT 62 Alkaline Phosphatase 140 H Total Protein 7.1 Albumin 3.4 Globulin 3.7 Albumin/Globulin Ratio 0.9 Medications Administered Current Inpatient Medications Acetaminophen (Tylenol) 650 mg PO Q4H PRN PRN Reason: Pain or Fever Stop: 11/04/19 21:42 Al Hydrox/Mg Hydrox/Simethicone (Maalox) 15 ml PO Q4H PRN PRN Reason: Dyspepsia Stop: 11/04/19 21:42 Albuterol (Ventolin 0.083% 2.5mg/3ml) 2.5 mg INH Q4 PRN PRN Reason: shortness of breath or wheezin Stop: 11/04/19 21:42 Last Admin: 10/06/19 13:59 Dose: 2.5 mg Documented by: Albuterol (Ventolin Hfa) 2 puffs INH Q4H PRN PRN Reason: Shortness Of Breath Or Wheezin Stop: 11/04/19 21:42 Albuterol (Duoneb) 3 ml NEB Q4R [facility] Stop: 11/05/19 18:59 Last Admin: 10/09/19 15:06 Dose: 3 ml Documented by: Allopurinol (Zyloprim) 100 mg PO DAILY@1800 [facility] Stop: 11/05/19 17:59 Last Admin: 10/08/19 17:02 Dose: 100 mg Documented by: Atorvastatin Calcium (Lipitor) 40 mg PO DAILY [facility] Stop: 11/05/19 08:59 Last Admin: 10/09/19 08:20 Dose: 40 mg Documented by: Dextrose (Dextrose 50%) 25 - 50 ml IV UD PRN; Protocol PRN Reason: Hypoglycemia Protocol Stop: 11/04/19 21:42 Diltiazem HCl (Cardizem Cd) 240 mg PO QAM [facility] Stop: 11/05/19 08:59 Last Admin: 10/09/19 08:20 Dose: 240 mg Documented by: Fluticasone Furoate (Arnuity Ellipta 200mcg) 1 puffs INH QAM [facility] Stop: 11/05/19 08:59 Last Admin: 10/09/19 08:21 Dose: 1 puffs Documented by: Glucagon (Glucagen) 1 mg SQ UD PRN; Protocol PRN Reason: Hypoglycemia Protocol Stop: 11/04/19 21:42 Glucose (Dex4 Glucose) 4 - 8 tabs PO UD PRN; Protocol PRN Reason: Hypoglycemia Protocol Stop: 11/04/19 21:42 Glucose (Glucose 40%) 15 - 30 gm PO UD PRN; Protocol PRN Reason: Hypoglycemia Protocol Stop: 11/04/19 21:42 Guaifenesin (Mucinex) 1,200 mg PO Q12 [facility] Stop: 11/05/19 20:59 Last Admin: 10/09/19 08:21 Dose: 1,200 mg Documented by: Bumetanide 4 mg/ Syringe 16 mls @ 4 mls/min IV DAILY@0900,1700 [facility] Stop: 11/05/19 16:59 Last Admin: 10/09/19 08:19 Dose: 4 mls/min Documented by: Insulin Aspart (Novolog Aspart) 0 units SC ACHS [facility] Stop: 11/04/19 22:14 Last Admin: 10/09/19 12:30 Dose: 17 units Documented by: Insulin Human NPH (Novolin N Nph) 0 units SC BIDM [facility]; Protocol Stop: 11/05/19 16:59 Last Admin: 10/09/19 08:21 Dose: 35 units Documented by: Levothyroxine Sodium (Synthroid) 50 mcg PO DAILYBB [facility] Stop: 11/05/19 06:29 Last Admin: 10/09/19 06:49 Dose: 50 mcg Documented by: Magnesium Hydroxide (Milk Of Magnesia) 30 ml PO Q12H PRN PRN Reason: Constipation Stop: 11/04/19 21:42 Magnesium Oxide (Mag-Ox) 400 mg PO DAILY@1200 [facility] Stop: 11/05/19 11:59 Last Admin: 10/09/19 12:25 Dose: 400 mg Documented by: Metoprolol Succinate (Toprol Xl) 150 mg PO DAILY [facility] Stop: 11/05/19 08:59 Last Admin: 10/09/19 08:20 Dose: 150 mg Documented by: Miscellaneous (Carbohydrates For Hypoglycemia) 15 - 30 gm PO UD PRN PRN Reason: Hypoglycemia Protocol Stop: 11/04/19 21:42 Miscellaneous Information (Consult Glycemic Management Pharmacy) 1 ea N/A UD PRN; Protocol PRN Reason: Consult Stop: 11/04/19 21:52 Nystatin (Mycostatin) 1 appln EXT TID [facility] Stop: 11/05/19 08:59 Last Admin: 10/09/19 12:25 Dose: 1 appln Documented by: Ondansetron HCl (Zofran) 4 mg IV Q6H PRN PRN Reason: Nausea Stop: 11/04/19 21:42 Polyethylene Glycol (Miralax Powder Packet) 17 gm PO DAILY PRN PRN Reason: Constipation Stop: 11/04/19 21:42 Potassium Chloride (Klor-Con M20) 40 meq PO QAM [facility] Stop: 11/05/19 08:59 Last Admin: 10/09/19 08:59 Dose: 40 meq Documented by: Rivaroxaban (Xarelto) 15 mg PO DAILY@1800 [facility] Stop: 11/05/19 17:59 Last Admin: 10/08/19 17:01 Dose: 15 mg Documented by: Vitamin D (Vitamin D3) 2,000 units PO DAILY@1200 [facility] Stop: 11/05/19 11:59 Last Admin: 10/09/19 12:25 Dose: 2,000 units Documented by: Zinc Acetate/Diphenhydramine (Benadryl Extra Strength) 1 appln EXT Q6H PRN PRN Reason: itch Stop: 11/04/19 21:42 PG Care Time/CCT Total # of Minutes Spent Total Time Spent with Patient: Total time spent is greater than 50% in coordination of care (as documented) at patient's floor/unit and/or counseling patient: Coding Level of Care Code 72865 Subseq Hosp Care Lvl 2 Diagnoses Acute and chronic respiratory failure J96.20 Acute exacerbation of congestive heart failure I50.9 COPD (chronic obstructive pulmonary disease) J44.9 Obstructive sleep apnea G47.33 Atrial fibrillation I48.91 Hypertension I10 Diabetes mellitus with diabetic polyneuropathy E11.42 Diabetes mellitus 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
[2019-10-09] MEDS: allopurinoL 100 MG TAB PO SCH (18:05)
[2019-10-09] MEDS: RIVAROXABAN 15 MG TAB PO SCH (18:05)
[2019-10-10] MEDS: ALBUT/IPRATROP 3MG/0.5MG NEB 3 ML VIAL NEB SCH ×6 (02:11→22:58)
[2019-10-10] MEDS: LEVOTHYROXINE SODIUM 50 MCG TABLET PO SCH (05:41)
[2019-10-10 06:25] LABS: Basophils # (auto) 0.04 K/uL (0-0.2); Basophils % (auto) 0.6 %; Eosinophils # (auto) 0.14 K/uL (0-0.5); Eosinophils % (auto) 2.2 %; Hematocrit (blood only) 39.9 % (37-47); Hemoglobin 12.9 g/dL (12.0-16.0); Immature Granulocytes # (auto) 0.01 K/uL (0.00-0.02); Immature Granulocytes % (auto) 0.2 %; Lymphocytes # (auto) 1.55 K/uL (1.2-3.4); Lymphocytes % (auto) 24.3 %; Mean Corpuscular Hemoglobin 29.1 pg (25-34); Mean Corpuscular Hgb Conc 32.3 g/dL (32-36); Mean Corpuscular Volume 90.1 fL (80-100); Mean Platelet Volume 9.7 fL (7.4-10.4); Monocytes # (auto) 0.54 K/uL (0.11-0.59); Monocytes % (auto) 8.5 %; Neutrophils # (auto) 4.11 K/uL (1.4-6.5); Neutrophils % (auto) 64.2 %; Platelet Count 173 K/uL (130-400); RDW Coefficient of Variation 16.1 % (11.5-14.5); RDW Standard Deviation 53.2 fL (36.4-46.3); Red Blood Count 4.43 M/uL (4.2-5.4); White Blood Count 6.39 K/uL (4.8-10.8)
[2019-10-10 07:09] LABS: Albumin Globulin Ratio 0.8 (0.9-2); Albumin Level 3.3 gm/dl (3.4-5.0); BUN Creatinine Ratio 21.7 (10-20); Bilirubin,Total 0.9 mg/dl (0.2-1); Calcium 9.1 mg/dl (8.5-10.1); Creatinine Clr Calc Pharmacy 48.6 ml/min; Est GFR (Non-African American) 39.7; Total Protein 7.3 gm/dl (6.4-8.2)
[2019-10-10 08:02] LABS: Potassium 3.6 mmol/L (3.5-5.1)
[2019-10-10] MEDS: METOPROLOL SUCC 50MG EXT REL TAB PO SCH (08:26)
[2019-10-10] MEDS: FLUTICASONE FUROATE 200MCG 14 PUFFS/INHALER INH SCH (08:26)
[2019-10-10] MEDS: POTASSIUM CHLORIDE 20 MEQ TABCR PO SCH (08:26)
[2019-10-10] MEDS: dilTIAZem HCL 240 MG CAPCR PO SCH (08:27)
[2019-10-10] MEDS: ATORVASTATIN 40 MG TAB PO SCH (08:27)
[2019-10-10] MEDS: guaiFENesin 600 MG TABCR PO SCH ×2 (08:28→20:34)
[2019-10-10] MEDS: NYSTATIN POWDER 15GM BTL EXT SCH ×3 (08:31→21:31)
[2019-10-10] MEDS: INSULIN HUMAN NPH SC SCH ×2 (08:35→18:07)
[2019-10-10] MEDS: INSULIN ASPART 100 UNITS/ML VIAL SC SCH ×4 (08:37→20:36)
[2019-10-10] MEDS: BUMETANIDE 1 MG TAB PO SCH ×2 (09:24→18:03)
[2019-10-10] MEDS: MAGNESIUM OXIDE 400 MG TAB PO SCH (12:34)
[2019-10-10] MEDS: CHOLECALCIFEROL 1,000 UNITS 25 MCG TAB PO SCH (12:34)
[2019-10-10] MEDS ORDERED: predniSONE 10 MG TABLET PO STA (14:15)
--- NOTE | 2019-10-10 17:04 | Hospitalist Progress Note ---
Date of Service October 10, 2019 Assessment & Plan (1) Acute and chronic respiratory failure: - multifactorial - primary cause is acute on chronic diastolic heart failure, some mild COPD exacerbation - quickly weaned back down to baseline 3 L which she uses at home - breathing comfortably (2) Acute exacerbation of congestive heart failure: - Acute on Chronic Diastolic CHF ; CXR does reveal fluid accumulation however assessing volume is difficult due to body habitus; BNP is normal however she is diuresing - treated with increased dose of Bumex 4 mg IV BID for several days negative 9300mL, breathing much better no edema in legs Cr up slightly to 1.3 on 10/10, changed Bumex to 3mg PO BID - asked Alina Painter to visit with patient on 10/09, the patient refuses to follow up with CHF clinic - Daily weights and I&Os - Consult Cardiology - appreciate input (3) COPD (chronic obstructive pulmonary disease): - symptoms improve with Nebs - Will continue DYLAN Duonebs with PRN use in between; Mucinex BID; Fluticasone daily - Discussed systemic steroids but she reports unfavorable symptoms on them - can hold on these and reassess (4) Obstructive sleep apnea: - STABLE - Continue CPAP (5) Atrial fibrillation: - Paroxysmal - was found in A Fib/Fluttter on monitor with rate 60-70s; patient reports she notices her A Fib more often lately and faster rates - Continue Diltiazem 240 mg daily, Metoprolol 150 mg daily; Xarelto 15 mg daily rates have been stable for days (6) Hypertension: - Continue Diltiazem and Metoprolol; currently increased Bumex BP stable (7) Diabetes mellitus with diabetic polyneuropathy: - Hold metformin; Glycemic control per pharmacy. monitor for hypoglycemia, no episodes today (8) Hyperlipidemia: - Continue Atorvastatin 40 mg daily Code Status: Discussed with patient on 10/06. She would allow chest compressions and shock however does not want intubated/mechanical ventilation. Discussed scenario of acute decompensation in respiratory status if she would want intubated and she again declines wanting any form of ventilation. States her knows her wishes as well and has a living will. Asked if it could be brought in. - Changed to a conditional code Disposition: d/c to home once medically stable Subjective patient c/o red rash on upper back, pruritic and irritating offered to give her a one time dose of Prednisone, she agreed eating well, following fluid restriction still diuresing, Cr up slightly today at 1.3 from 1.1 will change from Bumex 4mg IV to Bumex 3mg PO BID patient says that she had some skin sloughing from her right leg this morning discussed that we could get the wound RN to see her on Saturday discussed plan for discharge early this week, she agrees Review of Systems Review of Systems: All systems reviewed & are unremarkable except as noted in HPI & below Physical Exam Constitutional: WD/WN, vitals as above + obese Eyes: PERRL, conjunctivae normal, anicteric sclerae ENMT: external ear and nose normal, oropharynx normal Neck: trachea midline, no thyromegaly + thick neck Respiratory: normal respiratory effort; no respiratory distress Auscultation: no rhonchi and no wheezes Cardiovascular: Rate/Rhythm: regular rate and + irregularly irregular Heart Sounds: normal S1 and normal S2; no murmur Extremities: normal capillary refill; no edema Gastrointestinal (Abdomen): normal bowel sounds, soft, nontender, no hepatosplenomegaly Musculoskeletal: no cyanosis or clubbing, extremities motor strength 5/5 Skin: + rash (upper middle back, slightly indurated, non tender), + ulcer (venous stasis ulcers), + dry skin and + erythema (venous stasis changes) Neurologic: patellar DTR's 2+ bilat, sensation intact and PERRL, EOMI, accommodation nl, no face palsy, no dysarthria Psychiatric: A+Ox3, euthymic affect Lymphatic: no cervical or axillary lymphadenopathy Results & Data Vital Signs (Past 12 Hours) Vital Signs Temp Pulse Resp BP BP Pulse Ox 10/10/19 16:04 68 20 95 10/10/19 15:00 36.8 C 66 20 134/67 95 10/10/19 11:10 76 18 96 10/10/19 08:03 71 18 96 10/10/19 07:28 36.7 C 70 18 173/79 H 97 Laboratory Results Laboratory Results - last 24 hr 10/09/19 10/10/19 10/10/19 20:24 05:20 05:20 WBC 6.39 RBC 4.43 Hgb 12.9 Hct 39.9 MCV 90.1 MCH 29.1 MCHC 32.3 RDW Std Deviation 53.2 H RDW Coeff of Davina 16.1 H Plt Count 173 MPV 9.7 Immature Gran % (Auto) 0.2 Neut % (Auto) 64.2 Lymph % (Auto) 24.3 [place] % (Auto) 8.5 Eos % (Auto) 2.2 Baso % (Auto) 0.6 Immature Gran # (Auto) 0.01 Neut # (Auto) 4.11 Lymph # (Auto) 1.55 [place] # (Auto) 0.54 Eos # (Auto) 0.14 Baso # (Auto) 0.04 Sodium 137 Potassium Chloride 98 Carbon Dioxide 34 H Anion Gap 5.0 BUN 28 H Creatinine 1.31 H Est Cr Clr Drug Dosing 48.6 Est GFR ( Amer) 46.0 Est GFR (Non-Af Amer) 39.7 BUN/Creatinine Ratio 21.7 H Glucose 153 H POC Glucose 155 H Calcium 9.1 Total Bilirubin 0.9 AST ALT 54 Alkaline Phosphatase 151 H Total Protein 7.3 Albumin 3.3 L Globulin 4.0 Albumin/Globulin Ratio 0.8 L 10/10/19 10/10/19 10/10/19 07:36 07:50 11:42 WBC RBC Hgb Hct MCV MCH MCHC RDW Std Deviation RDW Coeff of Davina Plt Count MPV Immature Gran % (Auto) Neut % (Auto) Lymph % (Auto) [place] % (Auto) Eos % (Auto) Baso % (Auto) Immature Gran # (Auto) Neut # (Auto) Lymph # (Auto) [place] # (Auto) Eos # (Auto) Baso # (Auto) Sodium Potassium 3.6 Chloride Carbon Dioxide Anion Gap BUN Creatinine Est Cr Clr Drug Dosing Est GFR ( Amer) Est GFR (Non-Af Amer) BUN/Creatinine Ratio Glucose POC Glucose 158 H 213 H Calcium Total Bilirubin AST 35 ALT Alkaline Phosphatase Total Protein Albumin Globulin Albumin/Globulin Ratio 10/10/19 16:41 WBC RBC Hgb Hct MCV MCH MCHC RDW Std Deviation RDW Coeff of Davina Plt Count MPV Immature Gran % (Auto) Neut % (Auto) Lymph % (Auto) [place] % (Auto) Eos % (Auto) Baso % (Auto) Immature Gran # (Auto) Neut # (Auto) Lymph # (Auto) [place] # (Auto) Eos # (Auto) Baso # (Auto) Sodium Potassium Chloride Carbon Dioxide Anion Gap BUN Creatinine Est Cr Clr Drug Dosing Est GFR ( Amer) Est GFR (Non-Af Amer) BUN/Creatinine Ratio Glucose POC Glucose 98 Calcium Total Bilirubin AST ALT Alkaline Phosphatase Total Protein Albumin Globulin Albumin/Globulin Ratio Medications Administered Current Inpatient Medications Acetaminophen (Tylenol) 650 mg PO Q4H PRN PRN Reason: Pain or Fever Stop: 11/04/19 21:42 Al Hydrox/Mg Hydrox/Simethicone (Maalox) 15 ml PO Q4H PRN PRN Reason: Dyspepsia Stop: 11/04/19 21:42 Albuterol (Ventolin 0.083% 2.5mg/3ml) 2.5 mg INH Q4 PRN PRN Reason: shortness of breath or wheezin Stop: 11/04/19 21:42 Last Admin: 10/06/19 13:59 Dose: 2.5 mg Documented by: Albuterol (Ventolin Hfa) 2 puffs INH Q4H PRN PRN Reason: Shortness Of Breath Or Wheezin Stop: 11/04/19 21:42 Albuterol (Duoneb) 3 ml NEB Q4R [facility] Stop: 11/05/19 18:59 Last Admin: 10/10/19 16:02 Dose: 3 ml Documented by: Allopurinol (Zyloprim) 100 mg PO DAILY@1800 [facility] Stop: 11/05/19 17:59 Last Admin: 10/09/19 18:05 Dose: 100 mg Documented by: Atorvastatin Calcium (Lipitor) 40 mg PO DAILY [facility] Stop: 11/05/19 08:59 Last Admin: 10/10/19 08:27 Dose: 40 mg Documented by: Bumetanide (Bumex) 3 mg PO BID17 [facility] Stop: 11/09/19 08:59 Last Admin: 10/10/19 09:24 Dose: 3 mg Documented by: Dextrose (Dextrose 50%) 25 - 50 ml IV UD PRN; Protocol PRN Reason: Hypoglycemia Protocol Stop: 11/04/19 21:42 Diltiazem HCl (Cardizem Cd) 240 mg PO QAM [facility] Stop: 11/05/19 08:59 Last Admin: 10/10/19 08:27 Dose: 240 mg Documented by: Fluticasone Furoate (Arnuity Ellipta 200mcg) 1 puffs INH QAM [facility] Stop: 11/05/19 08:59 Last Admin: 10/10/19 08:26 Dose: 1 puffs Documented by: Glucagon (Glucagen) 1 mg SQ UD PRN; Protocol PRN Reason: Hypoglycemia Protocol Stop: 11/04/19 21:42 Glucose (Dex4 Glucose) 4 - 8 tabs PO UD PRN; Protocol PRN Reason: Hypoglycemia Protocol Stop: 11/04/19 21:42 Glucose (Glucose 40%) 15 - 30 gm PO UD PRN; Protocol PRN Reason: Hypoglycemia Protocol Stop: 11/04/19 21:42 Guaifenesin (Mucinex) 1,200 mg PO Q12 [facility] Stop: 11/05/19 20:59 Last Admin: 10/10/19 08:28 Dose: 1,200 mg Documented by: Insulin Aspart (Novolog Aspart) 0 units SC ACHS [facility] Stop: 11/04/19 22:14 Last Admin: 10/10/19 12:36 Dose: 28 units Documented by: Insulin Human NPH (Novolin N Nph) 0 units SC BIDM [facility]; Protocol Stop: 11/05/19 16:59 Last Admin: 10/10/19 08:35 Dose: 35 units Documented by: Levothyroxine Sodium (Synthroid) 50 mcg PO DAILYBB [facility] Stop: 11/05/19 06:29 Last Admin: 10/10/19 05:41 Dose: 50 mcg Documented by: Magnesium Hydroxide (Milk Of Magnesia) 30 ml PO Q12H PRN PRN Reason: Constipation Stop: 11/04/19 21:42 Magnesium Oxide (Mag-Ox) 400 mg PO DAILY@1200 [facility] Stop: 11/05/19 11:59 Last Admin: 10/10/19 12:34 Dose: 400 mg Documented by: Metoprolol Succinate (Toprol Xl) 150 mg PO DAILY [facility] Stop: 11/05/19 08:59 Last Admin: 10/10/19 08:26 Dose: 150 mg Documented by: Miscellaneous (Carbohydrates For Hypoglycemia) 15 - 30 gm PO UD PRN PRN Reason: Hypoglycemia Protocol Stop: 11/04/19 21:42 Miscellaneous Information (Consult Glycemic Management Pharmacy) 1 ea N/A UD PRN; Protocol PRN Reason: Consult Stop: 11/04/19 21:52 Nystatin (Mycostatin) 1 appln EXT TID [facility] Stop: 11/05/19 08:59 Last Admin: 10/10/19 12:37 Dose: Not Given Documented by: Ondansetron HCl (Zofran) 4 mg IV Q6H PRN PRN Reason: Nausea Stop: 11/04/19 21:42 Polyethylene Glycol (Miralax Powder Packet) 17 gm PO DAILY PRN PRN Reason: Constipation Stop: 11/04/19 21:42 Potassium Chloride (Klor-Con M20) 40 meq PO QAM [facility] Stop: 11/05/19 08:59 Last Admin: 10/10/19 08:26 Dose: 40 meq Documented by: Rivaroxaban (Xarelto) 15 mg PO DAILY@1800 [facility] Stop: 11/05/19 17:59 Last Admin: 10/09/19 18:05 Dose: 15 mg Documented by: Vitamin D (Vitamin D3) 2,000 units PO DAILY@1200 [facility] Stop: 11/05/19 11:59 Last Admin: 10/10/19 12:34 Dose: 2,000 units Documented by: Zinc Acetate/Diphenhydramine (Benadryl Extra Strength) 1 appln EXT Q6H PRN PRN Reason: itch Stop: 11/04/19 21:42 PG Care Time/CCT Total # of Minutes Spent Total Time Spent with Patient: Total time spent is greater than 50% in coordination of care (as documented) at patient's floor/unit and/or counseling patient: Coding Level of Care Code 80854 Subseq Hosp Care Lvl 2 Diagnoses Acute and chronic respiratory failure J96.20 Acute exacerbation of congestive heart failure I50.9 COPD (chronic obstructive pulmonary disease) J44.9 Obstructive sleep apnea G47.33 Atrial fibrillation I48.91 Hypertension I10 Diabetes mellitus with diabetic polyneuropathy E11.42 Diabetes mellitus termite control servicer insulin use: unspecified termite control servicer insulin use status Diabetes mellitus type: type 2 Hyperlipidemia E78.5 (1) Diabetes mellitus with diabetic polyneuropathy Diabetes mellitus termite control servicer insulin use: unspecified [facility] insulin use status Diabetes mellitus type: type 2 Qualified Code(s): E11.42 - Type 2 diabetes mellitus with diabetic polyneuropathy
[2019-10-10] MEDS: allopurinoL 100 MG TAB PO SCH (18:03)
[2019-10-10] MEDS: RIVAROXABAN 15 MG TAB PO SCH (18:04)
[2019-10-11] MEDS: ALBUT/IPRATROP 3MG/0.5MG NEB 3 ML VIAL NEB SCH ×6 (03:24→23:31)
[2019-10-11] MEDS: LEVOTHYROXINE SODIUM 50 MCG TABLET PO SCH (05:46)
[2019-10-11] MEDS: METOPROLOL SUCC 50MG EXT REL TAB PO SCH (09:20)
[2019-10-11] MEDS: ATORVASTATIN 40 MG TAB PO SCH (09:20)
[2019-10-11] MEDS: POTASSIUM CHLORIDE 20 MEQ TABCR PO SCH (09:21)
[2019-10-11] MEDS: BUMETANIDE 1 MG TAB PO SCH ×2 (09:21→17:00)
[2019-10-11] MEDS: dilTIAZem HCL 240 MG CAPCR PO SCH (09:21)
[2019-10-11] MEDS: guaiFENesin 600 MG TABCR PO SCH ×2 (09:21→20:58)
[2019-10-11] MEDS: NYSTATIN POWDER 15GM BTL EXT SCH ×3 (09:22→20:59)
[2019-10-11] MEDS: FLUTICASONE FUROATE 200MCG 14 PUFFS/INHALER INH SCH (09:22)
[2019-10-11] MEDS: INSULIN ASPART 100 UNITS/ML VIAL SC SCH ×4 (09:24→21:01)
[2019-10-11] MEDS: INSULIN HUMAN NPH SC SCH ×2 (09:25→17:41)
[2019-10-11 10:07] LABS: BUN Creatinine Ratio 22.9 (10-20); Creatinine Clr Calc Pharmacy 54.8 ml/min; Est GFR (African American) 52.8; Est GFR (Non-African American) 45.5; Potassium 3.9 mmol/L (3.5-5.1)
[2019-10-11] MEDS: CHOLECALCIFEROL 1,000 UNITS 25 MCG TAB PO SCH (12:28)
[2019-10-11] MEDS: MAGNESIUM OXIDE 400 MG TAB PO SCH (12:29)
--- NOTE | 2019-10-11 15:51 | Hospitalist Progress Note ---
Date of Service October 11, 2019 Assessment & Plan (1) Acute and chronic respiratory failure: - multifactorial - primary cause is acute on chronic diastolic heart failure, some mild COPD exacerbation - quickly weaned back down to baseline 3 L which she uses at home - breathing comfortably for several days (2) Acute exacerbation of congestive heart failure: - Acute on Chronic Diastolic CHF ; CXR does reveal fluid accumulation however assessing volume is difficult due to body habitus; BNP is normal however she is diuresing - treated with increased dose of Bumex 4 mg IV BID for several days negative [id number], breathing much better no edema in legs Cr went up slightly to 1.3 on 10/10, changed Bumex to 3mg PO BID Cr back down to 1.1 10/11, still diuresing - asked Alina Painter to visit with patient on 10/09, the patient refuses to follow up with CHF clinic - Daily weights and I&Os - Consult Cardiology - appreciate input would continue slightly increased dose of Bumex 3mg BID on discharge (3) COPD (chronic obstructive pulmonary disease): - symptoms improve with Nebs - Will continue DYLAN Duonebs with PRN use in between; Mucinex BID; Fluticasone daily - Discussed systemic steroids but she reports unfavorable symptoms on them - can hold on these as she has no wheezing (4) Obstructive sleep apnea: - STABLE - Continue CPAP (5) Atrial fibrillation: - Paroxysmal - was found in A Fib/Fluttter on monitor with rate 60-70s; patient reports she notices her A Fib more often lately and faster rates - Continue Diltiazem 240 mg daily, Metoprolol 150 mg daily; Xarelto 15 mg daily rates have been stable for days (6) Hypertension: - Continue Diltiazem and Metoprolol; currently increased Bumex BP stable (7) Diabetes mellitus with diabetic polyneuropathy: - Hold metformin; Glycemic control per pharmacy. monitor for hypoglycemia, no episodes during stay (8) Hyperlipidemia: - Continue Atorvastatin 40 mg daily Code Status: Discussed with patient on 10/06. She would allow chest compressions and shock however does not want intubated/mechanical ventilation. Discussed scenario of acute decompensation in respiratory status if she would want i ntubated and she again declines wanting any form of ventilation. States her knows her wishes as well and has a living will. Asked if it could be brought in. - Changed to a conditional code Disposition: d/c to home once medically stable likely ready to go home on Saturday ask canvas shrinker to see patient tomorrow to reassess venous stasis wounds PT/OT consulted, she is doing well enough to go home Subjective patient continues to improve negative total of 11 liters as of today upper back less red today, bothering her less, able to sleep eating well, moving her bowels, no nausea no fever/chills updated her at the bedside labs today show that K is 3.9, Cr down to 1.17 Review of Systems Review of Systems: All systems reviewed & are unremarkable except as noted in HPI & below Physical Exam Constitutional: WD/WN, vitals as above + obese Eyes: PERRL, conjunctivae normal, anicteric sclerae ENMT: external ear and nose normal, oropharynx normal Neck: trachea midline, no thyromegaly + thick neck Respiratory: normal respiratory effort; no respiratory distress Auscultation: no rhonchi and no wheezes Cardiovascular: Rate/Rhythm: regular rate and + irregularly irregular Heart Sounds: normal S1 and normal S2; no murmur Extremities: normal capillary refill; no edema Gastrointestinal (Abdomen): normal bowel sounds, soft, nontender, no hepatosplenomegaly Musculoskeletal: no cyanosis or clubbing, extremities motor strength 5/5 Skin: + rash (upper middle back, less red today), + ulcer (venous stasis ulcers), + dry skin and + erythema (venous stasis changes) Neurologic: patellar DTR's 2+ bilat, sensation intact and PERRL, EOMI, accommodation nl, no face palsy, no dysarthria Psychiatric: A+Ox3, euthymic affect Lymphatic: no cervical or axillary lymphadenopathy Results & Data Vital Signs (Past 12 Hours) Vital Signs Temp Pulse Resp BP Pulse Ox 10/11/19 15:10 70 20 97 10/11/19 14:49 36.6 C 61 20 156/67 H 97 10/11/19 11:35 84 20 86 L 10/11/19 07:55 67 18 97 10/11/19 07:00 36.4 C L 69 18 170/51 H 99 Laboratory Results Laboratory Results - last 24 hr 10/10/19 10/10/19 10/11/19 16:41 20:17 07:55 Sodium Potassium Chloride Carbon Dioxide Anion Gap BUN Creatinine Est Cr Clr Drug Dosing Est GFR ( Amer) Est GFR (Non-Af Amer) BUN/Creatinine Ratio Glucose POC Glucose 98 182 H 256 H Calcium 10/11/19 10/11/19 09:24 11:44 Sodium 136 Potassium 3.9 Chloride 98 Carbon Dioxide 33 H Anion Gap 4.0 BUN 27 H Creatinine 1.17 Est Cr Clr Drug Dosing 54.8 Est GFR ( Amer) 52.8 Est GFR (Non-Af Amer) 45.5 BUN/Creatinine Ratio 22.9 H Glucose 275 H POC Glucose 227 H Calcium 9.0 Medications Administered Current Inpatient Medications Acetaminophen (Tylenol) 650 mg PO Q4H PRN PRN Reason: Pain or Fever Stop: 11/04/19 21:42 Al Hydrox/Mg Hydrox/Simethicone (Maalox) 15 ml PO Q4H PRN PRN Reason: Dyspepsia Stop: 11/04/19 21:42 Albuterol (Ventolin 0.083% 2.5mg/3ml) 2.5 mg INH Q4 PRN PRN Reason: shortness of breath or wheezin Stop: 11/04/19 21:42 Last Admin: 10/06/19 13:59 Dose: 2.5 mg Documented by: Albuterol (Ventolin Hfa) 2 puffs INH Q4H PRN PRN Reason: Shortness Of Breath Or Wheezin Stop: 11/04/19 21:42 Albuterol (Duoneb) 3 ml NEB Q4R [facility] Stop: 11/05/19 18:59 Last Admin: 10/11/19 15:08 Dose: 3 ml Documented by: Allopurinol (Zyloprim) 100 mg PO DAILY@1800 [facility] Stop: 11/05/19 17:59 Last Admin: 10/10/19 18:03 Dose: 100 mg Documented by: Atorvastatin Calcium (Lipitor) 40 mg PO DAILY [facility] Stop: 11/05/19 08:59 Last Admin: 10/11/19 09:20 Dose: 40 mg Documented by: Bumetanide (Bumex) 3 mg PO BID17 [facility] Stop: 11/09/19 08:59 Last Admin: 10/11/19 09:21 Dose: 3 mg Documented by: Dextrose (Dextrose 50%) 25 - 50 ml IV UD PRN; Protocol PRN Reason: Hypoglycemia Protocol Stop: 11/04/19 21:42 Diltiazem HCl (Cardizem Cd) 240 mg PO QAM [facility] Stop: 11/05/19 08:59 Last Admin: 10/11/19 09:21 Dose: 240 mg Documented by: Fluticasone Furoate (Arnuity Ellipta 200mcg) 1 puffs INH QAM [facility] Stop: 11/05/19 08:59 Last Admin: 10/11/19 09:22 Dose: 1 puffs Documented by: Glucagon (Glucagen) 1 mg SQ UD PRN; Protocol PRN Reason: Hypoglycemia Protocol Stop: 11/04/19 21:42 Glucose (Dex4 Glucose) 4 - 8 tabs PO UD PRN; Protocol PRN Reason: Hypoglycemia Protocol Stop: 11/04/19 21:42 Glucose (Glucose 40%) 15 - 30 gm PO UD PRN; Protocol PRN Reason: Hypoglycemia Protocol Stop: 11/04/19 21:42 Guaifenesin (Mucinex) 1,200 mg PO Q12 [facility] Stop: 11/05/19 20:59 Last Admin: 10/11/19 09:21 Dose: 1,200 mg Documented by: Insulin Aspart (Novolog Aspart) 0 units SC ACHS [facility] Stop: 11/04/19 22:14 Last Admin: 10/11/19 12:30 Dose: 26 units Documented by: Insulin Human NPH (Novolin N Nph) 0 units SC BIDM [facility]; Protocol Stop: 11/05/19 16:59 Last Admin: 10/11/19 09:25 Dose: 40 units Documented by: Levothyroxine Sodium (Synthroid) 50 mcg PO DAILYBB [facility] Stop: 11/05/19 06:29 Last Admin: 10/11/19 05:46 Dose: 50 mcg Documented by: Magnesium Hydroxide (Milk Of Magnesia) 30 ml PO Q12H PRN PRN Reason: Constipation Stop: 11/04/19 21:42 Magnesium Oxide (Mag-Ox) 400 mg PO DAILY@1200 [facility] Stop: 11/05/19 11:59 Last Admin: 10/11/19 12:29 Dose: 400 mg Documented by: Metoprolol Succinate (Toprol Xl) 150 mg PO DAILY [facility] Stop: 11/05/19 08:59 Last Admin: 10/11/19 09:20 Dose: 150 mg Documented by: Miscellaneous (Carbohydrates For Hypoglycemia) 15 - 30 gm PO UD PRN PRN Reason: Hypoglycemia Protocol Stop: 11/04/19 21:42 Miscellaneous Information (Consult Glycemic Management Pharmacy) 1 ea N/A UD PRN; Protocol PRN Reason: Consult Stop: 11/04/19 21:52 Nystatin (Mycostatin) 1 appln EXT TID [facility] Stop: 11/05/19 08:59 Last Admin: 10/11/19 12:32 Dose: Not Given Documented by: Ondansetron HCl (Zofran) 4 mg IV Q6H PRN PRN Reason: Nausea Stop: 11/04/19 21:42 Polyethylene Glycol (Miralax Powder Packet) 17 gm PO DAILY PRN PRN Reason: Constipation Stop: 11/04/19 21:42 Potassium Chloride (Klor-Con M20) 40 meq PO QAM [facility] Stop: 11/05/19 08:59 Last Admin: 10/11/19 09:21 Dose: 40 meq Documented by: Rivaroxaban (Xarelto) 15 mg PO DAILY@1800 [facility] Stop: 11/05/19 17:59 Last Admin: 10/10/19 18:04 Dose: 15 mg Documented by: Vitamin D (Vitamin D3) 2,000 units PO DAILY@1200 [facility] Stop: 11/05/19 11:59 Last Admin: 10/11/19 12:28 Dose: 2,000 units Documented by: Zinc Acetate/Diphenhydramine (Benadryl Extra Strength) 1 appln EXT Q6H PRN PRN Reason: itch Stop: 11/04/19 21:42 PG Care Time/CCT Total # of Minutes Spent Total Time Spent with Patient: Total time spent is greater than 50% in coordination of care (as documented) at patient's floor/unit and/or counseling patient: Coding Level of Care Code 03572 Subseq Hosp Care Lvl 2 Diagnoses Acute and chronic respiratory failure J96.20 Acute exacerbation of congestive heart failure I50.9 COPD (chronic obstructive pulmonary disease) J44.9 Obstructive sleep apnea G47.33 Atrial fibrillation I48.91 Hypertension I10 Diabetes mellitus with diabetic polyneuropathy E11.42 Diabetes mellitus type: type 2 Diabetes mellitus prison insulin use: unspecified supervisor intermediates insulin use status Hyperlipidemia E78.5 (1) Diabetes mellitus with diabetic polyneuropathy Diabetes mellitus type: type 2 Diabetes mellitus supervisor intermediates insulin use: unspecified prison insulin use status Qualified Code(s): E11.42 - Type 2 d iabetes mellitus with diabetic polyneuropathy
[2019-10-11] MEDS: RIVAROXABAN 15 MG TAB PO SCH (16:59)
[2019-10-11] MEDS: allopurinoL 100 MG TAB PO SCH (16:59)
[2019-10-12] MEDS: ALBUT/IPRATROP 3MG/0.5MG NEB 3 ML VIAL NEB SCH ×6 (03:22→23:18)
[2019-10-12] MEDS: LEVOTHYROXINE SODIUM 50 MCG TABLET PO SCH (06:11)
[2019-10-12] MEDS: BUMETANIDE 1 MG TAB PO SCH ×2 (08:37→17:49)
[2019-10-12] MEDS: METOPROLOL SUCC 50MG EXT REL TAB PO SCH (08:38)
[2019-10-12] MEDS: ATORVASTATIN 40 MG TAB PO SCH (08:38)
[2019-10-12] MEDS: dilTIAZem HCL 240 MG CAPCR PO SCH (08:38)
[2019-10-12] MEDS: guaiFENesin 600 MG TABCR PO SCH ×2 (08:39→21:03)
[2019-10-12] MEDS: FLUTICASONE FUROATE 200MCG 14 PUFFS/INHALER INH SCH (08:39)
[2019-10-12] MEDS: POTASSIUM CHLORIDE 20 MEQ TABCR PO SCH (08:39)
[2019-10-12] MEDS: INSULIN HUMAN NPH SC SCH ×2 (08:44→17:47)
[2019-10-12] MEDS: INSULIN ASPART 100 UNITS/ML VIAL SC SCH ×4 (08:49→21:09)
[2019-10-12 09:58] LABS: Hematocrit (blood only) 41.1 % (37-47); Hemoglobin 13.3 g/dL (12.0-16.0); Mean Corpuscular Hgb Conc 32.4 g/dL (32-36); Mean Corpuscular Volume 89.5 fL (80-100); Mean Platelet Volume 9.9 fL (7.4-10.4); Platelet Count 175 K/uL (130-400); RDW Coefficient of Variation 16.1 % (11.5-14.5); RDW Standard Deviation 52.4 fL (36.4-46.3); Red Blood Count 4.59 M/uL (4.2-5.4); White Blood Count 6.54 K/uL (4.8-10.8)
[2019-10-12 10:46] LABS: BUN Creatinine Ratio 22.2 (10-20); Calcium 8.9 mg/dl (8.5-10.1); Creatinine Clr Calc Pharmacy 57.7 ml/min; Est GFR (African American) 56.3; Est GFR (Non-African American) 48.5; Potassium 3.7 mmol/L (3.5-5.1)
--- NOTE | 2019-10-12 10:51 | Hospitalist Progress Note ---
Date of Service October 12, 2019 Assessment & Plan (1) Acute exacerbation of congestive heart failure: * Acute on Chronic Diastolic CHF ; CXR does reveal fluid accumulation however assessing volume is difficult due to body habitus; BNP is normal, however she is diuresing * Treated with increased dose of Bumex 4 mg IV BID for several days -- cumulative output 20L, net negative 13.5L * ECHO Oct 2016 -- normal LV size/systolic function EF 55-60%. No definite wma. Moderate LVH. RVSP 39mmHg * Weight 133.4kg -- down from 142.5kg on admission -- appears to be close to baseline * Daily Weights, I&Os * Declined follow up with heart failure clinic * Continue Bumex 3mg PO BID -- would continue at discharge and have close follow up with Cardiology -- patient follows with Dr. Gil on Fridays at [place] office (2) Acute and chronic respiratory failure: * Improving -- 97% on 3L this morning -- wears 3L at baseline at home * Multifactorial - primary cause is acute on chronic diastolic heart failure, some mild COPD exacerbation (3) COPD (chronic obstructive pulmonary disease): * Symptoms improve with Nebs * Will continue DYLAN Duonebs with PRN use in between; Mucinex BID; Fluticasone daily * Discussed systemic steroids but she reports unfavorable symptoms on them - can hold on these as she has no wheezing (4) Obstructive sleep apnea: * Chronic. Stable. Continue CPAP (5) Atrial fibrillation: * Paroxysmal - was found in A Fib/Fluttter on monitor with rate 60-70s; patient reports she notices her A Fib more often lately and faster rates * Continue Diltiazem 240 mg daily, Metoprolol 150 mg daily; Xarelto 15 mg daily --creatinine clearance appears to be >50 on most occasion, however patient on renal dosing of Xarelto -- would follow up outpatient with cardiology * Rates in 70s during my examination (6) Hypertension: * Chronic. Currently well controlled, 122/71 * Continue Diltiazem and Metoprolol; currently increased Bumex to 3mg PO BID (to be continued at discharge) (7) Diabetes mellitus with diabetic polyneuropathy: * Hold metformin; Glycemic control per pharmacy. * monitor for hypoglycemia, no episodes during stay (8) Hyperlipidemia: * Continue Atorvastatin 40 mg daily -- changed dosing to HS, as patient takes this medication at night Code Status: Discussed with patient on 10/06. She would allow chest compressions and shock however does not want intubated/mechanical ventilation. Discussed scenario of acute decompensation in respiratory status if she would want intubated and she again declines wanting any form of ventilation. States her knows her wishes as well and has a living will. Asked if it could be brought in. Changed to a conditional code. Disposition: 2 step prior to discharge, possible tomorrow Supervising Physician Co-Signing Physician Notes OSIEL Supervision Note: I did not personally see or examine the patient today, but I verified all valladares points of OSIEL Leblanc's assessment and plan with the following exceptions/additions: None Subjective Patient evaluated up to chair this morning with her . States her cough is dry, non-productive, but is much improved from on admission. She states the swelling of her legs in much improved from when she came in, and described that previous sensation as "heaviness" in her legs which prevented her from ambulating. She states she is aware when she has extra fluid and has taken extra bumex in the past, but recently it has "caught up with her." She states sh e has a scale at home and demonstrates ability to use judgement when using prn diuretics. She follows with Dr. Gil and sees him on Saturday's when is at the office near their house, as they have multiple appointments between her and her that can get quite hectic. She states she feels almost back to her baseline self, but believes one more day would be beneficial to ensure that her breathing is stabilized. Denies any chest pain, headache, visual changes, sputum production, abdominal pain, dysuria, fever, chills. Review of Systems Review of Systems: All systems reviewed & are unremarkable except as noted in HPI & below Constitutional: no fever and no chills Eyes: no diplopia and no problem reported Ear, Nose, Mouth, Throat: no sore throat and no dysphagia Respiratory: + cough (dry), + dyspnea and + dyspnea on exertion Cardiovascular: + edema (improved); no chest pain and no palpitations Gastrointestinal: no abdominal pain, no nausea and no vomiting Genitourinary: no dysuria and no hematuria Musculoskeletal: no myalgia and no body aches Integumentary: no rash and no lesions dry skin right LE Neurologic: no numbness and no paresthesia Physical Exam Constitutional: WD/WN, vitals as above no acute distress Eyes: PERRL, conjunctivae normal, anicteric sclerae ENMT: external ear and nose normal, oropharynx normal Neck: trachea midline, no thyromegaly Respiratory: normal respiratory effort; no respiratory distress and no labored breathing Auscultation: + diminished lung sounds (diffusely) and + crackles (bibasilar crackles) Cardiovascular: Rate/Rhythm: + irregularly irregular Heart Sounds: no murmur Extremities: + edema (1+ b/l le) Gastrointestinal (Abdomen): normal bowel sounds, soft, nontender, no hepatosplenomegaly Musculoskeletal: no cyanosis or clubbing, extremities motor strength 5/5 Skin: no rashes, warm and dry chronic venous stasis b/l le Neurologic: PERRL, EOMI, accommodation nl, no face palsy, no dysarthria Psychiatric: A+Ox3, euthymic affect Lymphatic: no cervical or axillary lymphadenopathy Results & Data Vital Signs (Past 12 Hours) Vital Signs Temp Pulse Resp BP BP Pulse Ox 10/12/19 07:00 36.7 C 70 18 123/73 99 10/12/19 06:57 73 18 97 10/12/19 03:24 73 16 97 10/12/19 00:18 36.6 C 73 20 159/75 H 96 10/11/19 23:33 77 18 97 Intake and Output 10/12/19 10/12/19 10/12/19 06:59 14:59 22:59 Intake Total 700 / 1220 400 / 400 Output Total 1200 / 2810 1250 / 1250 Balance -500 / -1590 -850 / -850 Intake: Oral 700 / 1220 400 / 400 Output: Urine 1200 / 2810 1250 / 1250 Other: Weight 133.4 kg 133.4 kg Patient Weight 10/13/19 06:59 Weight 133.4 kg Laboratory Results 10/12/19 10/12/19 10/12/19 Range/Units 16:24 11:38 09:25 WBC (4.8-10.8) K/uL RBC (4.2-5.4) M/uL Hgb (12.0-16.0) g/dL Hct (37-47) % MCV (80-100) fL MCH (25-34) pg MCHC (32-36) g/dL RDW Std Deviation (36.4-46.3) fL RDW Coeff of Davina (11.5-14.5) % Plt Count (130-400) K/uL MPV (7.4-10.4) fL Sodium 137 (136-145) mmol/L Potassium 3.7 (3.5-5.1) mmol/L Chloride 98 (98-107) mmol/L Carbon Dioxide 37 H (21-32) mmol/L Anion Gap 2.0 L (3-11) BUN 25 H (7-18) mg/dl Creatinine 1.11 (0.6-1.2) mg/dl Est Cr Clr Drug Dosing 57.7 ml/min Est GFR ( Amer) 56.3 Est GFR (Non-Af Amer) 48.5 BUN/Creatinine Ratio 22.2 H (10-20) Glucose 215 H (70-99) mg/dl POC Glucose 137 H 179 H (70-99) mg/dl Calcium 8.9 (8.5-10.1) mg/dl 10/12/19 10/12/19 10/11/19 Range/Units 09:25 07:36 20:23 WBC 6.54 (4.8-10.8) K/uL RBC 4.59 (4.2-5.4) M/uL Hgb 13.3 (12.0-16.0) g/dL Hct 41.1 (37-47) % MCV 89.5 (80-100) fL MCH 29.0 (25-34) pg MCHC 32.4 (32-36) g/dL RDW Std Deviation 52.4 H (36.4-46.3) fL RDW Coeff of Davina 16.1 H (11.5-14.5) % Plt Count 175 (130-400) K/uL MPV 9.9 (7.4-10.4) fL Sodium (136-145) mmol/L Potassium (3.5-5.1) mmol/L Chloride (98-107) mmol/L Carbon Dioxide (21-32) mmol/L Anion Gap (3-11) BUN (7-18) mg/dl Creatinine (0.6-1.2) mg/dl Est Cr Clr Drug Dosing ml/min Est GFR ( Amer) Est GFR (Non-Af Amer) BUN/Creatinine Ratio (10-20) Glucose (70-99) mg/dl POC Glucose 129 H 155 H (70-99) mg/dl Calcium (8.5-10.1) mg/dl PG Care Time/CCT Total # of Minutes Spent Total Time Spent with Patient: Total time spent is greater than 50% in coordination of care (as documented) at patient's floor/unit and/or counseling patient: Coding Level of Care Code 70435 Subseq Hosp Care Lvl 2 Diagnoses Acute exacerbation of congestive heart failure I50.9 Acute and chronic respiratory failure J96.20 COPD (chronic obstructive pulmonary disease) J44.9 Obstructive sleep apnea G47.33 Atrial fibrillation I48.91 Hypertension I10 Diabetes mellitus with diabetic polyneuropathy E11.42 Diabetes mellitus group home insulin use: unspecified group home insulin use status Diabetes mellitus type: type 2 Hyperlipidemia E78.5 (1) Diabetes mellitus with diabetic polyneuropathy Diabetes mellitus terminal worker insulin use: unspecified terminal worker insulin use status Diabetes mellitus type: type 2 Qualified Code(s): E11.42 - Type 2 diabetes mellitus with diabetic polyneuropathy
[2019-10-12] MEDS: NYSTATIN POWDER 15GM BTL EXT SCH ×3 (11:29→21:10)
[2019-10-12] MEDS: CHOLECALCIFEROL 1,000 UNITS 25 MCG TAB PO SCH (12:45)
[2019-10-12] MEDS: MAGNESIUM OXIDE 400 MG TAB PO SCH (12:45)
[2019-10-12] MEDS ORDERED: COUGH DROP (SUGAR FREE) LOZ 24 LOZ/1 BOX BUCCAL STA (14:14)
--- NOTE | 2019-10-12 16:44 | Pharmacy Report ---
Pharmacy Glycemic Short Note 2 - Date of Service October 12, 2019 - Glycemic Short BSG Results (Last 24 hours): 10/11/19 10/11/19 10/12/19 16:37 20:23 07:36 Glucose POC Glucose 180 H 155 H 129 H 10/12/19 10/12/19 10/12/19 09:25 11:38 16:24 Glucose 215 H POC Glucose 179 H 137 H ASSESSMENT: * Two day trend where one of the highest BSG's is at lunch and lowest is at dinner. Likely 2nd insulin stacking at lunch with increased effect of NPH adminsitered at breakfast * Will reduce max allowable dose for NPH * Will tighten Novolog CHO ratio at breakfast only and loosen correction factor with all other meals PLAN FOR INPATIENT GLYCEMIC CONTROL: * Holding outpatient oral diabetes medications * Basal insulin * NPH per scale BIDM: 30 or 35 units based on BSG * Bolus insulin * NovoLog per scale ACHS * Goal Range: Low 110 mg/dL - High 140 mg/dL * Correction Factor: 15 mg/dL/unit at breakfast, 20 mg/dL/unit all others * Nutritional / Prandial insuli: 2.5 gCHO/unit at breakfast, 3 gCHO/unit all others * Please note that the plan above was derived based on current level of insulin resistance and hospital stress. These recommendations are appropriate for inpatient admission only. Plan of care upon discharge will need to be reassessed to avoid potential outpatient hypo/hyperglycemia. Thank you.
[2019-10-12] MEDS: allopurinoL 100 MG TAB PO SCH (17:49)
[2019-10-12] MEDS: RIVAROXABAN 15 MG TAB PO SCH (17:49)
[2019-10-13] MEDS: ALBUT/IPRATROP 3MG/0.5MG NEB 3 ML VIAL NEB SCH ×4 (02:45→16:01)
[2019-10-13] MEDS: LEVOTHYROXINE SODIUM 50 MCG TABLET PO SCH (05:57)
[2019-10-13] MEDS ORDERED: INSULIN ASPART 100 UNITS/ML VIAL SC SCH (07:30)
[2019-10-13] MEDS: INSULIN HUMAN NPH SC SCH (08:01)
[2019-10-13] MEDS: BUMETANIDE 1 MG TAB PO SCH (08:36)
[2019-10-13] MEDS: FLUTICASONE FUROATE 200MCG 14 PUFFS/INHALER INH SCH (08:36)
[2019-10-13] MEDS: dilTIAZem HCL 240 MG CAPCR PO SCH (08:37)
[2019-10-13] MEDS: guaiFENesin 600 MG TABCR PO SCH (08:38)
[2019-10-13] MEDS: POTASSIUM CHLORIDE 20 MEQ TABCR PO SCH (08:38)
[2019-10-13] MEDS: NYSTATIN POWDER 15GM BTL EXT SCH ×2 (08:39→13:04)
[2019-10-13] MEDS: METOPROLOL SUCC 50MG EXT REL TAB PO SCH (08:40)
[2019-10-13 09:58] LABS: BUN Creatinine Ratio 24.2 (10-20); Calcium 9.4 mg/dl (8.5-10.1); Est GFR (African American) 51.2; Est GFR (Non-African American) 44.2; Potassium 3.9 mmol/L (3.5-5.1)
[2019-10-13] MEDS: CHOLECALCIFEROL 1,000 UNITS 25 MCG TAB PO SCH (12:23)
[2019-10-13] MEDS: MAGNESIUM OXIDE 400 MG TAB PO SCH (12:23)
[2019-10-13] MEDS: INSULIN ASPART 100 UNITS/ML VIAL SC SCH (13:00)
--- NOTE | 2019-10-13 15:19 | Discharge Summary ---
Date of Service October 13, 2019 Admission HPI Per Admitting Provider The patient is a 74 years old female with past medical history of chronic diastolic congestive heart failure, COPD, chronic respiratory failure with hypoxia on 2 L of oxygen at home, diabetes mellitus type 2 with polyneuropathy, hypertension, hyperlipidemia, atrial fibrillation, hypothyroidism who presented with a shortness of breath for 2 days. Patient denies gaining any weight and reported taking her medicine regularly. Patient denies fever, chills, chest pain, abdominal pain, frequency, urgency. EKG shows sinus rhythm with first- degree AV block and premature atrial complexes with nonspecific ST abnormality in V4 V5 and V6 and QT interval of 406/456. Labs are reviewed which shows sodium 137, potassium 3.9, chloride 99, anion gap 5, BUN 22, creatinine 1.15, GFR 46.6, glucose 182, calcium 9.1, magnesium 1.9, total bilirubin 0.6, AST 32, ALT 46, alkaline phosphatase 146, troponin 0.015, BNP 529, total protein 7.4, albumin 3.4, globulin 4 lipase 147, TSH 2.8. Urine yellow, urine protein 2+, urine ketones high trace, urine blood high trace, leukocyte esterase trace, negative urine nitrates, negative urine bacteria. Positive epithelial cells. Chest x-ray shows congestive heart failure, more moderate cardiomegaly, small right pleural effusion, prominent pulmonary vasculature. Decision was made to admit patient to PCU on telemetry for acute exacerbation of congestive heart failure with right pleural effusion and edema. Admission Exam Per Admitting Provider Constitutional: WD/WN, vitals as above well developed and + morbidly obese Eyes: PERRL, conjunctivae normal, anicteric sclerae ENMT: external ear and nose normal, oropharynx normal Neck: trachea midline, no thyromegaly Respiratory: + respiratory distress, + labored breathing, + uses accessory muscles and + cough Auscultation: + crackles and + wheezes Cardiovascular: Heart Sounds: normal S1 and normal S2 Palpation: + palpable S3 and + palpable S4 Vessels: + JVD and dorsalis pedis pulses present Gastrointestinal (Abdomen): normal bowel sounds, soft, nontender, no hepatosplenomegaly Musculoskeletal: no cyanosis or clubbing, extremities motor strength 5/5 Skin: no rashes, warm and dry Neurologic: patellar DTR's 2+ bilat, sensation intact Psychiatric: A+Ox3, euthymic affect Lymphatic: no cervical or axillary lymphadenopathy Principal Diagnosis Acute on Chronic CHF Exacerbation Discharge Exam Constitutional WD/WN, vitals as above no acute distress Eyes PERRL, conjunctivae normal, anicteric sclerae ENMT external ear and nose normal, oropharynx normal Neck trachea midline, no thyromegaly Respiratory normal respiratory effort; no respiratory distress and no labored breathing Auscultation: + diminished lung sounds (diffusely) and + crackles (faint bibasilar crackles) Cardiovascular Rate/Rhythm: + irregularly irregular Heart Sounds: no murmur Extremities: + edema (1+ nonpitting b/l le) Gastrointestinal (Abdomen) normal bowel sounds, soft, nontender, no hepatosplenomegaly Musculoskeletal no cyanosis or clubbing, extremities motor strength 5/5 Skin no rashes, warm and dry Neurologic PERRL, EOMI, accommodation nl, no face palsy, no dysarthria Psychiatric A+Ox3, euthymic affect Lymphatic no cervical or axillary lymphadenopathy Discharge Data Allergies Allergy/AdvReac Type Severity Reaction Status Date / Time Penicillins Allergy Intermediate HIVES Verified 10/16/19 09:41 mineral oil Allergy Unknown Verified 10/16/19 09:41 metronidazole AdvReac Unknown NAUSEA Verified 10/16/19 09:41 ceresin [From Eucerin] AdvReac Redness of Verified 10/16/19 09:41 Skin emollient combination no.33 AdvReac Redness of Verified 10/16/19 09:41 [From Eucerin] Skin isopropyl myristate AdvReac Redness of Verified 10/16/19 09:41 [From Eucerin] Skin lanolin alcohols AdvReac Redness of Verified 10/16/19 09:41 [From Eucerin] Skin mineral oil [From Eucerin] AdvReac Redness of Verified 10/16/19 09:41 Skin soap [From Eucerin] AdvReac Redness of Verified 10/16/19 09:41 Skin water [From Eucerin] AdvReac Redness of Verified 10/16/19 09:41 Skin Consultations 10/05/19 19:04 ED Decision to Admit Stat 10/06/19 16:17 Consult Cardiology Routine Hospital Course (1) Acute exacerbation of congestive heart failure: * Acute on Chronic Diastolic CHF ; CXR revealed fluid accumulation however assessing volume difficult due to body habitus; BNP is normal, however did diuresis with net negative ~13.5L. * Patient initially on 2 mg Bumex PO BID as outpatient -- increased to 3mg PO BID on discharge * Weight on admission 142.5kg with weight at discharge 132.2kg * ECHO Oct 2016 -- normal LV size/systolic function EF 55-60%. No definite wma. Moderate LVH. RVSP 39mmHg * Declined follow up with heart failure clinic * Close follow up with Cardiology as outpatient -- patient follows with Dr. Gil on Fridays at [place] office (2) Acute and chronic respiratory failure: * POx as low as 86%. Multifactorial - primary cause is acute on chronic diastolic heart failure, some mild COPD exacerbation * Chronically wears 3L NC * Improved to 98% on 3L at discharge -- patient would benefit from CPAP but re fused to even discuss. Discussed nasal pillows and such, patient declined any further follow up to have sleep study/etc. (3) COPD (chronic obstructive pulmonary disease): * Symptoms improved with Nebs * Continued home medications at discharge, in addition to rec to continue mucinex * No need for systemic steroids, no wheezing during admission (4) Obstructive sleep apnea: * Chronic. Stable. Patient DOES NOT HAVE CPAP and NOT agreeable to having one secondary to claustrophobia (5) Atrial fibrillation: * Paroxysmal - was found in A Fib/Fluttter on monitor with rate 60-70s; patient reported she noticed A Fib more often lately and faster rates * Continued Diltiazem 240 mg daily, Metoprolol 150 mg daily; Xarelto 15 mg daily --creatinine clearance appears to be >50 on most occasion, however patient on renal dosing of Xarelto -- would follow up outpatient with cardiology and consider increasing dose to 20mg daily * Rates in 70s during examination prior to discharge (6) Hypertension: * Chronic. Continued Diltiazem and Metoprolol; Increased Bumex to 3mg PO BID and continued at discharge. (7) Diabetes mellitus with diabetic polyneuropathy: * Held metformin; Glycemic control per pharmacy during hospitalization * restart metformin on dc and continue insulin at home (8) Hyperlipidemia: * Continued Atorvastatin 40 mg daily -- changed dosing to HS, as patient takes this medication at night Discharged home with . Repeat labwork in the next 3 days to monitor kidney function. Increased potassium from 10meq to 40meq given increased diuretic Total Time Total Time Spent Total Time Spent (In Minutes): 60 Discharge Plan Discharge Items Patient Disposition: Home - Self-Care Reason For Visit: ACUTE CHF EXACERBATION,SOB Discharge Diagnosis: Congestive Heart Failure, Shortness of Breath Condition on Discharge: Fair Health Concerns: You have been hospitalized for an acute medical problem. During your stay at [facility], we have made an effort to correct the problem that brought you to the hospital while keeping you as comfortable as possible. Medications were used to bring your condition under control and your discharge instructions will include directions for any medications you should take after leaving the hospital. Please make sure you see your Primary Care Provider as part of your follow up plan. Activity: Resume your previous activity Non-emergency contact: Primary Care Provider and Labor Crew Supervisor Call non-emergency contact if: you have any medication questions and your symptoms worsen Follow-up/Referrals: Jaimee Sterling PA-C [Physician Principal Administrative Clerk] - 10/19/19 1:00 pm (Please, follow up with Dr. Gil's associate, Jaimee Sterling PA-C, on SaturdayOctober 19 at 1:00 pm. THIS APPOINTMENT WILL BE IN THE AMBIA OFFICE BECAUSE THERE WERE NO OPENINGS AT THE [facility] LOCATION, UNFORTUNATELY. The office is located in [address] of [facility], next to this hospital. If you have any questions, call the office at [phone].) Maxine Rboerts MD [Primary Care Provider] - 10/16/19 10:00 am (Please, follow up at [facility] with Dr. Roberts on SaturdayOctober 16 at 10:00 am. *If you need to change this appointment, call the office at [phone].) Diet: Carb Consistent or DM2, Heart Healthy and Low Sodium (2gm) Fluids: 1800ml (7 cups) Addtl Attending Provider Instructions: Your bumex has been increased to 3mg by mouth TWICE daily from your previous 2mg twice daily. You should weigh yourself every morning first thing. We have decided that your "dry weight" is approximately 290lb. You were found to be up to over 313 pounds on admission. If you see that your weight has gone up by greater than 3-4 pounds in less than a 24 hour period of time, you should call your doctor to see about additional diuretics. There has also been an increase in your potassium. You had previously been taking 10MEQ per day, but it has been increased to 40 per day, given the increase in your bumex. You should have repeat labs drawn on Saturday to monitor your kidney function. As appointment was also made for you on Saturday for cardiology. They may want to make any further adjustments based on your volume status and kidney function. Please keep all follow up appointments. Continue local wound care follow-up. Return to the emergency department if you develop worsening shortness of breath, chest pain, or for any symptoms that are concerning for you. It has been a pleasure being a part of the care team providing for you during this hospitalization. Take care! Call your Primary Care doctor if any of the following symptoms or problems start or get worse: * Shortness of breath or difficulty breathing * Wake up at night short of breath * Chest pain * Cough * Swelling of your hands, feet, or legs * More fatigued or tired with your normal activity * Palpitations - sudden fast heart beats WEIGHT * Weigh yourself every morning after using the bathroom. * Use the same scale. * Wear the same amount of clothing. * Write your weight down on a chart. * Call your Primary Care doctor if you gain more than 2-3 pounds in 1-2 days. MEDICATIONS * Use this discharge instruction sheet for medication instructions. * Take your medications at the time your doctor ordered. * Do not skip a dose of your medicines. * If you miss a dose of medicine, take it as soon as possible, but DO NOT DOUBLE A DOSE. * Read your medicine information when you get home. * Know all of the side effects of your medicine. If in doubt, ask your pharmacist * Call your Primary Care doctor's office if you have any side effects. * Be sure all of your doctors know what medicine and herbs you take (including cold, flu, and herbal medicine). Take the following with you to your follow-up doctor appointments: * Weight Chart * Medication List * List of questions Do not drink excessive alcohol, beer or wine. Pending Studies at Discharge: No Stand-Alone Forms: Call Back Authorization, My [facility] [employer], Smoking Cessation Medications and DC Order Prescriptions: New potassium chloride [Klor-Con M20] 20 mEq Tablet,Er Particles/Crystals 40 meq PO QAM Qty: 60 RF: 0 bumetanide 1 mg Tablet 3 mg PO BID17 30 Days Qty: 180 RF: 0 Arnuity Ellipta 200 mcg/actuation Blister With Device 1 inh inhalation QAM Qty: 14 RF: 0 Continued (DME) OneTouch Ultra Blue Test Strip strip See Dose Instructions .ROUTE .MEDSUPPLY Qty: 50 RF: 3 metoprolol succinate 100 mg tablet extended release 24 hr 150 mg PO DAILY Qty: 135 RF: 1 atorvastatin 40 mg tablet 40 mg PO DAILY Qty: 90 RF: 1 nystatin [Nystop] 100,000 unit/gram powder See Rx Instructions .ROUTE .COMPLEX Qty: 60 RF: 1 albuterol sulfate 90 mcg/actuation HFA aerosol inhaler 1 - 2 puff Inhalation Q4H PRN (Reason: Shortness Of Breath Or Wheezing) Qty: 18 RF: 5 allopurinol 100 mg tablet 100 mg PO DAILY@1800 Qty: 90 RF: 3 (DME) pen needle, diabetic [BD Ultra-Fine Micro Pen Needle] 32 gauge x 1/4" needle See Dose Instructions .ROUTE .MEDSUPPLY Qty: 50 RF: 0 (DME) Oxygen Home Liters Per Minute See Dose Instructions .ROUTE .MEDSUPPLY Qty: 1 RF: 0 albuterol sulfate 2.5 mg /3 mL (0.083 %) solution for nebulization 2.5 mg inhalation .COMPLEX PRN (Reason: shortness of breath or wheezing) RF: 0 diltiazem HCl 240 mg capsule,extended release 24hr 240 mg PO QAM RF: 0 insulin lispro [Humalog KwikPen Insulin] 100 unit/mL insulin pen 5 unit subcut DAILY@1200 RF: 0 metformin 500 mg tablet 500 mg PO TID RF: 0 acetaminophen [Tylenol Extra Strength] 500 mg Tablet 500 mg PO Q4H PRN (Reason: Pain) RF: 0 cholecalciferol (vitamin D3) [Vitamin D3] 2,000 unit Tablet 2,000 units PO DAILY@1200 RF: 0 Xarelto 15 mg Tablet 15 mg PO DAILY@1800 RF: 0 magnesium oxide 400 mg magnesium Tablet 400 mg PO DAILY@1200 RF: 0 Humulin 70/30 U-100 KwikPen 100 unit/mL (70-30) insulin pen 82 unit subcut QAM RF: 0 Humulin 70/30 U-100 KwikPen 100 unit/mL (70-30) Insulin Pen 85 unit SUBCUT HS RF: 0 levothyroxine 50 mcg tablet 50 mcg PO QAM RF: 0 Anti-Itch(diphenhyd) with Zinc 2-0.1 % Cream 1 applic EXT Q6H PRN (Reason: itch) Qty: 30 RF: 0 Discontinued potassium chloride 10 mEq capsule, extended release 10 meq PO QAM Qty: 90 RF: 1 bumetanide 2 mg tablet 2 mg PO BID RF: 0 Flovent HFA 110 mcg/actuation Hfa Aerosol Inhaler 1 puff INHALATION BID RF: 0 Discharge Orders: Discharge Order (Routine); Ordered 10/13/19 Ordered By: Magalis Mathews Admission Data Admit Date/Time: 10/05/19 20:39 Attending Provider: Magalis Mathews Admit Provider: Jan Kaur Primary Care Provider: Maxine Roberts Other Providers: Lewis Gil Other Interventions: Discharge Summary Assessment (RN) Last Done: 10/13/19 16:29 DC Date/Time DO NOT enter until pt leaves facility: 10/13/19 17:26 Supervising Physician Co-Signing Physician Notes PA Supervision Note: I personally saw and examined the patient. I verified all valladares points and agree with OSIEL Leblanc with the following exceptions and/or additions: Pt feelin gwell, anxious for discharge. Denies SOB. Has diuresed a tremendous amount of weight while here. VSS Obese, NAD RRR no mgr Lungs diminished, no wheezes or crackles Abd +BS soft NT ND Ext trace pitting edema No rashes Stable for dc to home on po diuretics with close Cardiology follow up Coding Level of Care Code D/C Day Management >30 mins Diagnoses Acute exacerbation of congestive heart failure I50.9 Acute and chronic respiratory failure J96.20 COPD (chronic obstructive pulmonary disease) J44.9 Obstructive sleep apnea G47.33 Atrial fibrillation I48.91 Hypertension I10 Diabetes mellitus with diabetic polyneuropathy E11.42 Diabetes mellitus terminologist insulin use: unspecified half-way insulin use status Diabetes mellitus type: type 2 Hyperlipidemia E78.5
[2019-10-13] MEDS ORDERED: ATORVASTATIN 40 MG TAB PO SCH (21:00)
== END 2019-10-13 17:26 | disposition home or self-care (01) | DRG 291 ==
LOC: ED 15:46 → 2S 20:39 → SUATTDRO 20:39 → 2S 21:20 → 4W 10-09 09:55

== ENCOUNTER 2020-04-21 18:11 | Inpatient (IN) ==
--- NOTE | 2020-04-21 19:05 | Emergency Department Note ---
History of Present Illness General Chief complaint: Illness Stated complaint: ILLNESS, Source: patient and RN notes reviewed Mode of arrival: EMS Limitations: no limitations History of Present Illness Provider complaint: Generalized illness Maximum Pain Intensity: 6 This patient is a 74-year-old female who presents emergency department with complaints of generalized illness. The patient states she woke up and "just did not feel well." Patient is tearful and anxious, stating she "just wants to feel better." She states she was just released from the wound care clinic yesterday after her lower extremity wounds have healed. She notes that she was in the bathroom today when she noted blood coming from her right third toe. She feels as though she may have hit it. Patient does have peripheral neuropathy. She takes her temperature twice daily and denies any fevers. She denies any significant covert exposures as she does not in general leave home. She does travel to the wound care clinic for treatment however her does most of the grocery shopping. Patient states she does urinate quite frequently but is on "water pills." She denies any pain or foul odor. Patient denies any fevers, chest pain, shortness of breath or abdominal pain. Home Medications Home Medications Medication Instructions Recorded Confirmed Type acetaminophen [Tylenol Extra 500 mg PO Q4H PRN 09/18/18 04/21/20 History Strength] cholecalciferol (vitamin D3) 2,000 units PO DAILY@1200 09/18/18 04/21/20 History [Vitamin D3] Oxygen Home #1 ea 04/03/19 03/22/20 History albuterol sulfate 2.5 mg INHALATION Q4 PRN ml 04/24/19 04/21/20 History albuterol sulfate 90 mcg/actuation 1 - 2 puff INHALATION Q4H PRN #18 09/01/19 04/21/20 Rx aerosol inhaler gm magnesium oxide 800 mg PO DAILY@1200 tab 10/27/19 04/21/20 History pen needle, diabetic 29 gauge x #200 ea 12/23/19 03/22/20 Rx 1/2" allopurinol 100 mg tablet 100 mg PO DAILY@1800 #90 tab 02/26/20 04/21/20 Rx atorvastatin 40 mg tablet 40 mg PO DAILY #90 tab 02/26/20 04/21/20 Rx bumetanide 1 mg tablet See Rx Instructions PO BID tab 02/26/20 04/21/20 History diltiazem HCl 240 mg 240 mg PO QAM #90 cap 02/26/20 04/21/20 Rx capsule,extended release 24 hr insulin lispro 100 unit/mL 10 units SUBCUT DAILY@1200 ml 02/26/20 04/21/20 History subcutaneous pen levothyroxine 50 mcg tablet 50 mcg PO QAM #90 tab 02/26/20 04/21/20 Rx metformin 500 mg tablet See Rx Instructions .ROUTE 02/26/20 04/21/20 Rx .COMPLEX #270 tablet metoprolol succinate 100 mg 150 mg PO QAM #90 tab 02/26/20 04/21/20 Rx tablet,extended release 24 hr potassium chloride 20 mEq 40 meq PO QAM #180 tab 02/26/20 04/21/20 Rx tablet,extended release(part/cryst) rivaroxaban 15 mg tablet 15 mg PO QPM #90 tab 02/26/20 04/21/20 Rx lidocaine 1 patch TOP DAILY PRN #15 ea 03/08/20 04/21/20 Rx blood sugar diagnostic See Rx Instructions .ROUTE 04/07/20 04/13/20 Rx .COMPLEX #100 strip insulin NPH-regular 70-30 U-100 82 unit SUBCUT QAM #160 ml 04/07/20 04/21/20 Rx insulin 100 unit/mL subcutaneous pen insulin NPH and regular human 85 unit SUBCUT QPM 04/21/20 04/21/20 History [Humulin 70/30 U-100 KwikPen] nystatin [Nystop] 1 applic TOPICAL TID 04/21/20 04/21/20 History Allergies Allergy/AdvReac Type Severity Reaction Status Date / Time Penicillins Allergy Intermediate HIVES Verified 04/21/20 19:35 mineral oil Allergy Unknown Verified 04/21/20 19:35 metronidazole AdvReac Unknown NAUSEA Verified 04/21/20 19:35 ceresin [From Eucerin] AdvReac Redness of Verified 04/21/20 19:35 Skin emollient combination no.33 AdvReac Redness of Verified 04/21/20 19:35 [From Eucerin] Skin isopropyl myristate AdvReac Redness of Verified 04/21/20 19:35 [From Eucerin] Skin lanolin alcohols AdvReac Redness of Verified 04/21/20 19:35 [From Eucerin] Skin mineral oil [From Eucerin] AdvReac Redness of Verified 04/21/20 19:35 Skin soap [From Eucerin] AdvReac Redness of Verified 04/21/20 19:35 Skin water [From Eucerin] AdvReac Redness of Verified 04/21/20 19:35 Skin Past Med/Surg History Medical History Acquired claw toe of left foot (Acute) Acquired claw toe of right foot (Acute) Atrial flutter (Inactive) Basal cell carcinoma, face (Resolved) Bilateral swelling of feet (Acute) Callus (Acute) DM (diabetes mellitus), type 2 Hypertension (Inactive) Hypertension (Inactive) Pleural effusion (Inactive) Sciatica (Inactive) Surgical History Hx of salpingo-oophorectomy, bilateral S/P hysterectomy (Chronic) S/P Mohs surgery for basal cell carcinoma (Acute) S/P thoracentesis (Inactive) Family History Father Coronary heart disease Myocardial infarction Mother Alzheimer disease Denies family history of Ovarian cancer Prostate cancer Breast cancer Colorectal cancer Social History Smoking Status: Never smoker Second Hand Exposure: No; Hx Alcohol Use: No Hx Substance Use: No Preferred Language: Georgian Communication Ability: Effective Visual Impairment: Limited Lapping 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 and A total of 10 systems reviewed and were otherwise negative Physical Exam Vital Signs Vital Signs - 24 hr 04/21/20 18:15 04/21/20 18:51 04/21/20 19:59 Temperature 36.7 C Temperature Source Oral Pulse Rate 94 H Pulse Rate [Apical] 75 Respiratory Rate 12 18 Respiratory Effort / Characteristics Non-Labored Non-Labored Respiratory Depth Normal Normal Blood Pressure 171/133 H Blood Pressure [Right Arm] 159/88 H Blood Pressure Mean 145 Blood Pressure Mean [Right Arm] 111 Pulse Oximetry 98 99 Oxygen Delivery Method Nasal Cannula Nasal Cannula Nasal Cannula Oxygen Flow Rate 4 4 4 Sepsis Recent Fever Within 48 Hours No Sepsis New/Unexplained Change in Mental Status N/A Sepsis Action Taken by Nursing No Action Required Vital signs reviewed. General: Chronically ill-appearing, morbidly obese, 74-year-old female, in no significant distress. HEENT: No scleral icterus, PERRLA, neck supple. Atraumatic. Cardiovascular: Regular rate and rhythm, no extra sounds. Pulmonary: Clear to auscultation bilaterally, normal work of breathing. Abdomen: Soft, nontender, nondistended, positive bowel sounds. Musculoskeletal: Atraumatic 2-3+ pitting edema in the bilateral lower extremities. Chronic venous stasis appearing changes from the proximal ennis through the ankle bilaterally. Patchy areas of dry and flaky skin. Third toe on the right foot with a chronic appearing blister with likely underlying ulcer and dried blood. Nail appears to be lifted. Significant fungal changes to the bilateral toenails. Peripheral sensation is poor. Neurologic: Patient awake alert and oriented x 3 Skin: Warm, dry, see above Course Administered Medications Vancomycin HCl 2,500 mg/ (Sodium Chloride) 550 mls @ 200 mls/hr IV NOW ONE Stop: 04/21/20 23:46 Last Admin: 04/21/20 21:28 Dose: 200 mls/hr Documented by: [id number] Discontinued Medications Furosemide (Lasix) 60 mg IV NOW STA Stop: 04/21/20 20:52 Last Admin: 04/21/20 21:28 Dose: 60 mg Documented by: [id number] Clindamycin Phosphate (Cleocin) 600 mg in 54 mls @ 100 mls/hr IV ONE ONE Stop: 04/21/20 21:36 Last Admin: 04/21/20 21:28 Dose: 100 mls/hr Documented by: [id number] Medical Decision Making Differential Diagnosis Differential diagnosis: Etiologies such as viral syndrome, otitis, pharyngitis, pneumonia, influenza, meningitis, urinary tract infection, septic arthritis, soft tissue infectious process, intra-abdominal process, sepsis, bacteremia, as well as others were entertained. Medical Records Attestation: I reviewed the patient's medical records. Home Medications Current Medication List: was personally reviewed by me Laboratory Data Attestation: I reviewed the patient's lab results. Result diagrams: 04/21/20 19:31 04/21/20 19:31 Lab Results 04/21/20 04/21/20 04/21/20 Range/Units 19:25 19:31 19:31 WBC (4.8-10.8) K/uL RBC (4.2-5.4) M/uL Hgb (12.0-16.0) g/dL Hct (37-47) % MCV (80-100) fL MCH (25-34) pg MCHC (32-36) g/dL RDW Std Deviation (36.4-46.3) fL RDW Coeff of Davina (11.5-14.5) % Plt Count (130-400) K/uL MPV (7.4-10.4) fL Immature Gran % (Auto) % Neut % (Auto) % Lymph % (Auto) % [place] % (Auto) % Eos % (Auto) % Baso % (Auto) % Neut # (Auto) (1.4-6.5) K/uL Lymph # (Auto) (1.2-3.4) K/uL [place] # (Auto) (0.11-0.59) K/uL Eos # (Auto) (0-0.5) K/uL Baso # (Auto) (0-0.2) K/uL Immature Gran # (Auto) (0.00-0.02) K/uL ESR 43 H (0-21) mm/hr Sodium (136-145) mmol/L Potassium (3.5-5.1) mmol/L Chloride (98-107) mmol/L Carbon Dioxide (21-32) mmol/L Anion Gap (3-11) BUN (7-18) mg/dl Creatinine (0.6-1.2) mg/dl Est Cr Clr Drug Dosing ml/min Est GFR ( Amer) Est GFR (Non-Af Amer) BUN/Creatinine Ratio (10-20) Glucose (70-99) mg/dl Lactate 1.6 (0.4-2.0) mmol/L Calcium (8.5-10.1) mg/dl Total Bilirubin (0.2-1) mg/dl AST (15-37) U/L ALT (12-78) U/L Alkaline Phosphatase (45-117) U/L Troponin I (0-0.045) ng/ml C-Reactive Protein (0-0.29) mg/dl Total Protein (6.4-8.2) gm/dl Albumin (3.4-5.0) gm/dl Globulin (2.5-4.0) gm/dl Albumin/Globulin Ratio (0.9-2) Urine Color Yellow Urine Appearance Clear (Clear) Urine pH 7.0 (4.5-7.5) Ur Specific [place] 1.012 (1.000-1.030) Urine Protein 1+ H (Negative) Urine Glucose (UA) Negative (Negative) Urine Ketones Negative (Negative) Urine Blood Negative (Negative) Urine Nitrite Negative (Negative) Urine Bilirubin Negative (Negative) Urine Urobilinogen Negative (Negative) Ur Leukocyte Esterase Negative (Negative) Urine WBC (Auto) 0 (0-5) /hpf Urine RBC (Auto) 0-4 (0-4) /hpf U Hyaline Cast (Auto) 1-5 (0-5) /lpf U Epithel Cells (Auto) 5-10 H (0-5) /lpf Urine Bacteria (Auto) Negative (Negative) 04/21/20 04/21/20 Range/Units 19:31 19:31 WBC 8.19 (4.8-10.8) K/uL RBC 4.18 L (4.2-5.4) M/uL Hgb 12.1 (12.0-16.0) g/dL Hct 38.3 (37-47) % MCV 91.6 (80-100) fL MCH 28.9 (25-34) pg MCHC 31.6 L (32-36) g/dL RDW Std Deviation 55.2 H (36.4-46.3) fL RDW Coeff of Davina 16.5 H (11.5-14.5) % Plt Count 168 (130-400) K/uL MPV 9.4 (7.4-10.4) fL Immature Gran % (Auto) 0.2 % Neut % (Auto) 74.5 % Lymph % (Auto) 16.0 % [place] % (Auto) 6.7 % Eos % (Auto) 2.2 % Baso % (Auto) 0.4 % Neut # (Auto) 6.10 (1.4-6.5) K/uL Lymph # (Auto) 1.31 (1.2-3.4) K/uL [place] # (Auto) 0.55 (0.11-0.59) K/uL Eos # (Auto) 0.18 (0-0.5) K/uL Baso # (Auto) 0.03 (0-0.2) K/uL Immature Gran # (Auto) 0.02 (0.00-0.02) K/uL ESR (0-21) mm/hr Sodium 140 (136-145) mmol/L Potassium 4.2 (3.5-5.1) mmol/L Chloride 98 (98-107) mmol/L Carbon Dioxide 38 H (21-32) mmol/L Anion Gap 4.0 (3-11) BUN 19 H (7-18) mg/dl Creatinine 1.10 (0.6-1.2) mg/dl Est Cr Clr Drug Dosing 56.8 ml/min Est GFR ( Amer) 56.9 Est GFR (Non-Af Amer) 49.1 BUN/Creatinine Ratio 17.7 (10-20) Glucose 159 H (70-99) mg/dl Lactate (0.4-2.0) mmol/L Calcium 8.7 (8.5-10.1) mg/dl Total Bilirubin 0.7 (0.2-1) mg/dl AST 23 (15-37) U/L ALT 27 (12-78) U/L Alkaline Phosphatase 150 H (45-117) U/L Troponin I < 0.015 (0-0.045) ng/ml C-Reactive Protein 0.45 H (0-0.29) mg/dl Total Protein 7.6 (6.4-8.2) gm/dl Albumin 3.3 L (3.4-5.0) gm/dl Globulin 4.3 H (2.5-4.0) gm/dl Albumin/Globulin Ratio 0.8 L (0.9-2) Urine Color Urine Appearance (Clear) Urine pH (4.5-7.5) Ur Specific [place] (1.000-1.030) Urine Protein (Negative) Urine Glucose (UA) (Negative) Urine Ketones (Negative) Urine Blood (Negative) Urine Nitrite (Negative) Urine Bilirubin (Negative) Urine Urobilinogen (Negative) Ur Leukocyte Esterase (Negative) Urine WBC (Auto) (0-5) /hpf Urine RBC (Auto) (0-4) /hpf U Hyaline Cast (Auto) (0-5) /lpf U Epithel Cells (Auto) (0-5) /lpf Urine Bacteria (Auto) (Negative) Imaging Data Radiologist's Impression: XR chest 1V portable CLINICAL HISTORY: illness dyspnea COMPARISON STUDY: 11/20/2019 FINDINGS: Moderate cardiomegaly. Prominent pulmonary vasculature. Small right pleural effusion. IMPRESSION: Congestive heart failure ACT 112: Negative or not required by law. The above report was generated using voice recognition software. It may contain grammatical, syntax or spelling errors. Electronically signed by: Richie Bowen M.D. 04/21/2020 8:23 PM Dictated: 04/21/202022 Transcribed: 04/21/202022 XR toe(s) RT min 2V CLINICAL HISTORY: third toe osteo? COMPARISON: None. DISCUSSION: Possible developing lucency of the distal aspects of the third fourth and fifth metatarsals. This may be projectional and/or artifactual. Osteomyelitis is not excluded. The phalanges appear intact. There is soft tissue edema over the third fourth and fifth toes. IMPRESSION: Developing subtle osteopenia of the distal aspects of the third fourth and fifth metatarsals. Possible early osteomyelitis is considered. ACT 112: Negative or not required by law. The above report was generated using voice recognition software. It may contain grammatical, syntax or spelling errors. Electronically signed by: Richie Bowen M.D. 04/21/2020 8:25 PM Dictated: 04/21/202023 Transcribed: 04/21/202023 ECG Data Attestation: I personally reviewed and interpreted this ECG as follows: Indication: + weakness Rate (beats per minute): 90 Rhythm: + atrial flutter ECG Intervals/blocks: + Normal QRS ECG [place]: + Left axis deviation ECG ST segments: + Nonspecific ST abnormalities ECG Findings: no PACs and no PVCs Blood Pressure Blood Pressure Findings: Elevated blood pressure Blood Pressure Disposition: further management by hospitalist ROMY Narrative This patient was evaluated and appeared to be in no significant distress. Patient is chronically debilitated with a morbidly obese body habitus. Venous stasis changes the bilateral lower extremities are present. There is ulceration and a lifted toenail on the right third toe. Patient has very little sensation. Laboratory work with support and osteomyelitis as does the x-ray of the toe. Blood cultures were obtained and the patient was medicated with IV vancomycin and clindamycin based on previous cultures. Chest x-ray reveals pulmonary vas cular congestion. Patient was medicated with 60 mg of IV Lasix. I did discuss the findings with the patient and her . Patient will be evaluated by the hospitalist service for further management. She is aware of the plan and agrees. Impression & Plan Osteomyelitis of third toe of right foot, Venous stasis dermatitis of both l ower extremities, CHF (congestive heart failure) Discharge Plan Visit Data Chief Complaint: Illness Stated Complaint: ILLNESS, ED Provider: Lina Alexander Discharge Problem: Osteomyelitis of third toe of right foot, Venous stasis dermatitis of both lower extremities, CHF (congestive heart failure) Forms Stand Alone Forms: [facility] [employer] Prescriptions Prescriptions: No Action albuterol sulfate 90 mcg/actuation HFA aerosol inhaler 1 - 2 puff Inhalation Q4H PRN (Reason: Shortness Of Breath Or Wheezing) Qty: 18 RF: 5 (DME) pen needle, diabetic [Unifine Pentips] 29 gauge x 1/2" needle See Rx Instructions .ROUTE .MEDSUPPLY Qty: 200 RF: 5 blood sugar diagnostic [OneTouch Ultra Blue Test Strip] Strip See Rx Instructions .ROUTE .COMPLEX Qty: 100 RF: 11 Humulin 70/30 U-100 KwikPen 100 unit/mL (70-30) insulin pen 82 unit subcut QAM Qty: 160 RF: 0 allopurinol 100 mg tablet 100 mg PO DAILY@1800 Qty: 90 RF: 0 atorvastatin 40 mg tablet 40 mg PO DAILY Qty: 90 RF: 0 diltiazem HCl 240 mg capsule,extended release 24hr 240 mg PO QAM Qty: 90 RF: 0 levothyroxine 50 mcg tablet 50 mcg PO QAM Qty: 90 RF: 0 insulin lispro [Humalog KwikPen Insulin] 100 unit/mL insulin pen 10 units subcut DAILY@1200 RF: 0 metformin 500 mg tablet See Rx Instructions .ROUTE .COMPLEX Qty: 270 RF: 0 metoprolol succinate 100 mg tablet extended release 24 hr 150 mg PO QAM Qty: 90 RF: 0 potassium chloride [Klor-Con M20] 20 mEq tablet,ER particles/crystals 40 meq PO QAM Qty: 180 RF: 0 Xarelto 15 mg tablet 15 mg PO QPM Qty: 90 RF: 0 bumetanide 1 mg tablet See Rx Instructions PO BID RF: 0 (DME) Oxygen Home Liters Per Minute See Dose Instructions .ROUTE .MEDSUPPLY Qty: 1 RF: 0 albuterol sulfate 2.5 mg /3 mL (0.083 %) solution for nebulization 2.5 mg inhalation Q4 PRN (Reason: shortness of breath or wheezing) RF: 0 Humulin 70/30 U-100 KwikPen 100 unit/mL (70-30) insulin pen 85 unit SUBCUT QPM RF: 0 nystatin [Nystop] 100,000 unit/gram powder 1 applic topical TID RF: 0 acetaminophen [Tylenol Extra Strength] 500 mg Tablet 500 mg PO Q4H PRN (Reason: Pain) RF: 0 cholecalciferol (vitamin D3) [Vitamin D3] 2,000 unit Tablet 2,000 units PO DAILY@1200 RF: 0 magnesium oxide 400 mg magnesium tablet 800 mg PO DAILY@1200 RF: 0 lidocaine 5 % adhesive patch,medicated 1 patch TOP DAILY PRN (Reason: pain) Qty: 15 RF: 0 Discharge Problem: CHF (congestive heart failure) Qualifiers: Heart failure type: unspecified Heart failure chronicity: chronic Qualified Code(s): I50.9 - Heart failure, unspecified
[2020-04-21 19:41] LABS: Basophils # (auto) 0.03 K/uL (0-0.2); Basophils % (auto) 0.4 %; Eosinophils # (auto) 0.18 K/uL (0-0.5); Eosinophils % (auto) 2.2 %; Hematocrit (blood only) 38.3 % (37-47); Hemoglobin 12.1 g/dL (12.0-16.0); Immature Granulocytes # (auto) 0.02 K/uL (0.00-0.02); Immature Granulocytes % (auto) 0.2 %; Lymphocytes # (auto) 1.31 K/uL (1.2-3.4); Mean Corpuscular Hemoglobin 28.9 pg (25-34); Mean Corpuscular Hgb Conc 31.6 g/dL (32-36); Mean Corpuscular Volume 91.6 fL (80-100); Mean Platelet Volume 9.4 fL (7.4-10.4); Monocytes # (auto) 0.55 K/uL (0.11-0.59); Monocytes % (auto) 6.7 %; Neutrophils % (auto) 74.5 %; Platelet Count 168 K/uL (130-400); RDW Coefficient of Variation 16.5 % (11.5-14.5); RDW Standard Deviation 55.2 fL (36.4-46.3); Red Blood Count 4.18 M/uL (4.2-5.4); White Blood Count 8.19 K/uL (4.8-10.8)
[2020-04-21 19:57] LABS: Appearance Urine Clear (Clear); Bacteria Urine Automated Negative (Negative); Bilirubin Urine Negative (Negative); Blood Urine Negative (Negative); Color Urine Yellow; Glucose Urine UA Negative (Negative); Ketones Urine Negative (Negative); Leukocyte Esterase Urine Negative (Negative); Nitrite Urine Negative (Negative); Protein Urine 1+ (Negative); RBC Urine Automated 0-4 /hpf (0-4); Specific Gravity Urine 1.012 (1.000-1.030); Urobilinogen Urine Negative (Negative); WBC Urine Automated 0 /hpf (0-5)
[2020-04-21 19:59] LABS: Alanine Aminotransferase 27 U/L (12-78); Albumin Level 3.3 gm/dl (3.4-5.0); Aspartate Aminotransferase 23 U/L (15-37); BUN Creatinine Ratio 17.7 (10-20); Blood Urea Nitrogen 19 mg/dl (7-18); Calcium 8.7 mg/dl (8.5-10.1); Carbon Dioxide 38 mmol/L (21-32); Chloride 98 mmol/L (98-107); Creatinine Clr Calc Pharmacy 56.8 ml/min; Est GFR (African American) 56.9; Est GFR (Non-African American) 49.1; Glucose 159 mg/dl (70-99); Potassium 4.2 mmol/L (3.5-5.1); Sodium 140 mmol/L (136-145)
[2020-04-21 20:03] LABS: Albumin Globulin Ratio 0.8 (0.9-2); Alkaline Phosphatase 150 U/L (45-117); Bilirubin,Total 0.7 mg/dl (0.2-1); C Reactive Protein 0.45 mg/dl (0-0.29); Globulin 4.3 gm/dl (2.5-4.0); Total Protein 7.6 gm/dl (6.4-8.2); Troponin I < 0.015 ng/ml (0-0.045)
--- NOTE | 2020-04-21 20:25 | XRay Report ---
XR chest 1V portable CLINICAL HISTORY: illness dyspnea COMPARISON STUDY: 11/20/2019 FINDINGS: Moderate cardiomegaly. Prominent pulmonary vasculature. Small right pleural effusion. IMPRESSION: Congestive heart failure ACT 112: Negative or not required by law. The above report was generated using voice recognition software. It may contain grammatical, syntax or spelling errors. Electronically signed by: Richie Bowen M.D. 04/21/2020 8:23 PM
--- NOTE | 2020-04-21 20:27 | XRay Report ---
XR toe(s) RT min 2V CLINICAL HISTORY: third toe osteo? COMPARISON: None. DISCUSSION: Possible developing lucency of the distal aspects of the third fourth and fifth metatarsa ls. This may be projectional and/or artifactual. Osteomyelitis is not excluded. The phalanges appear intact. There is soft tissue edema over the third fourth and fifth toes. IMPRESSION: Developing subtle osteopenia of the distal aspects of the third fourth and fifth metatars als. Possible early osteomyelitis is considered. ACT 112: Negative or not required by law. The above report was generated using voice recognition software. It may contain grammatical, syntax or spelling errors. Electronically signed by: Richie Bowen M.D. 04/21/2020 8:25 PM
[2020-04-21] MEDS ORDERED: FUROSEMIDE 40 MG/4 ML VIAL IV STA (20:51)
[2020-04-21] MEDS ORDERED: VANCOMYCIN CONSULT ACTIVE PRN ×2 (21:02→22:11)
[2020-04-21] MEDS ORDERED: VANCOMYCIN HCL 2,500 MG in SODIUM CHLORIDE 0.9% 500 ML IV ONE (21:02)
[2020-04-21] MEDS ORDERED: CLINDAMYCIN 600 MG/54 ML BAG IV ONE (21:04)
[2020-04-21] MEDS ORDERED: VANCOMYCIN HCL 1,000 MG in SODIUM CHLORIDE 0.9% 250 ML IV SCH (22:15)
[2020-04-21] MEDS ORDERED: AZITHROMYCIN 500 MG in DEXTROSE 5% 250 ML IV STA (22:26)
--- NOTE | 2020-04-21 23:02 | History & Physical Report ---
Date of Service April 21, 2020 Assessment & Plan (1) Osteomyelitis of third toe of right foot: Diabetic foot ulcer/osteomyelitis- Place on vancomycin IV and aztreonam IV. Wound care consult Present on Admission?: Yes (2) CHF (congestive heart failure): CHF/atrial fibrillation/hypertension- Chest x-ray suggestive of CHF. Holding Bumex p.o. Given furosemide 60 mg IV in the ED. Will place on furosemide 40 mg IV twice daily Continue diltiazem extended release 240 mg every morning, mag oxide 800 mg p.o. daily, potassium chloride 40 mEq p.o. every morning. Continue metoprolol succinate extended release 150 mg every morning. Continue Xarelto 15 mg p.o. every morning Follow serial CBC with differential, BMP, magnesium and PT/INR Present on Admission?: Yes (3) Chronic venous insufficiency: Will improve with diuretics as noted for CHF above Present on Admission?: Yes (4) Venous stasis dermatitis of both lower extremities: See above Present on Admission?: Yes (5) Diabetic peripheral neuropathy associated with type 2 diabetes mellitus: Not on any direct treatment for peripheral neuropathy. Hold metformin. Hold insulin lispro. Continue Humulin 70/30 82 units subcu in the a.m. and 85 units subcu in the p.m. Place on Accu-Cheks before meals and at bedtime with Humalog coverage per scale Present on Admission?: Yes (6) PAD (peripheral artery disease): Continue Xarelto Present on Admission?: Yes (7) Hyperlipidemia: Continue atorvastatin 40 mg daily Present on Admission?: Yes (8) CKD (chronic kidney disease) stage 3, GFR 30-59 ml/min: Creatinine 1.13 upon admission, with range 1.04-1.52 GFR is 47.5 with range 33.2-52.5. Follow serially on laboratories Present on Admission?: Yes (9) COPD (chronic obstructive pulmonary disease): Duo nebs every 2 hours as needed Present on Admission?: Yes (10) Atrial fibrillation: Continue Xarelto 15 mg p.o. daily. See above Present on Admission?: Yes (11) Hypothyroidism: Continue levothyroxine 50 mcg daily Present on Admission?: Yes (12) Depression with anxiety: On no direct treatment at this time, however, resumption of some form of treatment may need to be considered Present on Admission?: Yes History of Present Illness Chief Complaint: The patient presents to the emergency department with complaints of generally feeling unwell, and noted blood coming from her right third toe while she was in the bathroom earlier in the day today. Primary Care Provider: Lee Bryant DO The patient is a 74-year-old female with a past medical history including chronic venous stasis dermatitis of bilateral lower extremities, CHF, obesity, diabetes, hypertension, endometrial cancer, history of diabetic foot ulcer, diabetic peripheral neuropathy, PAD, morbid obesity, depression with anxiety, hyperlipidemia, JACKIE, CKD stage III, COPD, atrial fibrillation and hypothyroidism. She has been following with the wound care clinic, and yesterday was released due to her lower extremity wounds healing. Today she reports she feels generally unwell, and is tearful and anxious in the exam room. She noted that while she was in the bathroom today blood was coming from her right third toe, and she is unaware of any injury to it. Allergies Allergy/AdvReac Type Severity Reaction Status Date / Time Penicillins Allergy Intermediate HIVES Verified 04/21/20 19:35 mineral oil Allergy Unknown Verified 04/21/20 19:35 metronidazole AdvReac Unknown NAUSEA Verified 04/21/20 19:35 ceresin [From Eucerin] AdvReac Redness of Verified 04/21/20 19:35 Skin emollient combination no.33 AdvReac Redness of Verified 04/21/20 19:35 [From Eucerin] Skin isopropyl myristate AdvReac Redness of Verified 04/21/20 19:35 [From Eucerin] Skin lanolin alcohols AdvReac Redness of Verified 04/21/20 19:35 [From Eucerin] Skin mineral oil [From Eucerin] AdvReac Redness of Verified 04/21/20 19:35 Skin soap [From Eucerin] AdvReac Redness of Verified 04/21/20 19:35 Skin water [From Eucerin] AdvReac Redness of Verified 04/21/20 19:35 Skin Home Medications Home Medications Medication Instructions Recorded Confirmed Type acetaminophen [Tylenol Extra 500 mg PO Q4H PRN 09/18/18 04/21/20 History Strength] cholecalciferol (vitamin D3) 2,000 units PO DAILY@1200 09/18/18 04/21/20 History [Vitamin D3] Oxygen Home #1 ea 04/03/19 03/22/20 History albuterol sulfate 2.5 mg INHALATION Q4 PRN ml 04/24/19 04/21/20 History albuterol sulfate 90 mcg/actuation 1 - 2 puff INHALATION Q4H PRN #18 09/01/19 04/21/20 Rx aerosol inhaler gm magnesium oxide 800 mg PO DAILY@1200 tab 10/27/19 04/21/20 History pen needle, diabetic 29 gauge x #200 ea 12/23/19 03/22/20 Rx 1/2" allopurinol 100 mg tablet 100 mg PO DAILY@1800 #90 tab 02/26/20 04/21/20 Rx atorvastatin 40 mg tablet 40 mg PO DAILY #90 tab 02/26/20 04/21/20 Rx bumetanide 1 mg tablet See Rx Instructions PO BID tab 02/26/20 04/21/20 History diltiazem HCl 240 mg 240 mg PO QAM #90 cap 02/26/20 04/21/20 Rx capsule,extended release 24 hr insulin lispro 100 unit/mL 10 units SUBCUT DAILY@1200 ml 02/26/20 04/21/20 History subcutaneous pen levothyroxine 50 mcg tablet 50 mcg PO QAM #90 tab 02/26/20 04/21/20 Rx metformin 500 mg tablet See Rx Instructions .ROUTE 02/26/20 04/21/20 Rx .COMPLEX #270 tablet metoprolol succinate 100 mg 150 mg PO QAM #90 tab 02/26/20 04/21/20 Rx tablet,extended release 24 hr potassium chloride 20 mEq 40 meq PO QAM #180 tab 02/26/20 04/21/20 Rx tablet,extended release(part/cryst) rivaroxaban 15 mg tablet 15 mg PO QPM #90 tab 02/26/20 04/21/20 Rx lidocaine 1 patch TOP DAILY PRN #15 ea 03/08/20 04/21/20 Rx blood sugar diagnostic See Rx Instructions .ROUTE 04/07/20 04/13/20 Rx .COMPLEX #100 strip insulin NPH-regular 70-30 U-100 82 unit SUBCUT QAM #160 ml 04/07/20 04/21/20 Rx insulin 100 unit/mL subcutaneous pen insulin NPH and regular human 85 unit SUBCUT QPM 04/21/20 04/21/20 History [Humulin 70/30 U-100 KwikPen] nystatin [Nystop] 1 applic TOPICAL TID 04/21/20 04/21/20 History Past Med/Surg History Medical History Acquired claw toe of left foot (Acute) Acquired claw toe of right foot (Acute) Atrial flutter (Inactive) Basal cell carcinoma, face (Resolved) Bilateral swelling of feet (Acute) Callus (Acute) DM (diabetes mellitus), type 2 Hypertension (Inactive) Hypertension (Inactive) Pleural effusion (Inactive) Sciatica (Inactive) Surgical History Hx of salpingo-oophorectomy, bilateral S/P hysterectomy (Chronic) S/P Mohs surgery for basal cell carcinoma (Acute) S/P thoracentesis (Inactive) Family History Father Coronary heart disease Myocardial infarction Mother Alzheimer disease Denies family history of Ovarian cancer Prostate cancer Breast cancer Colorectal cancer Social History Smoking Status: Never smoker Second Hand Exposure: No; Do You Dip or Chew Tobacco: No; Tobacco Cessation Education Requested by Patient: No Hx Alcohol Use: No Hx Substance Use: No Preferred Language: Finnish Communication Ability: Effective Visual Impairment: Limited Band Booker Required: No Beliefs That Will Affect Care: None marital status: Current Living Situation: Spouse current occupational status: retired How many Children do You have: 0 Other Information That Helps Us Care for You: No Feels Safe at Home: Yes Safety Concerns: Feels Safe At This Time Dental Care, Regularly: Yes Physical Activity Frequency: 1-2 Times per Week Sunscreen Use: No Review of Systems Review of Systems: The patient denies chest pain, palpitations, shortness of breath, dyspnea on exertion, cough, sore throat, fevers, chills, sweats, nausea, vomiting, diarrhea , constipation, abdominal pain, pelvic pain, blood in urine or stool, dysuria, urinary frequency or urgency, lightheadedness, dizziness, headache, memory loss, loss of consciousness, imbalance, focal or generalized weakness, numbness or tingling in arms, generalized arthralgias or myalgias, back or neck pain, or night sweats. The review of systems is otherwise negative other than for that already noted above, and at least 10 systems have been reviewed. Physical Exam Physical Exam: The patient is awake, alert and oriented 3, well developed and well nourished, normocephalic and atraumatic, lying in bed and in no acute distress. HEENT--PERRL, EOMI, mucous membranes and oropharynx normal. Neck--supple. No JVD. No bruits. Thyroid normal, trachea midline, no adenopathy. Heart--normal S1 and S2. No murmurs, rubs or gallops. Lungs--clear bilaterally, no respiratory distress, no accessory muscle use. Abdomen--normal bowel sounds and soft. Nontender. Nondistended. Morbidly obese Extremities--no cyanosis or clubbing. 3+ bilateral pretibial pitting edema. Right third toe with blister/ulcer and dried blood. Onychomycosis bilaterally Dermatologic--see above Neurologic--cranial nerves II through XII grossly intact. Rheumatologic--normal range of motion. Psychiatric-occasionally tearful Results & Data Results & Data ([facility]) Vital Signs (Past 12 Hours) Vital Signs Temp Pulse Pulse Resp BP BP Pulse Ox 04/21/20 22:33 98.2 F 04/21/20 22:31 75 18 96 04/21/20 22:30 72 15 152/71 H 96 04/21/20 22:01 73 17 100 04/21/20 22:00 73 23 149/70 H 100 04/21/20 21:31 100 04/21/20 21:30 156/84 H 99 04/21/20 21:01 75 19 100 04/21/20 21:00 75 26 H 150/77 H 99 04/21/20 20:31 75 22 100 04/21/20 20:30 75 26 H 172/89 H 100 04/21/20 20:04 75 16 159/88 H 100 04/21/20 20:00 75 22 100 04/21/20 19:59 75 18 159/88 H 99 04/21/20 19:31 75 21 100 04/21/20 19:30 75 28 H 167/79 H 100 04/21/20 19:01 100 04/21/20 19:00 136/64 100 04/21/20 18:31 85 14 100 04/21/20 18:30 90 21 187/91 H 100 04/21/20 18:24 91 H 13 100 04/21/20 18:22 90 16 171/133 H 100 04/21/20 18:15 98.1 F 94 H 12 171/133 H 98 Laboratory Results Laboratory Results WBC 8.47 K/uL (4.8-10.8) 04/22/20 01:37 RBC 4.20 M/uL (4.2-5.4) 04/22/20 01:37 Hgb 12.2 g/dL (12.0-16.0) 04/22/20 01:37 Hct 38.8 % (37-47) 04/22/20 01:37 MCV 92.4 fL (80-100) 04/22/20 01:37 MCH 29.0 pg (25-34) 04/22/20 01:37 MCHC 31.4 g/dL (32-36) L 04/22/20 01:37 RDW Std Deviation 56.1 fL (36.4-46.3) H 04/22/20 01:37 RDW Coeff of Davina 16.5 % (11.5-14.5) H 04/22/20 01:37 Plt Count 174 K/uL (130-400) 04/22/20 01:37 MPV 9.5 fL (7.4-10.4) 04/22/20 01:37 Immature Gran % (Auto) 0.2 % 04/22/20 01:37 Neut % (Auto) 75.9 % 04/22/20 01:37 Lymph % (Auto) 15.6 % 04/22/20 01:37 [place] % (Auto) 6.4 % 04/22/20 01:37 Eos % (Auto) 1.5 % 04/22/20 01:37 Baso % (Auto) 0.4 % 04/22/20 01:37 Neut # (Auto) 6.43 K/uL (1.4-6.5) 04/22/20 01:37 Lymph # (Auto) 1.32 K/uL (1.2-3.4) 04/22/20 01:37 [place] # (Auto) 0.54 K/uL (0.11-0.59) 04/22/20 01:37 Eos # (Auto) 0.13 K/uL (0-0.5) 04/22/20 01:37 Baso # (Auto) 0.03 K/uL (0-0.2) 04/22/20 01:37 Immature Gran # (Auto) 0.02 K/uL (0.00-0.02) 04/22/20 01:37 ESR 43 mm/hr (0-21) H 04/21/20 19:31 PT 12.4 Seconds (9.0-12.0) H 04/22/20 01:37 INR 1.2 (0.9-1.1) H 04/22/20 01:37 APTT 30.9 Seconds (21.0-31.0) 04/22/20 01:37 PTT Ratio 1.1 04/22/20 01:37 Sodium 139 mmol/L (136-145) 04/22/20 01:37 Potassium 4.0 mmol/L (3.5-5.1) 04/22/20 01:37 Chloride 98 mmol/L (98-107) 04/22/20 01:37 Carbon Dioxide 36 mmol/L (21-32) H 04/22/20 01:37 Anion Gap 5.0 (3-11) 04/22/20 01:37 BUN 20 mg/dl (7-18) H 04/22/20 01:37 Creatinine 1.13 mg/dl (0.6-1.2) 04/22/20 01:37 Est Cr Clr Drug Dosing 59.4 ml/min 04/22/20 01:37 Est GFR ( Amer) 55.1 04/22/20 01:37 Est GFR (Non-Af Amer) 47.5 04/22/20 01:37 BUN/Creatinine Ratio 17.5 (10-20) 04/22/20 01:37 Glucose 218 mg/dl (70-99) H 04/22/20 01:37 POC Glucose 230 mg/dl (70-99) H 04/22/20 01:24 Lactate 1.6 mmol/L (0.4-2.0) 04/21/20 19:31 Calcium 8.4 mg/dl (8.5-10.1) L 04/22/20 01:37 Magnesium 1.8 mg/dl (1.8-2.4) 04/22/20 01:37 Total Bilirubin 0.8 mg/dl (0.2-1) 04/22/20 01:37 AST 19 U/L (15-37) 04/22/20 01:37 ALT 25 U/L (12-78) 04/22/20 01:37 Alkaline Phosphatase 144 U/L (45-117) H 04/22/20 01:37 Troponin I < 0.015 ng/ml (0-0.045) 04/22/20 01:37 C-Reactive Protein 0.45 mg/dl (0-0.29) H 04/21/20 19:31 Total Protein 7.6 gm/dl (6.4-8.2) 04/22/20 01:37 Albumin 3.3 gm/dl (3.4-5.0) L 04/22/20 01:37 Globulin 4.3 gm/dl (2.5-4.0) H 04/22/20 01:37 Albumin/Globulin Ratio 0.8 (0.9-2) L 04/22/20 01:37 Urine Color Yellow 04/21/20 19:25 Urine Appearance Clear (Clear) 04/21/20 19:25 Urine pH 7.0 (4.5-7.5) 04/21/20 19:25 Ur Specific [place] 1.012 (1.000-1.030) 04/21/20 19:25 Urine Protein 1+ (Negative) H 04/21/20 19:25 Urine Glucose (UA) Negative (Negative) 04/21/20 19:25 Urine Ketones Negative (Negative) 04/21/20 19:25 Urine Blood Negative (Negative) 04/21/20 19:25 Urine Nitrite Negative (Negative) 04/21/20 19:25 Urine Bilirubin Negative (Negative) 04/21/20 19:25 Urine Urobilinogen Negative (Negative) 04/21/20 19:25 Ur Leukocyte Esterase Negative (Negative) 04/21/20 19:25 Urine WBC (Auto) 0 /hpf (0-5) 04/21/20 19:25 Urine RBC (Auto) 0-4 /hpf (0-4) 04/21/20 19:25 U Hyaline Cast (Auto) 1-5 /lpf (0-5) 04/21/20 19:25 U Epithel Cells (Auto) 5-10 /lpf (0-5) H 04/21/20 19:25 Urine Bacteria (Auto) Negative (Negative) 04/21/20 19:25 COVID-19 PCR NEGATIVE (Negative) 04/21/20 21:45 Influenza Type A (PCR) Neg for Influ A (Neg) 04/21/20 21:45 Influenza Type B (PCR) Neg for Influ B (Neg) 04/21/20 21:45 Diagnostic Findings [facility], [place] [phone] XRay Report Patient: MIKEL PIMENTEL EAdmit Date: 04/21/20 MR#: [id number]: [id number] Acct ID:[id number]: Date: [address] [place] [address] Zip: [place] [address] Age: 74Location: ED Sex: F Room/Bed: Att Phy:Diagnosis: ILLNESS, Tiny Phy: Lee Bryant, DOService Date: 04/21/20 Fam Phy:Interpreting Phy: Richie Bowen MD Admit Phy: Ordering Phy: Lina Alexander M.D. cc: ~ XR chest 1V portable CLINICAL HISTORY: illness dyspnea COMPARISON STUDY: 11/20/2019 FINDINGS: Moderate cardiomegaly. Prominent pulmonary vasculature. Small right pleural effusion. IMPRESSION: Congestive heart failure ACT 112: Negative or not required by law. The above report was generated using voice recognition software. It may contain grammatical, syntax or spelling errors. Electronically signed by: Richie Bowen M.D. 04/21/2020 8:23 PM Dictated: 04/21/202022 Transcribed: 04/21/202022 [facility], [place] [phone] XRay Report Patient: MIKEL PIMENTEL EAdmit Date: 04/21/20 MR#: [id number]: [id number] Acct ID:[id number]: Date: [address] [place] [address] Zip: [place] [address] Age: 74Location: ED Sex: F Room/Bed: Att Phy:Diagnosis: ILLNESS, Tiny Phy: Lee Bryant, DOService Date: 04/21/20 Fam Phy:Interpreting Phy: Richie Bowen MD Admit Phy: Ordering Phy: Lina Alexander M.D. cc: ~ XR toe(s) RT min 2V CLINICAL HISTORY: third toe osteo? COMPARISON: None. DISCUSSION: Possible developing lucency of the distal aspects of the third fourth and fifth metatarsals. This may be projectional and/or artifactual. Osteomyelitis is not excluded. The phalanges appear intact. There is soft tissue edema over the third fourth and fifth toes. IMPRESSION: Developing subtle osteopenia of the distal aspects of the third fourth and fifth metatarsals. Possible early osteomyelitis is considered. ACT 112: Negative or not required by law. The above report was generated using voice recognition software. It may contain grammatical, syntax or spelling errors. Electronically signed by: Richie Bowen M.D. 04/21/2020 8:25 PM Dictated: 04/21/202023 Transcribed: 04/21/202023 Code Status & VTE Plan Code Status Full code VTE Prophylaxis Plan VTE Prophylaxis will be ordered: Yes PG Care Time/CCT Total # of Minutes Spent Total Time Spent with Patient: Total time spent is greater than 50% in coordination of care (as documented) at patient's floor/unit and/or counseling patient: Coding Level of Care Code 14057 Initial Inpt Care Lvl 3 Diagnoses Osteomyelitis of third toe of right foot M86.9 CHF (congestive heart failure) I50.9 Heart failure chronicity: chronic Heart failure type: unspecified Chronic venous insufficiency I87.2 Venous stasis dermatitis of both lower extremities I87.2 Diabetic peripheral neuropathy associated with type 2 diabetes mellitus E11.42 PAD (peripheral artery disease) I73.9 Hyperlipidemia E78.5 CKD (chronic kidney disease) stage 3, GFR 30-59 ml/min N18.3 COPD (chronic obstructive pulmonary disease) J44.9 Atrial fibrillation I48.91 Hypothyroidism E03.9 Depression with anxiety F41.8 (1) CHF (congestive heart failure) Heart failure chronicity: chronic Heart failure type: unspecified Qualified Code(s): I50.9 - Heart failure, unspecified
[2020-04-21] MEDS: AZTREONAM 2,000 MG in DEXTROSE 5% 100 ML IV SCH (23:26)
[2020-04-21 23:58] LABS: Influenza A virus by PCR Neg for Influ A (Neg); Influenza B virus by PCR Neg for Influ B (Neg)
[2020-04-22] MEDS ORDERED: CARBOHYDRATES FOR HYPOGLYCEMIA PO PRN (01:25)
[2020-04-22] MEDS ORDERED: GLUCOSE 10 TABS/TUBE PO PRN (01:25)
[2020-04-22] MEDS ORDERED: GLUCOSE 40% GEL 15 GM TUBE PO PRN (01:25)
[2020-04-22] MEDS ORDERED: ALUMINUM/MAGNESIUM SUSP 30 ML UDC PO PRN (01:25)
[2020-04-22] MEDS ORDERED: MAGNESIUM HYDROXIDE SUSP 30 ML UDC PO PRN (01:25)
[2020-04-22] MEDS ORDERED: POLYETHYLENE (MIRALAX) 17 GM PACK PO PRN (01:25)
[2020-04-22] MEDS ORDERED: GLUCAGON FOR INJ 1 MG VIAL SQ PRN (01:25)
[2020-04-22] MEDS ORDERED: ACETAMINOPHEN 325 MG TAB PO PRN (01:25)
[2020-04-22 01:57] LABS: Basophils # (auto) 0.03 K/uL (0-0.2); Basophils % (auto) 0.4 %; Eosinophils # (auto) 0.13 K/uL (0-0.5); Eosinophils % (auto) 1.5 %; Hematocrit (blood only) 38.8 % (37-47); Hemoglobin 12.2 g/dL (12.0-16.0); Immature Granulocytes # (auto) 0.02 K/uL (0.00-0.02); Immature Granulocytes % (auto) 0.2 %; Lymphocytes # (auto) 1.32 K/uL (1.2-3.4); Lymphocytes % (auto) 15.6 %; Mean Corpuscular Hgb Conc 31.4 g/dL (32-36); Mean Corpuscular Volume 92.4 fL (80-100); Mean Platelet Volume 9.5 fL (7.4-10.4); Monocytes # (auto) 0.54 K/uL (0.11-0.59); Monocytes % (auto) 6.4 %; Neutrophils # (auto) 6.43 K/uL (1.4-6.5); Neutrophils % (auto) 75.9 %; Platelet Count 174 K/uL (130-400); RDW Coefficient of Variation 16.5 % (11.5-14.5); RDW Standard Deviation 56.1 fL (36.4-46.3); White Blood Count 8.47 K/uL (4.8-10.8)
[2020-04-22 02:10] LABS: INR 1.2 (0.9-1.1); Partial Thromboplastin Ratio 1.1; Partial Thromboplastin Time 30.9 Seconds (21.0-31.0); Prothrombin Time 12.4 Seconds (9.0-12.0)
[2020-04-22 02:14] LABS: Albumin Level 3.3 gm/dl (3.4-5.0); BUN Creatinine Ratio 17.5 (10-20); Calcium 8.4 mg/dl (8.5-10.1); Creatinine Clr Calc Pharmacy 59.4 ml/min; Est GFR (African American) 55.1; Est GFR (Non-African American) 47.5; Magnesium 1.8 mg/dl (1.8-2.4)
[2020-04-22 02:16] LABS: Albumin Globulin Ratio 0.8 (0.9-2); Bilirubin,Total 0.8 mg/dl (0.2-1); Globulin 4.3 gm/dl (2.5-4.0); Total Protein 7.6 gm/dl (6.4-8.2)
[2020-04-22] MEDS: INSULIN ASPART 100 UNITS/ML 3 ML PEN SC SCH ×5 (02:52→21:58)
[2020-04-22] MEDS: RIVAROXABAN 15 MG TAB PO SCH ×2 (02:52→21:10)
[2020-04-22] MEDS: ALBUT/IPRATROP 3MG/0.5MG NEB 3 ML VIAL NEB PRN ×3 (03:02→19:25)
[2020-04-22 06:20] LABS: Estimated Average Glucose 160 mg/dl; Hemoglobin A1C 7.2 % (4.5-5.6)
[2020-04-22] MEDS: LEVOTHYROXINE SODIUM 50 MCG TABLET PO SCH (06:34)
[2020-04-22] MEDS: AZTREONAM 2,000 MG in DEXTROSE 5% 100 ML IV SCH ×3 (07:30→23:28)
[2020-04-22] MEDS: INSULIN HUMAN 70% NPH/30% REGULAR SC SCH ×2 (08:23→17:24)
[2020-04-22] MEDS: NYSTATIN POWDER 15GM BTL EXT SCH ×3 (08:24→21:10)
[2020-04-22] MEDS: dilTIAZem HCL 240 MG CAPCR PO SCH (08:24)
[2020-04-22] MEDS: POTASSIUM CHLORIDE 20 MEQ TABCR PO SCH (08:24)
[2020-04-22] MEDS: METOPROLOL SUCC 50MG EXT REL TAB PO SCH (08:25)
[2020-04-22] MEDS: FUROSEMIDE 40 MG in SYRINGE 0 ML IV SCH ×2 (08:36→21:09)
[2020-04-22] MEDS ORDERED: ATORVASTATIN 40 MG TAB PO SCH ×2 (09:00→21:00)
--- NOTE | 2020-04-22 10:37 | XCELERA ---
[id number]
[2020-04-22] MEDS: DAPTOmycin 500 MG in SYRINGE 0 ML IV SCH (11:11)
[2020-04-22] MEDS: CHOLECALCIFEROL 1,000 UNITS 25 MCG TAB PO SCH (11:13)
[2020-04-22] MEDS: MAGNESIUM OXIDE 400 MG TAB PO SCH (11:13)
--- NOTE | 2020-04-22 13:27 | Electrocardiogram Report ---
Test Reason : Blood Pressure : / mmHG Vent. Rate : 072 BPM Atrial Rate : 072 BPM P-R Int : 102 ms QRS Dur : 088 ms QT Int : 420 ms P-R-T Axes : 010 -28 031 degrees QTc Int : 459 ms Poor data quality, interpretation may be adversely affected possibly sinus rhythm vs atrial flutter Low voltage QRS Nonspecific ST abnormality Abnormal ECG Confirmed by Mina Alcantara ([id number]) on 04/22/2020 1:26:50 PM Referred By: REFERRED SELF Confirmed By:Leo Alcantara
--- NOTE | 2020-04-22 13:28 | Electrocardiogram Report ---
Test Reason : Blood Pressure : / mmHG Vent. Rate : 090 BPM Atrial Rate : 227 BPM P-R Int : 000 ms QRS Dur : 096 ms QT Int : 386 ms P-R-T Axes : 000 -33 063 degrees QTc Int : 472 ms Poor data quality, interpretation may be adversely affected probably Atrial flutter with variable A-V block Left axis deviation Nonspecific ST abnormality Abnormal ECG When compared with ECG of 20-NOV-2019 14:38, Vent. rate has increased BY 37 BPM Nonspecific T wave abnormality no longer evident in Anterior leads Confirmed by Mina Alcantara ([id number]) on 04/22/2020 1:27:56 PM Referred By: REFERRED SELF Confirmed By:Leo Alcantara
[2020-04-22] MEDS ORDERED: COUGH DROP (SUGAR FREE) LOZ 24 LOZ/1 BOX BUCCAL ONE (14:45)
--- NOTE | 2020-04-22 17:14 | Hospitalist Progress Note ---
Date of Service April 22, 2020 Assessment & Plan (1) Osteomyelitis of third toe of right foot: Diabetic foot ulcer/osteomyelitis- Place on vancomycin IV and aztreonam IV. Wound care consult May need ortho c/s pending wound care assessment (2) CHF (congestive heart failure): Acute on chronic dCHF on admission CHF/atrial fibrillation/hypertension- Chest x-ray suggestive of acute CHF. Holding Bumex p.o. Given furosemide 60 mg IV in the ED. Started on furosemide 40 mg IV twice daily on admission, will continue Continue diltiazem extended release 240 mg every morning, mag oxide 800 mg p.o. daily, potassium chloride 40 mEq p.o. every morning. Continue metoprolol succinate extended release 150 mg every morning. Continue Xarelto 15 mg p.o. every morning COVID neg on admission ECHO with EF 50-55% and no changes noted from last ECHO on 11/10/19 (3) Chronic venous insufficiency: Will improve with diuretics as noted for CHF above (4) Venous stasis dermatitis of both lower extremities: See above (5) Diabetic peripheral neuropathy associated with type 2 diabetes mellitus: Not on any direct treatment for peripheral neuropathy. Hold metformin. Hold insulin lispro. Continue Humulin 70/30 82 units subcu in the a.m. and 85 units subcu in the p.m. Place on Accu-Cheks before meals and at bedtime with Humalog coverage per scale (6) PAD (peripheral artery disease): Continue Xarelto (7) Hyperlipidemia: Continue atorvastatin 40 mg daily (8) CKD (chronic kidney disease) stage 3, GFR 30-59 ml/min: Creatinine 1.13 upon admission, with range 1.04-1.52 GFR is 47.5 with range 33.2-52.5. Follow serially on laboratories (9) COPD (chronic obstructive pulmonary disease): Duo nebs every 2 hours as needed (10) Atrial fibrillation: Continue Xarelto 15 mg p.o. daily. See above (11) Hypothyroidism: Continue levothyroxine 50 mcg daily (12) Depression with anxiety: On no direct treatment at this time, however, resumption of some form of treatment may need to be considered (13) Ear pain, right: debrox trial Admission and Anticipated Discharge Date Admission Date: April 21, 2020 Subjective Pt states her R foot pain is about the same as it was on admission. She notes that she has R ear pain that is new the last few days. She has a cough. Pt denies fever, SOB, chest pain, abd pain, n/v/c/d, LE swelling. She has been eating without issue. Review of Systems Review of Systems: Pertinent positives and negatives reviewed in HPI--all others negative Physical Exam Constitutional: WD/WN, vitals as above Eyes: normal visual figueroa by confrontation and + anicteric sclerae ENMT: R ear canal obstructed by wax that also appears stuck to hair in ear Neck: normal visual inspection and trachea midline Respiratory: normal respiratory effort; no respiratory distress Auscultation: + crackles (bases); no wheezes Cardiovascular: Rate/Rhythm: regular rate and regular rhythm Gastrointestinal (Abdomen): Inspection/Auscultation: abdomen not distended Percussion/Palpation: abdomen soft; abdomen nontender Musculoskeletal: Head/Neck/Chest: normocephalic and head atraumatic negative for edema, peripheral pulses intact Skin: Bandaging on R LE is clean and dry Neurologic: awake; not confused Speech / Cognition: normal speech Psychiatric: A+Ox3, euthymic affect Results & Data Results & Data ([facility]) Vital Signs (Past 12 Hours) Vital Signs Temp Pulse Pulse Resp BP Pulse Ox 04/22/20 15:46 36.4 C L 66 18 136/56 L 93 04/22/20 15:00 55 L 04/22/20 11:12 36.7 C 70 22 149/66 H 95 04/22/20 10:07 79 20 95 04/22/20 08:00 72 04/22/20 07:41 36.8 C 72 20 148/71 H 96 PG Care Time/CCT Total # of Minutes Spent Total Time Spent with Patient: Total time spent is greater than 50% in coordination of care (as documented) at patient's floor/unit and/or counseling patient: Coding Level of Care Code 77684 Subseq Hosp Care Lvl 3 Diagnoses Osteomyelitis of third toe of right foot M86.9 CHF (congestive heart failure) I50.9 Heart failure chronicity: chronic Heart failure type: unspecified Chronic venous insufficiency I87.2 Venous stasis dermatitis of both lower extremities I87.2 Diabetic peripheral neuropathy associated with type 2 diabetes mellitus E11.42 PAD (peripheral artery disease) I73.9 Hyperlipidemia E78.5 CKD (chronic kidney disease) stage 3, GFR 30-59 ml/min N18.3 COPD (chronic obstructive pulmonary disease) J44.9 Atrial fibrillation I48.91 Hypothyroidism E03.9 Depression with anxiety F41.8 Ear pain, right H92.01 (1) CHF (congestive heart failure) Heart failure chronicity: chronic Heart failure type: unspecified Qualified Code(s): I50.9 - Heart failure, unspecified
[2020-04-22] MEDS: allopurinoL 100 MG TAB PO SCH (17:34)
[2020-04-22] MEDS: CARBAMIDE PEROXIDE 6.5% 15 ML BTL OTR SCH (21:09)
[2020-04-22] MEDS ORDERED: AZITHROMYCIN 500 MG in DEXTROSE 5% 250 ML IV SCH (22:00)
[2020-04-23] MEDS: AZTREONAM 2,000 MG in DEXTROSE 5% 100 ML IV SCH ×3 (06:36→21:40)
[2020-04-23] MEDS: LEVOTHYROXINE SODIUM 50 MCG TABLET PO SCH (06:36)
[2020-04-23 07:13] LABS: Basophils # (auto) 0.03 K/uL (0-0.2); Basophils % (auto) 0.4 %; Eosinophils # (auto) 0.19 K/uL (0-0.5); Eosinophils % (auto) 2.6 %; Hematocrit (blood only) 38.4 % (37-47); Hemoglobin 12.2 g/dL (12.0-16.0); Immature Granulocytes # (auto) 0.02 K/uL (0.00-0.02); Immature Granulocytes % (auto) 0.3 %; Lymphocytes # (auto) 0.91 K/uL (1.2-3.4); Lymphocytes % (auto) 12.6 %; Mean Corpuscular Hemoglobin 29.3 pg (25-34); Mean Corpuscular Hgb Conc 31.8 g/dL (32-36); Mean Corpuscular Volume 92.3 fL (80-100); Mean Platelet Volume 9.7 fL (7.4-10.4); Monocytes # (auto) 0.57 K/uL (0.11-0.59); Monocytes % (auto) 7.9 %; Neutrophils % (auto) 76.2 %; Platelet Count 161 K/uL (130-400); RDW Coefficient of Variation 16.7 % (11.5-14.5); RDW Standard Deviation 56.4 fL (36.4-46.3); Red Blood Count 4.16 M/uL (4.2-5.4); White Blood Count 7.22 K/uL (4.8-10.8)
[2020-04-23] MEDS: ALBUT/IPRATROP 3MG/0.5MG NEB 3 ML VIAL NEB PRN ×3 (07:20→23:37)
[2020-04-23 07:30] LABS: INR 1.4 (0.9-1.1); Partial Thromboplastin Ratio 1.3; Prothrombin Time 14.8 Seconds (9.0-12.0)
[2020-04-23 07:59] LABS: Albumin Globulin Ratio 0.8 (0.9-2); Albumin Level 3.2 gm/dl (3.4-5.0); BUN Creatinine Ratio 20.8 (10-20); Bilirubin,Total 0.8 mg/dl (0.2-1); Creatinine Clr Calc Pharmacy 56.8 ml/min; Est GFR (African American) 52.2; Est GFR (Non-African American) 45.1; Globulin 3.9 gm/dl (2.5-4.0); Magnesium 2.1 mg/dl (1.8-2.4); Potassium 4.1 mmol/L (3.5-5.1); Total Protein 7.1 gm/dl (6.4-8.2)
[2020-04-23] MEDS: dilTIAZem HCL 240 MG CAPCR PO SCH (09:00)
[2020-04-23] MEDS: POTASSIUM CHLORIDE 20 MEQ TABCR PO SCH (09:00)
[2020-04-23] MEDS: METOPROLOL SUCC 50MG EXT REL TAB PO SCH (09:00)
[2020-04-23] MEDS: NYSTATIN POWDER 15GM BTL EXT SCH ×3 (09:01→21:39)
[2020-04-23] MEDS: CARBAMIDE PEROXIDE 6.5% 15 ML BTL OTR SCH ×2 (09:01→21:39)
[2020-04-23] MEDS: FUROSEMIDE 40 MG in SYRINGE 0 ML IV SCH (09:04)
[2020-04-23] MEDS: INSULIN ASPART 100 UNITS/ML 3 ML PEN SC SCH ×4 (09:07→21:39)
[2020-04-23] MEDS: INSULIN HUMAN 70% NPH/30% REGULAR SC SCH ×2 (09:07→17:05)
--- NOTE | 2020-04-23 10:21 | Electrocardiogram Report ---
Test Reason : Blood Pressure : / mmHG Vent. Rate : 073 BPM Atrial Rate : 073 BPM P-R Int : 258 ms QRS Dur : 100 ms QT Int : 418 ms P-R-T Axes : 054 -26 087 degrees QTc Int : 460 ms Atrial flutter Low voltage QRS Nonspecific ST abnormality Abnormal ECG When compared with ECG of 22-APR-2020 06:30, ST no longer depressed in Anterior leads ST now depressed in Lateral leads Confirmed by Mina Alcantara ([id number]) on 04/23/2020 10:21:42 AM Referred By: REFERRED SELF Confirmed By:Leo Alcantara
[2020-04-23] MEDS: DAPTOmycin 500 MG in SYRINGE 0 ML IV SCH (12:00)
[2020-04-23] MEDS: CHOLECALCIFEROL 1,000 UNITS 25 MCG TAB PO SCH (12:00)
[2020-04-23] MEDS: MAGNESIUM OXIDE 400 MG TAB PO SCH (12:00)
--- NOTE | 2020-04-23 15:25 | XRay Report ---
XR chest 1V portable CLINICAL HISTORY: shortness of breath dyspnea COMPARISON STUDY: 04/21/2020 FINDINGS: Moderate stable cardiomegaly. Increased pulmonary vasculature in terms of prominence. Sligh tly progressive right and to a lesser extent left pleural effusion. IMPRESSION: Mildly progressive congestive heart failure ACT 112: Negative or not required by law. The above report was generated using voice recognition software. It may contain grammatical, syntax or spelling errors. Electronically signed by: Richie Bowen M.D. 04/23/2020 3:24 PM
[2020-04-23] MEDS ORDERED: Nursing to Pharmacy Communication SCH (15:45)
[2020-04-23] MEDS ORDERED: FUROSEMIDE 40 MG in SYRINGE 0 ML IV SCH (16:00)
--- NOTE | 2020-04-23 16:09 | Hospitalist Progress Note ---
Date of Service April 23, 2020 Assessment & Plan (1) Osteomyelitis of third toe of right foot: Diabetic foot ulcer/osteomyelitis- Place on vancomycin IV and aztreonam IV. Wound care consult May need ortho c/s pending wound care assessment (2) CHF (congestive heart failure): Acute on chronic dCHF on admission CHF/atrial fibrillation/hypertension- Chest x-ray suggestive of acute CHF. Holding Bumex p.o. Given furosemide 60 mg IV in the ED. Started on furosemide 40 mg IV twice daily on admission Continue diltiazem extended release 240 mg every morning, mag oxide 800 mg p.o. daily, potassium chloride 40 mEq p.o. every morning. Continue metoprolol succinate extended release 150 mg every morning. Continue Xarelto 15 mg p.o. every morning COVID neg on admission ECHO with EF 50-55% and no changes noted from last ECHO on 11/10/19 Called by nursing this afternoon for pt with SOB and feeling shaky. BS 260s. BP initially 88/54 with HR in the 70s. Repeat 119/63. Pt not on IVF. She is getting her xarelto as at home. Pt fell asleep and had to be woken up for CXR. Again feels SOB once woken up. CXR notes worsening CHF HS lasix dosing moved to 1600 Additional 20mg lasix IV now + AM Pt is on xarelto making PE unlikely (3) Chronic venous insufficiency: Will improve with diuretics as noted for CHF above (4) Venous stasis dermatitis of both lower extremities: See above (5) Diabetic peripheral neuropathy associated with type 2 diabetes mellitus: Not on any direct treatment for peripheral neuropathy. Hold metformin. Hold insulin lispro. Continue Humulin 70/30 82 units subcu in the a.m. and 85 units subcu in the p.m. SSI A1c 7.2 (6) PAD (peripheral artery disease): Continue Xarelto (7) Hyperlipidemia: Continue atorvastatin 40 mg daily (8) CKD (chronic kidney disease) stage 3, GFR 30-59 ml/min: Creatinine 1.13 upon admission, with range 1.04-1.52 GFR is 47.5 with range 33.2-52.5. Follow serially on laboratories (9) COPD (chronic obstructive pulmonary disease): Duo nebs every 2 hours as needed (10) Atrial fibrillation: Continue Xarelto 15 mg p.o. daily. See above (11) Hypothyroidism: Continue levothyroxine 50 mcg daily (12) Depression with anxiety: On no direct treatment at this time, however, resumption of some form of treatment may need to be considered (13) Ear pain, right: Improving s/p debrox trial Admission and Anticipated Discharge Date Admission Date: April 21, 2020 Subjective Pt states her R foot pain is about the same as it was on admission, maybe a bit better. R ear pain is "basically gone". Pt denies fever, SOB, chest pain, abd pain, n/v/c/d, LE swelling. She has been eating without issue. Nursing states that pt's BS this AM was in the 50s. Increased to 70s s/p juice. Pt was asx with this. Pt states she checks her BS 3x/day generally and she does occasionally get low BS. Maybe once a month and it occurs if she doesn't eat enough, particularly after lunch. She also has spells where she gets "really shaky" and feels generally unwell. Called by nursing this afternoon for pt with SOB and feeling shaky. BS 260s. BP initially 88/54. Repeat 119/63. Pt not on IVF. She is getting her xarelto as at home. Pt fell asleep and had to be woken up for CXR. Again feels SOB once woken up. Review of Systems Review of Systems: Pertinent positives and negatives reviewed in HPI--all others negative Physical Exam Constitutional: WD/WN, vitals as above Eyes: normal visual figueroa by confrontation and + anicteric sclerae Neck: normal visual inspection and trachea midline Respiratory: normal respiratory effort, lungs clear to auscultation normal respiratory effort; no respiratory distress Auscultation: + crackles (bases) and + wheezes Cardiovascular: Rate/Rhythm: regular rate and regular rhythm Extremities: + edema (improved) Gastrointestinal (Abdomen): Inspection/Auscultation: abdomen not distended Percussion/Palpation: abdomen soft; abdomen nontender Musculoskeletal: Head/Neck/Chest: normocephalic and head atraumatic Skin: + erythema (improved) Neurologic: awake; not confused Speech / Cognition: normal speech Psychiatric: A+Ox3, euthymic affect Results & Data Results & Data ([facility]) Vital Signs (Past 12 Hours) Vital Signs Temp Pulse Resp BP Pulse Ox 04/23/20 15:26 36.6 C 82 19 163/81 H 93 04/23/20 14:12 36.8 C 76 22 143/71 H 92 04/23/20 14:02 88/54 L 96 04/23/20 13:48 79 26 H 119/65 92 04/23/20 12:19 77 20 97 04/23/20 11:32 36.6 C 76 20 120/65 96 04/23/20 07:22 73 16 97 04/23/20 06:55 36.4 C L 73 20 146/72 H 97 04/23/20 05:03 36.4 C L 72 22 159/73 H 98 PG Care Time/CCT Total # of Minutes Spent Total Time Spent with Patient: Total time spent is greater than 50% in coordination of care (as documented) at patient's floor/unit and/or counseling patient: Coding Level of Care Code 75035 Subseq Hosp Care Lvl 3 Diagnoses Osteomyelitis of third toe of right foot M86.9 CHF (congestive heart failure) I50.9 Heart failure chronicity: chronic Heart failure type: unspecified Chronic venous insufficiency I87.2 Venous stasis dermatitis of both lower extremities I87.2 Diabetic peripheral neuropathy associated with type 2 diabetes mellitus E11.42 PAD (peripheral artery disease) I73.9 Hyperlipidemia E78.5 CKD (chronic kidney disease) stage 3, GFR 30-59 ml/min N18.3 COPD (chronic obstructive pulmonary disease) J44.9 Atrial fibrillation I48.91 Hypothyroidism E03.9 Depression with anxiety F41.8 Ear pain, right H92.01 (1) CHF (congestive heart failure) Heart failure chronicity: chronic Heart failure type: unspecified Qualified Code(s): I50.9 - Heart failure, unspecified
[2020-04-23] MEDS ORDERED: FUROSEMIDE 20 MG in SYRINGE 0 ML IV ONE (17:00)
[2020-04-23] MEDS: allopurinoL 100 MG TAB PO SCH (17:01)
--- NOTE | 2020-04-23 18:49 | Electrocardiogram Report ---
Test Reason : Blood Pressure : / mmHG Vent. Rate : 075 BPM Atrial Rate : 089 BPM P-R Int : 000 ms QRS Dur : 094 ms QT Int : 474 ms P-R-T Axes : 000 -36 153 degrees QTc Int : 529 ms Probably atrial flutter Left axis deviation Low voltage QRS Nonspecific ST and T wave abnormality Abnormal ECG When compared with ECG of 23-APR-2020 06:48, Nonspecific T wave abnormality now evident in Inferior leads Nonspecific T wave abnormality now evident in Lateral leads Confirmed by Mina Alcantara ([id number]) on 04/23/2020 6:49:10 PM Referred By: REFERRED SELF Confirmed By:Leo Alcantara
[2020-04-23] MEDS: RIVAROXABAN 15 MG TAB PO SCH (21:39)
[2020-04-24] MEDS: ALBUT/IPRATROP 3MG/0.5MG NEB 3 ML VIAL NEB PRN ×3 (02:15→14:28)
[2020-04-24] MEDS ORDERED: FUROSEMIDE 20 MG in SYRINGE 0 ML IV ONE (02:31)
[2020-04-24 04:58] LABS: Basophils # (auto) 0.02 K/uL (0-0.2); Basophils % (auto) 0.2 %; Eosinophils # (auto) 0.19 K/uL (0-0.5); Eosinophils % (auto) 1.8 %; Hematocrit (blood only) 39.6 % (37-47); Hemoglobin 12.5 g/dL (12.0-16.0); Immature Granulocytes # (auto) 0.03 K/uL (0.00-0.02); Immature Granulocytes % (auto) 0.3 %; Lymphocytes # (auto) 0.65 K/uL (1.2-3.4); Lymphocytes % (auto) 6.1 %; Mean Corpuscular Hemoglobin 29.3 pg (25-34); Mean Corpuscular Hgb Conc 31.6 g/dL (32-36); Mean Platelet Volume 9.5 fL (7.4-10.4); Monocytes # (auto) 0.64 K/uL (0.11-0.59); Neutrophils # (auto) 9.06 K/uL (1.4-6.5); Neutrophils % (auto) 85.6 %; Platelet Count 180 K/uL (130-400); RDW Coefficient of Variation 16.6 % (11.5-14.5); RDW Standard Deviation 56.9 fL (36.4-46.3); Red Blood Count 4.26 M/uL (4.2-5.4); White Blood Count 10.59 K/uL (4.8-10.8)
[2020-04-24] MEDS: LEVOTHYROXINE SODIUM 50 MCG TABLET PO SCH (04:59)
[2020-04-24 05:12] LABS: INR 1.5 (0.9-1.1); Partial Thromboplastin Ratio 1.4; Prothrombin Time 15.8 Seconds (9.0-12.0)
[2020-04-24 05:49] LABS: Albumin Globulin Ratio 0.7 (0.9-2); Albumin Level 3.3 gm/dl (3.4-5.0); BUN Creatinine Ratio 23.4 (10-20); Bilirubin,Total 1.1 mg/dl (0.2-1); Calcium 8.6 mg/dl (8.5-10.1); Creatinine Clr Calc Pharmacy 53.2 ml/min; Est GFR (African American) 48.3; Est GFR (Non-African American) 41.6; Globulin 4.6 gm/dl (2.5-4.0); Magnesium 2.2 mg/dl (1.8-2.4); Potassium 4.6 mmol/L (3.5-5.1); Total Protein 7.9 gm/dl (6.4-8.2)
[2020-04-24 06:25] LABS: Base Excess ABG 8.7 mEq/L (-9-1.8); HCO3 ABG 37 mmol/L (19-24); Oxygen Saturation ABG 93.4 % (90-95); PCO2 ABG 72 mmHg (35-46); PO2 ABG 72 mmHg (80-95); pH ABG 7.33 (7.35-7.45)
[2020-04-24 06:27] LABS: Allen Test Pos (Pos)
--- NOTE | 2020-04-24 06:47 | Communication Note ---
Date of Service: April 24, 2020 Pt with worsening SoB overnight, CXR showed slight progressive CHF. Increased WoB. High flow trial for PEEP benefit with minimal improvement. Lasix IV with mild-mod output, minimal improvement overnight. ABG obtained, shows hypercarbic respiratory acidosis. Pt stated on BiPAP 10/5, sign out to be given to hospitalist team.
[2020-04-24] MEDS: AZTREONAM 2,000 MG in DEXTROSE 5% 100 ML IV SCH ×3 (07:44→22:07)
[2020-04-24] MEDS: FUROSEMIDE 60 MG in SYRINGE 0 ML IV SCH ×2 (07:48→15:36)
--- NOTE | 2020-04-24 08:10 | XRay Report ---
XR chest 1V portable CLINICAL HISTORY: SOB dyspnea COMPARISON STUDY: 04/23/2020 FINDINGS: Stable cardiomegaly. Mild increase in volume of right pleural effusion. Prominent pulmonary vasculature. IMPRESSION: Mild increase in volume of right effusion. Unchanging pulmonary vasculature prominence. Stable moderate cardiomegaly. ACT 112: Negative or not required by law. The above report was generated using voice recognition software. It may contain grammatical, syntax or spelling errors. Electronically signed by: Richie Bowen M.D. 04/24/2020 8:09 AM
[2020-04-24] MEDS: INSULIN ASPART 100 UNITS/ML 3 ML PEN SC SCH ×4 (08:22→20:56)
[2020-04-24] MEDS: INSULIN HUMAN 70% NPH/30% REGULAR SC SCH ×2 (08:22→17:59)
--- NOTE | 2020-04-24 08:31 | Hospitalist Progress Note ---
Date of Service April 24, 2020 Assessment & Plan (1) Acute respiratory distress: Worsening overnight ABG overnight with CO2 retention, started on BIPAP with improving responsiveness Repeat CXR this AM noted for worsening R sided pleural effusion Repeat ABG improving Toe appears improved per pt report and my vision inspection WBC is still WNL, but higher than on admission, afebrile Initial blood cx neg, repeat pending Continue abx Repeat toe imaging neg for osteo EKG with aflutter as at baseline BP, HR stable throughout Pt has received consistent xarelto dosing making PE less likely, last dosing 04/23 HS 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 Wound care consult May need ortho c/s pending wound care assessment Initial blood cx neg, repeat pending given change in status WBC not technically elevated, but higher than on admission (3) CHF (congestive heart failure): Acute on chronic dCHF on admission CHF/atrial fibrillation/hypertension- Chest x-ray on admission suggestive of acute CHF. Holding Bumex p.o. Given furosemide 60 mg IV in the ED. Started on furosemide 40 mg IV twice daily on admission Continue diltiazem extended release 240 mg every morning, mag oxide 800 mg p.o. daily, potassium chloride 40 mEq p.o. every morning. Continue metoprolol succinate extended release 150 mg every morning. Continue Xarelto 15 mg p.o. HS COVID neg on admission ECHO with EF 50-55% and no changes noted from last ECHO on 11/10/19 Worsening CHF noted on imaging, ongoing lasix BIPAP HS Will likely need sleep study (4) Chronic venous insufficiency: Will improve with diuretics as noted for CHF above (5) Venous stasis dermatitis of both lower extremities: See above (6) Diabetic peripheral neuropathy associated with type 2 diabetes mellitus: Not on any direct treatment for peripheral neuropathy. Hold metformin. Hold insulin lispro. Continue Humulin 70/30 82 units subcu in the a.m. and 85 units subcu in the p.m. with holds SSI A1c 7.2 (7) PAD (peripheral artery disease): Continue Xarelto (8) Hyperlipidemia: Continue atorvastatin 40 mg daily (9) CKD (chronic kidney disease) stage 3, GFR 30-59 ml/min: Creatinine 1.13 on admission, with range 1.04-1.52 GFR is 47.5 with range 33.2-52.5. Follow serially on laboratories (10) COPD (chronic obstructive pulmonary disease): Duo nebs every 2 hours as needed (11) Atrial fibrillation: Continue Xarelto 15 mg p.o. daily. See above (12) Hypothyroidism: Continue levothyroxine 50 mcg daily (13) Depression with anxiety: On no direct treatment at this time, however, resumption of some form of treatment may need to be considered (14) Ear pain, right: Improving s/p debrox trial (15) Hematuria: Noted in [place] after some thrashing with earlier breathing issues and likely traumatic UA + for blood, leuk est, neg nitrites Pt without urinary complaints [employer] Unlikely that she developed a UTI given above abx Urine cx pending Admission and Anticipated Discharge Date Admission Date: April 21, 2020 Subjective Called by nursing this AM for pt less responsive and with increased WOB. BPs have been slightly elevated. HR are controlled. Now with red urine in [place], but nursing reports that pt was thrashing at different times. BS in the 110s. Overnight issues with SOB. Given additional 20IV lasix at that time and put on BIPAP. Pt is more alert at this time. She states that her R foot pain is better today. She feels it looks better. She states she feels SOB. She states she has been having L arm pain for the last 4 days. She does not have chest pain. She states that she had a chest tightness yesterday when she "could feel her aflutter come on", but this is similar to her usual aflutter episodes. Pt denies fever, abd pain, n/v/c/d. LE swelling is better also. . Review of Systems Review of Systems: Pertinent positives and negatives reviewed in HPI--all others negative Physical Exam Constitutional: WD/WN, vitals as above Eyes: normal visual figueroa by confrontation and + anicteric sclerae Neck: normal visual inspection and trachea midline Respiratory: normal respiratory effort, lungs clear to auscultation normal respiratory effort; no respiratory distress Auscultation: + crackles (bases); no wheezes Cardiovascular: Rate/Rhythm: regular rate and regular rhythm Extremities: + edema (improved) Gastrointestinal (Abdomen): Inspection/Auscultation: abdomen not distended Percussion/Palpation: abdomen soft; abdomen nontender Musculoskeletal: Head/Neck/Chest: normocephalic and head atraumatic R toes are improving in appearance, she has better ability to wiggle her toes Skin: + erythema (improved) Neurologic: awake; not confused Speech / Cognition: normal speech Psychiatric: A+Ox3, euthymic affect Results & Data Results & Data ([facility]) Vital Signs (Past 12 Hours) Vital Signs Temp Pulse Pulse Resp BP Pulse Ox 04/24/20 07:57 22 151/78 H 96 04/24/20 07:14 80 28 H 94 04/24/20 03:11 36.7 C 89 22 166/76 H 92 04/24/20 02:15 82 22 90 04/23/20 23:40 36.7 C 72 22 164/77 H 90 04/23/20 23:38 78 20 90 PG Care Time/CCT Total # of Minutes Spent Total Time Spent with Patient: Total time spent is greater than 50% in coordination of care (as documented) at patient's floor/unit and/or counseling patient: Coding Level of Care Code 46070 Subseq Hosp Care Lvl 3 Diagnoses Acute respiratory distress R06.03 Osteomyelitis of third toe of right foot M86.9 CHF (congestive heart failure) I50.9 Heart failure chronicity: chronic Heart failure type: unspecified Chronic venous insufficiency I87.2 Venous stasis dermatitis of both lower extremities I87.2 Diabetic peripheral neuropathy associated with type 2 diabetes mellitus E11.42 PAD (peripheral artery disease) I73.9 Hyperlipidemia E78.5 CKD (chronic kidney disease) stage 3, GFR 30-59 ml/min N18.3 COPD (chronic obstructive pulmonary disease) J44.9 Atrial fibrillation I48.91 Hypothyroidism E03.9 Depression with anxiety F41.8 Ear pain, right H92.01 Hematuria R31.9 (1) CHF (congestive heart failure) Heart failure chronicity: chronic Heart failure type: unspecified Qualified Code(s): I50.9 - Heart failure, unspecified
[2020-04-24] MEDS: CARBAMIDE PEROXIDE 6.5% 15 ML BTL OTR SCH ×2 (09:08→20:54)
[2020-04-24] MEDS: NYSTATIN POWDER 15GM BTL EXT SCH ×3 (09:08→20:54)
[2020-04-24] MEDS: POTASSIUM CHLORIDE 20 MEQ TABCR PO SCH (09:08)
[2020-04-24] MEDS: dilTIAZem HCL 240 MG CAPCR PO SCH (09:09)
[2020-04-24] MEDS: METOPROLOL SUCC 50MG EXT REL TAB PO SCH (09:09)
--- NOTE | 2020-04-24 09:31 | XRay Report ---
XR toe(s) RT min 2V CLINICAL HISTORY: osteo osteomyelitis COMPARISON: 04/21/2020 DISCUSSION: No significant change from the prior study. No evidence for bony destructive process invo lving the phalanges. Osteopenia involving the distal aspects of the third fourth and fifth metatarsals again noted. There is no evidence for soft tissue swelling. IMPRESSION: No evidence for osteomyelitis involving the phalanges. ACT 112: Negative or not required by law. The above report was generated using voice recognition software. It may contain grammatical, syntax or spelling errors. Electronically signed by: Richie Bowen M.D. 04/24/2020 9:29 AM
[2020-04-24 10:03] LABS: Base Excess ABG 8.6 mEq/L (-9-1.8); HCO3 ABG 36 mmol/L (19-24); Oxygen Saturation ABG 95.8 % (90-95); PCO2 ABG 61 mmHg (35-46); PO2 ABG 81 mmHg (80-95); pH ABG 7.39 (7.35-7.45)
[2020-04-24 10:17] LABS: Allen Test Pos (Pos)
--- NOTE | 2020-04-24 11:05 | Electrocardiogram Report ---
Test Reason : Blood Pressure : / mmHG Vent. Rate : 091 BPM Atrial Rate : 083 BPM P-R Int : 000 ms QRS Dur : 092 ms QT Int : 372 ms P-R-T Axes : 000 -16 047 degrees QTc Int : 457 ms Likely atrial flutter Low voltage QRS Nonspecific ST abnormality Abnormal ECG When compared with ECG of 23-APR-2020 13:52, Nonspecific T wave abnormality no longer evident in Lateral leads QT has shortened Confirmed by Mina Alcantara ([id number]) on 04/24/2020 11:05:43 AM Referred By: REFERRED SELF Confirmed By:Leo Alcantara
[2020-04-24 11:27] LABS: Appearance Urine Cloudy (Clear); Bacteria Urine Automated Negative (Negative); Bilirubin Urine Negative (Negative); Blood Urine 3+ (Negative); Color Urine Orange; Epithelial Cell Urine Auto 0-5 /lpf (0-5); Glucose Urine UA Negative (Negative); Ketones Urine Negative (Negative); Leukocyte Esterase Urine 1+ (Negative); Nitrite Urine Negative (Negative); Protein Urine 2+ (Negative); RBC Urine Automated >30 /hpf (0-4); Specific Gravity Urine 1.017 (1.000-1.030); Urobilinogen Urine Negative (Negative)
[2020-04-24] MEDS: DAPTOmycin 500 MG in SYRINGE 0 ML IV SCH (12:36)
[2020-04-24] MEDS: MAGNESIUM OXIDE 400 MG TAB PO SCH (12:37)
[2020-04-24] MEDS: CHOLECALCIFEROL 1,000 UNITS 25 MCG TAB PO SCH (12:37)
[2020-04-24] MEDS: allopurinoL 100 MG TAB PO SCH (17:05)
[2020-04-24] MEDS: RIVAROXABAN 15 MG TAB PO SCH (20:53)
[2020-04-25] MEDS ORDERED: MoRPHine SULFATE 2 MG/ML CARP IV STA (00:53)
[2020-04-25] MEDS: NITROGLYCERIN 2% OINTMENT 30GM TUBE EXT SCH ×4 (01:13→19:40)
[2020-04-25 02:45] LABS: Base Excess ABG 7.7 mEq/L (-9-1.8); HCO3 ABG 36 mmol/L (19-24); Oxygen Saturation ABG 93.6 % (90-95); PCO2 ABG 74 mmHg (35-46); PO2 ABG 73 mmHg (80-95); pH ABG 7.31 (7.35-7.45)
[2020-04-25 02:49] LABS: Allen Test Pos (Pos)
[2020-04-25] MEDS: LEVOTHYROXINE SODIUM 50 MCG TABLET PO SCH (05:49)
[2020-04-25] MEDS: AZTREONAM 2,000 MG in DEXTROSE 5% 100 ML IV SCH ×3 (06:03→22:23)
[2020-04-25] MEDS: ALBUT/IPRATROP 3MG/0.5MG NEB 3 ML VIAL NEB PRN ×3 (07:00→15:47)
[2020-04-25] MEDS: POTASSIUM CHLORIDE 20 MEQ TABCR PO SCH (08:31)
[2020-04-25] MEDS: dilTIAZem HCL 240 MG CAPCR PO SCH (08:32)
[2020-04-25] MEDS: METOPROLOL SUCC 50MG EXT REL TAB PO SCH (08:32)
[2020-04-25] MEDS: CARBAMIDE PEROXIDE 6.5% 15 ML BTL OTR SCH ×2 (08:32→19:42)
[2020-04-25] MEDS: INSULIN ASPART 100 UNITS/ML 3 ML PEN SC SCH ×4 (08:32→20:03)
[2020-04-25] MEDS: INSULIN HUMAN 70% NPH/30% REGULAR SC SCH ×2 (08:33→16:33)
[2020-04-25] MEDS: NYSTATIN POWDER 15GM BTL EXT SCH ×3 (08:33→19:43)
[2020-04-25] MEDS: FUROSEMIDE 60 MG in SYRINGE 0 ML IV SCH ×2 (09:10→16:34)
[2020-04-25] MEDS: CHOLECALCIFEROL 1,000 UNITS 25 MCG TAB PO SCH (12:09)
[2020-04-25] MEDS: DAPTOmycin 500 MG in SYRINGE 0 ML IV SCH (12:09)
[2020-04-25] MEDS: MAGNESIUM OXIDE 400 MG TAB PO SCH (12:11)
--- NOTE | 2020-04-25 14:09 | XRay Report ---
XR chest 1V portable CLINICAL HISTORY: SOB dyspnea COMPARISON STUDY: 04/24/2020 FINDINGS: Progressive increase in density right mid to lower lung. Mild increase in volume of right e ffusion. Progressive infiltrative change left lung base. Prominent pulmonary vasculature. IMPRESSION: Progressive components of congestive failure versus bilateral parenchymal infiltrates. ACT 112: Negative or not required by law. The above report was generated using voice recognition software. It may contain grammatical, syntax or spelling errors. Electronically signed by: Richie Bowen M.D. 04/25/2020 2:07 PM
[2020-04-25] MEDS: allopurinoL 100 MG TAB PO SCH (18:05)
--- NOTE | 2020-04-25 19:15 | Electrocardiogram Report ---
Test Reason : Blood Pressure : / mmHG Vent. Rate : 083 BPM Atrial Rate : 083 BPM P-R Int : 146 ms QRS Dur : 100 ms QT Int : 394 ms P-R-T Axes : 000 -13 063 degrees QTc Int : 462 ms Atrial flutter Low voltage QRS Nonspecific ST abnormality Abnormal ECG When compared with ECG of 24-APR-2020 08:13, No significant change Confirmed by Gerard Durbin ([id number]) on 04/25/2020 7:15:08 PM Referred By: REFERRED SELF Confirmed By:Gerard Durbin
[2020-04-25] MEDS: RIVAROXABAN 15 MG TAB PO SCH (19:42)
--- NOTE | 2020-04-25 20:09 | Hospitalist Progress Note ---
Date of Service April 25, 2020 Assessment & Plan (1) Acute respiratory distress: Worsening overnight on 04/23-04/24, better today s/p BIPAP overnight ABG overnight with CO2 retention, started on BIPAP with improving responsiveness Repeat CXR again noted for progressing CHF, sx are better Repeat ABG yesterday was improved, back to increased CO2 today Toe appears improved per pt report and my vision inspection WBC is still WNL, but higher than on admission, afebrile Initial blood cx neg, repeat pending in case of sx being worsened by worsening infxn (seems less likely given improved clinical appearance) Continue abx Repeat toe imaging neg for osteo EKG with aflutter as at baseline BP, HR stable throughout Pt has received consistent xarelto dosing making PE less likely, takes HS 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 Herman for persistent pleural effusions, pulm c/s pending given CT services no longer available at [facility] (2) Osteomyelitis of third toe of right foot: Diabetic foot ulcer/osteomyelitis- Place on vancomycin IV and aztreonam IV. Wound care consult May need ortho c/s pending wound care assessment Initial blood cx neg, repeat pending given change in status WBC not technically elevated, but higher than on admission (3) CHF (congestive heart failure): Acute on chronic diastolic CHF on admission CHF/atrial fibrillation/hypertension- Chest x-ray on admission suggestive of acute CHF. Holding Bumex p.o. Given furosemide 60 mg IV in the ED. Started on furosemide 40 mg IV twice daily on admission Continue diltiazem extended release 240 mg every morning, mag oxide 800 mg p.o. daily, potassium chloride 40 mEq p.o. every morning. Continue metoprolol succinate extended release 150 mg every morning. Continue Xarelto 15 mg p.o. HS COVID neg on admission ECHO with EF 50-55% and no changes noted from last ECHO on 11/10/19 Worsening CHF noted on imaging, ongoing lasix BIPAP HS Will likely need sleep study (4) Chronic venous insufficiency: Will improve with diuretics as noted for CHF above (5) Venous stasis dermatitis of both lower extremities: See above (6) Diabetic peripheral neuropathy associated with type 2 diabetes mellitus: Not on any direct treatment for peripheral neuropathy. Hold metformin. Hold insulin lispro. Continue Humulin 70/30 82 units subcu in the a.m. and 85 units subcu in the p.m. with holds SSI A1c 7.2 (7) PAD (peripheral artery disease): Continue Xarelto (8) Hyperlipidemia: Continue atorvastatin 40 mg daily (9) CKD (chronic kidney disease) stage 3, GFR 30-59 ml/min: Creatinine 1.13 on admission, with range 1.04-1.52 GFR is 47.5 with range 33.2-52.5. Follow serially on laboratories (10) COPD (chronic obstructive pulmonary disease): Duo nebs every 2 hours as needed (11) Atrial fibrillation: Continue Xarelto 15 mg p.o. daily. See above (12) Hypothyroidism: Continue levothyroxine 50 mcg daily (13) Depression with anxiety: On no direct treatment at this time, however, resumption of some form of treatment may need to be considered (14) Ear pain, right: Improving s/p debrox trial (15) Hematuria: Noted in [place] after some thrashing with earlier breathing issues and likely traumatic UA + for blood, leuk est, neg nitrites Pt without urinary complaints [employer] Unlikely that she developed a UTI given above abx Urine cx + for leuk est, neg nitrites in the setting of [place], cx pending Admission and Anticipated Discharge Date Admission Date: April 21, 2020 Subjective Pt feels better. Still SOB. She states that her R foot pain continues to improve. She feels it looks better. She is eating without issue. Pt denies fever, abd pain, n/v/c/d. LE swelling is better also. . Review of Systems Review of Systems: Pertinent positives and negatives reviewed in HPI--all others negative Physical Exam Constitutional: WD/WN, vitals as above Eyes: normal visual figueroa by confrontation and + anicteric sclerae Neck: normal visual inspection and trachea midline Respiratory: normal respiratory effort, lungs clear to auscultation normal respiratory effort; no respiratory distress Auscultation: + crackles (bases); no wheezes Cardiovascular: Rate/Rhythm: regular rate and regular rhythm Extremities: + edema (improved) Gastrointestinal (Abdomen): Inspection/Auscultation: abdomen not distended Percussion/Palpation: abdomen soft; abdomen nontender Musculoskeletal: Head/Neck/Chest: normocephalic and head atraumatic Skin: + erythema (improved) Neurologic: awake; not confused Speech / Cognition: normal speech Psychiatric: A+Ox3, euthymic affect Results & Data Results & Data ([facility]) Vital Signs (Past 12 Hours) Vital Signs Temp Pulse Resp BP Pulse Ox 04/25/20 15:47 77 20 87 L 04/25/20 15:25 36.9 C 75 25 H 173/73 H 90 04/25/20 11:30 73 20 90 04/25/20 11:15 36.4 C L 77 20 153/70 H 90 PG Care Time/CCT Total # of Minutes Spent Total Time Spent with Patient: Total time spent is greater than 50% in coordination of care (as documented) at patient's floor/unit and/or counseling patient: Coding Level of Care Code 08048 Subseq Hosp Care Lvl 3 Diagnoses Acute respiratory distress R06.03 Osteomyelitis of third toe of right foot M86.9 CHF (congestive heart failure) I50.9 Heart failure chronicity: chronic Heart failure type: unspecified Chronic venous insufficiency I87.2 Venous stasis dermatitis of both lower extremities I87.2 Diabetic peripheral neuropathy associated with type 2 diabetes mellitus E11.42 PAD (peripheral artery disease) I73.9 Hyperlipidemia E78.5 CKD (chronic kidney disease) stage 3, GFR 30-59 ml/min N18.3 COPD (chronic obstructive pulmonary disease) J44.9 Atrial fibrillation I48.91 Hypothyroidism E03.9 Depression with anxiety F41.8 Ear pain, right H92.01 Hematuria R31.9 (1) CHF (congestive heart failure) Heart failure chronicity: chronic Heart failure type: unspecified Qualified Code(s): I50.9 - Heart failure, unspecified
[2020-04-26] MEDS: ONDANSETRON INJ 2 MG/ML 2 ML VIAL IV PRN (00:01)
[2020-04-26] MEDS: NITROGLYCERIN 2% OINTMENT 30GM TUBE EXT SCH ×5 (01:08→23:32)
[2020-04-26] MEDS: AZTREONAM 2,000 MG in DEXTROSE 5% 100 ML IV SCH ×3 (06:05→23:32)
[2020-04-26] MEDS: LEVOTHYROXINE SODIUM 50 MCG TABLET PO SCH (06:06)
[2020-04-26] MEDS: ALBUT/IPRATROP 3MG/0.5MG NEB 3 ML VIAL NEB PRN (06:50)
[2020-04-26] MEDS: INSULIN ASPART 100 UNITS/ML 3 ML PEN SC SCH ×4 (08:11→21:19)
[2020-04-26] MEDS: NYSTATIN POWDER 15GM BTL EXT SCH ×3 (08:11→21:17)
[2020-04-26] MEDS: FUROSEMIDE 60 MG in SYRINGE 0 ML IV SCH ×2 (08:11→16:01)
[2020-04-26] MEDS: INSULIN HUMAN 70% NPH/30% REGULAR SC SCH ×2 (08:11→16:01)
[2020-04-26] MEDS: dilTIAZem HCL 240 MG CAPCR PO SCH ×2 (08:12→15:15)
[2020-04-26] MEDS: CARBAMIDE PEROXIDE 6.5% 15 ML BTL OTR SCH (08:12)
[2020-04-26] MEDS: METOPROLOL SUCC 50MG EXT REL TAB PO SCH ×2 (08:12→15:15)
[2020-04-26] MEDS: POTASSIUM CHLORIDE 20 MEQ TABCR PO SCH (08:12)
[2020-04-26 08:54] LABS: Allen Test Pos (Pos); Base Excess ABG 5.8 mEq/L (-9-1.8); HCO3 ABG 37 mmol/L (19-24); PCO2 ABG 97 mmHg (35-46); PO2 ABG 65 mmHg (80-95)
[2020-04-26 09:36] LABS: C Reactive Protein 5.83 mg/dl (0-0.29)
[2020-04-26 10:11] LABS: Base Excess ABG 5.7 mEq/L (-9-1.8); HCO3 ABG 36 mmol/L (19-24); Oxygen Saturation ABG 84.3 % (90-95); PCO2 ABG 86 mmHg (35-46); PO2 ABG 54 mmHg (80-95); pH ABG 7.24 (7.35-7.45)
[2020-04-26] MEDS: MAGNESIUM OXIDE 400 MG TAB PO SCH (10:33)
[2020-04-26] MEDS: CHOLECALCIFEROL 1,000 UNITS 25 MCG TAB PO SCH (10:33)
[2020-04-26] MEDS: DAPTOmycin 500 MG in SYRINGE 0 ML IV SCH (10:59)
--- NOTE | 2020-04-26 14:15 | Critical Care Consultation ---
Date of Consultation April 26, 2020 Assessment & Plan (1) Hypercapnic respiratory failure: Chest x-ray 04/25/2020 personally reviewed: Increased pulmonary vascular markings, blunted bilateral costophrenic and cardiophrenic angles, increased cardiac silhouette. Goes more along with pulmonary edema --Acute on chronic hypercapnic respiratory failure Likely secondary to combination of JACKIE/OHS Patient is tolerating BiPAP right now I would continue with the BiPAP for the time being and keep a very close eye on her If there is any clinical deterioration I would intubate her for ventilatory failure Avoid any sedating medication I highly doubt that the patient has pneumonia. Irrespective she is already on antibiotics for her osteo. Covid-19 PCR was negative on 04/21/2020. --Diastolic CHF BNP: 3248 on 04/26/2020 EF 50-55% on echo done this admission Continue with diuretics as tolerated Keep negative balance, strict in and outs Monitor electrolytes Continue with BiPAP --A. fib Rate controlled On Xarelto --Osteomyelitis of the third toe of the right foot ESR: 61, CRP: 5.83 on 04/26/2020 Continue with antibiotics as tolerated Would monitor CPK given the patient is on daptomycin There is no eosinophilia appreciated on the blood work which rules out DRESS syndrome --CKD Monitor BUNs/creatinine Avoid nephrotoxic medication --Diabetes type 2 Continue with ICU hyperglycemia protocol --Morbid obesity with high likelihood of JACKIE/OHS Continue with BiPAP nightly and PRN shortness of breath Patient will benefit from BiPAP on being discharged from the hospital --Hypothyroidism Continue with levothyroxine We will order TSH --Dyslipidemia On atorvastatin --Prophylaxis VTE: Xarelto Lines: Peripheral Diet: N.p.o. for the time being Plan: Patient spontaneous breathing rate is a 20 she is getting tidal volume of around 400. Continue with BiPAP. We will repeat ABG later today. Aspiration precaution. Avoid sedative medications. If there is any clinical deterioration in the mental status will intubate the patient for respiratory failure. Continue with diuretics to have negative balance will consider increasing furosemide to 80 mg if there is no good output. Creatinine 1.26 today. It went up a little bit compared to yesterday. Monitor BUNs/creatinine Follow-up TSH updated at bedside. Dr. Walsh updated regarding the transfer. I have personally spent 63 minutes of critical care time in the direct management of this patient. This is a life/limb threatening event. This includes time spent evaluating patient, direct bedside care, chart review, placing orders, interpretation of diagnostic studies, discussion with consultants, patient, and family members, as well as other required patient management activities. This time is exclusive of all separately billable procedures, and teaching time and separate from and in addition to any other critical care service time. Please note the above document was generated using voice recognition software. It may contain grammatical, syntax or spelling errors. History of Present Illness Attending Physician: Ba Walsh History of Present Illness 74-year-old female with past medical history of diastolic CHF, morbid obesity diabetes type 2, hypertension history of endometrial cancer depression, peripheral neuropathy, A. fib, CKD was admitted to the hospital because of osteomyelitis of the right toe with MRSA infection. She is on antibiotics for it. Patient also had fluid overload and diastolic CHF appreciated while in the hospital based on the chest x-ray. Pulmonary was consulted today because of worsening hypoxia and infiltrates. Today at the time of examination patient was obtunded on BiPAP getting tidal volumes of 250 on 10/5 40% saturating 100%. ABG done during that time showed 7.20/97/65 Unchanged BiPAP setting to 16/6 and patient was getting tidal volumes of 400- 500. I repeated ABG and like an hour which showed pH 7.24/86/54 I saw the patient around noon she is more alert but still lethargic. They are having hard time getting ABGs on her. Patient's was at bedside and I discussed regarding intubation if need be if there is worsening in mental status. I will transfer the patient to MICU. Other history has been taken from the previous chart. Allergies Allergy/AdvReac Type Severity Reaction Status Date / Time Penicillins Allergy Intermediate HIVES Verified 04/21/20 19:35 mineral oil Allergy Unknown Verified 04/21/20 19:35 metronidazole AdvReac Unknown NAUSEA Verified 04/21/20 19:35 ceresin [From Eucerin] AdvReac Redness of Verified 04/21/20 19:35 Skin emollient combination no.33 AdvReac Redness of Verified 04/21/20 19:35 [From Eucerin] Skin isopropyl myristate AdvReac Redness of Verified 04/21/20 19:35 [From Eucerin] Skin lanolin alcohols AdvReac Redness of Verified 04/21/20 19:35 [From Eucerin] Skin mineral oil [From Eucerin] AdvReac Redness of Verified 04/21/20 19:35 Skin soap [From Eucerin] AdvReac Redness of Verified 04/21/20 19:35 Skin water [From Eucerin] AdvReac Redness of Verified 04/21/20 19:35 Skin Home Medications Home Medications Medication Instructions Recorded Confirmed Type acetaminophen [Tylenol Extra 500 mg PO Q4H PRN 09/18/18 04/21/20 History Strength] cholecalciferol (vitamin D3) 2,000 units PO DAILY@1200 09/18/18 04/21/20 History [Vitamin D3] Oxygen Home #1 ea 04/03/19 03/22/20 History albuterol sulfate 2.5 mg INHALATION Q4 PRN ml 04/24/19 04/21/20 History albuterol sulfate 90 mcg/actuation 1 - 2 puff INHALATION Q4H PRN #18 09/01/19 04/21/20 Rx aerosol inhaler gm magnesium oxide 800 mg PO DAILY@1200 tab 10/27/19 04/21/20 History pen needle, diabetic 29 gauge x #200 ea 12/23/19 03/22/20 Rx 1/2" allopurinol 100 mg tablet 100 mg PO DAILY@1800 #90 tab 02/26/20 04/21/20 Rx atorvastatin 40 mg tablet 40 mg PO DAILY #90 tab 02/26/20 04/21/20 Rx bumetanide 1 mg tablet See Rx Instructions PO BID tab 02/26/20 04/21/20 History diltiazem HCl 240 mg 240 mg PO QAM #90 cap 02/26/20 04/21/20 Rx capsule,extended release 24 hr insulin lispro 100 unit/mL 10 units SUBCUT DAILY@1200 ml 02/26/20 04/21/20 History subcutaneous pen levothyroxine 50 mcg tablet 50 mcg PO QAM #90 tab 02/26/20 04/21/20 Rx metformin 500 mg tablet See Rx Instructions .ROUTE 02/26/20 04/21/20 Rx .COMPLEX #270 tablet metoprolol succinate 100 mg 150 mg PO QAM #90 tab 02/26/20 04/21/20 Rx tablet,extended release 24 hr potassium chloride 20 mEq 40 meq PO QAM #180 tab 02/26/20 04/21/20 Rx tablet,extended release(part/cryst) rivaroxaban 15 mg tablet 15 mg PO QPM #90 tab 02/26/20 04/21/20 Rx lidocaine 1 patch TOP DAILY PRN #15 ea 03/08/20 04/21/20 Rx blood sugar diagnostic See Rx Instructions .ROUTE 04/07/20 04/13/20 Rx .COMPLEX #100 strip insulin NPH-regular 70-30 U-100 82 unit SUBCUT QAM #160 ml 04/07/20 04/21/20 Rx insulin 100 unit/mL subcutaneous pen insulin NPH and regular human 85 unit SUBCUT QPM 04/21/20 04/21/20 History [Humulin 70/30 U-100 KwikPen] nystatin [Nystop] 1 applic TOPICAL TID 04/21/20 04/21/20 History Patient History Medical History Acquired claw toe of left foot (Acute) Acquired claw toe of right foot (Acute) Atrial flutter (Inactive) Basal cell carcinoma, face (Resolved) Bilateral swelling of feet (Acute) Callus (Acute) DM (diabetes mellitus), type 2 Hypertension (Inactive) Hypertension (Inactive) Pleural effusion (Inactive) Sciatica (Inactive) Surgical History Hx of salpingo-oophorectomy, bilateral S/P hysterectomy (Chronic) S/P Mohs surgery for basal cell carcinoma (Acute) S/P thoracentesis (Inactive) Family History Father Coronary heart disease Myocardial infarction Mother Alzheimer disease Denies family history of Ovarian cancer Prostate cancer Breast cancer Colorectal cancer Social History Smoking Status: Never smoker Second Hand Exposure: No; Hx Alcohol Use: No Hx Substance Use: No Preferred Language: Portuguese Communication Ability: Effective Visual Impairment: Limited Group Captain Required: No Beliefs That Will Affect Care: None marital status: Current Living Situation: Spouse current occupational status: retired How many Children do You have: 0 Feels Safe at Home: Yes Dental Care, Regularly: Yes Physical Activity Frequency: 1-2 Times per Week Sunscreen Use: No Review of Systems Review of Systems: All systems reviewed & are unremarkable except as noted in HPI & below and Unobtainable due to cognitive status Physical Exam Physical Exam: Constitutional: No acute distress HEENT: EOMI, PERRLA, thick neck Respiratory system: Decreased air entry bilaterally, mild crackles bilateral lower lobes, no wheeze, no rhonchi CVS: S1-S2 positive, no murmurs or gallops, distant heart sounds Abdomen: Soft, nontender, nondistended, positive bowel sounds x4, obese Extremities: +2 pulses bilaterally radialis/ dorsalis pedis, no cyanosis, positive pitting edema bilateral lower extremity, compression stockings bilateral lower extremity Neuro: Somnolent, responding to voice and answering simple questions, moving all extremities on command Psych: Unable to assess G/U: Positive Marino Skin: no rashes, warm and dry Lymphatic: no cervical or axillary lymphadenopathy Results & Data Results & Data ([facility]) Vital Signs (Past 12 Hours) Vital Signs Temp Pulse Pulse Resp BP Pulse Ox 04/26/20 11:44 36.6 C 93 H 20 149/85 H 96 04/26/20 11:07 92 H 25 H 95 04/26/20 07:48 36.5 C 84 22 154/75 H 97 04/26/20 07:16 85 04/26/20 06:54 88 25 H 98 04/26/20 06:53 88 25 H 98 04/26/20 03:58 36.5 C 78 18 170/83 H 98 04/24/20 04:39 04/24/20 04:39 Coding Level of Care Code Critical Care 1st 30-74 mins Diagnoses Hypercapnic respiratory failure J96.92 Time Spent (min) 63
[2020-04-26] MEDS: allopurinoL 100 MG TAB PO SCH (16:42)
[2020-04-26 16:59] LABS: iSTAT Arterial Blood Gas HCO3 39 meg/L (19-24); iSTAT Arterial Blood Gas pCO2 86 mmHg (35-46); iSTAT Arterial Blood Gas pH 7.27 (7.35-7.45); iSTAT Arterial Blood Gas pO2 68 mmHg (80-95); iSTAT Carbon Dioxide > 40 mmol/L (24-31); iSTAT FiO2 40 %; iSTAT Site L Brachial
[2020-04-26] MEDS: RIVAROXABAN 15 MG TAB PO SCH (21:22)
--- NOTE | 2020-04-26 22:48 | Hospitalist Progress Note ---
Date of Service April 26, 2020 Assessment & Plan (1) Acute respiratory distress: Worsening overnight on 04/23-04/24, better today s/p BIPAP overnight Patient continues to have acute respiratory Hypercapnea. continue BIPAP will transfer patient to ICU (2) Osteomyelitis of third toe of right foot: Diabetic foot ulcer/osteomyelitis- Place on vancomycin IV and aztreonam IV. Wound care consult May need ortho c/s pending wound care assessment Initial blood cx neg, repeat pending given change in status WBC not technically elevated, but higher than on admission (3) CHF (congestive heart failure): Acute on chronic diastolic CHF on admission CHF/atrial fibrillation/hypertension- Chest x-ray on admission suggestive of acute CHF. Holding Bumex p.o. Given furosemide 60 mg IV in the ED. Started on furosemide 40 mg IV twice daily on admission Continue diltiazem extended release 240 mg every morning, mag oxide 800 mg p.o. daily, potassium chloride 40 mEq p.o. every morning. Continue metoprolol succinate extended release 150 mg every morning. Continue Xarelto 15 mg p.o. HS COVID neg on admission ECHO with EF 50-55% and no changes noted from last ECHO on 11/10/19 Worsening CHF noted on imaging, ongoing lasix (4) Chronic venous insufficiency: Will improve with diuretics as noted for CHF above (5) Venous stasis dermatitis of both lower extremities: See above (6) Diabetic peripheral neuropathy associated with type 2 diabetes mellitus: Not on any direct treatment for peripheral neuropathy. Hold metformin. Hold insulin lispro. Continue Humulin 70/30 82 units subcu in the a.m. and 85 units subcu in the p.m. with holds SSI A1c 7.2 (7) PAD (peripheral artery disease): Continue Xarelto (8) Hyperlipidemia: Continue atorvastatin 40 mg daily (9) CKD (chronic kidney disease) stage 3, GFR 30-59 ml/min: Creatinine 1.13 on admission, with range 1.04-1.52 GFR is 47.5 with range 33.2-52.5. Follow serially on laboratories (10) COPD (chronic obstructive pulmonary disease): Duo nebs every 2 hours as needed (11) Atrial fibrillation: Continue Xarelto 15 mg p.o. daily. See above (12) Hypothyroidism: Continue levothyroxine 50 mcg daily (13) Depression with anxiety: On no direct treatment at this time, however, resumption of some form of treatment may need to be considered (14) Ear pain, right: Improving s/p debrox trial (15) Hematuria: Noted in [place] after some thrashing with earlier breathing issues and likely traumatic UA + for blood, leuk est, neg nitrites Pt without urinary complaints [employer] Unlikely that she developed a UTI given above abx Urine cx + for leuk est, neg nitrites in the setting of montesinos, cx pending Admission and Anticipated Discharge Date Admission Date: April 21, 2020 Subjective Patient is somnolent. Review of Systems Review of Systems: All systems reviewed & are unremarkable except as noted in HPI & below Physical Exam Physical Exam: Constitutional: WD/WN, vitals as above Eyes: normal visual figueroa by confrontation and + anicteric sclerae Neck: normal visual inspection and trachea midline Respiratory: normal respiratory effort, lungs clear to auscultation normal respiratory effort; no respiratory distress Auscultation: tight, decreased breath sounds Cardiovascular: Rate/Rhythm: regular rate and regular rhythm Extremities: + edema (improved) Gastrointestinal (Abdomen): Inspection/Auscultation: abdomen not distended Percussion/Palpation: abdomen soft; abdomen nontender Musculoskeletal: Head/Neck/Chest: normocephalic and head atraumatic Skin: + erythema (improved) Neurologic: awake; not confused Speech / Cognition: normal speech Psychiatric: A+Ox3, euthymic affect Results & Data Results & Data ([facility]) Vital Signs (Past 12 Hours) Vital Signs Temp Pulse Pulse Resp BP BP Pulse Ox 04/26/20 21:00 82 25 H 92 04/26/20 20:22 88 25 H 142/73 H 94 04/26/20 20:01 89 24 95 04/26/20 20:00 88 24 96 04/26/20 19:23 94 H 21 101/63 91 04/26/20 19:22 93 H 31 H 73/58 L 96 04/26/20 19:00 36.6 C 87 23 101/63 96 04/26/20 14:07 100 H 28 H 91 04/26/20 14:00 36.8 C 100 H 102 H 24 147/92 H 97 04/26/20 11:44 36.6 C 93 H 20 149/85 H 96 04/26/20 11:07 92 H 25 H 95 PG Care Time/CCT Total # of Minutes Spent Total Time Spent with Patient: Total time spent is greater than 50% in coordination of care (as documented) at patient's floor/unit and/or counseling patient: Coding Level of Care Code 82079 Subseq Hosp Care Lvl 3 Diagnoses Acute respiratory distress R06.03 Osteomyelitis of third toe of right foot M86.9 CHF (congestive heart failure) I50.9 Heart failure chronicity: chronic Heart failure type: unspecified Chronic venous insufficiency I87.2 Venous stasis dermatitis of both lower extremities I87.2 Diabetic peripheral neuropathy associated with type 2 diabetes mellitus E11.42 PAD (peripheral artery disease) I73.9 Hyperlipidemia E78.5 CKD (chronic kidney disease) stage 3, GFR 30-59 ml/min N18.3 COPD (chronic obstructive pulmonary disease) J44.9 Atrial fibrillation I48.91 Hypothyroidism E03.9 Depression with anxiety F41.8 Ear pain, right H92.01 Hematuria R31.9 Time Spent (min) 35 (1) CHF (congestive heart failure) Heart failure chronicity: chronic Heart failure type: unspecified Qualified Code(s): I50.9 - Heart failure, unspecified
[2020-04-27 04:54] LABS: Basophils # (auto) 0.04 K/uL (0-0.2); Basophils % (auto) 0.4 %; Eosinophils # (auto) 0.43 K/uL (0-0.5); Eosinophils % (auto) 4.7 %; Hematocrit (blood only) 39.4 % (37-47); Hemoglobin 11.8 g/dL (12.0-16.0); Immature Granulocytes # (auto) 0.06 K/uL (0.00-0.02); Immature Granulocytes % (auto) 0.7 %; Lymphocytes # (auto) 0.59 K/uL (1.2-3.4); Lymphocytes % (auto) 6.5 %; Mean Corpuscular Hemoglobin 28.4 pg (25-34); Mean Corpuscular Hgb Conc 29.9 g/dL (32-36); Mean Corpuscular Volume 94.7 fL (80-100); Mean Platelet Volume 9.4 fL (7.4-10.4); Monocytes # (auto) 1.15 K/uL (0.11-0.59); Monocytes % (auto) 12.6 %; Neutrophils # (auto) 6.85 K/uL (1.4-6.5); Neutrophils % (auto) 75.1 %; Platelet Count 211 K/uL (130-400); RDW Standard Deviation 55.4 fL (36.4-46.3); Red Blood Count 4.16 M/uL (4.2-5.4); White Blood Count 9.12 K/uL (4.8-10.8)
[2020-04-27 05:02] LABS: INR 1.3 (0.9-1.1)
[2020-04-27 05:16] LABS: Albumin Level 2.4 gm/dl (3.4-5.0); BUN Creatinine Ratio 34.2 (10-20); Calcium 8.2 mg/dl (8.5-10.1); Creatinine Clr Calc Pharmacy 35.7 ml/min; Est GFR (African American) 29.2; Est GFR (Non-African American) 25.2; Magnesium 2.5 mg/dl (1.8-2.4); Potassium 5.1 mmol/L (3.5-5.1)
[2020-04-27 05:19] LABS: Albumin Globulin Ratio 0.6 (0.9-2); Bilirubin,Total 0.6 mg/dl (0.2-1); Globulin 3.9 gm/dl (2.5-4.0); Phosphorus 5.4 mg/dl (2.5-4.9); Total Protein 6.3 gm/dl (6.4-8.2)
[2020-04-27 05:23] LABS: iSTAT Allen Test Pass; iSTAT Arterial Blood Gas HCO3 38 meg/L (19-24); iSTAT Arterial Blood Gas pCO2 80 mmHg (35-46); iSTAT Arterial Blood Gas pH 7.28 (7.35-7.45); iSTAT Arterial Blood Gas pO2 82 mmHg (80-95); iSTAT Carbon Dioxide > 40 mmol/L (24-31); iSTAT FiO2 40 %; iSTAT Site R Radial
[2020-04-27] MEDS: LEVOTHYROXINE SODIUM 50 MCG TABLET PO SCH (06:17)
--- NOTE | 2020-04-27 07:12 | XRay Report ---
XR chest 1V portable CLINICAL HISTORY: Follow-up dyspnea COMPARISON STUDY: 04/25/2020 FINDINGS: Unchanged right basilar parenchymal infiltrate. Unchanged minimal left basilar parenchymal infiltrate. Moderate stable cardiomegaly. Prominent pulmonary vasculature. IMPRESSION: Stable components of congestive failure versus diffuse bilateral bibasilar parenchymal i nfiltrative change. ACT 112: Negative or not required by law. The above report was generated using voice recognition software. It may contain grammatical, syntax or spelling errors. Electronically signed by: Richie Bowen M.D. 04/27/2020 7:10 AM
[2020-04-27] MEDS: AZTREONAM 2,000 MG in DEXTROSE 5% 100 ML IV SCH ×3 (08:19→22:40)
--- NOTE | 2020-04-27 08:19 | Ultrasound Report ---
ULTRASOUND RIGHT UPPER QUADRANT ABDOMEN CLINICAL HISTORY: Elevated hepatic transaminases. COMPARISON STUDY: Abdominal CT dated 09/18/2018. TECHNIQUE: Real-time, grayscale, and color flow sonography of the right upper quadrant of the abdomen was performed. Images are reviewed in the transverse and longitudinal planes. The examination is deg raded by large body habitus. FINDINGS: Liver: The liver is normal in size heterogeneous in echotexture. Nodularity of the surface contour in dicates cirrhosis. There is no intrahepatic biliary ductal dilatation. The main portal vein is patent . Gallbladder: The gallbladder is filled with stones and sludge. The gallbladder wall is mildly thicken ed measuring up to 5 mm. A sonographic Rust's sign is reportedly absent. The common bile duct measu res up to 0.5 cm in diameter. Pancreas: Visualized portions of the pancreatic head are normal in appearance. Majority of the pancre as was not visualized. The splenic vein is patent. Right kidney: Survey images of the right kidney demonstrate cortical atrophy. There is no hydronephro sis. Ascites: None. IMPRESSION: 1. The liver is cirrhotic in morphology and heterogeneous in echotexture. 2. There is a small volume of upper abdominal ascites. 3. Stones and sludge are noted within the gallbladder. 4. Mild gallbladder wall thickening is nonspecific and likely related to cirrhosis and ascites. There is no clear sonographic evidence of acute cholecystitis. ACT 112: Negative or not required by law. Electronically signed by: Ryan Montero M.D. 04/27/2020 8:17 AM
[2020-04-27] MEDS: METOPROLOL SUCC 50MG EXT REL TAB PO SCH (08:20)
[2020-04-27] MEDS: dilTIAZem HCL 240 MG CAPCR PO SCH (08:20)
[2020-04-27] MEDS: NITROGLYCERIN 2% OINTMENT 30GM TUBE EXT SCH ×3 (08:21→17:24)
[2020-04-27] MEDS: NYSTATIN POWDER 15GM BTL EXT SCH ×3 (08:21→19:27)
[2020-04-27] MEDS: DEXTROSE 50% 50 ML SYRINGE IV PRN ×2 (08:45→12:22)
[2020-04-27] MEDS: INSULIN ASPART 100 UNITS/ML 3 ML PEN SC SCH ×4 (08:48→21:05)
[2020-04-27] MEDS: INSULIN HUMAN 70% NPH/30% REGULAR SC SCH (08:48)
--- NOTE | 2020-04-27 08:57 | Critical Care Progress Note ---
Date of Service April 27, 2020 Assessment & Plan (1) Hypercapnic respiratory failure: Chest x-ray 04/25/2020 personally reviewed: Increased pulmonary vascular markings, blunted bilateral costophrenic and cardiophrenic angles, increased cardiac silhouette. Goes more along with pulmonary edema --Acute on chronic hypercapnic respiratory failure Likely secondary to combination of JACKIE/OHS Patient is tolerating BiPAP right now Continue with the BiPAP for the time being and keep a very close eye on her If there is any clinical deterioration, intubation would be needed. Avoid any sedating medication I highly doubt that the patient has pneumonia. Irrespective she is already on antibiotics for her osteo. Covid-19 PCR was negative on 04/21/2020. --ERVIN on CKD Likely secondary to Lasix Hold Lasix today Follow-up urine lites Monitor BUNs/creatinine Avoid nephrotoxic medications Nephrology consult --Mild elevation of liver function tests Right upper quadrant ultrasound was ordered and was negative for any acute cholecystitis but did show biliary sludge and stones Right upper quad ultrasound shows cirrhotic morphology of the liver could be from chronic diastolic CHF on top of Terry Will order GGT. --Diastolic CHF BNP: 3248 on 04/26/2020 EF 50-55% on echo done this admission Continue with diuretics as tolerated Keep negative balance, strict in and outs Monitor electrolytes Continue with BiPAP --A. fib Rate controlled On Xarelto --Osteomyelitis of the third toe of the right foot ESR: 61, CRP: 5.83 on 04/26/2020 Continue with antibiotics as tolerated Would monitor CPK given the patient is on daptomycin There is no eosinophilia appreciated on the blood work which rules out DRESS syndrome --Diabetes type 2 Continue with ICU hyperglycemia protocol --Morbid obesity with high likelihood of JACKIE/OHS Continue with BiPAP nightly and PRN shortness of breath Patient will benefit from BiPAP on being discharged from the hospital --Hypothyroidism Continue with levothyroxine TSH 1.49, within normal limits --Dyslipidemia On atorvastatin --Prophylaxis VTE: Xarelto Lines: Peripheral Diet: Can resume diet once the patient is more alert Plan: In/out: -705, urine output 925 ABG from today 7.28/79/82 this was on BiPAP /8 Chest x-ray from today still shows vascular congestion with lower lobe pulmonary edema versus infiltrates. Patient looks more alert today compared to before. She still is acidotic on her ABG but it is still better than 7.2 when I saw her yesterday in the morning. I would continue with continuous BiPAP for the time being. Patient has mild increase in LFTs compared to before. Right upper quadrant ultrasound was ordered which shows biliary sludge and stones but no signs of acute cholecystitis. Follow-up GGT Right upper quadrant ultrasound does show cirrhotic morphology of the liver could be secondary to dialysis systolic CHF which is chronic on top of Terry because of obesity Hold Lasix for the ERVIN. Follow-up urine lites. Nephrology consult Patient is getting hypoglycemic episodes most likely because she is not eating while on continuous BiPAP, will let pharmacy know to make changes to her insulin regimen. Potassium today is 5.1 patient used to be on 40 mg of p.o. potassium on a daily basis. We will hold it for the time being repeat BMP at 3 PM I have personally spent 37 minutes of critical care time in the direct management of this patient. This is a life/limb threatening event. This includes time spent evaluating patient, direct bedside care, chart review, placing orders, interpretation of diagnostic studies, discussion with consultants, patient, and family members, as well as other required patient management activities. This time is exclusive of all separately billable procedures, and teaching time and separate from and in addition to any other critical care service time. Please note the above document was generated using voice recognition software. It may contain grammatical, syntax or spelling errors. Admission and Anticipated Discharge Date Admission Date: April 21, 2020 Subjective Patient seen and examined at bedside. No acute distress, no adverse events overnight. Patient was compliant with BiPAP overnight. She has been saturating well and she is having good tidal volume on the BiPAP currently 20/8 at 40% Patient is way more alert compared to when I saw her yesterday in the morning. Denies any pain anywhere. Review of Systems Review of Systems: All systems reviewed & are unremarkable except as noted in HPI & below Physical Exam Physical Exam: Constitutional: No acute distress HEENT: EOMI, PERRLA, thick neck Respiratory system: Decreased air entry bilaterally, mild crackles bilateral lower lobes, no wheeze, no rhonchi CVS: S1-S2 positive, no murmurs or gallops, distant heart sounds Abdomen: Soft, nontender, nondistended, positive bowel sounds x4, obese Extremities: +2 pulses bilaterally radialis/ dorsalis pedis, no cyanosis, positive pitting edema bilateral lower extremity, compression stockings bilateral lower extremity Neuro: Awake alert oriented to self, answering simple questions moving all extremities Psych: Normal mood and affect G/U: Positive Marino Skin: no rashes, warm and dry Lymphatic: no cervical or axillary lymphadenopathy Results & Data Results & Data ([facility]) Vital Signs (Past 12 Hours) Vital Signs Pulse Resp BP Pulse Ox 04/27/20 07:46 75 20 95 04/27/20 06:00 72 20 93 04/27/20 05:55 74 23 140/65 94 04/27/20 05:22 80 26 H 140/65 96 04/27/20 05:00 73 26 H 97 04/27/20 04:58 74 20 96 04/27/20 04:21 75 23 121/81 95 04/27/20 04:00 73 20 96 04/27/20 03:00 75 24 97 04/27/20 02:21 72 25 H 151/76 H 97 04/27/20 02:01 74 24 96 04/27/20 01:55 72 22 95 04/27/20 01:21 72 24 144/61 H 94 04/27/20 01:01 72 21 95 04/27/20 00:21 73 22 130/89 95 04/27/20 00:01 73 24 94 04/26/20 23:22 74 23 157/128 H 95 04/26/20 23:10 84 23 94 04/26/20 23:00 73 28 H 95 04/26/20 22:21 74 20 180/140 H 96 04/26/20 22:00 79 28 H 95 04/26/20 21:21 78 21 163/74 H 94 04/26/20 21:00 82 25 H 92 04/27/20 04:39 04/27/20 04:39 Coding Level of Care Code Critical Care 1st 30-74 mins Diagnoses Hypercapnic respiratory failure J96.92 Time Spent (min) 37
[2020-04-27] MEDS ORDERED: SODIUM CHLORIDE 0.9% 500 ML IV SCH (10:00)
[2020-04-27] MEDS ORDERED: PHARMACY GLYCEMIC MGMT CONSULT PRN (10:08)
--- NOTE | 2020-04-27 10:59 | Pharmacy Report ---
Glycemic Control Consultation - Date of Service April 27, 2020 - Scope Scope: Glycemic Pharmacist consulted for glycemic control and to write orders per [facility] inpatient glycemic control protocol. - Objective Weight: 149.4 kg Accuchecks BSG (last 24hrs): 04/26/20 04/26/20 04/26/20 11:33 15:10 21:14 Glucose POC Glucose 176 H 141 H 105 H 04/27/20 04/27/20 04:39 08:40 Glucose 55 L POC Glucose 34 L* Laboratory Data (last 24hrs): 04/27/20 04:39 Potassium 5.1 Carbon Dioxide 37 H Anion Gap 3.0 Creatinine 1.91 H Est Cr Clr Drug Dosing 35.7 HbA1c: Hemoglobin A1c 7.2 % (4.5-5.6) H 04/22/20 01:37 - Recent Pertinent Medications Outpatient Anti-diabetic Regimen: * Humulin 70/30- 82 units QAM, 85 units QPM, insulin lispro 10 units with lunch, metformin 1000 mg QAM, 500 mg with dinner * A1c = 7.2 % 04/22/20 The patient is currently ordered: * 70/30: 82 units with breakfast; 85 units with dinner * Correctional Insulin: Goal range 100 -150 mg/dL, 1 unit per 25 mg/dL above goal Risk Factors for Insulin Resistance: * Infection: Dapto/aztreonam * IVF: NS @50 ml/hr * Recent Surgery * Diet: T2DM but on hold for continuous bipap - Assessment & Plan Assessment & Plan: ASSESSMENT: * Ms. Arellano has been continued on her home 70/30 since admission, although administration has been held several times by providers/NPO status. Averaged ~90 units of insulin the past several days. * Hypoglycemic this morning, patient has diet ordered but unable to eat d/t change in status and BiPAP usage at this time, she did receive her PM dose of 70/30. * Uncertain if BiPAP will be able to be transitioned off tonight/restart diet PLAN FOR INPATIENT GLYCEMIC CONTROL: * Will adjust regimen to lantus/novolog basal/bolus in an effort to prevent hypoglycemia with changing status * Will adjust novolog parameters based on stress of 2 of previous 90 units, this is slightly looser than weight based stress of 2 parameters. Loosen goal range. * Will begin lantus conservatively given uncertain PO status, with a minimum reduction of ~50% from previous days and an attempt to split bolus and basal 50:50 * Holding outpatient oral diabetes medications * Basal insulin * Lantus 15-25 units SQ with dinner * Bolus insulin * NovoLog per scale ACHS or Q6hrs while NPO * Goal Range: Low 120 mg/dL - High 160 mg/dL * Correction Factor: 20 mg/dL/unit * Nutritional / Prandial insulin per carb ratio of 1 unit per 6 grams CHO consumed * Please note that the plan above was derived based on current level of insulin resistance and hospital stress. These recommendations are appropriate for inpatient admission only. Plan of care upon discharge will need to be reassessed to avoid potential outpatient hypo/hyperglycemia. Thank you.
[2020-04-27] MEDS: CHOLECALCIFEROL 1,000 UNITS 25 MCG TAB PO SCH (11:15)
[2020-04-27] MEDS: MAGNESIUM OXIDE 400 MG TAB PO SCH (11:15)
--- NOTE | 2020-04-27 11:43 | Nephrology Consultation ---
Date of Consultation April 27, 2020 Assessment & Plan (1) Acute respiratory distress: Remains on BiPAP. Aggressive attempts to avoid intubation. Imaging included chest x-rays reviewed. I agree with plan to continue aggressive diuresis. (2) CHF (congestive heart failure): Transthoracic echocardiogram reviewed. Preserved left ventricular systolic function. Predominately evidence of right heart failure. History of paroxysmal atrial fibrillation noted. Patient was in sinus rhythm at 60 beats per minute on my assessment. (3) CKD (chronic kidney disease) stage 3, GFR 30-59 ml/min: Baseline creatinine approximately 1.1 mgdL. CKD Attributed to diabetic nephropathy. Medications are currently appropriately dosed for kidney function. (4) ERVIN (acute kidney injury): Oliguric. UA notable for hyaline casts. Poor oral intake. Overall nutrition has been poor. However, the patient is hypervolemic and suffering from pulmonary edema and evidence of heart failure. Her overall condition is guarded. I would suggest that we continue aggressive diuresis. Bumex 2 milligrams IV x1 dose has been ordered. Following this will start Bumex drip at 1 milligram/hour. Will re-evaluate with a repeat metabolic profile this afternoon. Thankfully there is no current indication to start renal replacement therapy. Electrolytes have been acceptable. 35 minutes of critical care time provided this morning. History of Present Illness Reason for Consultation: ERVIN Requesting Physician: Ba Walsh Attending Physician: Ba Walsh History of Present Illness Janelle Arellano is a 74-year-old female with morbid obesity, COPD, diabetes mellitus, history of congestive heart failure with preserved left ventricular ejection fraction, hypothyroidism, chronic venous stasis, neuropathy with foot ulcer, history of endometrial cancer, and atrial fibrillation. Baseline creatinine had been approximately 1.1 milligram /deciliter as recently as April 23. Over the past couple days creatinine has risen to 1.9 milligram/deciliter. Within the past 24 hours patient has developed oliguria. Urine output has been approximately 50 milliliters. There was admitted to the hospital with acute hypercapnic respiratory failure. She has been maintained on BiPAP since April 24. Transthoracic cardiac echocardiogram was updated during her hospitalization demonstrating normal LV size and function with a dilated IVC. Patient is in a net positive fluid balance for the hospitalization. She was able to diurese approximately 48 hours ago by a 0.5 liter. Unfortunately there has not been a significant improvement overall in her condition. I spoke to the growth hacker in detail this morning. Gabby significantly fatigued we are trying to avoid intubation. urinalysis demonstrates 2+ protein and 3+ blood with greater than 30 RBCs on microscopy. There were no white blood cells. Hyaline casts were appreciated. Is noted that the patient did develop gross hematuria following a traumatic Marino catheter insertion during the hospitalization. The patient was seen in the ICU this morning. I discussed her current status with the bedside nurse. I reviewed the plan of care with the growth hacker. Unfortunately, the patient was not able to participate significantly in conversation due to her current mental status work of breathing. Allergies Allergy/AdvReac Type Severity Reaction Status Date / Time Penicillins Allergy Intermediate HIVES Verified 04/21/20 19:35 mineral oil Allergy Unknown Verified 04/21/20 19:35 metronidazole AdvReac Unknown NAUSEA Verified 04/21/20 19:35 ceresin [From Eucerin] AdvReac Redness of Verified 04/21/20 19:35 Skin emollient combination no.33 AdvReac Redness of Verified 04/21/20 19:35 [From Eucerin] Skin isopropyl myristate AdvReac Redness of Verified 04/21/20 19:35 [From Eucerin] Skin lanolin alcohols AdvReac Redness of Verified 04/21/20 19:35 [From Eucerin] Skin mineral oil [From Eucerin] AdvReac Redness of Verified 04/21/20 19:35 Skin soap [From Eucerin] AdvReac Redness of Verified 04/21/20 19:35 Skin water [From Eucerin] AdvReac Redness of Verified 04/21/20 19:35 Skin Home Medications Home Medications Medication Instructions Recorded Confirmed Type acetaminophen [Tylenol Extra 500 mg PO Q4H PRN 09/18/18 04/21/20 History Strength] cholecalciferol (vitamin D3) 2,000 units PO DAILY@1200 09/18/18 04/21/20 History [Vitamin D3] Oxygen Home #1 ea 04/03/19 03/22/20 History albuterol sulfate 2.5 mg INHALATION Q4 PRN ml 04/24/19 04/21/20 History albuterol sulfate 90 mcg/actuation 1 - 2 puff INHALATION Q4H PRN #18 09/01/19 04/21/20 Rx aerosol inhaler gm magnesium oxide 800 mg PO DAILY@1200 tab 10/27/19 04/21/20 History pen needle, diabetic 29 gauge x #200 ea 12/23/19 03/22/20 Rx 1/2" allopurinol 100 mg tablet 100 mg PO DAILY@1800 #90 tab 02/26/20 04/21/20 Rx atorvastatin 40 mg tablet 40 mg PO DAILY #90 tab 02/26/20 04/21/20 Rx bumetanide 1 mg tablet See Rx Instructions PO BID tab 02/26/20 04/21/20 History diltiazem HCl 240 mg 240 mg PO QAM #90 cap 02/26/20 04/21/20 Rx capsule,extended release 24 hr insulin lispro 100 unit/mL 10 units SUBCUT DAILY@1200 ml 02/26/20 04/21/20 History subcutaneous pen levothyroxine 50 mcg tablet 50 mcg PO QAM #90 tab 02/26/20 04/21/20 Rx metformin 500 mg tablet See Rx Instructions .ROUTE 02/26/20 04/21/20 Rx .COMPLEX #270 tablet metoprolol succinate 100 mg 150 mg PO QAM #90 tab 02/26/20 04/21/20 Rx tablet,extended release 24 hr potassium chloride 20 mEq 40 meq PO QAM #180 tab 02/26/20 04/21/20 Rx tablet,extended release(part/cryst) rivaroxaban 15 mg tablet 15 mg PO QPM #90 tab 02/26/20 04/21/20 Rx lidocaine 1 patch TOP DAILY PRN #15 ea 03/08/20 04/21/20 Rx blood sugar diagnostic See Rx Instructions .ROUTE 04/07/20 04/13/20 Rx .COMPLEX #100 strip insulin NPH-regular 70-30 U-100 82 unit SUBCUT QAM #160 ml 04/07/20 04/21/20 Rx insulin 100 unit/mL subcutaneous pen insulin NPH and regular human 85 unit SUBCUT QPM 04/21/20 04/21/20 History [Humulin 70/30 U-100 KwikPen] nystatin [Nystop] 1 applic TOPICAL TID 04/21/20 04/21/20 History Patient History Medical History Acquired claw toe of left foot Acquired claw toe of right foot Atrial flutter Basal cell carcinoma, face Bilateral swelling of feet Callus DM (diabetes mellitus), type 2 Hypertension Hypertension Pleural effusion Sciatica Surgical History Hx of salpingo-oophorectomy, bilateral S/P hysterectomy S/P Mohs surgery for basal cell carcinoma S/P thoracentesis Family History Father Coronary heart disease Myocardial infarction Mother Alzheimer disease Denies family history of Ovarian cancer Prostate cancer Breast cancer Colorectal cancer Social History Smoking Status: Never smoker Second Hand Exposure: No; Hx Alcohol Use: No Hx Substance Use: No Preferred Language: Citizen Of [place] Communication Ability: Effective Visual Impairment: Limited Beauty Operator Required: No Beliefs That Will Affect Care: None marital status: Current Living Situation: Spouse current occupational status: retired How many Children do You have: 0 Feels Safe at Home: Yes Dental Care, Regularly: Yes Physical Activity Frequency: 1-2 Times per Week Sunscreen Use: No Review of Systems Review of Systems: Unobtainable due to cognitive status limited due to mental status Physical Exam Constitutional: + ill appearing and + morbidly obese Eyes: + anicteric sclerae; no corneal abnormality ENMT: Nose: no external nose abnormality Mouth: no oral mucosal abnormality BIPAP mask Neck: normal visual inspection and + thick neck Respiratory: + labored breathing Auscultation: + diminished lung sounds and + rales Cardiovascular: Rate/Rhythm: regular rate Heart Sounds: normal S1 and normal S2 Extremities: + edema Gastrointestinal (Abdomen): Percussion/Palpation: abdomen soft; abdomen nontender Musculoskeletal: Extremities: no cyanosis and no clubbing Skin: no rashes, warm and dry Neurologic: Motor/Sensory: no tremor and no asterixis Psychiatric: Orientation: alert Eye Contact: good eye contact Results & Data ([facility]) Vital Signs (Past 12 Hours) Vital Signs Temp Pulse Resp BP Pulse Ox 04/27/20 10:00 34.9 C L 60 22 108/59 L 91 04/27/20 09:31 34.9 C L 70 25 H 94 04/27/20 09:20 35.0 C L 71 28 H 93 08/12/20 09:00 70 22 150/69 H 93 04/27/20 08:01 88 24 94 04/27/20 07:46 75 20 95 04/27/20 07:22 76 24 143/67 H 96 04/27/20 06:00 72 20 93 04/27/20 05:55 74 23 140/65 94 04/27/20 05:22 80 26 H 140/65 96 04/27/20 05:00 73 26 H 97 04/27/20 04:58 74 20 96 04/27/20 04:21 75 23 121/81 95 04/27/20 04:00 73 20 96 04/27/20 03:00 75 24 97 04/27/20 02:21 72 25 H 151/76 H 97 04/27/20 02:01 74 24 96 04/27/20 01:55 72 22 95 04/27/20 01:21 72 24 144/61 H 94 04/27/20 01:01 72 21 95 04/27/20 00:21 73 22 130/89 95 04/27/20 00:01 73 24 94 Laboratory Results Laboratory Results - last 24 hr 04/26/20 04/26/20 04/26/20 08:56 11:53 15:10 WBC RBC Hgb Hct MCV MCH MCHC RDW Std Deviation RDW Coeff of Davina Plt Count MPV Immature Gran % (Auto) Neut % (Auto) Lymph % (Auto) Payne % (Auto) Eos % (Auto) Baso % (Auto) Neut # (Auto) Lymph # (Auto) Payne # (Auto) Eos # (Auto) Baso # (Auto) Immature Gran # (Auto) PT INR Sample Site POC pH POC pCO2 POC pO2 POC HCO3 POC Total CO2 POC Base Excess ABG pH Cancelled ABG pCO2 Cancelled ABG pO2 Cancelled ABG HCO3 Cancelled POC ABG O2 Sat ABG O2 Saturation Cancelled ABG Base Excess Cancelled Shreyas Test Cancelled Barometric Pressure Cancelled Oxygen Given Cancelled O2 Delivery Device POC O2 Rate POC FiO2 IPAP Sodium Potassium Chloride Carbon Dioxide Anion Gap BUN Creatinine Est Cr Clr Drug Dosing Est GFR ( Amer) Est GFR (Non-Af Amer) BUN/Creatinine Ratio Glucose POC Glucose 141 H Calcium Phosphorus Magnesium Total Bilirubin GGT AST ALT Alkaline Phosphatase Total Creatine Kinase Total Protein Albumin Globulin Albumin/Globulin Ratio Procalcitonin TSH 1.490 04/26/20 04/26/20 04/27/20 16:44 21:14 04:39 WBC 9.12 RBC 4.16 L Hgb 11.8 L Hct 39.4 MCV 94.7 MCH 28.4 MCHC 29.9 L RDW Std Deviation 55.4 H RDW Coeff of Davina 16.0 H Plt Count 211 MPV 9.4 Immature Gran % (Auto) 0.7 Neut % (Auto) 75.1 Lymph % (Auto) 6.5 Payne % (Auto) 12.6 Eos % (Auto) 4.7 Baso % (Auto) 0.4 Neut # (Auto) 6.85 H Lymph # (Auto) 0.59 L Payne # (Auto) 1.15 H Eos # (Auto) 0.43 Baso # (Auto) 0.04 Immature Gran # (Auto) 0.06 H PT INR Sample Site L Brachial POC pH 7.27 L POC pCO2 86 H POC pO2 68 L POC HCO3 39 H POC Total CO2 > 40 H* POC Base Excess 12.0 H ABG pH ABG pCO2 ABG pO2 ABG HCO3 POC ABG O2 Sat 89.0 L ABG O2 Saturation ABG Base Excess Shreyas Test NA Barometric Pressure Oxygen Given O2 Delivery Device BIPAP POC O2 Rate POC FiO2 40 IPAP 16 Sodium Potassium Chloride Carbon Dioxide Anion Gap BUN Creatinine Est Cr Clr Drug Dosing Est GFR ( Amer) Est GFR (Non-Af Amer) BUN/Creatinine Ratio Glucose POC Glucose 105 H Calcium Phosphorus Magnesium Total Bilirubin GGT AST ALT Alkaline Phosphatase Total Creatine Kinase Total Protein Albumin Globulin Albumin/Globulin Ratio Procalcitonin TSH 04/27/20 04/27/20 04/27/20 04:39 04:39 05:09 WBC RBC Hgb Hct MCV MCH MCHC RDW Std Deviation RDW Coeff of Davina Plt Count MPV Immature Gran % (Auto) Neut % (Auto) Lymph % (Auto) Payne % (Auto) Eos % (Auto) Baso % (Auto) Neut # (Auto) Lymph # (Auto) Payne # (Auto) Eos # (Auto) Baso # (Auto) Immature Gran # (Auto) PT 14.0 H INR 1.3 H Sample Site R Radial POC pH 7.28 L POC pCO2 80 H POC pO2 82 POC HCO3 38 H POC Total CO2 > 40 H* POC Base Excess 11.0 H ABG pH ABG pCO2 ABG pO2 ABG HCO3 POC ABG O2 Sat 94.0 ABG O2 Saturation ABG Base Excess Shreyas Test Pass Barometric Pressure Oxygen Given O2 Delivery Device BIPAP POC O2 Rate 24 POC FiO2 40 IPAP 18 Sodium 135 L Potassium 5.1 Chloride 95 L Carbon Dioxide 37 H Anion Gap 3.0 BUN 65 H Creatinine 1.91 H Est Cr Clr Drug Dosing 35.7 Est GFR ( Amer) 29.2 Est GFR (Non-Af Amer) 25.2 BUN/Creatinine Ratio 34.2 H Glucose 55 L POC Glucose Calcium 8.2 L Phosphorus 5.4 H Magnesium 2.5 H Total Bilirubin 0.6 GGT AST 88 H ALT 88 H Alkaline Phosphatase 160 H Total Creatine Kinase 39 Total Protein 6.3 L Albumin 2.4 L Globulin 3.9 Albumin/Globulin Ratio 0.6 L Procalcitonin TSH 04/27/20 04/27/20 04/27/20 08:40 09:16 09:16 WBC RBC Hgb Hct MCV MCH MCHC RDW Std Deviation RDW Coeff of Davina Plt Count MPV Immature Gran % (Auto) Neut % (Auto) Lymph % (Auto) Payne % (Auto) Eos % (Auto) Baso % (Auto) Neut # (Auto) Lymph # (Auto) Payne # (Auto) Eos # (Auto) Baso # (Auto) Immature Gran # (Auto) PT INR Sample Site POC pH POC pCO2 POC pO2 POC HCO3 POC Total CO2 POC Base Excess ABG pH ABG pCO2 ABG pO2 ABG HCO3 POC ABG O2 Sat ABG O2 Saturation ABG Base Excess Shreyas Test Barometric Pressure Oxygen Given O2 Delivery Device POC O2 Rate POC FiO2 IPAP Sodium Potassium Chloride Carbon Dioxide Anion Gap BUN Creatinine Est Cr Clr Drug Dosing Est GFR ( Amer) Est GFR (Non-Af Amer) BUN/Creatinine Ratio Glucose POC Glucose 34 L* Calcium Phosphorus Magnesium Total Bilirubin GGT Pending AST ALT Alkaline Phosphatase Total Creatine Kinase Total Protein Albumin Globulin Albumin/Globulin Ratio Procalcitonin 0.18 TSH PG Care Time/CCT Total # of Minutes Spent Total Time Spent with Patient: Total time spent is greater than 50% in coordination of care (as documented) at patient's floor/unit and/or counseling patient: Coding Level of Care Code 03142 Inpt Consult Level 5 Diagnoses Acute respiratory distress R06.03 CHF (congestive heart failure) I50.9 Heart failure chronicity: chronic Heart failure type: unspecified CKD (chronic kidney disease) stage 3, GFR 30-59 ml/min N18.3 ERVIN (acute kidney injury) N17.9 (1) CHF (congestive heart failure) Heart failure chronicity: chronic Heart failure type: unspecified Qualified Code(s): I50.9 - Heart failure, unspecified
[2020-04-27] MEDS: DAPTOmycin 500 MG in SYRINGE 0 ML IV SCH (12:16)
[2020-04-27] MEDS: BUMETANIDE 10 MG in DEXTROSE 5% 10 ML IV SCH ×2 (12:16→17:29)
[2020-04-27 13:31] LABS: Appearance Urine Turbid (Clear); Bacteria Urine Automated Negative (Negative); Blood Urine 3+ (Negative); Color Urine Dark Yellow; Epithelial Cell Urine Auto >30 /lpf (0-5); Glucose Urine UA Negative (Negative); Ketones Urine Trace (Negative); Leukocyte Esterase Urine 1+ (Negative); Nitrite Urine Negative (Negative); Protein Urine 1+ (Negative); RBC Urine Automated >30 /hpf (0-4); Urobilinogen Urine Negative (Negative)
[2020-04-27 13:34] LABS: Bilirubin Urine Negative (Negative); Ictotest Urine Negative (Negative)
[2020-04-27 13:40] LABS: iSTAT Sample Type Venous; iSTAT Venous Carbon Dioxide 40 mmol/L (24-31)
[2020-04-27 13:49] LABS: Cast Urine Automated >30 /lpf (0-5)
[2020-04-27 13:51] LABS: Urine Chloride < 10 mmol/L; Urine Potassium 37.2 mmol/L; Urine Sodium 7 mmol/L
[2020-04-27 15:47] LABS: BUN Creatinine Ratio 32.2 (10-20); Calcium 8.2 mg/dl (8.5-10.1); Creatinine Clr Calc Pharmacy 31.8 ml/min; Est GFR (Non-African American) 21.6; Phosphorus 5.4 mg/dl (2.5-4.9)
[2020-04-27] MEDS ORDERED: INSULIN GLARGINE SOLOSTAR 100 UNITS/ML 3 ML PEN SC SCH (16:30)
[2020-04-27] MEDS: allopurinoL 100 MG TAB PO SCH (17:22)
[2020-04-27 17:24] LABS: Magnesium 2.9 mg/dl (1.8-2.4); Potassium 5.7 mmol/L (3.5-5.1)
[2020-04-27] MEDS ORDERED: PATIROMER CALCIUM SORBITEX 8.4 GM PACK PO ONE ×2 (18:38→19:00)
[2020-04-27] MEDS ORDERED: CHLOROTHIAZIDE SODIUM 500 MG in DEXTROSE 5% 50 ML IV ONE (19:00)
[2020-04-27] MEDS: RIVAROXABAN 15 MG TAB PO SCH (22:41)
--- NOTE | 2020-04-27 23:38 | Hospitalist Progress Note ---
Date of Service April 27, 2020 Assessment & Plan (1) Acute respiratory distress: Patient continues to require BIPAP. Now patient is not making urine. Will consult nephrology Patient remains in ICU Patient continues to have acute respiratory Hypercapnea. (2) Osteomyelitis of third toe of right foot: Diabetic foot ulcer/osteomyelitis- Place on vancomycin IV and aztreonam IV. Wound care consult May need ortho c/s pending wound care assessment Initial blood cx neg, repeat pending given change in status WBC not technically elevated, but higher than on admission (3) CHF (congestive heart failure): Acute on chronic diastolic CHF on admission CHF/atrial fibrillation/hypertension- Chest x-ray on admission suggestive of acute CHF. Holding Bumex p.o. Continue diltiazem extended release 240 mg every morning, mag oxide 800 mg p.o. daily, potassium chloride 40 mEq p.o. every morning. Continue metoprolol succinate extended release 150 mg every morning. Continue Xarelto 15 mg p.o. HS COVID neg on admission Patient not making much urine. will monitor. ECHO with EF 50-55% and no changes noted from last ECHO on 11/10/19 (4) Chronic venous insufficiency: Will improve with diuretics as noted for CHF above (5) Venous stasis dermatitis of both lower extremities: See above (6) Diabetic peripheral neuropathy associated with type 2 diabetes mellitus: Not on any direct treatment for peripheral neuropathy. Hold metformin. Hold insulin lispro. Continue Humulin 70/30 82 units subcu in the a.m. and 85 units subcu in the p.m. with holds SSI A1c 7.2 (7) PAD (peripheral artery disease): Continue Xarelto (8) Hyperlipidemia: Continue atorvastatin 40 mg daily (9) CKD (chronic kidney disease) stage 3, GFR 30-59 ml/min: Patient appears to be having acute kidney failure. Creatinine 1.13 on admission, with range 1.04-1.52 GFR is 47.5 with range 33.2-52.5. Follow serially on laboratories Patient may require dialysis as she is not making urine. will continue to monitor. (10) COPD (chronic obstructive pulmonary disease): Duo nebs every 2 hours as needed (11) Atrial fibrillation: Continue Xarelto 15 mg p.o. daily. See above (12) Hypothyroidism: Continue levothyroxine 50 mcg daily (13) Depression with anxiety: On no direct treatment at this time, however, resumption of some form of treatment may need to be considered (14) Ear pain, right: Improving s/p debrox trial (15) Hematuria: Noted in montesinos after some thrashing with earlier breathing issues and likely traumatic UA + for blood, leuk est, neg nitrites Pt without urinary complaints VACCINATOR Unlikely that she developed a UTI given above abx Admission and Anticipated Discharge Date Admission Date: April 21, 2020 Subjective Patient continues to require continuos BIPAP. Patient is following commands. Patient appears more awake. Review of Systems Review of Systems: All systems reviewed & are unremarkable except as noted in HPI & below Physical Exam Physical Exam: Constitutional: WD/WN, vitals as above Eyes: normal visual figueroa by confrontation and + anicteric sclerae Neck: normal visual inspection and trachea midline Respiratory: normal respiratory effort, lungs clear to auscultation normal respiratory effort; no respiratory distress Auscultation: tight, decreased breath sounds Cardiovascular: Rate/Rhythm: regular rate and regular rhythm Extremities: + edema (improved) Gastrointestinal (Abdomen): Inspection/Auscultation: abdomen not distended P ercussion/Palpation: abdomen soft; abdomen nontender Musculoskeletal: Head/Neck/Chest: normocephalic and head atraumatic Skin: + erythema (improved) Neurologic: awake; not confused Speech / Cognition: normal speech Psychiatric: A+Ox3, euthymic affect Results & Data Results & Data ([facility]) Vital Signs (Past 12 Hours) Vital Signs Temp Pulse Resp BP Pulse Ox 04/27/20 23:06 36.7 C 86 18 130/63 98 04/27/20 22:43 68 17 98 04/27/20 22:31 36.7 C 86 23 149/60 H 100 04/27/20 20:01 36.4 C L 77 18 131/67 96 04/27/20 19:30 36.3 C L 82 26 H 100/55 L 97 04/27/20 19:20 73 20 93 04/27/20 19:02 36.2 C L 71 25 H 136/63 89 L 04/27/20 18:01 36.1 C L 70 20 128/49 L 94 04/27/20 17:26 36.1 C L 70 26 H 154/71 H 91 04/27/20 16:00 35.9 C L 71 20 157/79 H 93 08/12/20 15:15 70 22 94 04/27/20 15:02 70 04/27/20 15:00 35.8 C L 70 24 137/63 90 04/27/20 14:01 35.5 C L 64 22 103/92 93 04/27/20 14:00 35.5 C L 66 23 95 04/27/20 13:01 35.3 C L 56 L 18 123/51 L 97 04/27/20 12:05 56 L 24 94 04/27/20 12:01 35.1 C L 69 15 136/74 94 PG Care Time/CCT Total # of Minutes Spent Total Time Spent with Patient: Total time spent is greater than 50% in coordination of care (as documented) at patient's floor/unit and/or counseling patient: Coding Level of Care Code 03055 Subseq Hosp Care Lvl 3 Diagnoses Acute respiratory distress R06.03 Osteomyelitis of third toe of right foot M86.9 CHF (congestive heart failure) I50.9 Heart failure chronicity: chronic Heart failure type: unspecified Chronic venous insufficiency I87.2 Venous stasis dermatitis of both lower extremities I87.2 Diabetic peripheral neuropathy associated with type 2 diabetes mellitus E11.42 PAD (peripheral artery disease) I73.9 Hyperlipidemia E78.5 CKD (chronic kidney disease) stage 3, GFR 30-59 ml/min N18.3 COPD (chronic obstructive pulmonary disease) J44.9 Atrial fibrillation I48.91 Hypothyroidism E03.9 Depression with anxiety F41.8 Ear pain, right H92.01 Hematuria R31.9 Time Spent (min) 35 (1) CHF (congestive heart failure) Heart failure chronicity: chronic Heart failure type: unspecified Qualified Code(s): I50.9 - Heart failure, unspecified
[2020-04-28] MEDS ORDERED: INSULIN ASPART 100 UNITS/ML 3 ML PEN SC SCH
[2020-04-28] MEDS: NITROGLYCERIN 2% OINTMENT 30GM TUBE EXT SCH ×4 (02:20→20:02)
[2020-04-28] MEDS: BUMETANIDE 10 MG in DEXTROSE 5% 10 ML IV SCH ×3 (03:38→21:13)
[2020-04-28 04:44] LABS: Hematocrit (blood only) 36.5 % (37-47); Hemoglobin 11.6 g/dL (12.0-16.0); Mean Corpuscular Hemoglobin 28.8 pg (25-34); Mean Corpuscular Hgb Conc 31.8 g/dL (32-36); Mean Corpuscular Volume 90.6 fL (80-100); Mean Platelet Volume 9.2 fL (7.4-10.4); Platelet Count 203 K/uL (130-400); RDW Coefficient of Variation 15.9 % (11.5-14.5); RDW Standard Deviation 52.8 fL (36.4-46.3); Red Blood Count 4.03 M/uL (4.2-5.4); White Blood Count 10.18 K/uL (4.8-10.8)
[2020-04-28 05:07] LABS: Albumin Level 2.3 gm/dl (3.4-5.0); BUN Creatinine Ratio 31.2 (10-20); Bilirubin Direct 0.2 mg/dl (0-0.2); Bilirubin,Total 0.6 mg/dl (0.2-1); Calcium 8.5 mg/dl (8.5-10.1); Creatinine Clr Calc Pharmacy 27.2 ml/min; Est GFR (African American) 20.8; Est GFR (Non-African American) 17.9; Magnesium 2.6 mg/dl (1.8-2.4); Phosphorus 5.7 mg/dl (2.5-4.9); Potassium 4.7 mmol/L (3.5-5.1); Total Protein 6.4 gm/dl (6.4-8.2)
[2020-04-28 05:37] LABS: iSTAT Allen Test Pass; iSTAT Art Bld Gas pCO2 Correct 69 mmHg (35-46); iSTAT Art Bld Gas pH Corrected 7.329 (7.35-7.45); iSTAT Arterial Blood Gas HCO3 37 meg/L (19-24); iSTAT Arterial Blood Gas pCO2 71 mmHg (35-46); iSTAT Arterial Blood Gas pH 7.32 (7.35-7.45); iSTAT Arterial Blood Gas pO2 81 mmHg (80-95); iSTAT Arterial Blood Gas pO2 C 79; iSTAT Carbon Dioxide 39 mmol/L (24-31); iSTAT FiO2 40 %; iSTAT Hematocrit 36 % (37-47); iSTAT Hemoglobin 12.2 g/dl (12.0-16.0); iSTAT Potassium 4.7 mmol/L (3.3-5.0); iSTAT Site R Radial; iSTAT Sodium 130 mmol/L (135-144)
[2020-04-28] MEDS: LEVOTHYROXINE SODIUM 50 MCG TABLET PO SCH (06:13)
[2020-04-28] MEDS: AZTREONAM 2,000 MG in DEXTROSE 5% 100 ML IV SCH ×2 (07:36→13:57)
[2020-04-28] MEDS: NYSTATIN POWDER 15GM BTL EXT SCH ×3 (07:38→20:22)
[2020-04-28] MEDS: MAGNESIUM OXIDE 400 MG TAB PO SCH (07:38)
[2020-04-28] MEDS: CHOLECALCIFEROL 1,000 UNITS 25 MCG TAB PO SCH (07:39)
[2020-04-28] MEDS: dilTIAZem HCL 240 MG CAPCR PO SCH (07:39)
[2020-04-28] MEDS: METOPROLOL SUCC 50MG EXT REL TAB PO SCH (07:39)
--- NOTE | 2020-04-28 07:52 | Ultrasound Report ---
ULTRASOUND KIDNEYS AND BLADDER CLINICAL HISTORY: Acute renal insufficiency. COMPARISON STUDY: Abdominal CT dated 09/18/2018. TECHNIQUE: Real-time, grayscale, and color flow sonography of the kidneys and bladder is performed. I mages are reviewed in the transverse and longitudinal planes. FINDINGS: Kidneys: The kidneys demonstrate cortical atrophy and are normal in echotexture. The right kidney esa sures 10.3 x 5.8 x 5.6 cm and the left kidney measures 9.3 x 5.1 x 7.4 cm. There is no hydronephrosi s. No shadowing renal calculi are identified. There is no sonographic evidence of contour deforming r enal mass lesion. No perinephric fluid is identified. Bladder: The bladder is decompressed and cannot be evaluated. Bilateral ureteral jets were seen. Upper abdomen: Survey images of the liver show evidence of hepatomegaly and hepatic steatosis. There is a small volume of pelvic ascites. IMPRESSION: 1. The kidneys demonstrate cortical atrophy and are without hydronephrosis. 2. The bladder was decompressed and could not be assessed. 3. Small volume pelvic ascites. ACT 112: Negative or not required by law. Electronically signed by: Ryan Montero M.D. 04/28/2020 7:51 AM
[2020-04-28] MEDS: INSULIN ASPART 100 UNITS/ML 3 ML PEN SC SCH ×4 (07:58→20:26)
--- NOTE | 2020-04-28 08:44 | XRay Report ---
XR chest 1V portable CLINICAL HISTORY: f/u dyspnea COMPARISON STUDY: 04/27/2020 FINDINGS: Mild stable cardiomegaly. Prominent pulmonary vasculature considered unchanged. Small bibasilar parenchymal infiltrative change also unchanged. IMPRESSION: No change from the prior study. Unchanged findings of mild congestive heart failure with superimposed bibasilar parenchymal infiltrative change. ACT 112: Negative or not required by law. The above report was generated using voice recognition software. It may contain grammatical, syntax or spelling errors. Electronically signed by: Richie Bowen M.D. 04/28/2020 8:43 AM
[2020-04-28] MEDS ORDERED: INSULIN GLARGINE SOLOSTAR 100 UNITS/ML 3 ML PEN SC SCH (09:00)
--- NOTE | 2020-04-28 09:09 | Critical Care Progress Note ---
Date of Service April 28, 2020 Assessment & Plan (1) Hypercapnic respiratory failure: Chest x-ray 04/25/2020 personally reviewed: Increased pulmonary vascular markings, blunted bilateral costophrenic and cardiophrenic angles, increased cardiac silhouette. Goes more along with pulmonary edema --Acute on chronic hypercapnic respiratory failure Likely secondary to combination of JACKIE/OHS Patient is tolerating BiPAP right now Continue with the BiPAP for the time being and keep a very close eye on her If there is any clinical deterioration, intubation would be needed. Avoid any sedating medication I highly doubt that the patient has pneumonia. Irrespective she is already on antibiotics for her osteo. Covid-19 PCR was negative on 04/21/2020. --ERVIN on CKD Patient has been started on bumetanide drip as per nephrology recommendation Monitor BUNs/creatinine Avoid nephrotoxic medications Nephrology on board --Mild elevation of liver function tests Right upper quadrant ultrasound was ordered and was negative for any acute cholecystitis but did show biliary sludge and stones Right upper quad ultrasound shows cirrhotic morphology of the liver (no laboratory finding suggesting cirrhosis) could be from chronic diastolic CHF on top of Terry GGT is mildly elevated at 122. --Diastolic CHF BNP: 3248 on 04/26/2020 EF 50-55% on echo done this admission Continue with diuretics as tolerated Keep negative balance, strict in and outs Monitor electrolytes Continue with BiPAP --A. fib Rate controlled On Xarelto --Osteomyelitis of the third toe of the right foot ESR: 61, CRP: 5.83 on 04/26/2020 Continue with antibiotics as tolerated Would monitor CPK given the patient is on daptomycin There is no eosinophilia appreciated on the blood work which rules out DRESS syndrome --Diabetes type 2 Continue with ICU hyperglycemia protocol --Morbid obesity with high likelihood of JACKIE/OHS Continue with BiPAP nightly and PRN shortness of breath Patient will benefit from BiPAP on being discharged from the hospital --Hypothyroidism Continue with levothyroxine TSH 1.49, within normal limits --Dyslipidemia On atorvastatin --Hyponatremia Hypervolemic Plus patient being on diuretics Monitor --Prophylaxis VTE: Xarelto Lines: Peripheral Diet: Cardiorenal Plan: In/out: Positive 479, urine output 905 ABG from today 7. 32/71/81 this was on BiPAP / Chest x-ray no significant change compared to before. Patient is almost back to her baseline when it comes to her mental status. Her respiratory status is also stable. Her main issue right now is her kidney function which has been deteriorating. Her urine output did improve to some extent from bumetanide drip. LFTs and GGT are mildly elevated I think this is because of combination of chronic liver congestion from diastolic CHF on top of Terry. I would just monitor given that the right upper quadrant ultrasound did not show any acute signs of cholecystitis and patient has no right upper quadrant pain. As per the yesterday patient had multiple talks with Dr. Brambila who is her kidney doctor and she had multiple times said that she would not like to be on dialysis. She is not an absolute need of renal replacement therapy right now but if her kidney function does not take a turn towards good side there is a possibility we might need it in the near future. I have personally spent 35 minutes of critical care time in the direct management of this patient. This is a life/limb threatening event. This includes time spent evaluating patient, direct bedside care, chart review, placing orders, interpretation of diagnostic studies, discussion with consultants, patient, and family members, as well as other required patient management activities. This time is exclusive of all separately billable procedures, and teaching time and separate from and in addition to any other critical care service time. Please note the above document was generated using voice recognition software. It may contain grammatical, syntax or spelling errors. Admission and Anticipated Discharge Date Admission Date: April 21, 2020 Subjective Patient seen and examined at bedside. No acute distress, no adverse events overnight. Patient was on nasal cannula at the time of examination about to have breakfast. She was reluctant that she is not going to have breakfast until her is with her. She has been on bumetanide drip. Her urine output has improved.. Creatinine is worsening. Patient denies any shortness of breath, denies any chest pain, no belly pain, no nausea or vomiting. She is is using BiPAP every night and as and when needed. Review of Systems Review of Systems: All systems reviewed & are unremarkable except as noted in HPI & below Physical Exam Physical Exam: Constitutional: No acute distress HEENT: EOMI, PERRLA, thick neck Respiratory system: Decreased air entry bilaterally, mild crackles bilateral lower lobes, no wheeze, no rhonchi CVS: S1-S2 positive, no murmurs or gallops, distant heart sounds Abdomen: Soft, nontender, nondistended, positive bowel sounds x4, obese Extremities: +2 pulses bilaterally radialis/ dorsalis pedis, no cyanosis, positive pitting edema bilateral lower extremity, compression stockings bilateral lower extremity Neuro: Awake alert oriented to self, answering simple questions moving all e xtremities Psych: Normal mood and affect G/U: Positive Marino Skin: no rashes, warm and dry Lymphatic: no cervical or axillary lymphadenopathy Results & Data Results & Data ([facility]) Vital Signs (Past 12 Hours) Vital Signs Temp Pulse Resp BP Pulse Ox 04/28/20 08:01 36.5 C 84 24 123/70 90 04/28/20 07:38 86 24 98 04/28/20 07:02 36.5 C 85 20 133/50 L 91 04/28/20 06:01 36.5 C 85 19 142/56 H 97 04/28/20 05:01 36.5 C 85 22 146/61 H 94 04/28/20 04:37 85 28 H 98 04/28/20 04:01 36.7 C 85 20 149/76 H 93 04/28/20 03:07 36.7 C 84 22 166/70 H 95 04/28/20 02:18 36.7 C 87 23 154/52 H 98 04/28/20 01:23 86 25 H 96 04/28/20 01:05 36.7 C 86 18 148/75 H 99 04/28/20 00:01 36.7 C 84 17 128/96 97 04/27/20 23:06 36.7 C 86 18 130/63 98 04/27/20 22:43 68 17 98 04/27/20 22:31 36.7 C 86 23 149/60 H 100 04/28/20 04:33 04/28/20 04:33 Coding Level of Care Code Critical Care 1st 30-74 mins Diagnoses Hypercapnic respiratory failure J96.92 Time Spent (min) 35
--- NOTE | 2020-04-28 09:13 | Nephrology Progress Note ---
Date of Service April 28, 2020 Assessment & Plan (1) ERVIN (acute kidney injury): Non-oliguric. Notable improvement in UOP with Bumex gtt and combination diuretic therapy. Continue gtt @ 1 mg/hr. Additional dose of Diuril ordered this AM. Goal is to encourage a slightly negative fluid balance. UA notable for hyaline casts. Urine sodium markedly low when checked yesterday. Janelle remains volume overloaded with CRS. Poor oral intake. Her overall condition is guarded. I would suggest that we continue diuresis. I have discussed potential role of dialysis and the patient and his have expressed that they do not believe this would be consistent with personal goals of care. I have requested a palliative care consultation to assist with goals of care moving forward. Overall, the patient's condition is guarded unfortunately and her path to recovery is long. Janelle does not seem to comprehend her condition or what recovery may look like. Hyperkalemia improved with medical management including combination diuretic therapy and patiromer. Document strict I/O's. Repeat metabolic profile this afternoon has been requested. (2) Acute respiratory distress: (3) CHF (congestive heart failure): Transthoracic echocardiogram reviewed. Preserved left ventricular systolic function. Predominately evidence of right heart failure. History of paroxysmal atrial fibrillation noted. (4) CKD (chronic kidney disease) stage 3, GFR 30-59 ml/min: Baseline creatinine approximately 1.1 mgdL. 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 Medications are currently appropriately dosed for kidney function. Admission and Anticipated Discharge Date Admission Date: April 21, 2020 Subjective No acute events overnight. There was improvement in UOP following IV Diuril. Janelle looks a little stronger this AM. She was off BIPAP at the time of my assessment. Work of breathing remains slightly increased. Janelle reports frustration that she has not been able to see her . Yesterday evening and this morning we briefly discussed goals of care including the potential role of hemodialysis. Janelle has expressed a refusal of dialysis but has difficulty explaining why or communicating her understanding. Her confirmed that she has said the same thing to him in the past. He also noted that Janelle has often told him that she would never want to be too aggressive in terms of her care and he is surprised that she has remained in the ICU for so long. No fevers or chills. Review of Systems Review of Systems: All systems reviewed & are unremarkable except as noted in HPI & below Physical Exam Constitutional: + ill appearing, + morbidly obese and + physical limitations Eyes: + anicteric sclerae; no corneal abnormality ENMT: Nose: no external nose abnormality Mouth: no oral mucosal abnormality Neck: normal visual inspection and + thick neck Respiratory: + labored breathing Auscultation: + diminished lung sounds and + rales Cardiovascular: Rate/Rhythm: regular rate Heart Sounds: normal S1 and normal S2 Extremities: + edema Gastrointestinal (Abdomen): Percussion/Palpation: abdomen soft; abdomen nontender Musculoskeletal: Extremities: no cyanosis and no clubbing Skin: no rashes, warm and dry Neurologic: Motor/Sensory: no tremor and no asterixis Psychiatric: Orientation: alert Eye Contact: good eye contact Results & Data ([facility]) Vital Signs (Past 12 Hours) Vital Signs Temp Pulse Resp BP Pulse Ox 04/28/20 08:01 36.5 C 84 24 123/70 90 04/28/20 07:38 86 24 98 04/28/20 07:02 36.5 C 85 20 133/50 L 91 04/28/20 06:01 36.5 C 85 19 142/56 H 97 04/28/20 05:01 36.5 C 85 22 146/61 H 94 04/28/20 04:37 85 28 H 98 04/28/20 04:01 36.7 C 85 20 149/76 H 93 04/28/20 03:07 36.7 C 84 22 166/70 H 95 04/28/20 02:18 36.7 C 87 23 154/52 H 98 04/28/20 01:23 86 25 H 96 04/28/20 01:05 36.7 C 86 18 148/75 H 99 04/28/20 00:01 36.7 C 84 17 128/96 97 04/27/20 23:06 36.7 C 86 18 130/63 98 04/27/20 22:43 68 17 98 04/27/20 22:31 36.7 C 86 23 149/60 H 100 Laboratory Results Laboratory Results - last 24 hr 04/26/20 04/27/20 04/27/20 12:33 08:59 09:16 WBC RBC Hgb POC Hgb Hct POC Hct MCV MCH MCHC RDW Std Deviation RDW Coeff of Davina Plt Count MPV Specimen Type Venous Sample Site POC pH POC pCO2 POC pO2 POC HCO3 POC Total CO2 POC Base Excess ABG pH (Temp Correct) ABG pCO2 (Temp Corrct POC ABG pO2 at Pt Temp POC ABG O2 Sat Shreyas Test POC VBG pH 7.26 L POC VBG pCO2 84 H POC VBG pO2 52 POC VBG HCO3 38 H POC VBG Total CO2 40 H POC Venous O2 Sat 79.0 POC VBG Base Excess 11.0 O2 Delivery Device POC O2 Rate POC FiO2 IPAP POC Sodium Sodium POC Potassium Potassium Chloride Carbon Dioxide Anion Gap BUN Creatinine Est Cr Clr Drug Dosing Est GFR ( Amer) Est GFR (Non-Af Amer) BUN/Creatinine Ratio Glucose POC Glucose 115 H Calcium Phosphorus Magnesium Total Bilirubin Direct Bilirubin GGT AST ALT Alkaline Phosphatase NT-Pro-B Natriuret Pep Total Protein Albumin Procalcitonin 0.18 Specimen Hemolysis Urine Color Urine Appearance Urine pH Ur Specific Amorita Urine Protein Urine Glucose (UA) Urine Ketones Urine Blood Urine Nitrite Urine Bilirubin Urine Urobilinogen Ur Leukocyte Esterase Urine WBC (Auto) Urine RBC (Auto) U Hyaline Cast (Auto) U Epithel Cells (Auto) Urine Bacteria (Auto) Granular Casts Urine Osmolality Urine Sodium Urine Potassium Urine Chloride 04/27/20 04/27/20 04/27/20 09:16 12:20 12:37 WBC RBC Hgb POC Hgb Hct POC Hct MCV MCH MCHC RDW Std Deviation RDW Coeff of Davina Plt Count MPV Specimen Type Sample Site POC pH POC pCO2 POC pO2 POC HCO3 POC Total CO2 POC Base Excess ABG pH (Temp Correct) ABG pCO2 (Temp Corrct POC ABG pO2 at Pt Temp POC ABG O2 Sat Shreyas Test POC VBG pH POC VBG pCO2 POC VBG pO2 POC VBG HCO3 POC VBG Total CO2 POC Venous O2 Sat POC VBG Base Excess O2 Delivery Device POC O2 Rate POC FiO2 IPAP POC Sodium Sodium POC Potassium Potassium Chloride Carbon Dioxide Anion Gap BUN Creatinine Est Cr Clr Drug Dosing Est GFR ( Amer) Est GFR (Non-Af Amer) BUN/Creatinine Ratio Glucose POC Glucose 44 L* 109 H Calcium Phosphorus Magnesium Total Bilirubin Direct Bilirubin GGT 122 H AST ALT Alkaline Phosphatase NT-Pro-B Natriuret Pep Total Protein Albumin Procalcitonin Specimen Hemolysis Urine Color Urine Appearance Urine pH Ur Specific Amorita Urine Protein Urine Glucose (UA) Urine Ketones Urine Blood Urine Nitrite Urine Bilirubin Urine Urobilinogen Ur Leukocyte Esterase Urine WBC (Auto) Urine RBC (Auto) U Hyaline Cast (Auto) U Epithel Cells (Auto) Urine Bacteria (Auto) Granular Casts Urine Osmolality Urine Sodium Urine Potassium Urine Chloride 04/27/20 04/27/20 04/27/20 12:55 12:55 12:55 WBC RBC Hgb POC Hgb Hct POC Hct MCV MCH MCHC RDW Std Deviation RDW Coeff of Davina Plt Count MPV Specimen Type Sample Site POC pH POC pCO2 POC pO2 POC HCO3 POC Total CO2 POC Base Excess ABG pH (Temp Correct) ABG pCO2 (Temp Corrct POC ABG pO2 at Pt Temp POC ABG O2 Sat Shreyas Test POC VBG pH POC VBG pCO2 POC VBG pO2 POC VBG HCO3 POC VBG Total CO2 POC Venous O2 Sat POC VBG Base Excess O2 Delivery Device POC O2 Rate POC FiO2 IPAP POC Sodium Sodium POC Potassium Potassium Chloride Carbon Dioxide Anion Gap BUN Creatinine Est Cr Clr Drug Dosing Est GFR ( Amer) Est GFR (Non-Af Amer) BUN/Creatinine Ratio Glucose POC Glucose Calcium Phosphorus Magnesium Total Bilirubin Direct Bilirubin GGT AST ALT Alkaline Phosphatase NT-Pro-B Natriuret Pep Total Protein Albumin Procalcitonin Specimen Hemolysis Urine Color Dark Yellow Urine Appearance Turbid A Urine pH 5.0 Ur Specific Amorita 1.020 Urine Protein 1+ H Urine Glucose (UA) Negative Urine Ketones Trace H Urine Blood 3+ H Urine Nitrite Negative Urine Bilirubin Negative Urine Urobilinogen Negative Ur Leukocyte Esterase 1+ H Urine WBC (Auto) 5-10 H Urine RBC (Auto) >30 H U Hyaline Cast (Auto) >30 H U Epithel Cells (Auto) >30 H Urine Bacteria (Auto) Negative Granular Casts 5-10 H Urine Osmolality 375 L Urine Sodium 7 Urine Potassium 37.2 Urine Chloride < 10 04/27/20 04/27/20 04/27/20 14:45 14:57 16:55 WBC RBC Hgb POC Hgb Hct POC Hct MCV MCH MCHC RDW Std Deviation RDW Coeff of Davina Plt Count MPV Specimen Type Sample Site POC pH POC pCO2 POC pO2 POC HCO3 POC Total CO2 POC Base Excess ABG pH (Temp Correct) ABG pCO2 (Temp Corrct POC ABG pO2 at Pt Temp POC ABG O2 Sat Shreyas Test POC VBG pH POC VBG pCO2 POC VBG pO2 POC VBG HCO3 POC VBG Total CO2 POC Venous O2 Sat POC VBG Base Excess O2 Delivery Device POC O2 Rate POC FiO2 IPAP POC Sodium Sodium 132 L POC Potassium Potassium 5.7 H Chloride 95 L Carbon Dioxide 34 H Anion Gap 3.0 BUN 70 H Creatinine 2.17 H Est Cr Clr Drug Dosing 31.8 Est GFR ( Amer) 25.0 Est GFR (Non-Af Amer) 21.6 BUN/Creatinine Ratio 32.2 H Glucose 98 POC Glucose 82 Calcium 8.2 L Phosphorus 5.4 H Magnesium 2.9 H Total Bilirubin Direct Bilirubin GGT AST ALT Alkaline Phosphatase NT-Pro-B Natriuret Pep Total Protein Albumin Procalcitonin Specimen Hemolysis Urine Color Urine Appearance Urine pH Ur Specific Amorita Urine Protein Urine Glucose (UA) Urine Ketones Urine Blood Urine Nitrite Urine Bilirubin Urine Urobilinogen Ur Leukocyte Esterase Urine WBC (Auto) Urine RBC (Auto) U Hyaline Cast (Auto) U Epithel Cells (Auto) Urine Bacteria (Auto) Granular Casts Urine Osmolality Urine Sodium Urine Potassium Urine Chloride 04/27/20 04/27/20 04/28/20 21:03 23:53 04:33 WBC 10.18 RBC 4.03 L Hgb 11.6 L POC Hgb Hct 36.5 L POC Hct MCV 90.6 MCH 28.8 MCHC 31.8 L RDW Std Deviation 52.8 H RDW Coeff of Davina 15.9 H Plt Count 203 MPV 9.2 Specimen Type Sample Site POC pH POC pCO2 POC pO2 POC HCO3 POC Total CO2 POC Base Excess ABG pH (Temp Correct) ABG pCO2 (Temp Corrct POC ABG pO2 at Pt Temp POC ABG O2 Sat Shreyas Test POC VBG pH POC VBG pCO2 POC VBG pO2 POC VBG HCO3 POC VBG Total CO2 POC Venous O2 Sat POC VBG Base Excess O2 Delivery Device POC O2 Rate POC FiO2 IPAP POC Sodium Sodium POC Potassium Potassium Chloride Carbon Dioxide Anion Gap BUN Creatinine Est Cr Clr Drug Dosing Est GFR ( Amer) Est GFR (Non-Af Amer) BUN/Creatinine Ratio Glucose POC Glucose 172 H 167 H Calcium Phosphorus Magnesium Total Bilirubin Direct Bilirubin GGT AST ALT Alkaline Phosphatase NT-Pro-B Natriuret Pep Total Protein Albumin Procalcitonin Specimen Hemolysis Urine Color Urine Appearance Urine pH Ur Specific Amorita Urine Protein Urine Glucose (UA) Urine Ketones Urine Blood Urine Nitrite Urine Bilirubin Urine Urobilinogen Ur Leukocyte Esterase Urine WBC (Auto) Urine RBC (Auto) U Hyaline Cast (Auto) U Epithel Cells (Auto) Urine Bacteria (Auto) Granular Casts Urine Osmolality Urine Sodium Urine Potassium Urine Chloride 04/28/20 04/28/20 04/28/20 04:33 04:33 05:23 WBC RBC Hgb POC Hgb 12.2 Hct POC Hct 36 L MCV MCH MCHC RDW Std Deviation RDW Coeff of Davina Plt Count MPV Specimen Type Sample Site R Radial POC pH 7.32 L POC pCO2 71 H POC pO2 81 POC HCO3 37 H POC Total CO2 39 H POC Base Excess 11.0 H ABG pH (Temp Correct) 7.329 L ABG pCO2 (Temp Corrct 69 H POC ABG pO2 at Pt Temp 79 POC ABG O2 Sat 94.0 Shreyas Test Pass POC VBG pH POC VBG pCO2 POC VBG pO2 POC VBG HCO3 POC VBG Total CO2 POC Venous O2 Sat POC VBG Base Excess O2 Delivery Device BIPAP POC O2 Rate 16 POC FiO2 40 IPAP 20 POC Sodium 130 L Sodium 132 L POC Potassium 4.7 Potassium 4.7 D Chloride 94 L Carbon Dioxide 35 H Anion Gap 3.0 BUN 79 H Creatinine 2.53 H D Est Cr Clr Drug Dosing 27.2 Est GFR ( Amer) 20.8 Est GFR (Non-Af Amer) 17.9 BUN/Creatinine Ratio 31.2 H Glucose 173 H POC Glucose Calcium 8.5 Phosphorus 5.7 H Magnesium 2.6 H Total Bilirubin 0.6 Direct Bilirubin 0.2 GGT AST 60 H ALT 74 Alkaline Phosphatase 178 H NT-Pro-B Natriuret Pep Pending Total Protein 6.4 Albumin 2.3 L Procalcitonin Specimen Hemolysis Urine Color Urine Appearance Urine pH Ur Specific Amorita Urine Protein Urine Glucose (UA) Urine Ketones Urine Blood Urine Nitrite Urine Bilirubin Urine Urobilinogen Ur Leukocyte Esterase Urine WBC (Auto) Urine RBC (Auto) U Hyaline Cast (Auto) U Epithel Cells (Auto) Urine Bacteria (Auto) Granular Casts Urine Osmolality Urine Sodium Urine Potassium Urine Chloride 04/28/20 07:45 WBC RBC Hgb POC Hgb Hct POC Hct MCV MCH MCHC RDW Std Deviation RDW Coeff of Davina Plt Count MPV Specimen Type Sample Site POC pH POC pCO2 POC pO2 POC HCO3 POC Total CO2 POC Base Excess ABG pH (Temp Correct) ABG pCO2 (Temp Corrct POC ABG pO2 at Pt Temp POC ABG O2 Sat Shreyas Test POC VBG pH POC VBG pCO2 POC VBG pO2 POC VBG HCO3 POC VBG Total CO2 POC Venous O2 Sat POC VBG Base Excess O2 Delivery Device POC O2 Rate POC FiO2 IPAP POC Sodium Sodium POC Potassium Potassium Chloride Carbon Dioxide Anion Gap BUN Creatinine Est Cr Clr Drug Dosing Est GFR ( Amer) Est GFR (Non-Af Amer) BUN/Creatinine Ratio Glucose POC Glucose 165 H Calcium Phosphorus Magnesium Total Bilirubin Direct Bilirubin GGT AST ALT Alkaline Phosphatase NT-Pro-B Natriuret Pep Total Protein Albumin Procalcitonin Specimen Hemolysis Urine Color Urine Appearance Urine pH Ur Specific Amorita Urine Protein Urine Glucose (UA) Urine Ketones Urine Blood Urine Nitrite Urine Bilirubin Urine Urobilinogen Ur Leukocyte Esterase Urine WBC (Auto) Urine RBC (Auto) U Hyaline Cast (Auto) U Epithel Cells (Auto) Urine Bacteria (Auto) Granular Casts Urine Osmolality Urine Sodium Urine Potassium Urine Chloride PG Care Time/CCT Total # of Minutes Spent Total Time Spent with Patient: Total time spent is greater than 50% in coordination of care (as documented) at patient's floor/unit and/or counseling patient: Coding Level of Care Code 11336 Subseq Hosp Care Lvl 3 Diagnoses ERVIN (acute kidney injury) N17.9 Acute respiratory distress R06.03 CHF (congestive heart failure) I50.9 Heart failure chronicity: chronic Heart failure type: unspecified CKD (chronic kidney disease) stage 3, GFR 30-59 ml/min N18.3 (1) CHF (congestive heart failure) Heart failure chronicity: chronic Heart failure type: unspecified Qualified Code(s): I50.9 - Heart failure, unspecified
[2020-04-28] MEDS ORDERED: CHLOROTHIAZIDE SODIUM 500 MG in DEXTROSE 5% 50 ML IV ONE ×2 (09:15→20:30)
[2020-04-28] MEDS: DAPTOmycin 500 MG in SYRINGE 0 ML IV SCH (11:10)
--- NOTE | 2020-04-28 14:41 | Pharmacy Report ---
Pharmacy Glycemic Short Note 2 - Date of Service April 28, 2020 - Glycemic Short BSG Results (Last 24 hours): 04/27/20 04/27/20 04/27/20 14:45 14:57 21:03 Glucose 98 POC Glucose 82 172 H 04/27/20 04/28/20 04/28/20 23:53 04:33 07:45 Glucose 173 H POC Glucose 167 H 165 H 04/28/20 11:08 Glucose POC Glucose 251 H OUTPATIENT ANTIDIABETIC REGIMEN: * Humulin 70/30 82 units with breakfast, 85 qpm, metformin 1000 mg qam, 500 qpm, insulin lispro 10 units with lunch * A1c 7.2% on 04/22 ASSESSMENT: * Ms. Arellano's insulin on hold yesterday secondary to hypoglycemia events with fasting and lunch BSGs, improved overnight into the 160s * Fasting this morning 165, was able to eat breakfast and lunch today with intermittent BiPAP * SCr continues to increase, cautious with basal administration as patient has been intermittently unable to eat * Patient's BSG was elevated at lunch, will continue to monitor for needed adjustments to novolog parameters PLAN FOR INPATIENT GLYCEMIC CONTROL: * Hold outpatient oral diabetes medications * Basal insulin * Lantus 10 units SQ this am; scale for PM 0-20 units * Bolus insulin * NovoLog per scale ACHS or Q6hrs while NPO * Goal Range: Low 120 mg/dL - High 160 mg/dL * Correction Factor: 20 mg/dL/unit * Nutritional / Prandial insulin per carb ratio of 1 unit per 6 grams CHO consumed PLAN FOR DISCHARGE: * A1c 7.2%, reasonable for this patient, can likely continue home regimen if not experiencing frequent hypoglycemia at home.
[2020-04-28 15:43] LABS: BUN Creatinine Ratio 30.6 (10-20); Creatinine Clr Calc Pharmacy 24.9 ml/min; Est GFR (African American) 18.5; Est GFR (Non-African American) 15.9; Potassium 4.5 mmol/L (3.5-5.1)
[2020-04-28] MEDS: allopurinoL 100 MG TAB PO SCH (16:41)
[2020-04-28] MEDS: DOCUSATE SODIUM 100 MG CAP PO SCH (20:22)
[2020-04-28] MEDS: APIXABAN 5 MG TABLET PO SCH (20:22)
[2020-04-28] MEDS: INSULIN GLARGINE SOLOSTAR 100 UNITS/ML 3 ML PEN SC SCH (20:25)
--- NOTE | 2020-04-28 21:22 | Hospitalist Progress Note ---
Date of Service April 28, 2020 Assessment & Plan (1) Acute respiratory distress: Patient continues to require BIPAP, but is on less now. She is tolerating nasal cannula. will remain in ICU. (2) Osteomyelitis of third toe of right foot: Diabetic foot ulcer/osteomyelitis- On daptomycinIV and aztreonam IV. Wound care consult May need ortho c/s pending wound care assessment Initial blood cx neg, repeat pending given change in status WBC not technically elevated, but higher than on admission (3) CHF (congestive heart failure): Acute on chronic diastolic CHF on admission CHF/atrial fibrillation/hypertension- Chest x-ray on admission suggestive of acute CHF. on bumex and chlothiazide. Continue diltiazem extended release 240 mg every morning, mag oxide 800 mg p.o. daily, potassium chloride 40 mEq p.o. every morning. Continue metoprolol succinate extended release 150 mg every morning. Continue Xarelto 15 mg p.o. HS COVID neg on admission Patient not making much urine. will monitor. ECHO with EF 50-55% and no changes noted from last ECHO on 11/10/19 (4) Chronic venous insufficiency: Will improve with diuretics as noted for CHF above (5) Venous stasis dermatitis of both lower extremities: See above (6) Diabetic peripheral neuropathy associated with type 2 diabetes mellitus: Not on any direct treatment for peripheral neuropathy. Hold metformin. Hold insulin lispro. Continue Humulin 70/30 82 units subcu in the a.m. and 85 units subcu in the p.m. with holds SSI A1c 7.2 (7) PAD (peripheral artery disease): Continue Xarelto (8) Hyperlipidemia: Continue atorvastatin 40 mg daily (9) CKD (chronic kidney disease) stage 3, GFR 30-59 ml/min: Patient appears to be having acute kidney failure. now making more urine. appreciate nephro input. (10) COPD (chronic obstructive pulmonary disease): Duo nebs every 2 hours as needed (11) Atrial fibrillation: Continue Xarelto 15 mg p.o. daily. See above (12) Hypothyroidism: Continue levothyroxine 50 mcg daily (13) Depression with anxiety: On no direct treatment at this time, however, resumption of some form of treatment may need to be considered (14) Ear pain, right: Improving s/p debrox trial (15) Hematuria: Noted in montesinos after some thrashing with earlier breathing issues and likely traumatic UA + for blood, leuk est, neg nitrites Pt without urinary complaints [employer] Unlikely that she developed a UTI given above abx Admission and Anticipated Discharge Date Admission Date: April 21, 2020 Subjective 74 yo female reports feeling slightly better. She states she is breathing better. She denies any nausea, vomtiing. She states she is hungry. Review of Systems Review of Systems: All systems reviewed & are unremarkable except as noted in HPI & below Physical Exam Physical Exam: Constitutional: WD/WN, vitals as above Eyes: normal visual figueroa by confrontation and + anicteric sclerae Neck: normal visual inspection and trachea midline Respiratory: normal respiratory effort, lungs clear to auscultation normal respiratory effort; no respiratory distress Auscultation: tight, decreased breath sounds Cardiovascular: Rate/Rhythm: regular rate and regular rhythm Extremities: + edema (improved) Gastrointestinal (Abdomen): Inspection/Auscultation: abdomen not distended Percussion/Palpation: abdomen soft; abdomen nontender Musculoskeletal: Head/Neck/Chest: normocephalic and head atraumatic Skin: + erythema (improved) Neurologic: awake; not confused Speech / Cognition: normal speech Psychiatric: A+Ox3, euthymic affect Results & Data Results & Data ([facility]) Vital Signs (Past 12 Hours) Vital Signs Temp Pulse Resp BP Pulse Ox 04/28/20 20:01 36.4 C L 74 22 140/65 96 04/28/20 19:01 36.4 C L 73 24 150/67 H 95 04/28/20 18:08 78 24 97 04/28/20 18:01 36.5 C 80 23 138/73 93 04/28/20 17:01 36.5 C 72 24 126/70 92 04/28/20 16:02 78 24 97 04/28/20 16:01 36.5 C 72 19 130/63 96 04/28/20 15:01 36.5 C 74 24 142/73 H 96 04/28/20 14:01 36.7 C 76 24 135/60 94 04/28/20 13:01 36.6 C 77 24 133/62 94 04/28/20 12:01 36.6 C 82 22 137/70 94 04/28/20 11:10 36.7 C 84 22 140/73 99 04/28/20 10:15 81 22 98 04/28/20 10:01 36.7 C 85 20 156/139 H 98 04/28/20 10:00 95 PG Care Time/CCT Total # of Minutes Spent Total Time Spent with Patient: Total time spent is greater than 50% in coordination of care (as documented) at patient's floor/unit and/or counseling patient: Coding Level of Care Code 04739 Subseq Hosp Care Lvl 3 Diagnoses Acute respiratory distress R06.03 Osteomyelitis of third toe of right foot M86.9 CHF (congestive heart failure) I50.9 Heart failure chronicity: chronic Heart failure type: unspecified Chronic venous insufficiency I87.2 Venous stasis dermatitis of both lower extremities I87.2 Diabetic peripheral neuropathy associated with type 2 diabetes mellitus E11.42 PAD (peripheral artery disease) I73.9 Hyperlipidemia E78.5 CKD (chronic kidney disease) stage 3, GFR 30-59 ml/min N18.3 COPD (chronic obstructive pulmonary disease) J44.9 Atrial fibrillation I48.91 Hypothyroidism E03.9 Depression with anxiety F41.8 Ear pain, right H92.01 Hematuria R31.9 Time Spent (min) 35 (1) CHF (congestive heart failure) Heart failure chronicity: chronic Heart failure type: unspecified Qualified Code(s): I50.9 - Heart failure, unspecified
[2020-04-29] MEDS: NITROGLYCERIN 2% OINTMENT 30GM TUBE EXT SCH ×4 (01:58→18:49)
[2020-04-29 04:34] LABS: Basophils # (auto) 0.04 K/uL (0-0.2); Basophils % (auto) 0.4 %; Eosinophils # (auto) 0.56 K/uL (0-0.5); Eosinophils % (auto) 5.8 %; Hematocrit (blood only) 35.2 % (37-47); Hemoglobin 11.1 g/dL (12.0-16.0); Immature Granulocytes # (auto) 0.05 K/uL (0.00-0.02); Immature Granulocytes % (auto) 0.5 %; Lymphocytes % (auto) 7.2 %; Mean Corpuscular Hemoglobin 28.2 pg (25-34); Mean Corpuscular Hgb Conc 31.5 g/dL (32-36); Mean Corpuscular Volume 89.6 fL (80-100); Mean Platelet Volume 9.9 fL (7.4-10.4); Monocytes # (auto) 1.01 K/uL (0.11-0.59); Monocytes % (auto) 10.4 %; Neutrophils # (auto) 7.34 K/uL (1.4-6.5); Neutrophils % (auto) 75.7 %; Platelet Count 217 K/uL (130-400); RDW Coefficient of Variation 16.2 % (11.5-14.5); Red Blood Count 3.93 M/uL (4.2-5.4)
[2020-04-29 04:55] LABS: Albumin Globulin Ratio 0.5 (0.9-2); Albumin Level 2.1 gm/dl (3.4-5.0); BUN Creatinine Ratio 30.5 (10-20); Bilirubin,Total 0.6 mg/dl (0.2-1); Creatinine Clr Calc Pharmacy 23.5 ml/min; Est GFR (African American) 17.3; Est GFR (Non-African American) 14.9; Globulin 4.2 gm/dl (2.5-4.0); Phosphorus 6.3 mg/dl (2.5-4.9); Total Protein 6.3 gm/dl (6.4-8.2)
[2020-04-29 05:03] LABS: iSTAT Allen Test Pass; iSTAT Art Bld Gas pCO2 Correct 64 mmHg (35-46); iSTAT Art Bld Gas pH Corrected 7.352 (7.35-7.45); iSTAT Arterial Blood Gas HCO3 36 meg/L (19-24); iSTAT Arterial Blood Gas pCO2 67 mmHg (35-46); iSTAT Arterial Blood Gas pH 7.34 (7.35-7.45); iSTAT Arterial Blood Gas pO2 74 mmHg (80-95); iSTAT Arterial Blood Gas pO2 C 68; iSTAT Carbon Dioxide 38 mmol/L (24-31); iSTAT FiO2 30 %; iSTAT Hematocrit 34 % (37-47); iSTAT Hemoglobin 11.6 g/dl (12.0-16.0); iSTAT Site R Radial; iSTAT Sodium 131 mmol/L (135-144)
[2020-04-29] MEDS: LEVOTHYROXINE SODIUM 50 MCG TABLET PO SCH (06:21)
[2020-04-29 06:59] LABS: Potassium 3.9 mmol/L (3.5-5.1)
[2020-04-29 07:04] LABS: Magnesium 2.7 mg/dl (1.8-2.4)
[2020-04-29] MEDS: INSULIN ASPART 100 UNITS/ML 3 ML PEN SC SCH ×4 (08:16→21:12)
[2020-04-29] MEDS: dilTIAZem HCL 240 MG CAPCR PO SCH (08:17)
[2020-04-29] MEDS: INSULIN GLARGINE SOLOSTAR 100 UNITS/ML 3 ML PEN SC SCH ×2 (08:17→21:13)
[2020-04-29] MEDS: DOCUSATE SODIUM 100 MG CAP PO SCH ×2 (08:17→20:01)
[2020-04-29] MEDS: APIXABAN 5 MG TABLET PO SCH ×2 (08:17→20:01)
[2020-04-29] MEDS: NYSTATIN POWDER 15GM BTL EXT SCH ×3 (08:18→20:04)
[2020-04-29] MEDS: METOPROLOL SUCC 50MG EXT REL TAB PO SCH (08:18)
[2020-04-29] MEDS: BUMETANIDE 10 MG in DEXTROSE 5% 10 ML IV SCH ×2 (08:19→14:36)
--- NOTE | 2020-04-29 08:59 | Critical Care Progress Note ---
Date of Service April 29, 2020 Assessment & Plan (1) Hypercapnic respiratory failure: Chest x-ray 04/25/2020 personally reviewed: Increased pulmonary vascular markings, blunted bilateral costophrenic and cardiophrenic angles, increased cardiac silhouette. Goes more along with pulmonary edema --ERVIN on CKD Patient has been started on bumetanide drip as per nephrology recommendation Monitor BUNs/creatinine Avoid nephrotoxic medications Nephrology on board Creatinine still worsening but patient has having urine output with the help of diuretics. --Acute on chronic hypercapnic respiratory failure Likely secondary to combination of JACKIE/OHS Patient is tolerating BiPAP right now Continue with the BiPAP for the time being and keep a very close eye on her Avoid any sedating medication I highly doubt that the patient has pneumonia. Irrespective she is already on antibiotics for her osteo. Covid-19 PCR was negative on 04/21/2020. --Mild elevation of liver function tests Right upper quadrant ultrasound was ordered and was negative for any acute cholecystitis but did show biliary sludge and stones Right upper quad ultrasound shows cirrhotic morphology of the liver (no laboratory finding suggesting cirrhosis) could be from chronic diastolic CHF on top of Terry GGT is mildly elevated at 122. LFTs are trending down --Diastolic CHF BNP: 3248 on 04/26/2020 EF 50-55% on echo done this admission Continue with diuretics as tolerated Keep negative balance, strict in and outs Monitor electrolytes Continue with BiPAP --A. fib Rate controlled On Xarelto --Osteomyelitis of the third toe of the right foot ESR: 61, CRP: 5.83 on 04/26/2020 Continue with antibiotics as tolerated Would monitor CPK given the patient is on daptomycin There is no eosinophilia appreciated on the blood work which rules out DRESS syndrome --Diabetes type 2 Continue with ICU hyperglycemia protocol --Morbid obesity with high likelihood of JACKIE/OHS Continue with BiPAP nightly and PRN shortness of breath Patient will benefit from BiPAP on being discharged from the hospital --Hypothyroidism Continue with levothyroxine TSH 1.49, within normal limits --Dyslipidemia On atorvastatin --Hyponatremia Hypervolemic Plus patient being on diuretics Monitor --Hyperphosphatemia Monitor May need to start the patient on sevelamer if it starts creeping up more --Prophylaxis VTE: Xarelto Lines: Peripheral Diet: Cardiorenal Plan: In/out: Positive 35, urine output 1075 ABG from today 7.34 this was on BiPAP 20/8 30% FiO2 Creatinine: 2.95 <--2.79 Currently the main issue of the patient is her ERVIN on CKD. Patient is needing drip to have urine output and her creatinine function is getting worse. As per the yesterday patient had multiple talks with Dr. Brambila who is her kidney doctor and she had multiple times said that she would not like to be on dialysis. He also stated that patient would never want to be too aggressive in terms of her care. She is not an absolute need of renal replacement therapy right now but if her kidney function does not take a turn towards good side there is a possibility we might need it in the near future. Palliative care has been consulted to help make the decision regarding the goals of care. I think the best course for the patient given her multiple comorbidities and her multiple times reiterating before this episode of not being too aggressive with the care a palliative approach will be the appropriate thing for the patient. Respiratory status is better than when she was primary admit to the ICU. She still needs BiPAP support. I have personally spent 36 minutes of critical care time in the direct management of this patient. This is a life/limb threatening event. This includes time spent evaluating patient, direct bedside care, chart review, placing orders, interpretation of diagnostic studies, discussion with consultants, patient, and family members, as well as other required patient management activities. This time is exclusive of all separately billable procedures, and teaching time and separate from and in addition to any other critical care service time. Please note the above document was generated using voice recognition software. It may contain grammatical, syntax or spelling errors. Admission and Anticipated Discharge Date Admission Date: April 21, 2020 Subjective Patient seen and examined at bedside. No acute distress, no adverse events overnight. Patient is compliant with BiPAP overnight. She is awake alert oriented x2 answering all the questions appropriately. Asking for food. Patient had no bowel movements in the last couple of days. Laxative has been added on a daily basis. Afebrile Review of Systems Review of Systems: All systems reviewed & are unremarkable except as noted in Subjective Physical Exam Physical Exam: Constitutional: No acute distress HEENT: EOMI, PERRLA, thick neck Respiratory system: Decreased air entry bilaterally, mild crackles bilateral lower lobes, no wheeze, no rhonchi CVS: S1-S2 positive, no murmurs or gallops, distant heart sounds Abdomen: Soft, nontender, nondistended, positive bowel sounds x4, obese Extremities: +2 pulses bilaterally radialis/ dorsalis pedis, no cyanosis, positive pitting edema bilateral lower extremity, compression stockings bilateral lower extremity Neuro: Awake alert oriented to self and place, answering simple questions moving all extremities Psych: Normal mood and affect G/U: Positive Marino Skin: no rashes, warm and dry Lymphatic: no cervical or axillary lymphadenopathy Results & Data Results & Data ([facility]) Vital Signs (Past 12 Hours) Vital Signs Temp Pulse Resp BP Pulse Ox 04/29/20 07:00 74 20 95 04/29/20 06:01 36.0 C L 70 22 138/63 93 04/29/20 05:01 35.9 C L 76 20 142/57 H 93 04/29/20 04:01 35.9 C L 73 23 127/60 95 04/29/20 03:01 35.9 C L 72 20 131/58 L 96 04/29/20 02:01 35.9 C L 73 19 139/64 95 04/29/20 01:28 71 29 H 98 04/29/20 01:01 36.0 C L 69 22 128/59 L 98 04/29/20 00:35 36.0 C L 69 24 125/83 97 04/28/20 23:28 70 33 H 98 04/28/20 23:01 36.1 C L 72 26 H 140/62 99 04/28/20 22:01 36.3 C L 75 24 129/60 97 04/28/20 21:05 73 20 96 04/28/20 21:01 36.3 C L 76 20 132/62 98 04/29/20 04:19 04/29/20 06:15 Coding Level of Care Code Critical Care 1st 30-74 mins Diagnoses Hypercapnic respiratory failure J96.92 Time Spent (min) 36
[2020-04-29] MEDS ORDERED: CHLOROTHIAZIDE SODIUM 500 MG in DEXTROSE 5% 50 ML IV ONE (09:30)
--- NOTE | 2020-04-29 10:43 | Nephrology Progress Note ---
Date of Service April 29, 2020 Assessment & Plan (1) ERVIN (acute kidney injury): Non-oliguric. Additional 500 mg IV Diuril provided this AM. Continue gtt @ 1 mg/hr until this afternoon. Unfortunately, despite improved urine output, we have not been able to achieve appropriate diuresis. I will try to transition to PO torsemide this afternoon and continue to monitor. I also continue to have an ongoing discussion with the patient regarding the potential role of dialysis. Janelle remains opposed under any circumstances. Given her medical comorbidities including underlying lung disease, she may desire to transition to a more palliative care option such as hospice. A discussion regarding goals of care is planned for later today. Her overall condition is guarded. Hyperkalemia improved with medical management including combination diuretic therapy and patiromer. Document strict I/O's. Repeat metabolic profile this afternoon has been requested. (2) Acute respiratory distress: Remains on BiPAP. (3) CHF (congestive heart failure): Transthoracic echocardiogram reviewed. Preserved left ventricular systolic function. Predominately evidence of right heart failure. History of paroxysmal atrial fibrillation noted. (4) CKD (chronic kidney disease) stage 3, GFR 30-59 ml/min: Baseline creatinine approximately 1.1 mgdL. 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 Medications are currently appropriately dosed for kidney function. Admission and Anticipated Discharge Date Admission Date: April 21, 2020 Subjective No acute events overnight. Janelle feels slightly better this AM. There has been some improvement in urine output this shift. She remains very tentative about the idea of dialysis. She spoke to her yesterday. Janelle states that she would likely refuse HD. A meeting with palliative care remains scheduled. She remains BIPAP dependent. No fevers or chills. Marino intact. Review of Systems Review of Systems: All systems reviewed & are unremarkable except as noted in HPI & below Physical Exam Constitutional: + ill appearing, + morbidly obese and + physical limitations Eyes: + anicteric sclerae; no corneal abnormality ENMT: Nose: no external nose abnormality Mouth: no oral mucosal abnormality Neck: normal visual inspection and + thick neck Respiratory: + labored breathing Auscultation: + diminished lung sounds and + rales Cardiovascular: Rate/Rhythm: regular rate Heart Sounds: normal S1 and normal S2 Extremities: + edema Gastrointestinal (Abdomen): Percussion/Palpation: abdomen soft; abdomen nontender Musculoskeletal: Extremities: no cyanosis and no clubbing Skin: no rashes, warm and dry Neurologic: Motor/Sensory: no tremor and no asterixis Psychiatric: Orientation: alert Eye Contact: good eye contact Results & Data ([facility]) Vital Signs (Past 12 Hours) Vital Signs Temp Pulse Resp BP Pulse Ox 04/29/20 10:30 35.8 C L 75 22 96 04/29/20 10:01 35.8 C L 69 20 126/61 96 04/29/20 10:00 35.8 C L 75 25 H 95 04/29/20 09:30 35.9 C L 77 20 95 04/29/20 09:01 35.9 C L 74 16 135/71 92 04/29/20 09:00 35.9 C L 72 17 94 04/29/20 08:31 35.9 C L 72 20 94 04/29/20 08:01 35.8 C L 74 27 H 144/82 H 95 04/29/20 07:31 35.8 C L 79 20 96 04/29/20 07:01 35.9 C L 75 28 H 151/73 H 95 04/29/20 07:00 74 20 95 04/29/20 06:46 35.9 C L 72 22 95 04/29/20 06:01 36.0 C L 70 22 138/63 93 04/29/20 05:01 35.9 C L 76 20 142/57 H 93 04/29/20 04:01 35.9 C L 73 23 127/60 95 04/29/20 03:01 35.9 C L 72 20 131/58 L 96 04/29/20 02:01 35.9 C L 73 19 139/64 95 04/29/20 01:28 71 29 H 98 04/29/20 01:01 36.0 C L 69 22 128/59 L 98 04/29/20 00:35 36.0 C L 69 24 125/83 97 04/28/20 23:28 70 33 H 98 04/28/20 23:01 36.1 C L 72 26 H 140/62 99 Laboratory Results Laboratory Results - last 24 hr 04/28/20 04/28/20 04/28/20 11:08 15:01 16:36 WBC RBC Hgb POC Hgb Hct POC Hct MCV MCH MCHC RDW Std Deviation RDW Coeff of Davina Plt Count MPV Immature Gran % (Auto) Neut % (Auto) Lymph % (Auto) Alpine % (Auto) Eos % (Auto) Baso % (Auto) Neut # (Auto) Lymph # (Auto) Alpine # (Auto) Eos # (Auto) Baso # (Auto) Immature Gran # (Auto) Sample Site POC pH POC pCO2 POC pO2 POC HCO3 POC Total CO2 POC Base Excess ABG pH (Temp Correct) ABG pCO2 (Temp Corrct POC ABG pO2 at Pt Temp POC ABG O2 Sat Shreyas Test O2 Delivery Device POC O2 Rate POC FiO2 IPAP POC Sodium Sodium 130 L POC Potassium Potassium 4.5 Chloride 90 L Carbon Dioxide 33 H Anion Gap 6.0 BUN 86 H Creatinine 2.79 H Est Cr Clr Drug Dosing 24.9 Est GFR ( Amer) 18.5 Est GFR (Non-Af Amer) 15.9 BUN/Creatinine Ratio 30.6 H Glucose 213 H POC Glucose 251 H 193 H Calcium 9.0 Phosphorus Magnesium Total Bilirubin AST ALT Alkaline Phosphatase Total Creatine Kinase Total Protein Albumin Globulin Albumin/Globulin Ratio 04/28/20 04/29/20 04/29/20 20:24 04:19 04:19 WBC 9.70 RBC 3.93 L Hgb 11.1 L POC Hgb Hct 35.2 L POC Hct MCV 89.6 MCH 28.2 MCHC 31.5 L RDW Std Deviation 53.0 H RDW Coeff of Davina 16.2 H Plt Count 217 MPV 9.9 Immature Gran % (Auto) 0.5 Neut % (Auto) 75.7 Lymph % (Auto) 7.2 Alpine % (Auto) 10.4 Eos % (Auto) 5.8 Baso % (Auto) 0.4 Neut # (Auto) 7.34 H Lymph # (Auto) 0.70 L Alpine # (Auto) 1.01 H Eos # (Auto) 0.56 H Baso # (Auto) 0.04 Immature Gran # (Auto) 0.05 H Sample Site POC pH POC pCO2 POC pO2 POC HCO3 POC Total CO2 POC Base Excess ABG pH (Temp Correct) ABG pCO2 (Temp Corrct POC ABG pO2 at Pt Temp POC ABG O2 Sat Shreyas Test O2 Delivery Device POC O2 Rate POC FiO2 IPAP POC Sodium Sodium 132 L POC Potassium Potassium Chloride 93 L Carbon Dioxide 33 H Anion Gap 6.0 BUN 90 H Creatinine 2.95 H Est Cr Clr Drug Dosing 23.5 Est GFR ( Amer) 17.3 Est GFR (Non-Af Amer) 14.9 BUN/Creatinine Ratio 30.5 H Glucose 108 H POC Glucose 156 H Calcium 8.0 L Phosphorus 6.3 H Magnesium Total Bilirubin 0.6 AST ALT 55 Alkaline Phosphatase 152 H Total Creatine Kinase Total Protein 6.3 L Albumin 2.1 L Globulin 4.2 H Albumin/Globulin Ratio 0.5 L 04/29/20 04/29/20 04/29/20 04:49 05:24 06:15 WBC RBC Hgb POC Hgb 11.6 L Hct POC Hct 34 L MCV MCH MCHC RDW Std Deviation RDW Coeff of Davina Plt Count MPV Immature Gran % (Auto) Neut % (Auto) Lymph % (Auto) Alpine % (Auto) Eos % (Auto) Baso % (Auto) Neut # (Auto) Lymph # (Auto) Alpine # (Auto) Eos # (Auto) Baso # (Auto) Immature Gran # (Auto) Sample Site R Radial POC pH 7.34 L POC pCO2 67 H POC pO2 74 L POC HCO3 36 H POC Total CO2 38 H POC Base Excess 10.0 H ABG pH (Temp Correct) 7.352 ABG pCO2 (Temp Corrct 64 H POC ABG pO2 at Pt Temp 68 POC ABG O2 Sat 93.0 Shreyas Test Pass O2 Delivery Device BIPAP POC O2 Rate 16 POC FiO2 30 IPAP 20 POC Sodium 131 L Sodium POC Potassium 4.0 Potassium 3.9 Chloride Carbon Dioxide Anion Gap BUN Creatinine Est Cr Clr Drug Dosing Est GFR ( Amer) Est GFR (Non-Af Amer) BUN/Creatinine Ratio Glucose POC Glucose Calcium Phosphorus Magnesium 2.7 H Total Bilirubin AST 40 H ALT Alkaline Phosphatase Total Creatine Kinase Total Protein Albumin Globulin Albumin/Globulin Ratio 04/29/20 04/29/20 06:15 07:28 WBC RBC Hgb POC Hgb Hct POC Hct MCV MCH MCHC RDW Std Deviation RDW Coeff of Davina Plt Count MPV Immature Gran % (Auto) Neut % (Auto) Lymph % (Auto) Alpine % (Auto) Eos % (Auto) Baso % (Auto) Neut # (Auto) Lymph # (Auto) Alpine # (Auto) Eos # (Auto) Baso # (Auto) Immature Gran # (Auto) Sample Site POC pH POC pCO2 POC pO2 POC HCO3 POC Total CO2 POC Base Excess ABG pH (Temp Correct) ABG pCO2 (Temp Corrct POC ABG pO2 at Pt Temp POC ABG O2 Sat Shreyas Test O2 Delivery Device POC O2 Rate POC FiO2 IPAP POC Sodium Sodium POC Potassium Potassium Chloride Carbon Dioxide Anion Gap BUN Creatinine Est Cr Clr Drug Dosing Est GFR ( Amer) Est GFR (Non-Af Amer) BUN/Creatinine Ratio Glucose POC Glucose 139 H Calcium Phosphorus Magnesium Total Bilirubin AST ALT Alkaline Phosphatase Total Creatine Kinase 38 Total Protein Albumin Globulin Albumin/Globulin Ratio PG Care Time/CCT Total # of Minutes Spent Total Time Spent with Patient: Total time spent is greater than 50% in coordination of care (as documented) at patient's floor/unit and/or counseling patient: Coding Level of Care Code 45076 Subseq Hosp Care Lvl 3 Diagnoses ERVIN (acute kidney injury) N17.9 Acute respiratory distress R06.03 CHF (congestive heart failure) I50.9 Heart failure chronicity: chronic Heart failure type: unspecified CKD (chronic kidney disease) stage 3, GFR 30-59 ml/min N18.3 (1) CHF (congestive heart failure) Heart failure chronicity: chronic Heart failure type: unspecified Qualified Code(s): I50.9 - Heart failure, unspecified
--- NOTE | 2020-04-29 11:29 | Critical Care Progress Note ---
Date of Service April 29, 2020 Assessment & Plan (1) Goals of care, counseling/discussion: This morning had an extensive goals of care discussion with the patient and her . Explained that the diuretics improve her respiratory status however her kidney function continues to worsen, such that she would need dialysis in order to improve this. She is vehement that she will not undergo dialysis; she and her understand that without dialysis her kidney function will continue to deteriorate and she will ultimately demise. Admission and Anticipated Discharge Date Admission Date: April 21, 2020 Results & Data Results & Data ([facility]) Vital Signs (Past 12 Hours) Vital Signs Temp Pulse Resp BP Pulse Ox 04/29/20 10:30 35.8 C L 75 22 96 04/29/20 10:01 35.8 C L 69 20 126/61 96 04/29/20 10:00 35.8 C L 75 25 H 95 04/29/20 09:30 35.9 C L 77 20 95 04/29/20 09:01 35.9 C L 74 16 135/71 92 04/29/20 09:00 35.9 C L 72 17 94 04/29/20 08:31 35.9 C L 72 20 94 04/29/20 08:01 35.8 C L 74 27 H 144/82 H 95 04/29/20 07:31 35.8 C L 79 20 96 04/29/20 07:01 35.9 C L 75 28 H 151/73 H 95 04/29/20 07:00 74 20 95 04/29/20 06:46 35.9 C L 72 22 95 04/29/20 06:01 36.0 C L 70 22 138/63 93 04/29/20 05:01 35.9 C L 76 20 142/57 H 93 04/29/20 04:01 35.9 C L 73 23 127/60 95 04/29/20 03:01 35.9 C L 72 20 131/58 L 96 04/29/20 02:01 35.9 C L 73 19 139/64 95 04/29/20 01:28 71 29 H 98 04/29/20 01:01 36.0 C L 69 22 128/59 L 98 04/29/20 00:35 36.0 C L 69 24 125/83 97 04/28/20 23:28 70 33 H 98
[2020-04-29] MEDS ORDERED: LORazepam 0.5 MG TAB PO PRN (12:25)
[2020-04-29] MEDS ORDERED: MoRPHine SULFATE 5 MG/0.25 ML UDP PO PRN (12:25)
[2020-04-29] MEDS ORDERED: ONDANSETRON 4 MG OD TAB SL PRN (12:25)
[2020-04-29] MEDS ORDERED: ATROPINE SULFATE 1% OP SOLN 2 ML BTL SL PRN (12:25)
[2020-04-29] MEDS ORDERED: GLYCOPYRROLATE 0.2 MG/ML VIAL IV PRN (12:25)
[2020-04-29] MEDS ORDERED: LORazepam 0.5 MG/1 ML VIAL IV PRN (12:25)
[2020-04-29] MEDS ORDERED: ACETAMINOPHEN 325 MG TAB PO PRN (12:25)
[2020-04-29] MEDS ORDERED: CHLORPROMAZINE HCL 25 MG TABLET PO PRN (12:25)
[2020-04-29] MEDS ORDERED: ONDANSETRON INJ 2 MG/ML 2 ML VIAL IV PRN (12:25)
[2020-04-29] MEDS: CHOLECALCIFEROL 1,000 UNITS 25 MCG TAB PO SCH (13:05)
[2020-04-29] MEDS: MAGNESIUM OXIDE 400 MG TAB PO SCH (13:05)
--- NOTE | 2020-04-29 14:04 | Pharmacy Report ---
Pharmacy Glycemic Short Note 2 - Date of Service April 29, 2020 - Glycemic Short BSG Results (Last 24 hours): 04/28/20 04/28/20 04/28/20 15:01 16:36 20:24 Glucose 213 H POC Glucose 193 H 156 H 04/29/20 04/29/20 04/29/20 04:19 07:28 11:36 Glucose 108 H POC Glucose 139 H 121 H OUTPATIENT ANTIDIABETIC REGIMEN: * Humulin 70/30 82 units with breakfast, 85 qpm, metformin 1000 mg qam, 500 qpm, insulin lispro 10 units with lunch * A1c 7.2% on 04/22 ASSESSMENT: 04/29 * BSGs improved yesterday ranging from 156-251, with 25 units of lantus * Fasting this AM 139, lunch 121- will continue current lantus * Renal function anticipated to worsen as patient does not want to undergo dialysis- may need to loosen insulin regimen, for now will loosen correction factor 04/27 * Ms. Abrahams insulin on hold yesterday secondary to hypoglycemia events with fasting and lunch BSGs, improved overnight into the 160s * Fasting this morning 165, was able to eat breakfast and lunch today with intermittent BiPAP * SCr continues to increase, cautious with basal administration as patient has been intermittently unable to eat * Patient's BSG was elevated at lunch, will continue to monitor for needed adjustments to novolog parameters PLAN FOR INPATIENT GLYCEMIC CONTROL: * Hold outpatient oral diabetes medications * Basal insulin * Lantus 14 units SQ this am; scale for PM 0-20 units * Bolus insulin * NovoLog per scale ACHS or Q6hrs while NPO * Goal Range: Low 120 mg/dL - High 160 mg/dL * Correction Factor: 25 mg/dL/unit * Nutritional / Prandial insulin per carb ratio of 1 unit per 6 grams CHO consumed PLAN FOR DISCHARGE: * A1c 7.2%, at goal * Patient is on 70/30 insulin at home, inpatient requirements have been less than half of outpatient regimen and anticipate patient needs may decrease with worsening renal function. * F/U with outpatient provider to scale back regimen/adjust goals as patient transitions with palliative care
[2020-04-29] MEDS ORDERED: TORSEMIDE 100 MG TAB PO ONE (15:30)
[2020-04-29] MEDS: allopurinoL 100 MG TAB PO SCH (18:08)
--- NOTE | 2020-04-29 22:47 | Hospitalist Progress Note ---
Date of Service April 29, 2020 Assessment & Plan (1) Acute respiratory distress: Patient continues to require BIPAP, but is on less now. transferred to [facility] on Comfort measures Goal is to be able to discharge home on Saturday on hospice. will keep antibiotics until then (2) Osteomyelitis of third toe of right foot: Diabetic foot ulcer/osteomyelitis- On daptomycin IV and aztreonam IV. will keep on antibiotics until Saturday Wound care consult (3) CHF (congestive heart failure): Acute on chronic diastolic CHF on admission CHF/atrial fibrillation/hypertension- Chest x-ray on admission suggestive of acute CHF. on bumex and chlothiazide. Continue diltiazem extended release 240 mg every morning, mag oxide 800 mg p.o. daily, potassium chloride 40 mEq p.o. every morning. Continue metoprolol succinate extended release 150 mg every morning. Continue Xarelto 15 mg p.o. HS COVID neg on admission Patient not making much urine. will monitor. ECHO with EF 50-55% and no changes noted from last ECHO on 11/10/19 (4) Chronic venous insufficiency: Will improve with diuretics as noted for CHF above Patient ultimately needs HD, she is now refusing. (5) Venous stasis dermatitis of both lower extremities: See above (6) Diabetic peripheral neuropathy associated with type 2 diabetes mellitus: Not on any direct treatment for peripheral neuropathy. Hold metformin. Hold insulin lispro. Continue Humulin 70/30 82 units subcu in the a.m. and 85 units subcu in the p.m. with holds SSI A1c 7.2 (7) PAD (peripheral artery disease): Continue Xarelto (8) Hyperlipidemia: Continue atorvastatin 40 mg daily (9) CKD (chronic kidney disease) stage 3, GFR 30-59 ml/min: Patient appears to be having acute kidney failure. now making more urine. appreciate nephro input. (10) COPD (chronic obstructive pulmonary disease): Duo nebs every 2 hours as needed (11) Atrial fibrillation: Continue Xarelto 15 mg p.o. daily. 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 will remain conditional code as family only recommended cardioversion (no CPR or other life saving methods) which will likely not come into play as she is moving to [facility]. Review of Systems Review of Systems: All systems reviewed & are unremarkable except as noted in HPI & below Physical Exam Physical Exam: Constitutional: WD/WN, vitals as above Eyes: normal visual figueroa by confrontation and + anicteric sclerae Neck: normal visual inspection and trachea midline Respiratory: normal respiratory effort, lungs clear to auscultation normal respiratory effort; no respiratory distress Auscultation: tight, decreased breath sounds Cardiovascular: Rate/Rhythm: regular rate and regular rhythm Extremities: + edema (improved) Gastrointestinal (Abdomen): Inspection/Auscultation: abdomen not distended Percussion/Palpation: abdomen soft; abdomen nontender Musculoskeletal: Head/Neck/Chest: normocephalic and head atraumatic Skin: + erythema (improved) Neurologic: awake; not confused Speech / Cognition: normal speech Psychiatric: confused. Results & Data Results & Data ([facility]) Vital Signs (Past 12 Hours) Vital Signs Temp Pulse Resp BP Pulse Ox 04/29/20 18:20 77 24 93 04/29/20 17:37 77 24 93 04/29/20 15:01 35.9 C L 71 23 94 04/29/20 15:00 71 22 94 04/29/20 14:46 35.9 C L 66 24 94 04/29/20 14:31 35.9 C L 70 17 93 04/29/20 14:16 35.9 C L 69 28 H 95 04/29/20 14:01 36.0 C L 74 30 H 135/70 96 04/29/20 14:00 36.0 C L 73 20 96 04/29/20 13:45 35.9 C L 74 29 H 96 04/29/20 13:30 35.9 C L 71 27 H 97 04/29/20 13:15 35.9 C L 75 30 H 97 08/14/20 13:02 35.9 C L 73 29 H 149/49 H 86 L 04/29/20 13:00 35.9 C L 73 27 H 82 L 04/29/20 12:45 35.9 C L 71 30 H 86 L 04/29/20 12:30 35.9 C L 71 20 95 04/29/20 12:01 35.9 C L 67 23 146/71 H 96 04/29/20 12:00 35.9 C L 74 17 95 04/29/20 11:30 35.9 C L 75 20 96 04/29/20 11:01 35.9 C L 69 17 156/69 H 95 04/29/20 11:00 35.8 C L 75 21 96 PG Care Time/CCT Total # of Minutes Spent Total Time Spent with Patient: Total time spent is greater than 50% in coordination of care (as documented) at patient's floor/unit and/or counseling patient: Coding Level of Care Code 07760 Subseq Hosp Care Lvl 2 Diagnoses Acute respiratory distress R06.03 Osteomyelitis of third toe of right foot M86.9 CHF (congestive heart failure) I50.9 Heart failure chronicity: chronic Heart failure type: unspecified Chronic venous insufficiency I87.2 Venous stasis dermatitis of both lower extremities I87.2 Diabetic peripheral neuropathy associated with type 2 diabetes mellitus E11.42 PAD (peripheral artery disease) I73.9 Hyperlipidemia E78.5 CKD (chronic kidney disease) stage 3, GFR 30-59 ml/min N18.3 COPD (chronic obstructive pulmonary disease) J44.9 Atrial fibrillation I48.91 Hypothyroidism E03.9 Depression with anxiety F41.8 Ear pain, right H92.01 Hematuria R31.9 (1) CHF (congestive heart failure) Heart failure chronicity: chronic Heart failure type: unspecified Qualified Code(s): I50.9 - Heart failure, unspecified
[2020-04-30] MEDS: NITROGLYCERIN 2% OINTMENT 30GM TUBE EXT SCH ×4 (01:31→19:20)
[2020-04-30] MEDS: LEVOTHYROXINE SODIUM 50 MCG TABLET PO SCH (05:33)
[2020-04-30] MEDS: dilTIAZem HCL 240 MG CAPCR PO SCH (08:25)
[2020-04-30] MEDS: APIXABAN 5 MG TABLET PO SCH ×2 (08:25→21:15)
[2020-04-30] MEDS: METOPROLOL SUCC 50MG EXT REL TAB PO SCH (08:25)
[2020-04-30] MEDS: TORSEMIDE 100 MG TAB PO SCH (08:26)
[2020-04-30] MEDS: NYSTATIN POWDER 15GM BTL EXT SCH ×3 (08:26→21:12)
[2020-04-30] MEDS: DOCUSATE SODIUM 100 MG CAP PO SCH ×2 (08:26→21:15)
[2020-04-30] MEDS: INSULIN GLARGINE SOLOSTAR 100 UNITS/ML 3 ML PEN SC SCH ×2 (09:16→21:13)
[2020-04-30] MEDS: INSULIN ASPART 100 UNITS/ML 3 ML PEN SC SCH ×4 (09:18→21:13)
--- NOTE | 2020-04-30 10:51 | Nephrology Progress Note ---
Date of Service April 30, 2020 Assessment & Plan (1) ERVIN (acute kidney injury): * Chart reviewed this morning. Patient remains on BiPAP therapy and has been transferred to medical floor for comfort measures. Plan is to discharge to home on hospice care * Continue oral Torsemide to promote diuresis * No further Nephrology evaluation indicated at this time. Will sign off. Please call if further assistance is needed (2) CKD (chronic kidney disease) stage 3, GFR 30-59 ml/min: * CKD due to diabetic nephropathy. Baseline Cr 1.1 Admission and Anticipated Discharge Date Admission Date: April 21, 2020 Results & Data ([facility]) Vital Signs (Past 12 Hours) Vital Signs Temp Pulse Pulse Resp BP Pulse Ox 04/30/20 08:01 35.6 C L 70 28 H 145/63 H 94 04/30/20 07:30 70 32 H 96 04/30/20 03:31 70 29 H 95 04/29/20 23:57 36.4 C L 71 18 164/71 H 94 04/29/20 22:58 69 27 H 94 PG Care Time/CCT Total # of Minutes Spent Total Time Spent with Patient: Total time spent is greater than 50% in coordination of care (as documented) at patient's floor/unit and/or counseling patient: Coding Level of Care Code 33446 Subseq Hosp Care Lvl 2 Diagnoses ERVIN (acute kidney injury) N17.9 CKD (chronic kidney disease) stage 3, GFR 30-59 ml/min N18.3
[2020-04-30] MEDS: DAPTOmycin 550 MG in SYRINGE 0 ML IV SCH (12:06)
[2020-04-30] MEDS: CHOLECALCIFEROL 1,000 UNITS 25 MCG TAB PO SCH (13:17)
[2020-04-30] MEDS: MAGNESIUM OXIDE 400 MG TAB PO SCH (13:18)
--- NOTE | 2020-04-30 14:54 | Hospitalist Progress Note ---
Date of Service April 30, 2020 Assessment & Plan (1) Acute respiratory distress: Patient continues to require BIPAP, but is on less now. - Transferred to [facility] on comfort measures. - Goal is to be able to discharge home on Saturday on hospice. - Will keep antibiotics until then. (2) Osteomyelitis of third toe of right foot: Diabetic foot ulcer/osteomyelitis. - On daptomycin IV - Will keep on antibiotics until Saturday - Wound care consulted (3) CHF (congestive heart failure): Acute on chronic diastolic CHF on admission. ECHO with EF 50-55% and no changes noted from last ECHO on 11/10/19. - Chest x-ray on admission suggestive of acute CHF. - On torsemide per nephrology. - Continue diltiazem & metoprolol - Continue apixaban (4) Diabetic peripheral neuropathy associated with type 2 diabetes mellitus: Not on any direct treatment for peripheral neuropathy. Hold metformin. Hold home insulin lispro. - Continue long-acting and sliding scale. - Sugars have been doing well in the last 24 hours. (5) CKD (chronic kidney disease) stage 3, GFR 30-59 ml/min: Patient appears to be having acute kidney failure. - Nephrology consulted - Signed off at this time. (6) COPD (chronic obstructive pulmonary disease): No wheezing on exam today. Remains on BiPap frequently. - DuoNebs Q2h PRN (7) Atrial fibrillation: HR stable at present at 70. - Continue beta-markos & calcium channel markos for rate-control - Continue apixaban for anticoagulation (8) Hypothyroidism: - Continue levothyroxine 50 mcg daily (9) Depression with anxiety: On no direct treatment at this time, however, resumption of some form of treatment may need to be considered by hospice. (10) Hematuria: Noted in [place] on 04/27 after some thrashing with earlier breathing issues and likely traumatic. - UA + for blood, leuk est, neg nitrites - Pt without urinary complaints today. - Resolved by my exam on 04/30. (11) DVT prophylaxis: SCDs - Holding heparin given comfort status Admission and Anticipated Discharge Date Admission Date: April 21, 2020 Subjective No complaints today. Denies shortness of breath. No pain. Reports no fevers/chills, chest pain, shortness of breath, abdominal pain, nausea, or vomiting. Physical Exam Constitutional: WD/WN, vitals as above Eyes: EOM intact bilaterally; no conjunctival abnormality ENMT: external ear and nose normal, oropharynx normal Neck: trachea midline, no thyromegaly normal visual inspection Respiratory: + labored breathing, + tachypneic and + prolonged expiratory phase; no respiratory distress and + not able to speak in complete sentence Auscultation: + diminished lung sounds Cardiovascular: RRR, no murmur, no edema Gastrointestinal (Abdomen): Inspection/Auscultation: abdomen normal to inspection; abdomen not distended Musculoskeletal: no cyanosis or clubbing, extremities motor strength 5/5 Skin: no rashes, warm and dry Neurologic: moves all extremities and awake Psychiatric: Orientation: alert, oriented to person and cooperative Results & Data Results & Data ([facility]) Vital Signs (Past 12 Hours) Vital Signs Temp Pulse Pulse Resp BP Pulse Ox 04/30/20 11:15 69 28 H 95 04/30/20 08:01 35.6 C L 70 28 H 145/63 H 94 04/30/20 07:30 70 32 H 96 04/30/20 03:31 70 29 H 95 PG Care Time/CCT Total # of Minutes Spent Total Time Spent with Patient: Total time spent is greater than 50% in coordination of care (as documented) at patient's floor/unit and/or counseling patient: Coding Level of Care Code 01783 Subseq Hosp Care Lvl 2 Diagnoses Acute respiratory distress R06.03 Osteomyelitis of third toe of right foot M86.9 CHF (congestive heart failure) I50.9 Heart failure chronicity: chronic Heart failure type: unspecified Diabetic peripheral neuropathy associated with type 2 diabetes mellitus E11.42 CKD (chronic kidney disease) stage 3, GFR 30-59 ml/min N18.3 COPD (chronic obstructive pulmonary disease) J44.9 Atrial fibrillation I48.91 Hypothyroidism E03.9 Depression with anxiety F41.8 Hematuria R31.9 DVT prophylaxis Z29.9 (1) CHF (congestive heart failure) Heart failure chronicity: chronic Heart failure type: unspecified Qualified Code(s): I50.9 - Heart failure, unspecified
[2020-04-30] MEDS: allopurinoL 100 MG TAB PO SCH (18:06)
[2020-05-01] MEDS: NITROGLYCERIN 2% OINTMENT 30GM TUBE EXT SCH ×4 (01:08→18:16)
[2020-05-01] MEDS: LEVOTHYROXINE SODIUM 50 MCG TABLET PO SCH (05:40)
[2020-05-01 06:58] LABS: Creatinine Clr Calc Pharmacy 20.5 ml/min; Est GFR (African American) 14.6; Est GFR (Non-African American) 12.6
[2020-05-01] MEDS: APIXABAN 5 MG TABLET PO SCH ×2 (09:21→21:08)
[2020-05-01] MEDS: TORSEMIDE 100 MG TAB PO SCH (09:21)
[2020-05-01] MEDS: NYSTATIN POWDER 15GM BTL EXT SCH ×3 (09:21→21:08)
[2020-05-01] MEDS: INSULIN ASPART 100 UNITS/ML 3 ML PEN SC SCH ×4 (09:24→21:13)
[2020-05-01] MEDS: INSULIN GLARGINE SOLOSTAR 100 UNITS/ML 3 ML PEN SC SCH ×2 (09:25→21:09)
[2020-05-01] MEDS: dilTIAZem HCL 240 MG CAPCR PO SCH (09:28)
[2020-05-01] MEDS: METOPROLOL SUCC 50MG EXT REL TAB PO SCH (09:28)
[2020-05-01] MEDS: DOCUSATE SODIUM 100 MG CAP PO SCH ×2 (09:33→21:08)
[2020-05-01] MEDS: MAGNESIUM OXIDE 400 MG TAB PO SCH (11:40)
[2020-05-01] MEDS: CHOLECALCIFEROL 1,000 UNITS 25 MCG TAB PO SCH (11:40)
--- NOTE | 2020-05-01 15:18 | Palliative Care Consultation ---
Date of Consultation May 01, 2020 Assessment & Plan (1) Goals of care, counseling/discussion: The patient is an unfortunate 74 y/o female who presented to the [facility] with feeling unwell, tearful and anxious. She has an additional PMH that includes chronic venous stasis dermatitis of bilateral lower extremities, CHF, COPD, CKD stage III, morbid obesity, DM2 s/p peripheral neuropathy, HTN, Endometrial CA, PAD, depression with anxiety, HLD, JACKIE, A-fib and hypothyroidism. She has osteomyelitis on her right foot that has been managed at the wound clinic as an outpatient and now she is receiving IV Daptomycin. Ultimately, her condition worsened, including her breathing, requiring BiPAP. Additionally, her renal function has declined with a creatinine of 3.4. An ECHO was obtained, unchanged from October 2019 (EF 50-55%) Palliative Care was consulted to discuss goals of care. -I met with the patient in room 381-1. The patients niece, Joana, was at her bedside. -The patient was sitting upright in her bed, using accessory muscles to breathe, diaphragmatic breathing noted. -Multiple conversations have been held to date with the hospitalist and geriatric case manager with the patient and her , Ruy, regarding goals of care. Ultimately, the patient has worsening respiratory failure, cardiac disease, and renal failure leading towards dialysis. She has been clear that she did NOT want to pursue hemodialysis. She does understand the deterioration and eventual without dialysis. -There appeared to be miscommunication between Ruy and the patient regarding her overall goals. Ruy requested PT/OT and the patient discussed going home with hospice. -We called Ruy while I was in the room and discussed together, with Joana in the room. -We discussed code status and the patient indicated she would not want resuscitated should her heart stop or she stop breathing. Will change patient to DNR/DNI in the computer to reflect the conversation. -We discussed the the option of her returning home and the efforts that it would take from a caregiver standpoint. Per Joana, Ruy has some intellect challenges and she, the patient and all agree home is NOT a good discharge plan for her. -We discussed a SNF with PT/OT and I explained that any slight movement causes the patient to become increasingly SOB and as she has little reserve, rehab would not set the patient up with success. -We discussed a SNF with Hospice services in place and the patient agreed to this, along with the patients niece. The patients did say that he is in support of this, but has concerns regarding the financial obligations. I e xpressed that case management and [facility] (Where she has been accepted) would work with the patient to determine resources, etc. -We discussed a POLST form, but the patient did not want to sign it because she was too shaky. She wants her to sign it. -POLST form reflects DNR/DNI, QUANTITY SURVEYOR, trial abx and no artificial nutrition, but does need signed. -The said that he did want to talk to his one more time tomorrow, with me, before signing the POLST. -The patient was winded while we were talking, we did discuss BiPAP and she indicated that she did not like wearing the BiPAP. She drifted to sleep once or twice during our visit. -She did state twice that she did not want to wear the Bipap tonight. I did explain the possible ramifications with this. I will place a Roxanol order if needed this evening. I did explain this to the patient with the patients niece at the bedside. -I discussed the above with the hospitalist Dr. Marie and the geriatric case manager, Sue Ontiveros RN. -I will follow again tomorrow when the patients is here. I did advise Sue that it appears the goals will be alligned, with [facility]. Anticipate having sign POLST tomorrow. -PPS: 20% (2) Acute respiratory distress: (3) CHF (congestive heart failure): Heart failure chronicity: chronic Heart failure type: unspecified Qualified Code(s): I50.9 - Heart failure, unspecified (4) Chronic venous insufficiency: (5) Obstructive sleep apnea: (6) CKD (chronic kidney disease) stage 3, GFR 30-59 ml/min: History of Present Illness Reason for Consultation: Goals of Care Requesting Physician: Dr. Walsh Attending Physician: Mikal Marie MD History of Present Illness The patient is an unfortunate 74 y/o female who presented to the [facility] with feeling unwell, tearful and anxious. She has an additional PMH that includes chronic venous stasis dermatitis of bilateral lower extremities, CHF, COPD, CKD stage III, morbid obesity, DM2 s/p peripheral neuropathy, HTN, Endometrial CA, PAD, depression with anxiety, HLD, JACKIE, A-fib and hypothyroidism. She has osteomyelitis on her right foot that has been managed at the wound clinic as an outpatient. Ultimately, her condition worsened, including her breathing, requiring BiPAP. Palliative Care was consulted to discuss goals of care. Please see A/P for further details. Thank you for involving Palliative Care with this patient. We will follow. Allergies Allergy/AdvReac Type Severity Reaction Status Date / Time Penicillins Allergy Intermediate HIVES Verified 04/21/20 19:35 mineral oil Allergy Unknown Verified 04/21/20 19:35 metronidazole AdvReac Unknown NAUSEA Verified 04/21/20 19:35 ceresin [From Eucerin] AdvReac Redness of Verified 04/21/20 19:35 Skin emollient combination no.33 AdvReac Redness of Verified 04/21/20 19:35 [From Eucerin] Skin isopropyl myristate AdvReac Redness of Verified 04/21/20 19:35 [From Eucerin] Skin lanolin alcohols AdvReac Redness of Verified 04/21/20 19:35 [From Eucerin] Skin mineral oil [From Eucerin] AdvReac Redness of Verified 04/21/20 19:35 Skin soap [From Eucerin] AdvReac Redness of Verified 04/21/20 19:35 Skin water [From Eucerin] AdvReac Redness of Verified 04/21/20 19:35 Skin Home Medications Home Medications Medication Instructions Recorded Confirmed Type acetaminophen [Tylenol Extra 500 mg PO Q4H PRN 09/18/18 04/21/20 History Strength] cholecalciferol (vitamin D3) 2,000 units PO DAILY@1200 09/18/18 04/21/20 History [Vitamin D3] Oxygen Home #1 ea 04/03/19 03/22/20 History albuterol sulfate 2.5 mg INHALATION Q4 PRN ml 04/24/19 04/21/20 History albuterol sulfate 90 mcg/actuation 1 - 2 puff INHALATION Q4H PRN #18 09/01/19 04/21/20 Rx aerosol inhaler gm magnesium oxide 800 mg PO DAILY@1200 tab 10/27/19 04/21/20 History pen needle, diabetic 29 gauge x #200 ea 12/23/19 03/22/20 Rx 1/2" allopurinol 100 mg tablet 100 mg PO DAILY@1800 #90 tab 02/26/20 04/21/20 Rx atorvastatin 40 mg tablet 40 mg PO DAILY #90 tab 02/26/20 04/21/20 Rx bumetanide 1 mg tablet See Rx Instructions PO BID tab 02/26/20 04/21/20 History diltiazem HCl 240 mg 240 mg PO QAM #90 cap 02/26/20 04/21/20 Rx capsule,extended release 24 hr insulin lispro 100 unit/mL 10 units SUBCUT DAILY@1200 ml 02/26/20 04/21/20 History subcutaneous pen levothyroxine 50 mcg tablet 50 mcg PO QAM #90 tab 02/26/20 04/21/20 Rx metformin 500 mg tablet See Rx Instructions .ROUTE 02/26/20 04/21/20 Rx .COMPLEX #270 tablet metoprolol succinate 100 mg 150 mg PO QAM #90 tab 02/26/20 04/21/20 Rx tablet,extended release 24 hr potassium chloride 20 mEq 40 meq PO QAM #180 tab 02/26/20 04/21/20 Rx tablet,extended release(part/cryst) rivaroxaban 15 mg tablet 15 mg PO QPM #90 tab 02/26/20 04/21/20 Rx lidocaine 1 patch TOP DAILY PRN #15 ea 03/08/20 04/21/20 Rx blood sugar diagnostic See Rx Instructions .ROUTE 04/07/20 04/13/20 Rx .COMPLEX #100 strip insulin NPH-regular 70-30 U-100 82 unit SUBCUT QAM #160 ml 04/07/20 04/21/20 Rx insulin 100 unit/mL subcutaneous pen insulin NPH and regular human 85 unit SUBCUT QPM 04/21/20 04/21/20 History [Humulin 70/30 U-100 KwikPen] nystatin [Nystop] 1 applic TOPICAL TID 04/21/20 04/21/20 History Patient History Medical History Acquired claw toe of left foot Acquired claw toe of right foot Atrial flutter Basal cell carcinoma, face Bilateral swelling of feet Callus DM (diabetes mellitus), type 2 Hypertension Hypertension Pleural effusion Sciatica Surgical History Hx of salpingo-oophorectomy, bilateral S/P hysterectomy S/P Mohs surgery for basal cell carcinoma S/P thoracentesis Family History Father Coronary heart disease Myocardial infarction Mother Alzheimer disease Denies family history of Ovarian cancer Prostate cancer Breast cancer Colorectal cancer Social History Smoking Status: Never smoker Second Hand Exposure: No; Hx Alcohol Use: No Hx Substance Use: No Preferred Language: Chinese Communication Ability: Effective Visual Impairment: Limited Tester Regulator Required: No Beliefs That Will Affect Care: None marital status: Current Living Situation: Spouse current occupational status: retired How many Children do You have: 0 Feels Safe at Home: Yes Dental Care, Regularly: Yes Physical Activity Frequency: 1-2 Times per Week Sunscreen Use: No Review of Systems Review of Systems: General: Pt denies overall pain, but says she is tired. HEENT: Pt denies ESCALANTE, dizziness, visual changes CV: Pt denies chest pain Resp: Pt reports feeling SOB at rest GI: Pt reports loss of appetite and desire to eat. Pt denies abdominal pain, N/V/D Psych: Pt states she feels depressed Physical Exam Constitutional: + acute distress, + ill appearing, + lethargic and + overweight Eyes: PERRL, conjunctivae normal, anicteric sclerae Neck: + short neck and + thick neck Respiratory: + respiratory distress, + uses accessory muscles and + cough; + not able to speak in complete sentence Auscultation: + diminished lung sounds and + rhonchi Cardiovascular: Rate/Rhythm: regular rate and regular rhythm Heart Sounds: normal S1 and normal S2 Extremities: normal capillary refill and + pedal edema Gastrointestinal (Abdomen): Inspection/Auscultation: + abdomen distended Percussion/Palpation: abdomen soft Psychiatric: Orientation: alert, oriented x 3 and cooperative Eye Contact: + fair eye contact Mood: + depressed mood Results & Data ([facility]) Vital Signs (Past 12 Hours) Vital Signs Temp Pulse Pulse Resp BP Pulse Ox 05/01/20 09:34 63 136/63 97 05/01/20 07:40 59 L 19 98 05/01/20 06:55 36.4 C L 64 21 158/64 H 99 PG Care Time/CCT Total # of Minutes Spent Total Time Spent with Patient: Total time spent is greater than 50% in coordination of care (as documented) at patient's floor/unit and/or counseling patient: 70 Coding Level of Care Code 23140 Inpt Consult Level 3 Diagnoses Goals of care, counseling/discussion Z71.89 Acute respiratory distress R06.03 CHF (congestive heart failure) I50.9 Heart failure chronicity: chronic Heart failure type: unspecified Chronic venous insufficiency I87.2 Obstructive sleep apnea G47.33 CKD (chronic kidney disease) stage 3, GFR 30-59 ml/min N18.3 Time Spent (min) 70 Time Spent Midlevel Total time spent 70 minutes with > 50% of that time spent assessing the patient, discussing goals of care with the patient and family, all while discussing with IDT
--- NOTE | 2020-05-01 15:55 | Hospitalist Progress Note ---
Date of Service May 01, 2020 Assessment & Plan (1) Goals of care, counseling/discussion: Multiple notes from prior providers indicate the patient moved to comfort care from the ICU due to worsening kidney function and long-standing desire to never be on hemodialysis. Discussed with patient and on 05/01, and both in agreement she would never want HD. She also says she would not want any labs drawn for kidney function or other issues. She wants to go home. Her says this is not possible in her current state and requests physical therapy and possibly short rehab stay which she could not get if she goes on hospice. - Discussed with palliative today. - PT/OT to assess current status (2) Acute respiratory distress: Patient continues to require BIPAP, but is on less now. Sometimes on 6L NC. - Transferred to [facility] on comfort measures. - Goal was to be able to discharge home on Saturday on hospice; now patient and asking about rehab. - PT/OT - Palliative care. (3) Osteomyelitis of third toe of right foot: Diabetic foot ulcer/osteomyelitis. - On daptomycin IV - Will keep on antibiotics while hospitalized. - Wound care consulted (4) CHF (congestive heart failure): Acute on chronic diastolic CHF on admission. ECHO with EF 50-55% and no changes noted from last ECHO on 11/10/19. - Chest x-ray on admission and repeat on 04/28 suggestive of acute CHF. - On torsemide per nephrology. - Continue diltiazem & metoprolol - Continue apixaban (5) Diabetic peripheral neuropathy associated with type 2 diabetes mellitus: Not on any direct treatment for peripheral neuropathy. Hold metformin. Hold home insulin lispro. - Continue long-acting and sliding scale. - Sugars have been doing well in the last 24 hours: 125 - 200. (6) CKD (chronic kidney disease) stage 3, GFR 30-59 ml/min: Patient appears to be having acute kidney failure. - Nephrology consulted - Signed off at this time due to comfort measures. - Cr was accidentally drawn today: now 3.4. (7) COPD (chronic obstructive pulmonary disease): No wheezing on exam today. Remains on BiPap frequently. - DuoNebs Q2h PRN (8) Atrial fibrillation: HR stable at present at 60. - Continue beta-markos & calcium channel markos for rate-control - Continue apixaban for anticoagulation (9) Hypothyroidism: - Continue levothyroxine 50 mcg daily (10) Depression with anxiety: On no direct treatment at this time, however, resumption of some form of treatment may need to be considered by hospice. (11) Hematuria: Noted in [place] on 04/27 after some thrashing with earlier breathing issues and likely traumatic. - UA + for blood, leuk est, neg nitrites - Pt without urinary complaints today. - Resolved by my exam on 04/30. (12) DVT prophylaxis: SCDs - Holding heparin given comfort status Admission and Anticipated Discharge Date Admission Date: April 21, 2020 Subjective Is frustrated today and says she's not seen a doctor and doesn't know what is going on. I spent considerable time speaking with her and her regarding difficult decisions in regards to heart, lungs, and kidneys. She denies shortness of breath today. Physical Exam Constitutional: WD/WN, vitals as above Eyes: EOM intact bilaterally; no conjunctival abnormality ENMT: external ear and nose normal, oropharynx normal Neck: trachea midline, no thyromegaly normal visual inspection Respiratory: + labored breathing, + tachypneic and + prolonged expiratory phase; no respiratory distress and + not able to speak in complete sentence Auscultation: + diminished lung sounds Cardiovascular: RRR, no murmur, no edema Gastrointestinal (Abdomen): Inspection/Auscultation: abdomen normal to inspection; abdomen not distended Musculoskeletal: no cyanosis or clubbing, extremities motor strength 5/5 Skin: no rashes, warm and dry Neurologic: moves all extremities and awake Psychiatric: Orientation: alert, oriented to person and cooperative Results & Data Results & Data ([facility]) Vital Signs (Past 12 Hours) Vital Signs Temp Pulse Pulse Resp BP Pulse Ox 05/01/20 09:34 63 136/63 97 05/01/20 07:40 59 L 19 98 05/01/20 06:55 36.4 C L 64 21 158/64 H 99 PG Care Time/CCT Total # of Minutes Spent Total Time Spent with Patient: Total time spent is greater than 50% in coordi nation of care (as documented) at patient's floor/unit and/or counseling patient: Coding Level of Care Code 95777 Subseq Hosp Care Lvl 3 Diagnoses Goals of care, counseling/discussion Z71.89 Acute respiratory distress R06.03 Osteomyelitis of third toe of right foot M86.9 CHF (congestive heart failure) I50.9 Heart failure chronicity: chronic Heart failure type: unspecified Diabetic peripheral neuropathy associated with type 2 diabetes mellitus E11.42 CKD (chronic kidney disease) stage 3, GFR 30-59 ml/min N18.3 COPD (chronic obstructive pulmonary disease) J44.9 Atrial fibrillation I48.91 Hypothyroidism E03.9 Depression with anxiety F41.8 Hematuria R31.9 DVT prophylaxis Z29.9 (1) CHF (congestive heart failure) Heart failure chronicity: chronic Heart failure type: unspecified Qualified Code(s): I50.9 - Heart failure, unspecified
[2020-05-01] MEDS: ALBUT/IPRATROP 3MG/0.5MG NEB 3 ML VIAL NEB PRN (17:12)
[2020-05-01] MEDS: ONDANSETRON INJ 2 MG/ML 2 ML VIAL IV PRN (17:58)
[2020-05-01] MEDS: allopurinoL 100 MG TAB PO SCH (18:16)
[2020-05-02] MEDS: NITROGLYCERIN 2% OINTMENT 30GM TUBE EXT SCH ×4 (01:22→18:52)
[2020-05-02] MEDS: LEVOTHYROXINE SODIUM 50 MCG TABLET PO SCH (06:20)
[2020-05-02] MEDS: APIXABAN 5 MG TABLET PO SCH ×2 (08:45→20:57)
[2020-05-02] MEDS: METOPROLOL SUCC 50MG EXT REL TAB PO SCH (08:45)
[2020-05-02] MEDS: dilTIAZem HCL 240 MG CAPCR PO SCH (08:46)
[2020-05-02] MEDS: NYSTATIN POWDER 15GM BTL EXT SCH ×3 (08:46→20:56)
[2020-05-02] MEDS: TORSEMIDE 100 MG TAB PO SCH (08:46)
[2020-05-02] MEDS: INSULIN GLARGINE SOLOSTAR 100 UNITS/ML 3 ML PEN SC SCH ×2 (08:50→20:55)
[2020-05-02] MEDS: INSULIN ASPART 100 UNITS/ML 3 ML PEN SC SCH ×4 (08:53→20:54)
[2020-05-02] MEDS: DOCUSATE SODIUM 100 MG CAP PO SCH ×2 (08:58→20:57)
--- NOTE | 2020-05-02 09:54 | Pharmacy Report ---
Glycemic Control Progress Note - Date of Service May 02, 2020 - Scope Glycemic Pharmacist consulted for glycemic control to write orders per [facility] inpatient glycemic control protocol. - Objective Accuchecks BSG(last 24 hours):: 05/01/20 05/01/20 05/01/20 12:00 17:25 20:55 POC Glucose 172 H 137 H 158 H 05/02/20 08:38 POC Glucose 164 H HbA1c:: Hemoglobin A1c 7.2 % (4.5-5.6) H 04/22/20 01:37 - Recent Pertinent Medications The patient is currently receiving: * Basal insulin: Lantus 14 units in the morning and 20 units in the evening * Correctional Insulin: Novolog Correction per scale ACHS Goal Range: Low 120 mg/dL - High 160 mg/dL Correction Factor: 25 mg/dL/unit * Prandial insulin: Per carb ratio of 1 unit per 6 grams CHO consumed - Outpatient Anti-Diabetic Meds Novolin 70/30 -- 82 units in the morning and 85 units in the evening Humalog 10 units with lunch metformin 1000 mg PO qAM and 500 mg PO qPM - Assessment & Plan ASSESSMENT: * See progress note from 04/27/20 for more background info, in short: * Pt receiving SQ basal bolus insulin regimen for hyperglycemia secondary to baseline DM (outpatient regimen on hold) and infection (currently on IV Daptomycin) * Patient is currently receiving an average of 45 units of insulin per day * 34 units of basal insulin * 11 units of prandial/correctional insulin * BSGs ranging 125 - 172 mg/dl over the past 24hrs * Changes needed to insulin regimen: * AM Fasting BSG = 164 mg/dl. This is above goal range for patient based on inpatient targets and co-morbidities. The patient has been receiving 34 units of basal insulin x 3 days and fasting has been 139-146-125 mg/dL. Fasting BSG was an abnormality and will continue current basal rate. If fasting BSGs continue to be elevated will increase. * Post-prandial BSGs are in range therefore no changes needed to CF/CR. * Total daily dose = ~45-50 units. * Additional notes / comments: continue to hold metformin PLAN FOR INPATIENT GLYCEMIC CONTROL: * Continuing Lantus 14 units SQ in the AM and 20 units in the PM * Continuing correction factor of 25 mg/dl/unit * Continuing carb ratio of 1 unit per 6 grams CHO consumed * Continuing goal range of Low 120 mg/dL - High 160 mg/dL RECOMMENDATIONS FOR DISCHARGE: * Recommend d/c of metformin due to kidney function * Recommend Lantus 17 units SQ BID with Novolog 4 units with smaller meals (<30 grams of carbohydrates) and 8 units with larger meals (~50 grams of carbohydrates) * recommend CF of 1 units per 25 over 160 mg/dL * recommend d/c of mixed insulin as difficult to titrate Thank you.
--- NOTE | 2020-05-02 11:14 | Palliative Care Progress Note ---
Date of Service May 02, 2020 Assessment & Plan (1) Goals of care, counseling/discussion: The patient is an unfortunate 74 y/o female who presented to the [facility] with feeling unwell, tearful and anxious. She has an additional PMH that includes chronic venous stasis dermatitis of bilateral lower extremities, CHF, COPD, CKD stage III, morbid obesity, DM2 s/p peripheral neuropathy, HTN, Endometrial CA, PAD, depression with anxiety, HLD, JACKIE, A-fib and hypothyroidism. She has osteomyelitis on her right foot that has been managed at the wound clinic as an outpatient and now she is receiving IV Daptomycin. Ultimately, her condition worsened, including her breathing, requiring BiPAP. Additionally, her renal function has declined with a creatinine of 3.4. An ECHO was obtained, unchanged from October 2019 (EF 50-55%) Palliative Care was consulted to discuss goals of care. -I met with the patient in room 381-1. The patients , Colton, was at the bedside. -The patient was sitting upright in her bed, using accessory muscles to breathe, diaphragmatic breathing noted. -Multiple conversations have been held to date with the hospitalist and case management associate with the patient and her , Colton, regarding goals of care. Ultimately, the patient has worsening respiratory failure, cardiac disease, and renal failure leading towards dialysis. She has been clear that she did NOT want to pursue hemodialysis. She does understand the deterioration and eventual without dialysis. -Continued conversation from yesterday, including options regarding PT/OT vs Hospice. PT/OT was in the room when we were there and the patient was markedly winded with the most minimal movement. After discussion, agreed that we would transition her to [facility] today and transition to Hospice once there. PT/OT orders to be canceled. -We discussed a POLST form, but the patient did not want to sign it because she was too shaky. She wants her to sign it, which he did. -POLST form reflects DNR/DNI, HEALTH ADVISOR, trial abx and no artificial nutrition. -Amanda Amos RN case manager came into the room and we confirmed the above. -The patient was winded while we were talking, we did discuss BiPAP and she indicated that she did not like wearing the BiPAP and does have some nasal brid ge skin breakdown from the BiPAP mask. Agreed to no BiPAP [facility]. -I placed a Roxanol order 5mg SL Q3 PRN for SOB or pain. -I discussed the above with the hospitalist Dr. Marie and the case management associate. -Expect life expectancy to be days to a few weeks, since she has decided to forgo BiPAP and Hemodialysis. -PPS: 20% (2) Acute respiratory distress: (3) CHF (congestive heart failure): (4) Chronic venous insufficiency: (5) Obstructive sleep apnea: (6) CKD (chronic kidney disease) stage 3, GFR 30-59 ml/min: Admission and Anticipated Discharge Date Admission Date: April 21, 2020 Subjective Pt met in room, colton at the bedside. Pt uses accessory muscles for breathing she did go on BiPAP overnight for a short amount of time. See A/P for further details Review of Systems Review of Systems: General: Pt denies overall pain, but says she is tired. HEENT: Pt denies ESCALANTE, dizziness, visual changes CV: Pt denies chest pain Resp: Pt reports feeling SOB at rest GI: Pt reports loss of appetite and desire to eat. Pt denies abdominal pain, N/V/D Psych: Pt states she feels depressed Physical Exam Constitutional: + acute distress, + ill appearing, + lethargic and + overweight Eyes: PERRL, conjunctivae normal, anicteric sclerae Neck: + short neck and + thick neck Respiratory: + respiratory distress, + uses accessory muscles and + cough; + not able to speak in complete sentence Auscultation: + diminished lung sounds and + rhonchi Cardiovascular: Rate/Rhythm: regular rate and regular rhythm Heart Sounds: normal S1 and normal S2 Extremities: normal capillary refill and + pedal edema Gastrointestinal (Abdomen): Inspection/Auscultation: + abdomen distended Percussion/Palpation: abdomen soft Psychiatric: Orientation: alert, oriented x 3 and cooperative Eye Contact: + fair eye contact Mood: + depressed mood Results & Data ([facility]) Vital Signs (Past 12 Hours) Vital Signs Temp Pulse Pulse Resp BP Pulse Ox 05/02/20 07:33 36.3 C L 63 16 132/62 95 05/02/20 04:02 62 19 93 05/01/20 23:38 36.4 C L 65 18 141/64 H 95 PG Care Time/CCT Total # of Minutes Spent Total Time Spent with Patient: Total time spent is greater than 50% in coordination of care (as documented) at patient's floor/unit and/or counseling patient: 65 Coding Level of Care Code 51898 Subseq Hosp Care Lvl 3 Diagnoses Goals of care, counseling/discussion Z71.89 Acute respiratory distress R06.03 CHF (congestive heart failure) I50.9 Heart failure chronicity: chronic Heart failure type: unspecified Chronic venous insufficiency I87.2 Obstructive sleep apnea G47.33 CKD (chronic kidney disease) stage 3, GFR 30-59 ml/min N18.3 Time Spent (min) 65 Time Spent Midlevel Total time spent 65 minutes with > 50% of that time spent assessing the patient, discussing goals of care with pt, family and IDT, all while ordering symptom management meds and completing a POLST form. (1) CHF (congestive heart failure) Heart failure chronicity: chronic Heart failure type: unspecified Qualified Code(s): I50.9 - Heart failure, unspecified
[2020-05-02] MEDS: CHOLECALCIFEROL 1,000 UNITS 25 MCG TAB PO SCH (11:39)
[2020-05-02] MEDS: DAPTOmycin 550 MG in SYRINGE 0 ML IV SCH (11:39)
[2020-05-02] MEDS: MAGNESIUM OXIDE 400 MG TAB PO SCH (11:39)
[2020-05-02] MEDS ORDERED: MoRPHine SULFATE 2 MG/ML CARP IV PRN (12:05)
--- NOTE | 2020-05-02 15:18 | Hospitalist Progress Note ---
Date of Service May 02, 2020 Assessment & Plan (1) Goals of care, counseling/discussion: Multiple notes from prior providers indicate the patient moved to comfort care from the ICU due to worsening kidney function and long-standing desire to never be on hemodialysis. Discussed with patient and on 05/01, and both in agreement she would never want HD. She also says she would not want any labs drawn for kidney function or other issues. She wants to go home. Her says this is not possible in her current state and requests physical therapy and possibly short rehab stay which she could not get if she goes on hospice. - Discussed with palliative today. - PT/OT to assess current status -> Not even able to move arms without shortness of breath. Patient and in agreement with hospice. (2) Acute respiratory distress: Patient continues to require BIPAP, but is on less now. Sometimes on 6L NC. - Transferred to [facility] on comfort measures. - Goal was to be able to discharge home on Saturday on hospice; now patient and asking about rehab. - PT/OT - Palliative care. (3) Osteomyelitis of third toe of right foot: Diabetic foot ulcer/osteomyelitis. - On daptomycin IV - Will keep on antibiotics while hospitalized. - Wound care consulted (4) CHF (congestive heart failure): Acute on chronic diastolic CHF on admission. ECHO with EF 50-55% and no changes noted from last ECHO on 11/10/19. - Chest x-ray on admission and repeat on 04/28 suggestive of acute CHF. - On torsemide per nephrology. - Continue diltiazem & metoprolol - Continue apixaban (5) Diabetic peripheral neuropathy associated with type 2 diabetes mellitus: Not on any direct treatment for peripheral neuropathy. Hold metformin. Hold home insulin lispro. - Continue long-acting and sliding scale. - Sugars have been doing well in the last 24 hours: 125 - 200. (6) CKD (chronic kidney disease) stage 3, GFR 30-59 ml/min: Patient appears to be having acute kidney failure. - Nephrology consulted - Signed off at this time due to comfort measures. - Cr was accidentally drawn today: now 3.4. (7) COPD (chronic obstructive pulmonary disease): No wheezing on exam today. Remains on BiPap frequently. - DuoNebs Q2h PRN (8) Atrial fibrillation: HR stable at present at 60. - Continue beta-markos & calcium channel markos for rate-control - Continue apixaban for anticoagulation (9) Hypothyroidism: - Continue levothyroxine 50 mcg daily (10) Depression with anxiety: On no direct treatment at this time, however, resumption of some form of treatment may need to be considered by hospice. (11) Hematuria: Noted in [place] on 04/27 after some thrashing with earlier breathing issues and likely traumatic. - UA + for blood, leuk est, neg nitrites - Pt without urinary complaints today. - Resolved by my exam on 04/30. (12) DVT prophylaxis: SCDs - Holding heparin given comfort status Admission and Anticipated Discharge Date Admission Date: April 21, 2020 Subjective Has shortness of breath today. Feels too hot. Reports no fevers/chills, chest pain, abdominal pain, nausea, or vomiting. Physical Exam Constitutional: WD/WN, vitals as above Eyes: EOM intact bilaterally; no conjunctival abnormality ENMT: external ear and nose normal, oropharynx normal Neck: trachea midline, no thyromegaly normal visual inspection Respiratory: + labored breathing, + tachypneic and + prolonged expiratory phase; no respiratory distress and + not able to speak in complete sentence Auscultation: + diminished lung sounds Cardiovascular: RRR, no murmur, no edema Gastrointestinal (Abdomen): Inspection/Auscultation: abdomen normal to inspection; abdomen not distended Musculoskeletal: no cyanosis or clubbing, extremities motor strength 5/5 Skin: no rashes, warm and dry Neurologic: moves all extremities and awake Psychiatric: Orientation: alert, oriented to person and cooperative Results & Data Results & Data ([facility]) Vital Signs (Past 12 Hours) Vital Signs Temp Pulse Pulse Resp BP Pulse Ox 05/02/20 07:33 36.3 C L 63 16 132/62 95 05/02/20 04:02 62 19 93 PG Care Time/CCT Total # of Minutes Spent Total Time Spent with Patient: Total time spent is greater than 50% in coordination of care (as documented) at patient's floor/unit and/or counseling patient: Coding Level of Care Code 98308 Subseq Hosp Care Lvl 2 Diagnoses Goals of care, counseling/discussion Z71.89 Acute respiratory distress R06.03 Osteomyelitis of third toe of right foot M86.9 CHF (congestive heart failure) I50.9 Heart failure chronicity: chronic Heart failure type: unspecified Diabetic peripheral neuropathy associated with type 2 diabetes mellitus E11.42 CKD (chronic kidney disease) stage 3, GFR 30-59 ml/min N18.3 COPD (chronic obstructive pulmonary disease) J44.9 Atrial fibrillation I48.91 Hypothyroidism E03.9 Depression with anxiety F41.8 Hematuria R31.9 DVT prophylaxis Z29.9 (1) CHF (congestive heart failure) Heart failure chronicity: chronic Heart failure type: unspecified Qualified Code(s): I50.9 - Heart failure, unspecified
[2020-05-02] MEDS: allopurinoL 100 MG TAB PO SCH (18:58)
[2020-05-03] MEDS: NITROGLYCERIN 2% OINTMENT 30GM TUBE EXT SCH ×3 (01:24→12:51)
[2020-05-03] MEDS: LEVOTHYROXINE SODIUM 50 MCG TABLET PO SCH (06:04)
[2020-05-03] MEDS: ALBUT/IPRATROP 3MG/0.5MG NEB 3 ML VIAL NEB PRN ×3 (07:16→17:06)
[2020-05-03 08:18] VITALS: TEMP 97.7
[2020-05-03] MEDS: NYSTATIN POWDER 15GM BTL EXT SCH ×2 (09:29→12:51)
[2020-05-03] MEDS: TORSEMIDE 100 MG TAB PO SCH (09:29)
[2020-05-03] MEDS: APIXABAN 5 MG TABLET PO SCH (09:30)
[2020-05-03] MEDS: METOPROLOL SUCC 50MG EXT REL TAB PO SCH (09:33)
[2020-05-03] MEDS: dilTIAZem HCL 240 MG CAPCR PO SCH (09:33)
[2020-05-03] MEDS: INSULIN GLARGINE SOLOSTAR 100 UNITS/ML 3 ML PEN SC SCH (09:37)
[2020-05-03] MEDS: INSULIN ASPART 100 UNITS/ML 3 ML PEN SC SCH ×2 (09:38→12:59)
[2020-05-03] MEDS: MoRPHine SULFATE 5 MG/0.25 ML UDP PO PRN ×2 (09:43→14:47)
[2020-05-03] MEDS: DOCUSATE SODIUM 100 MG CAP PO SCH (09:43)
[2020-05-03] MEDS: CHOLECALCIFEROL 1,000 UNITS 25 MCG TAB PO SCH (11:55)
[2020-05-03] MEDS: MAGNESIUM OXIDE 400 MG TAB PO SCH (11:55)
[2020-05-03 13:31] VITALS: BP 164/67
[2020-05-03 17:07] VITALS: PULSE 57; O2SAT 93
--- NOTE | 2020-05-03 18:47 | Discharge Summary ---
Date of Service May 03, 2020 Admission HPI Per Admitting Provider The patient is a 74-year-old female with a past medical history including chronic venous stasis dermatitis of bilateral lower extremities, CHF, obesity, diabetes, hypertension, endometrial cancer, history of diabetic foot ulcer, diabetic peripheral neuropathy, PAD, morbid obesity, depression with anxiety, hyperlipidemia, JACKIE, CKD stage III, COPD, atrial fibrillation and hypothyroidism. She has been following with the wound care clinic, and yesterday was released due to her lower extremity wounds healing. Today she reports she feels generally unwell, and is tearful and anxious in the exam room. She noted that while she was in the bathroom today blood was coming from her right third toe, and she is unaware of any injury to it. Principal Diagnosis Hospice for CHF and renal failure Discharge Exam Constitutional WD/WN, vitals as above Eyes EOM intact bilaterally; no conjunctival abnormality ENMT external ear and nose normal, oropharynx normal Neck trachea midline, no thyromegaly normal visual inspection Respiratory + labored breathing, + tachypneic and + prolonged expiratory phase; no respiratory distress and + not able to speak in complete sentence Auscultation: + diminished lung sounds Cardiovascular RRR, no murmur, no edema Gastrointestinal (Abdomen) Inspection/Auscultation: abdomen normal to inspection; abdomen not distended Musculoskeletal no cyanosis or clubbing, extremities motor strength 5/5 Skin no rashes, warm and dry Neurologic moves all extremities and awake Psychiatric Orientation: alert, oriented to person and cooperative Discharge Data Allergies Allergy/AdvReac Type Severity Reaction Status Date / Time Penicillins Allergy Intermediate HIVES Verified 04/21/20 19:35 mineral oil Allergy Unknown Verified 04/21/20 19:35 metronidazole AdvReac Unknown NAUSEA Verified 04/21/20 19:35 ceresin [From Eucerin] AdvReac Redness of Verified 04/21/20 19:35 Skin emollient combination no.33 AdvReac Redness of Verified 04/21/20 19:35 [From Eucerin] Skin isopropyl myristate AdvReac Redness of Verified 04/21/20 19:35 [From Eucerin] Skin lanolin alcohols AdvReac Redness of Verified 04/21/20 19:35 [From Eucerin] Skin mineral oil [From Eucerin] AdvReac Redness of Verified 04/21/20 19:35 Skin soap [From Eucerin] AdvReac Redness of Verified 04/21/20 19:35 Skin water [From Eucerin] AdvReac Redness of Verified 04/21/20 19:35 Skin Consultations 04/21/20 21:05 ED Decision to Admit Stat 04/22/20 01:25 Consult Case Management - Discharge Planning Routine 04/25/20 20:03 Consult Pulmonology Routine 04/28/20 08:59 Consult Palliative Care Routine 04/29/20 12:25 Consult Case Management - Discharge Planning Routine Consult Palliative Care Routine Ordered Studies 04/27/20 07:21 US liver Routine 04/27/20 18:37 US renal/blad retro comp Routine Hospital Course (1) Goals of care, counseling/discussion: Multiple notes from prior providers indicate the patient moved to comfort care from the ICU due to worsening kidney function and long-standing desire to never be on hemodialysis. Discussed with patient and on 05/01, and both in agreement she would never want HD. She also says she would not want any labs drawn for kidney function or other issues. She wants to go home. Her says this is not possible in her current state and requests physical therapy and possibly short rehab stay which she could not get if she goes on hospice. - Discussed with palliative today. - PT/OT to assess current status -> Not even able to move arms without shortness of breath. Patient and in agreement with hospice. (2) Acute respiratory distress: Patient continues to require BIPAP, but is on less now. Sometimes on 6L NC. - Transferred to [facility] on comfort measures. - Goal was to be able to discharge home on Saturday on hospice; now patient and asking about rehab. - PT/OT - Palliative care. (3) Osteomyelitis of third toe of right foot: Diabetic foot ulcer/osteomyelitis. - On daptomycin IV - Will keep on antibiotics while hospitalized. - Wound care consulted (4) CHF (congestive heart failure): Acute on chronic diastolic CHF on admission. ECHO with EF 50-55% and no changes noted from last ECHO on 11/10/19. - Chest x-ray on admission and repeat on 04/28 suggestive of acute CHF. - On torsemide per nephrology. - Continue diltiazem & metoprolol - Continue apixaban (5) Diabetic peripheral neuropathy associated with type 2 diabetes mellitus: Not on any direct treatment for peripheral neuropathy. Hold metformin. Hold home insulin lispro. - Continue long-acting and sliding scale. - Sugars have been doing well in the last 24 hours: 125 - 200. (6) CKD (chronic kidney disease) stage 3, GFR 30-59 ml/min: Patient appears to be having acute kidney failure. - Nephrology consulted - Signed off at this time due to comfort measures. - Cr was accidentally drawn today: now 3.4. (7) COPD (chronic obstructive pulmonary disease): No wheezing on exam today. Remains on BiPap frequently. - DuoNebs Q2h PRN (8) Atrial fibrillation: HR stable at present at 60. - Continue beta-markos & calcium channel markos for rate-control - Continue apixaban for anticoagulation (9) Hypothyroidism: - Continue levothyroxine 50 mcg daily (10) Depression with anxiety: On no direct treatment at this time, however, resumption of some form of treatment may need to be considered by hospice. (11) Hematuria: Noted in [place] on 04/27 after some thrashing with earlier breathing issues and likely traumatic. - UA + for blood, leuk est, neg nitrites - Pt without urinary complaints today. - Resolved by my exam on 04/30. (12) DVT prophylaxis: SCDs - Holding heparin given comfort status Total Time Total Time Spent Total Time Spent (In Minutes): 35 Discharge Plan Discharge Items Patient Disposition: Hospice - Medical Facility Reason For Visit: CHF,PNEUMONIA,OSTEO OF TOES Discharge Diagnosis: Kidney failure, CHF Activity: Resume your previous activity Non-emergency contact: Primary Care Provider Call non-emergency contact if: your symptoms worsen Follow-up/Referrals: Lee Bryant DO [Primary Care Provider] - Diet: Heart Healthy Addtl Attending Provider Instructions: Ms. Arellano was admitted for respiratory difficulty stemming from CHF and CKD. Her kidneys continued to worsen and she has required BiPap on and off during her admission. She is adamant that she not pursue hemodialysis. She and family jointly decided to pursue hospice for comfort. Pending Studies at Discharge: No Stand-Alone Forms: My [facility] Skilled Items Patient informed of condition?: Yes DNR: Yes Discharge Level of Care: Other Communicable Disease: No Discharge Prognosis: Deteriorating Lines: None Urinary Catheter: Yes Medications and DC Order Prescriptions: New lorazepam 0.5 mg Tablet 0.5 mg PO Q4H PRN (Reason: anxiety) Qty: 3 RF: 0 morphine concentrate 100 mg/5 mL (20 mg/mL) Solution 5 mg PO Q2H PRN (Reason: Pain or shortness of breath) Qty: 15 RF: 0 torsemide 100 mg Tablet 100 mg PO QAM Qty: 1 RF: 0 atropine 1 % Drops 4 drp sublingual Q1H PRN (Reason: secretions) Qty: 2 RF: 0 docusate sodium 100 mg Capsule 100 mg PO BID Qty: 1 RF: 0 insulin aspart U-100 [Novolog Flexpen U-100 Insulin] 100 unit/mL (3 mL) Insulin Pen See Rx Instructions .ROUTE .COMPLEX Qty: 1 RF: 0 Lantus Solostar U-100 Insulin 100 unit/mL (3 mL) Insulin Pen 15 unit SC BID Qty: 1 RF: 0 Continued albuterol sulfate 90 mcg/actuation HFA aerosol inhaler 1 - 2 puff Inhalation Q4H PRN (Reason: Shortness Of Breath Or Wheezing) Qty: 18 RF: 5 (DME) pen needle, diabetic [Unifine Pentips] 29 gauge x 1/2" needle See Rx Instructions .ROUTE .MEDSUPPLY Qty: 200 RF: 5 blood sugar diagnostic [OneTouch Ultra Blue Test Strip] Strip See Rx Instructions .ROUTE .COMPLEX Qty: 100 RF: 11 allopurinol 100 mg tablet 100 mg PO DAILY@1800 Qty: 90 RF: 0 diltiazem HCl 240 mg capsule,extended release 24hr 240 mg PO QAM Qty: 90 RF: 0 levothyroxine 50 mcg tablet 50 mcg PO QAM Qty: 90 RF: 0 metoprolol succinate 100 mg tablet extended release 24 hr 150 mg PO QAM Qty: 90 RF: 0 (DME) Oxygen Home Liters Per Minute See Dose Instructions .ROUTE .MEDSUPPLY Qty: 1 RF: 0 albuterol sulfate 2.5 mg /3 mL (0.083 %) solution for nebulization 2.5 mg inhalation Q4 PRN (Reason: shortness of breath or wheezing) RF: 0 nystatin [Nystop] 100,000 unit/gram powder 1 applic topical TID RF: 0 acetaminophen [Tylenol Extra Strength] 500 mg Tablet 500 mg PO Q4H PRN (Reason: Pain) RF: 0 lidocaine 5 % adhesive patch,medicated 1 patch TOP DAILY PRN (Reason: pain) Qty: 15 RF: 0 Discontinued Humulin 70/30 U-100 KwikPen 100 unit/mL (70-30) insulin pen 82 unit subcut QAM Qty: 160 RF: 0 atorvastatin 40 mg tablet 40 mg PO DAILY Qty: 90 RF: 0 insulin lispro [Humalog KwikPen Insulin] 100 unit/mL insulin pen 10 units subcut DAILY@1200 RF: 0 metformin 500 mg tablet See Rx Instructions .ROUTE .COMPLEX Qty: 270 RF: 0 potassium chloride [Klor-Con M20] 20 mEq tablet,ER particles/crystals 40 meq PO QAM Qty: 180 RF: 0 Xarelto 15 mg tablet 15 mg PO QPM Qty: 90 RF: 0 bumetanide 1 mg tablet See Rx Instructions PO BID RF: 0 Humulin 70/30 U-100 KwikPen 100 unit/mL (70-30) insulin pen 85 unit SUBCUT QPM RF: 0 cholecalciferol (vitamin D3) [Vitamin D3] 2,000 unit Tablet 2,000 units PO DAILY@1200 RF: 0 magnesium oxide 400 mg magnesium tablet 800 mg PO DAILY@1200 RF: 0 Discharge Orders: Discharge Order (Routine); Ordered 05/03/20 Ordered By: Mikal Garvey/Other Patient Handouts: Managing Type 2 Diabetes Admission Data Admit Date/Time: 04/21/20 23:22 Attending Provider: Mikal Marie Admit Provider: Deven Mak Primary Care Provider: Lee Bryant Other Providers: Cindy Galarza ; [facility], ; [facility] ; [facility] ; Esequiel Chaney ; Mikal Marie Other Interventions: Discharge Summary Assessment (RN) Last Done: 05/03/20 13:26 Coding Level of Care Code D/C Day Management >30 mins Diagnoses Goals of care, counseling/discussion Z71.89 Acute respiratory distress R06.03 Osteomyelitis of third toe of right foot M86.9 CHF (congestive heart failure) I50.9 Heart failure chronicity: chronic Heart failure type: unspecified Diabetic peripheral neuropathy associated with type 2 diabetes mellitus E11.42 CKD (chronic kidney disease) stage 3, GFR 30-59 ml/min N18.3 COPD (chronic obstructive pulmonary disease) J44.9 Atrial fibrillation I48.91 Hypothyroidism E03.9 Depression with anxiety F41.8 Hematuria R31.9 DVT prophylaxis Z29.9
== END 2020-05-03 18:00 | disposition hospice, inpatient (51) | DRG 291 ==
LOC: ED 18:11 → 2S 23:22 → SUATTDRO 23:22 → 2S 04-22 00:46 → 1E 04-26 13:29 → 3N 04-29 14:11